=== PATIENT | male | born 1960 | race Caucasian/White ===

== ENCOUNTER 2024-09-30 11:58 | Inpatient (IN) | payer OTHER, MEDICARE ==
[~2024-09-30] VITALS: Ht 177.8 cm; Wt 70.4 kg
--- NOTE | 2024-09-30 12:47 | ED.PDOC ---
Musculoskeletal HPI Comments HPI: 64y M who presents to the ED for chief complaint of extremity pain. Pt has the following ED course. Patient denies pain in the affected extremity but he complains of numbness only. - pt has been having R foot pain for the few months but got worse lately in the last three days. - pt has been having numbness that has been constant during this time period but states he had pain 3 days prior but states that the pain is gone but the numbness is only present with the touch. He points at the dorsum of his right foot. - pt states he has previously had stents placed in R and L leg. The right extremity was done at least seven years ago - pt denies any associated fall or injury - pt denies any associated shortness of breath, chest pain or any other symptoms VITALS: Temp: 98.0 F RR: 20 02 sat : 95% on room air HR: 70 BP: 148/81 PMH: denies PSH:bilateral lower extremity stents Social history: endorses tobacco use, endorses ETOH use, denies drug use Medications: denies Allergies: none HPI: Poor Historian. Past Medcial History: Past Surgical History: REVIEW OF SYSTEMS: CONSTITUTIONAL: Denies acute: fever, diaphoresis, chills, generalized weakness. HEAD: Denies acute: headache, photophobia Eyes: Denies acute: Double vision, vision loss, eye pain, eye discharge. EARS: Denies acute: tinnitus, hearing loss, ear discharge, ear pain, THROAT: Denies acute: sore throat, swelling, difficulty swallowing , pain with swallowing, change in voice. NECK: Denies acute: neck pain, neck swelling, stiff neck. HEART: Denies acute : chest pain, palpitations, LUNGS: Denies acute: SOB, wheezing, cough, hemoptysis ABDOMEN: Denies acute: abdominal pain, Nausea, Vomiting, diarrhea, melena , hematemesis, hematochezia SKIN: Denies acute: rash, redness, lesions, itchiness. EXTREMITIES: Denies acute: calf pain, numbness, tingling, weakness, Denies acute: Low back pain. Neuro: Denies acute: focal neurological deficit, motor or sensory focal neurological deficit, tremors, seizure like activity, confusion, dizziness, change in mental status, loss of bowel or bladder function, cauda equina like symptoms. : Denies acute: dysuria, hematuria, flank pain, increase in urinary frequency. PSYCH: Denies acute: hallucination, suicidal ideation, homicidal ideation. PHYSICAL EXAM: General: no acute distress, awake and alert. Head: normocephalic, atraumatic. Neck: supple, trachea is midline, no swelling. Throat: Normal phonation. Eyes:, no erythema, no purulent discharge, no proptosis, no icterus. Heart: regular rate, regular rhythm, no significant murmur appreciated. Lungs: no apparent respiratory distress, Able to speak in full sentences. No wheezing, no rhonchi, no crackles. No stridors Clear to auscultation bilaterally. Abdomen: non tender to palpation, non distended, soft, no guarding, no rebound, + bowel sounds. Neuro: Awake, Alert, oriented to name, self, situation, follows commands GCS=15. Speech is normal. Skin: no petechia, no purpura, no cyanosis, non-pale, not jaundice. Lower extremities: --no - Pitting edema no deformity, no focal swelling, no calf TTP. Evaluation of the area of complaint which is at the dorsum of the right foot reveals no swelling no erythema. Patient is neurovascularly intact in the affected extremity. Motor and sensory are present. Makes eye contact. moves all four extremities. Face: no apparent facial droop. Ambulating in the ED independently. Pedal pulses are palpable. Chief Complaint: Lower Extremity Time Seen by MD: 13:02 Reviewed Notes: Nurses Notes, Allergies Allergies: Coded Allergies: NO KNOWN ALLERGIES (Unverified , 09/30/24) Information Source: Patient, Relative Mode of Arrival: Ambulatory Brought in by: family member Location: Right Was a procedure done? Was a procedure done?: No X-Ray, Labs, Meds, VS Vital Signs Date Time Temp Pulse Resp B/P (MAP) Pulse Ox O2 Delivery O2 Flow Rate FiO2 09/30/24 19:38 89 17 96 Room Air* 0 21 09/30/24 19:14 89 17 140/56 (84) 96 09/30/24 18:07 189/88 09/30/24 17:55 96 17 189/88 (121) 100 09/30/24 16:51 203/97 09/30/24 16:41 78 17 214/94 (134) 97 09/30/24 16:40 97.6 79 18 203/97 (132) 96 97.6 09/30/24 16:40 79 18 96 Room Air 09/30/24 12:16 98.0 70 20 148/81 (103) 95 Lab Test 09/30/24 13:14 Range/Units White Blood Count 7.2 4.4-10.8 10^3/uL Red Blood Count 4.19 L 4.5-5.90 10^6/uL Hemoglobin 13.9 13.5-17.5 g/dL Hematocrit 40.8 L 41.0-53.0 % Mean Corpuscular Volume 97.3 80.0-100.0 fL Mean Corpuscular Hemoglobin 33.2 H 28.0-32.0 pg Mean Corpuscular Hemoglobin Concent 34.2 32.0-36.0 g/dL Red Cell Distribution Width 14.4 H 11.8-14.3 % Platelet Count 277 140-450 10^3/uL Mean Platelet Volume 7.0 6.9-10.8 fL Neutrophils (%) (Auto) 50.9 37.0-80.0 % Lymphocytes (%) (Auto) 37.9 10.0-50.0 % Monocytes (%) (Auto) 7.3 0.0-12.0 % Eosinophils (%) (Auto) 3.2 0.0-7.0 % Basophils (%) (Auto) 0.7 0.0-2.0 % Neutrophils # (Auto) 3.7 1.6-8.6 10 ^3/uL Lymphocytes # (Auto) 2.7 0.4-5.4 10 ^3/uL Monocytes # (Auto) 0.5 0-1.3 10 ^3/uL Eosinophils # (Auto) 0.2 0-0.8 10 ^3/uL Basophils # (Auto) 0.1 0-0.2 10 ^3/uL Nucleated Red Blood Cells 0.0 % Erythrocyte Sedimentation Rate 16 0-20 mm/hr Sodium Level 133 L 136-145 mmol/L Potassium Level 4.4 3.5-5.1 mmol/L Chloride Level 102 98-107 mmol/L Carbon Dioxide Level 26 20-31 mmol/L Anion Gap 5 5-15 Blood Urea Nitrogen 8 L 9-23 mg/dL Creatinine 0.68 L 0.700-1.30 mg/dL Glomerular Filtration Rate Calc 103 >90 mL/min BUN/Creatinine Ratio 11.8 10.0-20.0 Serum Glucose 74 74-106 mg/dL Lactic Acid Level 1.3 0.4-2.0 mmol/L Calcium Level 9.3 8.7-10.4 mg/dL Total Bilirubin 0.2 0.2-1.0 mg/dL Aspartate Amino Transferase (AST) 21 13-40 U/L Alanine Aminotransferase (ALT) 16 7-40 U/L Alkaline Phosphatase 76 46-116 U/L Creatine Kinase 60 46-171 U/L C-Reactive Protein High Sensitivity 0.29 <1.0 mg/dL Total Protein 7.2 5.7-8.2 g/dL Albumin 4.3 3.2-4.8 g/dL Current Medications Medications (Trade) Dose Ordered Sig/Omar Route Start Time Stop Time Status Last Admin Aspirin (Ecotrin Enteric Coated Tablet) 325 mg ONCE ONCE PO 09/30/24 15:45 09/30/24 16:25 DC 09/30/24 16:32 Hydralazine HCl (Apresoline Injection) 10 mg ONCE ONCE IV 09/30/24 16:45 09/30/24 16:46 DC 09/30/24 16:51 Heparin Sodium (Porcine) 5,000 units ONCE ONCE IV 09/30/24 17:15 09/30/24 17:26 DC 09/30/24 18:10 Hydralazine HCl (Apresoline Injection) 10 mg ONCE ONCE IV 09/30/24 18:00 09/30/24 18:01 DC 09/30/24 18:07 [place] [id number] Ph: [phone] DIAGNOSTIC IMAGING Diagnostic Imaging Report : [id number] Signed PATIENT: BOB PIERRE ACCT: [id number] UNIT: [id number] : 1960 LOC: ER ROOM / BED: / AGE / SEX: 64 / M ADM STATUS: REG ER SERVICE [id number] ORDERING PHYSICIAN: MARK DUFF DO PROCEDURE(s): CTAAA - CT ANGIO ABD AORTA W RUN OFF REASON: arterial occlusion ORDER NUMBER(s): [id number], ACCESSION NUMBER(s): [id number] Examination: CT CT ANGIO ABD AORTA W RUN OFF CLINICAL HISTORY: arterial occlusion Comparison: None Technique: Using helical technique, CT data from the lung bases through the toes was obtained during rapid IV contrast infusion. The examination was timed to the arterial system to generate a CT angiographic study. 3D images were generated at an independent work station. Dose reduction techniques included automated exposure control. CONTRAST: Type of contrast: Omni 350 Contrast injected: 99ml Radiation Dose Information: CT Dose: CTDI volume is 7.08 mGy. Dose-length product is 1021.32 mGy*cm Findings: Abdominal aorta: Normal caliber, patent. Diffuse calcified atherosclerotic disease. Eccentric calcified plaque in the juxtarenal abdominal aorta results in a yxqc-dv-aojuyvlt stenosis. 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 SMA: Kbni-rx-aluhaoal stenosis of the origin of the superior mesenteric artery. Renal arteries: High-grade stenosis of the proximal right renal artery. Mild to moderate stenosis of the proximal left renal artery. Accessory right renal artery is patent. NORA: Patent Right lower extremity: Common iliac artery: High-grade stenosis or focal occlusion of the proximally. External iliac artery: Xalc-hz-gxhhblsj stenosis proximally. Internal iliac artery: Patent Common femoral artery: Bdtw-qm-wknwkjxn stenosis. Profunda femoral artery: Patent Superficial femoral artery: Occluded stent distally Popliteal artery: Patent but diminutive Anterior tibial artery: Patent Peroneal tibial trunk: Patent Peroneal artery: Patent Posterior tibial artery: Occluded Dorsalis pedis artery: Patent Left lower extremity: Common iliac artery: High-grade stenosis or focal occlusion proximally External iliac artery: Patent Internal iliac artery: Patent Common femoral artery: Vvdm-pz-qesatmmw stenosis Profunda femoral artery: Patent Superficial femoral artery: Occluded stent distally Popliteal artery: Diminutive Anterior tibial artery: Patent Peroneal tibial trunk: Patent Peroneal artery: Patent Posterior tibial artery: Patent Dorsalis pedis artery: Patent Lung bases: Clear Abdomen/Pelvis: Liver: The liver is normal in size and morphology,. No focal hepatic lesion. Biliary System: Gallbladder: Normal Bile Ducts: No intrahepatic or extrahepatic biliary ductal dilation. Spleen: No splenomegaly or focal splenic lesion. Pancreas: No masses or ductal dilation. Adrenals: Normal. Urinary System: Kidneys and Ureters: Severe right hydronephrosis. Oevn-vw-sdfeiobz left hydronephrosis. Bladder: Distended GI System: Stomach, small bowel, and large bowel are normal in caliber without wall thickening or dilation appendix is not identified. Lymph nodes: No lymphadenopathy. Peritoneal cavity and surface: No free fluid. No pneumoperitoneum. Soft Tissues: Normal. Reproductive Organs: Normal. Bones: No acute fracture or aggressive osseous lesion. Impression: Vascular: 1. Diffuse advanced atherosclerotic disease. Otgy-mt-hchlnzdo stenosis of the juxtarenal abdominal aorta. No aneurysm. Moderate stenosis of the celiac. Qufg-nq-galqbooj stenosis of the superior mesenteric. 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 Uejh-mr-gnccbmja stenosis of the left renal artery. 2. Vascular surgery or interventional radiology evaluation is recommended. Right Lower Extremity: 1. 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 2. Occluded stent in the distal right superficial femoral artery. 3. 2-vessel runoff to the right foot via the anterior tibial and peroneal arteries. Left Lower Extremity: 1. High-grade stenosis or occlusion of the proximal left common iliac artery. 2. Occluded stent in the distal left superficial femoral artery. 3. Patent 3 vessel runoff Abdomen/Pelvis: 1. Moderate to severe right hydronephrosis. Bigf-nd-nvdcekgy left hydronephrosis. Distended bladder. Suspect bladder outlet obstruction. HS:Y ATED BY: AMADO MORROW MD DICTATED DATE/TIME: 09/30/241757 SIGNED BY: AMADO MORROW MD SIGNED DATE/TIME: 09/30/241757 CC: [place] [address] Ph: [phone] DIAGNOSTIC IMAGING Diagnostic Imaging Report : [id number] Signed PATIENT: BOB PIERRE ACCT: [id number] UNIT: [id number] : 1960 LOC: ER ROOM / BED: / AGE / SEX: 64 / M ADM STATUS: REG ER SERVICE [id number] ORDERING PHYSICIAN: MARK DUFF DO PROCEDURE(s): BLDVT - BiLat Lower DVT REASON: numbness ORDER NUMBER(s): [id number], ACCESSION NUMBER(s): [id number] Bilateral lower extremity venous duplex Clinical History: numbness Comparison: None Technique: Duplex Doppler evaluation of the deep venous systems of both lower extremities from the common femoral veins to the popliteal veins including color Doppler and spectral/pulsed waveform analysis was performed. Findings: RIGHT SIDE: The common femoral vein demonstrates appropriate compressibility and waveform variability. There is compressibility/patency of the great saphenous vein at the proximal thigh. The femoral vein demonstrates appropriate compressibility and waveform variability. The deep femoral vein demonstrates appropriate compressibility and waveform variability. The popliteal vein demonstrates appropriate compressibility and waveform variability. There is normal compressibility at the tibioperoneal trunk. LEFT SIDE: The common femoral vein demonstrates appropriate compressibility and waveform variability. There is compressibility/patency of the great saphenous vein at the proximal thigh. The femoral vein demonstrates appropriate compressibility and waveform variability. The deep femoral vein demonstrates appropriate compressibility and waveform variability. The popliteal vein demonstrates appropriate compressibility and waveform variability. There is normal compressibility at the tibioperoneal trunk. Impression: 1. No right or left femoropopliteal venous thrombosis. HS:Y ATED BY: LIZ SAMPSON DO DICTATED DATE/TIME: 09/30/241432 SIGNED BY: LIZ SAMPSON DO SIGNED DATE/TIME: 09/30/241432 CC: [place] [address] Ph: [phone] DIAGNOSTIC IMAGING Diagnostic Imaging Report : [id number] Signed PATIENT: BOB PIERRE ACCT: [id number] UNIT: [id number] : 1960 LOC: ER ROOM / BED: / AGE / SEX: 64 / M ADM STATUS: REG ER SERVICE 1216 ORDERING PHYSICIAN: MARK DUFF DO PROCEDURE(s): BLEAD - BiLat Low Ext Art Duplex REASON: numbness ORDER NUMBER(s): [id number], ACCESSION NUMBER(s): [id number] EXAM: US BILAT LOW EXT ART DUPLEX HISTORY: numbness COMPARISON: US BILAT LOWER DVT on DOS: 09/30/24 TECHNIQUE: Real-time grayscale and color Doppler images of the bilateral lower extremities were obtained with spectral waveform analysis. Findings: Arterial peak systolic velocities reported in units of centimeters per second (cm/sec): Moderate atherosclerosis bilaterally. Right side: Common femoral - 82.7 Profunda - 51.9 Proximal SFA - 34.3 Mid SFA - 23.0 Distal SFA - 0 Popliteal - 0 Posterior tibial - 0 Dorsalis pedis - 7.2 Proximal and mid superficial femoral and dorsalis pedis arteries demonstrate monophasic waveforms. Stent in the mid to distal superficial artery. Left side: Common femoral - 87.6 Profunda - 116.8 Proximal SFA - 95.1 Mid SFA - 61.1 Distal SFA - 37.9 Popliteal - 6.2 Posterior tibial - 40.3 Dorsalis pedis - 17.7 Distal superficial femoral to dorsalis pedis arteries demonstrate monophasic waveforms. Stent in the distal superficial artery. IMPRESSION: 1. Occlusion of the right distal superficial femoral, popliteal, and posterior tibial arteries. 2. 75-99% stenosis of the left popliteal artery. Critical Result: Vascular occlusion Findings discussed with MARK DUFF at 09/30/2024 03:16 PM, and acknowledged receipt and understanding of the findings. ATED BY: YENY MELTON DO DICTATED DATE/TIME: 09/30/241516 SIGNED BY: YENY MELTON DO SIGNED DATE/TIME: 09/30/241516 CC: Time of 1ST Reevaluation: 17:08 (Discussed the case with the deployment manager on- call Dr. Hamilton at this time. He reviewed the ultrasound report. He recommends consulting Interventional Radiology. No further recommendations.) Time of 2ND Reevaluation: 17:22 (The case was discussed with the Interventional Radiology team (HPI, physical exam, labs and diagnostic tests that were available at the time of disposition, ED course, treatment plan) on the phone. He recommends heparin and CT angiogram with runoffs. He will review the CT scan. Dr. Mosquera. ) Time of 3RD Reevaluation: 17:40 (Case discussed with Dr. Génesis Mccartney on the phone. He said the findings are chronic.) Patient Education/Counseling: Diagnosis, Treatment Family Education/Counseling: Diagnosis, Treatment Comments MDM: Patient presented with the above HPI.----- lower extremity-- -workup was initiated. patient was found with the above mentioned diagnosis. the following medications were ordered: hydralazine, heparin, aspirin the following tests were ordered: EKG x1, bilateral lower extremity artery duplex, bilateral lower DVT, ESR, lactic acid, CMP, CBC, CRP, Patient ED course and VS have been stabilized. Patient has been reassessed in the ED and remained in a stable condition. Patient has been observed in the ED adequate length of time to insure improvement/stability. Escalation of care considered: Consideration of escalation to observation or admission. patient was ADMITTED to the medicine team for further evaluation and treatment of their presentation. All the reports of any imaging studies that were ordered by myself were reviewed by myself. Departure 1 Departure Time of Disposition: 15:31 Impression: Primary Impression: Arterial occlusion Additional Impression: Hydronephrosis Disposition: ADMITTED INPATIENT Admit to: [facility] Condition: Guarded Discharged With: Self Critical Care Note Critical Care Time?: No I personally scribed for MARK DUFF DO ([email or web address]) on 09/30/24 at 12:47. Electronically submitted by Javier Mccann ([employer]). I personally scribed for MARK DUFF DO ([email or web address]) on 09/30/24 at 12:51. Electronically submitted by Javier Mccann ([employer]). I personally scribed for MARK DUFF DO ([email or web address]) on 09/30/24 at 13:05. Electronically submitted by Javier Mccann ([employer]). I personally scribed for MARK DUFF DO ([email or web address]) on 09/30/24 at 20:39. Electronically submitted by Javier Mccann ([employer]). MARK DUFF DO Sep 30, 2024 12:47
[2024-09-30 13:26] LABS: Basophils # (auto) 0.1 10 ^3/uL (0-0.2); Basophils % (auto) 0.7 % (0.0-2.0); Eosinophils # (auto) 0.2 10 ^3/uL (0-0.8); Eosinophils % (auto) 3.2 % (0.0-7.0); Hematocrit 40.8 % (41.0-53.0); Hemoglobin 13.9 g/dL (13.5-17.5); Lymphocytes # (auto) 2.7 10 ^3/uL (0.4-5.4); Lymphocytes % (auto) 37.9 % (10.0-50.0); Mean Corpuscular Hemoglobin 33.2 pg (28.0-32.0); Mean Corpuscular Hgb Conc. 34.2 g/dL (32.0-36.0); Mean Corpuscular Volume 97.3 fL (80.0-100.0); Monocytes # (auto) 0.5 10 ^3/uL (0-1.3); Monocytes % (auto) 7.3 % (0.0-12.0); Neutrophils # (auto) 3.7 10 ^3/uL (1.6-8.6); Neutrophils % (auto) 50.9 % (37.0-80.0); Platelet Count (auto) 277 10^3/uL (140-450); Red Blood Cells 4.19 10^6/uL (4.5-5.90); Red Cell Distribution Width 14.4 % (11.8-14.3); White Blood Cell 7.2 10^3/uL (4.4-10.8)
[2024-09-30 13:47] LABS: Alanine Aminotransferase 16 U/L (7-40); Albumin 4.3 g/dL (3.2-4.8); Alkaline Phosphatase 76 U/L (46-116); Anion Gap 5 (5-15); Aspartate Aminotransferase 21 U/L (13-40); BUN/Creatinine Ratio 11.8 (10.0-20.0); CRP High Sensitivity 0.29 mg/dL (<1.0); Calcium 9.3 mg/dL (8.7-10.4); Carbon Dioxide 26 mmol/L (20-31); Chloride 102 mmol/L (98-107); Potassium 4.4 mmol/L (3.5-5.1)
[2024-09-30 13:48] LABS: Total Protein 7.2 g/dL (5.7-8.2)
[2024-09-30 13:52] LABS: Bilirubin, Total 0.2 mg/dL (0.2-1.0); Blood Urea Nitrogen 8 mg/dL (9-23); Glucose 74 mg/dL (74-106); Sodium 133 mmol/L (136-145)
[2024-09-30 13:59] LABS: Erythrocyte Sedimentation Rate 16 mm/hr (0-20)
--- NOTE | 2024-09-30 14:36 | DVH ---
Bilateral lower extremity venous duplex Clinical History: numbness Comparison: None Technique: Duplex Doppler evaluation of the deep venous systems of both lower extremities from the common femora l veins to the popliteal veins including color Doppler and spectral/pulsed waveform analysis was perf ormed. Findings: RIGHT SIDE: The common femoral vein demonstrates appropriate compressibility and waveform variability. There is compressibility/patency of the great saphenous vein at the proximal thigh. The femoral vein demonstrates appropriate compressibility and waveform variability. The deep femoral vein demonstrates appropriate compressibility and waveform variability. The popliteal vein demonstrates appropriate compressibility and waveform variability. There is normal compressibility at the tibioperoneal trunk. LEFT SIDE: The common femoral vein demonstrates appropriate compressibility and waveform variability. There is compressibility/patency of the great saphenous vein at the proximal thigh. The femoral vein demonstrates appropriate compressibility and waveform variability. The deep femoral vein demonstrates appropriate compressibility and waveform variability. The popliteal vein demonstrates appropriate compressibility and waveform variability. There is normal compressibility at the tibioperoneal trunk. Impression: 1. No right or left femoropopliteal venous thrombosis. HS:Y
--- NOTE | 2024-09-30 15:19 | DVH ---
EXAM: US BILAT LOW EXT ART DUPLEX HISTORY: numbness COMPARISON: US BILAT LOWER DVT on DOS: 09/30/24 TECHNIQUE: Real-time grayscale and color Doppler images of the bilateral lower extremities were obta ined with spectral waveform analysis. Findings: Arterial peak systolic velocities reported in units of centimeters per second (cm/sec): Moderate atherosclerosis bilaterally. Right side: Common femoral - 82.7 Profunda - 51.9 Proximal SFA - 34.3 Mid SFA - 23.0 Distal SFA - 0 Popliteal - 0 Posterior tibial - 0 Dorsalis pedis - 7.2 Proximal and mid superficial femoral and dorsalis pedis arteries demonstrate monophasic waveforms. St ent in the mid to distal superficial artery. Left side: Common femoral - 87.6 Profunda - 116.8 Proximal SFA - 95.1 Mid SFA - 61.1 Distal SFA - 37.9 Popliteal - 6.2 Posterior tibial - 40.3 Dorsalis pedis - 17.7 Distal superficial femoral to dorsalis pedis arteries demonstrate monophasic waveforms. Stent in the distal superficial artery. IMPRESSION: 1. Occlusion of the right distal superficial femoral, popliteal, and posterior tibial arteries. 2. 75-99% stenosis of the left popliteal artery. Critical Result: Vascular occlusion Findings discussed with MARK DUFF at 09/30/2024 03:16 PM, and acknowledged receipt and understandin g of the findings.
[2024-09-30] MEDS: ASPirin-EC 325mg tab PO ONE (16:32)
[2024-09-30] MEDS: hydrALAZINE HCL 20 MG/ML VL IV ONE ×2 (16:51→18:07)
[2024-09-30] MEDS: IOHEXOL 350 MG/ML 100ML IJ ONE (17:01)
--- NOTE | 2024-09-30 18:00 | DVH ---
Examination: CT CT ANGIO ABD AORTA W RUN OFF CLINICAL HISTORY: arterial occlusion Comparison: None Technique: Using helical technique, CT data from the lung bases through the toes was obtained during rapid IV contrast infusion. The examination was timed to the arterial system to generate a CT angiogr aphic study. 3D images were generated at an independent work station. Dose reduction techniques inclu ded automated exposure control. CONTRAST: Type of contrast: Omni 350 Contrast injected: 99ml Radiation Dose Information: CT Dose: CTDI volume is 7.08 mGy. Dose-length product is 1021.32 mGy*cm Findings: Abdominal aorta: Normal caliber, patent. Diffuse calcified atherosclerotic disease. Eccentric calcif ied plaque in the juxtarenal abdominal aorta results in a osjy-po-pgqvkbah stenosis. 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 SMA: Jzre-bm-ioydwszn stenosis of the origin of the superior mesenteric artery. Renal arteries: High-grade stenosis of the proximal right renal artery. Mild to moderate stenosis of the proximal left renal artery. Accessory right renal artery is patent. NORA: Patent Right lower extremity: Common iliac artery: High-grade stenosis or focal occlusion of the proximally. External iliac artery: Ycug-zl-rlrjzylf stenosis proximally. Internal iliac artery: Patent Common femoral artery: Xtxc-gn-qsgvqvlk stenosis. Profunda femoral artery: Patent Superficial femoral artery: Occluded stent distally Popliteal artery: Patent but diminutive Anterior tibial artery: Patent Peroneal tibial trunk: Patent Peroneal artery: Patent Posterior tibial artery: Occluded Dorsalis pedis artery: Patent Left lower extremity: Common iliac artery: High-grade stenosis or focal occlusion proximally External iliac artery: Patent Internal iliac artery: Patent Common femoral artery: Wcrq-od-ucpozppi stenosis Profunda femoral artery: Patent Superficial femoral artery: Occluded stent distally Popliteal artery: Diminutive Anterior tibial artery: Patent Peroneal tibial trunk: Patent Peroneal artery: Patent Posterior tibial artery: Patent Dorsalis pedis artery: Patent Lung bases: Clear Abdomen/Pelvis: Liver: The liver is normal in size and morphology,. No focal hepatic lesion. Biliary System: Gallbladder: Normal Bile Ducts: No intrahepatic or extrahepatic biliary ductal dilation. Spleen: No splenomegaly or focal splenic lesion. Pancreas: No masses or ductal dilation. Adrenals: Normal. Urinary System: Kidneys and Ureters: Severe right hydronephrosis. Jxly-pp-jttdgazg left hydronephrosis. Bladder: Distended GI System: Stomach, small bowel, and large bowel are normal in caliber without wall thickening or dil ation appendix is not identified. Lymph nodes: No lymphadenopathy. Peritoneal cavity and surface: No free fluid. No pneumoperitoneum. Soft Tissues: Normal. Reproductive Organs: Normal. Bones: No acute fracture or aggressive osseous lesion. Impression: Vascular: 1. Diffuse advanced atherosclerotic disease. Yhoc-xu-ommcfzwo stenosis of the juxtarenal abdominal ao rta. No aneurysm. Moderate stenosis of the celiac. Iuaw-zj-cujxgujd stenosis of the superior mesente alley. 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 Olef-vo-urvicqun stenosis of the left renal arter y. 2. Vascular surgery or interventional radiology evaluation is recommended. Right Lower Extremity: 1. 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 2. Occluded stent in the distal right superficial femoral artery. 3. 2-vessel runoff to the right foot via the anterior tibial and peroneal arteries. Left Lower Extremity: 1. High-grade stenosis or occlusion of the proximal left common iliac artery. 2. Occluded stent in the distal left superficial femoral artery. 3. Patent 3 vessel runoff Abdomen/Pelvis: 1. Moderate to severe right hydronephrosis. Btee-ji-cwzwdihj left hydronephrosis. Distended bladder. Suspect bladder outlet obstruction. HS:Y
[2024-09-30] MEDS: HEPARIN SODIUM (PORCINE) 5000 UNITS/ML 1ML VIAL IV ONE (18:10)
[2024-09-30 19:38] VITALS: PULSE 89; RESP 17; O2SAT 96
[2024-09-30] MEDS ORDERED: MORPHINE SULFATE INJ 2 MG/ml SYRG IV PRN (21:30)
[2024-09-30] MEDS ORDERED: NITROGLYCERIN 0.4 MG SL TAB SL PRN (21:30)
[2024-09-30] MEDS: LOSARTAN POTASSIUM 50 MG TAB PO ONE (21:45)
[2024-09-30] MEDS: NIFEdipine ER 30 MG TAB PO ONE (21:45)
[2024-09-30 22:25] LABS: Basophils # (auto) 0 10 ^3/uL (0-0.2); Basophils % (auto) 0.5 % (0.0-2.0); Eosinophils # (auto) 0.2 10 ^3/uL (0-0.8); Eosinophils % (auto) 1.9 % (0.0-7.0); Hematocrit 40.2 % (41.0-53.0); Hemoglobin 13.9 g/dL (13.5-17.5); Lymphocytes # (auto) 1.8 10 ^3/uL (0.4-5.4); Lymphocytes % (auto) 20.5 % (10.0-50.0); Mean Corpuscular Hemoglobin 33.9 pg (28.0-32.0); Mean Corpuscular Hgb Conc. 34.6 g/dL (32.0-36.0); Mean Corpuscular Volume 97.9 fL (80.0-100.0); Monocytes # (auto) 0.9 10 ^3/uL (0-1.3); Monocytes % (auto) 10.8 % (0.0-12.0); Neutrophils # (auto) 5.7 10 ^3/uL (1.6-8.6); Neutrophils % (auto) 66.3 % (37.0-80.0); Platelet Count (auto) 268 10^3/uL (140-450); Red Cell Distribution Width 14.1 % (11.8-14.3); White Blood Cell 8.6 10^3/uL (4.4-10.8)
[2024-09-30] MEDS ORDERED: HEPARIN DRIP/D5W 100UNITS/ML 250 ML IV SCH (22:30)
[2024-09-30 22:57] LABS: Alanine Aminotransferase 16 U/L (7-40); Albumin 4.5 g/dL (3.2-4.8); Alkaline Phosphatase 106 U/L (46-116); Anion Gap 3 (5-15); Aspartate Aminotransferase 23 U/L (13-40); BUN/Creatinine Ratio 17.3 (10.0-20.0); Blood Urea Nitrogen 13 mg/dL (9-23); Calcium 9.6 mg/dL (8.7-10.4); Carbon Dioxide 27 mmol/L (20-31); Chloride 103 mmol/L (98-107); LDL Cholesterol 83 mg/dL (< 100); Potassium 4.2 mmol/L (3.5-5.1)
[2024-09-30 22:58] LABS: Cholesterol 151 mg/dL (< 200); HDL Cholesterol 53 mg/dL (40-59)
[2024-09-30 22:59] LABS: Total Protein 7.8 g/dL (5.7-8.2)
[2024-09-30 23:00] LABS: Bilirubin, Total 0.2 mg/dL (0.2-1.0); Glucose 122 mg/dL (74-106); Sodium 133 mmol/L (136-145); Triglycerides 151 mg/dL (< 150)
[2024-09-30 23:04] LABS: INR 1.08 (0.9-1.15); Partial Thromboplastin Time 29.9 SEC (24.5-34.5); Prothrombin Time 11.4 sec (9.3-11.8)
--- NOTE | 2024-09-30 23:11 | DVHHPRES ---
History of Present Illness Resident Creating Document: DEVYN QUINTERO RESIDENT History of Present Illness Patient 64-year-old male with a past medical history hypertension and peripheral artery disease came to the ED with a chief complaint of right foot numbness for the past 3 days. Patient reports that 3 days ago he started to feel numbness in his right foot hand with a past 2-3 months he reports pain in his left calf after walking for about 100 ft. Patient also reports intermittent dizziness on walking but has not had an episode of loss of consciousness. Patient has a histo ry of peripheral artery disease with stents to his left and right femoral arteries. While in the ER patient's blood pressure was elevated at 203/97 mmHg following which he was given a dose of hydralazine 10 mg and another dose given about 4 hours later for elevated blood pressure SBP greater than 200. Past Medical History Hypertension(not on any medication), peripheral artery disease, generalized anxiety disorder Past Surgical History Peripheral artery disease s/p PTCA x 2 Stent to the left femoral in 2021, right femoral 2018 Past Social History 50 pack year smoking history, drinks 4-5 short can of beer every day Denies any other drug use Review of Systems Review of Systems Patient was seen and examined at the bedside. Patient reports numbness in the right foot but denies pain in the right or left leg Denies chest pain, shortness of breath, dizziness, headache, vision changes Allergies: Coded Allergies: NO KNOWN ALLERGIES (Unverified , 09/30/24) Medications Current Medications Medications Dose Ordered Sig/Omar Route Start Time Stop Time Status Last Admin Dose Admin Nitroglycerin 0.4 mg Q5MINP PRN SL 09/30/24 21:30 Morphine Sulfate 2 mg Q30M PRN IV 09/30/24 21:30 Heparin Sodium/ Dextrose 250 ml @ 10.008 mls/ hr Q24H IV 09/30/24 21:30 UNV Heparin Sodium/ Dextrose 250 ml @ 10 mls/hr Q24H IV 09/30/24 22:30 Exam Vital Signs Vital Signs Date Time Temp Pulse Resp B/P (MAP) Pulse Ox O2 Delivery O2 Flow Rate FiO2 09/30/24 21:45 228/103 09/30/24 21:00 79 16 100 09/30/24 19:38 Room Air* 0 21 09/30/24 16:40 97.6 97.6 Exam Physical Examination Constitutional- patient was alert and oriented to time, place and person. Patient walks with a limp. Gen - no pallor, no icterus, no cyanosis, no clubbing, no LAD, no edema . HEENT - normocephalic, atraumatic, dry mucous membranes, bilateral carotid bruit heard Neck - full ROM, no LAD, no JVD Pulmonary - B/L breath sounds heard. no crackles, no wheezing cardiovascular - normal S1,S2 heard. no cardiac murmurs. Radial pulses 2+, dorsalis pedis and posterior tibial pulse not felt bilaterally. capillary refill >4 seconds in the toes GI - soft abdomen without tenderness to palpation. no hepatospleenomegaly. Bowel sounds normoactive Neurological - Patient is A/O X 3. Bilateral upper extremity strength 5/5, bilateral lower extremity strength 5/5, no facial droop, normal speech, no tremor, no sensory deficiets. Extremities: Both the feet are cold and clammy. No ulcers seen Labs/Xrays Labs Test 09/30/24 22:00 09/30/24 13:14 Range/Units Eosinophils (%) (Auto) 3.2 0.0-7.0 % Eosinophils # (Auto) 0.2 0-0.8 10 ^3/uL Basophils # (Auto) 0.1 0-0.2 10 ^3/uL Nucleated Red Blood Cells 0.0 % Erythrocyte Sedimentation Rate 16 0-20 mm/hr Lactic Acid Level 1.3 0.4-2.0 mmol/L Creatine Kinase 60 46-171 U/L C-Reactive Protein High Sensitivity 0.29 <1.0 mg/dL Assessment/Plan Assessment/Plan Assessment and plan # Peripheral artery disease - Bilateral lower extremity arterial duplex shows occlusion of the right distal superficial femoral, popliteal, posterior tibial and 75-99% stenosis of the left popliteal artery. - CT angio abdominal aorta with runoff 1. Right lower extremity: High-grade stenosis or occlusion of the proximal right common iliac, occluded stent in the distal right superficial femoral, two- vessel runoff to the right foot via the anterior tibial and peroneal arteries. 2. Left lower extremity: High-grade stenosis or occlusion of the proximal left common iliac artery, occluded stent in the distal left superficial femoral, patent three-vessel runoff. - Given loading dose of aspirin 325 mg - on heparin drip - aspirin 81 mg q.d. - atorvastatin 80 mg q.d. - vascular surgeon consulted - cardiology consulted # Hypertensive urgency # Renal artery stenosis - CT angio abdominal aorta runoff shows Diffuse advanced atherosclerotic disease, kkbz-sk-vypwnmie stenosis of the juxtarenal abdominal aorta, no aneurysm. Moderate stenosis of the celiac. Sbtl-vl-yhhyilvi stenosis of the superior mesenteric. 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 Lbbc-yn-fwpzlzwx stenosis of the left renal artery. - patient is started on losartan 50 mg and nifedipine 90 mg - hydralazine p.r.n. # Suspected BPH # Bilateral hydronephrosis - CT shows Sedxkmlo-dg-ucowtl right hydronephrosis, mild to moderate left hydronephrosis, distended bladder. suspicion for bladder outlet obstruction - urology consulted - postvoid bladder scan shows Goals of care discussed with the patient for over 29 minutes. Full code Plan discussed with Dr. Medina Plan discussed with: Patient My Orders Orders - DEVYN QUINTERO RESIDENT Procedure Category Date Status Time Admit ADMIT 09/30/24 Transmitted 21:27 Nitroglycerin PHA 09/30/24 In Process Sublingual (Ntrostat 21:30 Morphine Sulfate PHA 09/30/24 In Process Injection 21:30 Oxygen By Nasal RT 09/30/24 Transmitted Cannula 21:27 Stat Ekg For Chest [facility] 09/30/24 In Process Pain 21:27 Plant Changer For [facility] 09/30/24 In Process 24 Hours 21:27 Platelet Monitoring [facility] 09/30/24 In Process 21:27 Vte Protocol Initiated [facility] 09/30/24 In Process 21:27 Heparin Per [facility] 09/30/24 In Process Standardized Proce 21:27 Discontinue All Im [facility] 09/30/24 In Process Injections 21:27 PTPTT LAB 09/30/24 In Process 21:27 Complete Blood Count LAB 09/30/24 In Process 21:27 Heparin Drip/D5w PHA 09/30/24 Logged 100units/Ml 21:30 Comprehensive LAB 09/30/24 In Process Metabolic Panel 21:27 Covid19 Antigen [facility] LAB 09/30/24 Logged Rapid Influenza A&B LAB 09/30/24 Logged 21:27 Urinalysis LAB 09/30/24 Logged 21:27 Drug Screen LAB 09/30/24 Logged 21:27 Hemoglobin A1c LAB 09/30/24 In Process 21:27 Lipid Panel LAB 09/30/24 In Process 21:27 Heparin Drip/D5w PHA 09/30/24 In Process 100units/Ml 22:30 Aspirin Tablet PHA 10/01/24 Transmitted 10:00 Atorvastatin (Lipitor) PHA 10/01/24 Transmitted 22:00 Atorvastatin (Lipitor) PHA 09/30/24 Transmitted 22:30 Date of Service: Sep 30, 2024 Billing Provider: ALYSON MEDINA MD Common Visit Codes: [id number] INP/OBS CARE (HIGH) Secondary Visit Codes: [id number] CARE PLAN 30 MINUTES DEVYN QUINTERO RESIDENT Sep 30, 2024 23:11 ALYSON MEDINA MD Oct 01, 2024 10:44
[2024-09-30] MEDS: ATORVASTATIN 20 MG TAB PO ONE (23:27)
[2024-09-30] MEDS: HEPARIN DRIP/D5W 100UNITS/ML 250 ML IV SCH (23:30)
--- NOTE | 2024-09-30 23:38 | DVHINCON2 ---
Date of service: Sep 30, 2024 Referring Physician Shyam Reason for Consultation Arterial Occlusion History of Present Illness This is a 64 year old male with a PMH of previous stent placement who presented to the ED with complaints of right foot pain with numbness x3 days. Patient states that the symptoms have been lingering over the last few months however has worsened over the last 3 days. Patient states that he has previously had stents placed in both his lower extremities. The right extremity was done at least seven years ago. BLE Venous duplex showed an occlusion of the right distal superficial femoral, popliteal, and posterior tibial arteries. 75-99% stenosis of the left popliteal artery. Bilateral lower extremity venous duplex was negative for DVT. Patient was admitted to the hospital. I am asked to consult on this patient. Allergies: Coded Allergies: NO KNOWN ALLERGIES (Unverified , 09/30/24) Review of Systems CONSTITUTIONAL: Denies acute: fever, diaphoresis, chills, generalized weakness. HEAD:Denies acute: headache, photophobia Eyes:Denies acute: Double vision, vision loss, eye pain, eye discharge. EARS: Denies acute: tinnitus, hearing loss, ear discharge, ear pain, THROAT: Denies acute: sore throat, swelling, difficulty swallowing , pain with swallowing, change in voice. NECK:Denies acute: neck pain, neck swelling, stiff neck. HEART:Denies acute : chest pain, palpitations, LUNGS:Denies acute: SOB, wheezing, cough, hemoptysis ABDOMEN:Denies acute: abdominal pain, Nausea, Vomiting, diarrhea, melena , hematemesis, hematochezia SKIN:Denies acute: rash, redness, lesions, itchiness. EXTREMITIES:Denies acute: calf pain, numbness, tingling, weakness, Denies acute: Low back pain. Neuro:Denies acute: focal neurological deficit, motor or sensory focal neurological deficit, tremors, seizure like activity, confusion, dizziness, change in mental status, loss of bowel or bladder function, cauda equina like symptoms. : Denies acute: dysuria, hematuria, flank pain, increase in urinary frequency. PSYCH: Denies acute: hallucination, suicidal ideation, homicidal ideation. Vital Signs Vital Signs Date Time Temp Pulse Resp B/P (MAP) Pulse Ox O2 Delivery O2 Flow Rate FiO2 09/30/24 16:51 203/97 09/30/24 16:41 78 17 97 09/30/24 16:40 97.6 97.6 09/30/24 16:40 Room Air Physical Exam GENERAL: Awake, alert, oriented. Patient walks with a limp. LUNGS: Clear. CARDIOVASCULAR: Heart sounds are good. ABDOMEN: Soft. Labs/Diagnostic Data Labs Test 09/30/24 13:14 Range/Units White Blood Count 7.2 4.4-10.8 10^3/uL Red Blood Count 4.19 L 4.5-5.90 10^6/uL Hemoglobin 13.9 13.5-17.5 g/dL Hematocrit 40.8 L 41.0-53.0 % Mean Corpuscular Volume 97.3 80.0-100.0 fL Mean Corpuscular Hemoglobin 33.2 H 28.0-32.0 pg Mean Corpuscular Hemoglobin Concent 34.2 32.0-36.0 g/dL Red Cell Distribution Width 14.4 H 11.8-14.3 % Platelet Count 277 140-450 10^3/uL Mean Platelet Volume 7.0 6.9-10.8 fL Neutrophils (%) (Auto) 50.9 37.0-80.0 % Lymphocytes (%) (Auto) 37.9 10.0-50.0 % Monocytes (%) (Auto) 7.3 0.0-12.0 % Eosinophils (%) (Auto) 3.2 0.0-7.0 % Basophils (%) (Auto) 0.7 0.0-2.0 % Neutrophils # (Auto) 3.7 1.6-8.6 10 ^3/uL Lymphocytes # (Auto) 2.7 0.4-5.4 10 ^3/uL Monocytes # (Auto) 0.5 0-1.3 10 ^3/uL Eosinophils # (Auto) 0.2 0-0.8 10 ^3/uL Basophils # (Auto) 0.1 0-0.2 10 ^3/uL Nucleated Red Blood Cells 0.0 % Erythrocyte Sedimentation Rate 16 0-20 mm/hr Sodium Level 133 L 136-145 mmol/L Potassium Level 4.4 3.5-5.1 mmol/L Chloride Level 102 98-107 mmol/L Carbon Dioxide Level 26 20-31 mmol/L Anion Gap 5 5-15 Blood Urea Nitrogen 8 L 9-23 mg/dL Creatinine 0.68 L 0.700-1.30 mg/dL Glomerular Filtration Rate Calc 103 >90 mL/min BUN/Creatinine Ratio 11.8 10.0-20.0 Serum Glucose 74 74-106 mg/dL Lactic Acid Level 1.3 0.4-2.0 mmol/L Calcium Level 9.3 8.7-10.4 mg/dL Total Bilirubin 0.2 0.2-1.0 mg/dL Aspartate Amino Transferase (AST) 21 13-40 U/L Alanine Aminotransferase (ALT) 16 7-40 U/L Alkaline Phosphatase 76 46-116 U/L C-Reactive Protein High Sensitivity 0.29 <1.0 mg/dL Total Protein 7.2 5.7-8.2 g/dL Albumin 4.3 3.2-4.8 g/dL Assessment Peripheral artery disease. Hypertensive urgency. Renal artery stenosis. Bilateral hydronephrosis. Plan/Recommendation I agree with your ongoing assessment and care of plan. Aspirin, Lipitor. IV Hydralazine for SBP >170. Heparin drip per protocol. Morphine for pain management. Additional plan as per the hospital course. A total of 45 minutes was spent reviewing the patient record, examining the patient, making a diagnostic and therapeutic plan, discussing this plan with medical personnel, following up on diagnostic studies and following the patient for clinical stability excluding any and all procedures. At least 50% of this time was spent in direct, [id number] contact. Plan discussed with: Patient DEWAYNE SAMANO MD Sep 30, 2024 17:21
[2024-09-30 23:58] LABS: COVID19 ANTIGEN SOFIA FIA NEGATIVE (NEGATIVE); Rapid Influenza A Negative (Negative); Rapid Influenza B Negative (Negative)
[2024-10-01] VITALS (7 sets, daily range): BP systolic 141–143; BP diastolic 63–73; PULSE 76–92; RESP 16–25; TEMP 97.7–97.8; O2SAT 95–98
[2024-10-01] MEDS: hydrALAZINE HCL 20 MG/ML VL IV PRN (00:09)
--- NOTE | 2024-10-01 00:21 | DVH ---
CT BRAIN WITHOUT CONTRAST HISTORY: SBP>200mmhg TECHNIQUE: Axial scans were obtained from the skull base through the vertex without contrast. Sagitta l and coronal reformats were generated. One or more of the following radiation dose reduction technSpareTime ues were used for this examination: automated exposure control, adjustment of the mA and/or kV accord ing to patient size, use of iterative reconstruction technique. COMPARISON: None FINDINGS: No acute intracranial hemorrhage or evidence of large vessel territorial infarction identified at thi s time. No midline shift. The basilar cisterns are patent. Mucosal thickening in the frontal, ethmoidal and maxillary sinuses. Mastoid air cells are clear. No g rossly displaced calvarial abnormalities identified. IMPRESSION: No acute intracranial findings. Frontal, ethmoidal and maxillary sinus mucosal thickening. Correlate for sinusitis. HS:Y
--- NOTE | 2024-10-01 00:26 | DVH ---
Carotid Doppler Examination CLINICAL HISTORY: B/L carotid bruit heard TECHNIQUE: Real-time high resolution grayscale imaging and color Doppler flow imaging with pulsed du plex sonography of the carotid and vertebral arteries is performed. Velocity criteria are extrapolated from angiographic diameter data as defined by the Society of [employer] in Ultrasound Consensus Conference (Radiology 2003; 229: 340-346). FINDINGS: Calcified plaquing noted in the bilateral carotid bulbs, internal and external carotid arteries. Ante grade flow in the bilateral vertebral arteries. Peak systolic velocities (cm/s): Right ICA proximal: 234.1 Right ICA mid: 205.6 Right ICA distal: 151.0 Right systolic ICA/CCA ratio: 2.0 Left ICA proximal: 385.1 Left ICA mid: 227.8 Left ICA distal: 128.6 Left systolic ICA/CCA ratio: 2.7 IMPRESSION: Estimated 50-69% stenosis in the right internal carotid artery. Estimated greater than 70% stenosis in the left internal carotid artery. Antegrade flow in the bilateral vertebral arteries. HS:Y
[2024-10-01] MEDS: LOSARTAN POTASSIUM 50 MG TAB PO ONE (01:43)
[2024-10-01] MEDS: hydrALAZINE HCL 25 MG TAB PO SCH (01:43)
[2024-10-01 06:20] LABS: INR 1.09 (0.9-1.15); Partial Thromboplastin Time 44.5 SEC (24.5-34.5); Prothrombin Time 11.5 sec (9.3-11.8)
[2024-10-01] MEDS: HEPARIN DRIP/D5W 100UNITS/ML 250 ML IV SCH (06:54)
[2024-10-01 09:02] LABS: Basophils % (auto) 0.6 % (0.0-2.0); Eosinophils # (auto) 0.1 10 ^3/uL (0-0.8); Monocytes # (auto) 1.1 10 ^3/uL (0-1.3); Red Blood Cells 3.93 10^6/uL (4.5-5.90); Red Cell Distribution Width 14.2 % (11.8-14.3)
[2024-10-01 09:04] LABS: Basophils # (auto) 0.1 10 ^3/uL (0-0.2); Eosinophils % (auto) 0.9 % (0.0-7.0); Hematocrit 38.6 % (41.0-53.0); Hemoglobin 13.2 g/dL (13.5-17.5); Lymphocytes # (auto) 2.1 10 ^3/uL (0.4-5.4); Lymphocytes % (auto) 24.8 % (10.0-50.0); Mean Corpuscular Hemoglobin 33.5 pg (28.0-32.0); Mean Corpuscular Hgb Conc. 34.1 g/dL (32.0-36.0); Mean Corpuscular Volume 98.3 fL (80.0-100.0); Monocytes % (auto) 12.7 % (0.0-12.0); Neutrophils # (auto) 5.2 10 ^3/uL (1.6-8.6); Platelet Count (auto) 283 10^3/uL (140-450); White Blood Cell 8.5 10^3/uL (4.4-10.8)
[2024-10-01] MEDS: ASPirin 81 mg TAB PO SCH (13:26)
[2024-10-01] MEDS: MINOXIDIL 2.5 MG TAB PO SCH (13:27)
[2024-10-01 14:00] LABS: INR 1.08 (0.9-1.15); Partial Thromboplastin Time 54.7 SEC (24.5-34.5); Prothrombin Time 11.4 sec (9.3-11.8)
--- NOTE | 2024-10-01 14:40 | DVHPNRES ---
Progress Note Date Seen: Oct 01, 2024 Resident Creating Document: BRANDI HOPPER RESIDENT Medical Necessity Reason Pt with a Central, PICC or Fol: No Subjective Review of Systems Patient seen and examined at bedside. Patient is currently mentioning of night for numbness. Review of Systems Patient reports numbness in the right foot but denies pain in the right or left leg Denies chest pain, shortness of breath, dizziness, headache, vision changes Objective vital signs Vital Sign Date Time Temp Pulse Resp B/P (MAP) Pulse Ox O2 Delivery O2 Flow Rate FiO2 10/01/24 13:28 74 24 127/61 (83) 95 10/01/24 08:20 Room Air* 0 21 09/30/24 16:40 97.6 97.6 Total Intake and Output 09/30/24 09/30/24 10/01/24 15:00 23:00 07:00 Intake Total 70 ml Balance 70 ml medications Current Medications Medications Dose Ordered Sig/Omar Route Start Time Stop Time Status Last Admin Dose Admin Heparin Sodium/ Dextrose 250 ml @ 10 mls/hr Q24H IV 09/30/24 22:30 Cancel Aspirin 81 mg DAILY PO 10/01/24 10:00 10/01/24 13:26 81 MG Atorvastatin Calcium 80 mg HS PO 10/01/24 22:00 Hydralazine HCl 50 mg Q8HR PO 10/01/24 01:30 10/01/24 06:03 50 MG Heparin Sodium/ Dextrose 250 ml @ 12 mls/hr [id number] IV 10/01/24 06:45 10/01/24 06:54 12 MLS/HR Minoxidil 5 mg DAILY PO 10/01/24 10:00 10/01/24 13:27 5 MG Examination Physical Examination Constitutional- patient was alert and oriented to time, place and person. Patient walks with a limp. Gen - no pallor, no icterus, no cyanosis, no clubbing, no LAD, no edema . HEENT - normocephalic, atraumatic, dry mucous membranes, bilateral carotid bruit heard Neck - full ROM, no LAD, no JVD Pulmonary - B/L breath sounds heard. no crackles, no wheezing cardiovascular - normal S1,S2 heard. no cardiac murmurs. Radial pulses 2+, dorsalis pedis and posterior tibial pulse not felt bilaterally. capillary refill >4 seconds in the toes GI - soft abdomen without tenderness to palpation. no hepatosplenomegaly. Bowel sounds normoactive Neurological - Patient is A/O X 3. Bilateral upper extremity strength 5/5, bilateral lower extremity strength 5/5, no facial droop, normal speech, no tremor, no sensory deficiets. Extremities: Both the feet are cold and clammy. No ulcers seen laboratory and microbiology Laboratory Tests 10/01/24 05:35 09/30/24 22:00 Test 09/30/24 22:00 Range/Units Serum Glucose 122 H 74-106 mg/dL Labs and/or images reviewed: Labs reviewed by me, Image(s) reviewed by me Problem List/Assessment/Plan Problem List/Assessment/Plan Assessment/plan # Peripheral artery disease - Bilateral lower extremity arterial duplex shows occlusion of the right distal superficial femoral, popliteal, posterior tibial and 75-99% stenosis of the left popliteal artery. - CT angio abdominal aorta with runoff 1. Right lower extremity: High-grade stenosis or occlusion of the proximal right common iliac, occluded stent in the distal right superficial femoral, two- vessel runoff to the right foot via the anterior tibial and peroneal arteries. 2. Left lower extremity: High-grade stenosis or occlusion of the proximal left common iliac artery, occluded stent in the distal left superficial femoral, patent three-vessel runoff. - Given loading dose of aspirin 325 mg - on heparin drip - aspirin 81 mg q.d. - atorvastatin 80 mg q.d. - vascular surgeon consulted - cardiology consulted # Hypertensive urgency # Renal artery stenosis - CT angio abdominal aorta runoff shows Diffuse advanced atherosclerotic disease, jskg-eq-efyweigv stenosis of the juxtarenal abdominal aorta, no aneurysm. Moderate stenosis of the celiac. Tnyc-vp-adossqxi stenosis of the superior mesenteric. 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 Llfq-qo-kvfnxhfv stenosis of the left renal artery. - hydralazine 50mg Q8 -minoxidil 5mg daily # Suspected BPH # Bilateral hydronephrosis - CT shows Deepgksy-tw-tkrnwg right hydronephrosis, mild to moderate left hydronephrosis, distended bladder. suspicion for bladder outlet obstruction - urology consulted -strict input and output Goals of care discussed with the patient for over 29 minutes. Full code Plan discussed with Dr. Pro Plan discussed with: Patient, Other Date of Service: Oct 01, 2024 Billing Provider: GRIFFIN PRO MD Common Visit Codes: [id number] INP/OBS CARE(HIGH) BRANDI HOPPER RESIDENT Oct 01, 2024 14:40 GRIFFIN PRO MD Oct 01, 2024 21:43
[2024-10-01] MEDS: NICOTINE 21MG/24 HR TOPICAL PATCH TD ONE (15:30)
--- NOTE | 2024-10-01 19:44 | DVHPN2 ---
Progress Note - Dictate Date Seen: Oct 01, 2024 Medical Necessity Reason Pt with a Central, PICC or Fol: No Subjective Patient was seen and evaluated in follow up. Patient is complaining of generalized pain and numbness in the right rocky. Patient is continued on heparin drip. vital signs Vital Sign Date Time Temp Pulse Resp B/P (MAP) Pulse Ox O2 Delivery O2 Flow Rate FiO2 10/01/24 06:03 138/47 10/01/24 05:25 76 22 94 10/01/24 00:00 Room Air* 0 21 09/30/24 16:40 97.6 97.6 Total Intake and Output 09/30/24 09/30/24 10/01/24 15:00 23:00 07:00 Intake Total 70 ml Balance 70 ml medications Current Medications Medications Dose Ordered Sig/Omar Route Start Time Stop Time Status Last Admin Dose Admin Heparin Sodium/ Dextrose 250 ml @ 10 mls/hr Q24H IV 09/30/24 22:30 Cancel Aspirin 81 mg DAILY PO 10/01/24 10:00 Atorvastatin Calcium 80 mg HS PO 10/01/24 22:00 Hydralazine HCl 50 mg Q8HR PO 10/01/24 01:30 10/01/24 06:03 50 MG Heparin Sodium/ Dextrose 250 ml @ 12 mls/hr [id number] IV 10/01/24 06:45 10/01/24 06:54 12 MLS/HR Minoxidil 5 mg DAILY PO 10/01/24 10:00 objective GENERAL: Awake, alert, oriented. Patient walks with a limp. LUNGS: Clear. CARDIOVASCULAR: Heart sounds are good. ABDOMEN: Soft. laboratory and microbiology Laboratory Tests 10/01/24 05:35 09/30/24 22:00 Test 09/30/24 22:00 Range/Units Serum Glucose 122 H 74-106 mg/dL Problem List Peripheral artery disease. Hypertensive urgency. Renal artery stenosis. Bilateral hydronephrosis. Assessment/Plan Continued all current supportive medical care. Aspirin, Lipitor. IV Hydralazine for SBP >170. Heparin drip per protocol. Morphine for pain management. Additional plan as per the hospital course. Plan discussed with: Patient DEWAYNE SAMANO MD Oct 01, 2024 11:31
[2024-10-01 19:54] LABS: INR 1.08 (0.9-1.15); Partial Thromboplastin Time 50.7 SEC (24.5-34.5); Prothrombin Time 11.4 sec (9.3-11.8)
[2024-10-01] MEDS: ATORVASTATIN 20 MG TAB PO SCH (21:09)
[2024-10-02] VITALS (8 sets, daily range): BP systolic 110–150; BP diastolic 60–80; PULSE 71–90; RESP 17–20; TEMP 97.8–98.5; O2SAT 93–97
[2024-10-02 01:40] LABS: INR 1.07 (0.9-1.15); Partial Thromboplastin Time 47.2 SEC (24.5-34.5); Prothrombin Time 11.3 sec (9.3-11.8)
[2024-10-02] MEDS: HEPARIN DRIP/D5W 100UNITS/ML 250 ML IV SCH (02:15)
[2024-10-02 06:54] LABS: Basophils # (auto) 0.1 10 ^3/uL (0-0.2); Basophils % (auto) 0.7 % (0.0-2.0); Eosinophils # (auto) 0.1 10 ^3/uL (0-0.8); Hematocrit 35.5 % (41.0-53.0); Hemoglobin 12.3 g/dL (13.5-17.5); Lymphocytes # (auto) 2.3 10 ^3/uL (0.4-5.4); Lymphocytes % (auto) 32.2 % (10.0-50.0); Mean Corpuscular Hemoglobin 33.8 pg (28.0-32.0); Mean Corpuscular Hgb Conc. 34.5 g/dL (32.0-36.0); Mean Corpuscular Volume 97.9 fL (80.0-100.0); Monocytes # (auto) 0.9 10 ^3/uL (0-1.3); Monocytes % (auto) 13.1 % (0.0-12.0); Neutrophils # (auto) 3.7 10 ^3/uL (1.6-8.6); Platelet Count (auto) 250 10^3/uL (140-450); Red Blood Cells 3.62 10^6/uL (4.5-5.90); Red Cell Distribution Width 14.3 % (11.8-14.3); White Blood Cell 7.2 10^3/uL (4.4-10.8)
[2024-10-02 07:04] LABS: Anion Gap 5 (5-15); Carbon Dioxide 26 mmol/L (20-31); Chloride 106 mmol/L (98-107); Potassium 3.9 mmol/L (3.5-5.1); Sodium 137 mmol/L (136-145)
[2024-10-02 07:05] LABS: Calcium 9.3 mg/dL (8.7-10.4)
[2024-10-02 07:09] LABS: Glucose 102 mg/dL (74-106)
[2024-10-02 07:10] LABS: Blood Urea Nitrogen 16 mg/dL (9-23); Magnesium 1.8 mg/dL (1.6-2.6)
[2024-10-02 09:53] LABS: INR 1.09 (0.9-1.15); Partial Thromboplastin Time 61.8 SEC (24.5-34.5); Prothrombin Time 11.5 sec (9.3-11.8)
[2024-10-02] MEDS: NICOTINE 21MG/24 HR TOPICAL PATCH TD SCH (10:45)
--- NOTE | 2024-10-02 12:54 | DVHPNRES ---
Progress Note Date Seen: Oct 02, 2024 Resident Creating Document: GWENDOLYN LANDRY RESIDENT Medical Necessity Reason Pt with a Central, PICC or Fol: No Subjective Review of Systems Patient 64-year-old male with a past medical history hypertension and peripheral artery disease came to the ED with a chief complaint of right foot numbness for the past 3 days. Patient reports that 3 days ago he started to feel numbness in his right foot hand with a past 2-3 months he reports pain in his left calf after walking for about 100 ft. Patient also reports intermittent dizziness on walking but has not had an episode of loss of consciousness. Patient has a history of peripheral artery disease with stents to his left and right femoral arteries. While in the ER patient's blood pressure was elevated at 203/97 mmHg following which he was given a dose of hydralazine 10 mg and another dose given about 4 hours later for elevated blood pressure SBP greater than 200. Past Medical History Hypertension(not on any medication), peripheral artery disease, generalized anxiety disorder Past Surgical History Peripheral artery disease s/p PTCA x 2 Stent to the left femoral in 2021, right femoral 2018 Past Social History 50 pack year smoking history, drinks 4-5 short can of beer every day Denies any other drug use Patient seen and examined at bedside. Patient is alert and oriented to time, place person and responding to all questions. Patient notes continued numbness, decreased sensation in the right foot that he notes started on Thursday, however, denies any change in his symptoms from yesterday 10/01/2024. Eyes: No Pain, No Vision change, No Conjunctivae inflammation, No Eyelid inflammation, No Other, No Redness ENT: No Ear pain, No Ear discharge, No Nose pain, No Nose discharge, No Nose congestion, No Mouth pain, No Mouth swelling, No Throat pain, No Throat swelling, No Other Cardiovascular: No Chest Pain, No Palpitations, No Orthopnea, No Paroxysmal No Dyspnea, No Edema, No Lt Headedness, No Other Respiratory: No Cough, No Dry, No Shortness of breath, No SOB with exertion, No Wheezing, No Hemoptysis, No Pleuritic Pain, No Sputum, No Other Gastrointestinal: No Nausea, No Vomiting, No Abdominal Pain, No Diarrhea, No Constipation, No Melena, No Hematochezia, No Other Genitourinary: No Dysuria, No Frequency, No Incontinence, No Hematuria, No Retention, No Other Musculoskeletal: No other, No neck pain, No shoulder pain, No arm pain, No back pain, No hand pain, No leg pain, No foot pain Skin: No Rash, No Lesions, No Jaundice, No Bruising, No Other Objective vital signs Vital Sign Date Time Temp Pulse Resp B/P (MAP) Pulse Ox O2 Delivery O2 Flow Rate FiO2 10/02/24 10:00 107/71 10/02/24 09:00 97.8 80 20 97 97.8 10/02/24 08:00 Room Air* 0 21 Total Intake and Output 10/01/24 10/01/24 10/02/24 15:00 23:00 07:00 Intake Total 964 ml Output Total 600 ml Balance 364 ml medications Current Medications Medications Dose Ordered Sig/Omar Route Start Time Stop Time Status Last Admin Dose Admin Heparin Sodium/ Dextrose 250 ml @ 10 mls/hr Q24H IV 09/30/24 22:30 Cancel Aspirin 81 mg DAILY PO 10/01/24 10:00 10/02/24 10:45 81 MG Atorvastatin Calcium 80 mg HS PO 10/01/24 22:00 10/01/24 21:09 80 MG Hydralazine HCl 50 mg Q8HR PO 10/01/24 01:30 10/01/24 21:10 50 MG Minoxidil 5 mg DAILY PO 10/01/24 10:00 10/01/24 13:27 5 MG Nicotine 1 patch DAILY TD 10/02/24 10:00 10/02/24 10:45 1 PATCH Heparin Sodium/ Dextrose 250 ml @ 14 mls/hr [id number] IV 10/02/24 02:15 10/02/24 02:15 14 MLS/HR Examination General Appearance: Cooperative. Well developed. Well nourished. NAD Head Exam: Normal inspection Neck Exam: Normal inspection. Non-tender. Normal alignment Pulmonary/Respiratory: Chest non-tender. Decrease bilateral breath sounds, no crackles, no wheezing. Cardiovascular/Chest: Regular rate and rhythm. No murmurs. No JVD. Peripheral Pulses: 2+ Radial (R). 2+ Radial (L). 2+ Pedal (R). 2+ Pedal (L) Abdominal Exam: Normal bowel sounds. Soft. normal abdomen, no visible veins, Nontender. No hepatospenomegaly. No masses Ankle Exam: Negative ankle edema Lower extremities: Negative lower extremity edema. Right foot cooler than the left. Right foot numbness in sensitivity to touch noted. Neuro/Mental Status: A&O x4. Coherent. Thoughts/Psych: Normal thought pattern. Appropriate mood and affect. Good judgement and insight Skin Exam: Normal inspection. Normal color. Warm. Dry laboratory and microbiology Laboratory Tests 10/02/24 06:23 Test 10/02/24 06:23 Range/Units Serum Glucose 102 74-106 mg/dL Labs and/or images reviewed: Labs reviewed by me, Image(s) reviewed by me Problem List/Assessment/Plan Problem List/Assessment/Plan # Peripheral artery disease - Bilateral lower extremity arterial duplex shows occlusion of the right distal superficial femoral, popliteal, posterior tibial and 75-99% stenosis of the left popliteal artery. - CT angio abdominal aorta with runoff 1. Right lower extremity: High-grade stenosis or occlusion of the proximal right common iliac, occluded stent in the distal right superficial femoral, two- vessel runoff to the right foot via the anterior tibial and peroneal arteries. 2. Left lower extremity: High-grade stenosis or occlusion of the proximal left common iliac artery, occluded stent in the distal left superficial femoral, patent three-vessel runoff. - Given loading dose of aspirin 325 mg - on heparin drip - aspirin 81 mg q.d. - atorvastatin 80 mg q.d. - vascular surgeon consulted - cardiology on board; Patient is planned to undergo a peripheral angiogram tomorrow # Hypertensive urgency # Renal artery stenosis - CT angio abdominal aorta runoff shows Diffuse advanced atherosclerotic disease, cqrt-bk-qbmaunbn stenosis of the juxtarenal abdominal aorta, no aneurysm. Moderate stenosis of the celiac. Uuqw-ti-lkirnzwd stenosis of the superior mesenteric. 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 Gxmb-qz-awrrqeua stenosis of the left renal artery. - hydralazine 50mg Q8 -minoxidil 5mg daily # Suspected BPH # Bilateral hydronephrosis - CT shows Kgbexmxu-vu-xubdpn right hydronephrosis, mild to moderate left hydronephrosis, distended bladder. suspicion for bladder outlet obstruction - urology consulted -strict input and output Goals of care discussed with the patient for over 29 minutes. Full code Plan discussed with Dr. Pro Plan discussed with: Patient, Other (RN) Date of Service: Oct 02, 2024 Billing Provider: GRIFFIN PRO MD Common Visit Codes: [id number] INP/OBS CARE(HIGH) GWENDOLYN LANDRY RESIDENT Oct 02, 2024 12:54 GRIFFIN PRO MD Oct 02, 2024 21:50
--- NOTE | 2024-10-02 13:02 | ECG ---
[facility] Test Date: 2024-10-01 Test Time: 22:26:16 Pat Name: BOB PIERRE Department: Room: [facility]8T B Gender: M It Solutions Architect: LETY : 1960 Requested By: DEVYN QUINTERO Order Number: [id number] Reading MD: Delbert Anand Measurements Intervals [place] Rate: 75 P: 19 [place]: 141 QRS: 78 QRSD: 93 T: 99 QT: 419 QTc: 468 Interpretive Statements Sinus rhythm Borderline repolarization abnormality Electronically Signed On 10-03-2024 15:35:07 PST by Delbert Anand Please click the below link to view image of tracing.
--- NOTE | 2024-10-02 13:02 | ECG ---
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
--- NOTE | 2024-10-02 15:21 | DVH ---
EXAM: XY CHEST PORTABLE TECHNIQUE: Single frontal chest radiograph CLINICAL HISTORY: Decreased breath sounds bilaterally, cough COMPARISON: None Findings/Impression: Frontal chest radiograph demonstrates no acute osseous or superficial soft tissue abnormalities. The trachea is midline. The cardiac silhouette and mediastinum are within normal limits. Hyperinflation of the lungs with emphysematous changes. No pneumothorax, pleural effusions, or consolidations.
[2024-10-02 15:37] LABS: INR 1.08 (0.9-1.15); Prothrombin Time 11.4 sec (9.3-11.8)
[2024-10-02 15:39] LABS: Partial Thromboplastin Time 71.7 SEC (24.5-34.5)
--- NOTE | 2024-10-02 16:16 | DVHPN2 ---
Progress Note - Dictate Date Seen: Oct 02, 2024 Medical Necessity Reason Pt with a Central, PICC or Fol: No Subjective Patient was seen and evaluated in follow up. Patient is complaining of generalized pain. Patient endorses persisting numbness/decreasing sensation in the right foot. Patient is continued on heparin drip. Patient is planned to undergo a peripheral angiogram tomorrow. vital signs Vital Sign Date Time Temp Pulse Resp B/P (MAP) Pulse Ox O2 Delivery O2 Flow Rate FiO2 10/02/24 10:00 107/71 10/02/24 09:00 97.8 80 20 97 97.8 10/02/24 08:00 Room Air* 0 21 Total Intake and Output 10/01/24 10/01/24 10/02/24 15:00 23:00 07:00 Intake Total 964 ml Output Total 600 ml Balance 364 ml medications Current Medications Medications Dose Ordered Sig/Omar Route Start Time Stop Time Status Last Admin Dose Admin Heparin Sodium/ Dextrose 250 ml @ 10 mls/hr Q24H IV 09/30/24 22:30 Cancel Aspirin 81 mg DAILY PO 10/01/24 10:00 10/02/24 10:45 81 MG Atorvastatin Calcium 80 mg HS PO 10/01/24 22:00 10/01/24 21:09 80 MG Hydralazine HCl 50 mg Q8HR PO 10/01/24 01:30 10/01/24 21:10 50 MG Minoxidil 5 mg DAILY PO 10/01/24 10:00 10/01/24 13:27 5 MG Nicotine 1 patch DAILY TD 10/02/24 10:00 10/02/24 10:45 1 PATCH Heparin Sodium/ Dextrose 250 ml @ 14 mls/hr [id number] IV 10/02/24 02:15 10/02/24 02:15 14 MLS/HR objective GENERAL: Awake, alert, oriented. Patient walks with a limp. LUNGS: Clear. CARDIOVASCULAR: Heart sounds are good. ABDOMEN: Soft. laboratory and microbiology Laboratory Tests 10/02/24 06:23 Test 10/02/24 06:23 Range/Units Serum Glucose 102 74-106 mg/dL Problem List Peripheral artery disease. Hypertensive urgency. Renal artery stenosis. Bilateral hydronephrosis. Assessment/Plan Continued all current supportive medical care. Aspirin, Lipitor. Heparin drip per protocol. Morphine for pain management. Additional plan as per the hospital course. Plan discussed with: Patient DEWAYNE SAMANO MD Oct 02, 2024 14:16
[2024-10-02 21:58] LABS: INR 1.1 (0.9-1.15); Partial Thromboplastin Time 69.4 SEC (24.5-34.5); Prothrombin Time 11.6 sec (9.3-11.8)
[2024-10-03] VITALS (16 sets, daily range): BP systolic 140–204; BP diastolic 62–91; PULSE 56–87; RESP 11–20; TEMP 98–98.8; O2SAT 93–100
[2024-10-03 07:26] LABS: Chloride 106 mmol/L (98-107); Potassium 3.8 mmol/L (3.5-5.1); Sodium 137 mmol/L (136-145)
[2024-10-03 07:27] LABS: Anion Gap 5 (5-15); Carbon Dioxide 26 mmol/L (20-31)
[2024-10-03 07:28] LABS: Calcium 9.2 mg/dL (8.7-10.4)
[2024-10-03 07:32] LABS: BUN/Creatinine Ratio 17.8 (10.0-20.0); Blood Urea Nitrogen 13 mg/dL (9-23)
[2024-10-03 07:34] LABS: Glucose 107 mg/dL (74-106)
[2024-10-03 07:36] LABS: Basophils # (auto) 0 10 ^3/uL (0-0.2); Basophils % (auto) 0.6 % (0.0-2.0); Eosinophils # (auto) 0.2 10 ^3/uL (0-0.8); Eosinophils % (auto) 3.2 % (0.0-7.0); Hematocrit 33.9 % (41.0-53.0); Hemoglobin 11.7 g/dL (13.5-17.5); Lymphocytes # (auto) 1.8 10 ^3/uL (0.4-5.4); Lymphocytes % (auto) 29.4 % (10.0-50.0); Mean Corpuscular Hemoglobin 33.9 pg (28.0-32.0); Mean Corpuscular Hgb Conc. 34.5 g/dL (32.0-36.0); Mean Corpuscular Volume 98.1 fL (80.0-100.0); Monocytes # (auto) 0.7 10 ^3/uL (0-1.3); Monocytes % (auto) 12.4 % (0.0-12.0); Neutrophils # (auto) 3.3 10 ^3/uL (1.6-8.6); Neutrophils % (auto) 54.4 % (37.0-80.0); Platelet Count (auto) 236 10^3/uL (140-450); Red Blood Cells 3.45 10^6/uL (4.5-5.90); Red Cell Distribution Width 14.1 % (11.8-14.3)
[2024-10-03 07:48] LABS: INR 1.1 (0.9-1.15); Prothrombin Time 11.6 sec (9.3-11.8)
[2024-10-03] MEDS: HEPARIN DRIP/D5W 100UNITS/ML 250 ML IV SCH ×2 (08:00→23:06)
[2024-10-03 08:01] LABS: Partial Thromboplastin Time 97.1 SEC (24.5-34.5)
[2024-10-03] MEDS: IOHEXOL 350 MG/ML 100ML IJ ONE (09:17)
[2024-10-03] MEDS: MIDAZOLAM HCL 2MG/2ML 2ml VIAL (1mg/ml) ONE (09:55)
[2024-10-03] MEDS: fentaNYL CITRATE 100 MCG/2 ML VL ONE (09:55)
[2024-10-03] MEDS: LIDOCAINE 2%HCL (LOCAL ANESTH.) INJ 20ML MDV ONE (09:55)
[2024-10-03] MEDS: hydrALAZINE HCL 20 MG/ML VL ONE (10:09)
[2024-10-03] MEDS: SODIUM CHL 0.9% 0 ML ONE (10:14)
[2024-10-03] MEDS: ANGIOMAX 250 MG VIAL IV ONE (10:14)
[2024-10-03] MEDS: HYDROcodone-ACET 5/325MG TAB PO ONE (13:31)
[2024-10-03] MEDS: hydrALAZINE HCL 20 MG/ML VL IV ONE (13:45)
[2024-10-03] MEDS: MORPHINE SULFATE INJ 2 MG/ml SYRG IV ONE (14:31)
[2024-10-03] MEDS: NICOTINE 21MG/24 HR TOPICAL PATCH TD ONE (14:32)
[2024-10-03] MEDS ORDERED: LIDOCAINE 2% JELLY 11ml (GLYDO) UR ONE (14:45)
[2024-10-03] MEDS ORDERED: MORPHINE SULFATE INJ 2 MG/ml SYRG IV PRN (15:30)
--- NOTE | 2024-10-03 16:50 | DVHPNRES ---
Progress Note Date Seen: Oct 03, 2024 Resident Creating Document: BRANDI HOPPER RESIDENT Medical Necessity Reason Pt with a Central, PICC or Fol: No Subjective Review of Systems Patient seen and examined at bedside. Patient mentioning of right-sided foot pain. Patient underwent peripheral angiogram today Objective vital signs Vital Sign Date Time Temp Pulse Resp B/P (MAP) Pulse Ox O2 Delivery O2 Flow Rate FiO2 10/03/24 14:40 169/74 (105) 10/03/24 14:31 75 20 10/03/24 13:55 100 10/03/24 12:06 98.2 98.2 10/03/24 08:00 Room Air* 0 21 Total Intake and Output 10/02/24 10/02/24 10/03/24 14:59 22:59 06:59 Intake Total 580 ml 0 ml Output Total 650 ml Balance -70 ml 0 ml medications Current Medications Medications Dose Ordered Sig/Omar Route Start Time Stop Time Status Last Admin Dose Admin Heparin Sodium/ Dextrose 250 ml @ 10 mls/hr Q24H IV 09/30/24 22:30 Cancel Aspirin 81 mg DAILY PO 10/01/24 10:00 10/02/24 10:45 81 MG Atorvastatin Calcium 80 mg HS PO 10/01/24 22:00 10/02/24 22:00 80 MG Hydralazine HCl 50 mg Q8HR PO 10/01/24 01:30 10/03/24 13:10 50 MG Minoxidil 5 mg DAILY PO 10/01/24 10:00 10/01/24 13:27 5 MG Nicotine 1 patch DAILY TD 10/02/24 10:00 10/02/24 10:45 1 PATCH Heparin Sodium/ Dextrose 250 ml @ 12 mls/hr [id number] IV 10/03/24 08:45 10/03/24 08:00 12 MLS/HR Hydromorphone HCl 0.5 mg Q4HPRN PRN IV 10/03/24 16:00 Examination Examination General Appearance: Alert, Oriented X3, Cooperative, No acute distress HEENT: EOMI Respiratory: Clear to auscultation, Normal air movement Cardiovascular: Regular rate, Normal S1, Normal S2 Abdominal: Normal bowel sounds Skin: No rashes, No breakdown Neuro: Normal speech and tone Extremity: Pale foot on the right side, no pulse bilateral dorsalis pedis and bilateral posterior tibial, confirmed with the ultrasound., no pain on active and passive flexion bilateral foot laboratory and microbiology Laboratory Tests 10/03/24 06:51 Test 10/03/24 06:51 Range/Units Serum Glucose 107 H 74-106 mg/dL Labs and/or images reviewed: Labs reviewed by me, Image(s) reviewed by me Problem List/Assessment/Plan Problem List/Assessment/Plan Assessment/plan # Peripheral artery disease - Bilateral lower extremity arterial duplex shows occlusion of the right distal superficial femoral, popliteal, posterior tibial and 75-99% stenosis of the left popliteal artery. - CT angio abdominal aorta with runoff 1. Right lower extremity: High-grade stenosis or occlusion of the proximal right common iliac, occluded stent in the distal right superficial femoral, two- vessel runoff to the right foot via the anterior tibial and peroneal arteries. 2. Left lower extremity: High-grade stenosis or occlusion of the proximal left common iliac artery, occluded stent in the distal left superficial femoral, patent three-vessel runoff. - Given loading dose of aspirin 325 mg - aspirin 81 mg q.d. - atorvastatin 80 mg q.d. - vascular surgeon consulted - cardiology consulted Status post peripheral angiogram today Surgery consulted for surgical repair -continue heparin drip # Hypertensive urgency # Renal artery stenosis - CT angio abdominal aorta runoff shows Diffuse advanced atherosclerotic disease, [id number]-sc-ctgazdwg stenosis of the juxtarenal abdominal aorta, no aneurysm. Moderate stenosis of the celiac. Qobk-wp-ezkooxei stenosis of the superior mesenteric. 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 Ppxf-cd-tgjrsyfa stenosis of the left renal artery. - hydralazine 50mg Q8 -minoxidil 5mg daily # Suspected BPH # Bilateral hydronephrosis - CT shows Lsbmciec-nw-atqwdi right hydronephrosis, mild to moderate left hydronephrosis, distended bladder. suspicion for bladder outlet obstruction - urology consulted -strict input and output -urology consulted Coude catheter Goals of care discussed with the patient for over 29 minutes. Full code Plan discussed with Dr. Tai Arrington discussed with: Patient, Other My Orders My Orders Orders - BRANDI HOPPER RESIDENT Procedure Category Date Status Time * Records Management Technician CONS 10/03/24 Transmitted Consult * Surgical Consult CONS 10/03/24 Transmitted Hydromorphone Hcl Inj PHA 10/03/24 In Process (Dilaudid Innjecti 16:00 Date of Service: Oct 03, 2024 Billing Provider: NASH VALENZUELA MD Common Visit Codes: 51638-LVY/OBS DISCH DAY >30min Coding Comment Comment Attending Attestation I saw and evaluated the patient. I reviewed the residents note and agree with findings and plan as documented in the residents note except as documented below. Discussed with IR and surgery, patient currently not a good candidate for surgical revasc, will gfollow up with vascular surgeon and dc clinic. BRANDI HOPPER RESIDENT Oct 03, 2024 16:50 NASH VALENZUELA MD Oct 04, 2024 11:24
[2024-10-03] MEDS: LISINOPRIL 5 MG TAB PO ONE (18:23)
[2024-10-03 20:44] LABS: INR 1.09 (0.9-1.15); Partial Thromboplastin Time 48.8 SEC (24.5-34.5); Prothrombin Time 11.5 sec (9.3-11.8)
[2024-10-03] MEDS: HYDROMORPHONE HCL 1 MG/ML INJ IV PRN (21:18)
--- NOTE | 2024-10-03 23:47 | DVHPN2 ---
Progress Note - Dictate Date Seen: Oct 03, 2024 Medical Necessity Reason Pt with a Central, PICC or Fol: No Subjective Patient was seen and evaluated in follow up. Patient underwent peripheral angiogram today and tolerated well. Patient is c/o right foot pain, administered Dilaudid for pain management. Patient receiving heparin drip. vital signs Vital Sign Date Time Temp Pulse Resp B/P (MAP) Pulse Ox O2 Delivery O2 Flow Rate FiO2 10/03/24 21:18 72 18 160/62 10/03/24 21:00 98.4 99 98.4 10/03/24 08:00 Room Air* 0 21 Total Intake and Output 10/02/24 10/02/24 10/03/24 15:00 23:00 07:00 Intake Total 580 ml 0 ml Output Total 650 ml Balance -70 ml 0 ml medications Current Medications Medications Dose Ordered Sig/Omar Route Start Time Stop Time Status Last Admin Dose Admin Heparin Sodium/ Dextrose 250 ml @ 10 mls/hr Q24H IV 09/30/24 22:30 Cancel Aspirin 81 mg DAILY PO 10/01/24 10:00 10/02/24 10:45 81 MG Atorvastatin Calcium 80 mg HS PO 10/01/24 22:00 10/03/24 21:16 80 MG Hydralazine HCl 50 mg Q8HR PO 10/01/24 01:30 10/03/24 21:15 50 MG Minoxidil 5 mg DAILY PO 10/01/24 10:00 10/01/24 13:27 5 MG Nicotine 1 patch DAILY TD 10/02/24 10:00 10/02/24 10:45 1 PATCH Hydromorphone HCl 0.5 mg Q4HPRN PRN IV 10/03/24 16:00 10/03/24 21:18 0.5 MG Lisinopril 5 mg DAILY PO 10/04/24 10:00 Heparin Sodium/ Dextrose 250 ml @ 14 mls/hr [id number] IV 10/03/24 23:15 10/03/24 23:06 14 MLS/HR objective GENERAL: Awake, alert, oriented. Patient walks with a limp. LUNGS: Clear. CARDIOVASCULAR: Heart sounds are good. ABDOMEN: Soft. laboratory and microbiology Laboratory Tests 10/03/24 06:51 Test 10/03/24 06:51 Range/Units Serum Glucose 107 H 74-106 mg/dL Problem List Peripheral artery disease. Hypertensive urgency. Renal artery stenosis. Bilateral hydronephrosis. Assessment/Plan Continued all current supportive medical care. Aspirin, Lipitor. Heparin drip per protocol. Morphine for pain management. Additional plan as per the hospital course. Plan discussed with: Patient DEWAYNE SAMANO MD Oct 03, 2024 23:47
[2024-10-04] VITALS (7 sets, daily range): BP systolic 93–158; BP diastolic 50–68; PULSE 63–76; RESP 18–20; TEMP 98–98.6; O2SAT 97–98
[2024-10-04 05:40] LABS: Basophils # (auto) 0 10 ^3/uL (0-0.2); Basophils % (auto) 0.2 % (0.0-2.0); Eosinophils # (auto) 0.2 10 ^3/uL (0-0.8); Eosinophils % (auto) 1.9 % (0.0-7.0); Hematocrit 31.9 % (41.0-53.0); Hemoglobin 10.7 g/dL (13.5-17.5); Lymphocytes # (auto) 1.5 10 ^3/uL (0.4-5.4); Mean Corpuscular Hgb Conc. 33.7 g/dL (32.0-36.0); Mean Corpuscular Volume 98.2 fL (80.0-100.0); Monocytes # (auto) 1.1 10 ^3/uL (0-1.3); Neutrophils # (auto) 6.8 10 ^3/uL (1.6-8.6); Neutrophils % (auto) 70.9 % (37.0-80.0); Platelet Count (auto) 209 10^3/uL (140-450); Red Blood Cells 3.25 10^6/uL (4.5-5.90); Red Cell Distribution Width 14.1 % (11.8-14.3); White Blood Cell 9.6 10^3/uL (4.4-10.8)
--- NOTE | 2024-10-04 08:41 | DVHINCON2 ---
Date of service: Oct 04, 2024 Family History: FH: cancer G8 MOTHER FH: lung cancer G8 FATHER Hepatitis C 19 CHILD Allergies: Coded Allergies: NO KNOWN ALLERGIES (Unverified , 09/30/24) Current Medications Current Medications Medications (Trade) Dose Ordered Sig/Omar Route PRN Reason Start Time Stop Time Status Last Admin Heparin Sodium/ Dextrose 250 ml @ 12 mls/hr [id number] IV 10/03/24 08:45 10/03/24 23:03 DC 10/03/24 08:00 Morphine Sulfate 2 mg Q4HPRN PRN IV SEVERE PAIN (7-10 PAIN SCALE) 10/03/24 15:30 10/03/24 15:56 DC Hydromorphone HCl (Dilaudid Innjection) 0.5 mg Q4HPRN PRN IV SEVERE PAIN (7-10 PAIN SCALE) 10/03/24 16:00 10/04/24 05:27 Lisinopril (Zestril Tablet) 5 mg DAILY PO 10/04/24 10:00 Heparin Sodium/ Dextrose 250 ml @ 14 mls/hr [id number] IV 10/03/24 23:15 10/03/24 23:06 Vital Signs Vital Signs Date Time Temp Pulse Resp B/P (MAP) Pulse Ox O2 Delivery O2 Flow Rate FiO2 10/04/24 05:57 70 18 140/60 10/04/24 05:00 98.6 98 98.6 10/03/24 20:00 Room Air* 0 21 Labs/Diagnostic Data Labs Test 10/04/24 05:23 10/03/24 19:50 10/03/24 16:10 10/03/24 06:51 Range/Units White Blood Count 9.6 # 4.4-10.8 10^3/uL Red Blood Count 3.25 L 4.5-5.90 10^6/uL Hemoglobin 10.7 L 13.5-17.5 g/dL Hematocrit 31.9 L 41.0-53.0 % Mean Corpuscular Volume 98.2 80.0-100.0 fL Mean Corpuscular Hemoglobin 33.0 H 28.0-32.0 pg Mean Corpuscular Hemoglobin Concent 33.7 32.0-36.0 g/dL Red Cell Distribution Width 14.1 11.8-14.3 % Platelet Count 209 140-450 10^3/uL Mean Platelet Volume 7.2 6.9-10.8 fL Neutrophils (%) (Auto) 70.9 37.0-80.0 % Lymphocytes (%) (Auto) 16.0 10.0-50.0 % Monocytes (%) (Auto) 11.0 0.0-12.0 % Eosinophils (%) (Auto) 1.9 0.0-7.0 % Basophils (%) (Auto) 0.2 0.0-2.0 % Neutrophils # (Auto) 6.8 1.6-8.6 10 ^3/uL Lymphocytes # (Auto) 1.5 0.4-5.4 10 ^3/uL Monocytes # (Auto) 1.1 0-1.3 10 ^3/uL Eosinophils # (Auto) 0.2 0-0.8 10 ^3/uL Basophils # (Auto) 0 0-0.2 10 ^3/uL Nucleated Red Blood Cells 0.0 % Activated Partial Thromboplast Time 71.0 *H 24.5-34.5 SEC Prothrombin Time 11.5 9.3-11.8 sec Prothrombin Time INR 1.09 0.9-1.15 Lactic Acid Level 1.0 0.4-2.0 mmol/L Sodium Level 137 136-145 mmol/L Potassium Level 3.8 3.5-5.1 mmol/L Chloride Level 106 98-107 mmol/L Carbon Dioxide Level 26 20-31 mmol/L Anion Gap 5 5-15 Blood Urea Nitrogen 13 9-23 mg/dL Creatinine 0.73 0.700-1.30 mg/dL Glomerular Filtration Rate Calc 100 >90 mL/min BUN/Creatinine Ratio 17.8 10.0-20.0 Serum Glucose 107 H 74-106 mg/dL Calcium Level 9.2 8.7-10.4 mg/dL Test 10/02/24 06:23 10/01/24 19:06 10/01/24 13:21 09/30/24 23:00 Range/Units Magnesium Level 1.8 1.6-2.6 mg/dL Hepatitis B Surface Antibody Negative Negative Influenza Type A Antigen Negative Negative Influenza Type B Antigen Negative Negative SARS-CoV-2 Antigen (Rapid) Negative NEGATIVE Test 09/30/24 22:00 09/30/24 13:14 Range/Units Hemoglobin A1c 5.4 <5.7 % A1C Total Bilirubin 0.2 0.2-1.0 mg/dL Aspartate Amino Transferase (AST) 23 13-40 U/L Alanine Aminotransferase (ALT) 16 7-40 U/L Alkaline Phosphatase 106 46-116 U/L Total Protein 7.8 5.7-8.2 g/dL Albumin 4.5 3.2-4.8 g/dL Triglycerides Level 151 H < 150 mg/dL Cholesterol Level 151 < 200 mg/dL LDL Cholesterol 83 < 100 mg/dL HDL Cholesterol 53 40-59 mg/dL Erythrocyte Sedimentation Rate 16 0-20 mm/hr Creatine Kinase 60 46-171 U/L C-Reactive Protein High Sensitivity 0.29 <1.0 mg/dL Assessment 64 year old male with bilateral lower extremity arterial insufficiency, continues to smoke (heavily), has pain in left and right lower extremity,worse on right, peripheral percutaneous attempted revascularization not successful, I reviewed the angiograms and I do not believe that vascular surgical reconstruction would be successful due to inflow compromise and poor outflow, he would likely get worse, he is on heparin drip which i think can be discontinued and I would try to treat him with Cilostazol. I strongly admonished him to stop smoking. explained that he is at a high risk of gangrene and amputation if he continues to smoke. Plan discussed with: Patient XOCHITL DESOUZA MD Oct 04, 2024 08:41
[2024-10-04] MEDS: LISINOPRIL 5 MG TAB PO SCH (10:07)
[2024-10-04] MEDS ORDERED: ASPI-325 PO (11:15)
[2024-10-04] MEDS ORDERED: MIN25T PO (11:15)
[2024-10-04] MEDS ORDERED: CILO100T3 PO (11:15)
[2024-10-04] MEDS ORDERED: HYDR25TA87 PO (11:15)
[2024-10-04] MEDS ORDERED: ATOR20TA50 PO (11:15)
[2024-10-04] MEDS ORDERED: NIC21P TD (11:15)
[2024-10-04] MEDS ORDERED: LISI-275 PO (11:15)
--- NOTE | 2024-10-04 13:10 | DVHDSRES ---
Discharge Summary Date of Admission Resident Creating Document: BRANDI HOPPER Sep 30, 2024 at 21:27 Date of Discharge: Oct 04, 2024 Labs/Diagnostic Data: Laboratory Results Test 10/04/24 05:23 10/03/24 19:50 10/03/24 16:10 10/03/24 06:51 White Blood Count 9.6 10^3/uL (4.4-10.8) Red Blood Count 3.25 10^6/uL (4.5-5.90) Hemoglobin 10.7 g/dL (13.5-17.5) Hematocrit 31.9 % (41.0-53.0) Mean Corpuscular Volume 98.2 fL (80.0-100.0) Mean Corpuscular Hemoglobin 33.0 pg (28.0-32.0) Mean Corpuscular Hemoglobin Concent 33.7 g/dL (32.0-36.0) Red Cell Distribution Width 14.1 % (11.8-14.3) Platelet Count 209 10^3/uL (140-450) Mean Platelet Volume 7.2 fL (6.9-10.8) Neutrophils (%) (Auto) 70.9 % (37.0-80.0) Lymphocytes (%) (Auto) 16.0 % (10.0-50.0) Monocytes (%) (Auto) 11.0 % (0.0-12.0) Eosinophils (%) (Auto) 1.9 % (0.0-7.0) Basophils (%) (Auto) 0.2 % (0.0-2.0) Neutrophils # (Auto) 6.8 10 ^3/uL (1.6-8.6) Lymphocytes # (Auto) 1.5 10 ^3/uL (0.4-5.4) Monocytes # (Auto) 1.1 10 ^3/uL (0-1.3) Eosinophils # (Auto) 0.2 10 ^3/uL (0-0.8) Basophils # (Auto) 0 10 ^3/uL (0-0.2) Nucleated Red Blood Cells 0.0 % Activated Partial Thromboplast Time 71.0 SEC (24.5-34.5) Prothrombin Time 11.5 sec (9.3-11.8) Prothrombin Time INR 1.09 (0.9-1.15) Lactic Acid Level 1.0 mmol/L (0.4-2.0) Sodium Level 137 mmol/L (136-145) Potassium Level 3.8 mmol/L (3.5-5.1) Chloride Level 106 mmol/L (98-107) Carbon Dioxide Level 26 mmol/L (20-31) Anion Gap 5 (5-15) Blood Urea Nitrogen 13 mg/dL (9-23) Creatinine 0.73 mg/dL (0.700-1.30) Glomerular Filtration Rate Calc 100 mL/min (>90) BUN/Creatinine Ratio 17.8 (10.0-20.0) Serum Glucose 107 mg/dL (74-106) Calcium Level 9.2 mg/dL (8.7-10.4) Test 10/02/24 06:23 10/01/24 19:06 10/01/24 13:21 09/30/24 23:00 Magnesium Level 1.8 mg/dL (1.6-2.6) Hepatitis B Core Total Antibody Negative (Negative) Hepatitis B Surface Antibody Negative (Negative) Influenza Type A Antigen Negative (Negative) Influenza Type B Antigen Negative (Negative) SARS-CoV-2 Antigen (Rapid) Negative (NEGATIVE) Test 09/30/24 22:00 09/30/24 13:14 Hemoglobin A1c 5.4 % A1C (<5.7) Total Bilirubin 0.2 mg/dL (0.2-1.0) Aspartate Amino Transferase (AST) 23 U/L (13-40) Alanine Aminotransferase (ALT) 16 U/L (7-40) Alkaline Phosphatase 106 U/L (46-116) Total Protein 7.8 g/dL (5.7-8.2) Albumin 4.5 g/dL (3.2-4.8) Triglycerides Level 151 mg/dL (< 150) Cholesterol Level 151 mg/dL (< 200) LDL Cholesterol 83 mg/dL (< 100) HDL Cholesterol 53 mg/dL (40-59) Erythrocyte Sedimentation Rate 16 mm/hr (0-20) Creatine Kinase 60 U/L (46-171) C-Reactive Protein High Sensitivity 0.29 mg/dL (<1.0) Other Laboratory Tests 10/04/24 05:23 10/03/24 06:51 Brief Hx & Hospital Course: 64-year-old male patient with Past Medical History of Hypertension(not on any medication), peripheral artery disease, generalized anxiety disorder and Past Surgical History of Peripheral artery disease s/p PTCA x 2 Stent to the left femoral in 2021, right femoral 2018 and Social History of 50 pack year smoking history and positive alcohol history with 4-5 short can of beer every day, presented with complaints of right foot numbness for the past 3 day. Bilateral lower extremity arterial duplex shows occlusion of the right distal superficial femoral, popliteal, posterior tibial and 75-99% stenosis of the left popliteal artery. He was Given loading dose of aspirin 325 mg and was started on heparin drip. Later he was started on aspirin 81 mg q.d, atorvastatin 80 mg q.d. Cardiology was consulted. pt was started on antihypertensive meds for hypertensive urgency including hydralazine, minoxidil and later lisinopril. CT abd angio with Aorta run off revealed Vascular: 1. Diffuse advanced atherosclerotic disease. Arip-mb-tpsjqoba stenosis of the juxtarenal abdominal aorta. No aneurysm. Moderate stenosis of the celiac. Vaka-pa-dirlzvmo stenosis of the superior mesenteric. 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 Vxih-ds-vsvdruim stenosis of the left renal artery. 2. Vascular surgery or interventional radiology evaluation is recommended. Right Lower Extremity: 1. 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 2. Occluded stent in the distal right superficial femoral artery. 3. 2-vessel runoff to the right foot via the anterior tibial and peroneal arteries. Left Lower Extremity: 1. High-grade stenosis or occlusion of the proximal left common iliac artery. 2. Occluded stent in the distal left superficial femoral artery. 3. Patent 3 vessel runoff Abdomen/Pelvis: 1. Moderate to severe right hydronephrosis. Gjhx-dr-hpypijdg left hydronephrosis. Distended bladder. Suspect bladder outlet obstruction. Carotid doppler reveals IMPRESSION: Estimated 50-69% stenosis in the right internal carotid artery. Estimated greater than 70% stenosis in the left internal carotid artery. Antegrade flow in the bilateral vertebral arteries. pt underwent lower extremity peripheral angiogram by intervention radiologist, attempted revascularization was not successful, recommended vascular surgeon consult. Dr Tubbs was consulted. Dr tubbs reviewed the angiograms and did not believe that vascular surgical reconstruction would be successful due to inflow compromise and poor outflow, patient would likely get worse. As per surgeon recommendation, heparin drip was discontinued and patient was prescribed Cilostazol. pt was explained about his condition, which he understood. Urology was consulted, suggested Coude catheter and continue on discharge, and follow up with urology. Patient refused the Coude catheter. Pt was counselled on smoking cessation and was started on nicotine patch. At the time of discharge, patient had stable vitals, no new complaints. Discharge plan was discussed with the patient and was advised to follow up with DC clinic within 1 week for Repeat BMP in 1 week and vascular surgeon/urologist within 2-3 weeks. pt was discharged on aspirin, atorvastatin, cilostazol, hydralazine, lisinopril, minoxidil, nicotine patch and tamsulosin. Condition at Discharge: Stable Final Diagnosis/Problems List Peripheral artery disease. Hypertensive urgency. Renal artery stenosis. Bilateral hydronephrosis. BPH Discharge Disposition: Home Discharge Instruct/Medications Diet: Cardiac 2g Na,low cholest Activity: No Restrictions, As Tolerated Follow Up/Referral: f/u with DC clinic within 1 week f/u with Vascular surgeon within 1-2 weeks f/u with Urology within 1-2 weeks Medications: script sent to pharmacy Discharge Statement: "Patient was advised to return to the ER or call 911 if any headaches, dizziness, shortness of breath, chest pain, abdominal pain, bleeding, fevers, or worsening of medical condition. Patient was counseled about treatment plan, medications, possible side effects, patientverbalized understanding. All questions were answered to the best of my ability. This discharge took greater then 30 minutes in planning, reviewing documentation, counseling the patient, and discussing with other team members." ASSESSMENT ASSESSMENT Assessment Peripheral artery disease. Hypertensive urgency. Renal artery stenosis. Bilateral hydronephrosis. Date of Service: Oct 04, 2024 Billing Provider: NASH VALENZUELA MD Common Visit Codes: 32408-XTA/OBS DISCH DAY >30min BRANDI HOPPER Oct 04, 2024 13:10 NASH VALENZUELA MD Oct 06, 2024 08:59
[2024-10-04] MEDS ORDERED: TAMS0.4C39 PO (13:22)
--- NOTE | 2024-10-04 23:56 | DVHPN2 ---
Progress Note - Dictate Date Seen: Oct 04, 2024 Medical Necessity Reason Pt with a Central, PICC or Fol: No Subjective Patient was seen and evaluated in follow up. Patient has no new complaints at this time. Patient denies any cardiac symptoms. Patient is cardiac stable for discharge. vital signs Vital Sign Date Time Temp Pulse Resp B/P (MAP) Pulse Ox O2 Delivery O2 Flow Rate FiO2 10/04/24 13:00 73 20 93/61 10/04/24 12:45 98.1 97 98.1 10/04/24 08:00 Room Air* 0 21 Total Intake and Output 10/03/24 10/03/24 10/04/24 15:00 23:00 07:00 Intake Total 0 ml 250 ml 1000 ml Output Total 800 ml Balance 0 ml 250 ml 200 ml medications Current Medications Medications Dose Ordered Sig/Omar Route Start Time Stop Time Status Last Admin Dose Admin Heparin Sodium/ Dextrose 250 ml @ 10 mls/hr Q24H IV 09/30/24 22:30 Cancel objective GENERAL: Awake, alert, oriented. Patient walks with a limp. LUNGS: Clear. CARDIOVASCULAR: Heart sounds are good. ABDOMEN: Soft. laboratory and microbiology Laboratory Tests 10/04/24 05:23 10/03/24 06:51 Test 10/03/24 06:51 Range/Units Serum Glucose 107 H 74-106 mg/dL Problem List Peripheral artery disease. Hypertensive urgency. Renal artery stenosis. Bilateral hydronephrosis. Assessment/Plan Continued all current supportive medical care. Aspirin, Lipitor. Heparin drip per protocol. Morphine for pain management. Additional plan as per the hospital course. Plan discussed with: Patient DEWAYNE SAMANO MD Oct 04, 2024 23:56
== END 2024-10-04 13:11 | disposition home or self-care (01) | DRG 253 ==
LOC: ER 11:58 → TELE 21:27 → TELE-WESTW 10-01 14:28
PROVIDERS: ADMIT Student in an Organized Health Care Education/Training Program; ATTEND Student in an Organized Health Care Education/Training Program
PROC: 047K3ZZ Dilation of Right Femoral Artery, Percutaneous Approach (ICD-10-PCS; principal; 2024-10-03)
PROC: B41G1ZZ Fluoroscopy of Left Lower Extremity Arteries using Low Osmolar Contrast (ICD-10-PCS; 2024-10-03)
DX: T82.858A Stenosis of other vascular prosthetic devices, implants and grafts, initial encounter (principal); N13.30 Unspecified hydronephrosis; I73.9 Peripheral vascular disease, unspecified; I70.1 Atherosclerosis of renal artery; I16.0 Hypertensive urgency; F41.1 Generalized anxiety disorder; Z20.822 Contact with and (suspected) exposure to COVID-19; Y83.8 Other surgical procedures as the cause of abnormal reaction of the patient, or of later complication, without mention of misadventure at the time of the procedure; N40.0 Benign prostatic hyperplasia without lower urinary tract symptoms; F17.200 Nicotine dependence, unspecified, uncomplicated; Z80.1 Family history of malignant neoplasm of trachea, bronchus and lung; Y92.89 Other specified places as the place of occurrence of the external cause
CPT/HCPCS: 36415; 37224; 70450; 71045; 75635; 75710; 80048; 80053; 80061; 82550; 83036; 83605; 83735; 85025; 85610; 85652; 85730; 86141; 86706; 87426; 87804; 93005; 93886; 93925; 93970; G0378; J2250

== ENCOUNTER 2025-01-28 12:30 | Inpatient (IN) | payer OTHER, MEDICARE, MEDICAID ==
[~2025-01-28] VITALS: Ht 177.8 cm; Wt 56.0 kg
[2025-01-28] VITALS (7 sets, daily range): BP systolic 113–138; BP diastolic 43–62; PULSE 71–91; RESP 11–25; TEMP 97.8–98.7; O2SAT 94–95
[~2025-01-28 12:30] MED LIST: ASPI-325 PO; ATOR20TA50 PO; CILO100T3 PO; HYDR25TA87 PO; LISI-275 PO; MIN25T PO; NIC21P TD; TAMS0.4C39 PO
--- NOTE | 2025-01-28 13:04 | ED.PDOC ---
History of Present Illness HPI Comments 64-year-old male came to the ER stating that he has been feeling weak ever since he left his rehab center three days ago. He had his blood drawn at a rehab center for which has showed hemoglobin of 5.9. Patient was instructed to go to the nearest ER for blood transfusion. He does have a history of hypertension. He was in the rehab center because of surgery of the right foot. He was discharged from the rehab center three days ago. The bloods were drawn prior to his discharge. He continues to smoke cigarettes and drink. Denies any other symptoms. Time Seen by MD: 12:57 Reviewed Notes: Nurses Notes, Medications, Allergies Allergies: Coded Allergies: NO KNOWN ALLERGIES (Unverified , 09/30/24) Home Meds Active Scripts Tamsulosin Hcl (Tamsulosin Hcl) 0.4 Mg Cap, 2 CAP PO DAILY, #60 CAP 5 Refills Prov:[facility] 10/04/24 Cilostazol (Cilostazol) 100 Mg Tab, 1 TAB PO BID, #60 TAB 5 Refills Prov:[facility] 10/04/24 Nicotine (Nicoderm 21MG/24HR) 1 Patch Ph, 1 PATCH TD DAILY for 30 Days, #30 PATCH Prov:[facility] 10/04/24 Minoxidil (Loniten) 2.5 Mg Tb, 5 MG PO DAILY for 30 Days, #60 TAB Prov:[facility] 10/04/24 Lisinopril (Lisinopril) 5 Mg Tab, 5 MG PO DAILY for 30 Days, #30 TAB Prov:[facility] 10/04/24 Hydralazine HCl (Hydralazine HCl) 25 Mg Tab, 50 MG PO Q8HR for 30 Days, #180 TAB Prov:[facility] 10/04/24 Atorvastatin Calcium (ATORVASTATIN CALCIUM) 20 Mg Tab, 80 MG PO HS for 30 Days, #120 TAB Prov:[facility] 10/04/24 Aspirin (Aspirin Low Dose) 81 Mg Tab, 81 MG PO DAILY for 30 Days, #30 TAB Prov:[facility] 10/04/24 Information Source: Patient Mode of Arrival: Wheelchair Severity: Moderate Timing: Days Duration: Since onset Physical Exam General Appearance: Moderate Distress HEENT: Normal ENT Inspection, Pharynx Normal, TMs Normal Neck: Full Range of Motion, Non-Tender, Normal, Normal Inspection Respiratory: Chest Non-Tender, Lungs Clear, No Accessory Muscle Use, No Respiratory Distress, Normal Breath Sounds Cardiovascular: No Edema, No JVD, No Murmur, No Gallop, Normal Peripheral Pulses, Regular Rate/Rhythm Breast Exam: Deferred Gastrointestinal: No Organomegaly, Non Tender, No Pulsatile Mass, Normal Bowel Sounds, Soft Genitalia: Deferred Pelvic: Deferred Rectal: Deferred Extremities: No calf tenderness, Normal capillary refill, Pedal edema, Swelling (Left lower extremity) Musculoskeletal : Apperance: Normal Neurologic: Alert, director of video analytics II-XII nml as Tested, No Motor Deficits, Normal Affect, Normal Mood, No Sensory Deficits Cerebellar Function: NOT DONE Reflexes: NOT DONE Skin: Dry, Pallor, Warm, Wounds (Right foot) Peripheral Pulses: 3+ Radial (R), 3+ Radial (L) Lymphatic: No Adenopathy Was a procedure done? Was a procedure done?: No EKG EKG : Pulse Rate (adult): 105 Cardiac Rhythm: NSR Differential Dx Considerations may include: Cellulitis Electrolyte imbalance X-Ray, Labs, Meds, VS Vital Signs Date Time Temp Pulse Resp B/P (MAP) Pulse Ox O2 Delivery O2 Flow Rate FiO2 01/28/25 16:00 88 01/28/25 14:45 91 01/28/25 13:12 105 01/28/25 13:06 105 01/28/25 13:00 98.0 103 16 111/59 (76) 95 98.0 Lab Test 01/28/25 14:17 01/28/25 13:15 Range/Units Lactic Acid Level 4.3 *H 0.4-2.0 mmol/L White Blood Count 17.4 H 4.4-10.8 10^3/uL Red Blood Count 2.19 L 4.5-5.90 10^6/uL Hemoglobin 5.4 *L 13.5-17.5 g/dL Hematocrit 17.7 L 41.0-53.0 % Mean Corpuscular Volume 81.1 80.0-100.0 fL Mean Corpuscular Hemoglobin 24.9 L 28.0-32.0 pg Mean Corpuscular Hemoglobin Concent 30.7 L 32.0-36.0 g/dL Red Cell Distribution Width 18.4 H 11.8-14.3 % Platelet Count 691 H 140-450 10^3/uL Mean Platelet Volume 7.6 6.9-10.8 fL Neutrophils (%) (Auto) 86.0 H 37.0-80.0 % Lymphocytes (%) (Auto) 7.2 L 10.0-50.0 % Monocytes (%) (Auto) 6.3 0.0-12.0 % Eosinophils (%) (Auto) 0.1 0.0-7.0 % Basophils (%) (Auto) 0.4 0.0-2.0 % Neutrophils # (Auto) 15.0 H 1.6-8.6 10 ^3/uL Lymphocytes # (Auto) 1.3 0.4-5.4 10 ^3/uL Monocytes # (Auto) 1.1 0-1.3 10 ^3/uL Eosinophils # (Auto) 0 0-0.8 10 ^3/uL Basophils # (Auto) 0.1 0-0.2 10 ^3/uL Nucleated Red Blood Cells 0.6 % Platelet Estimate Increased Polychromasia Slight Hypochromasia (manual) Slight Anisocytosis (manual) Slight Sodium Level 136 136-145 mmol/L Potassium Level 3.9 3.5-5.1 mmol/L Chloride Level 105 98-107 mmol/L Carbon Dioxide Level 22 20-31 mmol/L Anion Gap 9 5-15 Blood Urea Nitrogen 21 9-23 mg/dL Creatinine 0.73 0.700-1.30 mg/dL Glomerular Filtration Rate Calc 100 >90 mL/min BUN/Creatinine Ratio 28.8 H 10.0-20.0 Serum Glucose 131 H 74-106 mg/dL Calcium Level 9.0 8.7-10.4 mg/dL Troponin I High Sensitivity 6 </=54 ng/L Current Medications Medications (Trade) Dose Ordered Sig/Omar Route Start Time Stop Time Status Last Admin Ceftriaxone Sodium 50 ml @ 100 mls/hr ONCE ONCE IV 01/28/25 14:15 01/28/25 14:44 DC 01/28/25 14:36 Clindamycin Phosphate 50 ml @ 50 mls/hr ONCE ONCE IV 01/28/25 14:15 01/28/25 15:14 DC 01/28/25 15:29 Sodium Chloride 1,000 ml @ 1,000 mls/hr Q1H ONCE IV 01/28/25 14:15 01/28/25 15:14 DC 01/28/25 14:34 Sodium Chloride 1,000 ml @ 1,000 mls/hr Q1H ONCE IV 01/28/25 16:00 01/28/25 16:59 DC 01/28/25 16:15 Sodium Chloride 1,000 ml @ 150 mls/hr Q6H40M ONCE IV 01/28/25 16:00 01/28/25 22:39 01/28/25 16:50 Patient alert. Complaining of being weak. He is pale. Answering questions. Recently discharged from rehab center after the surgery on his right lower extremity. He had his blood drawn in the rehab center which showed anemia. He does have wrapped surgical wound on his right lower extremity. Cardiac marker within normal limits. Possible sepsis. Establish intravenous access. Was given fluids. Was given Rocephin. Was given clindamycin. Lactic acid elevated. Hemoglobin is low. Blood transfusion. Reviewed his history. Explained to the patient. Continue monitoring. EKG reviewed does show chronic changes. Time of 1ST Reevaluation: 13:09 Reevaluation 1ST: Unchanged Patient Education/Counseling: Diagnosis, Treatment, Prognosis Family Education/Counseling: No Family Present Departure 1 Departure Time of Disposition: 13:11 Impression: Primary Impression: Sepsis Qualified Codes: A41.9 - Sepsis, unspecified organism Additional Impression: Symptomatic anemia Disposition: ADMITTED INPATIENT Admit to: Med Surg Condition: Guarded Critical Care Note Critical Care Time?: Yes (90 min-critical care time only) Critical care comment: Sepsis protocol Stability Stability form required: No Heart Score Heart Score: Heart Score Response (Comments) Value History Slightly Suspicious 0 EKG Normal 0 Age >65 2 Risk Factors >3 or Hx ASHD 2 Troponin Normal limit 0 Total 4 BHAVIN JONES MD Jan 28, 2025 13:04
--- NOTE | 2025-01-28 13:10 | ECG ---
[facility] Test Date: 2025-01-28 Test Time: 13:06:05 Pat Name: BOB PIERRE Department: ER Room: 0208T Gender: M Emergency Medical Service Coordinator: HERMAN : 1960 Requested By: BHAVIN JONES Order Number: [id number] Reading MD: Tevin Ambriz Measurements Intervals [place] Rate: 105 P: 0 IA: 0 QRS: 78 QRSD: 99 T: 88 QT: 437 QTc: 578 Interpretive Statements AV dissociation Prolonged QT interval Electronically Signed On 02-01-2025 12:47:55 PDT by Teivn Ambriz Please click the below link to view image of tracing.
[2025-01-28 13:33] LABS: Basophils # (auto) 0.1 10 ^3/uL (0-0.2); Eosinophils # (auto) 0 10 ^3/uL (0-0.8); Hematocrit 17.7 % (41.0-53.0); Monocytes # (auto) 1.1 10 ^3/uL (0-1.3); Red Blood Cells 2.19 10^6/uL (4.5-5.90); Red Cell Distribution Width 18.4 % (11.8-14.3); White Blood Cell 17.4 10^3/uL (4.4-10.8)
[2025-01-28 13:34] LABS: Basophils % (auto) 0.4 % (0.0-2.0); Eosinophils % (auto) 0.1 % (0.0-7.0); Lymphocytes # (auto) 1.3 10 ^3/uL (0.4-5.4); Lymphocytes % (auto) 7.2 % (10.0-50.0); Mean Corpuscular Hemoglobin 24.9 pg (28.0-32.0); Mean Corpuscular Hgb Conc. 30.7 g/dL (32.0-36.0); Mean Corpuscular Volume 81.1 fL (80.0-100.0); Monocytes % (auto) 6.3 % (0.0-12.0); Nucleated Red Blood Cells % 0.6 %; Platelet Count (auto) 691 10^3/uL (140-450)
[2025-01-28 13:36] LABS: Chloride 105 mmol/L (98-107); Potassium 3.9 mmol/L (3.5-5.1); Sodium 136 mmol/L (136-145)
[2025-01-28 13:37] LABS: Anion Gap 9 (5-15); Carbon Dioxide 22 mmol/L (20-31)
[2025-01-28 13:39] LABS: Hemoglobin 5.4 g/dL (13.5-17.5)
[2025-01-28 13:42] LABS: BUN/Creatinine Ratio 28.8 (10.0-20.0); Blood Urea Nitrogen 21 mg/dL (9-23)
[2025-01-28 13:43] LABS: Glucose 131 mg/dL (74-106)
[2025-01-28 13:52] LABS: Anisocytosis Slight; Hypochromia Slight; Platelet Estimate Increased; Polychromasia Slight
--- NOTE | 2025-01-28 14:03 | DVH ---
CHEST RADIOGRAPH Indication: sob Technique: Single frontal view of the chest was obtained Comparison: XY CHEST PORTABLE on DOS: 10/02/24 FINDINGS: The cardiac silhouette is unremarkable. The lungs demonstrate no pulmonary airspace consolidation. Th e pulmonary vasculature is unremarkable. There is no pleural effusion.. There is no pneumothorax. Ao rtic atherosclerotic disease. IMPRESSION: 1. No pulmonary airspace consolidation. 2. 3 mm radiopaque foreign density projecting over the left chest, correlate to exclude foreign body. << >>
[2025-01-28] MEDS: SODIUM CHLORIDE 0.9% 1,000 ML IV ONE ×4 (14:15→16:50)
[2025-01-28] MEDS: cefTRIAXone 1GM/50ML D5W 50 ML IV ONE (14:36)
[2025-01-28 15:00] LABS: Lactic Acid w/Reflex 4.3 mmol/L (0.4-2.0)
[2025-01-28] MEDS: CLINDAMYCIN 300MG IV 50 ML IV ONE (15:29)
[2025-01-28] MEDS ORDERED: NITROGLYCERIN 0.4 MG SL TAB SL PRN (19:00)
[2025-01-28] MEDS: SODIUM CHLORIDE 0.9% 1,000 ML IV SCH (19:00)
--- NOTE | 2025-01-28 19:15 | DVHHP2 ---
History of Present Illness Reason for Visit: Sepsis due to infected right foot History of Present Illness This is a 64-year-old cachectic male with history of hypertension, and recent bilateral lower extremity stent placement presents to ED with chief complaint of generalized weakness since he left rehab center three days ago. He had his blood drawn at the rehab center for which has showed hemoglobin of 5.9. The patient was instructed to go to the nearest ER for blood transfusion. He denied bloody stool and hematemesis. He denies taking anticoagulant. The patient reports heavy alcohol abuse quit four months ago. The patient hemoglobin found to be 5.4 with lactic acid 4.3. Upon evaluating patient in ER bed 12, notable foul odor noted to his right foot with dressing in place. The dressing was saturated removed and multiple open sores with pus were present. The patient states that his right leg wound has been dressed two days ago and currently under treatment without being prescribed any antibiotics. The patient is currently receiving packed red blood cell transfusion. The patient is concerned about his symptoms and would like to be further evaluated and treated. The patient will be admitted under hospitalist care to the telemetry unit for continuous monitoring. The patient denies fever, chills, headache, dizziness, palpitation, chest pain, nausea, vomiting, abdominal pain, diarrhea, constipation and other associated symptoms. The plan has been discussed with the patient in which all questions concerns have been addressed. Cardiovascular: HTN Past Surgical History Recent bilateral of free lower extremity stent placement Family History: None Smoke: No ALCOHOL: heavy (Quit four months ago) Drugs: None Lives: with Family Domestic Violence: Neg Review of Systems Constitutional: Yes: Weakness Skin: Other (Right foot multiple open sores with pus and drainage along with foul odor) Allergies: Coded Allergies: NO KNOWN ALLERGIES (Unverified , 09/30/24) Medications Current Medications Medications Dose Ordered Sig/Omar Route Start Time Stop Time Status Last Admin Dose Admin Clindamycin Phosphate 50 ml @ 50 mls/hr Q8HR IV 01/28/25 22:00 UNV Ceftriaxone Sodium 50 ml @ 100 mls/hr DAILY@09 IV 01/29/25 09:00 UNV Sodium Chloride 1,000 ml @ 100 mls/hr Q10H IV 01/28/25 19:00 UNV Acetaminophen/ Hydrocodone Bitart 1 tab Q4HP PRN PO 01/28/25 19:00 UNV Enoxaparin Sodium 40 mg DAILY SC 01/29/25 10:00 UNV Zinc Sulfate 220 mg DAILY PO 01/29/25 10:00 UNV Ascorbic Acid 500 mg BID PO 01/28/25 22:00 UNV Multivitamins 1 tab DAILY PO 01/29/25 10:00 UNV Acetaminophen 650 mg Q6HP PRN PO 01/28/25 19:00 UNV Nitroglycerin 0.4 mg Q5MINP PRN SL 01/28/25 19:00 UNV Morphine Sulfate 2 mg Q30M PRN IV 01/28/25 19:00 UNV Exam Vital Signs Vital Signs Date Time Temp Pulse Resp B/P (MAP) Pulse Ox O2 Delivery O2 Flow Rate FiO2 01/28/25 18:40 90 22 117/45 (69) 94 01/28/25 18:22 98.1 98.1 General Appearance: Alert, Oriented X3, Cooperative, mild distress HEENT: Atraumatic, PERRLA, Mucous membr. moist/pink Respiratory: Clear to auscultation, Normal air movement Cardiovascular: Normal S1, Normal S2, No murmurs Abdominal: Normal bowel sounds, Soft, No tenderness, No hepatospenomegaly, No masses Neuro: Normal speech, Strength at 5/5 X4 ext Psych/Mental Status: Mental status NL Labs/Xrays Labs Test 01/28/25 17:45 01/28/25 13:15 Range/Units Lactic Acid Level 3.3 *H 0.4-2.0 mmol/L White Blood Count 17.4 H 4.4-10.8 10^3/uL Red Blood Count 2.19 L 4.5-5.90 10^6/uL Hemoglobin 5.4 *L 13.5-17.5 g/dL Hematocrit 17.7 L 41.0-53.0 % Mean Corpuscular Volume 81.1 80.0-100.0 fL Mean Corpuscular Hemoglobin 24.9 L 28.0-32.0 pg Mean Corpuscular Hemoglobin Concent 30.7 L 32.0-36.0 g/dL Red Cell Distribution Width 18.4 H 11.8-14.3 % Platelet Count 691 H 140-450 10^3/uL Mean Platelet Volume 7.6 6.9-10.8 fL Neutrophils (%) (Auto) 86.0 H 37.0-80.0 % Lymphocytes (%) (Auto) 7.2 L 10.0-50.0 % Monocytes (%) (Auto) 6.3 0.0-12.0 % Eosinophils (%) (Auto) 0.1 0.0-7.0 % Basophils (%) (Auto) 0.4 0.0-2.0 % Neutrophils # (Auto) 15.0 H 1.6-8.6 10 ^3/uL Lymphocytes # (Auto) 1.3 0.4-5.4 10 ^3/uL Monocytes # (Auto) 1.1 0-1.3 10 ^3/uL Eosinophils # (Auto) 0 0-0.8 10 ^3/uL Basophils # (Auto) 0.1 0-0.2 10 ^3/uL Nucleated Red Blood Cells 0.6 % Platelet Estimate Increased Polychromasia Slight Hypochromasia (manual) Slight Anisocytosis (manual) Slight Sodium Level 136 136-145 mmol/L Potassium Level 3.9 3.5-5.1 mmol/L Chloride Level 105 98-107 mmol/L Carbon Dioxide Level 22 20-31 mmol/L Anion Gap 9 5-15 Blood Urea Nitrogen 21 9-23 mg/dL Creatinine 0.73 0.700-1.30 mg/dL Glomerular Filtration Rate Calc 100 >90 mL/min BUN/Creatinine Ratio 28.8 H 10.0-20.0 Serum Glucose 131 H 74-106 mg/dL Calcium Level 9.0 8.7-10.4 mg/dL Troponin I High Sensitivity 6 </=54 ng/L ORDERING PHYSICIAN: BHAVIN JONES MD PROCEDURE(s): CXRP - CHEST PORTABLE REASON: sob ORDER NUMBER(s): [id number], ACCESSION NUMBER(s): [id number] CHEST RADIOGRAPH Indication: sob Technique: Single frontal view of the chest was obtained Comparison: XY CHEST PORTABLE on DOS: 10/02/24 FINDINGS: The cardiac silhouette is unremarkable. The lungs demonstrate no pulmonary airspace consolidation. The pulmonary vasculature is unremarkable. There is no pleural effusion.. There is no pneumothorax. Aortic atherosclerotic disease. IMPRESSION: 1. No pulmonary airspace consolidation. 2. 3 mm radiopaque foreign density projecting over the left chest, correlate to exclude foreign body. << >> ATED BY: FANG MENDOZA MD DICTATED DATE/TIME: 01/28/251400 SIGNED BY: FANG MENDOZA MD SIGNED DATE/TIME: 01/28/251400 CC: Assessment/Plan Assessment/Plan Sepsis due to right foot wound---patient presents to ED with hemoglobin 5.9 which was noted from transfusion at rehab center Patient denies active bleeding Patient denies anticoagulants History of alcohol abuse four months ago last drink Right foot wound draining pus with foul odor Admit to telemetry unit for continuous monitoring Reviewed CBC hemoglobin 5.4/leukocytosis Lactic acid 4.3 Reviewed BMP Chest x-ray is normal IV hydration IV antibiotic clindamycin and ceftriaxone now and daily Repeat lactic acid q.6 hours Wound consult for right foot wound Wound GS pending Anemia Type and screen Transfuse 2 units packed red blood cell Keep HGB greater than 7.0 Continue to monitor lab q.6 hours RBC morphology pending Iron panel pending Consult GI specialist for evaluation and recommendation Hypertension Continue prescribed antihypertensive agent Continue to monitor BP Hyperlipidemia Continue atorvastatin as prescribed Social consult: Please assist with possible home care needs patient may need wound care at home Reconcile home meds DVT prophylaxis-no anticoagulant PUD prophylaxis Labs in a.m. Discussed plan of care with the patient in which all questions concerns have been addressed Plan discussed with: Patient My Orders Orders - MARY KATE DEWITT RADIOLOGY PHYSICIAN ASSISTANT Procedure Category Date Status Time * Wound Consult CONS 01/28/25 Transmitted Wound Culture W/ Gs RON 01/28/25 Logged 18:54 Clindamycin 600mg Iv PHA 01/28/25 Logged (Cleocin Iv) 22:00 Ceftriaxone 1gm/50ml PHA 01/29/25 Logged D5w (Rocephin) 09:00 Admit ADMIT 01/28/25 Transmitted 18:54 2 Gm Sodium Diet DIET 01/29/25 Transmitted Breakfast Sodium Chloride 0.9% PHA 01/28/25 Logged 19:00 Hydrocodone-Acet PHA 01/28/25 Logged 5/325mg Tab ([place] 19:00 Enoxaparin Sodium PHA 01/29/25 Logged (Lovenox) 10:00 Zinc Sulfate PHA 01/29/25 Logged 10:00 Ascorbic Acid Tablet PHA 01/28/25 Logged (Vitamin C Tablet) 22:00 Multiple Vitamin [facility] 01/29/25 Logged Tablet (Mvi Tab) 10:00 Complete Blood Count LAB 01/29/25 Verified 04:00 Comprehensive LAB 01/29/25 Verified Metabolic Panel 04:00 Condition: Fair [facility] 01/28/25 In Process 18:54 Acetaminophen Tablet [facility] 01/28/25 Logged (Tylenol Tablet) 19:00 Bedrest With Bathroom [facility] 01/28/25 In Process Privileg 18:54 Nitroglycerin [facility] 01/28/25 Logged Sublingual (Ntrostat 19:00 Morphine Sulfate [facility] 01/28/25 Logged Injection 19:00 Stat Ekg For Chest [facility] 01/28/25 In Process Pain 18:54 Notify Of Changes [facility] 01/28/25 In Process From Base 18:54 Creping Machine Operator Helper For [facility] 01/28/25 In Process 24 Hours 18:54 Emergency Dysrhythmia [facility] 01/28/25 In Process Protocol 18:54 Rhythm Strips Once [facility] 01/28/25 In Process Every Shift 18:54 Oxygen By Nasal RT 01/28/25 Transmitted Cannula 18:54 Lactic Acid W/ Reflex LAB 01/29/25 Verified Order 00:00 Lactic Acid W/ Reflex LAB 01/29/25 Verified Order 06:00 Hemoglobin & LAB 01/29/25 Verified Hematocrit 00:00 Hemoglobin & LAB 01/29/25 Verified Hematocrit 06:00 Hemoglobin & LAB 01/29/25 Verified Hematocrit 12:00 Hemoglobin & LAB 01/29/25 Verified Hematocrit 18:00 Date of Service: Jan 28, 2025 Billing Provider: MARY KATE DEWITT Common Visit Codes: [id number] INP/OBS CARE (HIGH) MARY KATE DEWITT RADIOLOGY PHYSICIAN ASSISTANT Jan 28, 2025 19:15
[2025-01-28] MEDS: CLINDAMYCIN 600MG IV 50 ML IV SCH (19:52)
[2025-01-28] MEDS: ASCORBIC ACID 500 MG TAB PO SCH (19:52)
[2025-01-28] MEDS: PANTOPRAZOLE 40 MG/10 ML VIAL INJ IV ONE (19:52)
[2025-01-28 20:07] LABS: % Iron Saturation 5.2 % (20-55)
[2025-01-28] MEDS: hydrALAZINE HCL 25 MG TAB PO SCH (22:00)
[2025-01-28] MEDS: ATORVASTATIN 20 MG TAB PO SCH (23:41)
[2025-01-28] MEDS: CILOSTAZOL 100 MG TAB PO SCH (23:44)
[2025-01-29 00:06] VITALS: BP 131/44; PULSE 73; RESP 18; TEMP 98.6
[2025-01-29 01:01] LABS: Hematocrit 22.7 % (41.0-53.0); Hemoglobin 7.1 g/dL (13.5-17.5)
[2025-01-29 07:07] LABS: Eosinophils # (auto) 0 10 ^3/uL (0-0.8); Neutrophils # (auto) 11.5 10 ^3/uL (1.6-8.6); Platelet Count (auto) 503 10^3/uL (140-450); Red Blood Cells 2.79 10^6/uL (4.5-5.90); White Blood Cell 14.1 10^3/uL (4.4-10.8)
[2025-01-29 07:09] LABS: Basophils # (auto) 0.1 10 ^3/uL (0-0.2); Eosinophils % (auto) 0.2 % (0.0-7.0); Hematocrit 22.4 % (41.0-53.0); Hemoglobin 7.2 g/dL (13.5-17.5); Lymphocytes # (auto) 1.4 10 ^3/uL (0.4-5.4); Lymphocytes % (auto) 9.6 % (10.0-50.0); Mean Corpuscular Hemoglobin 25.7 pg (28.0-32.0); Mean Corpuscular Volume 80.3 fL (80.0-100.0); Monocytes # (auto) 1.1 10 ^3/uL (0-1.3); Monocytes % (auto) 7.5 % (0.0-12.0); Neutrophils % (auto) 81.7 % (37.0-80.0); Nucleated Red Blood Cells % 0.5 %; Red Cell Distribution Width 17.9 % (11.8-14.3)
[2025-01-29 07:26] LABS: Alanine Aminotransferase 12 U/L (7-40); Albumin 3.4 g/dL (3.2-4.8); Alkaline Phosphatase 79 U/L (46-116); Anion Gap 7 (5-15); Aspartate Aminotransferase 22 U/L (13-40); BUN/Creatinine Ratio 35.1 (10.0-20.0); Blood Urea Nitrogen 20 mg/dL (9-23); Potassium 3.7 mmol/L (3.5-5.1); Sodium 137 mmol/L (136-145); Total Protein 7.3 g/dL (5.7-8.2)
[2025-01-29 07:28] LABS: Bilirubin, Total 1.3 mg/dL (0.2-1.0); Calcium 8.3 mg/dL (8.7-10.4); Carbon Dioxide 20 mmol/L (20-31); Chloride 110 mmol/L (98-107); Glucose 121 mg/dL (74-106)
[2025-01-29 07:30] VITALS: PULSE 90; RESP 20; O2SAT 95
[2025-01-29] MEDS: PANTOPRAZOLE 40 MG/10 ML VIAL INJ IV SCH (09:19)
[2025-01-29] MEDS: MINOXIDIL 2.5 MG TAB PO SCH (09:29)
[2025-01-29] MEDS: TAMSULOSIN HYDROCHLORIDE 0.4 MG CAP PO SCH (09:30)
[2025-01-29] MEDS: ZINC SULFATE 220mg CAP or TAB PO SCH (09:31)
[2025-01-29] MEDS: ASPirin-EC 81 mg tab PO SCH (09:31)
[2025-01-29] MEDS: MULTIPLE VITAMIN TAB PO SCH (09:32)
[2025-01-29] MEDS: LISINOPRIL 5 MG TAB PO SCH (09:33)
[2025-01-29] MEDS: NICOTINE 21MG/24 HR TOPICAL PATCH TD SCH (09:33)
[2025-01-29] MEDS ORDERED: ENOXAPARIN SOD 40 MG/0.4 ML SYRINGE SC SCH (10:00)
[2025-01-29] MEDS: HALOPERIDOL LACTATE 5 MG/ML INJ VIAL IM ONE (11:52)
--- NOTE | 2025-01-29 12:19 | DVHINCON2 ---
Date of service: Jan 29, [address] high Reason for Consultation Anemia History of Present Illness This 64-year-old man who is cachectic admitted with complaints of generalized weakness apparently he was in a rehab center where he left with three days ago his hemoglobin was found to be low of 5.9 the patient's came for blood transfusion denies any hematemesis or melena. Examination is confused and history of radiation has history of heavy alcohol abuse patient has had recent bilateral lower extremity stent placement and has got problems with followed in the right foot dressing which could not which is has got some source apparently with pus no gross GI bleeding no bleeding from anywhere else no history of any ulcer disease or colon problems Past Medical History Hypertension Past Surgical History Bilateral free lower extremity stent placement Family History: FH: cancer G8 MOTHER FH: lung cancer G8 FATHER Hepatitis C 19 CHILD Family History Noncontributory Social History History of drinking Allergies: Coded Allergies: NO KNOWN ALLERGIES (Unverified , 09/30/24) Home Meds Active Scripts Tamsulosin Hcl (Tamsulosin Hcl) 0.4 Mg Cap, 2 CAP PO DAILY, #60 CAP 5 Refills Prov:[facility] 10/04/24 Cilostazol (Cilostazol) 100 Mg Tab, 1 TAB PO BID, #60 TAB 5 Refills Prov:[facility] 10/04/24 Nicotine (Nicoderm 21MG/24HR) 1 Patch Ph, 1 PATCH TD DAILY for 30 Days, #30 PATCH Prov:[facility] 10/04/24 Minoxidil (Loniten) 2.5 Mg Tb, 5 MG PO DAILY for 30 Days, #60 TAB Prov:[facility] 10/04/24 Lisinopril (Lisinopril) 5 Mg Tab, 5 MG PO DAILY for 30 Days, #30 TAB Prov:[facility] 10/04/24 Hydralazine HCl (Hydralazine HCl) 25 Mg Tab, 50 MG PO Q8HR for 30 Days, #180 TAB Prov:[facility] 10/04/24 Atorvastatin Calcium (ATORVASTATIN CALCIUM) 20 Mg Tab, 80 MG PO HS for 30 Days, #120 TAB Prov:[facility] 10/04/24 Aspirin (Aspirin Low Dose) 81 Mg Tab, 81 MG PO DAILY for 30 Days, #30 TAB Prov:BRANDI HOPPER RESIDENT 10/04/24 Current Medications Current Medications Medications (Trade) Dose Ordered Sig/Omar Route PRN Reason Start Time Stop Time Status Last Admin Clindamycin Phosphate 50 ml @ 50 mls/hr Q8HR IV 01/28/25 22:00 01/29/25 06:11 Ceftriaxone Sodium 50 ml @ 100 mls/hr Q24H IV 01/29/25 15:00 Sodium Chloride 1,000 ml @ 100 mls/hr Q10H IV 01/28/25 19:00 01/29/25 05:00 Acetaminophen/ Hydrocodone Bitart ([place] 5/325MG Tab) 1 tab Q4HP PRN PO MODERATE PAIN (4-6 PAIN SCALE) 01/28/25 19:00 Enoxaparin Sodium (Lovenox) 40 mg DAILY SC 01/29/25 10:00 UNV Zinc Sulfate 220 mg DAILY PO 01/29/25 10:00 Ascorbic Acid (Vitamin C Tablet) 500 mg BID PO 01/28/25 22:00 01/28/25 19:52 Multivitamins (Mvi Tab) 1 tab DAILY PO 01/29/25 10:00 Acetaminophen (Tylenol Tablet) 650 mg Q6HP PRN PO PAIN SCALE 1-3 OR TEMP>100.4 01/28/25 19:00 Nitroglycerin (Ntrostat Sublingual) 0.4 mg Q5MINP PRN SL FOR CHEST PAIN 01/28/25 19:00 Morphine Sulfate 2 mg Q30M PRN IV FOR CHEST PAIN 01/28/25 19:00 Pantoprazole Sodium (Protonix) 40 mg DAILY IV 01/29/25 10:00 Aspirin (Ecotrin Enteric Coated Tablet) 81 mg DAILY PO 01/29/25 10:00 Atorvastatin Calcium (Lipitor) 80 mg HS PO 01/28/25 22:00 01/28/25 23:41 Cilostazol (Pletal) 100 mg BID PO 01/28/25 22:00 01/28/25 23:44 Hydralazine HCl (Apresoline Tablet) 50 mg Q8HR PO 01/28/25 22:00 01/29/25 06:11 Lisinopril (Zestril Tablet) 5 mg DAILY PO 01/29/25 10:00 Minoxidil (Loniten Tablet) 5 mg DAILY PO 01/29/25 10:00 Nicotine (Nicoderm 21MG/ 24HR) 1 patch DAILY TD 01/29/25 10:00 Tamsulosin HCl (Flomax) 0.4 mg DAILY PO 01/29/25 10:00 Review of Systems Noncontributory Vital Signs Vital Signs Date Time Temp Pulse Resp B/P (MAP) Pulse Ox O2 Delivery O2 Flow Rate FiO2 01/29/25 10:00 78 18 135/51 (79) 97 01/29/25 07:30 97.9 97.9 01/29/25 07:30 Room Air* 0 21 Physical Exam Moderately built and nourished male in no acute distress slightly on the wasted side confused HEENT examination mild pallor Lungs clear Cardiovascular unremarkable Abdomen is soft nontender no masses bowel sounds normal Labs/Diagnostic Data Labs Test 01/29/25 06:53 01/28/25 17:45 01/28/25 13:15 Range/Units White Blood Count 14.1 H 4.4-10.8 10^3/uL Red Blood Count 2.79 L 4.5-5.90 10^6/uL Hemoglobin 7.2 L 13.5-17.5 g/dL Hematocrit 22.4 L 41.0-53.0 % Mean Corpuscular Volume 80.3 80.0-100.0 fL Mean Corpuscular Hemoglobin 25.7 L 28.0-32.0 pg Mean Corpuscular Hemoglobin Concent 32.0 32.0-36.0 g/dL Red Cell Distribution Width 17.9 H 11.8-14.3 % Platelet Count 503 H 140-450 10^3/uL Mean Platelet Volume 7.6 6.9-10.8 fL Neutrophils (%) (Auto) 81.7 H 37.0-80.0 % Lymphocytes (%) (Auto) 9.6 L 10.0-50.0 % Monocytes (%) (Auto) 7.5 0.0-12.0 % Eosinophils (%) (Auto) 0.2 0.0-7.0 % Basophils (%) (Auto) 1.0 0.0-2.0 % Neutrophils # (Auto) 11.5 H 1.6-8.6 10 ^3/uL Lymphocytes # (Auto) 1.4 0.4-5.4 10 ^3/uL Monocytes # (Auto) 1.1 0-1.3 10 ^3/uL Eosinophils # (Auto) 0 0-0.8 10 ^3/uL Basophils # (Auto) 0.1 0-0.2 10 ^3/uL Nucleated Red Blood Cells 0.5 % Sodium Level 137 136-145 mmol/L Potassium Level 3.7 3.5-5.1 mmol/L Chloride Level 110 H 98-107 mmol/L Carbon Dioxide Level 20 20-31 mmol/L Anion Gap 7 5-15 Blood Urea Nitrogen 20 9-23 mg/dL Creatinine 0.57 L 0.700-1.30 mg/dL Glomerular Filtration Rate Calc 108 >90 mL/min BUN/Creatinine Ratio 35.1 H 10.0-20.0 Serum Glucose 121 H 74-106 mg/dL Hemoglobin A1c 5.3 <5.7 % A1C Lactic Acid Level 1.3 0.4-2.0 mmol/L Calcium Level 8.3 L 8.7-10.4 mg/dL Ferritin 29.9 22-322 ng/mL Total Bilirubin 1.3 H 0.2-1.0 mg/dL Aspartate Amino Transferase (AST) 22 13-40 U/L Alanine Aminotransferase (ALT) 12 7-40 U/L Alkaline Phosphatase 79 46-116 U/L Total Protein 7.3 5.7-8.2 g/dL Albumin 3.4 3.2-4.8 g/dL Thyroid Stimulating Hormone (TSH) 3.97 0.55-4.78 uIU/mL Iron Level 13 L 65-175 ug/dL Total Iron Binding Capacity 251 250-425 ug/dL Percent Iron Saturation 5.2 L 20-55 % Platelet Estimate Increased Polychromasia Slight Hypochromasia (manual) Slight Anisocytosis (manual) Slight Troponin I High Sensitivity 6 </=54 ng/L Microbiology Date/Time Source Procedure Growth Status 01/28/25 19:30 Foot Right Gram Stain Pending Resulted 01/28/25 19:30 Foot Right Wound Culture - Preliminary Resulted Assessment 64-year-old cachectic male with a history of hypertension with the reason for from lower extremity stent placement for ischemic disease of the legs complaints of generalized weakness and low hemoglobin no history of any GI bleeding history of heavy alcohol abuse Clinical impression Anemia possibly of chronic disease no GI bleeding seen Plan/Recommendation Recommend stool for Hemoccult Follow hemoglobin closely If Anemia persist may need hematological evaluation and if necessary also GI evaluation especially if the Hemoccult is positive Thank you Plan discussed with: Patient RICARDO STERN MD Jan 29, 2025 12:19
[2025-01-29] MEDS: HYDROcodone-ACET 5/325MG TAB PO PRN (12:58)
[2025-01-29] MEDS: MORPHINE SULFATE INJ 2 MG/ml SYRG IV PRN (13:03)
[2025-01-29 14:29] LABS: Hemoglobin 7.2 g/dL (13.5-17.5)
[2025-01-29 14:31] LABS: Hematocrit 22.4 % (41.0-53.0)
[2025-01-29] MEDS ORDERED: VANCOMYCIN PER PHARMACY 0 MG IV SCH (15:00)
[2025-01-29] MEDS ORDERED: cefTRIAXone 1GM/50ML D5W 50 ML IV SCH (15:00)
--- NOTE | 2025-01-29 15:04 | DVH ---
Bilateral lower extremity venous duplex Clinical History: LEG SWELLING Comparison: US BILAT LOWER DVT on DOS: 09/30/24 Findings: Duplex Doppler evaluation of the deep venous systems of both lower extremities from the common femora l veins to the popliteal veins including color Doppler and spectral/pulsed waveform analysis was perf ormed. RIGHT SIDE: The common femoral vein demonstrates appropriate compressibility and waveform variability. There is compressibility/patency of the great saphenous vein at the proximal thigh. The femoral vein demonstrates appropriate compressibility and waveform variability. The deep femoral vein demonstrates appropriate compressibility and waveform variability. The popliteal vein demonstrates appropriate compressibility and waveform variability. There is normal compressibility at the tibioperoneal trunk. LEFT SIDE: The common femoral vein demonstrates appropriate compressibility and waveform variability. There is compressibility/patency of the great saphenous vein at the proximal thigh. The femoral vein demonstrates appropriate compressibility and waveform variability. The deep femoral vein demonstrates appropriate compressibility and waveform variability. The popliteal vein demonstrates appropriate compressibility and waveform variability. There is normal compressibility at the tibioperoneal trunk. IMPRESSION: No right or left femoropopliteal venous thrombosis. If clinical concern/symptoms persist or worsen, short-interval follow-up study is suggested. END IMPRESSION:
--- NOTE | 2025-01-29 15:06 | DVH ---
INDICATION: HISTORY OF BILATERAL HYDRONEPHROSIS, RENAL ARTERY STENOSIS TECHNIQUE: Multiple real-time sonographic images of the kidneys and bladder were obtained. COMPARISON: None FINDINGS: The right kidney measures 7 cm in length, which is normal in size. There is normal echogeni city of the right kidney. No hydronephrosis. The left kidney measures 11 cm in length, which is normal in size. There is normal echogenicity of th e left kidney. No hydronephrosis. Distended bladder with debris. Bladder volume measures 1848 cc. IMPRESSION: Atrophic right kidney. Distended bladder with debris. Gallbladder sludge.
[2025-01-29] MEDS: HALOPERIDOL LACTATE 5 MG/ML INJ VIAL IM PRN (16:55)
[2025-01-29] MEDS: CEFEPIME 1GM/ 50ML 50 ML IV ONE (17:10)
[2025-01-29 18:24] VITALS: O2SAT 94
[2025-01-29 18:36] VITALS: BP 101/53; PULSE 59; RESP 24; TEMP 97.8; O2SAT 90
[2025-01-29 18:36] LABS: Hematocrit 20.3 % (41.0-53.0)
[2025-01-29 18:39] LABS: Hemoglobin 6.5 g/dL (13.5-17.5)
[2025-01-29 20:00] VITALS: PULSE 90
[2025-01-29] MEDS: VANCOMYCIN 1.25GM/250ML 250 ML IV SCH (20:49)
[2025-01-29 20:53] VITALS: BP 123/49; PULSE 89; RESP 24; TEMP 97.7; O2SAT 94
[2025-01-29] MEDS ORDERED: CEFEPIME 1GM/ 50ML 50 ML IV SCH (22:00)
[2025-01-29] MEDS: CEFEPIME 1GM/ 50ML 50 ML IV SCH (22:12)
[2025-01-29 23:52] LABS: Basophils # (auto) 0 10 ^3/uL (0-0.2); Eosinophils # (auto) 0 10 ^3/uL (0-0.8); Lymphocytes # (auto) 1.2 10 ^3/uL (0.4-5.4); Red Cell Distribution Width 17.7 % (11.8-14.3)
[2025-01-29 23:55] LABS: Basophils % (auto) 0.1 % (0.0-2.0); Hematocrit 19.1 % (41.0-53.0); Lymphocytes % (auto) 8.7 % (10.0-50.0); Mean Corpuscular Hemoglobin 25.8 pg (28.0-32.0); Mean Corpuscular Hgb Conc. 31.9 g/dL (32.0-36.0); Mean Corpuscular Volume 80.8 fL (80.0-100.0); Monocytes # (auto) 1.2 10 ^3/uL (0-1.3); Monocytes % (auto) 8.4 % (0.0-12.0); Neutrophils # (auto) 11.5 10 ^3/uL (1.6-8.6); Neutrophils % (auto) 82.8 % (37.0-80.0); Nucleated Red Blood Cells % 0.2 %; Platelet Count (auto) 427 10^3/uL (140-450); Red Blood Cells 2.36 10^6/uL (4.5-5.90); White Blood Cell 13.9 10^3/uL (4.4-10.8)
[2025-01-30] VITALS (11 sets, daily range): BP systolic 108–138; BP diastolic 40–96; PULSE 77–89; RESP 19–20; TEMP 97.7–98.7; O2SAT 96–99
[2025-01-30 00:01] LABS: Hemoglobin 6.1 g/dL (13.5-17.5)
[2025-01-30 00:06] LABS: % Iron Saturation 9.6 % (20-55)
[2025-01-30 00:13] LABS: INR 1.31 (0.9-1.15); Prothrombin Time 13.5 sec (9.3-11.8)
[2025-01-30] MEDS: ACETAMINOPHEN 500 MG TAB or CAP PO ONE (01:23)
--- NOTE | 2025-01-30 07:21 | DVHPNRES ---
Progress Note Date Seen: Jan 29, 2025 Resident Creating Document: BILLY MORENO Medical Necessity Reason Pt with a Central, PICC or Fol: No The following are medically ne: Aviles Catheter Subjective Review of Systems This is a 64-year-old cachectic male with PMH of HTN, PAD, BPH, vasculopathy, Sufu-zm-eguhbmyp stenosis of the juxtarenal abdominal aorta. Qqhb-pk-sfmizolr stenosis of the superior mesenteric. 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 Cclr-op-slttbcke stenosis of the left renal artery. 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 and recent bilateral lower extremity stent placement presents to ED with chief complaint of generalized weakness since he left rehab center three days ago. He had his blood drawn at the rehab center for which has showed hemoglobin of 5.9. The patient was instructed to go to the nearest ER for blood transfusion. He denied bloody stool and hematemesis. He denies taking anticoagulant. The patient reports heavy alcohol abuse quit four months ago. The patient hemoglobin found to be 5.4 with lactic acid 4.3. Upon evaluating patient in ER bed 12, notable foul odor noted to his right foot with dressing in place. The dressing was saturated removed and multiple open sores with pus were present. The patient states that his right leg wound has been dressed two days ago and currently under treatment without being prescribed any antibiotics. The patient is currently receiving packed red blood cell transfusion. The patient is concerned about his symptoms and would like to be further evaluated and treated. The patient will be admitted under hospitalist care to the telemetry unit for continuous monitoring. The patient denies fever, chills, headache, dizziness, palpitation, chest pain, nausea, vomiting, abdominal pain, diarrhea, constipation and other associated symptoms. The plan has been discussed with the patient in which all questions concerns have been addressed. Initial lab workup revealed leukocytosis with WBC 17.4, severe anemia with a hemoglobin 5.4. CXR-No pulmonary airspace consolidation. Ultrasound of the abdomen revealed- Atrophic right kidney. Distended bladder with debris. Gallbladder sludge.Bladder volume measures 1848 cc. Doppler study of the lower extremity negative for DVT. PMH-HTN, PAD, BPH, Hotd-qo-tqlqupdg stenosis of the juxtarenal abdominal aorta. Wxvf-up-syxqgrxu stenosis of the superior mesenteric. 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 Qlmz-vq-qabgkazx stenosis of the left renal artery. High- grade stenosis or occlusion of the proximal right common iliac artery. PSH- status post bilateral lower extremity stent Allergy- Personal History/ Social History- Patient was seen today at the bedside. Patient Cardiovascular- deny acute chest pain or shortness of breath or cough or palpitation Respiratory denies cough or short of breath or wheezing Gastrointestinal- denies any rectal bleeding, nausea or vomiting Musculoskeletal-denies acute joint swelling or tenderness or redness Neurological- denies acute dysarthria, dysphagia, change in vision Psychiatry- denies depression or SI or HI Skin- denies acute rash or purpura Patient was seen today for clinical evaluation. Labs and chart reviewed. Patient with a severe anemia had 2 units of blood transfusion of packed red blood cell. Patient with confusion. Patient had retention of urine. Aviles's catheter inserted and 1800 mL of urine was drained. Objective vital signs Vital Sign Date Time Temp Pulse Resp B/P (MAP) Pulse Ox O2 Delivery O2 Flow Rate FiO2 01/30/25 05:39 130/40 01/30/25 05:00 98.0 81 20 97 98.0 01/29/25 20:00 Room Air* 0 21 Total Intake and Output 01/29/25 01/29/25 01/30/25 15:00 23:00 07:00 Intake Total 500 ml Output Total 1105 ml Balance -605 ml medications Current Medications Medications Dose Ordered Sig/Omar Route Start Time Stop Time Status Last Admin Dose Admin Sodium Chloride 1,000 ml @ 100 mls/hr Q10H IV 01/28/25 19:00 01/30/25 02:19 100 MLS/HR Acetaminophen/ Hydrocodone Bitart 1 tab Q4HP PRN PO 01/28/25 19:00 01/29/25 12:58 1 TAB Zinc Sulfate 220 mg DAILY PO 01/29/25 10:00 Ascorbic Acid 500 mg BID PO 01/28/25 22:00 01/29/25 22:44 500 MG Multivitamins 1 tab DAILY PO 01/29/25 10:00 Acetaminophen 650 mg Q6HP PRN PO 01/28/25 19:00 Nitroglycerin 0.4 mg Q5MINP PRN SL 01/28/25 19:00 Morphine Sulfate 2 mg Q30M PRN IV 01/28/25 19:00 01/29/25 13:03 2 MG Pantoprazole Sodium 40 mg DAILY IV 01/29/25 10:00 Aspirin 81 mg DAILY PO 01/29/25 10:00 Atorvastatin Calcium 80 mg HS PO 01/28/25 22:00 01/29/25 22:43 80 MG Cilostazol 100 mg BID PO 01/28/25 22:00 01/29/25 22:52 100 MG Hydralazine HCl 50 mg Q8HR PO 01/28/25 22:00 01/29/25 06:11 50 MG Lisinopril 5 mg DAILY PO 01/29/25 10:00 Minoxidil 5 mg DAILY PO 01/29/25 10:00 Nicotine 1 patch DAILY TD 01/29/25 10:00 Tamsulosin HCl 0.4 mg DAILY PO 01/29/25 10:00 Cefepime HCl 50 ml @ 12.5 mls/hr Q12HR IV 01/29/25 22:00 01/29/25 22:12 12.5 MLS/HR Vancomycin HCl 0 ml @ 0 mls/hr UD IV 01/29/25 15:00 Vancomycin HCl 250 ml @ 200 mls/hr Q12H IV 01/29/25 20:00 01/29/25 20:49 200 MLS/HR Haloperidol Lactate 5 mg Q8HP PRN IM 01/29/25 17:00 01/30/25 01:10 5 MG Examination General examination- HEENT- PEERLA, no acute nasal discharge Cardiovascular- S1-S2 audible, rate and rhythm regular, no murmur Respiratory- CTAB, no wheeze or rhonchi Gastrointestinal-nontender, bowel sound+. Nondistended Musculoskeletal-no acute joint swelling or tenderness or redness Lower extremity- right foot ulcer with a black eschar on the medial and inferior surface of the foot, with redness and skin excoriation of the rest of the foot Neurological- cranial nerves intact, no acute dysarthria or dysphagia Psychiatry- denies depression or SI or HI Skin- right foot ulcer with a black eschar on the medial and inferior surface of the foot, with redness and skin excoriation of the rest of the foot laboratory and microbiology Laboratory Tests 01/29/25 23:38 01/29/25 06:53 Test 01/29/25 06:53 Range/Units Serum Glucose 121 H 74-106 mg/dL Microbiology Date/Time Source Procedure Growth Status 01/28/25 19:30 Foot Right Gram Stain Pending Resulted 01/28/25 19:30 Foot Right Wound Culture - Preliminary Resulted 01/28/25 14:17 Blood Blood Culture - Preliminary NO GROWTH AFTER 24 HOURS OF INCUBATION. Resulted Problem List/Assessment/Plan Problem List/Assessment/Plan Assessment and plan Sepsis likely due to right foot cellulitis right foot ulcer with a black eschar on the medial and inferior surface of the foot, with redness and skin excoriation of the rest of the foot\ Right foot cellulitis with a blackish care Severe anemia Acute retention of urine likely due to BPH Metabolic encephalopathy/toxic encephalopathy Suspected Wernicke's encephalopathy Peripheral arterial disease Severe vasculopathy BPH Hyperlipidemia Hypertension Plan Continue cefepime and vancomycin as prescribed Continue IV fluid as prescribed Continue pain medication as prescribed Pantoprazole as prescribed Tamsulosin 0.4 mg p.o. daily Cilostazol 100 mg p.o. b.i.d. Atorvastatin 80 mg p.o. HS Aspirin 81 mg p.o. daily Goals of care, Code status ; discussed with >15 minutes PUD prophylaxis: Pantoprazole DVT prophylaxis: Patient was severe anemia Plan discussed with Dr. Cotton , nursing staff, Total time spent on patient evaluation, chart review, assessment and plan, discussion discussion >35 minutes Plan discussed with: Patient, Other (RN) My Orders My Orders Orders - BILLY MORENO RESIDENT Procedure Category Date Status Time Urinalysis LAB 01/29/25 Logged 10:11 Urine Bacterial RON 01/29/25 Logged Culture 10:11 Kidney US 01/29/25 Resulted 10:15 Stool Occult Blood LAB 01/29/25 Logged 11:31 Vitamin B1 (Thiamine) LAB 01/29/25 In Process 11:54 Vitamin B12 LAB 01/29/25 In Process 11:54 Folate (Folic Acid) LAB 01/29/25 In Process 11:54 Drug Screen LAB 01/29/25 Logged 11:54 Bilat Lower Dvt US 01/29/25 Resulted 11:54 Stool Occult Blood LAB 01/29/25 Logged 13:22 Mrsa Screen RON 01/29/25 Logged 13:24 Cefepime 1gm/ 50ml PHA 01/29/25 In Process (Maxipime 1gm/50ml) 22:00 Vancomycin Per PHA 01/29/25 In Process Pharmacy 15:00 Aviles Catheters ED NURSING 01/29/25 Transmitted Communication Order ORDERS 01/29/25 Transmitted 15:00 Vancomycin PHA 01/29/25 In Process 1.25gm/250ml 20:00 Complete Blood Count LAB 01/30/25 Logged 04:00 Creatinine LAB 01/30/25 Logged 04:00 Vancomycin,Trough LAB 01/31/25 Verified 07:00 Vancomycin Per DELROY 01/29/25 In Process Pharmacy Protoc 15:36 Haloperidol Lactate PHA 01/29/25 In Process Injection (Haldol) 17:00 CC Plasma Assessment Blood Product Administration S: 2152 Date of Service: Jan 29, 2025 Billing Provider: DOLORES KAT MD Common Visit Codes: [id number] INP/OBS CARE(HIGH) BILLY MORENO RESIDENT Jan 30, 2025 07:21 DOLORES KAT MD Feb 01, 2025 00:33
[2025-01-30 08:19] LABS: Basophils # (auto) 0 10 ^3/uL (0-0.2); Basophils % (auto) 0.1 % (0.0-2.0); Eosinophils # (auto) 0 10 ^3/uL (0-0.8); Nucleated Red Blood Cells % 0.2 %
[2025-01-30 08:21] LABS: Eosinophils % (auto) 0.1 % (0.0-7.0); Hematocrit 24.3 % (41.0-53.0); Hemoglobin 7.8 g/dL (13.5-17.5); Lymphocytes # (auto) 1.2 10 ^3/uL (0.4-5.4); Lymphocytes % (auto) 8.9 % (10.0-50.0); Mean Corpuscular Hemoglobin 26.4 pg (28.0-32.0); Mean Corpuscular Hgb Conc. 32.3 g/dL (32.0-36.0); Mean Corpuscular Volume 81.8 fL (80.0-100.0); Monocytes # (auto) 1.1 10 ^3/uL (0-1.3); Monocytes % (auto) 8.7 % (0.0-12.0); Neutrophils # (auto) 10.7 10 ^3/uL (1.6-8.6); Neutrophils % (auto) 82.2 % (37.0-80.0); Platelet Count (auto) 394 10^3/uL (140-450); Red Blood Cells 2.97 10^6/uL (4.5-5.90); Red Cell Distribution Width 17.5 % (11.8-14.3)
[2025-01-30 08:31] LABS: Alanine Aminotransferase 24 U/L (7-40); Alkaline Phosphatase 72 U/L (46-116); Anion Gap 7 (5-15); Blood Urea Nitrogen 11 mg/dL (9-23); Carbon Dioxide 22 mmol/L (20-31); Glucose 74 mg/dL (74-106); Sodium 141 mmol/L (136-145); Total Protein 6.5 g/dL (5.7-8.2)
[2025-01-30 08:37] LABS: Aspartate Aminotransferase 81 U/L (13-40); Calcium 8.1 mg/dL (8.7-10.4); Chloride 112 mmol/L (98-107); Potassium 2.6 mmol/L (3.5-5.1)
[2025-01-30 10:30] LABS: Folate (Folic Acid) 8.67 ng/mL (>5.38)
[2025-01-30] MEDS: SODIUM CHL 0.9% 100 ML IV SCH (10:30)
[2025-01-30] MEDS ORDERED: POTASSIUM CHL 20MEQ/100ML 100 ML IV SCH (10:30)
[2025-01-30] MEDS: POTASSIUM CHL 20MEQ/50ML 50 ML IV SCH (10:36)
[2025-01-30] MEDS ORDERED: LACTATED RINGER'S 600 ML IV PRN (11:15)
[2025-01-30 12:21] LABS: Amphetamine Screen, Urine Neg (NEGATIVE); Barbiturate Scree,Urine Neg (NEGATIVE); Benzodiazephine Screen, Urine Neg (NEGATIVE); Cannabinoid Screen, Urine Neg (NEGATIVE); Cocaine Screen, Urine Neg (NEGATIVE); Opiate Scree,Urine Neg (NEGATIVE); Phencyclidine Screen, Urine Neg (NEGATIVE)
[2025-01-30 12:38] LABS: Urine Bacteria FEW /hpf (None Seen); Urine Blood 3+ /uL (Negative); Urine Color Light-Red (Yellow); Urine Mucus FEW (None Seen); Urine Protein, UAD 1+ (Negative); Urine Specific Gravity 1.014 (1.001-1.035); Urine Squamous Epithelial Cell FEW /hpf (<5); Urine Urobilinogen Normal (Negative); Urine WBC 35 /HPF (0-3)
[2025-01-30 12:49] LABS: Hemoglobin 8.4 g/dL (13.5-17.5)
[2025-01-30 12:51] LABS: Hematocrit 25.4 % (41.0-53.0)
--- NOTE | 2025-01-30 12:54 | DVH ---
Bilateral Lower Extremity Arterial Duplex Date: 01/30/2025 11:33 AM Clinical History: hx pad, RLE wound, exam test adequate flow Comparison: US BILAT LOW EXT ART DUPLEX on DOS: 09/30/24 Findings: Duplex Doppler evaluation including color Doppler and spectral/pulsed waveform analysis of the lower extremity arteries was performed. Advanced bilateral peripheral arterial bilateral. No flow seen right distal superficial femoral linda ry right anterior tibial artery and dorsalis pedal artery due to. Monophasic waveforms seen bilateral ly. IMPRESSION: Advanced bilateral peripheral arterial bilateral . No flow seen right distal superficial femoral artery right anterior tibial artery and dorsalis pedal artery due to . Monophasic waveforms seen bilaterally.
[2025-01-30 13:01] LABS: Urine Clarity Cloudy (Clear)
[2025-01-30] MEDS ORDERED: THIAMINE 100mg/ml INJ (200mg/2ml VIAL) IM ONE (13:30)
[2025-01-30] MEDS: IOHEXOL 300 MG/ML 100ML BOTTLE IJ ONE (14:26)
[2025-01-30] MEDS: SODIUM CHLORIDE 0.9% 1,000 ML IV SCH (15:57)
--- NOTE | 2025-01-30 17:09 | DVHPNRES ---
Progress Note Date Seen: Jan 30, 2025 Resident Creating Document: BILLY MORENO RESIDENT Medical Necessity Reason Pt with a Central, PICC or Fol: No The following are medically ne: Aviles Catheter Subjective Review of Systems This is a 64-year-old cachectic male with PMH of HTN, PAD, BPH, vasculopathy, Xjny-gm-oyhlrvhm stenosis of the juxtarenal abdominal aorta. Iluv-ya-gktvdzrb stenosis of the superior mesenteric. 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 Vwhh-lp-acxaflph stenosis of the left renal artery. 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 and recent bilateral lower extremity stent placement presents to ED with chief complaint of generalized weakness since he left rehab center three days ago. He had his blood drawn at the rehab center for which has showed hemoglobin of 5.9. The patient was instructed to go to the nearest ER for blood transfusion. He denied bloody stool and hematemesis. He denies taking anticoagulant. The patient reports heavy alcohol abuse quit four months ago. The patient hemoglobin found to be 5.4 with lactic acid 4.3. Upon evaluating patient in ER bed 12, notable foul odor noted to his right foot with dressing in place. The dressing was saturated removed and multiple open sores with pus were present. The patient states that his right leg wound has been dressed two days ago and currently under treatment without being prescribed any antibiotics. The patient is currently receiving packed red blood cell transfusion. The patient is concerned about his symptoms and would like to be further evaluated and treated. The patient will be admitted under hospitalist care to the telemetry unit for continuous monitoring. The patient denies fever, chills, headache, dizziness, palpitation, chest pain, nausea, vomiting, abdominal pain, diarrhea, constipation and other associated symptoms. The plan has been discussed with the patient in which all questions concerns have been addressed. Initial lab workup revealed leukocytosis with WBC 17.4, severe anemia with a hemoglobin 5.4. UDS negative, serum alcohol< 3.0. CXR-No pulmonary airspace consolidation. Ultrasound of the abdomen revealed- Atrophic right kidney. Distended bladder with debris. Gallbladder sludge.Bladder volume measures 1848 cc. Doppler study of the lower extremity negative for DVT. Arterial Doppler of the lower extremity revealed no flu seen in the right distal superficial femoral artery, right anterior tibial and dorsalis pedis artery. UDS negative, serum alcohol< 3.0 PMH-HTN, PAD, BPH, Zppy-tw-bouqjgdm stenosis of the juxtarenal abdominal aorta. Gdyb-az-fjwarihe stenosis of the superior mesenteric. 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 Crwn-ef-qghgkcsd stenosis of the left renal artery. High- grade stenosis or occlusion of the proximal right common iliac artery. PSH- status post bilateral lower extremity stent Allergy- Personal History/ Social History- history of alcoholism but exacerbation patient did not drink alcohol last couple of months when he was in rehab. Patient was seen today at the bedside. Patient Cardiovascular- deny acute chest pain or shortness of breath or cough or palpitation Respiratory denies cough or short of breath or wheezing Gastrointestinal- denies any rectal bleeding, nausea or vomiting Musculoskeletal-denies acute joint swelling or tenderness or redness Neurological- denies acute dysarthria, dysphagia, change in vision Psychiatry- denies depression or SI or HI Skin- denies acute rash or purpura Patient was seen today for clinical evaluation. Labs and chart reviewed. Patient had 1 more unit of blood transfusion last night. Patient's WBC trending down from 17.4-13.0. Today morning patient had hypokalemia with a potassium 2.6, supplemented, LDH elevated to 278, albumin 3.0. Ordered CT scan of the abdomen pelvis and CT of the head for further evaluation and care. Objective vital signs Vital Sign Date Time Temp Pulse Resp B/P (MAP) Pulse Ox O2 Delivery O2 Flow Rate FiO2 01/30/25 14:00 110/57 01/30/25 13:00 98.1 79 20 99 98.1 01/30/25 08:00 Room Air* 0 21 Total Intake and Output 01/29/25 01/29/25 01/30/25 15:00 23:00 07:00 Intake Total 500 ml Output Total 1105 ml Balance -605 ml medications Current Medications Medications Dose Ordered Sig/Omar Route Start Time Stop Time Status Last Admin Dose Admin Acetaminophen/ Hydrocodone Bitart 1 tab Q4HP PRN PO 01/28/25 19:00 01/30/25 15:54 1 TAB Zinc Sulfate 220 mg DAILY PO 01/29/25 10:00 01/30/25 10:43 220 MG Ascorbic Acid 500 mg BID PO 01/28/25 22:00 01/30/25 10:47 500 MG Multivitamins 1 tab DAILY PO 01/29/25 10:00 01/30/25 10:47 1 TAB Acetaminophen 650 mg Q6HP PRN PO 01/28/25 19:00 Nitroglycerin 0.4 mg Q5MINP PRN SL 01/28/25 19:00 Morphine Sulfate 2 mg Q30M PRN IV 01/28/25 19:00 01/29/25 13:03 2 MG Pantoprazole Sodium 40 mg DAILY IV 01/29/25 10:00 Aspirin 81 mg DAILY PO 01/29/25 10:00 01/30/25 10:41 81 MG Atorvastatin Calcium 80 mg HS PO 01/28/25 22:00 01/29/25 22:43 80 MG Cilostazol 100 mg BID PO 01/28/25 22:00 01/30/25 11:32 100 MG Hydralazine HCl 50 mg Q8HR PO 01/28/25 22:00 01/29/25 06:11 50 MG Lisinopril 5 mg DAILY PO 01/29/25 10:00 Minoxidil 5 mg DAILY PO 01/29/25 10:00 Nicotine 1 patch DAILY TD 01/29/25 10:00 Tamsulosin HCl 0.4 mg DAILY PO 01/29/25 10:00 01/30/25 10:47 0.4 MG Cefepime HCl 50 ml @ 12.5 mls/hr Q12HR IV 01/29/25 22:00 01/30/25 10:29 12.5 MLS/HR Vancomycin HCl 0 ml @ 0 mls/hr UD IV 01/29/25 15:00 Vancomycin HCl 250 ml @ 200 mls/hr Q12H IV 01/29/25 20:00 01/30/25 08:27 200 MLS/HR Haloperidol Lactate 5 mg Q8HP PRN IM 01/29/25 17:00 01/30/25 01:10 5 MG Lactulose 30 ml BIDPRN PRN PO 01/30/25 08:00 Lactated Ringer's 600 ml @ 200 mls/hr Q3H PRN IV 01/30/25 11:15 Folic Acid 1 mg/ Dextrose 50.2 ml @ 200.8 mls/ hr DAILY INJ 01/31/25 10:00 UNV Folic Acid 1 mg/ Magnesium Sulfate 8 meq/ Multivitamins 10 ml/Thiamine HCl 100 mg/Sodium Chloride 1,013.2 ml @ 126.247 mls/hr DAILY@1800 INJ 01/30/25 18:00 Thiamine HCl 100 mg DAILY PO 01/31/25 10:00 Folic Acid 1 mg DAILY PO 01/31/25 10:00 Sodium Chloride 1,000 ml @ 100 mls/hr Q10H IV 01/30/25 14:30 01/30/25 15:57 100 MLS/HR Examination General examination- HEENT- PEERLA, no acute nasal discharge Cardiovascular- S1-S2 audible, rate and rhythm regular, no murmur Respiratory- CTAB, no wheeze or rhonchi Gastrointestinal-nontender, bowel sound+. Nondistended Musculoskeletal-no acute joint swelling or tenderness or redness Lower extremity- right foot ulcer with a black eschar on the medial and inferior surface of the foot, with redness and skin excoriation of the rest of the foot Neurological- cranial nerves intact, no acute dysarthria or dysphagia Psychiatry- denies depression or SI or HI Skin- right foot ulcer with a black eschar on the medial and inferior surface of the foot, with redness and skin excoriation of the rest of the foot laboratory and microbiology Laboratory Tests 01/30/25 12:14 01/30/25 07:38 Test 01/30/25 07:38 Range/Units Serum Glucose 74 74-106 mg/dL Microbiology Date/Time Source Procedure Growth Status 01/28/25 19:30 Foot Right Gram Stain - Final Resulted 01/28/25 19:30 Foot Right Wound Culture - Preliminary Resulted 01/28/25 14:17 Blood Blood Culture - Preliminary NO GROWTH AFTER 48 HOURS OF INCUBATION. Resulted Problem List/Assessment/Plan Problem List/Assessment/Plan Assessment and plan- Sepsis likely due to right foot cellulitis right foot ulcer with a black eschar on the medial and inferior surface of the foot, with redness and skin excoriation of the rest of the foot\ Right foot cellulitis with a blackish care Severe anemia Acute retention of urine likely due to BPH Metabolic encephalopathy/toxic encephalopathy Suspected Wernicke's encephalopathy Peripheral arterial disease Severe vasculopathy BPH Hyperlipidemia Hypertension Plan Blood culture negative Wound culture many Gram-negative rods Pending CT scan of the abdomen and pelvis Pending CT scan of the head with the contrast Continue cefepime and vancomycin as prescribed Continue IV fluid as prescribed Continue pain medication as prescribed Pantoprazole as prescribed Tamsulosin 0.4 mg p.o. daily Cilostazol 100 mg p.o. b.i.d. Atorvastatin 80 mg p.o. HS Aspirin 81 mg p.o. daily Continue thiamine and folic acid as prescribed Goals of care, Code status ; discussed with >15 minutes PUD prophylaxis: Pantoprazole DVT prophylaxis: Patient was severe anemia Plan discussed with Dr. Cotton , nursing staff, Total time spent on patient evaluation, chart review, assessment and plan, discussion discussion >35 minutes Plan discussed with: Patient, Spouse, Daughter, Other (RN) My Orders My Orders Orders - BILLY MORENO Procedure Category Date Status Time Stool Occult Blood LAB 01/30/25 Logged 07:47 Lactulose Oral PHA 01/30/25 In Process 08:00 *Podiatry Consult CONS 01/30/25 Transmitted Musson([facility]) 13:17 Folic Acid... PHA 01/30/25 In Process 18:[address] 01/30/25 Logged 13:36 Thiamine Tab PHA 01/31/25 In Process 10:00 Folic Acid Tablet PHA 01/31/25 In Process 10:00 Complete Blood Count LAB 01/31/25 Verified 04:00 Creatinine LAB 01/31/25 Verified 04:00 Folic Acid PHA 01/30/25 Logged 17:15 CC Plasma Assessment Blood Product Administration S: 2151 Date of Service: Jan 30, 2025 Billing Provider: DOLORES KAT MD Common Visit Codes: [id number] INP/OBS CARE(HIGH) BILLY MORENO Jan 30, 2025 17:09 DOLORES KAT MD Feb 01, 2025 00:34
[2025-01-30] MEDS ORDERED: FOLIC ACID 1 MG in D5W 5% 50 ML INJ ONE (17:15)
[2025-01-30] MEDS: FOLIC ACID 1 MG, MAGNESIUM SULF SDV 50% 8 MEQ, MULTIPLE VITAMIN 10 ML, THIAMINE INJ 100... INJ SCH (17:58)
[2025-01-30 18:28] LABS: Sodium 138 mmol/L (136-145)
[2025-01-30 18:29] LABS: Anion Gap 8 (5-15)
[2025-01-30] MEDS: THIAMINE 100mg/ml INJ (200mg/2ml VIAL) IM ONE (18:33)
[2025-01-30 18:34] LABS: BUN/Creatinine Ratio 17.4 (10.0-20.0); Glucose 95 mg/dL (74-106)
[2025-01-30 19:00] LABS: Blood Urea Nitrogen 8 mg/dL (9-23); Calcium 7.9 mg/dL (8.7-10.4); Carbon Dioxide 19 mmol/L (20-31); Chloride 111 mmol/L (98-107); Potassium 3.2 mmol/L (3.5-5.1)
[2025-01-31] VITALS (14 sets, daily range): BP systolic 63–110; BP diastolic 24–52; PULSE 82–100; RESP 16–19; TEMP 97.5–98.2; O2SAT 94–98
[2025-01-31] MEDS ORDERED: POTASSIUM CHL 20MEQ/100ML 100 ML IV SCH (06:00)
[2025-01-31] MEDS: SODIUM CHLORIDE 0.9% 500 ML IV ONE ×2 (06:15→21:46)
--- NOTE | 2025-01-31 07:23 | DVHCONRES ---
Date Seen: Jan 31, 2025 Resident Creating Document: CINDY HAYWOOD Jr., MD Referring Physician ronnie Reason for Consultation severe pvd History of Present Illness This is a 64-year-old cachectic male with PMH of HTN, PAD, BPH, pvd, [id number] stenosis of the juxtarenal abdominal aorta. [id number] stenosis of the superior mesenteric. 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 Azrr-kh-[id number] stenosis of the left renal artery. 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 and recent bilateral lower extremity stent placement presents to ED with chief complaint of generalized weakness since he left rehab center three days ago. He had his blood drawn at the rehab center for which has showed hemoglobin of 5.9. The patient was instructed to go to the nearest ER for blood transfusion. He denied bloody stool and hematemesis. He denies taking anticoagulant. The patient reports heavy alcohol abuse quit four months ago. The patient hemoglobin found to be 5.4 with lactic acid 4.3. U. The patient is currently receiving packed red blood cell transfusion. TThe patient will be admitted under hospitalist care to the telemetry unit for continuous monitoring. The patient denies fever, chills, headache, dizziness, palpitation, chest pain, nausea, vomiting, abdominal pain, diarrhea, constipation and other associated symptoms. The plan has been discussed with the patient in which all questions concerns have been addressed. Initial lab workup revealed leukocytosis with WBC 17.4, severe anemia with a hemoglobin 5.4. UDS negative, serum alcohol< 3.0. CXR-No pulmonary airspace consolidation. Ultrasound of the abdomen revealed- Atrophic right kidney. Distended bladder with debris. Gallbladder sludge.Bladder volume measures 1848 cc. Doppler study of the lower extremity negative for DVT. Arterial Doppler of the lower extremity revealed no flu seen in the right distal superficial femoral artery, right anterior tibial and dorsalis pedis artery. UDS negative, serum alcohol< 3.0. pt. in bed confused. Past Medical History PMH of HTN, PAD, BPH, Past Surgical History Recent endovascular procedures of lower extremities details unclear? ? Family History: FH: cancer G8 MOTHER FH: lung cancer G8 FATHER Hepatitis C 19 CHILD Social History Former smoker and alcohol use positive Allergies: Coded Allergies: NO KNOWN ALLERGIES (Unverified , 09/30/24) Home Meds Active Scripts Tamsulosin Hcl (Tamsulosin Hcl) 0.4 Mg Cap, 2 CAP PO DAILY, #60 CAP 5 Refills Prov:[facility] 10/04/24 Cilostazol (Cilostazol) 100 Mg Tab, 1 TAB PO BID, #60 TAB 5 Refills [facility] 10/04/24 Nicotine (Nicoderm 21MG/24HR) 1 Patch Ph, 1 PATCH TD DAILY for 30 Days, #30 PATCH [facility]24 Minoxidil (Loniten) 2.5 Mg Tb, 5 MG PO DAILY for 30 Days, #60 TAB [facility] 10/04/24 Lisinopril (Lisinopril) 5 Mg Tab, 5 MG PO DAILY for 30 Days, #30 TAB [facility] 10/04/24 Hydralazine HCl (Hydralazine HCl) 25 Mg Tab, 50 MG PO Q8HR for 30 Days, #180 TAB [facility] 10/04/24 Atorvastatin Calcium (ATORVASTATIN CALCIUM) 20 Mg Tab, 80 MG PO HS for 30 Days, #120 TAB [facility] 10/04/24 Aspirin (Aspirin Low Dose) 81 Mg Tab, 81 MG PO DAILY for 30 Days, #30 TAB [facility] 10/04/24 Current Medications Current Medications Medications (Trade) Dose Ordered Sig/Omar Route PRN Reason Start Time Stop Time Status Last Admin Lactulose 30 ml BIDPRN PRN PO FOR CONSTIPATION 01/30/25 08:00 Potassium Chloride 100 ml @ 50 mls/hr Q2H IV 01/30/25 10:30 01/30/25 10:17 DC Sodium Chloride 100 ml @ 50 mls/hr Q2H IV 01/30/25 10:30 01/30/25 16:29 DC Potassium Chloride 50 ml @ 25 mls/hr Q2H IV 01/30/25 10:30 01/30/25 16:29 DC 01/30/25 13:47 Lactated Ringer's 600 ml @ 200 mls/hr Q3H PRN IV after ct con 01/30/25 11:15 01/30/25 17:08 DC Folic Acid 1 mg/ Dextrose 50.2 ml @ 200.8 mls/ hr DAILY INJ 01/31/25 10:00 UNV Folic Acid 1 mg/ Magnesium Sulfate 8 meq/ Multivitamins 10 ml/Thiamine HCl 100 mg/Sodium Chloride 1,013.2 ml @ 126.247 mls/hr DAILY@1800 INJ 01/30/25 18:00 01/30/25 17:58 Thiamine HCl 100 mg DAILY PO 01/31/25 10:00 Folic Acid 1 mg DAILY PO 01/31/25 10:00 Sodium Chloride 1,000 ml @ 100 mls/hr Q10H IV 01/30/25 14:30 01/31/25 01:16 Potassium Chloride 100 ml @ 50 mls/hr Q2H IV 01/31/25 06:00 01/31/25 09:59 Vital Signs Vital Signs Date Time Temp Pulse Resp B/P (MAP) Pulse Ox O2 Delivery O2 Flow Rate FiO2 01/31/25 05:24 110/51 01/31/25 05:00 97.5 89 19 94 97.5 01/30/25 20:00 Room Air* 0 21 Physical Exam Patient is confused head eyes ears nose and throat exam eyes are nonicteric conjunctiva is pink neck is supple no dyspnea. No lymphadenopathy no carotid bruits lungs are clear to auscultation heart was regular rate and rhythm abdomen was soft nontender with no pulsatile abdominal mass or bruits lower extremities palpable femoral pulses bilaterally a week. Nonpalpable pedal pulses right foot is dressed recently just changed according to note has black eschar on the foot with some drainage. Labs/Diagnostic Data Labs Test 01/30/25 17:25 01/30/25 15:00 01/30/25 12:14 01/30/25 11:20 Range/Units Sodium Level 138 136-145 mmol/L Potassium Level 3.2 L 3.5-5.1 mmol/L Chloride Level 111 H 98-107 mmol/L Carbon Dioxide Level 19 L 20-31 mmol/L Anion Gap 8 5-15 Blood Urea Nitrogen 8 L 9-23 mg/dL Creatinine 0.46 L 0.700-1.30 mg/dL Glomerular Filtration Rate Calc 115 >90 mL/min BUN/Creatinine Ratio 17.4 10.0-20.0 Serum Glucose 95 74-106 mg/dL Calcium Level 7.9 L 8.7-10.4 mg/dL Hemoglobin 8.4 L 13.5-17.5 g/dL Hematocrit 25.4 L 41.0-53.0 % Lactate Dehydrogenase 278 H 120-246 U/L Urine Color Light-red Yellow Urine Clarity Cloudy H Clear Urine pH 6.0 5.0-9.0 Urine Specific [place] 1.014 1.001-1.035 Urine Protein 1+ H Negative Urine Ketones Negative Negative Urine Blood 3+ H Negative /uL Urine Nitrite Negative Negative Urine Bilirubin Negative Negative Urine Urobilinogen Normal Negative mg/dL Urine Leukocyte Esterase 1+ Negative /uL Urine RBC 7434 0 - 3 /hpf Urine Microscopic WBC 35 H 0-3 /HPF Urine Squamous Epithelial Cells Few <5 /hpf Urine Bacteria Few H None Seen /hpf Urine Mucus Few None Seen Urine Glucose Normal Normal mg/dL Urine Opiates Screen Neg NEGATIVE Urine Fentanyl Screen Neg NEGATIVE Urine Barbiturates Screen Neg NEGATIVE Urine Phencyclidine Screen Neg NEGATIVE Urine Amphetamines Screen Neg NEGATIVE Urine Benzodiazepines Screen Neg NEGATIVE Urine Cocaine Screen Neg NEGATIVE Urine Cannabinoids Screen Neg NEGATIVE Test 01/30/25 07:38 01/29/25 23:38 01/29/25 14:20 01/29/25 06:53 Range/Units White Blood Count 13.0 H 4.4-10.8 10^3/uL Red Blood Count 2.97 L 4.5-5.90 10^6/uL Mean Corpuscular Volume 81.8 80.0-100.0 fL Mean Corpuscular Hemoglobin 26.4 L 28.0-32.0 pg Mean Corpuscular Hemoglobin Concent 32.3 32.0-36.0 g/dL Red Cell Distribution Width 17.5 H 11.8-14.3 % Platelet Count 394 140-450 10^3/uL Mean Platelet Volume 7.6 6.9-10.8 fL Neutrophils (%) (Auto) 82.2 H 37.0-80.0 % Lymphocytes (%) (Auto) 8.9 L 10.0-50.0 % Monocytes (%) (Auto) 8.7 0.0-12.0 % Eosinophils (%) (Auto) 0.1 0.0-7.0 % Basophils (%) (Auto) 0.1 0.0-2.0 % Neutrophils # (Auto) 10.7 H 1.6-8.6 10 ^3/uL Lymphocytes # (Auto) 1.2 0.4-5.4 10 ^3/uL Monocytes # (Auto) 1.1 0-1.3 10 ^3/uL Eosinophils # (Auto) 0 0-0.8 10 ^3/uL Basophils # (Auto) 0 0-0.2 10 ^3/uL Nucleated Red Blood Cells 0.2 % Lactic Acid Level 1.1 0.4-2.0 mmol/L Total Bilirubin 1.0 0.2-1.0 mg/dL Aspartate Amino Transferase (AST) 81 H 13-40 U/L Alanine Aminotransferase (ALT) 24 7-40 U/L Alkaline Phosphatase 72 46-116 U/L Total Protein 6.5 5.7-8.2 g/dL Albumin 3.0 L 3.2-4.8 g/dL Reticulocyte Count (auto) 3.67 H 0.5-1.5 % Prothrombin Time 13.5 H 9.3-11.8 sec Prothrombin Time INR 1.31 H 0.9-1.15 Fibrinogen 385 H 177-375 mg/dL Iron Level 23 L 65-175 ug/dL Total Iron Binding Capacity 239 L 250-425 ug/dL Percent Iron Saturation 9.6 L 20-55 % Ferritin 42.6 22-322 ng/mL Ammonia < 10 L 11-32 umol/L Plasma/Serum Blood Alcohol < 3.0 <10 mg/dL Hemoglobin A1c 5.3 <5.7 % A1C Vitamin B12 Level 972 H 211-911 pg/mL Folic Acid 8.67 >5.38 ng/mL Thyroid Stimulating Hormone (TSH) 3.97 0.55-4.78 uIU/mL Test 01/28/25 13:15 Range/Units Platelet Estimate Increased Polychromasia Slight Hypochromasia (manual) Slight Anisocytosis (manual) Slight Troponin I High Sensitivity 6 </=54 ng/L Microbiology Date/Time Source Procedure Growth Status 01/28/25 19:30 Foot Right Gram Stain - Final Resulted 01/28/25 19:30 Foot Right Wound Culture - Preliminary Resulted 01/28/25 14:17 Blood Blood Culture - Preliminary NO GROWTH AFTER 48 HOURS OF INCUBATION. Resulted Bilateral Lower Extremity Arterial Duplex Date: 01/30/2025 11:33 AM Clinical History: hx pad, RLE wound, exam test adequate flow Comparison: US BILAT LOW EXT ART DUPLEX on DOS: 09/30/24 Findings: Duplex Doppler evaluation including color Doppler and spectral/pulsed waveform analysis of the lower extremity arteries was performed. Advanced bilateral peripheral arterial bilateral. No flow seen right distal superficial femoral artery right anterior tibial artery and dorsalis pedal artery due to. Monophasic waveforms seen bilaterally. IMPRESSION: Advanced bilateral peripheral arterial bilateral . No flow seen right distal superficial femoral artery right anterior tibial artery and dorsalis pedal artery due to . Monophasic waveforms seen bilaterally. Assessment Right foot wound with severe peripheral vascular disease. Awaiting CTA of the abdomen and pelvis with bilateral lower extremity. Would recommend reviewing this CTA prior to podiatry debriding the foot in case revascularization is necessary. We will continue to follow Appreciate medical management and podiatry consultation. Plan discussed with: Patient CINDY HAYWOOD Jr., MD Jan 31, 2025 07:23
[2025-01-31 07:57] LABS: Basophils # (auto) 0 10 ^3/uL (0-0.2); Basophils % (auto) 0.3 % (0.0-2.0); Eosinophils # (auto) 0 10 ^3/uL (0-0.8); Eosinophils % (auto) 0.3 % (0.0-7.0); Hematocrit 24.9 % (41.0-53.0); Hemoglobin 8.1 g/dL (13.5-17.5); Lymphocytes # (auto) 1.1 10 ^3/uL (0.4-5.4); Lymphocytes % (auto) 8.8 % (10.0-50.0); Mean Corpuscular Hemoglobin 26.7 pg (28.0-32.0); Mean Corpuscular Hgb Conc. 32.3 g/dL (32.0-36.0); Mean Corpuscular Volume 82.6 fL (80.0-100.0); Monocytes % (auto) 8.2 % (0.0-12.0); Neutrophils # (auto) 9.8 10 ^3/uL (1.6-8.6); Neutrophils % (auto) 82.4 % (37.0-80.0); Nucleated Red Blood Cells % 0.2 %; Platelet Count (auto) 357 10^3/uL (140-450); Red Blood Cells 3.02 10^6/uL (4.5-5.90); Red Cell Distribution Width 17.7 % (11.8-14.3); White Blood Cell 11.9 10^3/uL (4.4-10.8)
[2025-01-31 08:11] LABS: Alkaline Phosphatase 70 U/L (46-116); Anion Gap 9 (5-15); BUN/Creatinine Ratio 17.5 (10.0-20.0); Glucose 90 mg/dL (74-106); Sodium 137 mmol/L (136-145)
[2025-01-31 08:12] LABS: Bilirubin, Total 0.8 mg/dL (0.2-1.0)
[2025-01-31 08:16] LABS: Alanine Aminotransferase 53 U/L (7-40); Albumin 2.6 g/dL (3.2-4.8); Aspartate Aminotransferase 265 U/L (13-40); Blood Urea Nitrogen 7 mg/dL (9-23); Calcium 7.4 mg/dL (8.7-10.4); Carbon Dioxide 19 mmol/L (20-31); Chloride 109 mmol/L (98-107); Potassium 3.2 mmol/L (3.5-5.1); Total Protein 5.7 g/dL (5.7-8.2)
[2025-01-31] MEDS: IOHEXOL 300 MG/ML 100ML BOTTLE IJ ONE (08:49)
[2025-01-31] MEDS: POTASSIUM CHL 20MEQ/50ML 50 ML IV SCH (09:15)
[2025-01-31] MEDS ORDERED: FOLIC ACID 1 MG in D5W 5% 50 ML INJ SCH (10:00)
--- NOTE | 2025-01-31 10:06 | DVH ---
EXAM: CT HEAD WITHOUT CONTRAST INDICATION: AMS TECHNIQUE: CT of the head without intravenous contrast. Coronal and sagittal reformatted images are s ubmitted. Radiation Dose : 1. Head: CT Dose: CTDI volume is 51.1 mGy. Dose-length product is 394.4 mGy*cm The dose indicators for CT are the volume Computed Tomography (CT) Dose Index (CTDIvol) and the Dose Length Product (DLP), and are measured in units of mGy and mGy-cm, respectively. These indicators are not patient dose, but values generated from the CT scanner acquisition factors. The report includes radiation exposure data for exposures received during this examination. All CT scans at this medical facility are performed using dose modulation techniques as appropriate to a performed exam including the following: Automated exposure control was utilized; adjustment of the MA and/or KV according to patient size; and use of iterative reconstruction technique. COMPARISON: CT HEAD WITHOUT CONTRAST on DOS: 09/30/24 FINDINGS: There is no evidence of acute intracranial hemorrhage, extra-axial collection, mass effect, midline s hift, herniation or hydrocephalus. There are periventricular and subcortical hypodensities, nonspecific, but likely reflecting sequelae of chronic microvascular ischemic changes. The ventricles, sulci and cisterns are age appropriate. The white-white differentiation is intact. The visualized paranasal sinuses and mastoid air cells are clear. No depressed calvarial fracture. The surrounding soft tissues are unremarkable. IMPRESSION: 1. No evidence of acute intracranial abnormality.
--- NOTE | 2025-01-31 10:09 | DVH ---
CLINICAL INFORMATION: 64 years old, Male; anemia recurrent, no bleed source.. TECHNIQUE: Axial CT images of the abdomen and pelvis were obtained after the uneventful administrati on of 100 mL Omnipaque 300 IV contrast. Coronal and sagittal reformatted images were obtained, review ed, and stored. All CT scans at this medical facility are performed using dose modulation techniques as appropriate to a performed exam including the following: Automated exposure control was utilized; adjustment of the MA and/or KV according to patient size; and use of iterative reconstruction technNutrinia ue. CTDIvol = 6.78, 53.89, 0.07, 0.07 mGy DLP = 1683.05 mGy-cm COMPARISON: CT CT ANGIO ABD AORTA W RUN OFF on DOS: 09/30/24 FINDINGS: Lung bases: Small bilateral pleural effusions with overlying compressive atelectasis. Respiratory mot ion artifact limits evaluation for subtle findings. Dense coronary artery calcification. Liver: Nodular contour of the liver with relative enlargement of the left hepatic lobe, suggesting c irrhosis. Biliary: Partially contracted gallbladder. No calcified gallstones visualized. Limited evaluation due to motion artifact and prominent beam hardening artifact from adjacent device outside of the patient . Spleen: Unremarkable. Pancreas: Grossly unremarkable given the limitations of motion artifact and prominent beam hardening artifact obscuring visualization. Adrenal glands: Grossly unremarkable. Kidneys: No hydronephrosis or mass. Aorta/Vascular: Dense atherosclerotic calcification. No abdominal aortic aneurysm. Retroperitoneum: Limited evaluation due to artifact, ascites, and beam hardening artifact. Bowel/mesentery: Moderate ascites. Nonspecific nondilated fluid-filled small bowel loops. No small shasta wel obstruction. Appendix is not visualized. Scattered colonic diverticula. Limited evaluation for di verticulitis due to the limitations of the examination described above. Pelvic organs: Grossly unremarkable. Bladder: Aviles catheter extends into the bladder. Bladder is moderately distended. Abdominal wall: Diffuse anasarca. Bones: No acute fracture or focal intraosseous lesion. IMPRESSION: 1. Limited examination due to motion artifact, beam hardening artifact, and ascites. 2. Moderate ascites. 3. Cirrhotic liver morphology. 4. Nonspecific nondilated fluid-filled small bowel loops. Findings may be seen with ileus or enteriti s in the appropriate clinical setting. No small bowel obstruction. 5. Aviles catheter in the bladder. Bladder is moderately distended. 6. Colonic diverticulosis. Limited evaluation for diverticulitis due to the reasons described above. 7. Small bilateral pleural effusions with overlying compressive atelectasis. 8. Additional findings as described above.
[2025-01-31] MEDS: THIAMINE HCL 100 MG TAB PO SCH (10:47)
[2025-01-31] MEDS: FOLIC ACID 1 MG TAB PO SCH (10:49)
[2025-01-31] MEDS: Ensure HIGH Protein Chocolate 8oz Bottle PO SCH (12:00)
--- NOTE | 2025-01-31 13:05 | DVHINCON2 ---
Date Seen: Jan 31, 2025 Reason for Consultation Right heel wound History of Present Illness This is a 64-year-old cachectic male with history of hypertension, and recent bilateral lower extremity stent placement presents to ED with chief complaint of generalized weakness since he left rehab center three days ago. He had his blood drawn at the rehab center for which has showed hemoglobin of 5.9. The patient was instructed to go to the nearest ER for blood transfusion. He denied bloody stool and hematemesis. He denies taking anticoagulant. The patient reports heavy alcohol abuse quit four months ago. The patient hemoglobin found to be 5.4 with lactic acid 4.3. Upon evaluating patient in ER bed 12, notable foul odor noted to his right foot with dressing in place. The dressing was saturated removed and multiple open sores with pus were present. The patient states that his right leg wound has been dressed two days ago and currently under treatment without being prescribed any antibiotics. The patient is currently receiving packed red blood cell transfusion. The patient is concerned about his symptoms and would like to be further evaluated and treated. The patient will be admitted under hospitalist care to the telemetry unit for continuous monitoring. The patient denies fever, chills, headache, dizziness, palpitation, chest pain, nausea, vomiting, abdominal pain, diarrhea, constipation and other associated symptoms. The plan has been discussed with the patient in which all questions concerns have been addressed. Past Medical History See H&P Past Surgical History See H&P Family History: FH: cancer G8 MOTHER FH: lung cancer G8 FATHER Hepatitis C 19 CHILD Allergies: Coded Allergies: NO KNOWN ALLERGIES (Unverified , 09/30/24) Home Meds Active Scripts Tamsulosin Hcl (Tamsulosin Hcl) 0.4 Mg Cap, 2 CAP PO DAILY, #60 CAP 5 Refills Prov:BRANDI HOPPER RESIDENT 10/04/24 Cilostazol (Cilostazol) 100 Mg Tab, 1 TAB PO BID, #60 TAB 5 Refills Prov:BRANDI HOPPER 10/04/24 Nicotine (Nicoderm 21MG/24HR) 1 Patch Ph, 1 PATCH TD DAILY for 30 Days, #30 PATCH Prov:BRANDI HOPPER [facility] 10/04/24 Minoxidil (Loniten) 2.5 Mg Tb, 5 MG PO DAILY for 30 Days, #60 TAB Prov:BRANDI HOPPER [facility] 10/04/24 Lisinopril (Lisinopril) 5 Mg Tab, 5 MG PO DAILY for 30 Days, #30 TAB Prov:BRANDI HOPPER [facility] 10/04/24 Hydralazine HCl (Hydralazine HCl) 25 Mg Tab, 50 MG PO Q8HR for 30 Days, #180 TAB Prov:BRANDI HOPPER [facility] 10/04/24 Atorvastatin Calcium (ATORVASTATIN CALCIUM) 20 Mg Tab, 80 MG PO HS for 30 Days, #120 TAB Prov:BRANDI HOPPER [facility] 10/04/24 Aspirin (Aspirin Low Dose) 81 Mg Tab, 81 MG PO DAILY for 30 Days, #30 TAB Prov:BRANDI HOPPER [facility] 10/04/24 Current Medications Current Medications Medications (Trade) Dose Ordered Sig/Omar Route PRN Reason Start Time Stop Time Status Last Admin Folic Acid 1 mg/ Dextrose 50.2 ml @ 200.8 mls/ hr DAILY INJ 01/31/25 10:00 UNV Folic Acid 1 mg/ Magnesium Sulfate 8 meq/ Multivitamins 10 ml/Thiamine HCl 100 mg/Sodium Chloride 1,013.2 ml @ 126.247 mls/hr DAILY@1800 INJ 01/30/25 18:00 01/31/25 11:31 DC 01/30/25 17:58 Thiamine HCl 100 mg DAILY PO 01/31/25 10:00 01/31/25 12:28 DC 01/31/25 10:47 Folic Acid 1 mg DAILY PO 01/31/25 10:00 01/31/25 10:49 Sodium Chloride 1,000 ml @ 100 mls/hr Q10H IV 01/30/25 14:30 01/31/25 13:15 01/31/25 10:34 Potassium Chloride 100 ml @ 50 mls/hr Q2H IV 01/31/25 06:00 01/31/25 09:08 DC Enteral Nutritional Formula (Ensure High Protein) 240 ml QID PO 01/31/25 12:00 Potassium Chloride 50 ml @ 25 mls/hr Q2H IV 01/31/25 09:15 01/31/25 13:14 01/31/25 11:15 Sodium Chloride 1,000 ml @ 100 mls/hr Q10H IV 01/31/25 13:15 Thiamine HCl 500 mg TID IV 01/31/25 14:00 02/02/25 11:00 UNV Multivitamins/ Minerals (Mvi W/ Minerals Tablet) 1 tab DAILY PO 02/01/25 10:00 Vital Signs Vital Signs Date Time Temp Pulse Resp B/P (MAP) Pulse Ox O2 Delivery O2 Flow Rate FiO2 01/31/25 10:52 112/51 01/31/25 08:59 98.2 82 16 96 98.2 01/31/25 08:00 Room Air* 0 21 Physical Exam Dermatological: Skin is dry with mild erythema and some maceration around the wound site No gross deformities noted Mild non-pitting edema present bilaterally Wound: Location: Right plantar heel Measures: 6 cm in length, 4 cm in width, and 1 cm in depth. Depth: Full thickness Base: Eschar Drainage: Yes Odor: Yes Periwound: Yes Vascular: Dorsalis pedis and posterior tibial pulses are 1+ bilaterally Capillary refill is under 2 seconds Skin temperature is warm bilaterally Neurologic: Protective sensation is absent on the plantar forefoot bilaterally Monofilament testing reveals decreased sensation in multiple plantar sites Musculoskeletal: Range of motion at the ankle and MTP joints is within normal limits. Strength is 5/5 in all tested muscle groups. Gait is antalgic due to offloading of the affected limb. Labs/Diagnostic Data Labs Test 01/31/25 06:00 01/30/25 15:00 01/30/25 12:14 01/30/25 11:20 Range/Units White Blood Count 11.9 H 4.4-10.8 10^3/uL Red Blood Count 3.02 L 4.5-5.90 10^6/uL Hemoglobin 8.1 L 13.5-17.5 g/dL Hematocrit 24.9 L 41.0-53.0 % Mean Corpuscular Volume 82.6 80.0-100.0 fL Mean Corpuscular Hemoglobin 26.7 L 28.0-32.0 pg Mean Corpuscular Hemoglobin Concent 32.3 32.0-36.0 g/dL Red Cell Distribution Width 17.7 H 11.8-14.3 % Platelet Count 357 140-450 10^3/uL Mean Platelet Volume 7.3 6.9-10.8 fL Neutrophils (%) (Auto) 82.4 H 37.0-80.0 % Lymphocytes (%) (Auto) 8.8 L 10.0-50.0 % Monocytes (%) (Auto) 8.2 0.0-12.0 % Eosinophils (%) (Auto) 0.3 0.0-7.0 % Basophils (%) (Auto) 0.3 0.0-2.0 % Neutrophils # (Auto) 9.8 H 1.6-8.6 10 ^3/uL Lymphocytes # (Auto) 1.1 0.4-5.4 10 ^3/uL Monocytes # (Auto) 1.0 0-1.3 10 ^3/uL Eosinophils # (Auto) 0 0-0.8 10 ^3/uL Basophils # (Auto) 0 0-0.2 10 ^3/uL Nucleated Red Blood Cells 0.2 % Sodium Level 137 136-145 mmol/L Potassium Level 3.2 L 3.5-5.1 mmol/L Chloride Level 109 H 98-107 mmol/L Carbon Dioxide Level 19 L 20-31 mmol/L Anion Gap 9 5-15 Blood Urea Nitrogen 7 L 9-23 mg/dL Creatinine 0.40 L 0.700-1.30 mg/dL Glomerular Filtration Rate Calc 120 >90 mL/min BUN/Creatinine Ratio 17.5 10.0-20.0 Serum Glucose 90 74-106 mg/dL Calcium Level 7.4 L 8.7-10.4 mg/dL Total Bilirubin 0.8 0.2-1.0 mg/dL Aspartate Amino Transferase (AST) 265 H 13-40 U/L Alanine Aminotransferase (ALT) 53 H 7-40 U/L Alkaline Phosphatase 70 46-116 U/L Total Protein 5.7 5.7-8.2 g/dL Albumin 2.6 L 3.2-4.8 g/dL Vancomycin Level Trough 16.4 H 5-10 ug/mL Haptoglobin 288 32-363 mg/dL Lactate Dehydrogenase 278 H 120-246 U/L Urine Color Light-red Yellow Urine Clarity Cloudy H Clear Urine pH 6.0 5.0-9.0 Urine Specific [place] 1.014 1.001-1.035 Urine Protein 1+ H Negative Urine Ketones Negative Negative Urine Blood 3+ H Negative /uL Urine Nitrite Negative Negative Urine Bilirubin Negative Negative Urine Urobilinogen Normal Negative mg/dL Urine Leukocyte Esterase 1+ Negative /uL Urine RBC 7434 0 - 3 /hpf Urine Microscopic WBC 35 H 0-3 /HPF Urine Squamous Epithelial Cells Few <5 /hpf Urine Bacteria Few H None Seen /hpf Urine Mucus Few None Seen Urine Glucose Normal Normal mg/dL Urine Opiates Screen Neg NEGATIVE Urine Fentanyl Screen Neg NEGATIVE Urine Barbiturates Screen Neg NEGATIVE Urine Phencyclidine Screen Neg NEGATIVE Urine Amphetamines Screen Neg NEGATIVE Urine Benzodiazepines Screen Neg NEGATIVE Urine Cocaine Screen Neg NEGATIVE Urine Cannabinoids Screen Neg NEGATIVE Test 01/30/25 07:38 01/29/25 23:38 01/29/25 14:20 01/29/25 06:53 Range/Units Lactic Acid Level 1.1 0.4-2.0 mmol/L Reticulocyte Count (auto) 3.67 H 0.5-1.5 % Prothrombin Time 13.5 H 9.3-11.8 sec Prothrombin Time INR 1.31 H 0.9-1.15 Fibrinogen 385 H 177-375 mg/dL Iron Level 23 L 65-175 ug/dL Total Iron Binding Capacity 239 L 250-425 ug/dL Percent Iron Saturation 9.6 L 20-55 % Ferritin 42.6 22-322 ng/mL Ammonia < 10 L 11-32 umol/L Plasma/Serum Blood Alcohol < 3.0 <10 mg/dL Hemoglobin A1c 5.3 <5.7 % A1C Vitamin B12 Level 972 H 211-911 pg/mL Folic Acid 8.67 >5.38 ng/mL Thyroid Stimulating Hormone (TSH) 3.97 0.55-4.78 uIU/mL Test 01/28/25 13:15 Range/Units Platelet Estimate Increased Polychromasia Slight Hypochromasia (manual) Slight Anisocytosis (manual) Slight Troponin I High Sensitivity 6 </=54 ng/L Microbiology Date/Time Source Procedure Growth Status 01/28/25 19:30 Foot Right Gram Stain - Final Resulted 01/28/25 19:30 Wound Culture - Preliminary Escherichia coli Pseudomonas aeruginosa Methicillin Resistant S.aureus Resulted 01/28/25 14:17 Blood Blood Culture - Preliminary NO GROWTH AFTER 48 HOURS OF INCUBATION. Resulted Problems(with codes): (1) Necrotizing soft tissue infection (2) Abscess (3) Wet gangrene (4) Osteomyelitis (5) Hydronephrosis (6) Arterial occlusion (7) Sepsis (8) Symptomatic anemia Plan/Recommendation ASSESSMENT: Patient is a _ year old seen on the floor for a worsening ulcer PLAN: - The patient�s chart was reviewed, clinical findings were discussed with the patient, the etiologies of the conditions were discussed in detail, and a treatment plan was agreed to at this time, with both oral and written instructions provided. - reviewed advanced imaging - discussed plan is to perform an incision and drainage with possible heel bone biopsy and calcanectomy - patient will be NPO at midnight - take him to the OR tomorrow - we will get cultures in the OR - can weightbear as tolerated in postoperative shoe All questions were answered and concerns addressed to the patient's satisfaction. The patient was given the phone number to the clinic and was told how to make contact with the clinic should any concerns or questions arise. Patient understands that if any questions or concerns arise prior to the next appointment, we should be contacted immediately. FOLLOW-UP: Continue to follow while inpatient Plan discussed with: Patient Date of Service: Jan 31, 2025 Billing Provider: NARCISA NICOLE DPM Common Visit Codes: CONSULT ONLY Consultation Codes: [id number] CONSULT <80MIN NARCISA NICOLE DPM Jan 31, 2025 13:05
[2025-01-31] MEDS: THIAMINE 100mg/ml INJ (200mg/2ml VIAL) IM ONE (14:00)
[2025-01-31] MEDS ORDERED: THIAMINE 100mg/ml INJ (200mg/2ml VIAL) IV SCH (14:00)
[2025-01-31] MEDS: MULTIPLE VITAMINS W/ MINERALS TAB PO ONE (14:43)
[2025-01-31] MEDS: SODIUM CHLORIDE 0.9% 1,000 ML IV SCH (14:43)
[2025-01-31] MEDS: THIAMINE INJ 500 MG in D5W 5% 50 ML IV SCH ×2 (15:45→21:40)
[2025-01-31] MEDS ORDERED: THIAMINE 100mg/ml INJ (200mg/2ml VIAL) IV ONE (15:45)
--- NOTE | 2025-01-31 16:35 | DVHPNRES ---
Progress Note Date Seen: Jan 31, 2025 Resident Creating Document: BILLY MORENO Medical Necessity Reason Pt with a Central, PICC or Fol: No The following are medically ne: Aviles Catheter Subjective Review of Systems This is a 64-year-old cachectic male with PMH of HTN, PAD, BPH, vasculopathy, Jzrk-lu-hrpjfchp stenosis of the juxtarenal abdominal aorta. Bask-wi-nupwtlkp stenosis of the superior mesenteric. 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 Ckur-ke-jwfoipyi stenosis of the left renal artery. 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 and recent bilateral lower extremity stent placement presents to ED with chief complaint of generalized weakness since he left rehab center three days ago. He had his blood drawn at the rehab center for which has showed hemoglobin of 5.9. The patient was instructed to go to the nearest ER for blood transfusion. He denied bloody stool and hematemesis. He denies taking anticoagulant. The patient reports heavy alcohol abuse quit four months ago. The patient hemoglobin found to be 5.4 with lactic acid 4.3. UDS negative, serum alcohol< 3.0. . Upon evaluating patient in ER bed 12, notable foul odor noted to his right foot with dressing in place. The dressing was saturated removed and multiple open sores with pus were present. The patient states that his right leg wound has been dressed two days ago and currently under treatment without being prescribed any antibiotics. The patient is currently receiving packed red blood cell transfusion. The patient is concerned about his symptoms and would like to be further evaluated and treated. The patient will be admitted under hospitalist care to the telemetry unit for continuous monitoring. The patient denies fever, chills, headache, dizziness, palpitation, chest pain, nausea, vomiting, abdominal pain, diarrhea, constipation and other associated symptoms. The plan has been discussed with the patient in which all questions concerns have been addressed. Initial lab workup revealed leukocytosis with WBC 17.4, severe anemia with a hemoglobin 5.4. UDS negative, serum alcohol< 3.0. CXR-No pulmonary airspace consolidation. Ultrasound of the abdomen revealed- Atrophic right kidney. Distended bladder with debris. Gallbladder sludge.Bladder volume measures 1848 cc. Doppler study of the lower extremity negative for DVT. Arterial Doppler of the lower extremity revealed no flow seen in the right distal superficial femoral artery, right anterior tibial and dorsalis pedis artery. CT abdomen and pelvis revealed moderate ascites, cirrhotic liver. Colonic diverticulosis, small bilateral pleural effusion with overlying compressive atelectasis. CT head negative for acute intracranial abnormality PMH-HTN, PAD, BPH, Zeru-xk-bygjoadn stenosis of the juxtarenal abdominal aorta. Zfsm-ln-oasclhud stenosis of the superior mesenteric. 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 Zpwo-yc-yaifbakv stenosis of the left renal artery. High- grade stenosis or occlusion of the proximal right common iliac artery. PSH- status post bilateral lower extremity stent Allergy- Personal History/ Social History- history of alcoholism but exacerbation patient did not drink alcohol last couple of months when he was in rehab. Patient was seen today at the bedside. Patient Cardiovascular- deny acute chest pain or shortness of breath or cough or palpitation Respiratory denies cough or short of breath or wheezing Gastrointestinal- denies any rectal bleeding, nausea or vomiting Musculoskeletal-denies acute joint swelling or tenderness or redness Neurological- denies acute dysarthria, dysphagia, change in vision Psychiatry- denies depression or SI or HI Skin- denies acute rash or purpura Patient was seen today for clinical evaluation. Labs and chart reviewed. CT abdomen and pelvis revealed moderate ascites, cirrhotic liver. Colonic diverticulosis, small bilateral pleural effusion with overlying compressive atelectasis. Patient was seen by vascular surgeon Dr. Cali, commended- Awaiting CTA of the abdomen and pelvis with bilateral lower extremity. Would recommend reviewing this CTA prior to podiatry debriding the foot in case revascularization is necessary. Patient was also seen by Podiatry Dr. Gracia recommendedincision and drainage with possible heel bone biopsy and calcanectomy, -patient will be NPO at midnight. Provider informed Dr. Gracia about vascular surgeon's recommendation. Patient with Wernicke encephalopathy. Started thiamine 500 mg IV t.i.d for 2 days. Treatment will follow Provider spoke to patient's daughter Karen rodriguez, ., discussed patient's current medical condition, plan of care and answered her questions. Objective vital signs Vital Sign Date Time Temp Pulse Resp B/P (MAP) Pulse Ox O2 Delivery O2 Flow Rate FiO2 01/31/25 14:00 101/62 01/31/25 13:00 97.9 84 18 98 97.9 01/31/25 08:00 Room Air* 0 21 Total Intake and Output 01/30/25 01/30/25 01/31/25 15:00 23:00 07:00 Intake Total 250 ml 934 ml 250 ml Output Total 750 ml 280 ml Balance 250 ml 184 ml -30 ml medications Current Medications Medications Dose Ordered Sig/Omar Route Start Time Stop Time Status Last Admin Dose Admin Acetaminophen/ Hydrocodone Bitart 1 tab Q4HP PRN PO 01/28/25 19:00 01/30/25 15:54 1 TAB Zinc Sulfate 220 mg DAILY PO 01/29/25 10:00 01/31/25 10:52 220 MG Ascorbic Acid 500 mg BID PO 01/28/25 22:00 01/31/25 10:52 500 MG Acetaminophen 650 mg Q6HP PRN PO 01/28/25 19:00 Nitroglycerin 0.4 mg Q5MINP PRN SL 01/28/25 19:00 Morphine Sulfate 2 mg Q30M PRN IV 01/28/25 19:00 01/29/25 13:03 2 MG Pantoprazole Sodium 40 mg DAILY IV 01/29/25 10:00 01/31/25 11:00 40 MG Aspirin 81 mg DAILY PO 01/29/25 10:00 01/31/25 10:49 81 MG Atorvastatin Calcium 80 mg HS PO 01/28/25 22:00 01/30/25 21:57 80 MG Cilostazol 100 mg BID PO 01/28/25 22:00 01/31/25 10:53 100 MG Hydralazine HCl 50 mg Q8HR PO 01/28/25 22:00 01/29/25 06:11 50 MG Lisinopril 5 mg DAILY PO 01/29/25 10:00 01/31/25 10:50 5 MG Minoxidil 5 mg DAILY PO 01/29/25 10:00 01/31/25 10:52 5 MG Nicotine 1 patch DAILY TD 01/29/25 10:00 01/31/25 11:07 1 PATCH Tamsulosin HCl 0.4 mg DAILY PO 01/29/25 10:00 01/31/25 10:53 0.4 MG Cefepime HCl 50 ml @ 12.5 mls/hr Q12HR IV 01/29/25 22:00 01/31/25 10:00 12.5 MLS/HR Vancomycin HCl 0 ml @ 0 mls/hr UD IV 01/29/25 15:00 Vancomycin HCl 250 ml @ 200 mls/hr Q12H IV 01/29/25 20:00 01/31/25 08:00 200 MLS/HR Haloperidol Lactate 5 mg Q8HP PRN IM 01/29/25 17:00 01/30/25 22:01 5 MG Lactulose 30 ml BIDPRN PRN PO 01/30/25 08:00 Folic Acid 1 mg/ Dextrose 50.2 ml @ 200.8 mls/ hr DAILY INJ 01/31/25 10:00 UNV Folic Acid 1 mg DAILY PO 01/31/25 10:00 01/31/25 10:49 1 MG Enteral Nutritional Formula 240 ml QID PO 01/31/25 12:00 01/31/25 12:00 240 ML Sodium Chloride 1,000 ml @ 100 mls/hr Q10H IV 01/31/25 13:15 01/31/25 14:43 100 MLS/HR Multivitamins/ Minerals 1 tab DAILY PO 02/01/25 10:00 Thiamine HCl 500 mg/Dextrose 55 ml @ 100 mls/hr TID IV 01/31/25 14:00 02/02/25 11:00 01/31/25 15:45 100 MLS/HR Examination General examination- HEENT- PEERLA, no acute nasal discharge Cardiovascular- S1-S2 audible, rate and rhythm regular, no murmur Respiratory- CTAB, no wheeze or rhonchi Gastrointestinal-nontender, bowel sound+. Nondistended Musculoskeletal-no acute joint swelling or tenderness or redness Lower extremity- right foot ulcer with a black eschar on the medial and inferior surface of the foot, with redness and skin excoriation of the rest of the foot Neurological- cranial nerves intact, no acute dysarthria or dysphagia Psychiatry- denies depression or SI or HI Skin- right foot ulcer with a black eschar on the medial and inferior surface of the foot, with redness and skin excoriation of the rest of the foot laboratory and microbiology Laboratory Tests 01/31/25 06:00 Test 01/31/25 06:00 Range/Units Serum Glucose 90 74-106 mg/dL Microbiology Date/Time Source Procedure Growth Status 01/30/25 18:49 Foot Right Gram Stain Pending Resulted 01/30/25 18:49 Foot Right Wound Culture - Preliminary Resulted 01/30/25 11:20 Voided Urine Urine Culture - Preliminary Resulted 01/28/25 14:17 Blood Blood Culture - Preliminary NO GROWTH AFTER 72 HOURS OF INCUBATION. Resulted Problem List/Assessment/Plan Problem List/Assessment/Plan Assessment and plan-CT abdomen and pelvis revealed moderate ascites, cirrhotic liver. Colonic diverticulosis, small bilateral pleural effusion with overlying compressive atelectasis. Patient was seen by vascular surgeon lory Chowdhury-Awaiting CTA of the abdomen and pelvis with bilateral lower extremity. Would recommend reviewing this CTA prior to podiatry debriding the foot in case revascularization is necessary. Patient was also seen by Podiatry Dr. Gracia recommendedincision and drainage with possible heel bone biopsy and calcanectomy, -patient will be NPO at midnight. Provider informed Dr. Gracia about vascular surgeon's recommendation. Patient with Wernicke encephalopathy. Started thiamine 500 mg IV t.i.d for 2 days. Treatment will follow Sepsis likely due to right foot cellulitis right foot ulcer with a black eschar on the medial and inferior surface of the foot, with redness and skin excoriation of the rest of the foot\ Right foot cellulitis with a blackish care Necrotizing soft tissue infection of the right foot Right foot abscess Right foot wake gangrene Right foot osteomyelitis Severe anemia Acute retention of urine likely due to BPH Metabolic encephalopathy/toxic encephalopathy Suspected Wernicke's encephalopathy Peripheral arterial disease Severe vasculopathy BPH Hyperlipidemia Hypertension Plan Blood culture negative Wound culture many Gram-negative rods Pending CT scan of the abdomen and pelvis Pending CT scan of the head with the contrast Continue cefepime and vancomycin as prescribed Continue IV fluid as prescribed Continue pain medication as prescribed Pantoprazole as prescribed Tamsulosin 0.4 mg p.o. daily Cilostazol 100 mg p.o. b.i.d. Atorvastatin 80 mg p.o. HS Aspirin 81 mg p.o. daily Continue thiamine and folic acid as prescribed lory Chowdhury-Awaiting CTA of the abdomen and pelvis with bilateral lower extremity. Would recommend reviewing this CTA prior to podiatry debriding the foot in case revascularization is necessary. Patient was also seen by Podiatry Dr. Gracia recommendedincision and drainage with possible heel bone biopsy and calcanectomy, -patient will be NPO at midnight. Provider informed Dr. Gracia about vascular surgeon's recommendation. Goals of care, Code status ; discussed with >15 minutes PUD prophylaxis: Pantoprazole DVT prophylaxis: Patient was severe anemia Plan discussed with Dr. Cotton , nursing staff, Total time spent on patient evaluation, chart review, assessment and plan, discussion discussion >35 minutes Plan discussed with: Patient, Daughter, Other (RN) My Orders My Orders Orders - BILLY MORENO Procedure Category Date Status Time Apply Barrier Cream DELROY 01/30/25 In Process 14:00 * Dietary Consult CONS 01/30/25 Transmitted 17:32 Wound Culture W/ Gs RON 01/30/25 In Process 18:47 Nutritional PHA 01/31/25 In Process Supplements (Ensure 12:00 Consult CONS 01/31/25 Transmitted Vascular/Endovascular 11:22 Notify Provider NOTICE 01/31/25 Transmitted Malnutrition 11:32 Nutritional NOURISH 01/31/25 Transmitted Supplements 11:32 Increase Calorie NOURISH 01/31/25 Transmitted Intake 11:32 Multiple Vitamin W PHA 02/01/25 In Process Mineral Tab (Mvi W/ M 10:00 Thiamine Inj PHA 01/31/25 In Process 14:00 Complete Blood Count LAB 02/01/25 Verified 04:00 Creatinine LAB 02/01/25 Verified 04:00 Vancomycin,Trough LAB 02/02/25 Verified 19:00 Vancomycin Per [facility] 01/31/25 In Process Pharmacy Protoc 14:43 Dietary Evaluation Review Recommendations by RD: Increase Calorie Intake, Protein Supplementation Comments: 1) Ensure Enlive 240ml QID (ordered per [facility] protocol) 2) Jose A 1 pk BID (ordered per [facility] protocol) 3) Continue current POC Expected Outcomes/Goals: wound healing to improve to meet 75% estimated energy & protein needs fu 3-5 days Interpretation of weight loss: >10% in 6 months Fluid Accumulation (Non Severe: Mild fluid retention Protein Calorie Malnutrition: Severe Is there a minimum of two crit: Yes CC Plasma Assessment Blood Product Administration S: [id number] Date of Service: Jan 31, 2025 Billing Provider: DOLORES KAT MD Common Visit Codes: [id number] INP/OBS CARE(HIGH) BILLY MORENO Jan 31, 2025 16:35 DOLORES KAT MD Feb 01, 2025 00:36
[2025-01-31] MEDS: SODIUM CHLORIDE 0.9% 1,000 ML IV ONE ×2 (17:56→22:55)
[2025-01-31 23:41] LABS: Basophils # (auto) 0 10 ^3/uL (0-0.2); Basophils % (auto) 0.2 % (0.0-2.0); Eosinophils # (auto) 0.1 10 ^3/uL (0-0.8); Eosinophils % (auto) 0.5 % (0.0-7.0); Hematocrit 26.2 % (41.0-53.0); Lymphocytes # (auto) 1.2 10 ^3/uL (0.4-5.4); Lymphocytes % (auto) 9.2 % (10.0-50.0); Mean Corpuscular Hemoglobin 25.9 pg (28.0-32.0); Mean Corpuscular Hgb Conc. 30.5 g/dL (32.0-36.0); Mean Corpuscular Volume 84.8 fL (80.0-100.0); Monocytes # (auto) 1.2 10 ^3/uL (0-1.3); Monocytes % (auto) 9.1 % (0.0-12.0); Neutrophils # (auto) 10.7 10 ^3/uL (1.6-8.6); Platelet Count (auto) 337 10^3/uL (140-450); Red Blood Cells 3.09 10^6/uL (4.5-5.90); Red Cell Distribution Width 18.1 % (11.8-14.3); White Blood Cell 13.2 10^3/uL (4.4-10.8)
[2025-01-31 23:56] LABS: INR 1.19 (0.9-1.15); Partial Thromboplastin Time 29.8 SEC (24.5-34.5); Prothrombin Time 12.4 sec (9.3-11.8)
[2025-01-31 23:58] LABS: Alkaline Phosphatase 78 U/L (46-116); Anion Gap 9 (5-15); BUN/Creatinine Ratio 27.3 (10.0-20.0); Bilirubin, Total 0.3 mg/dL (0.2-1.0); Blood Urea Nitrogen 15 mg/dL (9-23)
[2025-02-01] VITALS (9 sets, daily range): BP systolic 83–160; BP diastolic 39–69; PULSE 86–113; RESP 15–20; TEMP 98–98.6; O2SAT 93–100
[2025-02-01 00:01] LABS: Potassium 3.3 mmol/L (3.5-5.1); Sodium 136 mmol/L (136-145)
[2025-02-01 00:02] LABS: Alanine Aminotransferase 51 U/L (7-40); Albumin 2.5 g/dL (3.2-4.8); Aspartate Aminotransferase 209 U/L (13-40); Calcium 7.3 mg/dL (8.7-10.4); Carbon Dioxide 18 mmol/L (20-31); Chloride 109 mmol/L (98-107); Glucose 148 mg/dL (74-106); Total Protein 5.6 g/dL (5.7-8.2)
[2025-02-01] MEDS: SODIUM CHLORIDE 0.9% 500 ML IV ONE (00:27)
[2025-02-01 06:08] LABS: Basophils # (auto) 0 10 ^3/uL (0-0.2); Basophils % (auto) 0.1 % (0.0-2.0); Hemoglobin 7.5 g/dL (13.5-17.5); Nucleated Red Blood Cells % 0.1 %
[2025-02-01 06:12] LABS: Eosinophils # (auto) 0.1 10 ^3/uL (0-0.8); Eosinophils % (auto) 0.5 % (0.0-7.0); Hematocrit 23.6 % (41.0-53.0); Lymphocytes # (auto) 0.9 10 ^3/uL (0.4-5.4); Lymphocytes % (auto) 7.9 % (10.0-50.0); Mean Corpuscular Hemoglobin 26.3 pg (28.0-32.0); Mean Corpuscular Hgb Conc. 31.9 g/dL (32.0-36.0); Mean Corpuscular Volume 82.6 fL (80.0-100.0); Monocytes % (auto) 8.1 % (0.0-12.0); Neutrophils % (auto) 83.4 % (37.0-80.0); Platelet Count (auto) 318 10^3/uL (140-450); Red Blood Cells 2.86 10^6/uL (4.5-5.90)
[2025-02-01 06:34] LABS: Alkaline Phosphatase 72 U/L (46-116); Anion Gap 8 (5-15); BUN/Creatinine Ratio 35.2 (10.0-20.0); Blood Urea Nitrogen 19 mg/dL (9-23); Magnesium 1.7 mg/dL (1.6-2.6)
[2025-02-01 06:35] LABS: Bilirubin, Total 0.5 mg/dL (0.2-1.0)
[2025-02-01 06:43] LABS: Alanine Aminotransferase 50 U/L (7-40); Albumin 2.4 g/dL (3.2-4.8); Aspartate Aminotransferase 184 U/L (13-40); Calcium 7.6 mg/dL (8.7-10.4); Carbon Dioxide 19 mmol/L (20-31); Chloride 109 mmol/L (98-107); Glucose 127 mg/dL (74-106); Potassium 3.2 mmol/L (3.5-5.1); Sodium 136 mmol/L (136-145); Total Protein 5.4 g/dL (5.7-8.2)
[2025-02-01] MEDS: POTASSIUM CHL 20 Meq TABLET PO ONE (08:17)
[2025-02-01] MEDS: MULTIPLE VITAMINS W/ MINERALS TAB PO SCH (10:33)
--- NOTE | 2025-02-01 19:11 | DVHPNRES ---
Progress Note Date Seen: Feb 01, 2025 Resident Creating Document: BILLY MORENO Medical Necessity Reason Pt with a Central, PICC or Fol: No The following are medically ne: Aviles Catheter Subjective Review of Systems This is a 64-year-old cachectic male with PMH of HTN, PAD, A-Fib, BPH, vasculopathy, Gdyh-cm-npggghow stenosis of the juxtarenal abdominal aorta. Ldkm-ta-lvvebsru stenosis of the superior mesenteric. 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 Qias-oj-pzfxqxao stenosis of the left renal artery. High- grade stenosis or occlusion of the proximal right common iliac artery. and recent bilateral lower extremity stent placement presents to ED with chief complaint of generalized weakness since he left rehab center three days ago. He had his blood drawn at the rehab center for which has showed hemoglobin of 5.9. The patient was instructed to go to the nearest ER for blood transfusion. He denied bloody stool and hematemesis. He denies taking anticoagulant. The patient reports heavy alcohol abuse quit four months ago. The patient hemoglobin found to be 5.4 with lactic acid 4.3. UDS negative, serum alcohol< 3.0. . Upon evaluating patient in ER bed 12, notable foul odor noted to his right foot with dressing in place. The dressing was saturated removed and multiple open sores with pus were present. The patient states that his right leg wound has been dressed two days ago and currently under treatment without being prescribed any antibiotics. The patient is currently receiving packed red blood cell transfusion. The patient is concerned about his symptoms and would like to be further evaluated and treated. The patient will be admitted under hospitalist care to the telemetry unit for continuous monitoring. The patient denies fever, chills, headache, dizziness, palpitation, chest pain, nausea, vomiting, abdominal pain, diarrhea, constipation and other associated symptoms. The plan has been discussed with the patient in which all questions concerns have been addressed. Initial lab workup revealed leukocytosis with WBC 17.4, severe anemia with a hemoglobin 5.4. UDS negative, serum alcohol< 3.0. CXR-No pulmonary airspace consolidation. Ultrasound of the abdomen revealed- Atrophic right kidney. Distended bladder with debris. Gallbladder sludge.Bladder volume measures 1848 cc. Doppler study of the lower extremity negative for DVT. Arterial Doppler of the lower extremity revealed no flow seen in the right distal superficial femoral artery, right anterior tibial and dorsalis pedis artery. CT abdomen and pelvis revealed moderate ascites, cirrhotic liver. Colonic diverticulosis, small bilateral pleural effusion with overlying compressive atelectasis. CT head negative for acute intracranial abnormality. CT abdomen and pelvis revealed moderate ascites, cirrhotic liver. Colonic diverticulosis, small bilateral pleural effusion with overlying compressive atelectasis PMH-HTN, PAD, BPH, Aluq-oc-ibahcjgi stenosis of the juxtarenal abdominal aorta. Ahli-vi-ryjkeros stenosis of the superior mesenteric. 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 Fkkb-ki-yyeqotgc stenosis of the left renal artery. High- grade stenosis or occlusion of the proximal right common iliac artery. PSH- status post bilateral lower extremity stent Allergy- Personal History/ Social History- history of alcoholism but exacerbation patient did not drink alcohol last couple of months when he was in rehab. Patient was seen today at the bedside. Patient Cardiovascular- deny acute chest pain or shortness of breath or cough or palpitation Respiratory denies cough or short of breath or wheezing Gastrointestinal- denies any rectal bleeding, nausea or vomiting Musculoskeletal-denies acute joint swelling or tenderness or redness Neurological- denies acute dysarthria, dysphagia, change in vision Psychiatry- denies depression or SI or HI Skin- denies acute rash or purpura Patient was seen today for clinical evaluation. Labs and chart reviewed. Patient is due for CT angio with runoff tomorrow a.m.. Patient on antibiotic cefepime and vancomycin. Wound culture revealed E coli, MRSA, Pseudomonas aeruginosa, Providencia stuartii. Blood culture no growth. Objective vital signs Vital Sign Date Time Temp Pulse Resp B/P (MAP) Pulse Ox O2 Delivery O2 Flow Rate FiO2 02/01/25 17:29 98.3 90 20 131/64 (86) 97 98.3 02/01/25 08:00 Room Air* 0 21 Total Intake and Output 01/31/25 01/31/25 02/01/25 15:00 23:00 07:00 Intake Total 400 ml 1150 ml Output Total 450 ml 500 ml Balance 400 ml 700 ml -500 ml medications Current Medications Medications Dose Ordered Sig/Omar Route Start Time Stop Time Status Last Admin Dose Admin Acetaminophen/ Hydrocodone Bitart 1 tab Q4HP PRN PO 01/28/25 19:00 02/01/25 13:39 1 TAB Zinc Sulfate 220 mg DAILY PO 01/29/25 10:00 02/01/25 10:33 220 MG Ascorbic Acid 500 mg BID PO 01/28/25 22:00 02/01/25 10:33 500 MG Acetaminophen 650 mg Q6HP PRN PO 01/28/25 19:00 Nitroglycerin 0.4 mg Q5MINP PRN SL 01/28/25 19:00 Morphine Sulfate 2 mg Q30M PRN IV 01/28/25 19:00 01/29/25 13:03 2 MG Pantoprazole Sodium 40 mg DAILY IV 01/29/25 10:00 02/01/25 10:33 40 MG Aspirin 81 mg DAILY PO 01/29/25 10:00 Hold 01/31/25 10:49 81 MG Atorvastatin Calcium 80 mg HS PO 01/28/25 22:00 01/31/25 20:52 80 MG Cilostazol 100 mg BID PO 01/28/25 22:00 02/01/25 10:36 100 MG Minoxidil 5 mg DAILY PO 01/29/25 10:00 01/31/25 10:52 5 MG Nicotine 1 patch DAILY TD 01/29/25 10:00 02/01/25 10:34 1 PATCH Tamsulosin HCl 0.4 mg DAILY PO 01/29/25 10:00 Hold 01/31/25 10:53 0.4 MG Cefepime HCl 50 ml @ 12.5 mls/hr Q12HR IV 01/29/25 22:00 02/01/25 10:34 12.5 MLS/HR Vancomycin HCl 0 ml @ 0 mls/hr UD IV 01/29/25 15:00 Vancomycin HCl 250 ml @ 200 mls/hr Q12H IV 01/29/25 20:00 02/01/25 08:17 200 MLS/HR Haloperidol Lactate 5 mg Q8HP PRN IM 01/29/25 17:00 01/30/25 22:01 5 MG Lactulose 30 ml BIDPRN PRN PO 01/30/25 08:00 Folic Acid 1 mg/ Dextrose 50.2 ml @ 200.8 mls/ hr DAILY INJ 01/31/25 10:00 UNV Folic Acid 1 mg DAILY PO 01/31/25 10:00 02/01/25 10:33 1 MG Enteral Nutritional Formula 240 ml QID PO 01/31/25 12:00 01/31/25 18:23 240 ML Multivitamins/ Minerals 1 tab DAILY PO 02/01/25 10:00 02/01/25 10:33 1 TAB Thiamine HCl 500 mg/Dextrose 55 ml @ 100 mls/hr Q8H IV 01/31/25 21:30 02/02/25 06:02 02/01/25 13:40 100 MLS/HR Examination General examination- patient is awake , alert HEENT- PEERLA, no acute nasal discharge Cardiovascular- S1-S2 audible, rate and rhythm regular, no murmur Respiratory- CTAB, no wheeze or rhonchi Gastrointestinal-nontender, bowel sound+. Nondistended Musculoskeletal-no acute joint swelling or tenderness or redness Lower extremity- right foot ulcer with a black eschar on the medial and inferior surface of the foot, with redness and skin excoriation of the rest of the foot Neurological- cranial nerves intact, no acute dysarthria or dysphagia Psychiatry- denies depression or SI or HI Skin- right foot ulcer with a black eschar on the medial and inferior surface of the foot, with redness and skin excoriation of the rest of the foot laboratory and microbiology Laboratory Tests 02/01/25 04:55 Test 02/01/25 04:55 Range/Units Serum Glucose 127 H 74-106 mg/dL Microbiology Date/Time Source Procedure Growth Status 01/30/25 18:49 Foot Right Gram Stain - Final Resulted 01/30/25 18:49 Wound Culture - Preliminary Pseudomonas aeruginosa Resulted 01/30/25 11:20 Voided Urine Urine Culture - Final Complete 01/28/25 14:17 Blood Blood Culture - Preliminary NO GROWTH AFTER 72 HOURS OF INCUBATION. Resulted Problem List/Assessment/Plan Problem List/Assessment/Plan Assessment and plan-pending CTA aorta with a run off Sepsis likely due to right foot cellulitis right foot ulcer with a black eschar on the medial and inferior surface of the foot, with redness and skin excoriation of the rest of the foot\ Right foot cellulitis with a blackish care Necrotizing soft tissue infection of the right foot Right foot abscess Right foot wake gangrene Right foot osteomyelitis Severe anemia Acute retention of urine likely due to BPH Metabolic encephalopathy/toxic encephalopathy Suspected Wernicke's encephalopathy Peripheral arterial disease A-Fib Severe vasculopathy BPH Hyperlipidemia Hypertension Plan Blood culture negative Wound culture revealed E coli, MRSA, Pseudomonas aeruginosa, Providencia stuartii. CT abdomen and pelvis revealed moderate ascites, cirrhotic liver. Colonic diverticulosis, small bilateral pleural effusion with overlying compressive atelectasis Continue cefepime and vancomycin as prescribed Continue pain medication as prescribed Pantoprazole as prescribed Tamsulosin 0.4 mg p.o. daily Cilostazol 100 mg p.o. b.i.d. Atorvastatin 80 mg p.o. HS Aspirin 81 mg p.o. daily Continue thiamine as prescribed Continue folic acid as prescribed Goals of care, Code status ; discussed with >15 minutes PUD prophylaxis: Pantoprazole DVT prophylaxis: Patient was severe anemia Plan discussed with Dr. Cotton , nursing staff, Total time spent on patient evaluation, chart review, assessment and plan, discussion discussion >35 minutes Plan discussed with: Patient, Spouse (RN), Daughter, Other My Orders My Orders Orders - BILLY MORENO Procedure Category Date Status Time Thiamine Inj PHA 01/31/25 In Process 21:30 2 Gm Sodium Diet DIET 02/01/25 Transmitted Lunch Communication Order ORDERS 02/01/25 Transmitted 10:53 Dietary Evaluation Review Recommendations by RD: Increase Calorie Intake, Protein Supplementation Comments: 1) Ensure Enlive 240ml QID (ordered per [facility] protocol) 2) Jose A 1 pk BID (ordered per [facility] protocol) 3) Continue current POC Expected Outcomes/Goals: wound healing to improve to meet 75% estimated energy & protein needs fu 3-5 days Interpretation of weight loss: >10% in 6 months Fluid Accumulation (Non Severe: Mild fluid retention Protein Calorie Malnutrition: Severe Is there a minimum of two crit: Yes CC Plasma Assessment Blood Product Administration S: 2151 Date of Service: Feb 01, 2025 Billing Provider: DOLORES KAT MD Common Visit Codes: [id number] INP/OBS CARE(HIGH) BILLY MORENO Feb 01, 2025 19:11 DOLORES KAT MD February 11, 2025 21:29
[2025-02-02] VITALS (8 sets, daily range): BP systolic 127–146; BP diastolic 47–72; PULSE 87–107; RESP 16–20; TEMP 98–100.6; O2SAT 87–99
[2025-02-02 07:22] LABS: Basophils # (auto) 0 10 ^3/uL (0-0.2); Basophils % (auto) 0.1 % (0.0-2.0); Eosinophils # (auto) 0.1 10 ^3/uL (0-0.8); Eosinophils % (auto) 1.2 % (0.0-7.0); Hemoglobin 7.5 g/dL (13.5-17.5); Lymphocytes % (auto) 9.1 % (10.0-50.0); Mean Corpuscular Hemoglobin 26.7 pg (28.0-32.0); Mean Corpuscular Hgb Conc. 32.6 g/dL (32.0-36.0); Mean Corpuscular Volume 81.9 fL (80.0-100.0); Monocytes % (auto) 9.1 % (0.0-12.0); Neutrophils # (auto) 8.6 10 ^3/uL (1.6-8.6); Neutrophils % (auto) 80.5 % (37.0-80.0); Platelet Count (auto) 283 10^3/uL (140-450); Red Blood Cells 2.81 10^6/uL (4.5-5.90); Red Cell Distribution Width 19.1 % (11.8-14.3); White Blood Cell 10.7 10^3/uL (4.4-10.8)
[2025-02-02 07:23] LABS: Alkaline Phosphatase 63 U/L (46-116); Anion Gap 6 (5-15); BUN/Creatinine Ratio 27.8 (10.0-20.0); Blood Urea Nitrogen 10 mg/dL (9-23); Carbon Dioxide 22 mmol/L (20-31); Chloride 106 mmol/L (98-107)
[2025-02-02 07:24] LABS: Bilirubin, Total 0.5 mg/dL (0.2-1.0)
[2025-02-02 07:34] LABS: Alanine Aminotransferase 50 U/L (7-40); Albumin 2.4 g/dL (3.2-4.8); Aspartate Aminotransferase 158 U/L (13-40); Calcium 7.4 mg/dL (8.7-10.4); Glucose 114 mg/dL (74-106); Potassium 3.1 mmol/L (3.5-5.1); Sodium 134 mmol/L (136-145); Total Protein 5.3 g/dL (5.7-8.2)
[2025-02-02] MEDS: IOHEXOL 350 MG/ML 100ML IJ ONE (09:44)
[2025-02-02] MEDS ORDERED: THIAMINE 100mg/ml INJ (200mg/2ml VIAL) IV SCH (10:00)
[2025-02-02] MEDS ORDERED: POTASSIUM CHL 20MEQ/100ML 100 ML IV SCH (10:00)
--- NOTE | 2025-02-02 12:41 | DVH ---
Examination: CT CT ANGIO ABD AORTA W RUN OFF CLINICAL HISTORY: PERIPHERAL VASCULAR DISEASE Comparison: None Technique: Using helical technique, CT data from the lower abdomen through the toes was obtained duri ng rapid IV contrast infusion of 100 cc Omni 350. The examination was timed to the arterial system to generate a CT angiographic study. 3D images were generated at an independent work station. Dose redu ction techniques included automated exposure control. Radiation Dose Information: CT Dose: CTDI volume is 7.22 mGy. Dose-length product is 954.73 mGy*cm Findings: Abdominal aorta: Calcified plaque partially imaged resulting in a [id number], approximately 50% stenosis. No abdominal aortic aneurysm. NORA: Patent Right lower extremity: Limited evaluation due to positioning. Common iliac artery: Dense calcified plaque proximally resulting in high-grade stenosis or focal occl usion. External iliac artery: Diffuse snqy-hb-lppmxtvt stenosis. Internal iliac artery: Patent Common femoral artery: Fgil-oe-icuhwqmm stenosis distally. Profunda femoral artery: High-grade stenosis or focal occlusion proximally. Superficial femoral artery: Occluded distally. Popliteal artery: Occluded Anterior tibial artery: Patent Peroneal tibial trunk: Densely calcified Peroneal artery: Patent Posterior tibial artery: Occluded Dorsalis pedis artery: Patent Left lower extremity: Common iliac artery: Moderate high-grade stenosis proximally. External iliac artery: Patent Internal iliac artery: Patent Common femoral artery: Moderate stenosis in the midportion. Profunda femoral artery: Patent Superficial femoral artery: High-grade stenosis or focal occlusion proximally. Occluded distally. Popliteal artery: Occluded Anterior tibial artery: Patent Peroneal tibial trunk: Densely calcified Peroneal artery: Patent Posterior tibial artery: Patent Dorsalis pedis artery: Patent Pelvis: Bladder: Decompressed with a Aviles catheter. GI System: Large amount of stool in the colon. No evidence of obstruction. Appendix not identified. Lymph nodes: No lymphadenopathy. Peritoneal cavity and surface: Moderate pelvic ascites. No pneumoperitoneum. Soft Tissues: Anasarca Reproductive Organs: Unremarkable. Bones: No acute fracture or aggressive osseous lesion. Impression: Vascular: 1. Advanced atherosclerotic disease. Qedr-og-vexlsqae stenosis of the infrarenal abdominal aorta par tially imaged. Right Lower Extremity: Limited by positioning. 1. High-grade stenosis or focal occlusion of the proximal right common iliac artery. 2. Occluded right superficial femoral and popliteal arteries. 3. 2-vessel runoff to the right foot via the anterior tibial and peroneal arteries. Left Lower Extremity: 1. Moderate high-grade stenosis of the left common iliac artery. 2. Occluded distal left superficial femoral artery and popliteal arteries. 3. Patent 3 vessel runoff Pelvis: 1. No acute pelvic process. Ascites. HS:Y
[2025-02-02] MEDS: POTASSIUM CHL 20MEQ/50ML 50 ML IV SCH (13:21)
[2025-02-02] MEDS: SODIUM CHL 0.9% 50 ML IV SCH (13:21)
[2025-02-02] MEDS: Ensure HIGH Protein Chocolate 8oz Bottle PO SCH (14:23)
[2025-02-02] MEDS: ENOXAPARIN SOD 60 MG/0.6 ML SYRINGE SC ONE (14:45)
[2025-02-02] MEDS: SUCRALFATE 1 GM TAB PO ONE (15:29)
[2025-02-02] MEDS: METOPROLOL TARTRATE 25 MG TAB PO ONE (15:29)
[2025-02-02] MEDS: MAGNESIUM SULFATE 1GM/100ML 100 ML IV ONE (15:30)
--- NOTE | 2025-02-02 16:55 | DVHINCON2 ---
[facility] 02/02/25 1655: Date Seen: Feb 02, 2025 Referring Physician MD Yury Reason for Consultation New onset Atrial fibrillation History of Present Illness This is a 64 year old male patient who presents to the emergency room with chief complaint of generalized weakness and bilateral lower extremity pain/wounds. While in the emergency room the patient was noted to have severe anemia requiring packed red blood cell transfusion. Cardiology has been consulted at this time for new onset atrial fibrillation. Initial twelve lead electrocardiogram reveals accelerated junctional rhythm with prolonged QTc interval. After reviewing surveillance system monitor patient noted to go into episodes of what appears to be SVT, but could possibly be atrial fibrillation. Patient also noted to have episodes of nonsustained V-tach. The patient denies any cardiac symptoms at time of assessment. Significant past medical history includes hypertension, peripheral arterial disease status post stent in left and right extremity, hepatitis-C, alcohol abuse, and BPH. Past Medical History Past medical history reviewed. No other significant than mentioned above. Past Surgical History Stent placement in bilateral lower extremity Family History: FH: cancer G8 MOTHER FH: lung cancer G8 FATHER Hepatitis C 19 CHILD Family History Family history reviewed. Social History Patient has a 53 pack-year history Patient admits to drinking six beers per day Denies illicit drug use Allergies: Coded Allergies: NO KNOWN ALLERGIES (Unverified , 09/30/24) Home Meds Active Scripts Tamsulosin Hcl (Tamsulosin Hcl) 0.4 Mg Cap, 2 CAP PO DAILY, #60 CAP 5 [facility] 10/04/24 Cilostazol (Cilostazol) 100 Mg Tab, 1 TAB PO BID, #60 TAB 5 [facility] 10/04/24 Nicotine (Nicoderm 21MG/24HR) 1 Patch Ph, 1 PATCH TD DAILY for 30 Days, #30 PATCH Prov:[facility] 10/04/24 Minoxidil (Loniten) 2.5 Mg Tb, 5 MG PO DAILY for 30 Days, #60 TAB [facility] 10/04/24 Lisinopril (Lisinopril) 5 Mg Tab, 5 MG PO DAILY for 30 Days, #30 TAB [facility] 10/04/24 Hydralazine HCl (Hydralazine HCl) 25 Mg Tab, 50 MG PO Q8HR for 30 Days, #180 TAB Prov:BRANDI HOPPER 10/04/24 Atorvastatin Calcium (ATORVASTATIN CALCIUM) 20 Mg Tab, 80 MG PO HS for 30 Days, #120 TAB Prov:BRANDI HOPPER [facility] 10/04/24 Aspirin (Aspirin Low Dose) 81 Mg Tab, 81 MG PO DAILY for 30 Days, #30 TAB Prov:BRANDI HOPPER 10/04/24 Home Meds Home medications reviewed. Current Medications Current Medications Medications (Trade) Dose Ordered Sig/Omar Route PRN Reason Start Time Stop Time Status Last Admin Potassium Chloride 100 ml @ 50 mls/hr Q2H IV 02/02/25 10:00 02/02/25 10:06 DC Enteral Nutritional Formula (Ensure High Protein) 240 ml TID PO 02/02/25 14:00 02/02/25 14:23 Thiamine HCl 250 mg ONCE IV 02/02/25 10:00 02/02/25 10:14 DC Potassium Chloride 50 ml @ 25 mls/hr Q2H IV 02/02/25 10:15 02/02/25 16:14 DC 02/02/25 15:24 Sodium Chloride 50 ml @ 25 mls/hr Q2H IV 02/02/25 10:15 02/02/25 16:14 DC 02/02/25 15:23 Thiamine HCl 250 mg DAILY IV 02/03/25 10:00 02/08/25 09:59 UNV Thiamine HCl 250 mg/Dextrose 52.5 ml @ 100 mls/hr DAILY IV 02/03/25 10:00 02/07/25 10:32 Metoprolol Tartrate (Lopressor Tablet) 12.5 mg BID PO 02/02/25 22:00 Enoxaparin Sodium (Lovenox) 60 mg DAILY SC 02/03/25 10:00 UNV Pantoprazole Sodium (Protonix) 40 mg BID IV 02/02/25 22:00 Sucralfate (Carafate Tab) 1 gm QIDACHS PO 02/02/25 22:00 Review of Systems Constitutional: Generalized weakness Ears, Nose, & Throat: No symptom reported Eyes: No symptom reported Neurological: No symptoms reported Pulmonary/Respiratory: No symptoms reported Cardiovascular: No symptom reported Gastrointestinal: No symptom reported Genitourinary: No symptom reported Musculoskeletal: No symptom reported Skin: Bilateral lower extremity wounds and pain Psychiatric: No symptom reported Endocrine: No symptom reported Hematologic/Lymphatic: No symptom reported Vital Signs Vital Signs Date Time Temp Pulse Resp B/P (MAP) Pulse Ox O2 Delivery O2 Flow Rate FiO2 02/02/25 15:29 105 164/64 02/02/25 13:00 98.5 17 99 98.5 02/02/25 08:00 Room Air* 0 21 Physical Exam General Appearance: Cooperative. Well-developed. Well-nourished. No acute distress. Pulmonary/Respiratory: Clear, bilateral breaths sounds. Cardiovascular/Chest: Regular rate and rhythm. Peripheral Pulses: 2+ Radial (R). 2+ Radial (L). Abdominal Exam: Normal bowel sounds. Ankle Exam: Negative ankle edema Lower extremities: Negative lower extremity edema Neuro/Mental Status: A/OX3, coherent. Thoughts/Psych: Normal thought pattern. Appropriate mood and affect. Good judgment and insight. Appearance: No acute distress. Skin Exam: Necrosis to right foot, draining wound Labs/Diagnostic Data Labs Test 02/02/25 06:35 02/01/25 04:55 01/31/25 23:25 01/31/25 13:20 Range/Units White Blood Count 10.7 4.4-10.8 10^3/uL Red Blood Count 2.81 L 4.5-5.90 10^6/uL Hemoglobin 7.5 L 13.5-17.5 g/dL Hematocrit 23.0 L 41.0-53.0 % Mean Corpuscular Volume 81.9 80.0-100.0 fL Mean Corpuscular Hemoglobin 26.7 L 28.0-32.0 pg Mean Corpuscular Hemoglobin Concent 32.6 32.0-36.0 g/dL Red Cell Distribution Width 19.1 H 11.8-14.3 % Platelet Count 283 140-450 10^3/uL Mean Platelet Volume 7.3 6.9-10.8 fL Neutrophils (%) (Auto) 80.5 H 37.0-80.0 % Lymphocytes (%) (Auto) 9.1 L 10.0-50.0 % Monocytes (%) (Auto) 9.1 0.0-12.0 % Eosinophils (%) (Auto) 1.2 0.0-7.0 % Basophils (%) (Auto) 0.1 0.0-2.0 % Neutrophils # (Auto) 8.6 1.6-8.6 10 ^3/uL Lymphocytes # (Auto) 1.0 0.4-5.4 10 ^3/uL Monocytes # (Auto) 1.0 0-1.3 10 ^3/uL Eosinophils # (Auto) 0.1 0-0.8 10 ^3/uL Basophils # (Auto) 0 0-0.2 10 ^3/uL Nucleated Red Blood Cells 0.0 % Sodium Level 134 L 136-145 mmol/L Potassium Level 3.1 L 3.5-5.1 mmol/L Chloride Level 106 98-107 mmol/L Carbon Dioxide Level 22 20-31 mmol/L Anion Gap 6 5-15 Blood Urea Nitrogen 10 9-23 mg/dL Creatinine 0.36 L 0.700-1.30 mg/dL Glomerular Filtration Rate Calc 124 >90 mL/min BUN/Creatinine Ratio 27.8 H 10.0-20.0 Serum Glucose 114 H 74-106 mg/dL Calcium Level 7.4 L 8.7-10.4 mg/dL Total Bilirubin 0.5 0.2-1.0 mg/dL Aspartate Amino Transferase (AST) 158 H 13-40 U/L Alanine Aminotransferase (ALT) 50 H 7-40 U/L Alkaline Phosphatase 63 46-116 U/L Total Protein 5.3 L 5.7-8.2 g/dL Albumin 2.4 L 3.2-4.8 g/dL Magnesium Level 1.7 1.6-2.6 mg/dL Ammonia 21 11-32 umol/L Prothrombin Time 12.4 H 9.3-11.8 sec Prothrombin Time INR 1.19 H 0.9-1.15 Activated Partial Thromboplast Time 29.8 24.5-34.5 SEC Stool Occult Blood Positive Negative Stool Occult Blood Sample #3 Negative Test 01/31/25 06:00 01/30/25 15:00 01/30/25 12:14 01/30/25 11:20 Range/Units Vancomycin Level Trough 16.4 H 5-10 ug/mL Haptoglobin 288 32-363 mg/dL Lactate Dehydrogenase 278 H 120-246 U/L Urine Color Light-red Yellow Urine Clarity Cloudy H Clear Urine pH 6.0 5.0-9.0 Urine Specific [place] 1.014 1.001-1.035 Urine Protein 1+ H Negative Urine Ketones Negative Negative Urine Blood 3+ H Negative /uL Urine Nitrite Negative Negative Urine Bilirubin Negative Negative Urine Urobilinogen Normal Negative mg/dL Urine Leukocyte Esterase 1+ Negative /uL Urine RBC 7434 0 - 3 /hpf Urine Microscopic WBC 35 H 0-3 /HPF Urine Squamous Epithelial Cells Few <5 /hpf Urine Bacteria Few H None Seen /hpf Urine Mucus Few None Seen Urine Glucose Normal Normal mg/dL Urine Opiates Screen Neg NEGATIVE Urine Fentanyl Screen Neg NEGATIVE Urine Barbiturates Screen Neg NEGATIVE Urine Phencyclidine Screen Neg NEGATIVE Urine Amphetamines Screen Neg NEGATIVE Urine Benzodiazepines Screen Neg NEGATIVE Urine Cocaine Screen Neg NEGATIVE Urine Cannabinoids Screen Neg NEGATIVE Test 01/30/25 07:38 01/29/25 23:38 01/29/25 14:20 01/29/25 06:53 Range/Units Lactic Acid Level 1.1 0.4-2.0 mmol/L Reticulocyte Count (auto) 3.67 H 0.5-1.5 % Fibrinogen 385 H 177-375 mg/dL Iron Level 23 L 65-175 ug/dL Total Iron Binding Capacity 239 L 250-425 ug/dL Percent Iron Saturation 9.6 L 20-55 % Ferritin 42.6 22-322 ng/mL Plasma/Serum Blood Alcohol < 3.0 <10 mg/dL Hemoglobin A1c 5.3 <5.7 % A1C Vitamin B12 Level 972 H 211-911 pg/mL Folic Acid 8.67 >5.38 ng/mL Thyroid Stimulating Hormone (TSH) 3.97 0.55-4.78 uIU/mL Test 01/28/25 13:15 Range/Units Platelet Estimate Increased Polychromasia Slight Hypochromasia (manual) Slight Anisocytosis (manual) Slight Troponin I High Sensitivity 6 </=54 ng/L Microbiology Date/Time Source Procedure Growth Status 01/30/25 18:49 Foot Right Gram Stain - Final Resulted 01/30/25 18:49 Wound Culture - Preliminary Pseudomonas aeruginosa Resulted 01/30/25 11:20 Voided Urine Urine Culture - Final Complete 01/28/25 14:17 Blood Blood Culture - Final NO GROWTH AFTER 5 DAYS OF INCUBATION. Complete Assessment Atrioventricular roslyn reentry tachycardia Questionable atrial fibrillation Nonsustained ventricular tachycardia Peripheral arterial disease status post bilateral lower extremity stents Rule out structural heart disease Hypertension Hyperlipidemia Severe anemia requiring PRBC transfusion GI bleed with positive Hemoccult Hypokalemia Sepsis Right foot osteomyelitis Necrotizing wound to right foot Plan/Recommendation We will continue with the following plan/recommendations (Dr. Jett): Case reviewed and discussed with . Cardiac events reviewed with MD. Patient appears to have episodes of AV roslyn reentry tachycardia, likely SVT, but could possibly be atrial fibrillation. The patient also having episodes of nonsustained V-tach. We will recommend to continue with close cardiac surveillance. The patient presents with multiple issues such as severe anemia, sepsis, GI bleed and electrolyte imbalances which places the patient at high risk for arrhythmias. Proceed with obtaining a transthoracic echocardiogram to evaluate cardiac function. We will recommend to treat all underlying issues. Consider GI workup. Monitor and replete electrolytes as needed, keep potassium greater than four and magnesium greater than two. Continue with beta-kim for rate control as tolerated by blood pressure. Continue with close cardiac surveillance and monitor for arrhythmias. Thank you for allowing us to care for this patient. Please call with any questions or concerns. Critical care time spent: 44 minutes This medical document was created using an electronic medical record system with voice recognition software and computerized dictation system. Although this document has been carefully reviewed, there might still be some phonetic and typographical errors. Occasional wrong-word or ``sound-alike�� substitutions may have occurred due to the inherent limitations of voice recognition software. These areas are purely typographical due to imperfections of the software programs and do not reflect any compromise in the patient's medical care. Jamilah cartagena read the chart carefully and recognize, using context, where these substitutions have occurred. Plan discussed with: Patient NYHA Physical activity limitations: NA Date of Service: Feb 02, 2025 Billing Provider: [facility] Cardiology Common Codes: [id number] INP/OBS CARE (High) Cardiology Consultation Codes: [id number] CONSULT <45MIN IAN JETT DO 02/02/25 2320: Date Seen: Feb 02, 2025 Family History: FH: cancer G8 MOTHER FH: lung cancer G8 FATHER Hepatitis C 19 CHILD Allergies: Coded Allergies: NO KNOWN ALLERGIES (Unverified , 09/30/24) Home Meds Active Scripts Tamsulosin Hcl (Tamsulosin Hcl) 0.4 Mg Cap, 2 CAP PO DAILY, #60 CAP 5 Refills Prov:BRANDI HOPPER 10/04/24 Cilostazol (Cilostazol) 100 Mg Tab, 1 TAB PO BID, #60 TAB 5 [facility] 10/04/24 Nicotine (Nicoderm 21MG/24HR) 1 Patch Ph, 1 PATCH TD DAILY for 30 Days, #30 PATCH [facility] 10/04/24 Minoxidil (Loniten) 2.5 Mg Tb, 5 MG PO DAILY for 30 Days, #60 TAB [facility] 10/04/24 Lisinopril (Lisinopril) 5 Mg Tab, 5 MG PO DAILY for 30 Days, #30 TAB Prov:[facility] 10/04/24 Hydralazine HCl (Hydralazine HCl) 25 Mg Tab, 50 MG PO Q8HR for 30 Days, #180 TAB [facility] 10/04/24 Atorvastatin Calcium (ATORVASTATIN CALCIUM) 20 Mg Tab, 80 MG PO HS for 30 Days, #120 TAB [facility] 10/04/24 Aspirin (Aspirin Low Dose) 81 Mg Tab, 81 MG PO DAILY for 30 Days, #30 TAB [facility] 10/04/24 Plan/Recommendation The patient was discussed, seen, and examined with Tc Neely NP. I agree with her Assessment and Plan, which was formulated with me. Plan discussed with: Patient Date of Service: Feb 02, 2025 Cardiology Common Codes: [id number] INP/OBS CARE (High) [facility] Feb 02, 2025 16:55 IAN JETT DO Feb 02, 2025 23:20
[2025-02-02 17:07] LABS: Basophils # (auto) 0 10 ^3/uL (0-0.2); Basophils % (auto) 0.2 % (0.0-2.0); Eosinophils # (auto) 0.2 10 ^3/uL (0-0.8); Eosinophils % (auto) 1.3 % (0.0-7.0); Hemoglobin 8.7 g/dL (13.5-17.5); Lymphocytes # (auto) 1.2 10 ^3/uL (0.4-5.4); Lymphocytes % (auto) 7.1 % (10.0-50.0); Mean Corpuscular Volume 83.9 fL (80.0-100.0); Monocytes # (auto) 1.7 10 ^3/uL (0-1.3); Monocytes % (auto) 10.3 % (0.0-12.0); Neutrophils # (auto) 13.3 10 ^3/uL (1.6-8.6); Neutrophils % (auto) 81.1 % (37.0-80.0); Platelet Count (auto) 299 10^3/uL (140-450); Red Blood Cells 3.33 10^6/uL (4.5-5.90); Red Cell Distribution Width 19.2 % (11.8-14.3); White Blood Cell 16.4 10^3/uL (4.4-10.8)
--- NOTE | 2025-02-02 17:49 | DVHPNRES ---
Progress Note Date Seen: Feb 02, 2025 Resident Creating Document: BILLY MORENO Medical Necessity Reason Pt with a Central, PICC or Fol: No The following are medically ne: Aviles Catheter Subjective Review of Systems This is a 64-year-old cachectic male with PMH of HTN, PAD, BPH, vasculopathy, Gjqv-zl-neljsist stenosis of the juxtarenal abdominal aorta. Ahrz-yo-vxeghqqb stenosis of the superior mesenteric. 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 Ypcx-vx-wllqlgnz stenosis of the left renal artery. 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 and recent bilateral lower extremity stent placement presents to ED with chief complaint of generalized weakness since he left rehab center three days ago. He had his blood drawn at the rehab center for which has showed hemoglobin of 5.9. The patient was instructed to go to the nearest ER for blood transfusion. He denied bloody stool and hematemesis. He denies taking anticoagulant. The patient reports heavy alcohol abuse quit four months ago. The patient hemoglobin found to be 5.4 with lactic acid 4.3. UDS negative, serum alcohol< 3.0. . Upon evaluating patient in ER bed 12, notable foul odor noted to his right foot with dressing in place. The dressing was saturated removed and multiple open sores with pus were present. The patient states that his right leg wound has been dressed two days ago and currently under treatment without being prescribed any antibiotics. The patient is currently receiving packed red blood cell transfusion. The patient is concerned about his symptoms and would like to be further evaluated and treated. The patient will be admitted under hospitalist care to the telemetry unit for continuous monitoring. The patient denies fever, chills, headache, dizziness, palpitation, chest pain, nausea, vomiting, abdominal pain, diarrhea, constipation and other associated symptoms. The plan has been discussed with the patient in which all questions concerns have been addressed. Initial lab workup revealed leukocytosis with WBC 17.4, severe anemia with a hemoglobin 5.4. UDS negative, serum alcohol< 3.0. CXR-No pulmonary airspace consolidation. Ultrasound of the abdomen revealed- Atrophic right kidney. Distended bladder with debris. Gallbladder sludge.Bladder volume measures 1848 cc. Doppler study of the lower extremity negative for DVT. Arterial Doppler of the lower extremity revealed no flow seen in the right distal superficial femoral artery, right anterior tibial and dorsalis pedis artery. CT abdomen and pelvis revealed moderate ascites, cirrhotic liver. Colonic diverticulosis, small bilateral pleural effusion with overlying compressive atelectasis. CT head negative for acute intracranial abnormality. CT abdomen and pelvis revealed moderate ascites, cirrhotic liver. Colonic diverticulosis, small bilateral pleural effusion with overlying compressive atelectasis PMH-HTN, PAD, BPH, Erib-xv-ricrupxs stenosis of the juxtarenal abdominal aorta. Wuqf-bq-psoleayk stenosis of the superior mesenteric. 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 Scwp-pn-nmfldbrz stenosis of the left renal artery. High- grade stenosis or occlusion of the proximal right common iliac artery. PSH- status post bilateral lower extremity stent Allergy- Personal History/ Social History- history of alcoholism but exacerbation patient did not drink alcohol last couple of months when he was in rehab. Patient was seen today at the bedside. Patient Cardiovascular- deny acute chest pain or shortness of breath or cough or palpitation Respiratory denies cough or short of breath or wheezing Gastrointestinal- denies any rectal bleeding, nausea or vomiting Musculoskeletal-denies acute joint swelling or tenderness or redness Neurological- denies acute dysarthria, dysphagia, change in vision Psychiatry- denies depression or SI or HI Skin- denies acute rash or purpura Patient was seen today for clinical evaluation. Labs and chart reviewed. Patient is due for CT angio with run off revealed- Advanced atherosclerotic disease. Kqrk-lf-uhhpepae stenosis of the infrarenal abdominal aorta partially imaged. High-grade stenosis or focal occlusion of the proximal right common iliac artery. Occluded right superficial femoral and popliteal arteries. 2- vessel runoff to the right foot via the anterior tibial and peroneal arteries. Moderate high-grade stenosis of the left common iliac artery. Occluded distal left superficial femoral artery and popliteal arteries. Ascites. Patient on atrial fibrillation. Started carvedilol. Pending Echo 2D. Spoke to vascular surgeon Dr. Martinez, recommended arteriogram in label tacker on Thursday. Objective vital signs Vital Sign Date Time Temp Pulse Resp B/P (MAP) Pulse Ox O2 Delivery O2 Flow Rate FiO2 02/02/25 17:00 98.1 107 19 127/56 (79) 94 98.1 02/02/25 08:00 Room Air* 0 21 Total Intake and Output 02/01/25 02/01/25 02/02/25 15:00 23:00 07:00 Intake Total 700 ml 750 ml 350 ml Output Total 450 ml 1900 ml Balance 700 ml 300 ml -1550 ml medications Current Medications Medications Dose Ordered Sig/Omar Route Start Time Stop Time Status Last Admin Dose Admin Acetaminophen/ Hydrocodone Bitart 1 tab Q4HP PRN PO 01/28/25 19:00 02/02/25 05:50 1 TAB Ascorbic Acid 500 mg BID PO 01/28/25 22:00 02/02/25 09:54 500 MG Acetaminophen 650 mg Q6HP PRN PO 01/28/25 19:00 Nitroglycerin 0.4 mg Q5MINP PRN SL 01/28/25 19:00 Morphine Sulfate 2 mg Q30M PRN IV 01/28/25 19:00 01/29/25 13:03 2 MG Aspirin 81 mg DAILY PO 01/29/25 10:00 Hold 01/31/25 10:49 81 MG Atorvastatin Calcium 80 mg HS PO 01/28/25 22:00 02/01/25 21:16 80 MG Cilostazol 100 mg BID PO 01/28/25 22:00 02/02/25 09:54 100 MG Minoxidil 5 mg DAILY PO 01/29/25 10:00 01/31/25 10:52 5 MG Nicotine 1 patch DAILY TD 01/29/25 10:00 02/02/25 09:54 1 PATCH Tamsulosin HCl 0.4 mg DAILY PO 01/29/25 10:00 Hold 01/31/25 10:53 0.4 MG Cefepime HCl 50 ml @ 12.5 mls/hr Q12HR IV 01/29/25 22:00 02/02/25 09:52 12.5 MLS/HR Vancomycin HCl 0 ml @ 0 mls/hr UD IV 01/29/25 15:00 Vancomycin HCl 250 ml @ 200 mls/hr Q12H IV 01/29/25 20:00 02/02/25 09:52 200 MLS/HR Haloperidol Lactate 5 mg Q8HP PRN IM 01/29/25 17:00 01/30/25 22:01 5 MG Lactulose 30 ml BIDPRN PRN PO 01/30/25 08:00 Folic Acid 1 mg/ Dextrose 50.2 ml @ 200.8 mls/ hr DAILY INJ 01/31/25 10:00 UNV Folic Acid 1 mg DAILY PO 01/31/25 10:00 02/02/25 09:52 1 MG Multivitamins/ Minerals 1 tab DAILY PO 02/01/25 10:00 02/02/25 09:53 1 TAB Enteral Nutritional Formula 240 ml TID PO 02/02/25 14:00 02/02/25 14:23 240 ML Thiamine HCl 250 mg DAILY IV 02/03/25 10:00 02/08/25 09:59 UNV Thiamine HCl 250 mg/Dextrose 52.5 ml @ 100 mls/hr DAILY IV 02/03/25 10:00 02/07/25 10:32 Metoprolol Tartrate 12.5 mg BID PO 02/02/25 22:00 Enoxaparin Sodium 60 mg DAILY SC 02/03/25 10:00 UNV Pantoprazole Sodium 40 mg BID IV 02/02/25 22:00 Sucralfate 1 gm QIDACHS PO 02/02/25 22:00 laboratory and microbiology Laboratory Tests 02/02/25 16:55 02/02/25 06:35 Test 02/02/25 06:35 Range/Units Serum Glucose 114 H 74-106 mg/dL Microbiology Date/Time Source Procedure Growth Status 01/30/25 18:49 Foot Right Gram Stain - Final Resulted 01/30/25 18:49 Wound Culture - Preliminary Pseudomonas aeruginosa Resulted 01/30/25 11:20 Voided Urine Urine Culture - Final Complete 01/28/25 14:17 Blood Blood Culture - Final NO GROWTH AFTER 5 DAYS OF INCUBATION. Complete Problem List/Assessment/Plan Problem List/Assessment/Plan Assessment and plan-pending CTA aorta with a run off Sepsis likely due to right foot cellulitis right foot ulcer with a black eschar on the medial and inferior surface of the foot, with redness and skin excoriation of the rest of the foot\ Right foot cellulitis with a blackish care Necrotizing soft tissue infection of the right foot Right foot abscess Right foot wet gangrene Right foot osteomyelitis Severe anemia, S/P BT - pRBC Likely GI bleeding. FOBT Positive Acute retention of urine likely due to BPH Metabolic encephalopathy/toxic encephalopathy Suspected Wernicke's encephalopathy Peripheral arterial disease A-Fib/AV roslyn reentry tachycardia/paroxysmal SVT Severe vasculopathy BPH Hyperlipidemia Hypertension Ruled out UTI CT angio with run off revealed- Advanced atherosclerotic disease. Ywjr-nn-tntszdbf stenosis of the infrarenal abdominal aorta partially imaged. High-grade stenosis or focal occlusion of the proximal right common iliac artery. Occluded right superficial femoral and popliteal arteries. 2-vessel runoff to the right foot via the anterior tibial and peroneal arteries. Moderate high-grade stenosis of the left common iliac artery. Occluded distal left superficial femoral artery and popliteal arteries. Ascites. Patient on atrial fibrillation. Started carvedilol. Pending Echo 2D. Spoke to vascular surgeon Dr. Martinez, recommended arteriogram in label tacker on Thursday. Plan Blood culture negative Wound culture revealed E coli, MRSA, Pseudomonas aeruginosa, Providencia stuartii. CT abdomen and pelvis revealed moderate ascites, cirrhotic liver. Colonic diverticulosis, small bilateral pleural effusion with overlying compressive atelectasis 02/03/2024 CT angio with run off revealed- Advanced atherosclerotic disease. Xdpl-gs-cvtujffj stenosis of the infrarenal abdominal aorta partially imaged. High-grade stenosis or focal occlusion of the proximal right common iliac artery. Occluded right superficial femoral and popliteal arteries. 2-vessel runoff to the right foot via the anterior tibial and peroneal arteries. Moderate high-grade stenosis of the left common iliac artery. Occluded distal left superficial femoral artery and popliteal arteries. Ascites. Continue cefepime and vancomycin as prescribed Continue pain medication as prescribed Pantoprazole as prescribed Tamsulosin 0.4 mg p.o. daily Cilostazol 100 mg p.o. b.i.d. Atorvastatin 80 mg p.o. HS Aspirin 81 mg p.o. daily Metoprolol tartrate 12.5 mg p.o. b.i.d. Continue thiamine as prescribed Continue folic acid as prescribed Spoke to vascular surgeon Dr. Martinez, recommended arteriogram in label tacker on Thursday. Goals of care, Code status ; discussed with >15 minutes PUD prophylaxis: Pantoprazole DVT prophylaxis: Patient was severe anemia Plan discussed with Dr. Cotton , nursing staff, Total time spent on patient evaluation, chart review, assessment and plan, discussion discussion >35 minutes Plan discussed with: Patient, Daughter, Other My Orders My Orders Orders - BILLY MORENO RESIDENT Procedure Category Date Status Time Ct Angio Abd Aorta W CT 02/02/25 Resulted Run Off 06:00 Nutritional PHA 02/02/25 In Process Supplements (Ensure 14:00 Pharmacy [facility] 02/02/25 In Process Clarification: 23:59 Thiamine Inj PHA 02/03/25 In Process 10:00 Complete Blood Count LAB 02/03/25 Verified 04:00 Creatinine LAB 02/03/25 Verified 04:00 Pantoprazole PHA 02/02/25 In Process (Protonix) 22:00 Sucralfate Tab PHA 02/02/25 In Process (Carafate Tab) 22:00 Echo 2d Mode Cardiac US 02/02/25 Logged DOP 17:19 B-Type Natriuretic LAB 02/02/25 Logged Peptide 17:23 Dietary Evaluation Review Recommendations by RD: Increase Calorie Intake, Protein Supplementation Comments: 1) Ensure Enlive 240ml QID (ordered per [facility] protocol) 2) Jose A 1 pk BID (ordered per [facility] protocol) 3) Continue current POC Expected Outcomes/Goals: wound healing to improve to meet 75% estimated energy & protein needs fu 3-5 days Interpretation of weight loss: >10% in 6 months Fluid Accumulation (Non Severe: Mild fluid retention Protein Calorie Malnutrition: Severe Is there a minimum of two crit: Yes CC Plasma Assessment Blood Product Administration S: [id number] Date of Service: Feb 02, 2025 Billing Provider: DOLORES KAT MD Common Visit Codes: [id number] INP/OBS CARE(HIGH) BILLY MORENO RESIDENT Feb 02, 2025 17:49 DOLORES KAT MD February 11, 2025 22:27
[2025-02-02] MEDS: PANTOPRAZOLE 40 MG/10 ML VIAL INJ IV SCH (22:00)
[2025-02-02] MEDS: SUCRALFATE 1 GM TAB PO SCH (22:00)
[2025-02-02] MEDS: METOPROLOL TARTRATE 25 MG TAB PO SCH (23:06)
[2025-02-02] MEDS: ENOXAPARIN SOD 60 MG/0.6 ML SYRINGE SC SCH (23:24)
[2025-02-03] VITALS (10 sets, daily range): BP systolic 108–131; BP diastolic 49–62; PULSE 92–113; RESP 16–22; TEMP 97.5–99.2; O2SAT 90–98
[2025-02-03 09:01] LABS: Eosinophils # (auto) 0.1 10 ^3/uL (0-0.8); Hemoglobin 8.2 g/dL (13.5-17.5); Lymphocytes # (auto) 0.9 10 ^3/uL (0.4-5.4); Mean Corpuscular Hemoglobin 26.2 pg (28.0-32.0)
[2025-02-03 09:06] LABS: Basophils # (auto) 0.1 10 ^3/uL (0-0.2); Basophils % (auto) 0.4 % (0.0-2.0); Hematocrit 25.5 % (41.0-53.0); Lymphocytes % (auto) 7.2 % (10.0-50.0); Mean Corpuscular Hgb Conc. 32.1 g/dL (32.0-36.0); Mean Corpuscular Volume 81.7 fL (80.0-100.0); Monocytes # (auto) 1.2 10 ^3/uL (0-1.3); Monocytes % (auto) 8.9 % (0.0-12.0); Neutrophils # (auto) 10.7 10 ^3/uL (1.6-8.6); Neutrophils % (auto) 82.5 % (37.0-80.0); Nucleated Red Blood Cells % 0.1 %; Platelet Count (auto) 300 10^3/uL (140-450); Red Blood Cells 3.12 10^6/uL (4.5-5.90); Red Cell Distribution Width 18.9 % (11.8-14.3)
[2025-02-03] MEDS: LACTULOSE 20Gm/30ML SOLN PO PRN (09:08)
[2025-02-03 09:17] LABS: Alkaline Phosphatase 77 U/L (46-116); Anion Gap 6 (5-15); BUN/Creatinine Ratio 42.9 (10.0-20.0); Blood Urea Nitrogen 18 mg/dL (9-23); Carbon Dioxide 24 mmol/L (20-31); Chloride 102 mmol/L (98-107); Magnesium 1.6 mg/dL (1.6-2.6); Potassium 3.7 mmol/L (3.5-5.1)
[2025-02-03 09:18] LABS: Bilirubin, Total 0.5 mg/dL (0.2-1.0)
[2025-02-03 09:19] LABS: Alanine Aminotransferase 55 U/L (7-40); Albumin 2.7 g/dL (3.2-4.8); Aspartate Aminotransferase 133 U/L (13-40); Calcium 7.7 mg/dL (8.7-10.4); Glucose 119 mg/dL (74-106); Sodium 132 mmol/L (136-145)
[2025-02-03] MEDS ORDERED: THIAMINE 100mg/ml INJ (200mg/2ml VIAL) IV SCH (10:00)
[2025-02-03] MEDS: MAGNESIUM SULFATE 1GM/100ML 100 ML IV SCH (10:33)
[2025-02-03] MEDS: LACTULOSE 20Gm/30ML SOLN PO SCH (10:45)
[2025-02-03] MEDS ORDERED: FUROSEMIDE 20 MG TAB PO ONE (11:00)
[2025-02-03 11:33] LABS: Albumin 2.5 g/dL (3.2-4.8); Bilirubin, Direct 0.2 mg/dL (<0.3); Bilirubin, Total 0.4 mg/dL (0.2-1.0); Total Protein 5.6 g/dL (5.7-8.2)
[2025-02-03] MEDS: FUROSEMIDE 20 MG/2 ML VIAL IV ONE (12:58)
[2025-02-03] MEDS: IRON SUCROSE COMPLEX 110 ML IV ONE (12:58)
[2025-02-03] MEDS: SPIRONOLACTONE 25 MG TAB PO ONE (12:58)
--- NOTE | 2025-02-03 13:11 | DVH ---
Date: 02/03/2025 11:09 AM Examination: XY KUB ABDOMEN SINGLE VIEW History: abdominal distention Comparison: None TECHNIQUE: Frontal views of the abdomen was obtained. FINDINGS: Bowel gas pattern is unremarkable. The lung bases are unremarkable. No acute osseous abnormality identified. IMPRESSION: Nonobstructive bowel gas pattern. Large stool burden
[2025-02-03] MEDS: THIAMINE INJ 250 MG in D5W 5% 50 ML IV SCH (14:28)
--- NOTE | 2025-02-03 15:11 | DVHPNRES ---
Progress Note Date Seen: Feb 03, 2025 Resident Creating Document: BILLY MORENO Medical Necessity Reason Pt with a Central, PICC or Fol: No The following are medically ne: Aviles Catheter Subjective Review of Systems This is a 64-year-old cachectic male with PMH of HTN, PAD, BPH, vasculopathy, Ogov-et-edgltjam stenosis of the juxtarenal abdominal aorta. Vqtq-zu-jmpgcegg stenosis of the superior mesenteric. 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 Hshg-qk-asirtftm stenosis of the left renal artery. 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 and recent bilateral lower extremity stent placement presents to ED with chief complaint of generalized weakness since he left rehab center three days ago. He had his blood drawn at the rehab center for which has showed hemoglobin of 5.9. The patient was instructed to go to the nearest ER for blood transfusion. He denied bloody stool and hematemesis. He denies taking anticoagulant. The patient reports heavy alcohol abuse quit four months ago. The patient hemoglobin found to be 5.4 with lactic acid 4.3. UDS negative, serum alcohol< 3.0. . Upon evaluating patient in ER bed 12, notable foul odor noted to his right foot with dressing in place. The dressing was saturated removed and multiple open sores with pus were present. The patient states that his right leg wound has been dressed two days ago and currently under treatment without being prescribed any antibiotics. The patient is currently receiving packed red blood cell transfusion. The patient is concerned about his symptoms and would like to be further evaluated and treated. The patient will be admitted under hospitalist care to the telemetry unit for continuous monitoring. The patient denies fever, chills, headache, dizziness, palpitation, chest pain, nausea, vomiting, abdominal pain, diarrhea, constipation and other associated symptoms. The plan has been discussed with the patient in which all questions concerns have been addressed. Initial lab workup revealed leukocytosis with WBC 17.4, severe anemia with a hemoglobin 5.4. UDS negative, serum alcohol< 3.0. CXR-No pulmonary airspace consolidation. Ultrasound of the abdomen revealed- Atrophic right kidney. Distended bladder with debris. Gallbladder sludge.Bladder volume measures 1848 cc. Doppler study of the lower extremity negative for DVT. Arterial Doppler of the lower extremity revealed no flow seen in the right distal superficial femoral artery, right anterior tibial and dorsalis pedis artery. CT abdomen and pelvis revealed moderate ascites, cirrhotic liver. Colonic diverticulosis, small bilateral pleural effusion with overlying compressive atelectasis. CT head negative for acute intracranial abnormality. CT abdomen and pelvis revealed moderate ascites, cirrhotic liver. Colonic diverticulosis, small bilateral pleural effusion with overlying compressive atelectasis PMH-HTN, PAD, BPH, Tiae-bt-xnjrbsor stenosis of the juxtarenal abdominal aorta. Axtc-bz-muymwple stenosis of the superior mesenteric. 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 Jblw-kq-rlpmtivz stenosis of the left renal artery. High- grade stenosis or occlusion of the proximal right common iliac artery. PSH- status post bilateral lower extremity stent Allergy- Personal History/ Social History- history of alcoholism but exacerbation patient did not drink alcohol last couple of months when he was in rehab. Patient was seen today at the bedside. Patient Cardiovascular- deny acute chest pain or shortness of breath or cough or palpitation Respiratory denies cough or short of breath or wheezing Gastrointestinal- denies any rectal bleeding, nausea or vomiting Musculoskeletal-denies acute joint swelling or tenderness or redness Neurological- denies acute dysarthria, dysphagia, change in vision Psychiatry- denies depression or SI or HI Skin- denies acute rash or purpura Patient was seen today for clinical evaluation. Labs and chart reviewed. Patient had fever last night 100.6, hemoglobin today 8.2, BNP 176, WBC trending down to 13. Ordered blood culture. Ordered HIV and VDRL also hepatic panel for hepatitis C as well. Imodium with a normal limit. Patient is still on AFib, patient was seen by Cardiology, recommended for continuing medical management with beta kim. Patient is scheduled for angiogram for revascularization on Thursday. Bedside ultrasound revealed minimal ascitic fluid, no pocket of ampule fluid to be drawn. Bladder call us likely due to patient is a Aviles's catheter. No other significant consult. Started on spironolactone 25 mg q.d., Lasix 20 mg p.o. daily. Provider spoke to patient's Jag rodriguez, [phone], discussed patient's current medical condition, plan of care and answered her question. Objective vital signs Vital Sign Date Time Temp Pulse Resp B/P (MAP) Pulse Ox O2 Delivery O2 Flow Rate FiO2 02/03/25 12:58 128/90 02/03/25 12:49 98.6 100 22 95 98.6 02/03/25 08:04 Room Air* 0 21 Total Intake and Output 02/02/25 02/02/25 02/03/25 15:00 23:00 07:00 Intake Total 600 ml 1200 ml Output Total 1100 ml 1300 ml Balance -500 ml -100 ml medications Current Medications Medications Dose Ordered Sig/Omar Route Start Time Stop Time Status Last Admin Dose Admin Acetaminophen/ Hydrocodone Bitart 1 tab Q4HP PRN PO 01/28/25 19:00 02/02/25 05:50 1 TAB Ascorbic Acid 500 mg BID PO 01/28/25 22:00 02/03/25 10:33 500 MG Acetaminophen 650 mg Q6HP PRN PO 01/28/25 19:00 Nitroglycerin 0.4 mg Q5MINP PRN SL 01/28/25 19:00 Morphine Sulfate 2 mg Q30M PRN IV 01/28/25 19:00 01/29/25 13:03 2 MG Aspirin 81 mg DAILY PO 01/29/25 10:00 Hold 01/31/25 10:49 81 MG Atorvastatin Calcium 80 mg HS PO 01/28/25 22:00 02/02/25 23:03 80 MG Cilostazol 100 mg BID PO 01/28/25 22:00 02/03/25 10:33 100 MG Minoxidil 5 mg DAILY PO 01/29/25 10:00 01/31/25 10:52 5 MG Nicotine 1 patch DAILY TD 01/29/25 10:00 02/03/25 10:33 1 PATCH Tamsulosin HCl 0.4 mg DAILY PO 01/29/25 10:00 Hold 01/31/25 10:53 0.4 MG Cefepime HCl 50 ml @ 12.5 mls/hr Q12HR IV 01/29/25 22:00 02/03/25 10:32 12.5 MLS/HR Vancomycin HCl 0 ml @ 0 mls/hr UD IV 01/29/25 15:00 Vancomycin HCl 250 ml @ 200 mls/hr Q12H IV 01/29/25 20:00 02/03/25 09:23 200 MLS/HR Haloperidol Lactate 5 mg Q8HP PRN IM 01/29/25 17:00 01/30/25 22:01 5 MG Folic Acid 1 mg/ Dextrose 50.2 ml @ 200.8 mls/ hr DAILY INJ 01/31/25 10:00 UNV Folic Acid 1 mg DAILY PO 01/31/25 10:00 02/03/25 10:32 1 MG Multivitamins/ Minerals 1 tab DAILY PO 02/01/25 10:00 02/03/25 10:32 1 TAB Enteral Nutritional Formula 240 ml TID PO 02/02/25 14:00 02/03/25 14:07 240 ML Thiamine HCl 250 mg DAILY IV 02/03/25 10:00 02/08/25 09:59 UNV Thiamine HCl 250 mg/Dextrose 52.5 ml @ 100 mls/hr DAILY IV 02/03/25 10:00 02/07/25 10:32 02/03/25 14:28 100 MLS/HR Metoprolol Tartrate 12.5 mg BID PO 02/02/25 22:00 02/03/25 10:34 12.5 MG Enoxaparin Sodium 60 mg DAILY SC 02/03/25 10:00 Hold 02/02/25 23:24 60 MG Pantoprazole Sodium 40 mg BID IV 02/02/25 22:00 02/03/25 10:32 40 MG Sucralfate 1 gm QIDACHS PO 02/02/25 22:00 02/03/25 10:34 1 GM Lactulose 30 ml BID PO 02/03/25 10:45 Furosemide 20 mg DAILY PO 02/04/25 10:00 Spironolactone 25 mg DAILY PO 02/04/25 10:00 Examination General examination- patient is awake , alert HEENT- PEERLA, no acute nasal discharge Cardiovascular- S1-S2 audible, rate and rhythm regular, no murmur Respiratory- CTAB, no wheeze or rhonchi Gastrointestinal-nontender, bowel sound+. Nondistended Musculoskeletal-no acute joint swelling or tenderness or redness Lower extremity- right foot ulcer with a black eschar on the medial and inferior surface of the foot, with redness and skin excoriation of the rest of the foot Neurological- cranial nerves intact, no acute dysarthria or dysphagia Psychiatry- denies depression or SI or HI Skin- right foot ulcer with a black eschar on the medial and inferior surface of the foot, with redness and skin excoriation of the rest of the foot laboratory and microbiology Laboratory Tests 02/03/25 08:40 Test 02/03/25 08:40 Range/Units Serum Glucose 119 H 74-106 mg/dL Microbiology Date/Time Source Procedure Growth Status 01/30/25 18:49 Foot Right Gram Stain - Final Resulted 01/30/25 18:49 Wound Culture - Preliminary Pseudomonas aeruginosa Resulted 01/30/25 11:20 Voided Urine Urine Culture - Final Complete 01/28/25 14:17 Blood Blood Culture - Final NO GROWTH AFTER 5 DAYS OF INCUBATION. Complete Problem List/Assessment/Plan Problem List/Assessment/Plan Assessment and plan-Ordered blood culture. Ordered HIV and VDRL also hepatic panel for hepatitis C as well. Imodium with a normal limit. Patient is still on AFib, patient was seen by Cardiology, recommended for continuing medical management with beta kim. Patient is scheduled for angiogram for revascularization on Thursday. Bedside ultrasound revealed minimal ascitic fluid, no pocket of ampule fluid to be drawn. Bladder call us likely due to patient is a Aviles's catheter. No other significant consult. Started on spironolactone 25 mg q.d., Lasix 20 mg p.o. daily. Sepsis likely due to right foot cellulitis right foot ulcer with a black eschar on the medial and inferior surface of the foot, with redness and skin excoriation of the rest of the foot\ Right foot cellulitis with a blackish care Necrotizing soft tissue infection of the right foot Right foot abscess Right foot wet gangrene Right foot osteomyelitis Severe anemia, S/P BT - pRBC Likely GI bleeding. FOBT Positive Acute retention of urine likely due to BPH Metabolic encephalopathy/toxic encephalopathy Suspected Wernicke's encephalopathy Peripheral arterial disease A-Fib/AV roslyn reentry tachycardia/paroxysmal SVT Severe vasculopathy BPH Constipation Hyperlipidemia Hypertension Ruled out UTI CT angio with run off revealed- Advanced atherosclerotic disease. Acth-yn-zxemxogn stenosis of the infrarenal abdominal aorta partially imaged. High-grade stenosis or focal occlusion of the proximal right common iliac artery. Occluded right superficial femoral and popliteal arteries. 2-vessel runoff to the right foot via the anterior tibial and peroneal arteries. Moderate high-grade stenosis of the left common iliac artery. Occluded distal left superficial femoral artery and popliteal arteries. Ascites. Patient on atrial fibrillation. Started carvedilol. Pending Echo 2D. Spoke to vascular surgeon Dr. Martinez, recommended arteriogram in clinical laboratory aide on Thursday. Plan Blood culture negative Wound culture revealed E coli, MRSA, Pseudomonas aeruginosa, Providencia stuartii. CT abdomen and pelvis revealed moderate ascites, cirrhotic liver. Colonic diverticulosis, small bilateral pleural effusion with overlying compressive atelectasis On 02/02/2025-x-ray of [facility]-nonobstructive gas pattern 02/03/2024 CT angio with run off revealed- Advanced atherosclerotic disease. Fnnl-uk-dnsbtoib stenosis of the infrarenal abdominal aorta partially imaged. High-grade stenosis or focal occlusion of the proximal right common iliac artery. Occluded right superficial femoral and popliteal arteries. 2-vessel runoff to the right foot via the anterior tibial and peroneal arteries. Moderate high-grade stenosis of the left common iliac artery. Occluded distal left superficial femoral artery and popliteal arteries. Ascites. Continue cefepime and vancomycin as prescribed Continue pain medication as prescribed Pantoprazole as prescribed Tamsulosin 0.4 mg p.o. daily Cilostazol 100 mg p.o. b.i.d. Atorvastatin 80 mg p.o. HS Aspirin 81 mg p.o. daily Metoprolol tartrate 12.5 mg p.o. b.i.d. Continue thiamine as prescribed Continue folic acid as prescribed spironolactone 25 mg q.d., Lasix 20 mg p.o. daily. Spoke to vascular surgeon Dr. Martinez, recommended arteriogram in clinical laboratory aide on Thursday. Bedside ultrasound revealed minimal ascitic fluid, no pocket of ampule fluid to be drawn. Bladder call us likely due to patient is a Aviles's catheter. No other significant consult. CPT code 94828 Goals of care, Code status ; discussed with >15 minutes PUD prophylaxis: Pantoprazole DVT prophylaxis: Patient was severe anemia Plan discussed with Dr. Cotton , nursing staff, Total time spent on patient evaluation, chart review, assessment and plan, discussion discussion >35 minutes Plan discussed with: Patient, Spouse (RN), Daughter, Other (RN) My Orders My Orders Orders - BILLY MORENO RESIDENT Procedure Category Date Status Time Blood Culture RON 02/03/25 In Process 06:24 Kub Abdomen Single XY 02/03/25 Resulted View 10:34 Lactulose Oral PHA 02/03/25 In Process 10:45 Furosemide Tablet PHA 02/04/25 In Process (Lasix Tablet) 10:00 Hepatitis C Antibody LAB 02/03/25 In Process 10:57 Spironolactone PHA 02/04/25 In Process (Aldactone) 10:00 Dietary Evaluation Review Recommendations by RD: Increase Calorie Intake, Protein Supplementation Comments: 1) Ensure Enlive 240ml QID (ordered per ONS protocol) 2) Jose A 1 pk BID (ordered per ONS protocol) 3) Continue current POC Expected Outcomes/Goals: wound healing to improve to meet 75% estimated energy & protein needs fu 3-5 days Interpretation of weight loss: >10% in 6 months Fluid Accumulation (Non Severe: Mild fluid retention Protein Calorie Malnutrition: Severe Is there a minimum of two crit: Yes CC Plasma Assessment Blood Product Administration S: [id number] Date of Service: Feb 03, 2025 Billing Provider: DOLORES KAT MD Common Visit Codes: [id number] INP/OBS CARE(HIGH) BILLY MORENO RESIDENT Feb 03, 2025 15:11 DOLORES KAT MD February 11, 2025 21:18
[2025-02-03] MEDS: SODIUM CHL 0.9% 50 ML IV ONE (16:00)
[2025-02-03] MEDS: LACTULOSE 20Gm/30ML SOLN PO ONE (16:00)
[2025-02-03] MEDS: POLYETHYLENE GLYCOL 17 GM PWDR PO ONE (16:00)
[2025-02-03] MEDS: POTASSIUM CHL 20MEQ/50ML 50 ML IV ONE (16:01)
--- NOTE | 2025-02-03 17:02 | DVHSR ---
APPROVED REPORT EXAM: Two-dimensional and M-mode echocardiogram with Doppler and color Doppler. Blood Pressure: 125/53 mmHg INDICATION Dyspnea RISK FACTORS Height: 5'10", Weight: 104 DIMENSIONS LVDd4.1 (3.8-5.7cm)LA (2D)4.6 (1.9-4.0cm)Aortic Root (2.0-3.7cm) LVDs2.6 (2.5-4.0cm)LA (MM) (1.9-4.0cm)Aortic Cusp Exc (1.5-2.0cm) EF (%) 69.0 (55-70%)Rt. Atrium (1.9-4.0cm)Asc. Aorta cm IVSd1.0 (0.7-1.1cm)RV (D) (1.8-2.4cm) Mitral Valve MitralMitral Stenosis E/A ratio0.02D MVAcm2 Aortic Valve Aortic ValveAortic Stenosis 2D AVA2.40cm2 Other Information Quality : Technically LimitedRhythm : Technically limited study due to body habitus and patient position. Conclusion LVEF is normal at 60-65% RV size and function normal Valves grossly normal
--- NOTE | 2025-02-03 17:46 | DVHPN2 ---
Consult Progress Note Subjective Other Systems: Denies any cardiac symptoms at time of assessment Objective vital signs Vital Sign Date Time Temp Pulse Resp B/P (MAP) Pulse Ox O2 Delivery O2 Flow Rate FiO2 02/03/25 16:59 99.2 104 22 114/62 (79) 94 99.2 02/03/25 08:04 Room Air* 0 21 Total Intake and Output 02/02/25 02/02/25 02/03/25 15:00 23:00 07:00 Intake Total 600 ml 1200 ml Output Total 1100 ml 1300 ml Balance -500 ml -100 ml medications Current Medications Medications Dose Ordered Sig/Omar Route Start Time Stop Time Status Last Admin Dose Admin Acetaminophen/ Hydrocodone Bitart 1 tab Q4HP PRN PO 01/28/25 19:00 02/02/25 05:50 1 TAB Ascorbic Acid 500 mg BID PO 01/28/25 22:00 02/03/25 10:33 500 MG Acetaminophen 650 mg Q6HP PRN PO 01/28/25 19:00 Nitroglycerin 0.4 mg Q5MINP PRN SL 01/28/25 19:00 Morphine Sulfate 2 mg Q30M PRN IV 01/28/25 19:00 01/29/25 13:03 2 MG Aspirin 81 mg DAILY PO 01/29/25 10:00 Hold 01/31/25 10:49 81 MG Atorvastatin Calcium 80 mg HS PO 01/28/25 22:00 02/02/25 23:03 80 MG Cilostazol 100 mg BID PO 01/28/25 22:00 02/03/25 10:33 100 MG Minoxidil 5 mg DAILY PO 01/29/25 10:00 01/31/25 10:52 5 MG Nicotine 1 patch DAILY TD 01/29/25 10:00 02/03/25 10:33 1 PATCH Tamsulosin HCl 0.4 mg DAILY PO 01/29/25 10:00 Hold 01/31/25 10:53 0.4 MG Cefepime HCl 50 ml @ 12.5 mls/hr Q12HR IV 01/29/25 22:00 02/03/25 10:32 12.5 MLS/HR Vancomycin HCl 0 ml @ 0 mls/hr UD IV 01/29/25 15:00 Vancomycin HCl 250 ml @ 200 mls/hr Q12H IV 01/29/25 20:00 02/03/25 09:23 200 MLS/HR Haloperidol Lactate 5 mg Q8HP PRN IM 01/29/25 17:00 01/30/25 22:01 5 MG Folic Acid 1 mg/ Dextrose 50.2 ml @ 200.8 mls/ hr DAILY INJ 01/31/25 10:00 UNV Folic Acid 1 mg DAILY PO 01/31/25 10:00 02/03/25 10:32 1 MG Multivitamins/ Minerals 1 tab DAILY PO 02/01/25 10:00 02/03/25 10:32 1 TAB Enteral Nutritional Formula 240 ml TID PO 02/02/25 14:00 02/03/25 14:07 240 ML Thiamine HCl 250 mg DAILY IV 02/03/25 10:00 02/08/25 09:59 UNV Thiamine HCl 250 mg/Dextrose 52.5 ml @ 100 mls/hr DAILY IV 02/03/25 10:00 02/07/25 10:32 02/03/25 14:28 100 MLS/HR Metoprolol Tartrate 12.5 mg BID PO 02/02/25 22:00 02/03/25 10:34 12.5 MG Enoxaparin Sodium 60 mg DAILY SC 02/03/25 10:00 Hold 02/02/25 23:24 60 MG Pantoprazole Sodium 40 mg BID IV 02/02/25 22:00 02/03/25 10:32 40 MG Sucralfate 1 gm QIDACHS PO 02/02/25 22:00 02/03/25 17:37 1 GM Lactulose 30 ml BID PO 02/03/25 10:45 Furosemide 20 mg DAILY PO 02/04/25 10:00 Spironolactone 25 mg DAILY PO 02/04/25 10:00 Examination: GENERAL:Abnormal (Generalized weakness), LUNGS:Normal, CVS:Abnormal (Sinus rhythm with frequent ectopy on monitor) laboratory and microbiology Laboratory Tests 02/03/25 08:40 Test 02/03/25 08:40 Range/Units Serum Glucose 119 H 74-106 mg/dL Problem List/Assessment/Plan Problem List/Assessment/Plan Atrioventricular roslyn reentry tachycardia Questionable atrial fibrillation Nonsustained ventricular tachycardia Peripheral arterial disease status post bilateral lower extremity stents Hypertension Hyperlipidemia Severe anemia requiring PRBC transfusion GI bleed with positive Hemoccult Hypokalemia Sepsis Right foot osteomyelitis Necrotizing wound to right foot Plan/Recommendation (Dr. Hamilton): Cardiac events reviewed with MD. Patient appears to have episodes of AV roslyn reentry tachycardia, likely SVT, but could possibly be atrial fibrillation. The patient also having episodes of nonsustained V-tach. Patient noted to have a lot of ectopy on monitor including frequent PACs. We will recommend to continue with close cardiac surveillance. The patient presents with multiple issues such as severe anemia, sepsis, GI bleed and electrolyte imbalances which places the patient at high risk for arrhythmias. Transthoracic echocardiogram reveals EF 60-65%. We will recommend to treat all underlying issues. Consider GI workup. Monitor and replete electrolytes as needed, keep potassium greater than four and magnesium greater than two. Continue with beta-kim for rate control as tolerated by blood pressure. Continue with close cardiac surveillance and monitor for arrhythmias. Thank you for allowing us to care for this patient. Please call with any questions or concerns. This medical document was created using an electronic medical record system with voice recognition software and computerized dictation system. Although this document has been carefully reviewed, there might still be some phonetic and typographical errors. Occasional wrong-word or ``sound-alike�� substitutions may have occurred due to the inherent limitations of voice recognition software. These areas are purely typographical due to imperfections of the software programs and do not reflect any compromise in the patient's medical care. Please read the chart carefully and recognize, using context, where these substitutions have occurred. Plan discussed with: Patient Dietary Evaluation Review Recommendations by RD: Increase Calorie Intake, Protein Supplementation Comments: 1) Ensure Enlive 240ml QID (ordered per ONS protocol) 2) Jose A 1 pk BID (ordered per ONS protocol) 3) Continue current POC Expected Outcomes/Goals: wound healing to improve to meet 75% estimated energy & protein needs fu 3-5 days Interpretation of weight loss: >10% in 6 months Fluid Accumulation (Non Severe: Mild fluid retention Protein Calorie Malnutrition: Severe Is there a minimum of two crit: Yes CC Plasma Assessment Blood Product Administration S: 2151 Date of Service: Feb 03, 2025 Billing Provider: TC ABEBE Common Visit Codes: [id number] INP/OBS CARE(HIGH) TC ABEBE Feb 03, 2025 17:46
--- NOTE | 2025-02-03 21:43 | DVHPN2 ---
Consult Progress Note Subjective Other Systems: Patient was seen and evaluated in follow up. Patient is complaining of generalized pain. Patient is scheduled for angiogram for revascularization on Tuesday 02/06. WBC 13, HGB 8.2, HCT 25.5. KUB revealed nonobstructive bowel gas pattern. Large stool burden Telemetry reviewed. Objective vital signs Vital Sign Date Time Temp Pulse Resp B/P (MAP) Pulse Ox O2 Delivery O2 Flow Rate FiO2 02/03/25 16:59 99.2 104 22 114/62 (79) 94 99.2 02/03/25 08:04 Room Air* 0 21 Total Intake and Output 02/02/25 02/02/25 02/03/25 15:00 23:00 07:00 Intake Total 600 ml 1200 ml Output Total 1100 ml 1300 ml Balance -500 ml -100 ml medications Current Medications Medications Dose Ordered Sig/Omar Route Start Time Stop Time Status Last Admin Dose Admin Acetaminophen/ Hydrocodone Bitart 1 tab Q4HP PRN PO 01/28/25 19:00 02/02/25 05:50 1 TAB Ascorbic Acid 500 mg BID PO 01/28/25 22:00 02/03/25 10:33 500 MG Acetaminophen 650 mg Q6HP PRN PO 01/28/25 19:00 Nitroglycerin 0.4 mg Q5MINP PRN SL 01/28/25 19:00 Morphine Sulfate 2 mg Q30M PRN IV 01/28/25 19:00 01/29/25 13:03 2 MG Aspirin 81 mg DAILY PO 01/29/25 10:00 Hold 01/31/25 10:49 81 MG Atorvastatin Calcium 80 mg HS PO 01/28/25 22:00 02/02/25 23:03 80 MG Cilostazol 100 mg BID PO 01/28/25 22:00 02/03/25 10:33 100 MG Minoxidil 5 mg DAILY PO 01/29/25 10:00 01/31/25 10:52 5 MG Nicotine 1 patch DAILY TD 01/29/25 10:00 02/03/25 10:33 1 PATCH Tamsulosin HCl 0.4 mg DAILY PO 01/29/25 10:00 Hold 01/31/25 10:53 0.4 MG Cefepime HCl 50 ml @ 12.5 mls/hr Q12HR IV 01/29/25 22:00 02/03/25 10:32 12.5 MLS/HR Vancomycin HCl 0 ml @ 0 mls/hr UD IV 01/29/25 15:00 Vancomycin HCl 250 ml @ 200 mls/hr Q12H IV 01/29/25 20:00 02/03/25 09:23 200 MLS/HR Haloperidol Lactate 5 mg Q8HP PRN IM 01/29/25 17:00 01/30/25 22:01 5 MG Folic Acid 1 mg/ Dextrose 50.2 ml @ 200.8 mls/ hr DAILY INJ 01/31/25 10:00 UNV Folic Acid 1 mg DAILY PO 01/31/25 10:00 02/03/25 10:32 1 MG Multivitamins/ Minerals 1 tab DAILY PO 02/01/25 10:00 02/03/25 10:32 1 TAB Enteral Nutritional Formula 240 ml TID PO 02/02/25 14:00 02/03/25 14:07 240 ML Thiamine HCl 250 mg DAILY IV 02/03/25 10:00 02/08/25 09:59 UNV Thiamine HCl 250 mg/Dextrose 52.5 ml @ 100 mls/hr DAILY IV 02/03/25 10:00 02/07/25 10:32 02/03/25 14:28 100 MLS/HR Metoprolol Tartrate 12.5 mg BID PO 02/02/25 22:00 02/03/25 10:34 12.5 MG Enoxaparin Sodium 60 mg DAILY SC 02/03/25 10:00 Hold 02/02/25 23:24 60 MG Pantoprazole Sodium 40 mg BID IV 02/02/25 22:00 02/03/25 10:32 40 MG Sucralfate 1 gm QIDACHS PO 02/02/25 22:00 02/03/25 17:37 1 GM Lactulose 30 ml BID PO 02/03/25 10:45 Furosemide 20 mg DAILY PO 02/04/25 10:00 Spironolactone 25 mg DAILY PO 02/04/25 10:00 Examination: GENERAL:Normal, NECK:Normal, LUNGS:Normal, CVS:Normal, ABDOMEN:Normal laboratory and microbiology Laboratory Tests 02/03/25 08:40 Test 02/03/25 08:40 Range/Units Serum Glucose 119 H 74-106 mg/dL Problem List/Assessment/Plan Problem List/Assessment/Plan Problem List/Assessment/Plan Atrioventricular roslyn reentry tachycardia. Questionable atrial fibrillation. Nonsustained ventricular tachycardia. Peripheral arterial disease status post bilateral lower extremity stents. Rule out structural heart disease. Hypertension. Hyperlipidemia. Severe anemia requiring PRBC transfusion. GI bleed with positive Hemoccult. Hypokalemia. Sepsis. Right foot osteomyelitis. Necrotizing wound to right foot. Plan/Recommendation Continued all current supportive medical care. Patient has been seen by Lillian Neely NP on my behalf, her and I discussed the plan with the patient. Patient appears to have episodes of AV roslyn reentry tachycardia, likely SVT, but could possibly be atrial fibrillation. The patient also having episodes of nonsustained V-tach. Patient noted to have a lot of ectopy on monitor including frequent PACs. We will recommend to continue with close cardiac surveillance. The patient presents with multiple issues such as severe anemia, sepsis, GI bleed and electrolyte imbalances which places the patient at high risk for arrhythmias. Proceed with obtaining a transthoracic echocardiogram to evaluate cardiac function. We will recommend to treat all underlying issues. Consider GI workup. Monitor and replete electrolytes as needed, keep potassium greater than four and magnesium greater than two. Continue with beta-kim for rate control as tolerated by blood pressure. Continue with close cardiac surveillance and monitor for arrhythmias. Additional plan as per the hospital course. Plan discussed with: Patient Dietary Evaluation Review Recommendations by RD: Increase Calorie Intake, Protein Supplementation Comments: 1) Ensure Enlive 240ml QID (ordered per [facility] protocol) 2) Jose A 1 pk BID (ordered per [facility] protocol) 3) Continue current POC Expected Outcomes/Goals: wound healing to improve to meet 75% estimated energy & protein needs fu 3-5 days Interpretation of weight loss: >10% in 6 months Fluid Accumulation (Non Severe: Mild fluid retention Protein Calorie Malnutrition: Severe Is there a minimum of two crit: Yes CC Plasma Assessment Blood Product Administration S: 2151 Date of Service: Feb 03, 2025 Billing Provider: DEWAYNE SAMANO MD Cardiology Common Codes: 50038-GRJRCXO INP/OBS CARE (High) DEWAYNE SAMANO MD Feb 03, 2025 17:56
[2025-02-04] VITALS (13 sets, daily range): BP systolic 96–137; BP diastolic 49–71; PULSE 83–116; RESP 16–20; TEMP 97.7–98.9; O2SAT 90–99
[2025-02-04 05:08] LABS: Vitamin B1, Whole Blood 174.6 nmol/L (66.5-200.0)
[2025-02-04 05:32] LABS: Basophils # (auto) 0 10 ^3/uL (0-0.2); Basophils % (auto) 0.3 % (0.0-2.0); Eosinophils # (auto) 0.1 10 ^3/uL (0-0.8); Eosinophils % (auto) 1.1 % (0.0-7.0); Hematocrit 21.6 % (41.0-53.0); Lymphocytes # (auto) 0.9 10 ^3/uL (0.4-5.4); Mean Corpuscular Hemoglobin 26.6 pg (28.0-32.0); Mean Corpuscular Hgb Conc. 31.8 g/dL (32.0-36.0); Mean Corpuscular Volume 83.5 fL (80.0-100.0); Monocytes % (auto) 9.2 % (0.0-12.0); Neutrophils # (auto) 8.8 10 ^3/uL (1.6-8.6); Neutrophils % (auto) 81.4 % (37.0-80.0); Platelet Count (auto) 247 10^3/uL (140-450); Red Blood Cells 2.59 10^6/uL (4.5-5.90); White Blood Cell 10.8 10^3/uL (4.4-10.8)
[2025-02-04 05:42] LABS: Alkaline Phosphatase 60 U/L (46-116); Anion Gap 5 (5-15); BUN/Creatinine Ratio 29.3 (10.0-20.0); Bilirubin, Total 0.3 mg/dL (0.2-1.0); Blood Urea Nitrogen 12 mg/dL (9-23); Carbon Dioxide 24 mmol/L (20-31); Chloride 104 mmol/L (98-107); Glucose 104 mg/dL (74-106); Magnesium 1.9 mg/dL (1.6-2.6); Potassium 3.7 mmol/L (3.5-5.1)
[2025-02-04 05:44] LABS: Hemoglobin 6.9 g/dL (13.5-17.5)
[2025-02-04 05:55] LABS: Alanine Aminotransferase 45 U/L (7-40); Albumin 2.2 g/dL (3.2-4.8); Aspartate Aminotransferase 94 U/L (13-40); Calcium 7.2 mg/dL (8.7-10.4); Sodium 133 mmol/L (136-145)
[2025-02-04 06:33] LABS: Platelet Estimate Adequate
--- NOTE | 2025-02-04 10:00 | DVHCONRES ---
Date Seen: Feb 04, 2025 Resident Creating Document: BUD RYO RESIDENT Referring Physician Dr Marx Reason for Consultation GI bleed History of Present Illness This 64-year-old man who is cachectic admitted with complaints of generalized weakness apparently he was in a rehab center where he left with three days ago his hemoglobin was found to be low of 5.9 the patient's came for blood transfusion denies any hematemesis or melena. Examination is confused and history of radiation has history of heavy alcohol abuse patient has had recent bilateral lower extremity stent placement and has got problems with followed in the right foot dressing which could not which is has got some source apparently with pus no gross GI bleeding no bleeding from anywhere else no history of any ulcer disease or colon problems Patient seen and examined at the bedside. Patient reported no GI complaints at this time. Family History: FH: cancer G8 MOTHER FH: lung cancer G8 FATHER Hepatitis C 19 CHILD Allergies: Coded Allergies: NO KNOWN ALLERGIES (Unverified , 09/30/24) Home Meds Active Scripts Tamsulosin Hcl (Tamsulosin Hcl) 0.4 Mg Cap, 2 CAP PO DAILY, #60 CAP 5 Refills Prov:[facility] 10/04/24 Cilostazol (Cilostazol) 100 Mg Tab, 1 TAB PO BID, #60 TAB 5 Refills Prov:[facility] 10/04/24 Nicotine (Nicoderm 21MG/24HR) 1 Patch Ph, 1 PATCH TD DAILY for 30 Days, #30 PA TCH Prov:[facility] 10/04/24 Minoxidil (Loniten) 2.5 Mg Tb, 5 MG PO DAILY for 30 Days, #60 TAB Prov:[facility] 10/04/24 Lisinopril (Lisinopril) 5 Mg Tab, 5 MG PO DAILY for 30 Days, #30 TAB Prov:[facility] 10/04/24 Hydralazine HCl (Hydralazine HCl) 25 Mg Tab, 50 MG PO Q8HR for 30 Days, #180 TAB Prov:[facility] 10/04/24 Atorvastatin Calcium (ATORVASTATIN CALCIUM) 20 Mg Tab, 80 MG PO HS for 30 Days, #120 TAB Prov:[facility] 10/04/24 Aspirin (Aspirin Low Dose) 81 Mg Tab, 81 MG PO DAILY for 30 Days, #30 TAB Prov:BRANDI HOPPER RESIDENT 10/04/24 Current Medications Current Medications Medications (Trade) Dose Ordered Sig/Omar Route PRN Reason Start Time Stop Time Status Last Admin Thiamine HCl 250 mg DAILY IV 02/03/25 10:00 02/08/25 09:59 UNV Thiamine HCl 250 mg/Dextrose 52.5 ml @ 100 mls/hr DAILY IV 02/03/25 10:00 02/07/25 10:32 02/03/25 14:28 Enoxaparin Sodium (Lovenox) 60 mg DAILY SC 02/03/25 10:00 Hold 02/02/25 23:24 Magnesium Sulfate/ Dextrose 100 ml @ 100 mls/hr Q1HR IV 02/03/25 11:00 02/03/25 12:59 DC 02/03/25 12:10 Lactulose 30 ml BID PO 02/03/25 10:45 Furosemide (Lasix Tablet) 20 mg DAILY PO 02/04/25 10:00 Spironolactone (Aldactone) 25 mg DAILY PO 02/04/25 10:00 Review of Systems Patient seen and examined at the bedside. Patient reported no GI complaints at this time. Vital Signs Vital Signs Date Time Temp Pulse Resp B/P (MAP) Pulse Ox O2 Delivery O2 Flow Rate FiO2 02/04/25 08:27 16 95 Room Air* 0 21 02/04/25 05:00 98.3 98 96/49 (65) 98.3 Physical Exam General examination- patient is awake , alert HEENT- PEERLA, no acute nasal discharge Cardiovascular- S1-S2 audible, rate and rhythm regular, no murmur Respiratory- CTAB, no wheeze or rhonchi Gastrointestinal-nontender, bowel sound+. Nondistended Musculoskeletal-no acute joint swelling or tenderness or redness Lower extremity- right foot ulcer with a black eschar on the medial and inferior surface of the foot, with redness and skin excoriation of the rest of the foot Neurological- cranial nerves intact, no acute dysarthria or dysphagia Psychiatry- denies depression or SI or HI Skin- right foot ulcer with a black eschar on the medial and inferior surface of the foot, with redness and skin excoriation of the rest of the foot Labs/Diagnostic Data Labs Test 02/04/25 05:02 02/03/25 11:30 02/03/25 08:40 02/02/25 19:30 Range/Units White Blood Count 10.8 4.4-10.8 10^3/uL Red Blood Count 2.59 L 4.5-5.90 10^6/uL Hemoglobin 6.9 #*L 13.5-17.5 g/dL Hematocrit 21.6 #L 41.0-53.0 % Mean Corpuscular Volume 83.5 80.0-100.0 fL Mean Corpuscular Hemoglobin 26.6 L 28.0-32.0 pg Mean Corpuscular Hemoglobin Concent 31.8 L 32.0-36.0 g/dL Red Cell Distribution Width 19.0 H 11.8-14.3 % Platelet Count 247 140-450 10^3/uL Mean Platelet Volume 7.4 6.9-10.8 fL Neutrophils (%) (Auto) 81.4 H 37.0-80.0 % Lymphocytes (%) (Auto) 8.0 L 10.0-50.0 % Monocytes (%) (Auto) 9.2 0.0-12.0 % Eosinophils (%) (Auto) 1.1 0.0-7.0 % Basophils (%) (Auto) 0.3 0.0-2.0 % Neutrophils # (Auto) 8.8 H 1.6-8.6 10 ^3/uL Lymphocytes # (Auto) 0.9 0.4-5.4 10 ^3/uL Monocytes # (Auto) 1.0 0-1.3 10 ^3/uL Eosinophils # (Auto) 0.1 0-0.8 10 ^3/uL Basophils # (Auto) 0 0-0.2 10 ^3/uL Nucleated Red Blood Cells 0.0 % Platelet Estimate Adequate Addison Cells Few Sodium Level 133 L 136-145 mmol/L Potassium Level 3.7 3.5-5.1 mmol/L Chloride Level 104 98-107 mmol/L Carbon Dioxide Level 24 20-31 mmol/L Anion Gap 5 5-15 Blood Urea Nitrogen 12 9-23 mg/dL Creatinine 0.41 L 0.700-1.30 mg/dL Glomerular Filtration Rate Calc 119 >90 mL/min BUN/Creatinine Ratio 29.3 H 10.0-20.0 Serum Glucose 104 74-106 mg/dL Calcium Level 7.2 L 8.7-10.4 mg/dL Magnesium Level 1.9 1.6-2.6 mg/dL Total Bilirubin 0.3 0.2-1.0 mg/dL Aspartate Amino Transferase (AST) 94 H 13-40 U/L Alanine Aminotransferase (ALT) 45 H 7-40 U/L Alkaline Phosphatase 60 46-116 U/L Total Protein 5.0 L 5.7-8.2 g/dL Albumin 2.2 L 3.2-4.8 g/dL Ammonia < 10 L 11-32 umol/L Direct Bilirubin 0.2 <0.3 mg/dL HIV (1&2) Antibody Negative Negative Vancomycin Level Trough 17.6 H 5-10 ug/mL Test 02/02/25 16:55 01/31/25 23:25 01/31/25 13:20 01/30/25 15:00 Range/Units B-Type Natriuretic Peptide 176.28 0-100 pg/mL Prothrombin Time 12.4 H 9.3-11.8 sec Prothrombin Time INR 1.19 H 0.9-1.15 Activated Partial Thromboplast Time 29.8 24.5-34.5 SEC Stool Occult Blood Positive Negative Stool Occult Blood Sample #3 Negative Haptoglobin 288 32-363 mg/dL Test 01/30/25 12:14 01/30/25 11:20 01/30/25 07:38 01/29/25 23:38 Range/Units Lactate Dehydrogenase 278 H 120-246 U/L Urine Color Light-red Yellow Urine Clarity Cloudy H Clear Urine pH 6.0 5.0-9.0 Urine Specific [place] 1.014 1.001-1.035 Urine Protein 1+ H Negative Urine Ketones Negative Negative Urine Blood 3+ H Negative /uL Urine Nitrite Negative Negative Urine Bilirubin Negative Negative Urine Urobilinogen Normal Negative mg/dL Urine Leukocyte Esterase 1+ Negative /uL Urine RBC 7434 0 - 3 /hpf Urine Microscopic WBC 35 H 0-3 /HPF Urine Squamous Epithelial Cells Few <5 /hpf Urine Bacteria Few H None Seen /hpf Urine Mucus Few None Seen Urine Glucose Normal Normal mg/dL Urine Opiates Screen Neg NEGATIVE Urine Fentanyl Screen Neg NEGATIVE Urine Barbiturates Screen Neg NEGATIVE Urine Phencyclidine Screen Neg NEGATIVE Urine Amphetamines Screen Neg NEGATIVE Urine Benzodiazepines Screen Neg NEGATIVE Urine Cocaine Screen Neg NEGATIVE Urine Cannabinoids Screen Neg NEGATIVE Lactic Acid Level 1.1 0.4-2.0 mmol/L Reticulocyte Count (auto) 3.67 H 0.5-1.5 % Fibrinogen 385 H 177-375 mg/dL Iron Level 23 L 65-175 ug/dL Total Iron Binding Capacity 239 L 250-425 ug/dL Percent Iron Saturation 9.6 L 20-55 % Ferritin 42.6 22-322 ng/mL Test 01/29/25 14:20 01/29/25 06:53 01/28/25 13:15 Range/Units Vitamin B1 Level 174.6 66.5-200.0 nmol/L Plasma/Serum Blood Alcohol < 3.0 <10 mg/dL Hemoglobin A1c 5.3 <5.7 % A1C Vitamin B12 Level 972 H 211-911 pg/mL Folic Acid 8.67 >5.38 ng/mL Thyroid Stimulating Hormone (TSH) 3.97 0.55-4.78 uIU/mL Polychromasia Slight Hypochromasia (manual) Slight Anisocytosis (manual) Slight Troponin I High Sensitivity 6 </=54 ng/L Microbiology Date/Time Source Procedure Growth Status 02/03/25 08:40 Blood Blood Culture - Preliminary NO GROWTH AFTER 24 HOURS OF INCUBATION. Resulted 01/30/25 18:49 Foot Right Gram Stain - Final Resulted 01/30/25 18:49 Wound Culture - Preliminary Pseudomonas aeruginosa Resulted 01/30/25 11:20 Voided Urine Urine Culture - Final Complete Assessment Severe anemia, S/P BT - pRBC Likely GI bleeding. FOBT Positive Peripheral artery disease AFib Metabolic encephalopathy Sepsis likely due to right foot cellulitis Necrotizing soft tissue infection of the right foot Plan/Recommendation FOBT positive Monitor lab Protonix IV b.i.d., Carafate May need EGD/ Colonoscopy patient is clinically stable Transfuse if hemoglobin is less than 7 Avoid NSAIDs, aspirin, caustic agents Acetabular management as per primary team Thank you so much for the opportunity to consult on your patient. GI team will follow the patient Case an action plan discussed with Dr. Aiyana Saldana. Complex care planning needed total 49 minutes of detailed discussion. The patient and caregiver team agreed to the plan. Plan discussed with: Patient KIRILLBUD RESIDENT Feb 04, 2025 10:00
[2025-02-04] MEDS: SPIRONOLACTONE 25 MG TAB PO SCH (10:14)
[2025-02-04] MEDS: FUROSEMIDE 20 MG TAB PO SCH (10:17)
--- NOTE | 2025-02-04 10:19 | DVHPNRES ---
Progress Note Date Seen: Feb 04, 2025 Resident Creating Document: BILLY MORENO Medical Necessity Reason Pt with a Central, PICC or Fol: No The following are medically ne: Aviles Catheter Subjective Review of Systems This is a 64-year-old cachectic male with PMH of HTN, PAD, BPH, vasculopathy, Hqfy-ro-xbgiduln stenosis of the juxtarenal abdominal aorta. Iemc-zi-kdpfpmwz stenosis of the superior mesenteric. 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 Jptc-pr-qgurjexf stenosis of the left renal artery. 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 and recent bilateral lower extremity stent placement presents to ED with chief complaint of generalized weakness since he left rehab center three days ago. He had his blood drawn at the rehab center for which has showed hemoglobin of 5.9. The patient was instructed to go to the nearest ER for blood transfusion. He denied bloody stool and hematemesis. He denies taking anticoagulant. The patient reports heavy alcohol abuse quit four months ago. The patient hemoglobin found to be 5.4 with lactic acid 4.3. UDS negative, serum alcohol< 3.0. . Upon evaluating patient in ER bed 12, notable foul odor noted to his right foot with dressing in place. The dressing was saturated removed and multiple open sores with pus were present. The patient states that his right leg wound has been dressed two days ago and currently under treatment without being prescribed any antibiotics. The patient is currently receiving packed red blood cell transfusion. The patient is concerned about his symptoms and would like to be further evaluated and treated. The patient will be admitted under hospitalist care to the telemetry unit for continuous monitoring. The patient denies fever, chills, headache, dizziness, palpitation, chest pain, nausea, vomiting, abdominal pain, diarrhea, constipation and other associated symptoms. The plan has been discussed with the patient in which all questions concerns have been addressed. Initial lab workup revealed leukocytosis with WBC 17.4, severe anemia with a hemoglobin 5.4. UDS negative, serum alcohol< 3.0. CXR-No pulmonary airspace consolidation. Ultrasound of the abdomen revealed- Atrophic right kidney. Distended bladder with debris. Gallbladder sludge.Bladder volume measures 1848 cc. Doppler study of the lower extremity negative for DVT. Arterial Doppler of the lower extremity revealed no flow seen in the right distal superficial femoral artery, right anterior tibial and dorsalis pedis artery. CT abdomen and pelvis revealed moderate ascites, cirrhotic liver. Colonic diverticulosis, small bilateral pleural effusion with overlying compressive atelectasis. CT head negative for acute intracranial abnormality. CT abdomen and pelvis revealed moderate ascites, cirrhotic liver. Colonic diverticulosis, small bilateral pleural effusion with overlying compressive atelectasis. CT angio with run off revealed- Advanced atherosclerotic disease. Qhgd-bg-xhesxigz stenosis of the infrarenal abdominal aorta partially imaged. High-grade stenosis or focal occlusion of the proximal right common iliac artery. Occluded right superficial femoral and popliteal arteries. 2-vessel runoff to the right foot via the anterior tibial and peroneal arteries. Moderate high-grade stenosis of the left common iliac artery. Occluded distal left superficial femoral artery and popliteal arteries. Ascites. PMH-HTN, PAD, BPH, Xpmu-aj-ywwthnaj stenosis of the juxtarenal abdominal aorta. Pkfc-ch-aiszawdj stenosis of the superior mesenteric. 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 Kixr-bz-yktmblku stenosis of the left renal artery. High- grade stenosis or occlusion of the proximal right common iliac artery. PSH- status post bilateral lower extremity stent Allergy- Personal History/ Social History- history of alcoholism but exacerbation patient did not drink alcohol last couple of months when he was in rehab. Patient was seen today at the bedside. Patient Cardiovascular- deny acute chest pain or shortness of breath or cough or palpitation Respiratory denies cough or short of breath or wheezing Gastrointestinal- denies any rectal bleeding, nausea or vomiting Musculoskeletal-denies acute joint swelling or tenderness or redness Neurological- denies acute dysarthria, dysphagia, change in vision Psychiatry- denies depression or SI or HI Skin- denies acute rash or purpura Patient was seen today for clinical evaluation. Labs and chart reviewed. Blood culture preliminary negative. Patient's hemoglobin dropped to 6.9 today, ordered blood transfusion. Patient was seen by Gastroenterology, recommendation reviewed and appreciated. Recommended to continue with the pantoprazole and sucralfate, possible EGD. Patient is due for possible revascularization on Thursday by Dr. Adames. Provider spoke to patient's daughter, ,, discussed patient's current medical condition, plan of care and answered her question. Objective vital signs Vital Sign Date Time Temp Pulse Resp B/P (MAP) Pulse Ox O2 Delivery O2 Flow Rate FiO2 4/26/25 08:27 16 95 Room Air* 0 21 02/04/25 05:00 98.3 98 96/49 (65) 98.3 Total Intake and Output 02/03/25 02/03/25 02/04/25 15:00 23:00 07:00 Intake Total 1200 ml 850 ml Output Total 1050 ml 1200 ml Balance 150 ml -350 ml medications Current Medications Medications Dose Ordered Sig/Omar Route Start Time Stop Time Status Last Admin Dose Admin Acetaminophen/ Hydrocodone Bitart 1 tab Q4HP PRN PO 01/28/25 19:00 02/04/25 04:45 1 TAB Ascorbic Acid 500 mg BID PO 01/28/25 22:00 02/03/25 21:30 500 MG Acetaminophen 650 mg Q6HP PRN PO 01/28/25 19:00 Nitroglycerin 0.4 mg Q5MINP PRN SL 01/28/25 19:00 Morphine Sulfate 2 mg Q30M PRN IV 01/28/25 19:00 01/29/25 13:03 2 MG Aspirin 81 mg DAILY PO 01/29/25 10:00 Hold 01/31/25 10:49 81 MG Atorvastatin Calcium 80 mg HS PO 01/28/25 22:00 02/03/25 21:28 80 MG Cilostazol 100 mg BID PO 01/28/25 22:00 02/03/25 21:29 100 MG Minoxidil 5 mg DAILY PO 01/29/25 10:00 01/31/25 10:52 5 MG Nicotine 1 patch DAILY TD 01/29/25 10:00 02/03/25 10:33 1 PATCH Tamsulosin HCl 0.4 mg DAILY PO 01/29/25 10:00 Hold 01/31/25 10:53 0.4 MG Cefepime HCl 50 ml @ 12.5 mls/hr Q12HR IV 01/29/25 22:00 02/03/25 21:58 12.5 MLS/HR Vancomycin HCl 0 ml @ 0 mls/hr UD IV 01/29/25 15:00 Vancomycin HCl 250 ml @ 200 mls/hr Q12H IV 01/29/25 20:00 02/04/25 07:55 200 MLS/HR Haloperidol Lactate 5 mg Q8HP PRN IM 01/29/25 17:00 01/30/25 22:01 5 MG Folic Acid 1 mg/ Dextrose 50.2 ml @ 200.8 mls/ hr DAILY INJ 01/31/25 10:00 UNV Folic Acid 1 mg DAILY PO 01/31/25 10:00 02/03/25 10:32 1 MG Multivitamins/ Minerals 1 tab DAILY PO 02/01/25 10:00 02/03/25 10:32 1 TAB Enteral Nutritional Formula 240 ml TID PO 02/02/25 14:00 02/03/25 14:07 240 ML Thiamine HCl 250 mg DAILY IV 02/03/25 10:00 02/08/25 09:59 UNV Thiamine HCl 250 mg/Dextrose 52.5 ml @ 100 mls/hr DAILY IV 02/03/25 10:00 02/07/25 10:32 02/03/25 14:28 100 MLS/HR Metoprolol Tartrate 12.5 mg BID PO 02/02/25 22:00 02/03/25 21:36 12.5 MG Enoxaparin Sodium 60 mg DAILY SC 02/03/25 10:00 Hold 02/02/25 23:24 60 MG Pantoprazole Sodium 40 mg BID IV 02/02/25 22:00 02/03/25 21:28 40 MG Sucralfate 1 gm QIDACHS PO 02/02/25 22:00 02/04/25 06:12 1 GM Lactulose 30 ml BID PO 02/03/25 10:45 Furosemide 20 mg DAILY PO 02/04/25 10:00 Spironolactone 25 mg DAILY PO 02/04/25 10:00 Examination General examination- patient is awake , alert HEENT- PEERLA, no acute nasal discharge Cardiovascular- S1-S2 audible, rate and rhythm regular, no murmur Respiratory- CTAB, no wheeze or rhonchi Gastrointestinal-nontender, bowel sound+. Nondistended Musculoskeletal-no acute joint swelling or tenderness or redness Lower extremity- right foot ulcer with a black eschar on the medial and inferior surface of the foot, with redness and skin excoriation of the rest of the foot Neurological- cranial nerves intact, no acute dysarthria or dysphagia Psychiatry- denies depression or SI or HI Skin- right foot ulcer with a black eschar on the medial and inferior surface of the foot, with redness and skin excoriation of the rest of the foot laboratory and microbiology Laboratory Tests 02/04/25 05:02 Test 02/04/25 05:02 Range/Units Serum Glucose 104 74-106 mg/dL Microbiology Date/Time Source Procedure Growth Status 02/03/25 08:40 Blood Blood Culture - Preliminary NO GROWTH AFTER 24 HOURS OF INCUBATION. Resulted 01/30/25 18:49 Foot Right Gram Stain - Final Resulted 01/30/25 18:49 Wound Culture - Preliminary Pseudomonas aeruginosa Resulted 01/30/25 11:20 Voided Urine Urine Culture - Final Complete Problem List/Assessment/Plan Problem List/Assessment/Plan Assessment and plan--patient with severe vasculopathy with the peripheral arterial disease, possible wernicks encephalopathy, right foot cellulitis with wet gangrene. Had 1 more unit of blood transfusion due to dropped hemoglobin to 6.9, status post gastroenterology consult, recommended for continuing with pantoprazole and sucralfate. Possible endoscopy and/or colonoscopy. Patient is due for revascularization by Dr. Avila on Thursday. Sepsis likely due to right foot cellulitis right foot ulcer with a black eschar on the medial and inferior surface of the foot, with redness and skin excoriation of the rest of the foot\ Right foot cellulitis with a blackish care Necrotizing soft tissue infection of the right foot Right foot abscess Right foot wet gangrene Right foot osteomyelitis Severe anemia, S/P BT - pRBC Likely GI bleeding. FOBT Positive Acute retention of urine likely due to BPH Metabolic encephalopathy/toxic encephalopathy Suspected Wernicke's encephalopathy Peripheral arterial disease A-Fib/AV roslyn reentry tachycardia/paroxysmal SVT Severe vasculopathy BPH Constipation Hyperlipidemia Hypertension Ruled out UTI CT angio with run off revealed- Advanced atherosclerotic disease. Yiby-ll-kyavfijy stenosis of the infrarenal abdominal aorta partially imaged. High-grade stenosis or focal occlusion of the proximal right common iliac artery. Occluded right superficial femoral and popliteal arteries. 2-vessel runoff to the right foot via the anterior tibial and peroneal arteries. Moderate high-grade stenosis of the left common iliac artery. Occluded distal left superficial femoral artery and popliteal arteries. Ascites. Patient on atrial fibrillation. Started carvedilol. Pending Echo 2D. Spoke to vascular surgeon Dr. Martinez, recommended arteriogram in label press operator on Thursday. Plan Blood culture negative Wound culture revealed E coli, MRSA, Pseudomonas aeruginosa, Providencia stuartii. CT abdomen and pelvis revealed moderate ascites, cirrhotic liver. Colonic diverticulosis, small bilateral pleural effusion with overlying compressive atelectasis On 02/02/2025-x-ray of [facility]-nonobstructive gas pattern 02/03/2024 CT angio with run off revealed- Advanced atherosclerotic disease. Vrue-nq-esznypht stenosis of the infrarenal abdominal aorta partially imaged. High-grade stenosis or focal occlusion of the proximal right common iliac artery. Occluded right superficial femoral and popliteal arteries. 2-vessel runoff to the right foot via the anterior tibial and peroneal arteries. Moderate high-grade stenosis of the left common iliac artery. Occluded distal left superficial femoral artery and popliteal arteries. Ascites. Continue cefepime and vancomycin as prescribed Continue pain medication as prescribed Pantoprazole as prescribed Tamsulosin 0.4 mg p.o. daily Cilostazol 100 mg p.o. b.i.d. Atorvastatin 80 mg p.o. HS Aspirin 81 mg p.o. daily Metoprolol tartrate 12.5 mg p.o. b.i.d. Continue thiamine as prescribed Continue folic acid as prescribed spironolactone 25 mg q.d., Lasix 20 mg p.o. daily. Spoke to vascular surgeon Dr. Martinez, recommended arteriogram in label press operator on Thursday. Status post gastroenterology consult, recommendation to continue with the pantoprazole and sucralfate. Possible endoscopy. Bedside ultrasound revealed minimal ascitic fluid, no pocket of ampule fluid to be drawn. Bladder call us likely due to patient is a Aviles's catheter. No other significant consult. CPT code 48041 Goals of care, Code status ; discussed with >15 minutes PUD prophylaxis: Pantoprazole DVT prophylaxis: Patient was severe anemia Plan discussed with Dr. Cotton , nursing staff, Total time spent on patient evaluation, chart review, assessment and plan, discussion discussion >35 minutes Plan discussed with: Patient, Daughter, Other (RN) My Orders My Orders Orders - BILLY MORENO RESIDENT Procedure Category Date Status Time Kub Abdomen Single XY 02/03/25 Resulted View 10:34 Lactulose Oral PHA 02/03/25 In Process 10:45 Furosemide Tablet PHA 02/04/25 In Process (Lasix Tablet) 10:00 Hepatitis C Antibody LAB 02/03/25 In Process 10:57 Spironolactone PHA 02/04/25 In Process (Aldactone) 10:00 Packedcells -Active BBK 02/04/25 Logged Bleeding 07:29 Pulse Ox Cont Per Day RT 02/04/25 Logged 07:29 Type And Screen BBK 02/04/25 Logged 07:53 * Gi Dvh Machine Applicator Cementer CONS 02/04/25 Transmitted 07:56 Tap Water Enema ORDERS 02/04/25 Transmitted 07:59 Dietary Evaluation Review Recommendations by RD: Increase Calorie Intake, Protein Supplementation Comments: 1) Ensure Enlive 240ml QID (ordered per ONS protocol) 2) Jose A 1 pk BID (ordered per ONS protocol) 3) Continue current POC Expected Outcomes/Goals: wound healing to improve to meet 75% estimated energy & protein needs fu 3-5 days Interpretation of weight loss: >10% in 6 months Fluid Accumulation (Non Severe: Mild fluid retention Protein Calorie Malnutrition: Severe Is there a minimum of two crit: Yes CC Plasma Assessment Blood Product Administration S: 21:52 Date of Service: Feb 04, 2025 Billing Provider: DOLORES KAT MD Common Visit Codes: [id number] INP/OBS CARE(HIGH) BILLY MORENO RESIDENT Feb 04, 2025 10:18 DOLORES KAT MD February 11, 2025 21:35
[2025-02-04 19:53] LABS: Basophils # (auto) 0.1 10 ^3/uL (0-0.2); Eosinophils # (auto) 0.1 10 ^3/uL (0-0.8); Eosinophils % (auto) 0.8 % (0.0-7.0); Hemoglobin 8.6 g/dL (13.5-17.5); Mean Corpuscular Volume 83.3 fL (80.0-100.0); Monocytes # (auto) 1.2 10 ^3/uL (0-1.3); Neutrophils # (auto) 9.6 10 ^3/uL (1.6-8.6); White Blood Cell 12.2 10^3/uL (4.4-10.8)
[2025-02-04 19:55] LABS: Basophils % (auto) 0.5 % (0.0-2.0); Lymphocytes # (auto) 1.2 10 ^3/uL (0.4-5.4); Lymphocytes % (auto) 10.1 % (10.0-50.0); Mean Corpuscular Hemoglobin 26.5 pg (28.0-32.0); Mean Corpuscular Hgb Conc. 31.8 g/dL (32.0-36.0); Neutrophils % (auto) 78.6 % (37.0-80.0); Nucleated Red Blood Cells % 0.1 %; Platelet Count (auto) 257 10^3/uL (140-450); Red Blood Cells 3.25 10^6/uL (4.5-5.90); Red Cell Distribution Width 18.5 % (11.8-14.3)
--- NOTE | 2025-02-04 20:54 | DVHPN2 ---
Progress Note - Dictate Date Seen: Feb 04, 2025 Medical Necessity Reason Pt with a Central, PICC or Fol: No The following are medically ne: Aviles Catheter Subjective Patient was seen and evaluated in follow up. Patient is complaining of generalized pain. WBC 12.2, HGB 8.6, HCT 27, AST 94, ALT 45. Patient is due for possible revascularization on Thursday by Dr. Adames. Telemetry reviewed. vital signs Vital Sign Date Time Temp Pulse Resp B/P (MAP) Pulse Ox O2 Delivery O2 Flow Rate FiO2 02/04/25 17:30 98.3 100 18 120/63 98.3 02/04/25 17:00 96 02/04/25 08:27 Room Air* 0 21 Total Intake and Output 02/03/25 02/03/25 02/04/25 15:00 23:00 07:00 Intake Total 1200 ml 850 ml Output Total 1050 ml 1200 ml Balance 150 ml -350 ml medications Current Medications Medications Dose Ordered Sig/Omar Route Start Time Stop Time Status Last Admin Dose Admin Acetaminophen/ Hydrocodone Bitart 1 tab Q4HP PRN PO 01/28/25 19:00 02/04/25 13:36 1 TAB Ascorbic Acid 500 mg BID PO 01/28/25 22:00 02/04/25 10:15 500 MG Acetaminophen 650 mg Q6HP PRN PO 01/28/25 19:00 Nitroglycerin 0.4 mg Q5MINP PRN SL 01/28/25 19:00 Morphine Sulfate 2 mg Q30M PRN IV 01/28/25 19:00 01/29/25 13:03 2 MG Atorvastatin Calcium 80 mg HS PO 01/28/25 22:00 02/03/25 21:28 80 MG Cilostazol 100 mg BID PO 01/28/25 22:00 02/04/25 10:14 100 MG Minoxidil 5 mg DAILY PO 01/29/25 10:00 02/04/25 10:18 5 MG Nicotine 1 patch DAILY TD 01/29/25 10:00 02/03/25 10:33 1 PATCH Tamsulosin HCl 0.4 mg DAILY PO 01/29/25 10:00 Hold 01/31/25 10:53 0.4 MG Cefepime HCl 50 ml @ 12.5 mls/hr Q12HR IV 01/29/25 22:00 02/04/25 10:16 12.5 MLS/HR Vancomycin HCl 0 ml @ 0 mls/hr UD IV 01/29/25 15:00 Vancomycin HCl 250 ml @ 200 mls/hr Q12H IV 01/29/25 20:00 02/04/25 07:55 200 MLS/HR Haloperidol Lactate 5 mg Q8HP PRN IM 01/29/25 17:00 01/30/25 22:01 5 MG Folic Acid 1 mg/ Dextrose 50.2 ml @ 200.8 mls/ hr DAILY INJ 01/31/25 10:00 UNV Folic Acid 1 mg DAILY PO 01/31/25 10:00 02/04/25 10:16 1 MG Multivitamins/ Minerals 1 tab DAILY PO 02/01/25 10:00 02/04/25 10:15 1 TAB Enteral Nutritional Formula 240 ml TID PO 02/02/25 14:00 02/04/25 13:48 240 ML Thiamine HCl 250 mg DAILY IV 02/03/25 10:00 02/08/25 09:59 UNV Thiamine HCl 250 mg/Dextrose 52.5 ml @ 100 mls/hr DAILY IV 02/03/25 10:00 02/07/25 10:32 02/04/25 10:18 100 MLS/HR Metoprolol Tartrate 12.5 mg BID PO 02/02/25 22:00 02/04/25 10:16 12.5 MG Pantoprazole Sodium 40 mg BID IV 02/02/25 22:00 02/04/25 10:16 40 MG Sucralfate 1 gm QIDACHS PO 02/02/25 22:00 02/04/25 18:02 1 GM Lactulose 30 ml BID PO 02/03/25 10:45 02/04/25 10:14 30 ML Furosemide 20 mg DAILY PO 02/04/25 10:00 02/04/25 10:17 20 MG Spironolactone 25 mg DAILY PO 02/04/25 10:00 02/04/25 10:14 25 MG objective GENERAL: Alert and oriented x 3. No acute distress. EYES: PERRL, EOMI. Anicteric. HENT: Moist mucous membranes. LUNGS: Clear to auscultation bilaterally. CARDIOVASCULAR: Regular rate and rhythm. ABDOMEN: Soft, nontender and nondistended. EXTREMITIES: No edema. NEUROLOGIC: No focal neurological deficits. SKIN: Warm, dry. laboratory and microbiology Laboratory Tests 02/04/25 19:21 02/04/25 05:02 Test 02/04/25 05:02 Range/Units Serum Glucose 104 74-106 mg/dL Problem List Atrioventricular roslyn reentry tachycardia. Questionable atrial fibrillation. Nonsustained ventricular tachycardia. Peripheral arterial disease status post bilateral lower extremity stents. Rule out structural heart disease. Hypertension. Hyperlipidemia. Severe anemia requiring PRBC transfusion. GI bleed with positive Hemoccult. Hypokalemia. Sepsis. Right foot osteomyelitis. Necrotizing wound to right foot. Assessment/Plan Continued all current supportive medical care. Morphine and [place] for pain management. Lipitor, Metoprolol. IV antibiotics as ordered. Diuretics with Lasix. GI prophylactics. Nitro SL. Additional plan as per the hospital course. Dietary Evaluation Review Recommendations by RD: Increase Calorie Intake, Protein Supplementation Comments: 1) Ensure Enlive 240ml QID (ordered per ONS protocol) 2) Jose A 1 pk BID (ordered per ONS protocol) 3) Continue current POC Expected Outcomes/Goals: wound healing to improve to meet 75% estimated energy & protein needs fu 3-5 days Interpretation of weight loss: >10% in 6 months Fluid Accumulation (Non Severe: Mild fluid retention Protein Calorie Malnutrition: Severe Is there a minimum of two crit: Yes Plan discussed with: Patient CC Plasma Assessment Blood Product Administration S: [id number] DEWAYNE SAMANO MD Feb 04, 2025 20:13
[2025-02-05] VITALS (9 sets, daily range): BP systolic 91–139; BP diastolic 46–69; PULSE 80–111; RESP 16–23; TEMP 97.6–99.7; O2SAT 92–100
[2025-02-05 07:51] LABS: Basophils # (auto) 0.1 10 ^3/uL (0-0.2); Basophils % (auto) 0.7 % (0.0-2.0); Eosinophils # (auto) 0.2 10 ^3/uL (0-0.8); Eosinophils % (auto) 1.4 % (0.0-7.0); Hematocrit 26.2 % (41.0-53.0); Hemoglobin 8.5 g/dL (13.5-17.5); Lymphocytes # (auto) 1.1 10 ^3/uL (0.4-5.4); Lymphocytes % (auto) 9.2 % (10.0-50.0); Mean Corpuscular Hemoglobin 26.7 pg (28.0-32.0); Mean Corpuscular Hgb Conc. 32.3 g/dL (32.0-36.0); Mean Corpuscular Volume 82.7 fL (80.0-100.0); Monocytes # (auto) 1.1 10 ^3/uL (0-1.3); Monocytes % (auto) 9.3 % (0.0-12.0); Neutrophils # (auto) 9.6 10 ^3/uL (1.6-8.6); Neutrophils % (auto) 79.4 % (37.0-80.0); Platelet Count (auto) 254 10^3/uL (140-450); Red Blood Cells 3.17 10^6/uL (4.5-5.90); Red Cell Distribution Width 18.5 % (11.8-14.3); White Blood Cell 12.1 10^3/uL (4.4-10.8)
[2025-02-05 08:15] LABS: Alkaline Phosphatase 95 U/L (46-116); Anion Gap 8 (5-15); BUN/Creatinine Ratio 31.3 (10.0-20.0); Blood Urea Nitrogen 15 mg/dL (9-23); Carbon Dioxide 25 mmol/L (20-31); Chloride 101 mmol/L (98-107); Glucose 104 mg/dL (74-106); Magnesium 1.7 mg/dL (1.6-2.6); Potassium 3.8 mmol/L (3.5-5.1); Sodium 134 mmol/L (136-145); Total Protein 6.1 g/dL (5.7-8.2)
[2025-02-05 08:16] LABS: Alanine Aminotransferase 57 U/L (7-40); Albumin 2.6 g/dL (3.2-4.8); Aspartate Aminotransferase 86 U/L (13-40); Bilirubin, Total 0.5 mg/dL (0.2-1.0); Calcium 7.9 mg/dL (8.7-10.4)
[2025-02-05] MEDS ORDERED: PROPOFOL 10 MG/ML 20 ML IV ONE (13:03)
--- NOTE | 2025-02-05 13:30 | DVHOP2 ---
Operative Report DATE OF OPERATION: 02/05/25 PROCEDURE: Upper Endoscopy with biopsy. PREOPERATIVE INDICATION: The patient is a 64 -year-old male undergoing endoscopy for evaluation anemia and drop in hemoglobin hematocrit POSTOPERATIVE DIAGNOSES: 1. Patient had a 1-2 cm sliding-type hiatal hernia with grade A erosive es ophagitis 2. Mild gastroduodenitis with superficial pre-pyloric and duodenal erosions 3. Otherwise normal examination up to the 2nd and 3rd part of the duodenum with good bile drainage and no active bleeding PROCEDURE PERFORMED BY: Fernando Saldana GI NURSE: Diana SCOPE: Olympus videoendoscope. ASA CLASS: 3 PREOPERATIVE MEDICATIONS: Mac sedation PROCEDURE IN DETAIL: After obtaining an informed consent, the patient was placed on left lateral decubitus position. The patient was then sedated with the above medications. A bite block was placed between his teeth. The endoscope was then passed through the oropharynx, into the esophagus, and through the stomach and pylorus up to the second and third part of the duodenum. The endoscope was then withdrawn. The 2nd and 3rd part of the duodenum were normal and there was a good bile drainage The duodenal bulb showed mild erosions. The pre-pyloric area and antrum showed mild gastritis with pre-pyloric antral gastric erosions and tiny ulcers On retroflexion the fundus cardia and angularis were normal. Duodenal and gastric biopsies were obtained. The endoscope was then withdrawn into distal esophagus where the patient had a 1-2 cm sliding-type hiatal hernia with grade a erosive esophagitis GE junction biopsies were obtained. The remaining distal and proximal esophagus and oropharynx were unremarkable The patient tolerated the procedure well without difficulty. COMPLICATIONS : None SPECIMENS: Duodenal biopsies Gastric biopsies GE junction biopsies DISPOSITION: Transfer back to the floor Stable PLAN: 1. Await for biopsy result 2. Will place pt on Protonix 40 mg bid IV 3. Carafate 1 g p.o. twice a day 4. Resume GI soft diet advance as tolerated 5. Patient may proceed with his foot surgery in a.m. 6. Outpatient follow up with GI Services for elective colonoscopy once the pat ient has recovered from his current illness FERNANDO SALDANA MD Feb 05, 2025 13:30
--- NOTE | 2025-02-05 16:20 | DVHPNRES ---
Progress Note Date Seen: Feb 05, 2025 Resident Creating Document: COY JIMENEZ YAAKOV Has the PT tested + for MRSA If YES, has PT been informed?: No Medical Necessity Reason Pt with a Central, PICC or Fol: No The following are medically ne: Aviles Catheter Subjective Review of Systems Patient seen and examined at the bedside. Patient is complaining of generalized weakness and bilateral lower limb pain. Patient reports: No new complaints Changes from previous H/P or p: No Changes Objective vital signs Vital Sign Date Time Temp Pulse Resp B/P (MAP) Pulse Ox O2 Delivery O2 Flow Rate FiO2 02/05/25 13:05 Mask 5.0 95 02/05/25 13:00 99.1 94 20 110/62 (81) 93 99.1 Total Intake and Output 02/04/25 02/04/25 02/05/25 15:00 23:00 07:00 Intake Total 980 ml 755 ml Output Total 1050 ml 2600 ml Balance -70 ml -1845 ml medications Current Medications Medications Dose Ordered Sig/Omar Route Start Time Stop Time Status Last Admin Dose Admin Acetaminophen/ Hydrocodone Bitart 1 tab Q4HP PRN PO 01/28/25 19:00 02/05/25 11:26 1 TAB Ascorbic Acid 500 mg BID PO 01/28/25 22:00 02/04/25 21:31 500 MG Acetaminophen 650 mg Q6HP PRN PO 01/28/25 19:00 Nitroglycerin 0.4 mg Q5MINP PRN SL 01/28/25 19:00 Morphine Sulfate 2 mg Q30M PRN IV 01/28/25 19:00 01/29/25 13:03 2 MG Atorvastatin Calcium 80 mg HS PO 01/28/25 22:00 02/04/25 21:33 80 MG Cilostazol 100 mg BID PO 01/28/25 22:00 02/04/25 21:31 100 MG Minoxidil 5 mg DAILY PO 01/29/25 10:00 02/04/25 10:18 5 MG Nicotine 1 patch DAILY TD 01/29/25 10:00 02/05/25 11:25 1 PATCH Tamsulosin HCl 0.4 mg DAILY PO 01/29/25 10:00 Hold 01/31/25 10:53 0.4 MG Cefepime HCl 50 ml @ 12.5 mls/hr Q12HR IV 01/29/25 22:00 02/05/25 15:58 12.5 MLS/HR Vancomycin HCl 0 ml @ 0 mls/hr UD IV 01/29/25 15:00 Vancomycin HCl 250 ml @ 200 mls/hr Q12H IV 01/29/25 20:00 02/05/25 11:26 200 MLS/HR Haloperidol Lactate 5 mg Q8HP PRN IM 01/29/25 17:00 01/30/25 22:01 5 MG Folic Acid 1 mg/ Dextrose 50.2 ml @ 200.8 mls/ hr DAILY INJ 01/31/25 10:00 UNV Folic Acid 1 mg DAILY PO 01/31/25 10:00 02/04/25 10:16 1 MG Multivitamins/ Minerals 1 tab DAILY PO 02/01/25 10:00 02/04/25 10:15 1 TAB Enteral Nutritional Formula 240 ml TID PO 02/02/25 14:00 02/04/25 22:09 240 ML Thiamine HCl 250 mg DAILY IV 02/03/25 10:00 02/08/25 09:59 UNV Thiamine HCl 250 mg/Dextrose 52.5 ml @ 100 mls/hr DAILY IV 02/03/25 10:00 02/07/25 10:32 02/05/25 13:50 100 MLS/HR Metoprolol Tartrate 12.5 mg BID PO 02/02/25 22:00 02/04/25 21:33 12.5 MG Pantoprazole Sodium 40 mg BID IV 02/02/25 22:00 02/05/25 11:17 40 MG Sucralfate 1 gm QIDACHS PO 02/02/25 22:00 02/04/25 21:33 1 GM Lactulose 30 ml BID PO 02/03/25 10:45 02/04/25 21:33 30 ML Furosemide 20 mg DAILY PO 02/04/25 10:00 02/04/25 10:17 20 MG Spironolactone 25 mg DAILY PO 02/04/25 10:00 02/04/25 10:14 25 MG Examination General examination- patient is awake , alert HEENT- PEERLA, no acute nasal discharge Cardiovascular- S1-S2 audible, rate and rhythm regular, no murmur Respiratory- CTAB, no wheeze or rhonchi Gastrointestinal-nontender, bowel sound+. Nondistended Musculoskeletal-no acute joint swelling or tenderness or redness Lower extremity- right foot ulcer with a black eschar on the medial and inferior surface of the foot, with redness and skin excoriation of the rest of the foot Neurological- cranial nerves intact, no acute dysarthria or dysphagia Psychiatry- denies depression or SI or HI Skin- right foot ulcer with a black eschar on the medial and inferior surface of the foot, with redness and skin excoriation of the rest of the foot laboratory and microbiology Laboratory Tests 02/05/25 05:31 Test 02/05/25 05:31 Range/Units Serum Glucose 104 74-106 mg/dL Microbiology Date/Time Source Procedure Growth Status 02/03/25 08:40 Blood Blood Culture - Preliminary NO GROWTH AFTER 48 HOURS OF INCUBATION. Resulted 01/30/25 18:49 Foot Right Gram Stain - Final Complete 01/30/25 18:49 Wound Culture - Final Pseudomonas aeruginosa Stenotrophomonas maltophilia Enterococcus faecalis Methicillin Resistant S.aureus Complete 01/30/25 11:20 Voided Urine Urine Culture - Final Complete Labs and/or images reviewed: Labs reviewed by me, Image(s) reviewed by me Problem List/Assessment/Plan Problem List/Assessment/Plan Assessment and plan--patient with severe vasculopathy with the peripheral arterial disease, possible wernicks encephalopathy, right foot cellulitis with wet gangrene. Had 1 more unit of blood transfusion due to dropped hemoglobin to 6.9, status post gastroenterology consult, recommended for continuing with pantoprazole and sucralfate. Possible endoscopy and/or colonoscopy. Patient is due for revascularization by Dr. Avila on Thursday. Sepsis likely due to right foot cellulitis right foot ulcer with a black eschar on the medial and inferior surface of the foot, with redness and skin excoriation of the rest of the foot\ Right foot cellulitis with a blackish care Necrotizing soft tissue infection of the right foot Right foot abscess Right foot wet gangrene Right foot osteomyelitis Severe anemia, S/P BT - pRBC Likely GI bleeding. FOBT Positive Acute retention of urine likely due to BPH Metabolic encephalopathy/toxic encephalopathy Suspected Wernicke's encephalopathy Peripheral arterial disease A-Fib/AV roslyn reentry tachycardia/paroxysmal SVT Severe vasculopathy BPH Constipation Hyperlipidemia Hypertension Ruled out UTI CT angio with run off revealed- Advanced atherosclerotic disease. Ntmu-vb-hxuspiry stenosis of the infrarenal abdominal aorta partially imaged. High-grade stenosis or focal occlusion of the proximal right common iliac artery. Occluded right superficial femoral and popliteal arteries. 2-vessel runoff to the right foot via the anterior tibial and peroneal arteries. Moderate high-grade stenosis of the left common iliac artery. Occluded distal left superficial femoral artery and popliteal arteries. Ascites. Patient on atrial fibrillation. Started carvedilol. Pending Echo 2D. Spoke to vascular surgeon Dr. Martinez, recommended arteriogram in cath lab radiology technician on Thursday. Plan Blood culture negative Wound culture revealed E coli, MRSA, Pseudomonas aeruginosa, Providencia stuartii. CT abdomen and pelvis revealed moderate ascites, cirrhotic liver. Colonic diverticulosis, small bilateral pleural effusion with overlying compressive atelectasis On 02/02/2025-x-ray of [facility]-nonobstructive gas pattern 02/03/2024 CT angio with run off revealed- Advanced atherosclerotic disease. Yxhx-it-ahxgddut stenosis of the infrarenal abdominal aorta partially imaged. High-grade stenosis or focal occlusion of the proximal right common iliac artery. Occluded right superficial femoral and popliteal arteries. 2-vessel runoff to the right foot via the anterior tibial and peroneal arteries. Moderate high-grade stenosis of the left common iliac artery. Occluded distal left superficial femoral artery and popliteal arteries. Ascites. Continue cefepime and vancomycin as prescribed Continue pain medication as prescribed Pantoprazole as prescribed Tamsulosin 0.4 mg p.o. daily Cilostazol 100 mg p.o. b.i.d. Atorvastatin 80 mg p.o. HS Aspirin 81 mg p.o. daily Metoprolol tartrate 12.5 mg p.o. b.i.d. Continue thiamine as prescribed Continue folic acid as prescribed spironolactone 25 mg q.d., Lasix 20 mg p.o. daily. PUD prophylaxis: Pantoprazole DVT prophylaxis: Patient was severe anemia Stool occult blood test was positive, GI performed endoscopy, had a 1-2 cm sliding-type hiatal hernia with grade A erosive esophagitis with mild gastroduodenitis with superficial pre-pyloric and duodenal erosions. Patient is planned for arteriogram and possible bypass by vascular surgeon Dr. Martinez, tomorrow. Plan discussed with Dr. Cotton , nursing staff, Plan discussed with: Patient, Other (RN) Dietary Evaluation Review Recommendations by RD: Increase Calorie Intake, Protein Supplementation Comments: 1) Ensure Enlive 240ml QID (ordered per ONS protocol) 2) Jose A 1 pk BID (ordered per ONS protocol) 3) Continue current POC Expected Outcomes/Goals: wound healing to improve to meet 75% estimated energy & protein needs fu 3-5 days Interpretation of weight loss: >10% in 6 months Fluid Accumulation (Non Severe: Mild fluid retention Protein Calorie Malnutrition: Severe Is there a minimum of two crit: Yes CC Plasma Assessment Blood Product Administration S: 15:10 Date of Service: Feb 05, 2025 Billing Provider: DOLORES KAT MD Common Visit Codes: [id number] INP/OBS CARE(HIGH) COY JIMENEZ RESDIENT Feb 05, 2025 16:20 DOLORES KAT MD February 11, 2025 21:10
--- NOTE | 2025-02-05 23:30 | DVHPN2 ---
Progress Note - Dictate Date Seen: Feb 05, 2025 Medical Necessity Reason Pt with a Central, PICC or Fol: No The following are medically ne: Aviles Catheter Subjective Patient was seen and evaluated in follow up. Patient is complaining of generalized pain. Patient underwent upper endoscopy which showed a 1-2 cm sliding-type hiatal hernia with grade A erosive esophagitis. Mild gastroduodenitis with superficial pre-pyloric and duodenal erosions. Otherwise normal examination up to the 2nd and 3rd part of the duodenum with good bile drainage and no active bleeding. WBC 12.1, HGB 8.5, HCT 26.2, NA 134, AST 86, ALT 57. Telemetry reviewed. vital signs Vital Sign Date Time Temp Pulse Resp B/P (MAP) Pulse Ox O2 Delivery O2 Flow Rate FiO2 02/05/25 13:05 Mask 5.0 95 02/05/25 13:00 99.1 94 20 110/62 (78) 93 99.1 Total Intake and Output 02/04/25 02/04/25 02/05/25 15:00 23:00 07:00 Intake Total 980 ml 755 ml Output Total 1050 ml 2600 ml Balance -70 ml -1845 ml medications Current Medications Medications Dose Ordered Sig/Omar Route Start Time Stop Time Status Last Admin Dose Admin Acetaminophen/ Hydrocodone Bitart 1 tab Q4HP PRN PO 01/28/25 19:00 02/05/25 11:26 1 TAB Ascorbic Acid 500 mg BID PO 01/28/25 22:00 02/04/25 21:31 500 MG Acetaminophen 650 mg Q6HP PRN PO 01/28/25 19:00 Nitroglycerin 0.4 mg Q5MINP PRN SL 01/28/25 19:00 Morphine Sulfate 2 mg Q30M PRN IV 01/28/25 19:00 01/29/25 13:03 2 MG Atorvastatin Calcium 80 mg HS PO 01/28/25 22:00 02/04/25 21:33 80 MG Cilostazol 100 mg BID PO 01/28/25 22:00 02/04/25 21:31 100 MG Minoxidil 5 mg DAILY PO 01/29/25 10:00 02/04/25 10:18 5 MG Nicotine 1 patch DAILY TD 01/29/25 10:00 02/05/25 11:25 1 PATCH Tamsulosin HCl 0.4 mg DAILY PO 01/29/25 10:00 Hold 01/31/25 10:53 0.4 MG Cefepime HCl 50 ml @ 12.5 mls/hr Q12HR IV 01/29/25 22:00 02/04/25 21:42 12.5 MLS/HR Vancomycin HCl 0 ml @ 0 mls/hr UD IV 01/29/25 15:00 Vancomycin HCl 250 ml @ 200 mls/hr Q12H IV 01/29/25 20:00 02/05/25 11:26 200 MLS/HR Haloperidol Lactate 5 mg Q8HP PRN IM 01/29/25 17:00 01/30/25 22:01 5 MG Folic Acid 1 mg/ Dextrose 50.2 ml @ 200.8 mls/ hr DAILY INJ 01/31/25 10:00 UNV Folic Acid 1 mg DAILY PO 01/31/25 10:00 02/04/25 10:16 1 MG Multivitamins/ Minerals 1 tab DAILY PO 02/01/25 10:00 02/04/25 10:15 1 TAB Enteral Nutritional Formula 240 ml TID PO 02/02/25 14:00 02/04/25 22:09 240 ML Thiamine HCl 250 mg DAILY IV 02/03/25 10:00 02/08/25 09:59 UNV Thiamine HCl 250 mg/Dextrose 52.5 ml @ 100 mls/hr DAILY IV 02/03/25 10:00 02/07/25 10:32 02/05/25 13:50 100 MLS/HR Metoprolol Tartrate 12.5 mg BID PO 02/02/25 22:00 02/04/25 21:33 12.5 MG Pantoprazole Sodium 40 mg BID IV 02/02/25 22:00 02/05/25 11:17 40 MG Sucralfate 1 gm QIDACHS PO 02/02/25 22:00 02/04/25 21:33 1 GM Lactulose 30 ml BID PO 02/03/25 10:45 02/04/25 21:33 30 ML Furosemide 20 mg DAILY PO 02/04/25 10:00 02/04/25 10:17 20 MG Spironolactone 25 mg DAILY PO 02/04/25 10:00 02/04/25 10:14 25 MG objective GENERAL: Alert and oriented x 3. No acute distress. EYES: PERRL, EOMI. Anicteric. HENT: Moist mucous membranes. LUNGS: Clear to auscultation bilaterally. CARDIOVASCULAR: Regular rate and rhythm. ABDOMEN: Soft, nontender and nondistended. EXTREMITIES: No edema. NEUROLOGIC: No focal neurological deficits. SKIN: Warm, dry. laboratory and microbiology Laboratory Tests 02/05/25 05:31 Test 02/05/25 05:31 Range/Units Serum Glucose 104 74-106 mg/dL Problem List Atrioventricular roslyn reentry tachycardia. Questionable atrial fibrillation. Nonsustained ventricular tachycardia. Peripheral arterial disease status post bilateral lower extremity stents. Rule out structural heart disease. Hypertension. Hyperlipidemia. Severe anemia requiring PRBC transfusion. GI bleed with positive Hemoccult. Hypokalemia. Sepsis. Right foot osteomyelitis. Necrotizing wound to right foot. Assessment/Plan Continued all current supportive medical care. Morphine and [place] for pain management. Lipitor, Metoprolol. IV antibiotics as ordered. Diuretics with Lasix. GI prophylactics. Nitro SL. Additional plan as per the hospital course. Dietary Evaluation Review Recommendations by RD: Increase Calorie Intake, Protein Supplementation Comments: 1) Ensure Enlive 240ml QID (ordered per ONS protocol) 2) Jose A 1 pk BID (ordered per ONS protocol) 3) Continue current POC Expected Outcomes/Goals: wound healing to improve to meet 75% estimated energy & protein needs fu 3-5 days Interpretation of weight loss: >10% in 6 months Fluid Accumulation (Non Severe: Mild fluid retention Protein Calorie Malnutrition: Severe Is there a minimum of two crit: Yes Plan discussed with: Patient CC Plasma Assessment Blood Product Administration S: 15:10 DEWAYNE SAMANO MD Feb 05, 2025 15:53
[2025-02-06] VITALS (14 sets, daily range): BP systolic 103–148; BP diastolic 55–92; PULSE 66–115; RESP 16–23; TEMP 97.6–98.6; O2SAT 91–96
[2025-02-06 06:25] LABS: Basophils # (auto) 0.1 10 ^3/uL (0-0.2); Basophils % (auto) 0.5 % (0.0-2.0); Eosinophils # (auto) 0.1 10 ^3/uL (0-0.8); Eosinophils % (auto) 1.4 % (0.0-7.0); Hematocrit 25.8 % (41.0-53.0); Hemoglobin 8.5 g/dL (13.5-17.5); Lymphocytes # (auto) 1.4 10 ^3/uL (0.4-5.4); Lymphocytes % (auto) 13.4 % (10.0-50.0); Mean Corpuscular Hemoglobin 27.1 pg (28.0-32.0); Mean Corpuscular Hgb Conc. 32.8 g/dL (32.0-36.0); Mean Corpuscular Volume 82.5 fL (80.0-100.0); Neutrophils # (auto) 7.6 10 ^3/uL (1.6-8.6); Neutrophils % (auto) 74.7 % (37.0-80.0); Nucleated Red Blood Cells % 0.1 %; Platelet Count (auto) 261 10^3/uL (140-450); Red Blood Cells 3.13 10^6/uL (4.5-5.90); Red Cell Distribution Width 19.1 % (11.8-14.3); White Blood Cell 10.2 10^3/uL (4.4-10.8)
[2025-02-06 06:40] LABS: Anion Gap 8 (5-15); BUN/Creatinine Ratio 27.7 (10.0-20.0); Blood Urea Nitrogen 13 mg/dL (9-23); Carbon Dioxide 26 mmol/L (20-31); Chloride 101 mmol/L (98-107); Potassium 3.8 mmol/L (3.5-5.1)
[2025-02-06 06:43] LABS: Alanine Aminotransferase 57 U/L (7-40); Albumin 2.6 g/dL (3.2-4.8); Aspartate Aminotransferase 90 U/L (13-40); Bilirubin, Total 0.2 mg/dL (0.2-1.0); Calcium 7.9 mg/dL (8.7-10.4); Glucose 163 mg/dL (74-106); Sodium 135 mmol/L (136-145)
[2025-02-06 06:48] LABS: Alkaline Phosphatase 101 U/L (46-116)
--- NOTE | 2025-02-06 10:44 | ECG ---
[facility] Test Date: 2025-02-02 Test Time: 14:55:58 Pat Name: BOB PIERRE Department: Respiratoy Room: 0208T A Gender: M Schedule Announcer: kdlvlarry : 1960 Requested By: DEWAYNE SAMANO Order Number: [id number] Reading MD: Tevin Ambriz Measurements Intervals [place] Rate: 107 P: 25 ID: [id number] QRS: 38 QRSD: 74 T: 0 QT: 383 QTc: 511 Interpretive Statements Sinus tachycardia with irregular rate Low voltage, extremity leads Nonspecific T abnormalities, lateral leads Prolonged QT interval Electronically Signed On 02-08-2025 15:51:32 PDT by Tevin Ambriz Please click the below link to view image of tracing.
[2025-02-06] MEDS: IODIXANOL 320MG/ML 100ML BTL IV ONE (12:51)
[2025-02-06] MEDS: ANGIOMAX 250 MG VIAL IV ONE (13:13)
[2025-02-06] MEDS: MIDAZOLAM HCL 2MG/2ML 2ml VIAL (1mg/ml) ONE (13:13)
[2025-02-06] MEDS: fentaNYL CITRATE 100 MCG/2 ML VL ONE (13:13)
[2025-02-06] MEDS: SODIUM CHL 0.9% 50 ML ONE (13:14)
[2025-02-06] MEDS: LIDOCAINE 2%HCL (LOCAL ANESTH.) INJ 20ML MDV ONE (13:14)
[2025-02-06] MEDS: HEPARIN SODIUM (PORCINE) 5000 UNITS/ML 1ML VIAL ONE (13:34)
--- NOTE | 2025-02-06 13:59 | DVHOP2 ---
Operative Report - 2 Report Details Date: 02/06/25 Preop Diagnosis: Right foot gangrene severe peripheral vascular disease Postop Diagnosis: Same. Surgeon: Wyatt Cali MD Anesthesiologist: Anton Anesthesia: Mac Consent: The patient was informed of the risks and benefits of the procedure. These include but are not limited to complications of anesthesia, postoperative infection, incomplete relief of symptoms, recurrence of symptoms, damage to b lood vessels, nerves and tendons, deep venous thrombosis, pulmonary embolism and possible need for repeat surgery in the future. Name of Procedure Performed Aortogram with right lower extremity arteriogram right common iliac artery an gioplasty Procedure Details Procedure Details: Patient was identified in the preop hold area is being Mr. Gideon perez. He was consented and preopped by myself he was brought back to the culture media laboratory assistant placed on the culture media laboratory assistant table in a supine position after adequate induction of anesthesia right and left groins were prepped and draped in normal surgical fashion 1% lidocaine was injected above the left common femoral artery. Using a 4 Russian micropuncture needle the left common femoral artery was cannulated was exchanged out for a 6 Russian sheath wire was then passed up into the aorta. An aortogram and bilateral lower extremity arteriogram was performed this demonstrated heavily calcified aorta with a high-grade stenosis of the right common iliac artery. The common femoral artery on the left was patent. The right external iliac artery was patent the common femoral artery on the right was patent profunda was patent. The SFA was occluded distally at the level of the adductor canal were prior stents were placed. At this point in time a wire and catheter were used to traverse across the high-grade right common iliac artery stenosis. 3000 units of heparin was given to the patient. A 45 cm destination sheath was then passed over the bifurcation into the common iliac artery a 8 x 4 balloon was then used angioplasty of the right common iliac artery. Completion angiogram demonstrated 10% residual stenosis. At this point in time wire and catheter were pulled back a 6 Russian Angio-Seal was deployed in the left common femoral artery. Manual pressure was held for approximately 5 minutes. Patient was taken to the recovery room in stable condition. Condition Good Disposition pacu WYATT CALI Jr., MD Feb 06, 2025 13:59
--- NOTE | 2025-02-06 15:02 | DVHPN2 ---
Progress Note Date Seen: Feb 06, 2025 Resident Creating Document: BUD ROY RESIDENT Has the PT tested + for MRSA If YES, has PT been informed?: No Medical Necessity Reason Pt with a Central, PICC or Fol: No The following are medically ne: Aviles Catheter Subjective Review of Systems Patient seen and examined at the bedside. EGD done yesterday which showed sliding hiatal hernia with a resume esophagitis and mild gastroduodenitis. Today patient underwent for vascular surgery. Advanced diet as tolerates after the procedure. Objective vital signs Vital Sign Date Time Temp Pulse Resp B/P (MAP) Pulse Ox O2 Delivery O2 Flow Rate FiO2 02/06/25 14:27 98 23 107/59 (75) 95 02/06/25 14:01 98.3 98.3 02/06/25 08:10 Room Air* 0 21 Total Intake and Output 02/05/25 02/05/25 02/06/25 15:00 23:00 07:00 Intake Total 302.5 ml 460 ml 480 ml Output Total 2000 ml 700 ml Balance 302.5 ml -1540 ml -220 ml medications Current Medications Medications Dose Ordered Sig/Omar Route Start Time Stop Time Status Last Admin Dose Admin Acetaminophen/ Hydrocodone Bitart 1 tab Q4HP PRN PO 01/28/25 19:00 02/06/25 10:35 1 TAB Ascorbic Acid 500 mg BID PO 01/28/25 22:00 02/06/25 10:19 500 MG Acetaminophen 650 mg Q6HP PRN PO 01/28/25 19:00 Nitroglycerin 0.4 mg Q5MINP PRN SL 01/28/25 19:00 Morphine Sulfate 2 mg Q30M PRN IV 01/28/25 19:00 01/29/25 13:03 2 MG Atorvastatin Calcium 80 mg HS PO 01/28/25 22:00 02/05/25 21:45 80 MG Cilostazol 100 mg BID PO 01/28/25 22:00 02/06/25 10:19 100 MG Minoxidil 5 mg DAILY PO 01/29/25 10:00 02/06/25 10:19 5 MG Nicotine 1 patch DAILY TD 01/29/25 10:00 02/05/25 11:25 1 PATCH Tamsulosin HCl 0.4 mg DAILY PO 01/29/25 10:00 Hold 01/31/25 10:53 0.4 MG Cefepime HCl 50 ml @ 12.5 mls/hr Q12HR IV 01/29/25 22:00 02/06/25 10:17 12.5 MLS/HR Vancomycin HCl 0 ml @ 0 mls/hr UD IV 01/29/25 15:00 Vancomycin HCl 250 ml @ 200 mls/hr Q12H IV 01/29/25 20:00 02/06/25 08:15 200 MLS/HR Haloperidol Lactate 5 mg Q8HP PRN IM 01/29/25 17:00 01/30/25 22:01 5 MG Folic Acid 1 mg/ Dextrose 50.2 ml @ 200.8 mls/ hr DAILY INJ 01/31/25 10:00 UNV Folic Acid 1 mg DAILY PO 01/31/25 10:00 02/06/25 10:19 1 MG Multivitamins/ Minerals 1 tab DAILY PO 02/01/25 10:00 02/06/25 10:18 1 TAB Enteral Nutritional Formula 240 ml TID PO 02/02/25 14:00 02/05/25 14:00 240 ML Thiamine HCl 250 mg DAILY IV 02/03/25 10:00 02/08/25 09:59 UNV Thiamine HCl 250 mg/Dextrose 52.5 ml @ 100 mls/hr DAILY IV 02/03/25 10:00 02/07/25 10:32 02/06/25 10:36 100 MLS/HR Metoprolol Tartrate 12.5 mg BID PO 02/02/25 22:00 02/06/25 10:24 12.5 MG Pantoprazole Sodium 40 mg BID IV 02/02/25 22:00 02/06/25 10:18 40 MG Sucralfate 1 gm QIDACHS PO 02/02/25 22:00 02/06/25 08:15 1 GM Lactulose 30 ml BID PO 02/03/25 10:45 02/06/25 10:19 30 ML Furosemide 20 mg DAILY PO 02/04/25 10:00 02/06/25 10:20 20 MG Spironolactone 25 mg DAILY PO 02/04/25 10:00 02/06/25 10:19 25 MG Examination General examination- patient is awake , alert HEENT- PEERLA, no acute nasal discharge Cardiovascular- S1-S2 audible, rate and rhythm regular, no murmur Respiratory- CTAB, no wheeze or rhonchi Gastrointestinal-nontender, bowel sound+. Nondistended Musculoskeletal-no acute joint swelling or tenderness or redness Lower extremity- right foot ulcer with a black eschar on the medial and inferior surface of the foot, with redness and skin excoriation of the rest of the foot Neurological- cranial nerves intact, no acute dysarthria or dysphagia Psychiatry- denies depression or SI or HI Skin- right foot ulcer with a black eschar on the medial and inferior surface of the foot, with redness and skin excoriation of the rest of the foot laboratory and microbiology Laboratory Tests 02/06/25 05:38 Test 02/06/25 05:38 Range/Units Serum Glucose 163 H 74-106 mg/dL Microbiology Date/Time Source Procedure Growth Status 02/03/25 08:40 Blood Blood Culture - Preliminary NO GROWTH AFTER 72 HOURS OF INCUBATION. Resulted 01/30/25 18:49 Foot Right Gram Stain - Final Complete 01/30/25 18:49 Wound Culture - Final Pseudomonas aeruginosa Stenotrophomonas maltophilia Enterococcus faecalis Methicillin Resistant S.aureus Complete 01/30/25 11:20 Voided Urine Urine Culture - Final Complete Labs and/or images reviewed: Labs reviewed by me, Image(s) reviewed by me Problem List/Assessment/Plan Problem List/Assessment/Plan Hiatal hernia Gradient erosive esophagitis Mild gastroduodenitis Severe anemia, S/P BT - pRBC Likely GI bleeding. FOBT Positive Peripheral artery disease AFib Metabolic encephalopathy Sepsis likely due to right foot cellulitis Necrotizing soft tissue infection of the right foot Plan: -Protonix 40 mg IV b.i.d. -Carafate 1 g p.o. twice a day -Resume GI soft diet and advanced as tolerated -Patient underwent foot surgery today -Outpatient follow up with the GI for elective colonoscopy once patient is recovered from his current illness Thank you so much for the opportunity to consult on your patient. GI team will follow the patient Case an action plan discussed with Dr. Aiyana Saldana. Complex care planning needed total 49 minutes of detailed discussion. Plan discussed with: Patient Dietary Evaluation Review Recommendations by RD: Increase Calorie Intake, Protein Supplementation Comments: 1) Ensure Enlive 240ml QID (ordered per ONS protocol) 2) Jose A 1 pk BID (ordered per ONS protocol) 3) Continue current POC Expected Outcomes/Goals: wound healing to improve to meet 75% estimated energy & protein needs fu 3-5 days Interpretation of weight loss: >10% in 6 months Fluid Accumulation (Non Severe: Mild fluid retention Protein Calorie Malnutrition: Severe Is there a minimum of two crit: Yes CC Plasma Assessment Blood Product Administration S: 15:10 BUD ROY RESIDENT Feb 06, 2025 15:02
--- NOTE | 2025-02-06 17:13 | DVHPNRES ---
Progress Note Date Seen: Feb 06, 2025 Resident Creating Document: BILLY MORENO RESIDENT Has the PT tested + for MRSA If YES, has PT been informed?: No Medical Necessity Reason Pt with a Central, PICC or Fol: No The following are medically ne: Aviles Catheter Subjective Review of Systems This is a 64-year-old cachectic male with PMH of HTN, PAD, BPH, vasculopathy, Uqbo-cs-ummwxzqv stenosis of the juxtarenal abdominal aorta. Iycy-zx-ercjkzwh stenosis of the superior mesenteric. 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 Qxmj-jh-tvkxzkgv stenosis of the left renal artery. 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 and recent bilateral lower extremity stent placement presents to ED with chief complaint of generalized weakness since he left rehab center three days ago. He had his blood drawn at the rehab center for which has showed hemoglobin of 5.9. The patient was instructed to go to the nearest ER for blood transfusion. He denied bloody stool and hematemesis. He denies taking anticoagulant. The patient reports heavy alcohol abuse quit four months ago. The patient hemoglobin found to be 5.4 with lactic acid 4.3. UDS negative, serum alcohol< 3.0. . Upon evaluating patient in ER bed 12, notable foul odor noted to his right foot with dressing in place. The dressing was saturated removed and multiple open sores with pus were present. The patient states that his right leg wound has been dressed two days ago and currently under treatment without being prescribed any antibiotics. The patient is currently receiving packed red blood cell transfusion. The patient is concerned about his symptoms and would like to be further evaluated and treated. The patient will be admitted under hospitalist care to the telemetry unit for continuous monitoring. The patient denies fever, chills, headache, dizziness, palpitation, chest pain, nausea, vomiting, abdominal pain, diarrhea, constipation and other associated symptoms. The plan has been discussed with the patient in which all questions concerns have been addressed. Initial lab workup revealed leukocytosis with WBC 17.4, severe anemia with a hemoglobin 5.4. UDS negative, serum alcohol< 3.0. CXR-No pulmonary airspace consolidation. Ultrasound of the abdomen revealed- Atrophic right kidney. Distended bladder with debris. Gallbladder sludge.Bladder volume measures 1848 cc. Doppler study of the lower extremity negative for DVT. Arterial Doppler of the lower extremity revealed no flow seen in the right distal superficial femoral artery, right anterior tibial and dorsalis pedis artery. CT abdomen and pelvis revealed moderate ascites, cirrhotic liver. Colonic diverticulosis, small bilateral pleural effusion with overlying compressive atelectasis. CT head negative for acute intracranial abnormality. CT abdomen and pelvis revealed moderate ascites, cirrhotic liver. Colonic diverticulosis, small bilateral pleural effusion with overlying compressive atelectasis. CT angio with run off revealed- Advanced atherosclerotic disease. Uiho-hb-wlctcnwx stenosis of the infrarenal abdominal aorta partially imaged. High-grade stenosis or focal occlusion of the proximal right common iliac artery. Occluded right superficial femoral and popliteal arteries. 2-vessel runoff to the right foot via the anterior tibial and peroneal arteries. Moderate high-grade stenosis of the left common iliac artery. Occluded distal left superficial femoral artery and popliteal arteries. Ascites. PMH-HTN, PAD, BPH, Geub-ko-ltiqnbzn stenosis of the juxtarenal abdominal aorta. Hdug-ld-afwgdqah stenosis of the superior mesenteric. 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 Ghas-fo-gxyqdqkq stenosis of the left renal artery. High- grade stenosis or occlusion of the proximal right common iliac artery. PSH- status post bilateral lower extremity stent Allergy- Personal History/ Social History- history of alcoholism but exacerbation patient did not drink alcohol last couple of months when he was in rehab. Patient was seen today at the bedside. Patient Cardiovascular- deny acute chest pain or shortness of breath or cough or palpitation Respiratory denies cough or short of breath or wheezing Gastrointestinal- denies any rectal bleeding, nausea or vomiting Musculoskeletal-denies acute joint swelling or tenderness or redness Neurological- denies acute dysarthria, dysphagia, change in vision Psychiatry- denies depression or SI or HI Skin- denies acute rash or purpura Patient was seen today for clinical evaluation. Labs and chart reviewed. Patient had Aortogram with right lower extremity arteriogram right common iliac artery angioplasty, status post stent placement. As per Dr. Cali patient is scheduled for right above-knee amputation tomorrow. Patient was also seen by monitoring analyst, recommendation reviewed and appreciated. Gastroenterology recommended for outpatient colonoscopy once patient was recommended from his current illness. Provider spoke to patient's daughter, ,, discussed patient's current medical condition, plan of care and answered her question. Objective vital signs Vital Sign Date Time Temp Pulse Resp B/P (MAP) Pulse Ox O2 Delivery O2 Flow Rate FiO2 02/06/25 15:00 87 20 124/64 (84) 95 02/06/25 14:01 98.3 98.3 02/06/25 08:10 Room Air* 0 21 Total Intake and Output 02/05/25 02/05/25 02/06/25 15:00 23:00 07:00 Intake Total 302.5 ml 460 ml 480 ml Output Total 2000 ml 700 ml Balance 302.5 ml -1540 ml -220 ml medications Current Medications Medications Dose Ordered Sig/Omar Route Start Time Stop Time Status Last Admin Dose Admin Acetaminophen/ Hydrocodone Bitart 1 tab Q4HP PRN PO 01/28/25 19:00 02/06/25 10:35 1 TAB Ascorbic Acid 500 mg BID PO 01/28/25 22:00 02/06/25 10:19 500 MG Acetaminophen 650 mg Q6HP PRN PO 01/28/25 19:00 Nitroglycerin 0.4 mg Q5MINP PRN SL 01/28/25 19:00 Morphine Sulfate 2 mg Q30M PRN IV 01/28/25 19:00 01/29/25 13:03 2 MG Atorvastatin Calcium 80 mg HS PO 01/28/25 22:00 02/05/25 21:45 80 MG Cilostazol 100 mg BID PO 01/28/25 22:00 02/06/25 10:19 100 MG Minoxidil 5 mg DAILY PO 01/29/25 10:00 02/06/25 10:19 5 MG Nicotine 1 patch DAILY TD 01/29/25 10:00 02/05/25 11:25 1 PATCH Tamsulosin HCl 0.4 mg DAILY PO 01/29/25 10:00 Hold 01/31/25 10:53 0.4 MG Cefepime HCl 50 ml @ 12.5 mls/hr Q12HR IV 01/29/25 22:00 02/06/25 10:17 12.5 MLS/HR Vancomycin HCl 0 ml @ 0 mls/hr UD IV 01/29/25 15:00 Vancomycin HCl 250 ml @ 200 mls/hr Q12H IV 01/29/25 20:00 02/06/25 08:15 200 MLS/HR Haloperidol Lactate 5 mg Q8HP PRN IM 01/29/25 17:00 01/30/25 22:01 5 MG Folic Acid 1 mg/ Dextrose 50.2 ml @ 200.8 mls/ hr DAILY INJ 01/31/25 10:00 UNV Folic Acid 1 mg DAILY PO 01/31/25 10:00 02/06/25 10:19 1 MG Multivitamins/ Minerals 1 tab DAILY PO 02/01/25 10:00 02/06/25 10:18 1 TAB Enteral Nutritional Formula 240 ml TID PO 02/02/25 14:00 02/05/25 14:00 240 ML Thiamine HCl 250 mg DAILY IV 02/03/25 10:00 02/08/25 09:59 UNV Thiamine HCl 250 mg/Dextrose 52.5 ml @ 100 mls/hr DAILY IV 02/03/25 10:00 02/07/25 10:32 02/06/25 10:36 100 MLS/HR Metoprolol Tartrate 12.5 mg BID PO 02/02/25 22:00 02/06/25 10:24 12.5 MG Pantoprazole Sodium 40 mg BID IV 02/02/25 22:00 02/06/25 10:18 40 MG Sucralfate 1 gm QIDACHS PO 02/02/25 22:00 02/06/25 08:15 1 GM Lactulose 30 ml BID PO 02/03/25 10:45 02/06/25 10:19 30 ML Furosemide 20 mg DAILY PO 02/04/25 10:00 02/06/25 10:20 20 MG Spironolactone 25 mg DAILY PO 02/04/25 10:00 02/06/25 10:19 25 MG Examination General examination- patient is awake , alert HEENT- PEERLA, no acute nasal discharge Cardiovascular- S1-S2 audible, rate and rhythm regular, no murmur Respiratory- CTAB, no wheeze or rhonchi Gastrointestinal-nontender, bowel sound+. Nondistended Musculoskeletal-no acute joint swelling or tenderness or redness Lower extremity- right foot ulcer with a black eschar on the medial and inferior surface of the foot, with redness and skin excoriation of the rest of the foot Neurological- cranial nerves intact, no acute dysarthria or dysphagia Psychiatry- denies depression or SI or HI Skin- right foot ulcer with a black eschar on the medial and inferior surface of the foot, with redness and skin excoriation of the rest of the foot laboratory and microbiology Laboratory Tests 02/06/25 05:38 Test 02/06/25 05:38 Range/Units Serum Glucose 163 H 74-106 mg/dL Microbiology Date/Time Source Procedure Growth Status 02/03/25 08:40 Blood Blood Culture - Preliminary NO GROWTH AFTER 72 HOURS OF INCUBATION. Resulted 01/30/25 18:49 Foot Right Gram Stain - Final Complete 01/30/25 18:49 Wound Culture - Final Pseudomonas aeruginosa Stenotrophomonas maltophilia Enterococcus faecalis Methicillin Resistant S.aureus Complete 01/30/25 11:20 Voided Urine Urine Culture - Final Complete Problem List/Assessment/Plan Problem List/Assessment/Plan Assessment and plan--Patient had Aortogram with right lower extremity arteriogram right common iliac artery angioplasty, status post stent placement. As per Dr. Cali patient is scheduled for right above-knee amputation tomorrow. Patient was also seen by monitoring analyst, recommendation reviewed and appreciated. Gastroenterology recommended for outpatient colonoscopy once patient was recommended from his current illness. Sepsis likely due to right foot cellulitis right foot ulcer with a black eschar on the medial and inferior surface of the foot, with redness and skin excoriation of the rest of the foot\ Right foot cellulitis with a blackish care Necrotizing soft tissue infection of the right foot Right foot abscess Right foot wet gangrene Right foot osteomyelitis Severe anemia, S/P BT - pRBC Likely GI bleeding. FOBT Positive Acute retention of urine likely due to BPH Metabolic encephalopathy/toxic encephalopathy Suspected Wernicke's encephalopathy Peripheral arterial disease A-Fib/AV roslyn reentry tachycardia/paroxysmal SVT Severe vasculopathy BPH Constipation Hyperlipidemia Hypertension Ruled out UTI CT angio with run off revealed- Advanced atherosclerotic disease. Xgoz-lg-mfzcjnen stenosis of the infrarenal abdominal aorta partially imaged. High-grade stenosis or focal occlusion of the proximal right common iliac artery. Occluded right superficial femoral and popliteal arteries. 2-vessel runoff to the right foot via the anterior tibial and peroneal arteries. Moderate high-grade stenosis of the left common iliac artery. Occluded distal left superficial femoral artery and popliteal arteries. Ascites. Patient had Aortogram with right lower extremity arteriogram right common iliac artery angioplasty, status post stent placement. On 02/05/2025- GI- endoscopy, had a 1-2 cm sliding-type hiatal hernia with grade A erosive esophagitis with mild gastroduodenitis with superficial pre- pyloric and duodenal erosions. Plan Blood culture negative Wound culture revealed E coli, MRSA, Pseudomonas aeruginosa, Providencia stuartii. CT abdomen and pelvis revealed moderate ascites, cirrhotic liver. Colonic diverticulosis, small bilateral pleural effusion with overlying compressive atelectasis On 02/02/2025-x-ray of [facility]-nonobstructive gas pattern 02/03/2024 CT angio with run off revealed- Advanced atherosclerotic disease. Dcyg-tq-pzigsciy stenosis of the infrarenal abdominal aorta partially imaged. High-grade stenosis or focal occlusion of the proximal right common iliac artery. Occluded right superficial femoral and popliteal arteries. 2-vessel runoff to the right foot via the anterior tibial and peroneal arteries. Moderate high-grade stenosis of the left common iliac artery. Occluded distal left superficial femoral artery and popliteal arteries. Ascites. Continue cefepime and vancomycin as prescribed Continue pain medication as prescribed Pantoprazole as prescribed Tamsulosin 0.4 mg p.o. daily Cilostazol 100 mg p.o. b.i.d. Atorvastatin 80 mg p.o. HS Aspirin 81 mg p.o. daily Metoprolol tartrate 12.5 mg p.o. b.i.d. Continue thiamine as prescribed Continue folic acid as prescribed spironolactone 25 mg q.d., Lasix 20 mg p.o. daily. As per Dr. Cali patient is scheduled for right above-knee amputation tomorrow. Goals of care, Code status ; discussed with >15 minutes PUD prophylaxis: Pantoprazole DVT prophylaxis: SCD Plan discussed with Dr. Cotton , nursing staff, Total time spent on patient evaluation, chart review, assessment and plan, discussion discussion >35 minutes Plan discussed with: Patient, Daughter, Other (RN) My Orders My Orders Orders - BILLY MORENO RESIDENT Procedure Category Date Status Time Npo Except Ice Chips ORDERS 02/06/25 Transmitted 06:13 Communication Order ORDERS 02/06/25 Transmitted 08:12 Communication Order ORDERS 02/06/25 Transmitted 09:51 * Hematology/Oncology CONS 02/06/25 Transmitted Consult 13:37 Dietary Evaluation Review Recommendations by RD: Increase Calorie Intake, Protein Supplementation Comments: 1) Ensure Enlive 240ml QID (ordered per ONS protocol) 2) Jose A 1 pk BID (ordered per ONS protocol) 3) Continue current POC Expected Outcomes/Goals: wound healing to improve to meet 75% estimated energy & protein needs fu 3-5 days Interpretation of weight loss: >10% in 6 months Fluid Accumulation (Non Severe: Mild fluid retention Protein Calorie Malnutrition: Severe Is there a minimum of two crit: Yes CC Plasma Assessment Blood Product Administration S: 15:10 Date of Service: Feb 06, 2025 Billing Provider: DOLORES KAT MD Common Visit Codes: [id number] INP/OBS CARE(HIGH) BILLY MORENO RESIDENT Feb 06, 2025 17:13 DOLORES KAT MD February 11, 2025 20:55
[2025-02-06] MEDS: HYDROcodone-ACET 5/325MG TAB PO PRN (22:49)
--- NOTE | 2025-02-06 22:51 | DVHPN2 ---
Progress Note - Dictate Date Seen: Feb 06, 2025 Has the PT tested + for MRSA If YES, has PT been informed?: No Medical Necessity Reason Pt with a Central, PICC or Fol: No The following are medically ne: Aviles Catheter Subjective Patient was seen and evaluated in follow up. Patient had aortogram with right lower extremity arteriogram right common iliac artery angioplasty, status post stent placement. As per Dr. Cali patient is scheduled for right above- knee amputation tomorrow. HGB 8.5, HCT 25.8. Telemetry reviewed. vital signs Vital Sign Date Time Temp Pulse Resp B/P (MAP) Pulse Ox O2 Delivery O2 Flow Rate FiO2 02/06/25 20:47 97.6 115 22 116/92 (100) 91 97.6 02/06/25 08:10 Room Air* 0 21 Total Intake and Output 02/05/25 02/05/25 02/06/25 15:00 23:00 07:00 Intake Total 302.5 ml 460 ml 480 ml Output Total 2000 ml 700 ml Balance 302.5 ml -1540 ml -220 ml medications Current Medications Medications Dose Ordered Sig/Omar Route Start Time Stop Time Status Last Admin Dose Admin Ascorbic Acid 500 mg BID PO 01/28/25 22:00 02/06/25 10:19 500 MG Acetaminophen 650 mg Q6HP PRN PO 01/28/25 19:00 Nitroglycerin 0.4 mg Q5MINP PRN SL 01/28/25 19:00 Atorvastatin Calcium 80 mg HS PO 01/28/25 22:00 02/05/25 21:45 80 MG Cilostazol 100 mg BID PO 01/28/25 22:00 02/06/25 10:19 100 MG Minoxidil 5 mg DAILY PO 01/29/25 10:00 02/06/25 10:19 5 MG Nicotine 1 patch DAILY TD 01/29/25 10:00 02/05/25 11:25 1 PATCH Tamsulosin HCl 0.4 mg DAILY PO 01/29/25 10:00 Hold 01/31/25 10:53 0.4 MG Cefepime HCl 50 ml @ 12.5 mls/hr Q12HR IV 01/29/25 22:00 02/06/25 10:17 12.5 MLS/HR Vancomycin HCl 0 ml @ 0 mls/hr UD IV 01/29/25 15:00 Vancomycin HCl 250 ml @ 200 mls/hr Q12H IV 01/29/25 20:00 02/06/25 20:54 200 MLS/HR Haloperidol Lactate 5 mg Q8HP PRN IM 01/29/25 17:00 01/30/25 22:01 5 MG Folic Acid 1 mg/ Dextrose 50.2 ml @ 200.8 mls/ hr DAILY INJ 01/31/25 10:00 UNV Folic Acid 1 mg DAILY PO 01/31/25 10:00 02/06/25 10:19 1 MG Multivitamins/ Minerals 1 tab DAILY PO 02/01/25 10:00 02/06/25 10:18 1 TAB Enteral Nutritional Formula 240 ml TID PO 02/02/25 14:00 02/05/25 14:00 240 ML Thiamine HCl 250 mg DAILY IV 02/03/25 10:00 02/08/25 09:59 UNV Thiamine HCl 250 mg/Dextrose 52.5 ml @ 100 mls/hr DAILY IV 02/03/25 10:00 02/07/25 10:32 02/06/25 10:36 100 MLS/HR Metoprolol Tartrate 12.5 mg BID PO 02/02/25 22:00 02/06/25 10:24 12.5 MG Pantoprazole Sodium 40 mg BID IV 02/02/25 22:00 02/06/25 10:18 40 MG Sucralfate 1 gm QIDACHS PO 02/02/25 22:00 02/06/25 17:20 1 GM Lactulose 30 ml BID PO 02/03/25 10:45 02/06/25 10:19 30 ML Furosemide 20 mg DAILY PO 02/04/25 10:00 02/06/25 10:20 20 MG Spironolactone 25 mg DAILY PO 02/04/25 10:00 02/06/25 10:19 25 MG Acetaminophen/ Hydrocodone Bitart 1 tab Q4HPRN PRN PO 02/06/25 22:45 objective GENERAL: Alert and oriented x 3. No acute distress. EYES: PERRL, EOMI. Anicteric. HENT: Moist mucous membranes. LUNGS: Clear to auscultation bilaterally. CARDIOVASCULAR: Regular rate and rhythm. ABDOMEN: Soft, nontender and nondistended. EXTREMITIES: No edema. NEUROLOGIC: No focal neurological deficits. SKIN: Warm, dry. laboratory and microbiology Laboratory Tests 02/06/25 05:38 Test 02/06/25 05:38 Range/Units Serum Glucose 163 H 74-106 mg/dL Problem List Atrioventricular roslyn reentry tachycardia. Questionable atrial fibrillation. Nonsustained ventricular tachycardia. Peripheral arterial disease status post bilateral lower extremity stents. Rule out structural heart disease. Hypertension. Hyperlipidemia. Severe anemia requiring PRBC transfusion. GI bleed with positive Hemoccult. Hypokalemia. Sepsis. Right foot osteomyelitis. Necrotizing wound to right foot. Assessment/Plan Continued all current supportive medical care. Morphine and [place] for pain management. Lipitor, Metoprolol. IV antibiotics as ordered. Diuretics with Lasix. GI prophylactics. Nitro SL. Additional plan as per the hospital course. Dietary Evaluation Review Recommendations by RD: Increase Calorie Intake, Protein Supplementation Comments: 1) Ensure Enlive 240ml QID (ordered per ONS protocol) 2) Jose A 1 pk BID (ordered per ONS protocol) 3) Continue current POC Expected Outcomes/Goals: wound healing to improve to meet 75% estimated energy & protein needs fu 3-5 days Interpretation of weight loss: >10% in 6 months Fluid Accumulation (Non Severe: Mild fluid retention Protein Calorie Malnutrition: Severe Is there a minimum of two crit: Yes Plan discussed with: Patient CC Plasma Assessment Blood Product Administration S: 15:10 DEWAYNE SAMANO MD Feb 06, 2025 22:51
[2025-02-07] VITALS (8 sets, daily range): BP systolic 111–131; BP diastolic 50–66; PULSE 94–110; RESP 17–20; TEMP 97.7–98.3; O2SAT 92–97
[2025-02-07 06:55] LABS: Basophils # (auto) 0.1 10 ^3/uL (0-0.2); Eosinophils # (auto) 0.1 10 ^3/uL (0-0.8); Eosinophils % (auto) 1.3 % (0.0-7.0); Lymphocytes # (auto) 1.2 10 ^3/uL (0.4-5.4); Mean Corpuscular Hemoglobin 26.5 pg (28.0-32.0); Monocytes # (auto) 0.8 10 ^3/uL (0-1.3)
[2025-02-07 06:58] LABS: Alkaline Phosphatase 84 U/L (46-116); Anion Gap 6 (5-15); BUN/Creatinine Ratio 24.4 (10.0-20.0); Blood Urea Nitrogen 10 mg/dL (9-23); Carbon Dioxide 27 mmol/L (20-31); Chloride 102 mmol/L (98-107); Magnesium 1.6 mg/dL (1.6-2.6); Potassium 4.1 mmol/L (3.5-5.1); Total Protein 5.9 g/dL (5.7-8.2)
[2025-02-07 06:59] LABS: Basophils % (auto) 0.8 % (0.0-2.0); Bilirubin, Total 0.4 mg/dL (0.2-1.0); Hematocrit 24.3 % (41.0-53.0); Hemoglobin 7.8 g/dL (13.5-17.5); Lymphocytes % (auto) 12.8 % (10.0-50.0); Mean Corpuscular Hgb Conc. 32.2 g/dL (32.0-36.0); Mean Corpuscular Volume 82.4 fL (80.0-100.0); Monocytes % (auto) 8.2 % (0.0-12.0); Neutrophils # (auto) 7.2 10 ^3/uL (1.6-8.6); Neutrophils % (auto) 76.9 % (37.0-80.0); Platelet Count (auto) 269 10^3/uL (140-450); Red Blood Cells 2.95 10^6/uL (4.5-5.90); White Blood Cell 9.4 10^3/uL (4.4-10.8)
[2025-02-07 07:04] LABS: INR 1.25 (0.9-1.15); Partial Thromboplastin Time 30.8 SEC (24.5-34.5)
[2025-02-07 07:06] LABS: Alanine Aminotransferase 54 U/L (7-40); Albumin 2.5 g/dL (3.2-4.8); Aspartate Aminotransferase 68 U/L (13-40); Calcium 7.8 mg/dL (8.7-10.4); Glucose 119 mg/dL (74-106); Sodium 135 mmol/L (136-145)
[2025-02-07] MEDS: ACETAMINOPHEN 325 MG TAB PO PRN (08:19)
--- NOTE | 2025-02-07 08:54 | DVH ---
EXAM: XY CHEST XRAY 1 VIEW Indication: Pain Technique: Single frontal view of the chest was obtained Comparison: XY CHEST PORTABLE on DOS: 01/28/25, XY CHEST PORTABLE on DOS: 10/02/24 FINDINGS: Lines and Tubes: None Lungs: Patchy right lung airspace opacities Pleura: No effusion. No pneumothorax. Cardiomediastinal contours: Unremarkable. Atherosclerotic vascular calcifications of the thoracic aor ta are noted. Bones: No acute osseous abnormality. IMPRESSION: Patchy right lung airspace disease which may reflect pulmonary congestion versus atypical infection.
--- NOTE | 2025-02-07 14:23 | DVHPN2 ---
Progress Note Date Seen: Feb 07, 2025 Resident Creating Document: BUD ROY RESIDENT Has the PT tested + for MRSA If YES, has PT been informed?: No Medical Necessity Reason Pt with a Central, PICC or Fol: No The following are medically ne: Aviles Catheter Subjective Review of Systems Patient seen and examined at the bedside. Patient reported improvement in his abdominal symptoms, reported no new complaints. Today patient is NPO, likely going for a 2nd procedure for revascularization. Objective vital signs Vital Sign Date Time Temp Pulse Resp B/P (MAP) Pulse Ox O2 Delivery O2 Flow Rate FiO2 02/07/25 12:55 94 19 112/50 (70) 02/07/25 09:00 98.0 97 98.0 02/07/25 08:10 Nasal Cannula* 2 28 Total Intake and Output 02/06/25 02/06/25 02/07/25 14:59 22:59 06:59 Intake Total 602.5 ml 480 ml Output Total 800 ml 700 ml Balance -197.5 ml -220 ml medications Current Medications Medications Dose Ordered Sig/Omar Route Start Time Stop Time Status Last Admin Dose Admin Ascorbic Acid 500 mg BID PO 01/28/25 22:00 02/07/25 10:03 500 MG Acetaminophen 650 mg Q6HP PRN PO 01/28/25 19:00 02/07/25 08:19 650 MG Nitroglycerin 0.4 mg Q5MINP PRN SL 01/28/25 19:00 Atorvastatin Calcium 80 mg HS PO 01/28/25 22:00 02/06/25 22:48 80 MG Cilostazol 100 mg BID PO 01/28/25 22:00 02/06/25 22:48 100 MG Minoxidil 5 mg DAILY PO 01/29/25 10:00 02/07/25 10:07 5 MG Nicotine 1 patch DAILY TD 01/29/25 10:00 02/07/25 10:02 1 PATCH Tamsulosin HCl 0.4 mg DAILY PO 01/29/25 10:00 Hold 01/31/25 10:53 0.4 MG Cefepime HCl 50 ml @ 12.5 mls/hr Q12HR IV 01/29/25 22:00 02/07/25 09:59 12.5 MLS/HR Vancomycin HCl 0 ml @ 0 mls/hr UD IV 01/29/25 15:00 Vancomycin HCl 250 ml @ 200 mls/hr Q12H IV 01/29/25 20:00 02/07/25 08:06 200 MLS/HR Haloperidol Lactate 5 mg Q8HP PRN IM 01/29/25 17:00 01/30/25 22:01 5 MG Folic Acid 1 mg/ Dextrose 50.2 ml @ 200.8 mls/ hr DAILY INJ 01/31/25 10:00 UNV Folic Acid 1 mg DAILY PO 01/31/25 10:00 02/07/25 10:04 1 MG Multivitamins/ Minerals 1 tab DAILY PO 02/01/25 10:00 02/07/25 10:03 1 TAB Enteral Nutritional Formula 240 ml TID PO 02/02/25 14:00 02/05/25 14:00 240 ML Thiamine HCl 250 mg DAILY IV 02/03/25 10:00 02/08/25 09:59 UNV Metoprolol Tartrate 12.5 mg BID PO 02/02/25 22:00 02/07/25 10:06 12.5 MG Pantoprazole Sodium 40 mg BID IV 02/02/25 22:00 02/07/25 09:56 40 MG Sucralfate 1 gm QIDACHS PO 02/02/25 22:00 02/06/25 22:48 1 GM Lactulose 30 ml BID PO 02/03/25 10:45 02/06/25 22:46 30 ML Furosemide 20 mg DAILY PO 02/04/25 10:00 02/07/25 10:04 20 MG Spironolactone 25 mg DAILY PO 02/04/25 10:00 02/07/25 10:05 25 MG Acetaminophen/ Hydrocodone Bitart 1 tab Q4HPRN PRN PO 02/06/25 22:45 02/07/25 10:08 1 TAB Examination General examination- patient is awake , alert HEENT- PEERLA, no acute nasal discharge Cardiovascular- S1-S2 audible, rate and rhythm regular, no murmur Respiratory- CTAB, no wheeze or rhonchi Gastrointestinal-nontender, bowel sound+. Nondistended Musculoskeletal-no acute joint swelling or tenderness or redness Lower extremity- right foot ulcer with a black eschar on the medial and inferior surface of the foot, with redness and skin excoriation of the rest of the foot Neurological- cranial nerves intact, no acute dysarthria or dysphagia Psychiatry- denies depression or SI or HI Skin- right foot ulcer with a black eschar on the medial and inferior surface of the foot, with redness and skin excoriation of the rest of the foot laboratory and microbiology Laboratory Tests 02/07/25 05:51 Test 02/07/25 05:51 Range/Units Serum Glucose 119 H 74-106 mg/dL Microbiology Date/Time Source Procedure Growth Status 02/03/25 08:40 Blood Blood Culture - Preliminary NO GROWTH AFTER 72 HOURS OF INCUBATION. Resulted 01/30/25 18:49 Foot Right Gram Stain - Final Complete 01/30/25 18:49 Wound Culture - Final Pseudomonas aeruginosa Stenotrophomonas maltophilia Enterococcus faecalis Methicillin Resistant S.aureus Complete 01/30/25 11:20 Voided Urine Urine Culture - Final Complete Labs and/or images reviewed: Labs reviewed by me, Image(s) reviewed by me Problem List/Assessment/Plan Problem List/Assessment/Plan Hiatal hernia Gradient erosive esophagitis Mild gastroduodenitis Severe anemia, S/P BT - pRBC Likely GI bleeding. FOBT Positive Peripheral artery disease AFib Metabolic encephalopathy Sepsis likely due to right foot cellulitis Necrotizing soft tissue infection of the right foot Plan: -Protonix 40 mg IV b.i.d. -Carafate 1 g p.o. twice a day -Resume GI soft diet and advanced as tolerated -Patient underwent foot surgery today -Outpatient follow up with the GI for elective colonoscopy once patient is recovered from his current illness Thank you so much for the opportunity to consult on your patient. GI team will follow the patient Case an action plan discussed with Dr. Aiyana Saldana. Complex care planning needed total 49 minutes of detailed discussion. Plan discussed with: Patient Dietary Evaluation Review Recommendations by RD: Increase Calorie Intake, Protein Supplementation Comments: 1) Ensure Enlive 240ml QID (ordered per ONS protocol) 2) Jose A 1 pk BID (ordered per ONS protocol) 3) Continue current POC Expected Outcomes/Goals: wound healing to improve to meet 75% estimated energy & protein needs fu 3-5 days Interpretation of weight loss: >10% in 6 months Fluid Accumulation (Non Severe: Mild fluid retention Protein Calorie Malnutrition: Severe Is there a minimum of two crit: Yes CC Plasma Assessment Blood Product Administration S: 15:10 BUD ROY RESIDENT Feb 07, 2025 14:23
--- NOTE | 2025-02-07 17:06 | DVHPNRES ---
Progress Note Date Seen: Feb 07, 2025 Resident Creating Document: BILLY MORENO RESIDENT Has the PT tested + for MRSA If YES, has PT been informed?: No Medical Necessity Reason Pt with a Central, PICC or Fol: No The following are medically ne: Aviles Catheter Subjective Review of Systems This is a 64-year-old cachectic male with PMH of HTN, PAD, BPH, vasculopathy, Cxpu-bz-hhqrogkt stenosis of the juxtarenal abdominal aorta. Hzra-dk-rfuqjjkv stenosis of the superior mesenteric. 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 Wytz-ta-pblaexuq stenosis of the left renal artery. 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 and recent bilateral lower extremity stent placement presents to ED with chief complaint of generalized weakness since he left rehab center three days ago. He had his blood drawn at the rehab center for which has showed hemoglobin of 5.9. The patient was instructed to go to the nearest ER for blood transfusion. He denied bloody stool and hematemesis. He denies taking anticoagulant. The patient reports heavy alcohol abuse quit four months ago. The patient hemoglobin found to be 5.4 with lactic acid 4.3. UDS negative, serum alcohol< 3.0. . Upon evaluating patient in ER bed 12, notable foul odor noted to his right foot with dressing in place. The dressing was saturated removed and multiple open sores with pus were present. The patient states that his right leg wound has been dressed two days ago and currently under treatment without being prescribed any antibiotics. The patient is currently receiving packed red blood cell transfusion. The patient is concerned about his symptoms and would like to be further evaluated and treated. The patient will be admitted under hospitalist care to the telemetry unit for continuous monitoring. The patient denies fever, chills, headache, dizziness, palpitation, chest pain, nausea, vomiting, abdominal pain, diarrhea, constipation and other associated symptoms. The plan has been discussed with the patient in which all questions concerns have been addressed. Initial lab workup revealed leukocytosis with WBC 17.4, severe anemia with a hemoglobin 5.4. UDS negative, serum alcohol< 3.0. CXR-No pulmonary airspace consolidation. Ultrasound of the abdomen revealed- Atrophic right kidney. Distended bladder with debris. Gallbladder sludge.Bladder volume measures 1848 cc. Doppler study of the lower extremity negative for DVT. Arterial Doppler of the lower extremity revealed no flow seen in the right distal superficial femoral artery, right anterior tibial and dorsalis pedis artery. CT abdomen and pelvis revealed moderate ascites, cirrhotic liver. Colonic diverticulosis, small bilateral pleural effusion with overlying compressive atelectasis. CT head negative for acute intracranial abnormality. CT abdomen and pelvis revealed moderate ascites, cirrhotic liver. Colonic diverticulosis, small bilateral pleural effusion with overlying compressive atelectasis. CT angio with run off revealed- Advanced atherosclerotic disease. Kcor-tx-oqnllrhf stenosis of the infrarenal abdominal aorta partially imaged. High-grade stenosis or focal occlusion of the proximal right common iliac artery. Occluded right superficial femoral and popliteal arteries. 2-vessel runoff to the right foot via the anterior tibial and peroneal arteries. Moderate high-grade stenosis of the left common iliac artery. Occluded distal left superficial femoral artery and popliteal arteries. Ascites. PMH-HTN, PAD, BPH, Bylr-vw-megtkfyy stenosis of the juxtarenal abdominal aorta. Kzls-rj-uaxbhzif stenosis of the superior mesenteric. 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 Ybtp-ph-sqsxszid stenosis of the left renal artery. High- grade stenosis or occlusion of the proximal right common iliac artery. PSH- status post bilateral lower extremity stent Allergy- Personal History/ Social History- history of alcoholism but exacerbation patient did not drink alcohol last couple of months when he was in rehab. Patient was seen today at the bedside. Patient Cardiovascular- deny acute chest pain or shortness of breath or cough or palpitation Respiratory denies cough or short of breath or wheezing Gastrointestinal- denies any rectal bleeding, nausea or vomiting Musculoskeletal-denies acute joint swelling or tenderness or redness Neurological- denies acute dysarthria, dysphagia, change in vision Psychiatry- denies depression or SI or HI Skin- denies acute rash or purpura Patient was seen today for clinical evaluation. Labs and chart reviewed. Patient has right above-knee amputation was postponed it today, scheduled for tomorrow. Hemoglobin today 7.8. Provider spoke to patient's daughter, ,, discussed patient's current medical condition, plan of care and answered her question. Objective vital signs Vital Sign Date Time Temp Pulse Resp B/P (MAP) Pulse Ox O2 Delivery O2 Flow Rate FiO2 02/07/25 12:55 94 19 112/50 (70) 02/07/25 09:00 98.0 97 98.0 02/07/25 08:10 Nasal Cannula* 2 28 Total Intake and Output 02/06/25 02/06/25 02/07/25 15:00 23:00 07:00 Intake Total 602.5 ml 480 ml Output Total 800 ml 700 ml Balance -197.5 ml -220 ml medications Current Medications Medications Dose Ordered Sig/Omar Route Start Time Stop Time Status Last Admin Dose Admin Ascorbic Acid 500 mg BID PO 01/28/25 22:00 02/07/25 10:03 500 MG Acetaminophen 650 mg Q6HP PRN PO 01/28/25 19:00 02/07/25 08:19 650 MG Nitroglycerin 0.4 mg Q5MINP PRN SL 01/28/25 19:00 Atorvastatin Calcium 80 mg HS PO 01/28/25 22:00 02/06/25 22:48 80 MG Cilostazol 100 mg BID PO 01/28/25 22:00 02/06/25 22:48 100 MG Minoxidil 5 mg DAILY PO 01/29/25 10:00 02/07/25 10:07 5 MG Nicotine 1 patch DAILY TD 01/29/25 10:00 02/07/25 10:02 1 PATCH Tamsulosin HCl 0.4 mg DAILY PO 01/29/25 10:00 Hold 01/31/25 10:53 0.4 MG Cefepime HCl 50 ml @ 12.5 mls/hr Q12HR IV 01/29/25 22:00 02/07/25 09:59 12.5 MLS/HR Vancomycin HCl 0 ml @ 0 mls/hr UD IV 01/29/25 15:00 Vancomycin HCl 250 ml @ 200 mls/hr Q12H IV 01/29/25 20:00 02/07/25 08:06 200 MLS/HR Haloperidol Lactate 5 mg Q8HP PRN IM 01/29/25 17:00 01/30/25 22:01 5 MG Folic Acid 1 mg/ Dextrose 50.2 ml @ 200.8 mls/ hr DAILY INJ 01/31/25 10:00 UNV Folic Acid 1 mg DAILY PO 01/31/25 10:00 02/07/25 10:04 1 MG Multivitamins/ Minerals 1 tab DAILY PO 02/01/25 10:00 02/07/25 10:03 1 TAB Enteral Nutritional Formula 240 ml TID PO 02/02/25 14:00 02/05/25 14:00 240 ML Thiamine HCl 250 mg DAILY IV 02/03/25 10:00 02/08/25 09:59 UNV Metoprolol Tartrate 12.5 mg BID PO 02/02/25 22:00 02/07/25 10:06 12.5 MG Pantoprazole Sodium 40 mg BID IV 02/02/25 22:00 02/07/25 09:56 40 MG Sucralfate 1 gm QIDACHS PO 02/02/25 22:00 02/06/25 22:48 1 GM Lactulose 30 ml BID PO 02/03/25 10:45 02/06/25 22:46 30 ML Furosemide 20 mg DAILY PO 02/04/25 10:00 02/07/25 10:04 20 MG Spironolactone 25 mg DAILY PO 02/04/25 10:00 02/07/25 10:05 25 MG Acetaminophen/ Hydrocodone Bitart 1 tab Q4HPRN PRN PO 02/06/25 22:45 02/07/25 16:23 1 TAB Examination General examination- patient is awake , alert HEENT- PEERLA, no acute nasal discharge Cardiovascular- S1-S2 audible, rate and rhythm regular, no murmur Respiratory- CTAB, no wheeze or rhonchi Gastrointestinal-nontender, bowel sound+. Nondistended Musculoskeletal-no acute joint swelling or tenderness or redness Lower extremity- right foot ulcer with a black eschar on the medial and inferior surface of the foot, with redness and skin excoriation of the rest of the foot Neurological- cranial nerves intact, no acute dysarthria or dysphagia Psychiatry- denies depression or SI or HI Skin- right foot ulcer with a black eschar on the medial and inferior surface of the foot, with redness and skin excoriation of the rest of the foot laboratory and microbiology Laboratory Tests 02/07/25 05:51 Test 02/07/25 05:51 Range/Units Serum Glucose 119 H 74-106 mg/dL Microbiology Date/Time Source Procedure Growth Status 02/03/25 08:40 Blood Blood Culture - Preliminary NO GROWTH AFTER 72 HOURS OF INCUBATION. Resulted 01/30/25 18:49 Foot Right Gram Stain - Final Complete 01/30/25 18:49 Wound Culture - Final Pseudomonas aeruginosa Stenotrophomonas maltophilia Enterococcus faecalis Methicillin Resistant S.aureus Complete 01/30/25 11:20 Voided Urine Urine Culture - Final Complete Problem List/Assessment/Plan Problem List/Assessment/Plan Assessment and plan--Patient had Aortogram with right lower extremity arteriogram right common iliac artery angioplasty, status post stent placement. As per Dr. Cali patient is scheduled for right above-knee amputation tomorrow. Patient was also seen by biological science aide day before yesterday, recommendation reviewed and appreciated. Gastroenterology recommended for outpatient colonoscopy once patient was recommended from his current illness. Sepsis likely due to right foot cellulitis right foot ulcer with a black eschar on the medial and inferior surface of the foot, with redness and skin excoriation of the rest of the foot\ Right foot cellulitis with a blackish care Necrotizing soft tissue infection of the right foot Right foot abscess Right foot wet gangrene Right foot osteomyelitis Severe anemia, S/P BT - pRBC Likely GI bleeding. FOBT Positive Acute retention of urine likely due to BPH Metabolic encephalopathy/toxic encephalopathy Suspected Wernicke's encephalopathy Peripheral arterial disease A-Fib/AV roslyn reentry tachycardia/paroxysmal SVT Severe vasculopathy BPH Constipation Hyperlipidemia Hypertension Ruled out UTI CT angio with run off revealed- Advanced atherosclerotic disease. Plqy-jk-wfpfldfa stenosis of the infrarenal abdominal aorta partially imaged. High-grade stenosis or focal occlusion of the proximal right common iliac artery. Occluded right superficial femoral and popliteal arteries. 2-vessel runoff to the right foot via the anterior tibial and peroneal arteries. Moderate high-grade stenosis of the left common iliac artery. Occluded distal left superficial femoral artery and popliteal arteries. Ascites. Patient had Aortogram with right lower extremity arteriogram right common iliac artery angioplasty, status post stent placement. On 02/05/2025- GI- endoscopy, had a 1-2 cm sliding-type hiatal hernia with grade A erosive esophagitis with mild gastroduodenitis with superficial pre- pyloric and duodenal erosions. Plan Blood culture negative Wound culture revealed E coli, MRSA, Pseudomonas aeruginosa, Providencia stuartii. CT abdomen and pelvis revealed moderate ascites, cirrhotic liver. Colonic diverticulosis, small bilateral pleural effusion with overlying compressive atelectasis On 02/02/2025-x-ray of [facility]-nonobstructive gas pattern 02/03/2024 CT angio with run off revealed- Advanced atherosclerotic disease. Himr-cd-utlfbjqe stenosis of the infrarenal abdominal aorta partially imaged. High-grade stenosis or focal occlusion of the proximal right common iliac artery. Occluded right superficial femoral and popliteal arteries. 2-vessel runoff to the right foot via the anterior tibial and peroneal arteries. Moderate high-grade stenosis of the left common iliac artery. Occluded distal left superficial femoral artery and popliteal arteries. Ascites. Continue cefepime and vancomycin as prescribed Continue pain medication as prescribed Pantoprazole as prescribed Tamsulosin 0.4 mg p.o. daily Cilostazol 100 mg p.o. b.i.d. Atorvastatin 80 mg p.o. HS Aspirin 81 mg p.o. daily Metoprolol tartrate 12.5 mg p.o. b.i.d. Continue thiamine as prescribed Continue folic acid as prescribed spironolactone 25 mg q.d., Lasix 20 mg p.o. daily. As per Dr. Cali patient is scheduled for right above-knee amputation tomorrow. Goals of care, Code status ; discussed with >15 minutes PUD prophylaxis: Pantoprazole DVT prophylaxis: SCD Plan discussed with Dr. Cotton , nursing staff, Total time spent on patient evaluation, chart review, assessment and plan, discussion discussion >35 minutes Plan discussed with: Patient, Daughter, Other (RN) My Orders My Orders Orders - BILLY MORENO RESIDENT Procedure Category Date Status Time Npo After Midnight ORDERS 02/06/25 Transmitted Npo After Midnight ORDERS 02/06/25 Transmitted Chest Xray 1 View XY 02/07/25 Resulted 05:59 * Hematology/Oncology CONS 02/07/25 Transmitted Consult 11:10 Complete Blood Count LAB 02/08/25 Verified 04:00 Creatinine LAB 02/08/25 Verified 04:00 Dietary Evaluation Review Recommendations by RD: Increase Calorie Intake, Protein Supplementation Comments: 1) Ensure Enlive 240ml QID (ordered per ONS protocol) 2) Jose A 1 pk BID (ordered per ONS protocol) 3) Continue current POC Expected Outcomes/Goals: wound healing to improve to meet 75% estimated energy & protein needs fu 3-5 days Interpretation of weight loss: >10% in 6 months Fluid Accumulation (Non Severe: Mild fluid retention Protein Calorie Malnutrition: Severe Is there a minimum of two crit: Yes CC Plasma Assessment Blood Product Administration S: 15:10 Date of Service: Feb 07, 2025 Billing Provider: DOLORES KAT MD Common Visit Codes: [id number] INP/OBS CARE(HIGH) BILLY MORENO RESIDENT Feb 07, 2025 17:06 DOLORES KAT MD February 11, 2025 21:03
--- NOTE | 2025-02-07 23:01 | DVHPN2 ---
Progress Note - Dictate Date Seen: Feb 07, 2025 Has the PT tested + for MRSA If YES, has PT been informed?: No Medical Necessity Reason Pt with a Central, PICC or Fol: No The following are medically ne: Aviles Catheter Subjective Patient was seen and evaluated in follow up. Patient is on 2 LPM NC. Patient reports improvement in abdominal pain. Patient is rescheduled for right above- knee amputation tomorrow. HGB 7.8, HCT 24.3. Telemetry reviewed. vital signs Vital Sign Date Time Temp Pulse Resp B/P (MAP) Pulse Ox O2 Delivery O2 Flow Rate FiO2 02/07/25 21:17 105 117/51 02/07/25 21:00 98.3 18 95 98.3 02/07/25 08:10 Nasal Cannula* 2 28 Total Intake and Output 02/06/25 02/06/25 02/07/25 15:00 23:00 07:00 Intake Total 602.5 ml 480 ml Output Total 800 ml 700 ml Balance -197.5 ml -220 ml medications Current Medications Medications Dose Ordered Sig/Omar Route Start Time Stop Time Status Last Admin Dose Admin Ascorbic Acid 500 mg BID PO 01/28/25 22:00 02/07/25 21:16 500 MG Acetaminophen 650 mg Q6HP PRN PO 01/28/25 19:00 02/07/25 08:19 650 MG Nitroglycerin 0.4 mg Q5MINP PRN SL 01/28/25 19:00 Atorvastatin Calcium 80 mg HS PO 01/28/25 22:00 02/07/25 21:16 80 MG Cilostazol 100 mg BID PO 01/28/25 22:00 02/07/25 21:16 100 MG Minoxidil 5 mg DAILY PO 01/29/25 10:00 02/07/25 10:07 5 MG Nicotine 1 patch DAILY TD 01/29/25 10:00 02/07/25 10:02 1 PATCH Tamsulosin HCl 0.4 mg DAILY PO 01/29/25 10:00 Hold 01/31/25 10:53 0.4 MG Cefepime HCl 50 ml @ 12.5 mls/hr Q12HR IV 01/29/25 22:00 02/07/25 21:15 12.5 MLS/HR Vancomycin HCl 0 ml @ 0 mls/hr UD IV 01/29/25 15:00 Vancomycin HCl 250 ml @ 200 mls/hr Q12H IV 01/29/25 20:00 02/07/25 19:42 200 MLS/HR Haloperidol Lactate 5 mg Q8HP PRN IM 01/29/25 17:00 01/30/25 22:01 5 MG Folic Acid 1 mg/ Dextrose 50.2 ml @ 200.8 mls/ hr DAILY INJ 01/31/25 10:00 UNV Folic Acid 1 mg DAILY PO 01/31/25 10:00 02/07/25 10:04 1 MG Multivitamins/ Minerals 1 tab DAILY PO 02/01/25 10:00 02/07/25 10:03 1 TAB Enteral Nutritional Formula 240 ml TID PO 02/02/25 14:00 02/07/25 21:32 240 ML Thiamine HCl 250 mg DAILY IV 02/03/25 10:00 02/08/25 09:59 UNV Metoprolol Tartrate 12.5 mg BID PO 02/02/25 22:00 02/07/25 21:17 12.5 MG Pantoprazole Sodium 40 mg BID IV 02/02/25 22:00 02/07/25 21:15 40 MG Sucralfate 1 gm QIDACHS PO 02/02/25 22:00 02/07/25 21:16 1 GM Lactulose 30 ml BID PO 02/03/25 10:45 02/06/25 22:46 30 ML Furosemide 20 mg DAILY PO 02/04/25 10:00 02/07/25 10:04 20 MG Spironolactone 25 mg DAILY PO 02/04/25 10:00 02/07/25 10:05 25 MG Acetaminophen/ Hydrocodone Bitart 1 tab Q4HPRN PRN PO 02/06/25 22:45 02/07/25 21:17 1 TAB objective GENERAL: Alert and oriented x 3. No acute distress. EYES: PERRL, EOMI. Anicteric. HENT: Moist mucous membranes. LUNGS: Clear to auscultation bilaterally. CARDIOVASCULAR: Regular rate and rhythm. ABDOMEN: Soft, nontender and nondistended. EXTREMITIES: No edema. NEUROLOGIC: No focal neurological deficits. SKIN: Warm, dry. laboratory and microbiology Laboratory Tests 02/07/25 05:51 Test 02/07/25 05:51 Range/Units Serum Glucose 119 H 74-106 mg/dL Problem List Atrioventricular roslyn reentry tachycardia. Questionable atrial fibrillation. Nonsustained ventricular tachycardia. Peripheral arterial disease status post bilateral lower extremity stents. Rule out structural heart disease. Hypertension. Hyperlipidemia. Severe anemia requiring PRBC transfusion. GI bleed with positive Hemoccult. Hypokalemia. Sepsis. Right foot osteomyelitis. Necrotizing wound to right foot. Assessment/Plan Continued all current supportive medical care. Morphine and Doyline for pain management. Lipitor, Metoprolol. IV antibiotics as ordered. Diuretics with Lasix. GI prophylactics. Nitro SL. Additional plan as per the hospital course. Dietary Evaluation Review Recommendations by RD: Increase Calorie Intake, Protein Supplementation Comments: 1) Ensure Enlive 240ml QID (ordered per ONS protocol) 2) Jose A 1 pk BID (ordered per ONS protocol) 3) Continue current POC Expected Outcomes/Goals: wound healing to improve to meet 75% estimated energy & protein needs fu 3-5 days Interpretation of weight loss: >10% in 6 months Fluid Accumulation (Non Severe: Mild fluid retention Protein Calorie Malnutrition: Severe Is there a minimum of two crit: Yes Plan discussed with: Patient CC Plasma Assessment Blood Product Administration S: 15:10 DEWAYNE SAMANO MD Feb 07, 2025 23:01
[2025-02-07] MEDS: MELATONIN 5 MG TAB PO ONE (23:24)
[2025-02-08] VITALS (8 sets, daily range): BP systolic 106–125; BP diastolic 44–69; PULSE 74–120; RESP 18–20; TEMP 98.1–99.4; O2SAT 90–100
[2025-02-08 06:07] LABS: Basophils # (auto) 0.1 10 ^3/uL (0-0.2); Eosinophils # (auto) 0.1 10 ^3/uL (0-0.8); Hemoglobin 8.1 g/dL (13.5-17.5); Lymphocytes # (auto) 1.3 10 ^3/uL (0.4-5.4); Monocytes # (auto) 0.7 10 ^3/uL (0-1.3)
[2025-02-08 06:10] LABS: Basophils % (auto) 0.9 % (0.0-2.0); Eosinophils % (auto) 1.8 % (0.0-7.0); Hematocrit 24.7 % (41.0-53.0); Lymphocytes % (auto) 15.6 % (10.0-50.0); Mean Corpuscular Hgb Conc. 32.7 g/dL (32.0-36.0); Mean Corpuscular Volume 82.6 fL (80.0-100.0); Monocytes % (auto) 8.5 % (0.0-12.0); Neutrophils % (auto) 73.2 % (37.0-80.0); Platelet Count (auto) 267 10^3/uL (140-450); Red Blood Cells 2.99 10^6/uL (4.5-5.90); Red Cell Distribution Width 19.4 % (11.8-14.3); White Blood Cell 8.2 10^3/uL (4.4-10.8)
[2025-02-08 06:28] LABS: Alkaline Phosphatase 92 U/L (46-116); Anion Gap 5 (5-15); BUN/Creatinine Ratio 35.7 (10.0-20.0); Blood Urea Nitrogen 15 mg/dL (9-23); Carbon Dioxide 27 mmol/L (20-31); Chloride 103 mmol/L (98-107); Magnesium 1.7 mg/dL (1.6-2.6)
[2025-02-08 06:29] LABS: Bilirubin, Total 0.3 mg/dL (0.2-1.0)
[2025-02-08 06:33] LABS: Glucose 116 mg/dL (74-106); Sodium 135 mmol/L (136-145)
[2025-02-08 06:34] LABS: Alanine Aminotransferase 46 U/L (7-40); Albumin 2.6 g/dL (3.2-4.8); Aspartate Aminotransferase 48 U/L (13-40); Calcium 7.9 mg/dL (8.7-10.4)
--- NOTE | 2025-02-08 09:57 | DVHPN2 ---
Progress Note Date Seen: Feb 08, 2025 Resident Creating Document: BUD ROY RESIDENT Has the PT tested + for MRSA If YES, has PT been informed?: No Medical Necessity Reason Pt with a Central, PICC or Fol: No The following are medically ne: Aviles Catheter Subjective Review of Systems Patient seen and examined at the bedside. Patient reported no active GI complaints. Yesterday patient underwent revascularization surgery. Advanced diet as tolerated. Objective vital signs Vital Sign Date Time Temp Pulse Resp B/P (MAP) Pulse Ox O2 Delivery O2 Flow Rate FiO2 02/08/25 08:12 Nasal Cannula* 2 28 02/08/25 05:00 98.1 98 18 111/58 (75) 95 98.1 Total Intake and Output 02/07/25 02/07/25 02/08/25 15:00 23:00 07:00 Intake Total 352.5 ml 700 ml 850 ml Output Total 1400 ml 800 ml Balance 352.5 ml -700 ml 50 ml medications Current Medications Medications Dose Ordered Sig/Omar Route Start Time Stop Time Status Last Admin Dose Admin Ascorbic Acid 500 mg BID PO 01/28/25 22:00 02/07/25 21:16 500 MG Acetaminophen 650 mg Q6HP PRN PO 01/28/25 19:00 02/08/25 07:57 650 MG Nitroglycerin 0.4 mg Q5MINP PRN SL 01/28/25 19:00 Atorvastatin Calcium 80 mg HS PO 01/28/25 22:00 02/07/25 21:16 80 MG Cilostazol 100 mg BID PO 01/28/25 22:00 02/07/25 21:16 100 MG Minoxidil 5 mg DAILY PO 01/29/25 10:00 02/07/25 10:07 5 MG Nicotine 1 patch DAILY TD 01/29/25 10:00 02/07/25 10:02 1 PATCH Tamsulosin HCl 0.4 mg DAILY PO 01/29/25 10:00 Hold 01/31/25 10:53 0.4 MG Cefepime HCl 50 ml @ 12.5 mls/hr Q12HR IV 01/29/25 22:00 02/07/25 21:15 12.5 MLS/HR Vancomycin HCl 0 ml @ 0 mls/hr UD IV 01/29/25 15:00 Vancomycin HCl 250 ml @ 200 mls/hr Q12H IV 01/29/25 20:00 02/08/25 07:56 200 MLS/HR Haloperidol Lactate 5 mg Q8HP PRN IM 01/29/25 17:00 01/30/25 22:01 5 MG Folic Acid 1 mg/ Dextrose 50.2 ml @ 200.8 mls/ hr DAILY INJ 01/31/25 10:00 UNV Folic Acid 1 mg DAILY PO 01/31/25 10:00 02/07/25 10:04 1 MG Multivitamins/ Minerals 1 tab DAILY PO 02/01/25 10:00 02/07/25 10:03 1 TAB Enteral Nutritional Formula 240 ml TID PO 02/02/25 14:00 02/07/25 21:32 240 ML Thiamine HCl 250 mg DAILY IV 02/03/25 10:00 02/08/25 09:59 UNV Metoprolol Tartrate 12.5 mg BID PO 02/02/25 22:00 02/07/25 21:17 12.5 MG Pantoprazole Sodium 40 mg BID IV 02/02/25 22:00 02/07/25 21:15 40 MG Sucralfate 1 gm QIDACHS PO 02/02/25 22:00 02/07/25 21:16 1 GM Lactulose 30 ml BID PO 02/03/25 10:45 02/06/25 22:46 30 ML Furosemide 20 mg DAILY PO 02/04/25 10:00 02/07/25 10:04 20 MG Spironolactone 25 mg DAILY PO 02/04/25 10:00 02/07/25 10:05 25 MG Acetaminophen/ Hydrocodone Bitart 1 tab Q4HPRN PRN PO 02/06/25 22:45 02/08/25 04:38 1 TAB Examination General examination- patient is awake , alert HEENT- PEERLA, no acute nasal discharge Cardiovascular- S1-S2 audible, rate and rhythm regular, no murmur Respiratory- CTAB, no wheeze or rhonchi Gastrointestinal-nontender, bowel sound+. Nondistended Musculoskeletal-no acute joint swelling or tenderness or redness Lower extremity- right foot ulcer with a black eschar on the medial and inferior surface of the foot, with redness Neurological- cranial nerves intact, no acute dysarthria or dysphagia Psychiatry- denies depression or SI or HI Skin- right foot ulcer with a black eschar on the medial and inferior surface of the foot, with redness laboratory and microbiology Laboratory Tests 02/08/25 05:24 Test 02/08/25 05:24 Range/Units Serum Glucose 116 H 74-106 mg/dL Microbiology Date/Time Source Procedure Growth Status 02/03/25 08:40 Blood Blood Culture - Final NO GROWTH AFTER 5 DAYS OF INCUBATION. Complete 01/30/25 18:49 Foot Right Gram Stain - Final Complete 01/30/25 18:49 Wound Culture - Final Pseudomonas aeruginosa Stenotrophomonas maltophilia Enterococcus faecalis Methicillin Resistant S.aureus Complete 01/30/25 11:20 Voided Urine Urine Culture - Final Complete Labs and/or images reviewed: Labs reviewed by me, Image(s) reviewed by me Problem List/Assessment/Plan Problem List/Assessment/Plan Hiatal hernia Gradient erosive esophagitis Mild gastroduodenitis Severe anemia, S/P BT - pRBC Likely GI bleeding. FOBT Positive Peripheral artery disease AFib Metabolic encephalopathy Sepsis likely due to right foot cellulitis Necrotizing soft tissue infection of the right foot Plan: -Protonix 40 mg IV b.i.d. -Carafate 1 g p.o. twice a day -Resume GI soft diet and advanced as tolerated -Patient underwent foot surgery s/p Aortogram with right lower extremity arteriogram right common iliac artery angioplasty -Outpatient follow up with the GI for elective colonoscopy once patient is recovered from his current illness Thank you so much for the opportunity to consult on your patient. GI team will follow the patient Case an action plan discussed with Dr. Aiynaa Saldana. Complex care planning needed total 49 minutes of detailed discussion. Plan discussed with: Patient Dietary Evaluation Review Recommendations by RD: Increase Calorie Intake, Protein Supplementation Comments: 1) Ensure Enlive 240ml QID (ordered per ONS protocol) 2) Jose A 1 pk BID (ordered per ONS protocol) 3) Continue current POC Expected Outcomes/Goals: wound healing to improve to meet 75% estimated energy & protein needs fu 3-5 days Interpretation of weight loss: >10% in 6 months Fluid Accumulation (Non Severe: Mild fluid retention Protein Calorie Malnutrition: Severe Is there a minimum of two crit: Yes CC Plasma Assessment Blood Product Administration S: 15:10 BUD ROY RESIDENT Feb 08, 2025 09:57
[2025-02-08] MEDS ORDERED: fentaNYL CITRATE 100 MCG/2 ML VL ONE (13:12)
[2025-02-08] MEDS ORDERED: MIDAZOLAM HCL 2MG/2ML 2ml VIAL (1mg/ml) ONE (13:13)
[2025-02-08] MEDS ORDERED: PROPOFOL 10 MG/ML 20 ML IV ONE (13:49)
--- NOTE | 2025-02-08 14:57 | DVHPNRES ---
Progress Note Date Seen: Feb 08, 2025 Resident Creating Document: BILLY MORENO RESIDENT Has the PT tested + for MRSA If YES, has PT been informed?: No Medical Necessity Reason Pt with a Central, PICC or Fol: No The following are medically ne: Aviles Catheter Subjective Review of Systems This is a 64-year-old cachectic male with PMH of HTN, PAD, BPH, vasculopathy, Hcrk-mc-ooypcxnb stenosis of the juxtarenal abdominal aorta. Qkpi-jn-llwvkclc stenosis of the superior mesenteric. 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 Bezn-yc-ordhggdz stenosis of the left renal artery. 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 and recent bilateral lower extremity stent placement presents to ED with chief complaint of generalized weakness since he left rehab center three days ago. He had his blood drawn at the rehab center for which has showed hemoglobin of 5.9. The patient was instructed to go to the nearest ER for blood transfusion. He denied bloody stool and hematemesis. He denies taking anticoagulant. The patient reports heavy alcohol abuse quit four months ago. The patient hemoglobin found to be 5.4 with lactic acid 4.3. UDS negative, serum alcohol< 3.0. . Upon evaluating patient in ER bed 12, notable foul odor noted to his right foot with dressing in place. The dressing was saturated removed and multiple open sores with pus were present. The patient states that his right leg wound has been dressed two days ago and currently under treatment without being prescribed any antibiotics. The patient is currently receiving packed red blood cell transfusion. The patient is concerned about his symptoms and would like to be further evaluated and treated. The patient will be admitted under hospitalist care to the telemetry unit for continuous monitoring. The patient denies fever, chills, headache, dizziness, palpitation, chest pain, nausea, vomiting, abdominal pain, diarrhea, constipation and other associated symptoms. The plan has been discussed with the patient in which all questions concerns have been addressed. Initial lab workup revealed leukocytosis with WBC 17.4, severe anemia with a hemoglobin 5.4. UDS negative, serum alcohol< 3.0. CXR-No pulmonary airspace consolidation. Ultrasound of the abdomen revealed- Atrophic right kidney. Distended bladder with debris. Gallbladder sludge.Bladder volume measures 1848 cc. Doppler study of the lower extremity negative for DVT. Arterial Doppler of the lower extremity revealed no flow seen in the right distal superficial femoral artery, right anterior tibial and dorsalis pedis artery. CT abdomen and pelvis revealed moderate ascites, cirrhotic liver. Colonic diverticulosis, small bilateral pleural effusion with overlying compressive atelectasis. CT head negative for acute intracranial abnormality. CT abdomen and pelvis revealed moderate ascites, cirrhotic liver. Colonic diverticulosis, small bilateral pleural effusion with overlying compressive atelectasis. CT angio with run off revealed- Advanced atherosclerotic disease. Phtc-pb-qnemgsjn stenosis of the infrarenal abdominal aorta partially imaged. High-grade stenosis or focal occlusion of the proximal right common iliac artery. Occluded right superficial femoral and popliteal arteries. 2-vessel runoff to the right foot via the anterior tibial and peroneal arteries. Moderate high-grade stenosis of the left common iliac artery. Occluded distal left superficial femoral artery and popliteal arteries. Ascites. PMH-HTN, PAD, BPH, Zznt-xj-xguqxklw stenosis of the juxtarenal abdominal aorta. Xvzn-ht-ezetcxlq stenosis of the superior mesenteric. 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 Wiqk-ww-ksaodmdn stenosis of the left renal artery. High- grade stenosis or occlusion of the proximal right common iliac artery. PSH- status post bilateral lower extremity stent Allergy- Personal History/ Social History- history of alcoholism but exacerbation patient did not drink alcohol last couple of months when he was in rehab. Patient was seen today at the bedside. Patient Cardiovascular- deny acute chest pain or shortness of breath or cough or palpitation Respiratory denies cough or short of breath or wheezing Gastrointestinal- denies any rectal bleeding, nausea or vomiting Musculoskeletal-denies acute joint swelling or tenderness or redness Neurological- denies acute dysarthria, dysphagia, change in vision Psychiatry- denies depression or SI or HI Skin- denies acute rash or purpura Patient was seen today for clinical evaluation. Labs and chart reviewed. Patient has right above-knee amputation was postponed it today, rescheduled for tomorrow. Hemoglobin today 8.1. Objective vital signs Vital Sign Date Time Temp Pulse Resp B/P (MAP) Pulse Ox O2 Delivery O2 Flow Rate FiO2 02/08/25 11:13 72 102/76 02/08/25 09:00 98.5 20 92 98.5 02/08/25 08:12 Nasal Cannula* 2 28 Total Intake and Output 02/07/25 02/07/25 02/08/25 15:00 23:00 07:00 Intake Total 352.5 ml 700 ml 850 ml Output Total 1400 ml 800 ml Balance 352.5 ml -700 ml 50 ml medications Current Medications Medications Dose Ordered Sig/Omar Route Start Time Stop Time Status Last Admin Dose Admin Ascorbic Acid 500 mg BID PO 01/28/25 22:00 02/08/25 10:10 500 MG Acetaminophen 650 mg Q6HP PRN PO 01/28/25 19:00 02/08/25 07:57 650 MG Nitroglycerin 0.4 mg Q5MINP PRN SL 01/28/25 19:00 Atorvastatin Calcium 80 mg HS PO 01/28/25 22:00 02/07/25 21:16 80 MG Cilostazol 100 mg BID PO 01/28/25 22:00 02/07/25 21:16 100 MG Minoxidil 5 mg DAILY PO 01/29/25 10:00 02/08/25 10:11 5 MG Nicotine 1 patch DAILY TD 01/29/25 10:00 02/08/25 10:27 1 PATCH Tamsulosin HCl 0.4 mg DAILY PO 01/29/25 10:00 Hold 01/31/25 10:53 0.4 MG Cefepime HCl 50 ml @ 12.5 mls/hr Q12HR IV 01/29/25 22:00 02/08/25 10:07 12.5 MLS/HR Vancomycin HCl 0 ml @ 0 mls/hr UD IV 01/29/25 15:00 Vancomycin HCl 250 ml @ 200 mls/hr Q12H IV 01/29/25 20:00 02/08/25 07:56 200 MLS/HR Haloperidol Lactate 5 mg Q8HP PRN IM 01/29/25 17:00 01/30/25 22:01 5 MG Folic Acid 1 mg/ Dextrose 50.2 ml @ 200.8 mls/ hr DAILY INJ 01/31/25 10:00 UNV Folic Acid 1 mg DAILY PO 01/31/25 10:00 02/08/25 10:11 1 MG Multivitamins/ Minerals 1 tab DAILY PO 02/01/25 10:00 02/08/25 10:12 1 TAB Enteral Nutritional Formula 240 ml TID PO 02/02/25 14:00 02/07/25 21:32 240 ML Thiamine HCl 250 mg DAILY IV 02/03/25 10:00 02/08/25 09:59 UNV Metoprolol Tartrate 12.5 mg BID PO 02/02/25 22:00 02/08/25 10:13 12.5 MG Pantoprazole Sodium 40 mg BID IV 02/02/25 22:00 02/08/25 10:04 40 MG Sucralfate 1 gm QIDACHS PO 02/02/25 22:00 02/07/25 21:16 1 GM Lactulose 30 ml BID PO 02/03/25 10:45 02/06/25 22:46 30 ML Furosemide 20 mg DAILY PO 02/04/25 10:00 02/08/25 10:12 20 MG Spironolactone 25 mg DAILY PO 02/04/25 10:00 02/08/25 10:11 25 MG Acetaminophen/ Hydrocodone Bitart 1 tab Q4HPRN PRN PO 02/06/25 22:45 02/08/25 10:13 1 TAB laboratory and microbiology Laboratory Tests 02/08/25 05:24 Test 02/08/25 05:24 Range/Units Serum Glucose 116 H 74-106 mg/dL Microbiology Date/Time Source Procedure Growth Status 02/03/25 08:40 Blood Blood Culture - Final NO GROWTH AFTER 5 DAYS OF INCUBATION. Complete 01/30/25 18:49 Foot Right Gram Stain - Final Complete 01/30/25 18:49 Wound Culture - Final Pseudomonas aeruginosa Stenotrophomonas maltophilia Enterococcus faecalis Methicillin Resistant S.aureus Complete 01/30/25 11:20 Voided Urine Urine Culture - Final Complete Problem List/Assessment/Plan Problem List/Assessment/Plan Assessment and plan--Patient had Aortogram with right lower extremity arteriogram right common iliac artery angioplasty, status post stent placement. As per Dr. Cali patient is scheduled for right above-knee amputation tomorrow. Patient was also seen by radio time sales supervisor day before yesterday, recommendation reviewed and appreciated. Gastroenterology recommended for outpatient colonoscopy once patient was recommended from his current illness. Sepsis likely due to right foot cellulitis right foot ulcer with a black eschar on the medial and inferior surface of the foot, with redness and skin excoriation of the rest of the foot\ Right foot cellulitis with a blackish care Necrotizing soft tissue infection of the right foot Right foot abscess Right foot wet gangrene Right foot osteomyelitis Severe anemia, S/P BT - pRBC Likely GI bleeding. FOBT Positive Acute retention of urine likely due to BPH Metabolic encephalopathy/toxic encephalopathy Suspected Wernicke's encephalopathy Hepatitis-C positive Cirrhosis of liver Peripheral arterial disease A-Fib/AV roslyn reentry tachycardia/paroxysmal SVT Severe vasculopathy BPH Constipation Hyperlipidemia Hypertension Ruled out UTI CT angio with run off revealed- Advanced atherosclerotic disease. Cjip-ou-nwvshbrt stenosis of the infrarenal abdominal aorta partially imaged. High-grade stenosis or focal occlusion of the proximal right common iliac artery. Occluded right superficial femoral and popliteal arteries. 2-vessel runoff to the right foot via the anterior tibial and peroneal arteries. Moderate high-grade stenosis of the left common iliac artery. Occluded distal left superficial femoral artery and popliteal arteries. Ascites. Patient had Aortogram with right lower extremity arteriogram right common iliac artery angioplasty, status post stent placement. On 02/05/2025- GI- endoscopy, had a 1-2 cm sliding-type hiatal hernia with grade A erosive esophagitis with mild gastroduodenitis with superficial pre- pyloric and duodenal erosions. Plan Blood culture negative Wound culture revealed E coli, MRSA, Pseudomonas aeruginosa, Providencia stuartii. CT abdomen and pelvis revealed moderate ascites, cirrhotic liver. Colonic diverticulosis, small bilateral pleural effusion with overlying compressive atelectasis On 02/02/2025-x-ray of [facility]-nonobstructive gas pattern 02/03/2024 CT angio with run off revealed- Advanced atherosclerotic disease. Jyia-yp-wbielomd stenosis of the infrarenal abdominal aorta partially imaged. High-grade stenosis or focal occlusion of the proximal right common iliac artery. Occluded right superficial femoral and popliteal arteries. 2-vessel runoff to the right foot via the anterior tibial and peroneal arteries. Moderate high-grade stenosis of the left common iliac artery. Occluded distal left superficial femoral artery and popliteal arteries. Ascites. Continue cefepime and vancomycin as prescribed Continue pain medication as prescribed Pantoprazole as prescribed Tamsulosin 0.4 mg p.o. daily Cilostazol 100 mg p.o. b.i.d. Atorvastatin 80 mg p.o. HS Aspirin 81 mg p.o. daily Metoprolol tartrate 12.5 mg p.o. b.i.d. Continue thiamine as prescribed Continue folic acid as prescribed spironolactone 25 mg q.d., Lasix 20 mg p.o. daily. As per Dr. Cali patient is scheduled for right above-knee amputation tomorrow. Goals of care, Code status ; discussed with >15 minutes PUD prophylaxis: Pantoprazole DVT prophylaxis: SCD Plan discussed with Dr. Cotton , nursing staff, Total time spent on patient evaluation, chart review, assessment and plan, discussion discussion >35 minutes Plan discussed with: Patient, Other (RN) Dietary Evaluation Review Recommendations by RD: Increase Calorie Intake, Protein Supplementation Comments: 1) Ensure Enlive 240ml QID (ordered per ONS protocol) 2) Jose A 1 pk BID (ordered per ONS protocol) 3) Continue current POC Expected Outcomes/Goals: wound healing to improve to meet 75% estimated energy & protein needs fu 3-5 days Interpretation of weight loss: >10% in 6 months Fluid Accumulation (Non Severe: Mild fluid retention Protein Calorie Malnutrition: Severe Is there a minimum of two crit: Yes CC Plasma Assessment Blood Product Administration S: 15:10 Date of Service: Feb 08, 2025 Billing Provider: DOLORES KAT MD Common Visit Codes: [id number] INP/OBS CARE(HIGH) BILLY MORENO RESIDENT Feb 08, 2025 14:57 DOLORSE KAT MD February 11, 2025 20:13
--- NOTE | 2025-02-08 22:35 | DVHPN2 ---
Progress Note - Dictate Date Seen: Feb 08, 2025 Has the PT tested + for MRSA If YES, has PT been informed?: No Medical Necessity Reason Pt with a Central, PICC or Fol: No The following are medically ne: Aviles Catheter Subjective Patient was seen and evaluated in follow up. Patient is on 2 LPM NC. Right AKA was postponed today and is rescheduled for tomorrow. HGB 8.1, HCT 24.7, CA 7.9, AST 48, ALT 46. Telemetry reviewed. vital signs Vital Sign Date Time Temp Pulse Resp B/P (MAP) Pulse Ox O2 Delivery O2 Flow Rate FiO2 02/08/25 11:13 72 102/76 02/08/25 08:12 Nasal Cannula* 2 28 02/08/25 05:00 98.1 18 95 98.1 Total Intake and Output 02/07/25 02/07/25 02/08/25 14:59 22:59 06:59 Intake Total 352.5 ml 700 ml 850 ml Output Total 1400 ml 800 ml Balance 352.5 ml -700 ml 50 ml medications Current Medications Medications Dose Ordered Sig/Omar Route Start Time Stop Time Status Last Admin Dose Admin Ascorbic Acid 500 mg BID PO 01/28/25 22:00 02/08/25 10:10 500 MG Acetaminophen 650 mg Q6HP PRN PO 01/28/25 19:00 02/08/25 07:57 650 MG Nitroglycerin 0.4 mg Q5MINP PRN SL 01/28/25 19:00 Atorvastatin Calcium 80 mg HS PO 01/28/25 22:00 02/07/25 21:16 80 MG Cilostazol 100 mg BID PO 01/28/25 22:00 02/07/25 21:16 100 MG Minoxidil 5 mg DAILY PO 01/29/25 10:00 02/08/25 10:11 5 MG Nicotine 1 patch DAILY TD 01/29/25 10:00 02/08/25 10:27 1 PATCH Tamsulosin HCl 0.4 mg DAILY PO 01/29/25 10:00 Hold 01/31/25 10:53 0.4 MG Cefepime HCl 50 ml @ 12.5 mls/hr Q12HR IV 01/29/25 22:00 02/08/25 10:07 12.5 MLS/HR Vancomycin HCl 0 ml @ 0 mls/hr UD IV 01/29/25 15:00 Vancomycin HCl 250 ml @ 200 mls/hr Q12H IV 01/29/25 20:00 02/08/25 07:56 200 MLS/HR Haloperidol Lactate 5 mg Q8HP PRN IM 01/29/25 17:00 01/30/25 22:01 5 MG Folic Acid 1 mg/ Dextrose 50.2 ml @ 200.8 mls/ hr DAILY INJ 01/31/25 10:00 UNV Folic Acid 1 mg DAILY PO 01/31/25 10:00 02/08/25 10:11 1 MG Multivitamins/ Minerals 1 tab DAILY PO 02/01/25 10:00 02/08/25 10:12 1 TAB Enteral Nutritional Formula 240 ml TID PO 02/02/25 14:00 02/07/25 21:32 240 ML Thiamine HCl 250 mg DAILY IV 02/03/25 10:00 02/08/25 09:59 UNV Metoprolol Tartrate 12.5 mg BID PO 02/02/25 22:00 02/08/25 10:13 12.5 MG Pantoprazole Sodium 40 mg BID IV 02/02/25 22:00 02/08/25 10:04 40 MG Sucralfate 1 gm QIDACHS PO 02/02/25 22:00 02/07/25 21:16 1 GM Lactulose 30 ml BID PO 02/03/25 10:45 02/06/25 22:46 30 ML Furosemide 20 mg DAILY PO 02/04/25 10:00 02/08/25 10:12 20 MG Spironolactone 25 mg DAILY PO 02/04/25 10:00 02/08/25 10:11 25 MG Acetaminophen/ Hydrocodone Bitart 1 tab Q4HPRN PRN PO 02/06/25 22:45 02/08/25 10:13 1 TAB objective GENERAL: Alert and oriented x 3. No acute distress. EYES: PERRL, EOMI. Anicteric. HENT: Moist mucous membranes. LUNGS: Clear to auscultation bilaterally. CARDIOVASCULAR: Regular rate and rhythm. ABDOMEN: Soft, nontender and nondistended. EXTREMITIES: No edema. NEUROLOGIC: No focal neurological deficits. SKIN: Warm, dry. laboratory and microbiology Laboratory Tests 02/08/25 05:24 Test 02/08/25 05:24 Range/Units Serum Glucose 116 H 74-106 mg/dL Problem List Atrioventricular roslyn reentry tachycardia. Questionable atrial fibrillation. Nonsustained ventricular tachycardia. Peripheral arterial disease status post bilateral lower extremity stents. Rule out structural heart disease. Hypertension. Hyperlipidemia. Severe anemia requiring PRBC transfusion. GI bleed with positive Hemoccult. Hypokalemia. Sepsis. Right foot osteomyelitis. Necrotizing wound to right foot. Assessment/Plan Continued all current supportive medical care. Morphine and [place] for pain management. Lipitor, Metoprolol. IV antibiotics as ordered. Diuretics with Lasix. GI prophylactics. Nitro SL. Additional plan as per the hospital course. Dietary Evaluation Review Recommendations by RD: Increase Calorie Intake, Protein Supplementation Comments: 1) Ensure Enlive 240ml QID (ordered per ONS protocol) 2) Jose A 1 pk BID (ordered per ONS protocol) 3) Continue current POC Expected Outcomes/Goals: wound healing to improve to meet 75% estimated energy & protein needs fu 3-5 days Interpretation of weight loss: >10% in 6 months Fluid Accumulation (Non Severe: Mild fluid retention Protein Calorie Malnutrition: Severe Is there a minimum of two crit: Yes Plan discussed with: Patient CC Plasma Assessment Blood Product Administration S: 15:10 DEWAYNE SAMANO MD Feb 08, 2025 12:47
[2025-02-08] MEDS: MELATONIN 5 MG TAB PO ONE (23:31)
[2025-02-09] VITALS (8 sets, daily range): BP systolic 107–137; BP diastolic 54–75; PULSE 83–114; RESP 17–19; TEMP 97.7–99.5; O2SAT 93–98
[2025-02-09] MEDS ORDERED: fentaNYL CITRATE 100 MCG/2 ML VL ONE (07:11)
[2025-02-09] MEDS ORDERED: MIDAZOLAM HCL 2MG/2ML 2ml VIAL (1mg/ml) ONE (07:11)
[2025-02-09] MEDS ORDERED: PHENYLEPHRINE HCL 10 MG/ML VL ONE (07:40)
[2025-02-09] MEDS ORDERED: PROPOFOL 10 MG/ML 20 ML IV ONE (07:41)
[2025-02-09] MEDS ORDERED: MEPERIDINE HCL (25 MG/ML) 1ML VIAL IV PRN (08:45)
[2025-02-09] MEDS ORDERED: HYDROmorphone HCL 2 MG/ML VL/or syr IV PRN (08:45)
[2025-02-09] MEDS ORDERED: ACETAMINOPHEN IV 1000 MG/100ML (10MG/ML) IV PRN (08:45)
--- NOTE | 2025-02-09 08:46 | DVHOP2 ---
Operative Report - 2 Report Details Date: 02/09/25 Preop Diagnosis: Right foot gangrene severe peripheral vascular disease Postop Diagnosis: Same. Surgeon: Wyatt Cali MD Anesthesiologist: Anton Anesthesia: Mac, Regional Consent: The patient was informed of the risks and benefits of the procedure. These include but are not limited to complications of anesthesia, postoperative infection, incomplete relief of symptoms, recurrence of symptoms, damage to blood vessels, nerves and tendons, deep venous thrombosis, pulmonary embolism and possible need for repeat surgery in the future. Name of Procedure Performed Right above knee amputation Procedure Details Procedure Details: Patient was identified in the preop hold area is being Mr. Gideon perez. He was consented and preopped by myself he was brought back to the freezer laboratory technician placed on the operative table in the supine position after adequate induction of anesthesia antibiotics and time-out the right leg was prepped and draped in normal surgical fashion a fishmouth incision was made above the knee. Bovie cauterization was used for hemostasis. Dissection was taken down through the quadriceps the saphenous vein was identified and ligated proximally and distally with 4-0 silk sutures. The occluded SFA and stent was encountered this was transected the femoral vein was then isolated and tied off with 0 silk sutures. The muscles of the hamstring were all divided the bone of the femur was freed up of all muscle bone saw was used to transect the femur specimen was sent off for pathology. The right leg was then irrigated and the wound was then closed after hemostasis was obtained with Bovie cauterization the deep layers were closed with 2-0 Vicryl sutures followed by a dermal layer of 2-0 Vicryl sutures followed by skin closure with catal[place]. Patient tolerated procedure well patient was taken to recovery room in stable condition and sponge and needle counts were correct. Condition Good Disposition pacu WYATT CALI Jr., MD February 09, 2025 08:46
[2025-02-09 10:11] LABS: Basophils # (auto) 0.1 10 ^3/uL (0-0.2); Eosinophils # (auto) 0.1 10 ^3/uL (0-0.8); Lymphocytes # (auto) 1.1 10 ^3/uL (0.4-5.4); Monocytes # (auto) 0.6 10 ^3/uL (0-1.3)
[2025-02-09 10:14] LABS: Basophils % (auto) 1.2 % (0.0-2.0); Eosinophils % (auto) 1.5 % (0.0-7.0); Hematocrit 27.8 % (41.0-53.0); Hemoglobin 8.7 g/dL (13.5-17.5); Lymphocytes % (auto) 15.5 % (10.0-50.0); Mean Corpuscular Hemoglobin 26.8 pg (28.0-32.0); Mean Corpuscular Hgb Conc. 31.2 g/dL (32.0-36.0); Mean Corpuscular Volume 85.8 fL (80.0-100.0); Monocytes % (auto) 8.2 % (0.0-12.0); Neutrophils # (auto) 5.1 10 ^3/uL (1.6-8.6); Neutrophils % (auto) 73.6 % (37.0-80.0); Nucleated Red Blood Cells % 0.1 %; Platelet Count (auto) 266 10^3/uL (140-450); Red Blood Cells 3.23 10^6/uL (4.5-5.90); Red Cell Distribution Width 19.2 % (11.8-14.3)
[2025-02-09 10:27] LABS: Alkaline Phosphatase 83 U/L (46-116); Carbon Dioxide 27 mmol/L (20-31); Chloride 105 mmol/L (98-107)
[2025-02-09 10:28] LABS: Anion Gap 4 (5-15); Aspartate Aminotransferase 32 U/L (13-40); BUN/Creatinine Ratio 26.5 (10.0-20.0); Blood Urea Nitrogen 13 mg/dL (9-23); Potassium 4.3 mmol/L (3.5-5.1); Sodium 136 mmol/L (136-145); Total Protein 6.1 g/dL (5.7-8.2)
[2025-02-09 10:31] LABS: Alanine Aminotransferase 42 U/L (7-40); Albumin 2.6 g/dL (3.2-4.8); Bilirubin, Total 0.2 mg/dL (0.2-1.0); Calcium 8.2 mg/dL (8.7-10.4); Glucose 118 mg/dL (74-106)
--- NOTE | 2025-02-09 10:57 | DVHPN2 ---
Progress Note Date Seen: February 09, 2025 Resident Creating Document: BUD ROY RESIDENT Has the PT tested + for MRSA If YES, has PT been informed?: No Medical Necessity Reason Pt with a Central, PICC or Fol: No The following are medically ne: Aviles Catheter Subjective Review of Systems Patient seen and examined at the bedside. Patient reported no active GI complaints. Advance diet as tolerated. Patient reports: No new complaints, Feels better Objective vital signs Vital Sign Date Time Temp Pulse Resp B/P (MAP) Pulse Ox O2 Delivery O2 Flow Rate FiO2 02/09/25 09:18 84 93/61 (72) 96 02/09/25 09:06 17 02/09/25 08:55 Room Air 96 02/09/25 08:31 7.0 02/09/25 08:31 97.1 97.1 Total Intake and Output 02/08/25 02/08/25 02/09/25 14:59 22:59 06:59 Intake Total 350 ml 900 ml 555 ml Output Total 1200 ml 1450 ml Balance 350 ml -300 ml -895 ml medications Current Medications Medications Dose Ordered Sig/Omar Route Start Time Stop Time Status Last Admin Dose Admin Ascorbic Acid 500 mg BID PO 01/28/25 22:00 02/08/25 23:32 500 MG Acetaminophen 650 mg Q6HP PRN PO 01/28/25 19:00 02/08/25 07:57 650 MG Nitroglycerin 0.4 mg Q5MINP PRN SL 01/28/25 19:00 Atorvastatin Calcium 80 mg HS PO 01/28/25 22:00 02/08/25 23:29 80 MG Cilostazol 100 mg BID PO 01/28/25 22:00 02/07/25 21:16 100 MG Minoxidil 5 mg DAILY PO 01/29/25 10:00 02/08/25 10:11 5 MG Nicotine 1 patch DAILY TD 01/29/25 10:00 02/08/25 10:27 1 PATCH Tamsulosin HCl 0.4 mg DAILY PO 01/29/25 10:00 Hold 01/31/25 10:53 0.4 MG Cefepime HCl 50 ml @ 12.5 mls/hr Q12HR IV 01/29/25 22:00 02/08/25 23:30 12.5 MLS/HR Vancomycin HCl 0 ml @ 0 mls/hr UD IV 01/29/25 15:00 Vancomycin HCl 250 ml @ 200 mls/hr Q12H IV 01/29/25 20:00 02/08/25 20:06 200 MLS/HR Haloperidol Lactate 5 mg Q8HP PRN IM 01/29/25 17:00 01/30/25 22:01 5 MG Folic Acid 1 mg/ Dextrose 50.2 ml @ 200.8 mls/ hr DAILY INJ 01/31/25 10:00 UNV Folic Acid 1 mg DAILY PO 01/31/25 10:00 02/08/25 10:11 1 MG Multivitamins/ Minerals 1 tab DAILY PO 02/01/25 10:00 02/08/25 10:12 1 TAB Enteral Nutritional Formula 240 ml TID PO 02/02/25 14:00 02/08/25 15:18 240 ML Thiamine HCl 250 mg DAILY IV 02/03/25 10:00 02/08/25 09:59 UNV Metoprolol Tartrate 12.5 mg BID PO 02/02/25 22:00 02/08/25 23:33 12.5 MG Pantoprazole Sodium 40 mg BID IV 02/02/25 22:00 02/08/25 23:32 40 MG Sucralfate 1 gm QIDACHS PO 02/02/25 22:00 02/08/25 23:31 1 GM Lactulose 30 ml BID PO 02/03/25 10:45 02/08/25 23:34 30 ML Furosemide 20 mg DAILY PO 02/04/25 10:00 02/08/25 10:12 20 MG Spironolactone 25 mg DAILY PO 02/04/25 10:00 02/08/25 10:11 25 MG Acetaminophen/ Hydrocodone Bitart 1 tab Q4HPRN PRN PO 02/06/25 22:45 02/08/25 20:06 1 TAB Cyanocobalamin 1,000 mcg DAILY PO 02/10/25 10:00 02/14/25 09:59 Thiamine HCl 100 mg DAILY PO 02/10/25 10:00 Iron Sucrose 110 ml @ 110 mls/hr DAILY@1200 IV 02/09/25 12:00 02/13/25 12:59 UNV Examination General examination- patient is awake , alert HEENT- PEERLA, no acute nasal discharge Cardiovascular- S1-S2 audible, rate and rhythm regular, no murmur Respiratory- CTAB, no wheeze or rhonchi Gastrointestinal-nontender, bowel sound+. Nondistended Musculoskeletal-no acute joint swelling or tenderness or redness Lower extremity- right foot ulcer with a black eschar on the medial and inferior surface of the foot, with redness Neurological- cranial nerves intact, no acute dysarthria or dysphagia Psychiatry- denies depression or SI or HI Skin- right foot ulcer with a black eschar on the medial and inferior surface of the foot, with redness laboratory and microbiology Laboratory Tests 02/09/25 09:58 Test 02/09/25 09:58 Range/Units Serum Glucose 118 H 74-106 mg/dL Microbiology Date/Time Source Procedure Growth Status 02/03/25 08:40 Blood Blood Culture - Final NO GROWTH AFTER 5 DAYS OF INCUBATION. Complete 01/30/25 18:49 Foot Right Gram Stain - Final Complete 01/30/25 18:49 Wound Culture - Final Pseudomonas aeruginosa Stenotrophomonas maltophilia Enterococcus faecalis Methicillin Resistant S.aureus Complete 01/30/25 11:20 Voided Urine Urine Culture - Final Complete Labs and/or images reviewed: Labs reviewed by me, Image(s) reviewed by me Problem List/Assessment/Plan Problem List/Assessment/Plan Hiatal hernia Hepatitis-C antibody positive History of alcoholic liver cirrhosis Gradient erosive esophagitis Mild gastroduodenitis Severe anemia, S/P BT - pRBC Likely GI bleeding. FOBT Positive Peripheral artery disease AFib Metabolic encephalopathy Sepsis likely due to right foot cellulitis Necrotizing soft tissue infection of the right foot Plan: -Protonix 40 mg IV b.i.d. -Carafate 1 g p.o. twice a day -Resume GI soft diet and advanced as tolerated -Patient underwent foot surgery s/p Aortogram with right lower extremity arteriogram right common iliac artery angioplasty -Outpatient follow up with the GI for to discuss about hepatitis-C, liver cirrhosis and elective colonoscopy once patient is recovered from his current illness Thank you so much for the opportunity to consult on your patient. GI team will follow the patient Case an action plan discussed with Dr. Aiyana Saldana. Complex care planning needed total 49 minutes of detailed discussion. Plan discussed with: Patient Dietary Evaluation Review Recommendations by RD: Increase Calorie Intake, Protein Supplementation Comments: 1) Ensure Enlive 240ml QID (ordered per ONS protocol) 2) Jose A 1 pk BID (ordered per ONS protocol) 3) Continue current POC Expected Outcomes/Goals: wound healing to improve to meet 75% estimated energy & protein needs fu 3-5 days Interpretation of weight loss: >10% in 6 months Fluid Accumulation (Non Severe: Mild fluid retention Protein Calorie Malnutrition: Severe Is there a minimum of two crit: Yes CC Plasma Assessment Blood Product Administration S: 15:10 BUD ROY RESIDENT February 09, 2025 10:57
[2025-02-09] MEDS: BUPIVACAINE 0.5% MPF INJ 30ML SDV IJ ONE (11:19)
[2025-02-09] MEDS: ceFAZolin 2 GM/D5W50ml 50 ML IV ONE (11:19)
[2025-02-09] MEDS: ONDANSETRON HCL 4 MG/2 ML VIAL IV ONE (11:45)
[2025-02-09] MEDS: THIAMINE HCL 100 MG TAB PO ONE (11:55)
[2025-02-09] MEDS: CYANOCOBALAMIN 500 MCG TAB PO ONE (11:56)
[2025-02-09] MEDS ORDERED: IRON SUCROSE COMPLEX 110 ML IV SCH (12:00)
[2025-02-09] MEDS: IRON SUCROSE COMPLEX 110 ML IV SCH (15:47)
[2025-02-09] MEDS: MORPHINE SULFATE INJ 2 MG/ml SYRG IV PRN (15:48)
[2025-02-09] MEDS ORDERED: VANCOMYCIN PER PHARMACY 0 MG IV SCH (18:15)
--- NOTE | 2025-02-09 18:17 | DVHPNRES ---
Progress Note Date Seen: February 09, 2025 Resident Creating Document: BILLY MORENO RESIDENT Has the PT tested + for MRSA If YES, has PT been informed?: No Medical Necessity Reason Pt with a Central, PICC or Fol: No The following are medically ne: Aviles Catheter Subjective Review of Systems This is a 64-year-old cachectic male with PMH of HTN, PAD, BPH, vasculopathy, Rqnh-hi-yfabntxs stenosis of the juxtarenal abdominal aorta. Kjep-xd-czszvebv stenosis of the superior mesenteric. 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 Luih-dt-lbhprdsg stenosis of the left renal artery. 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 and recent bilateral lower extremity stent placement presents to ED with chief complaint of generalized weakness since he left rehab center three days ago. He had his blood drawn at the rehab center for which has showed hemoglobin of 5.9. The patient was instructed to go to the nearest ER for blood transfusion. He denied bloody stool and hematemesis. He denies taking anticoagulant. The patient reports heavy alcohol abuse quit four months ago. The patient hemoglobin found to be 5.4 with lactic acid 4.3. UDS negative, serum alcohol< 3.0. . Upon evaluating patient in ER bed 12, notable foul odor noted to his right foot with dressing in place. The dressing was saturated removed and multiple open sores with pus were present. The patient states that his right leg wound has been dressed two days ago and currently under treatment without being prescribed any antibiotics. The patient is currently receiving packed red blood cell transfusion. The patient is concerned about his symptoms and would like to be further evaluated and treated. The patient will be admitted under hospitalist care to the telemetry unit for continuous monitoring. The patient denies fever, chills, headache, dizziness, palpitation, chest pain, nausea, vomiting, abdominal pain, diarrhea, constipation and other associated symptoms. The plan has been discussed with the patient in which all questions concerns have been addressed. Initial lab workup revealed leukocytosis with WBC 17.4, severe anemia with a hemoglobin 5.4. UDS negative, serum alcohol< 3.0. CXR-No pulmonary airspace consolidation. Ultrasound of the abdomen revealed- Atrophic right kidney. Distended bladder with debris. Gallbladder sludge.Bladder volume measures 1848 cc. Doppler study of the lower extremity negative for DVT. Arterial Doppler of the lower extremity revealed no flow seen in the right distal superficial femoral artery, right anterior tibial and dorsalis pedis artery. CT abdomen and pelvis revealed moderate ascites, cirrhotic liver. Colonic diverticulosis, small bilateral pleural effusion with overlying compressive atelectasis. CT head negative for acute intracranial abnormality. CT abdomen and pelvis revealed moderate ascites, cirrhotic liver. Colonic diverticulosis, small bilateral pleural effusion with overlying compressive atelectasis. CT angio with run off revealed- Advanced atherosclerotic disease. Yurn-ff-uonfkfdw stenosis of the infrarenal abdominal aorta partially imaged. High-grade stenosis or focal occlusion of the proximal right common iliac artery. Occluded right superficial femoral and popliteal arteries. 2-vessel runoff to the right foot via the anterior tibial and peroneal arteries. Moderate high-grade stenosis of the left common iliac artery. Occluded distal left superficial femoral artery and popliteal arteries. Ascites. PMH-HTN, PAD, BPH, Vmip-nc-qlwqxejx stenosis of the juxtarenal abdominal aorta. Gxuj-mk-phmgxrqu stenosis of the superior mesenteric. 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 Shxy-vk-mrxwbgpv stenosis of the left renal artery. High- grade stenosis or occlusion of the proximal right common iliac artery. PSH- status post bilateral lower extremity stent Allergy- Personal History/ Social History- history of alcoholism but exacerbation patient did not drink alcohol last couple of months when he was in rehab. Patient was seen today at the bedside. Patient Cardiovascular- deny acute chest pain or shortness of breath or cough or palpitation Respiratory denies cough or short of breath or wheezing Gastrointestinal- denies any rectal bleeding, nausea or vomiting Musculoskeletal-denies acute joint swelling or tenderness or redness Neurological- denies acute dysarthria, dysphagia, change in vision Psychiatry- denies depression or SI or HI Skin- denies acute rash or purpura Patient was seen today for clinical evaluation. Labs and chart reviewed. P meliton had right above-knee amputation today morning. Patient was scheduled for left lower extremity arteriogram on Thursday. Ordered IV iron, thiamine, vitamin B12. Objective vital signs Vital Sign Date Time Temp Pulse Resp B/P (MAP) Pulse Ox O2 Delivery O2 Flow Rate FiO2 02/09/25 17:00 99.0 113 19 137/75 (95) 94 99.0 02/09/25 08:55 Room Air 96 02/09/25 08:31 7.0 Total Intake and Output 02/08/25 02/08/25 02/09/25 15:00 23:00 07:00 Intake Total 400 ml 850 ml 555 ml Output Total 1200 ml 1450 ml Balance 400 ml -350 ml -895 ml medications Current Medications Medications Dose Ordered Sig/Omar Route Start Time Stop Time Status Last Admin Dose Admin Ascorbic Acid 500 mg BID PO 01/28/25 22:00 02/09/25 11:55 500 MG Acetaminophen 650 mg Q6HP PRN PO 01/28/25 19:00 02/08/25 07:57 650 MG Nitroglycerin 0.4 mg Q5MINP PRN SL 01/28/25 19:00 Atorvastatin Calcium 80 mg HS PO 01/28/25 22:00 02/08/25 23:29 80 MG Cilostazol 100 mg BID PO 01/28/25 22:00 02/09/25 11:55 100 MG Minoxidil 5 mg DAILY PO 01/29/25 10:00 02/09/25 11:54 5 MG Nicotine 1 patch DAILY TD 01/29/25 10:00 02/09/25 11:54 1 PATCH Tamsulosin HCl 0.4 mg DAILY PO 01/29/25 10:00 Hold 01/31/25 10:53 0.4 MG Cefepime HCl 50 ml @ 12.5 mls/hr Q12HR IV 01/29/25 22:00 02/09/25 11:48 12.5 MLS/HR Haloperidol Lactate 5 mg Q8HP PRN IM 01/29/25 17:00 01/30/25 22:01 5 MG Folic Acid 1 mg/ Dextrose 50.2 ml @ 200.8 mls/ hr DAILY INJ 01/31/25 10:00 UNV Folic Acid 1 mg DAILY PO 01/31/25 10:00 02/09/25 11:56 1 MG Multivitamins/ Minerals 1 tab DAILY PO 02/01/25 10:00 02/09/25 11:54 1 TAB Enteral Nutritional Formula 240 ml TID PO 02/02/25 14:00 02/09/25 15:50 240 ML Thiamine HCl 250 mg DAILY IV 02/03/25 10:00 02/08/25 09:59 UNV Metoprolol Tartrate 12.5 mg BID PO 02/02/25 22:00 02/09/25 11:56 12.5 MG Pantoprazole Sodium 40 mg BID IV 02/02/25 22:00 02/09/25 11:56 40 MG Sucralfate 1 gm QIDACHS PO 02/02/25 22:00 02/09/25 17:33 1 GM Lactulose 30 ml BID PO 02/03/25 10:45 02/08/25 23:34 30 ML Furosemide 20 mg DAILY PO 02/04/25 10:00 02/09/25 11:55 20 MG Spironolactone 25 mg DAILY PO 02/04/25 10:00 02/09/25 11:55 25 MG Acetaminophen/ Hydrocodone Bitart 1 tab Q4HPRN PRN PO 02/06/25 22:45 02/09/25 17:34 1 TAB Cyanocobalamin 1,000 mcg DAILY PO 02/10/25 10:00 02/14/25 09:59 Thiamine HCl 100 mg DAILY PO 02/10/25 10:00 Iron Sucrose 110 ml @ 110 mls/hr DAILY@1200 IV 02/09/25 12:00 02/10/25 11:59 02/09/25 15:47 110 MLS/HR Morphine Sulfate 2 mg Q6HPRN PRN IV 02/09/25 14:30 02/09/25 15:48 2 MG Melatonin 5 mg HS PRN PO 02/09/25 14:30 Vancomycin HCl 0 ml @ 0 mls/hr UD IV 02/09/25 18:15 Vancomycin HCl 250 ml @ 200 mls/hr Q12H IV 02/09/25 20:00 Examination General examination- patient is awake , alert HEENT- PEERLA, no acute nasal discharge Cardiovascular- S1-S2 audible, rate and rhythm regular, no murmur Respiratory- CTAB, no wheeze or rhonchi Gastrointestinal-nontender, bowel sound+. Nondistended Musculoskeletal-no acute joint swelling or tenderness or redness Lower extremity- status post right above-knee amputation Neurological- cranial nerves intact, no acute dysarthria or dysphagia Psychiatry- denies depression or SI or HI Skin- right foot ulcer with a black eschar on the medial and inferior surface of the foot, with redness and skin excoriation of the rest of the foot laboratory and microbiology Laboratory Tests 02/09/25 09:58 Test 02/09/25 09:58 Range/Units Serum Glucose 118 H 74-106 mg/dL Microbiology Date/Time Source Procedure Growth Status 02/03/25 08:40 Blood Blood Culture - Final NO GROWTH AFTER 5 DAYS OF INCUBATION. Complete 01/30/25 18:49 Foot Right Gram Stain - Final Complete 01/30/25 18:49 Wound Culture - Final Pseudomonas aeruginosa Stenotrophomonas maltophilia Enterococcus faecalis Methicillin Resistant S.aureus Complete 01/30/25 11:20 Voided Urine Urine Culture - Final Complete Problem List/Assessment/Plan Problem List/Assessment/Plan Assessment and plan--Patient had Aortogram with right lower extremity arteriogram right common iliac artery angioplasty, status post stent placement. As per Dr. Cali patient is scheduled for right above-knee amputation tomorrow. Patient was also seen by hand coke drawer day before yesterday, recommendation reviewed and appreciated. Gastroenterology recommended for outpatient colonoscopy once patient was recommended from his current illness. Sepsis likely due to right foot cellulitis Status post right above-knee amputation Right foot cellulitis with a blackish escare Necrotizing soft tissue infection of the right foot Right foot abscess Right foot wet gangrene Right foot osteomyelitis Severe anemia, S/P BT - pRBC Likely GI bleeding. FOBT Positive Acute retention of urine likely due to BPH Metabolic encephalopathy/toxic encephalopathy Suspected Wernicke's encephalopathy Hepatitis-C positive Cirrhosis of liver Peripheral arterial disease A-Fib/AV roslyn reentry tachycardia/paroxysmal SVT Severe vasculopathy BPH Constipation Hyperlipidemia Hypertension Ruled out UTI CT angio with run off revealed- Advanced atherosclerotic disease. Uuhl-il-jddzjfsc stenosis of the infrarenal abdominal aorta partially imaged. High-grade stenosis or focal occlusion of the proximal right common iliac artery. Occluded right superficial femoral and popliteal arteries. 2-vessel runoff to the right foot via the anterior tibial and peroneal arteries. Moderate high-grade stenosis of the left common iliac artery. Occluded distal left superficial femoral artery and popliteal arteries. Ascites. Patient had Aortogram with right lower extremity arteriogram right common iliac artery angioplasty, status post stent placement. On 02/05/2025- GI- endoscopy, had a 1-2 cm sliding-type hiatal hernia with grade A erosive esophagitis with mild gastroduodenitis with superficial pre- pyloric and duodenal erosions. Plan Blood culture negative Wound culture revealed E coli, MRSA, Pseudomonas aeruginosa, Providencia stuartii. CT abdomen and pelvis revealed moderate ascites, cirrhotic liver. Colonic diverticulosis, small bilateral pleural effusion with overlying compressive atelectasis On 02/02/2025-x-ray of [facility]-nonobstructive gas pattern 02/03/2024 CT angio with run off revealed- Advanced atherosclerotic disease. Dbpm-mg-kubloeoz stenosis of the infrarenal abdominal aorta partially imaged. High-grade stenosis or focal occlusion of the proximal right common iliac artery. Occluded right superficial femoral and popliteal arteries. 2-vessel runoff to the right foot via the anterior tibial and peroneal arteries. Moderate high-grade stenosis of the left common iliac artery. Occluded distal left superficial femoral artery and popliteal arteries. Ascites. Continue cefepime and vancomycin as prescribed Continue pain medication as prescribed Pantoprazole as prescribed Tamsulosin 0.4 mg p.o. daily Cilostazol 100 mg p.o. b.i.d. Atorvastatin 80 mg p.o. HS Aspirin 81 mg p.o. daily Metoprolol tartrate 12.5 mg p.o. b.i.d. Continue thiamine as prescribed Continue folic acid as prescribed spironolactone 25 mg q.d., Lasix 20 mg p.o. daily. As per Dr. Cali patient is scheduled for right above-knee amputation tomorrow. Goals of care, Code status ; discussed with >15 minutes PUD prophylaxis: Pantoprazole DVT prophylaxis: SCD Plan discussed with Dr. Cotton , nursing staff, Total time spent on patient evaluation, chart review, assessment and plan, discussion discussion >35 minutes Plan discussed with: Patient, Daughter (RN) My Orders My Orders Orders - BILLY MORENO RESIDENT Procedure Category Date Status Time Cyanocobalamin PHA 02/10/25 In Process (Vitamin B-12) 10:00 Thiamine Tab PHA 02/10/25 In Process 10:00 Iron Sucrose Complex PHA 02/09/25 In Process (Venofer) 12:00 Complete Blood Count LAB 02/10/25 Verified 04:00 Creatinine LAB 02/10/25 Verified 04:00 Dietary Evaluation Review Recommendations by RD: Increase Calorie Intake, Protein Supplementation Comments: 1) Ensure Enlive 240ml QID (ordered per ONS protocol) 2) Jose A 1 pk BID (ordered per ONS protocol) 3) Continue current POC Expected Outcomes/Goals: wound healing to improve to meet 75% estimated energy & protein needs fu 3-5 days Interpretation of weight loss: >10% in 6 months Fluid Accumulation (Non Severe: Mild fluid retention Protein Calorie Malnutrition: Severe Is there a minimum of two crit: Yes CC Plasma Assessment Blood Product Administration S: 15:10 Date of Service: February 09, 2025 Billing Provider: DOLORES KAT MD Common Visit Codes: [id number] INP/OBS CARE(HIGH) BILLY MORENO RESIDENT February 09, 2025 18:17 DOLORES KAT MD February 11, 2025 20:45
[2025-02-09] MEDS: VANCOMYCIN 1.25GM/250ML 250 ML IV SCH (20:21)
[2025-02-09] MEDS: MELATONIN 5 MG TAB PO ONE (22:32)
--- NOTE | 2025-02-09 23:19 | DVHPN2 ---
Progress Note - Dictate Date Seen: February 09, 2025 Has the PT tested + for MRSA If YES, has PT been informed?: No Medical Necessity Reason Pt with a Central, PICC or Fol: No The following are medically ne: Aviles Catheter Subjective Patient was seen and evaluated in follow up. Patient is on 2 LPM NC. Patient underwent right above knee amputation today, tolerated procedure well. HGB 8.7, HCT 27.8. Telemetry reviewed. vital signs Vital Sign Date Time Temp Pulse Resp B/P (MAP) Pulse Ox O2 Delivery O2 Flow Rate FiO2 02/09/25 11:56 76 135/72 02/09/25 09:18 96 02/09/25 09:06 17 02/09/25 08:55 Room Air 96 02/09/25 08:31 7.0 02/09/25 08:31 97.1 97.1 Total Intake and Output 02/08/25 02/08/25 02/09/25 14:59 22:59 06:59 Intake Total 350 ml 900 ml 555 ml Output Total 1200 ml 1450 ml Balance 350 ml -300 ml -895 ml medications Current Medications Medications Dose Ordered Sig/Omar Route Start Time Stop Time Status Last Admin Dose Admin Ascorbic Acid 500 mg BID PO 01/28/25 22:00 02/09/25 11:55 500 MG Acetaminophen 650 mg Q6HP PRN PO 01/28/25 19:00 02/08/25 07:57 650 MG Nitroglycerin 0.4 mg Q5MINP PRN SL 01/28/25 19:00 Atorvastatin Calcium 80 mg HS PO 01/28/25 22:00 02/08/25 23:29 80 MG Cilostazol 100 mg BID PO 01/28/25 22:00 02/09/25 11:55 100 MG Minoxidil 5 mg DAILY PO 01/29/25 10:00 02/09/25 11:54 5 MG Nicotine 1 patch DAILY TD 01/29/25 10:00 02/09/25 11:54 1 PATCH Tamsulosin HCl 0.4 mg DAILY PO 01/29/25 10:00 Hold 01/31/25 10:53 0.4 MG Cefepime HCl 50 ml @ 12.5 mls/hr Q12HR IV 01/29/25 22:00 02/09/25 11:48 12.5 MLS/HR Vancomycin HCl 0 ml @ 0 mls/hr UD IV 01/29/25 15:00 Vancomycin HCl 250 ml @ 200 mls/hr Q12H IV 01/29/25 20:00 02/09/25 11:48 200 MLS/HR Haloperidol Lactate 5 mg Q8HP PRN IM 01/29/25 17:00 01/30/25 22:01 5 MG Folic Acid 1 mg/ Dextrose 50.2 ml @ 200.8 mls/ hr DAILY INJ 01/31/25 10:00 UNV Folic Acid 1 mg DAILY PO 01/31/25 10:00 02/09/25 11:56 1 MG Multivitamins/ Minerals 1 tab DAILY PO 02/01/25 10:00 02/09/25 11:54 1 TAB Enteral Nutritional Formula 240 ml TID PO 02/02/25 14:00 02/08/25 15:18 240 ML Thiamine HCl 250 mg DAILY IV 02/03/25 10:00 02/08/25 09:59 UNV Metoprolol Tartrate 12.5 mg BID PO 02/02/25 22:00 02/09/25 11:56 12.5 MG Pantoprazole Sodium 40 mg BID IV 02/02/25 22:00 02/09/25 11:56 40 MG Sucralfate 1 gm QIDACHS PO 02/02/25 22:00 02/09/25 11:55 1 GM Lactulose 30 ml BID PO 02/03/25 10:45 02/08/25 23:34 30 ML Furosemide 20 mg DAILY PO 02/04/25 10:00 02/09/25 11:55 20 MG Spironolactone 25 mg DAILY PO 02/04/25 10:00 02/09/25 11:55 25 MG Acetaminophen/ Hydrocodone Bitart 1 tab Q4HPRN PRN PO 02/06/25 22:45 02/09/25 12:02 1 TAB Cyanocobalamin 1,000 mcg DAILY PO 02/10/25 10:00 02/14/25 09:59 Thiamine HCl 100 mg DAILY PO 02/10/25 10:00 Iron Sucrose 110 ml @ 110 mls/hr DAILY@1200 IV 02/09/25 12:00 02/10/25 11:59 UNV objective GENERAL: Alert and oriented x 3. No acute distress. EYES: PERRL, EOMI. Anicteric. HENT: Moist mucous membranes. LUNGS: Clear to auscultation bilaterally. CARDIOVASCULAR: Regular rate and rhythm. ABDOMEN: Soft, nontender and nondistended. EXTREMITIES: No edema. NEUROLOGIC: No focal neurological deficits. SKIN: Warm, dry. laboratory and microbiology Laboratory Tests 02/09/25 09:58 Test 02/09/25 09:58 Range/Units Serum Glucose 118 H 74-106 mg/dL Problem List Atrioventricular roslyn reentry tachycardia. Questionable atrial fibrillation. Nonsustained ventricular tachycardia. Peripheral arterial disease status post bilateral lower extremity stents. Rule out structural heart disease. Hypertension. Hyperlipidemia. Severe anemia requiring PRBC transfusion. GI bleed with positive Hemoccult. Hypokalemia. Sepsis. Right foot osteomyelitis. Necrotizing wound to right foot. Assessment/Plan Continued all current supportive medical care. Morphine and [place] for pain management. Lipitor, Metoprolol. IV antibiotics as ordered. Diuretics with Lasix. GI prophylactics. Nitro SL. Additional plan as per the hospital course. Dietary Evaluation Review Recommendations by RD: Increase Calorie Intake, Protein Supplementation Comments: 1) Ensure Enlive 240ml QID (ordered per ONS protocol) 2) Jose A 1 pk BID (ordered per ONS protocol) 3) Continue current POC Expected Outcomes/Goals: wound healing to improve to meet 75% estimated energy & protein needs fu 3-5 days Interpretation of weight loss: >10% in 6 months Fluid Accumulation (Non Severe: Mild fluid retention Protein Calorie Malnutrition: Severe Is there a minimum of two crit: Yes Plan discussed with: Patient CC Plasma Assessment Blood Product Administration S: 15:10 DEWAYNE SAMANO MD February 09, 2025 12:17
[2025-02-10] VITALS (8 sets, daily range): BP systolic 99–129; BP diastolic 49–68; PULSE 80–120; RESP 14–18; TEMP 97.4–98.3; O2SAT 93–96
[2025-02-10 06:11] LABS: Basophils # (auto) 0.1 10 ^3/uL (0-0.2); Basophils % (auto) 0.9 % (0.0-2.0); Eosinophils # (auto) 0.1 10 ^3/uL (0-0.8); Hemoglobin 7.7 g/dL (13.5-17.5); Mean Corpuscular Volume 81.4 fL (80.0-100.0); White Blood Cell 6.7 10^3/uL (4.4-10.8)
[2025-02-10 06:13] LABS: Eosinophils % (auto) 1.5 % (0.0-7.0); Hematocrit 23.1 % (41.0-53.0); Lymphocytes # (auto) 1.2 10 ^3/uL (0.4-5.4); Lymphocytes % (auto) 17.8 % (10.0-50.0); Mean Corpuscular Hemoglobin 27.1 pg (28.0-32.0); Mean Corpuscular Hgb Conc. 33.2 g/dL (32.0-36.0); Monocytes # (auto) 0.7 10 ^3/uL (0-1.3); Monocytes % (auto) 9.8 % (0.0-12.0); Neutrophils # (auto) 4.7 10 ^3/uL (1.6-8.6); Platelet Count (auto) 260 10^3/uL (140-450); Red Blood Cells 2.84 10^6/uL (4.5-5.90); Red Cell Distribution Width 18.9 % (11.8-14.3)
[2025-02-10 06:32] LABS: Alkaline Phosphatase 102 U/L (46-116); Anion Gap 6 (5-15); BUN/Creatinine Ratio 31.6 (10.0-20.0); Blood Urea Nitrogen 12 mg/dL (9-23); Carbon Dioxide 27 mmol/L (20-31); Chloride 104 mmol/L (98-107); Potassium 3.7 mmol/L (3.5-5.1); Sodium 137 mmol/L (136-145); Total Protein 6.1 g/dL (5.7-8.2)
[2025-02-10 06:40] LABS: Alanine Aminotransferase 42 U/L (7-40); Albumin 2.5 g/dL (3.2-4.8); Aspartate Aminotransferase 52 U/L (13-40); Bilirubin, Total 0.2 mg/dL (0.2-1.0); Calcium 7.9 mg/dL (8.7-10.4); Glucose 155 mg/dL (74-106)
[2025-02-10] MEDS: THIAMINE HCL 100 MG TAB PO SCH (09:48)
[2025-02-10] MEDS: CYANOCOBALAMIN 500 MCG TAB PO SCH (09:48)
--- NOTE | 2025-02-10 10:02 | DVHPN2 ---
Progress Note Date Seen: February 10, 2025 Resident Creating Document: BUD ROY RESIDENT Has the PT tested + for MRSA If YES, has PT been informed?: No Medical Necessity Reason Pt with a Central, PICC or Fol: No The following are medically ne: Aviles Catheter Subjective Review of Systems Patient seen and examined at the bedside. Patient reported improvement in his symptoms since admission, reported no new complaints. Patient is able to tolerate diet. Patient reports: No new complaints, Feels better Objective vital signs Vital Sign Date Time Temp Pulse Resp B/P (MAP) Pulse Ox O2 Delivery O2 Flow Rate FiO2 02/10/25 09:30 97.9 94 14 102/55 (71) 94 97.9 02/09/25 20:00 Nasal Cannula* 2 28 Total Intake and Output 02/09/25 02/09/25 02/10/25 14:59 22:59 06:59 Intake Total 300 ml 1360 ml 1250 ml Output Total 500 ml 1100 ml Balance 300 ml 860 ml 150 ml medications Current Medications Medications Dose Ordered Sig/Omar Route Start Time Stop Time Status Last Admin Dose Admin Ascorbic Acid 500 mg BID PO 01/28/25 22:00 02/10/25 09:49 500 MG Acetaminophen 650 mg Q6HP PRN PO 01/28/25 19:00 02/08/25 07:57 650 MG Nitroglycerin 0.4 mg Q5MINP PRN SL 01/28/25 19:00 Atorvastatin Calcium 80 mg HS PO 01/28/25 22:00 02/09/25 21:52 80 MG Cilostazol 100 mg BID PO 01/28/25 22:00 02/09/25 21:52 100 MG Minoxidil 5 mg DAILY PO 01/29/25 10:00 02/09/25 11:54 5 MG Nicotine 1 patch DAILY TD 01/29/25 10:00 02/09/25 11:54 1 PATCH Tamsulosin HCl 0.4 mg DAILY PO 01/29/25 10:00 Hold 01/31/25 10:53 0.4 MG Haloperidol Lactate 5 mg Q8HP PRN IM 01/29/25 17:00 01/30/25 22:01 5 MG Folic Acid 1 mg/ Dextrose 50.2 ml @ 200.8 mls/ hr DAILY INJ 01/31/25 10:00 UNV Folic Acid 1 mg DAILY PO 01/31/25 10:00 5/2/25 09:47 1 MG Multivitamins/ Minerals 1 tab DAILY PO 02/01/25 10:00 02/10/25 09:46 1 TAB Enteral Nutritional Formula 240 ml TID PO 02/02/25 14:00 02/10/25 06:00 240 ML Thiamine HCl 250 mg DAILY IV 02/03/25 10:00 02/08/25 09:59 UNV Metoprolol Tartrate 12.5 mg BID PO 02/02/25 22:00 02/09/25 21:53 12.5 MG Pantoprazole Sodium 40 mg BID IV 02/02/25 22:00 02/10/25 09:46 40 MG Sucralfate 1 gm QIDACHS PO 02/02/25 22:00 02/10/25 09:48 1 GM Lactulose 30 ml BID PO 02/03/25 10:45 02/10/25 09:42 30 ML Furosemide 20 mg DAILY PO 02/04/25 10:00 02/09/25 11:55 20 MG Spironolactone 25 mg DAILY PO 02/04/25 10:00 02/10/25 09:49 25 MG Acetaminophen/ Hydrocodone Bitart 1 tab Q4HPRN PRN PO 02/06/25 22:45 02/10/25 05:22 1 TAB Cyanocobalamin 1,000 mcg DAILY PO 02/10/25 10:00 02/14/25 09:59 02/10/25 09:48 1,000 MCG Thiamine HCl 100 mg DAILY PO 02/10/25 10:00 02/10/25 09:48 100 MG Iron Sucrose 110 ml @ 110 mls/hr DAILY@1200 IV 02/09/25 12:00 02/10/25 11:59 02/10/25 09:47 110 MLS/HR Morphine Sulfate 2 mg Q6HPRN PRN IV 02/09/25 14:30 02/09/25 22:33 2 MG Melatonin 5 mg HS PRN PO 02/09/25 14:30 Vancomycin HCl 0 ml @ 0 mls/hr UD IV 02/09/25 18:15 Vancomycin HCl 250 ml @ 200 mls/hr Q12H IV 02/09/25 20:00 02/09/25 20:21 200 MLS/HR Examination General examination- patient is awake , alert HEENT- PEERLA, no acute nasal discharge Cardiovascular- S1-S2 audible, rate and rhythm regular, no murmur Respiratory- CTAB, no wheeze or rhonchi Gastrointestinal-nontender, bowel sound+. Nondistended Musculoskeletal-no acute joint swelling or tenderness or redness Lower extremity- right foot ulcer with a black eschar on the medial and inferior surface of the foot, with redness Neurological- cranial nerves intact, no acute dysarthria or dysphagia Psychiatry- denies depression or SI or HI Skin- right foot ulcer with a black eschar on the medial and inferior surface of the foot, with redness laboratory and microbiology Laboratory Tests 02/10/25 05:01 Test 02/10/25 05:01 Range/Units Serum Glucose 155 H 74-106 mg/dL Microbiology Date/Time Source Procedure Growth Status 02/03/25 08:40 Blood Blood Culture - Final NO GROWTH AFTER 5 DAYS OF INCUBATION. Complete 01/30/25 18:49 Foot Right Gram Stain - Final Complete 01/30/25 18:49 Wound Culture - Final Pseudomonas aeruginosa Stenotrophomonas maltophilia Enterococcus faecalis Methicillin Resistant S.aureus Complete 01/30/25 11:20 Voided Urine Urine Culture - Final Complete Labs and/or images reviewed: Labs reviewed by me, Image(s) reviewed by me Problem List/Assessment/Plan Problem List/Assessment/Plan Hiatal hernia H/o Hepatitis-C infection Alcoholic liver cirrhosis Gradient erosive esophagitis Mild gastroduodenitis Severe anemia, S/P BT - pRBC Likely GI bleeding. FOBT Positive Peripheral artery disease AFib Metabolic encephalopathy Sepsis likely due to right foot cellulitis Necrotizing soft tissue infection of the right foot Plan: -Protonix 40 mg IV b.i.d. -Carafate 1 g p.o. twice a day -Resume GI soft diet and advanced as tolerated -Patient underwent foot surgery s/p Aortogram with right lower extremity arteriogram right common iliac artery angioplasty -Outpatient follow up with the GI for to discuss about liver cirrhosis and elective colonoscopy once patient is recovered from his current illness Thank you so much for the opportunity to consult on your patient. GI team will follow the patient Case an action plan discussed with Dr. Aiyana Saldana. Complex care planning needed total 49 minutes of detailed discussion. Plan discussed with: Patient Dietary Evaluation Review Recommendations by RD: Increase Calorie Intake, Protein Supplementation Comments: 1) Ensure Enlive 240ml QID (ordered per ONS protocol) 2) Jose A 1 pk BID (ordered per ONS protocol) 3) Continue current POC Expected Outcomes/Goals: wound healing to improve to meet 75% estimated energy & protein needs fu 3-5 days Interpretation of weight loss: >10% in 6 months Fluid Accumulation (Non Severe: Mild fluid retention Protein Calorie Malnutrition: Severe Is there a minimum of two crit: Yes CC Plasma Assessment Blood Product Administration S: 15:10 BUD ROY RESIDENT February 10, 2025 10:02
--- NOTE | 2025-02-10 15:12 | DVHPNRES ---
Progress Note Date Seen: February 10, 2025 Resident Creating Document: BILLY MORENO RESIDENT Has the PT tested + for MRSA If YES, has PT been informed?: No Medical Necessity Reason Pt with a Central, PICC or Fol: No The following are medically ne: Aviles Catheter Subjective Review of Systems This is a 64-year-old cachectic male with PMH of HTN, PAD, BPH, vasculopathy, Bjit-ew-hspvrhmo stenosis of the juxtarenal abdominal aorta. Uydd-lj-ariysrvw stenosis of the superior mesenteric. 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 Zbhn-ft-caijisoy stenosis of the left renal artery. 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 and recent bilateral lower extremity stent placement presents to ED with chief complaint of generalized weakness since he left rehab center three days ago. He had his blood drawn at the rehab center for which has showed hemoglobin of 5.9. The patient was instructed to go to the nearest ER for blood transfusion. He denied bloody stool and hematemesis. He denies taking anticoagulant. The patient reports heavy alcohol abuse quit four months ago. The patient hemoglobin found to be 5.4 with lactic acid 4.3. UDS negative, serum alcohol< 3.0. . Upon evaluating patient in ER bed 12, notable foul odor noted to his right foot with dressing in place. The dressing was saturated removed and multiple open sores with pus were present. The patient states that his right leg wound has been dressed two days ago and currently under treatment without being prescribed any antibiotics. The patient is currently receiving packed red blood cell transfusion. The patient is concerned about his symptoms and would like to be further evaluated and treated. The patient will be admitted under hospitalist care to the telemetry unit for continuous monitoring. The patient denies fever, chills, headache, dizziness, palpitation, chest pain, nausea, vomiting, abdominal pain, diarrhea, constipation and other associated symptoms. The plan has been discussed with the patient in which all questions concerns have been addressed. Initial lab workup revealed leukocytosis with WBC 17.4, severe anemia with a hemoglobin 5.4. UDS negative, serum alcohol< 3.0. CXR-No pulmonary airspace consolidation. Ultrasound of the abdomen revealed- Atrophic right kidney. Distended bladder with debris. Gallbladder sludge.Bladder volume measures 1848 cc. Doppler study of the lower extremity negative for DVT. Arterial Doppler of the lower extremity revealed no flow seen in the right distal superficial femoral artery, right anterior tibial and dorsalis pedis artery. CT abdomen and pelvis revealed moderate ascites, cirrhotic liver. Colonic diverticulosis, small bilateral pleural effusion with overlying compressive atelectasis. CT head negative for acute intracranial abnormality. CT abdomen and pelvis revealed moderate ascites, cirrhotic liver. Colonic diverticulosis, small bilateral pleural effusion with overlying compressive atelectasis. CT angio with run off revealed- Advanced atherosclerotic disease. Wamm-ez-nxsmyubl stenosis of the infrarenal abdominal aorta partially imaged. High-grade stenosis or focal occlusion of the proximal right common iliac artery. Occluded right superficial femoral and popliteal arteries. 2-vessel runoff to the right foot via the anterior tibial and peroneal arteries. Moderate high-grade stenosis of the left common iliac artery. Occluded distal left superficial femoral artery and popliteal arteries. Ascites. PMH-HTN, PAD, BPH, Agzb-yo-ogcvhqes stenosis of the juxtarenal abdominal aorta. Mocg-xw-jppxufpb stenosis of the superior mesenteric. 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 Ylrn-dk-gyorvqfn stenosis of the left renal artery. High- grade stenosis or occlusion of the proximal right common iliac artery. PSH- status post bilateral lower extremity stent Allergy- Personal History/ Social History- history of alcoholism but exacerbation patient did not drink alcohol last couple of months when he was in rehab. Patient was seen today at the bedside. Patient Cardiovascular- deny acute chest pain or shortness of breath or cough or palpitation Respiratory denies cough or short of breath or wheezing Gastrointestinal- denies any rectal bleeding, nausea or vomiting Musculoskeletal-denies acute joint swelling or tenderness or redness Neurological- denies acute dysarthria, dysphagia, change in vision Psychiatry- denies depression or SI or HI Skin- denies acute rash or purpura Patient was seen today for clinical evaluation. Labs and chart reviewed. Patient is status post above-knee amputation day 1, we will continue IV iron supplement daily total for 5 days. Vitals and hemoglobin is stable. Objective vital signs Vital Sign Date Time Temp Pulse Resp B/P (MAP) Pulse Ox O2 Delivery O2 Flow Rate FiO2 02/10/25 13:30 97.4 95 18 102/56 (71) 93 97.4 02/09/25 20:00 Nasal Cannula* 2 28 Total Intake and Output 02/09/25 02/09/25 02/10/25 15:00 23:00 07:00 Intake Total 300 ml 1360 ml 1250 ml Output Total 500 ml 1100 ml Balance 300 ml 860 ml 150 ml medications Current Medications Medications Dose Ordered Sig/Omar Route Start Time Stop Time Status Last Admin Dose Admin Ascorbic Acid 500 mg BID PO 01/28/25 22:00 02/10/25 09:49 500 MG Acetaminophen 650 mg Q6HP PRN PO 01/28/25 19:00 02/08/25 07:57 650 MG Nitroglycerin 0.4 mg Q5MINP PRN SL 01/28/25 19:00 Atorvastatin Calcium 80 mg HS PO 01/28/25 22:00 02/09/25 21:52 80 MG Cilostazol 100 mg BID PO 01/28/25 22:00 02/10/25 09:53 100 MG Minoxidil 5 mg DAILY PO 01/29/25 10:00 02/09/25 11:54 5 MG Nicotine 1 patch DAILY TD 01/29/25 10:00 02/10/25 09:51 1 PATCH Tamsulosin HCl 0.4 mg DAILY PO 01/29/25 10:00 Hold 01/31/25 10:53 0.4 MG Haloperidol Lactate 5 mg Q8HP PRN IM 01/29/25 17:00 01/30/25 22:01 5 MG Folic Acid 1 mg/ Dextrose 50.2 ml @ 200.8 mls/ hr DAILY INJ 01/31/25 10:00 UNV Folic Acid 1 mg DAILY PO 01/31/25 10:00 02/10/25 09:47 1 MG Multivitamins/ Minerals 1 tab DAILY PO 02/01/25 10:00 02/10/25 09:46 1 TAB Enteral Nutritional Formula 240 ml TID PO 02/02/25 14:00 02/10/25 06:00 240 ML Thiamine HCl 250 mg DAILY IV 02/03/25 10:00 02/08/25 09:59 UNV Metoprolol Tartrate 12.5 mg BID PO 02/02/25 22:00 02/10/25 09:54 12.5 MG Pantoprazole Sodium 40 mg BID IV 02/02/25 22:00 02/10/25 09:46 40 MG Sucralfate 1 gm QIDACHS PO 02/02/25 22:00 02/10/25 09:48 1 GM Lactulose 30 ml BID PO 02/03/25 10:45 02/10/25 09:42 30 ML Furosemide 20 mg DAILY PO 02/04/25 10:00 02/10/25 09:53 20 MG Spironolactone 25 mg DAILY PO 02/04/25 10:00 02/10/25 09:49 25 MG Acetaminophen/ Hydrocodone Bitart 1 tab Q4HPRN PRN PO 02/06/25 22:45 02/10/25 10:12 1 TAB Cyanocobalamin 1,000 mcg DAILY PO 02/10/25 10:00 02/14/25 09:59 02/10/25 09:48 1,000 MCG Thiamine HCl 100 mg DAILY PO 02/10/25 10:00 02/10/25 09:48 100 MG Morphine Sulfate 2 mg Q6HPRN PRN IV 02/09/25 14:30 02/09/25 22:33 2 MG Melatonin 5 mg HS PRN PO 02/09/25 14:30 Vancomycin HCl 0 ml @ 0 mls/hr UD IV 02/09/25 18:15 Vancomycin HCl 250 ml @ 200 mls/hr Q12H IV 02/09/25 20:00 02/10/25 10:33 200 MLS/HR Iron Sucrose 110 ml @ 110 mls/hr DAILY@1200 IV 02/11/25 12:00 02/14/25 12:59 Examination General examination- patient is awake , alert HEENT- PEERLA, no acute nasal discharge Cardiovascular- S1-S2 audible, rate and rhythm regular, no murmur Respiratory- CTAB, no wheeze or rhonchi Gastrointestinal-nontender, bowel sound+. Nondistended Musculoskeletal-no acute joint swelling or tenderness or redness Lower extremity- status post right above-knee amputation Neurological- cranial nerves intact, no acute dysarthria or dysphagia Psychiatry- denies depression or SI or HI Skin- right foot ulcer with a black eschar on the medial and inferior surface of the foot, with redness and skin excoriation of the rest of the foot laboratory and microbiology Laboratory Tests 02/10/25 05:01 Test 02/10/25 05:01 Range/Units Serum Glucose 155 H 74-106 mg/dL Microbiology Date/Time Source Procedure Growth Status 02/03/25 08:40 Blood Blood Culture - Final NO GROWTH AFTER 5 DAYS OF INCUBATION. Complete 01/30/25 18:49 Foot Right Gram Stain - Final Complete 01/30/25 18:49 Wound Culture - Final Pseudomonas aeruginosa Stenotrophomonas maltophilia Enterococcus faecalis Methicillin Resistant S.aureus Complete 01/30/25 11:20 Voided Urine Urine Culture - Final Complete Problem List/Assessment/Plan Problem List/Assessment/Plan Assessment and plan--Patient had Aortogram with right lower extremity arteriogram right common iliac artery angioplasty, status post stent placement. As per Dr. Cali patient is scheduled for right above-knee amputation tomorrow. Patient was also seen by wash house worker day before yesterday, recommendation reviewed and appreciated. Gastroenterology recommended for outpatient colonoscopy once patient was recommended from his current illness. Sepsis likely due to right foot cellulitis Status post right above-knee amputation Right foot cellulitis with a blackish escare Necrotizing soft tissue infection of the right foot Right foot abscess Right foot wet gangrene Right foot osteomyelitis Severe anemia, S/P BT - pRBC Likely GI bleeding. FOBT Positive Acute retention of urine likely due to BPH Metabolic encephalopathy/toxic encephalopathy Suspected Wernicke's encephalopathy Hepatitis-C positive Cirrhosis of liver Peripheral arterial disease A-Fib/AV roslyn reentry tachycardia/paroxysmal SVT Severe vasculopathy BPH Constipation Hyperlipidemia Hypertension Ruled out UTI CT angio with run off revealed- Advanced atherosclerotic disease. Pbuh-oc-[id number] stenosis of the infrarenal abdominal aorta partially imaged. High-grade stenosis or focal occlusion of the proximal right common iliac artery. Occluded right superficial femoral and popliteal arteries. 2-vessel runoff to the right foot via the anterior tibial and peroneal arteries. Moderate high-grade stenosis of the left common iliac artery. Occluded distal left superficial femoral artery and popliteal arteries. Ascites. Patient had Aortogram with right lower extremity arteriogram right common iliac artery angioplasty, status post stent placement. On 02/05/2025- GI- endoscopy, had a 1-2 cm sliding-type hiatal hernia with grade A erosive esophagitis with mild gastroduodenitis with superficial pre- pyloric and duodenal erosions. Plan Blood culture negative Wound culture revealed E coli, MRSA, Pseudomonas aeruginosa, Providencia stuartii. CT abdomen and pelvis revealed moderate ascites, cirrhotic liver. Colonic diverticulosis, small bilateral pleural effusion with overlying compressive atelectasis On 02/02/2025-x-ray of [facility]-nonobstructive gas pattern 02/03/2024 CT angio with run off revealed- Advanced atherosclerotic disease. Esqv-ks-wlhntjpe stenosis of the infrarenal abdominal aorta partially imaged. High-grade stenosis or focal occlusion of the proximal right common iliac artery. Occluded right superficial femoral and popliteal arteries. 2-vessel runoff to the right foot via the anterior tibial and peroneal arteries. Moderate high-grade stenosis of the left common iliac artery. Occluded distal left superficial femoral artery and popliteal arteries. Ascites. Continue cefepime and vancomycin as prescribed Continue pain medication as prescribed Pantoprazole as prescribed Tamsulosin 0.4 mg p.o. daily Cilostazol 100 mg p.o. b.i.d. Atorvastatin 80 mg p.o. HS Aspirin 81 mg p.o. daily Metoprolol tartrate 12.5 mg p.o. b.i.d. Continue thiamine as prescribed Continue folic acid as prescribed spironolactone 25 mg q.d., Lasix 20 mg p.o. daily. As per Dr. Cali patient is scheduled for right above-knee amputation tomorrow. Goals of care, Code status ; discussed with >15 minutes PUD prophylaxis: Pantoprazole DVT prophylaxis: SCD Plan discussed with Dr. Cotton , nursing staff, Total time spent on patient evaluation, chart review, assessment and plan, discussion discussion >35 minutes Plan discussed with: Patient, Daughter (RN), Other My Orders My Orders Orders - BILLY MORENO Procedure Category Date Status Time Iron Sucrose Complex PHA 02/11/25 In Process (Venofer) 12:00 Dietary Evaluation Review Recommendations by RD: Increase Calorie Intake, Protein Supplementation Comments: 1) Ensure Enlive 240ml QID (ordered per ONS protocol) 2) Jose A 1 pk BID (ordered per ONS protocol) 3) Continue current POC Expected Outcomes/Goals: wound healing to improve to meet 75% estimated energy & protein needs fu 3-5 days Interpretation of weight loss: >10% in 6 months Fluid Accumulation (Non Severe: Mild fluid retention Protein Calorie Malnutrition: Severe Is there a minimum of two crit: Yes CC Plasma Assessment Blood Product Administration S: 15:10 Date of Service: February 10, 2025 Billing Provider: DOLORES KAT MD Common Visit Codes: [id number] INP/OBS CARE(HIGH) BILLY MORENO February 10, 2025 15:12 DOLORES KAT MD February 11, 2025 20:49
--- NOTE | 2025-02-10 19:04 | DVHPN2 ---
Progress Note - Dictate Date Seen: February 10, 2025 Has the PT tested + for MRSA If YES, has PT been informed?: No Medical Necessity Reason Pt with a Central, PICC or Fol: No The following are medically ne: Aviles Catheter Subjective Patient was seen and evaluated in follow up. Patient is on 2 LPM NC. Patient reports improvement in his symptoms since admission. He denies any new complaints. Patient is tolerating diet. HGB 7.7, HCT 23.1, CA 7.9, AST 52, ALT 42. Telemetry reviewed. vital signs Vital Sign Date Time Temp Pulse Resp B/P (MAP) Pulse Ox O2 Delivery O2 Flow Rate FiO2 02/10/25 10:00 101/55 02/10/25 09:54 71 02/10/25 09:30 97.9 14 94 97.9 02/09/25 20:00 Nasal Cannula* 2 28 Total Intake and Output 02/09/25 02/09/25 02/10/25 15:00 23:00 07:00 Intake Total 300 ml 1360 ml 1250 ml Output Total 500 ml 1100 ml Balance 300 ml 860 ml 150 ml medications Current Medications Medications Dose Ordered Sig/Omar Route Start Time Stop Time Status Last Admin Dose Admin Ascorbic Acid 500 mg BID PO 01/28/25 22:00 02/10/25 09:49 500 MG Acetaminophen 650 mg Q6HP PRN PO 01/28/25 19:00 02/08/25 07:57 650 MG Nitroglycerin 0.4 mg Q5MINP PRN SL 01/28/25 19:00 Atorvastatin Calcium 80 mg HS PO 01/28/25 22:00 02/09/25 21:52 80 MG Cilostazol 100 mg BID PO 01/28/25 22:00 02/10/25 09:53 100 MG Minoxidil 5 mg DAILY PO 01/29/25 10:00 02/09/25 11:54 5 MG Nicotine 1 patch DAILY TD 01/29/25 10:00 02/10/25 09:51 1 PATCH Tamsulosin HCl 0.4 mg DAILY PO 01/29/25 10:00 Hold 01/31/25 10:53 0.4 MG Haloperidol Lactate 5 mg Q8HP PRN IM 01/29/25 17:00 01/30/25 22:01 5 MG Folic Acid 1 mg/ Dextrose 50.2 ml @ 200.8 mls/ hr DAILY INJ 01/31/25 10:00 UNV Folic Acid 1 mg DAILY PO 01/31/25 10:00 02/10/25 09:47 1 MG Multivitamins/ Minerals 1 tab DAILY PO 02/01/25 10:00 02/10/25 09:46 1 TAB Enteral Nutritional Formula 240 ml TID PO 02/02/25 14:00 02/10/25 06:00 240 ML Thiamine HCl 250 mg DAILY IV 02/03/25 10:00 02/08/25 09:59 UNV Metoprolol Tartrate 12.5 mg BID PO 02/02/25 22:00 02/10/25 09:54 12.5 MG Pantoprazole Sodium 40 mg BID IV 02/02/25 22:00 02/10/25 09:46 40 MG Sucralfate 1 gm QIDACHS PO 02/02/25 22:00 02/10/25 09:48 1 GM Lactulose 30 ml BID PO 02/03/25 10:45 02/10/25 09:42 30 ML Furosemide 20 mg DAILY PO 02/04/25 10:00 02/10/25 09:53 20 MG Spironolactone 25 mg DAILY PO 02/04/25 10:00 02/10/25 09:49 25 MG Acetaminophen/ Hydrocodone Bitart 1 tab Q4HPRN PRN PO 02/06/25 22:45 02/10/25 10:12 1 TAB Cyanocobalamin 1,000 mcg DAILY PO 02/10/25 10:00 02/14/25 09:59 02/10/25 09:48 1,000 MCG Thiamine HCl 100 mg DAILY PO 02/10/25 10:00 02/10/25 09:48 100 MG Morphine Sulfate 2 mg Q6HPRN PRN IV 02/09/25 14:30 02/09/25 22:33 2 MG Melatonin 5 mg HS PRN PO 02/09/25 14:30 Vancomycin HCl 0 ml @ 0 mls/hr UD IV 02/09/25 18:15 Vancomycin HCl 250 ml @ 200 mls/hr Q12H IV 02/09/25 20:00 02/10/25 10:33 200 MLS/HR objective GENERAL: Alert and oriented x 3. No acute distress. EYES: PERRL, EOMI. Anicteric. HENT: Moist mucous membranes. LUNGS: Clear to auscultation bilaterally. CARDIOVASCULAR: Regular rate and rhythm. ABDOMEN: Soft, nontender and nondistended. EXTREMITIES: No edema. NEUROLOGIC: No focal neurological deficits. SKIN: Warm, dry. laboratory and microbiology Laboratory Tests 02/10/25 05:01 Test 02/10/25 05:01 Range/Units Serum Glucose 155 H 74-106 mg/dL Problem List Atrioventricular roslyn reentry tachycardia. Questionable atrial fibrillation. Nonsustained ventricular tachycardia. Peripheral arterial disease status post bilateral lower extremity stents. Rule out structural heart disease. Hypertension. Hyperlipidemia. Severe anemia requiring PRBC transfusion. GI bleed with positive Hemoccult. Hypokalemia. Sepsis. Right foot osteomyelitis. Necrotizing wound to right foot. Assessment/Plan Continued all current supportive medical care. Morphine and [place] for pain management. Lipitor, Metoprolol. IV antibiotics as ordered. Diuretics with Lasix. GI prophylactics. Nitro SL. Additional plan as per the hospital course. Dietary Evaluation Review Recommendations by RD: Increase Calorie Intake, Protein Supplementation Comments: 1) Ensure Enlive 240ml QID (ordered per ONS protocol) 2) Jose A 1 pk BID (ordered per ONS protocol) 3) Continue current POC Expected Outcomes/Goals: wound healing to improve to meet 75% estimated energy & protein needs fu 3-5 days Interpretation of weight loss: >10% in 6 months Fluid Accumulation (Non Severe: Mild fluid retention Protein Calorie Malnutrition: Severe Is there a minimum of two crit: Yes Plan discussed with: Patient CC Plasma Assessment Blood Product Administration S: 15:10 DEWAYNE SAMANO MD February 10, 2025 12:04
[2025-02-10] MEDS: MELATONIN 5 MG TAB PO PRN (23:25)
[2025-02-11] VITALS (8 sets, daily range): BP systolic 99–158; BP diastolic 51–68; PULSE 79–106; RESP 18–19; TEMP 97.7–98.3; O2SAT 91–96
[2025-02-11] MEDS: VANCOMYCIN 1GM/200ML PM 200 ML IV SCH (10:03)
--- NOTE | 2025-02-11 11:55 | DVHPNRES ---
Progress Note Date Seen: February 11, 2025 Resident Creating Document: COY JIMENEZ YAAKOV Has the PT tested + for MRSA If YES, has PT been informed?: No Medical Necessity Reason Pt with a Central, PICC or Fol: No The following are medically ne: Aviles Catheter Subjective Review of Systems Patient seen examined at bedside. Patient is still complaining of lower limb pain. Patient reports: No new complaints, Feels better Changes from previous H/P or p: Changes Objective vital signs Vital Sign Date Time Temp Pulse Resp B/P (MAP) Pulse Ox O2 Delivery O2 Flow Rate FiO2 02/11/25 09:54 118/51 02/11/25 09:48 96 02/11/25 09:00 98.1 18 91 98.1 02/11/25 08:00 Nasal Cannula* 2 28 Total Intake and Output 02/10/25 02/10/25 02/11/25 15:00 23:00 07:00 Intake Total 1500 ml 700 ml Output Total 850 ml 1700 ml Balance 650 ml -1000 ml medications Current Medications Medications Dose Ordered Sig/Omar Route Start Time Stop Time Status Last Admin Dose Admin Ascorbic Acid 500 mg BID PO 01/28/25 22:00 02/11/25 09:48 500 MG Acetaminophen 650 mg Q6HP PRN PO 01/28/25 19:00 02/08/25 07:57 650 MG Nitroglycerin 0.4 mg Q5MINP PRN SL 01/28/25 19:00 Atorvastatin Calcium 80 mg HS PO 01/28/25 22:00 02/10/25 23:25 80 MG Cilostazol 100 mg BID PO 01/28/25 22:00 02/11/25 09:48 100 MG Minoxidil 5 mg DAILY PO 01/29/25 10:00 02/11/25 09:49 5 MG Nicotine 1 patch DAILY TD 01/29/25 10:00 02/11/25 09:52 1 PATCH Tamsulosin HCl 0.4 mg DAILY PO 01/29/25 10:00 Hold 01/31/25 10:53 0.4 MG Haloperidol Lactate 5 mg Q8HP PRN IM 01/29/25 17:00 01/30/25 22:01 5 MG Folic Acid 1 mg/ Dextrose 50.2 ml @ 200.8 mls/ hr DAILY INJ 01/31/25 10:00 UNV Folic Acid 1 mg DAILY PO 01/31/25 10:00 02/11/25 09:48 1 MG Multivitamins/ Minerals 1 tab DAILY PO 02/01/25 10:00 02/11/25 09:46 1 TAB Enteral Nutritional Formula 240 ml TID PO 02/02/25 14:00 02/11/25 06:00 240 ML Thiamine HCl 250 mg DAILY IV 02/03/25 10:00 02/08/25 09:59 UNV Metoprolol Tartrate 12.5 mg BID PO 02/02/25 22:00 02/11/25 09:48 12.5 MG Pantoprazole Sodium 40 mg BID IV 02/02/25 22:00 02/11/25 09:49 40 MG Sucralfate 1 gm QIDACHS PO 02/02/25 22:00 02/11/25 06:08 1 GM Lactulose 30 ml BID PO 02/03/25 10:45 02/11/25 09:49 30 ML Furosemide 20 mg DAILY PO 02/04/25 10:00 02/11/25 09:54 20 MG Spironolactone 25 mg DAILY PO 02/04/25 10:00 02/11/25 09:49 25 MG Acetaminophen/ Hydrocodone Bitart 1 tab Q4HPRN PRN PO 02/06/25 22:45 02/11/25 09:46 1 TAB Cyanocobalamin 1,000 mcg DAILY PO 02/10/25 10:00 02/14/25 09:59 02/11/25 09:46 1,000 MCG Thiamine HCl 100 mg DAILY PO 02/10/25 10:00 02/11/25 09:48 100 MG Morphine Sulfate 2 mg Q6HPRN PRN IV 02/09/25 14:30 02/10/25 23:41 2 MG Melatonin 5 mg HS PRN PO 02/09/25 14:30 02/10/25 23:25 5 MG Vancomycin HCl 0 ml @ 0 mls/hr UD IV 02/09/25 18:15 Iron Sucrose 110 ml @ 110 mls/hr DAILY@1200 IV 02/11/25 12:00 02/13/25 12:59 Vancomycin HCl 200 ml @ 200 mls/hr Q12H IV 02/11/25 10:00 02/11/25 10:03 200 MLS/HR Examination General examination- patient is awake , alert HEENT- PEERLA, no acute nasal discharge Cardiovascular- S1-S2 audible, rate and rhythm regular, no murmur Respiratory- CTAB, no wheeze or rhonchi Gastrointestinal-nontender, bowel sound+. Nondistended Musculoskeletal-no acute joint swelling or tenderness or redness Lower extremity- status post right above-knee amputation Neurological- cranial nerves intact, no acute dysarthria or dysphagia Psychiatry- denies depression or SI or HI Skin- right foot ulcer with a black eschar on the medial and inferior surface of the foot, with redness and skin excoriation of the rest of the foot laboratory and microbiology Laboratory Tests 02/10/25 05:01 Test 02/10/25 05:01 Range/Units Serum Glucose 155 H 74-106 mg/dL Microbiology Date/Time Source Procedure Growth Status 02/03/25 08:40 Blood Blood Culture - Final NO GROWTH AFTER 5 DAYS OF INCUBATION. Complete 01/30/25 18:49 Foot Right Gram Stain - Final Complete 01/30/25 18:49 Wound Culture - Final Pseudomonas aeruginosa Stenotrophomonas maltophilia Enterococcus faecalis Methicillin Resistant S.aureus Complete 01/30/25 11:20 Voided Urine Urine Culture - Final Complete Labs and/or images reviewed: Labs reviewed by me, Image(s) reviewed by me Problem List/Assessment/Plan Problem List/Assessment/Plan Assessment and plan--Patient had Aortogram with right lower extremity arteriogram right common iliac artery angioplasty, status post stent placement. As per Dr. Cali patient is scheduled for right above-knee amputation tomorrow. Patient was also seen by sonar watchstander day before yesterday, recommendation reviewed and appreciated. Gastroenterology recommended for outpatient colonoscopy once patient was recommended from his current illness. Sepsis likely due to right foot cellulitis Status post right above-knee amputation Right foot cellulitis with a blackish escare Necrotizing soft tissue infection of the right foot Right foot abscess Right foot wet gangrene Right foot osteomyelitis Severe anemia, S/P BT - pRBC Likely GI bleeding. FOBT Positive Acute retention of urine likely due to BPH Metabolic encephalopathy/toxic encephalopathy Suspected Wernicke's encephalopathy Hepatitis-C positive Cirrhosis of liver Peripheral arterial disease A-Fib/AV roslyn reentry tachycardia/paroxysmal SVT Severe vasculopathy BPH Constipation Hyperlipidemia Hypertension Ruled out UTI CT angio with run off revealed- Advanced atherosclerotic disease. [id number] stenosis of the infrarenal abdominal aorta partially imaged. High-grade stenosis or focal occlusion of the proximal right common iliac artery. Occluded right superficial femoral and popliteal arteries. 2-vessel runoff to the right foot via the anterior tibial and peroneal arteries. Moderate high-grade stenosis of the left common iliac artery. Occluded distal left superficial femoral artery and popliteal arteries. Ascites. Patient had Aortogram with right lower extremity arteriogram right common iliac artery angioplasty, status post stent placement. On 02/05/2025- GI- endoscopy, had a 1-2 cm sliding-type hiatal hernia with grade A erosive esophagitis with mild gastroduodenitis with superficial pre- pyloric and duodenal erosions. Plan Blood culture negative Wound culture revealed E coli, MRSA, Pseudomonas aeruginosa, Providencia stuartii. CT abdomen and pelvis revealed moderate ascites, cirrhotic liver. Colonic diverticulosis, small bilateral pleural effusion with overlying compressive atelectasis On 02/02/2025-x-ray of [facility]-nonobstructive gas pattern 02/03/2024 CT angio with run off revealed- Advanced atherosclerotic disease. [id number] stenosis of the infrarenal abdominal aorta partially imaged. High-grade stenosis or focal occlusion of the proximal right common iliac artery. Occluded right superficial femoral and popliteal arteries. 2-vessel runoff to the right foot via the anterior tibial and peroneal arteries. Moderate high-grade stenosis of the left common iliac artery. Occluded distal left superficial femoral artery and popliteal arteries. Ascites. Continue cefepime and vancomycin as prescribed Continue pain medication as prescribed Pantoprazole as prescribed Tamsulosin 0.4 mg p.o. daily Cilostazol 100 mg p.o. b.i.d. Atorvastatin 80 mg p.o. HS Aspirin 81 mg p.o. daily Metoprolol tartrate 12.5 mg p.o. b.i.d. Continue thiamine as prescribed Continue folic acid as prescribed spironolactone 25 mg q.d., Lasix 20 mg p.o. daily. As per Dr. Cali patient is scheduled for right above-knee amputation tomorrow. Goals of care, Code status ; discussed with >15 minutes PUD prophylaxis: Pantoprazole DVT prophylaxis: SCD Patient is status post right side above-knee amputation. Patient is stable but complained of mild right lower limb mild pain Plan discussed with Dr. Rodríguez , nursing staff, Plan discussed with: Patient, Other (RN) Dietary Evaluation Review Recommendations by RD: Increase Calorie Intake, Protein Supplementation Comments: 1) Ensure Enlive 240ml QID (ordered per ONS protocol) 2) Jose A 1 pk BID (ordered per ONS protocol) 3) Continue current POC Expected Outcomes/Goals: wound healing to improve to meet 75% estimated energy & protein needs fu 3-5 days Interpretation of weight loss: >10% in 6 months Fluid Accumulation (Non Severe: Mild fluid retention Protein Calorie Malnutrition: Severe Is there a minimum of two crit: Yes CC Plasma Assessment Blood Product Administration S: 15:10 Date of Service: February 11, 2025 Billing Provider: SARAH RODRÍGUEZ DO Common Visit Codes: 27563-[id number] INP/OBS CARE(HIGH) COY JIMENEZ RESDIENT February 11, 2025 11:55 SARAH RODRÍGUEZ DO February 13, 2025 16:33
[2025-02-11] MEDS ORDERED: IRON SUCROSE COMPLEX 110 ML IV SCH (12:00)
[2025-02-11] MEDS: IRON SUCROSE COMPLEX 110 ML IV SCH (13:04)
--- NOTE | 2025-02-11 15:21 | DVHPN2 ---
Progress Note - Dictate Date Seen: February 11, 2025 Has the PT tested + for MRSA If YES, has PT been informed?: No Medical Necessity Reason Pt with a Central, PICC or Fol: No The following are medically ne: Aviles Catheter Subjective Patient was seen and evaluated in follow up. Patient is on 2 LPM NC. Patient is still complaining of lower limb pain. He states it is uncomfortable for him to lay on his side. Telemetry reviewed. vital signs Vital Sign Date Time Temp Pulse Resp B/P (MAP) Pulse Ox O2 Delivery O2 Flow Rate FiO2 02/11/25 09:54 118/51 02/11/25 09:48 96 02/11/25 09:00 98.1 18 91 98.1 02/11/25 08:00 Nasal Cannula* 2 28 Total Intake and Output 02/10/25 02/10/25 02/11/25 15:00 23:00 07:00 Intake Total 1500 ml 700 ml Output Total 850 ml 1700 ml Balance 650 ml -1000 ml medications Current Medications Medications Dose Ordered Sig/Omar Route Start Time Stop Time Status Last Admin Dose Admin Ascorbic Acid 500 mg BID PO 01/28/25 22:00 02/11/25 09:48 500 MG Acetaminophen 650 mg Q6HP PRN PO 01/28/25 19:00 02/08/25 07:57 650 MG Nitroglycerin 0.4 mg Q5MINP PRN SL 01/28/25 19:00 Atorvastatin Calcium 80 mg HS PO 01/28/25 22:00 02/10/25 23:25 80 MG Cilostazol 100 mg BID PO 01/28/25 22:00 02/11/25 09:48 100 MG Minoxidil 5 mg DAILY PO 01/29/25 10:00 02/11/25 09:49 5 MG Nicotine 1 patch DAILY TD 01/29/25 10:00 02/11/25 09:52 1 PATCH Tamsulosin HCl 0.4 mg DAILY PO 01/29/25 10:00 Hold 01/31/25 10:53 0.4 MG Haloperidol Lactate 5 mg Q8HP PRN IM 01/29/25 17:00 01/30/25 22:01 5 MG Folic Acid 1 mg/ Dextrose 50.2 ml @ 200.8 mls/ hr DAILY INJ 01/31/25 10:00 UNV Folic Acid 1 mg DAILY PO 01/31/25 10:00 02/11/25 09:48 1 MG Multivitamins/ Minerals 1 tab DAILY PO 02/01/25 10:00 02/11/25 09:46 1 TAB Enteral Nutritional Formula 240 ml TID PO 02/02/25 14:00 02/11/25 06:00 240 ML Thiamine HCl 250 mg DAILY IV 02/03/25 10:00 02/08/25 09:59 UNV Metoprolol Tartrate 12.5 mg BID PO 02/02/25 22:00 02/11/25 09:48 12.5 MG Pantoprazole Sodium 40 mg BID IV 02/02/25 22:00 02/11/25 09:49 40 MG Sucralfate 1 gm QIDACHS PO 02/02/25 22:00 02/11/25 06:08 1 GM Lactulose 30 ml BID PO 02/03/25 10:45 02/11/25 09:49 30 ML Furosemide 20 mg DAILY PO 02/04/25 10:00 02/11/25 09:54 20 MG Spironolactone 25 mg DAILY PO 02/04/25 10:00 02/11/25 09:49 25 MG Acetaminophen/ Hydrocodone Bitart 1 tab Q4HPRN PRN PO 02/06/25 22:45 02/11/25 09:46 1 TAB Cyanocobalamin 1,000 mcg DAILY PO 02/10/25 10:00 02/14/25 09:59 02/11/25 09:46 1,000 MCG Thiamine HCl 100 mg DAILY PO 02/10/25 10:00 02/11/25 09:48 100 MG Morphine Sulfate 2 mg Q6HPRN PRN IV 02/09/25 14:30 02/10/25 23:41 2 MG Melatonin 5 mg HS PRN PO 02/09/25 14:30 02/10/25 23:25 5 MG Vancomycin HCl 0 ml @ 0 mls/hr UD IV 02/09/25 18:15 Iron Sucrose 110 ml @ 110 mls/hr DAILY@1200 IV 02/11/25 12:00 02/13/25 12:59 Vancomycin HCl 200 ml @ 200 mls/hr Q12H IV 02/11/25 10:00 02/11/25 10:03 200 MLS/HR objective GENERAL: Alert and oriented x 3. No acute distress. EYES: PERRL, EOMI. Anicteric. HENT: Moist mucous membranes. LUNGS: Clear to auscultation bilaterally. CARDIOVASCULAR: Regular rate and rhythm. ABDOMEN: Soft, nontender and nondistended. EXTREMITIES: No edema. NEUROLOGIC: No focal neurological deficits. SKIN: Warm, dry. laboratory and microbiology Laboratory Tests 02/10/25 05:01 Test 02/10/25 05:01 Range/Units Serum Glucose 155 H 74-106 mg/dL Problem List Atrioventricular roslyn reentry tachycardia. Questionable atrial fibrillation. Nonsustained ventricular tachycardia. Peripheral arterial disease status post bilateral lower extremity stents. Rule out structural heart disease. Hypertension. Hyperlipidemia. Severe anemia requiring PRBC transfusion. GI bleed with positive Hemoccult. Hypokalemia. Sepsis. Right foot osteomyelitis. Necrotizing wound to right foot. Assessment/Plan Continued all current supportive medical care. Morphine and [place] for pain management. Lipitor, Metoprolol. IV antibiotics as ordered. Diuretics with Lasix. GI prophylactics. Nitro SL. Additional plan as per the hospital course. Dietary Evaluation Review Recommendations by RD: Increase Calorie Intake, Protein Supplementation Comments: 1) Ensure Enlive 240ml QID (ordered per ONS protocol) 2) Jose A 1 pk BID (ordered per ONS protocol) 3) Continue current POC Expected Outcomes/Goals: wound healing to improve to meet 75% estimated energy & protein needs fu 3-5 days Interpretation of weight loss: >10% in 6 months Fluid Accumulation (Non Severe: Mild fluid retention Protein Calorie Malnutrition: Severe Is there a minimum of two crit: Yes Plan discussed with: Patient CC Plasma Assessment Blood Product Administration S: 15:10 DEWAYNE SAMANO MD February 11, 2025 11:56
[2025-02-12] VITALS (8 sets, daily range): BP systolic 96–127; BP diastolic 50–71; PULSE 85–104; RESP 17–20; TEMP 97.8–99.3; O2SAT 92–99
[2025-02-12 06:08] LABS: Basophils # (auto) 0.1 10 ^3/uL (0-0.2); Eosinophils # (auto) 0.1 10 ^3/uL (0-0.8); Lymphocytes # (auto) 1.4 10 ^3/uL (0.4-5.4); Monocytes # (auto) 0.6 10 ^3/uL (0-1.3); Red Cell Distribution Width 19.1 % (11.8-14.3)
[2025-02-12 06:12] LABS: Basophils % (auto) 0.9 % (0.0-2.0); Eosinophils % (auto) 2.4 % (0.0-7.0); Lymphocytes % (auto) 22.7 % (10.0-50.0); Mean Corpuscular Hemoglobin 26.8 pg (28.0-32.0); Mean Corpuscular Volume 83.5 fL (80.0-100.0); Monocytes % (auto) 10.3 % (0.0-12.0); Neutrophils # (auto) 3.9 10 ^3/uL (1.6-8.6); Neutrophils % (auto) 63.7 % (37.0-80.0); Nucleated Red Blood Cells % 0.3 %; Platelet Count (auto) 346 10^3/uL (140-450); Red Blood Cells 2.99 10^6/uL (4.5-5.90); White Blood Cell 6.1 10^3/uL (4.4-10.8)
[2025-02-12 06:20] LABS: Anion Gap 7 (5-15); BUN/Creatinine Ratio 24.4 (10.0-20.0); Blood Urea Nitrogen 10 mg/dL (9-23); Carbon Dioxide 29 mmol/L (20-31); Chloride 103 mmol/L (98-107); Potassium 4.4 mmol/L (3.5-5.1); Sodium 139 mmol/L (136-145); Total Protein 6.7 g/dL (5.7-8.2)
[2025-02-12 06:31] LABS: Alanine Aminotransferase 54 U/L (7-40); Albumin 2.9 g/dL (3.2-4.8); Alkaline Phosphatase 117 U/L (46-116); Aspartate Aminotransferase 58 U/L (13-40); Bilirubin, Total 0.2 mg/dL (0.2-1.0); Calcium 8.5 mg/dL (8.7-10.4); Glucose 107 mg/dL (74-106)
--- NOTE | 2025-02-12 12:53 | DVHPNRES ---
Progress Note Date Seen: February 12, 2025 Resident Creating Document: BILLY MORENO RESIDENT Has the PT tested + for MRSA If YES, has PT been informed?: No Medical Necessity Reason Pt with a Central, PICC or Fol: No The following are medically ne: Aviles Catheter Subjective Review of Systems This is a 64-year-old cachectic male with PMH of HTN, PAD, BPH, vasculopathy, Gmbm-kf-uoimmjey stenosis of the juxtarenal abdominal aorta. Shin-yu-fytfbcrf stenosis of the superior mesenteric. 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 Agxt-la-oqhgiwaq stenosis of the left renal artery. 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 and recent bilateral lower extremity stent placement presents to ED with chief complaint of generalized weakness since he left rehab center three days ago. He had his blood drawn at the rehab center for which has showed hemoglobin of 5.9. The patient was instructed to go to the nearest ER for blood transfusion. He denied bloody stool and hematemesis. He denies taking anticoagulant. The patient reports heavy alcohol abuse quit four months ago. The patient hemoglobin found to be 5.4 with lactic acid 4.3. UDS negative, serum alcohol< 3.0. . Upon evaluating patient in ER bed 12, notable foul odor noted to his right foot with dressing in place. The dressing was saturated removed and multiple open sores with pus were present. The patient states that his right leg wound has been dressed two days ago and currently under treatment without being prescribed any antibiotics. The patient is currently receiving packed red blood cell transfusion. The patient is concerned about his symptoms and would like to be further evaluated and treated. The patient will be admitted under hospitalist care to the telemetry unit for continuous monitoring. The patient denies fever, chills, headache, dizziness, palpitation, chest pain, nausea, vomiting, abdominal pain, diarrhea, constipation and other associated symptoms. The plan has been discussed with the patient in which all questions concerns have been addressed. Initial lab workup revealed leukocytosis with WBC 17.4, severe anemia with a hemoglobin 5.4. UDS negative, serum alcohol< 3.0. CXR-No pulmonary airspace consolidation. Ultrasound of the abdomen revealed- Atrophic right kidney. Distended bladder with debris. Gallbladder sludge.Bladder volume measures 1848 cc. Doppler study of the lower extremity negative for DVT. Arterial Doppler of the lower extremity revealed no flow seen in the right distal superficial femoral artery, right anterior tibial and dorsalis pedis artery. CT abdomen and pelvis revealed moderate ascites, cirrhotic liver. Colonic diverticulosis, small bilateral pleural effusion with overlying compressive atelectasis. CT head negative for acute intracranial abnormality. CT abdomen and pelvis revealed moderate ascites, cirrhotic liver. Colonic diverticulosis, small bilateral pleural effusion with overlying compressive atelectasis. CT angio with run off revealed- Advanced atherosclerotic disease. Buxb-hw-qgrxobce stenosis of the infrarenal abdominal aorta partially imaged. High-grade stenosis or focal occlusion of the proximal right common iliac artery. Occluded right superficial femoral and popliteal arteries. 2-vessel runoff to the right foot via the anterior tibial and peroneal arteries. Moderate high-grade stenosis of the left common iliac artery. Occluded distal left superficial femoral artery and popliteal arteries. Ascites. PMH-HTN, PAD, BPH, Orjk-gz-shaqkwrn stenosis of the juxtarenal abdominal aorta. Cakl-jf-tzdvncma stenosis of the superior mesenteric. 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 Qhkn-ym-dtltrcmz stenosis of the left renal artery. High- grade stenosis or occlusion of the proximal right common iliac artery. PSH- status post bilateral lower extremity stent Allergy- Personal History/ Social History- history of alcoholism but exacerbation patient did not drink alcohol last couple of months when he was in rehab. Patient was seen today at the bedside. Patient Cardiovascular- deny acute chest pain or shortness of breath or cough or palpitation Respiratory denies cough or short of breath or wheezing Gastrointestinal- denies any rectal bleeding, nausea or vomiting Musculoskeletal-denies acute joint swelling or tenderness or redness Neurological- denies acute dysarthria, dysphagia, change in vision Psychiatry- denies depression or SI or HI Skin- denies acute rash or purpura Patient was seen today for clinical evaluation. Labs and chart reviewed. Patient still anemic with a hemoglobin 8.0, transaminitis AST 58, ALT 54, alkaline phosphatase 117, patient was scheduled for left lower extremity arteriogram tomorrow morning. Objective vital signs Vital Sign Date Time Temp Pulse Resp B/P (MAP) Pulse Ox O2 Delivery O2 Flow Rate FiO2 02/12/25 10:05 116/61 02/12/25 10:05 93 02/12/25 08:59 98.1 20 96 98.1 02/11/25 20:00 Nasal Cannula* 2 28 Total Intake and Output 02/11/25 02/11/25 02/12/25 15:00 23:00 07:00 Intake Total 310 ml 1680 ml 300 ml Output Total 800 ml 350 ml Balance 310 ml 880 ml -50 ml medications Current Medications Medications Dose Ordered Sig/Omar Route Start Time Stop Time Status Last Admin Dose Admin Ascorbic Acid 500 mg BID PO 01/28/25 22:00 02/12/25 10:04 500 MG Acetaminophen 650 mg Q6HP PRN PO 01/28/25 19:00 02/08/25 07:57 650 MG Nitroglycerin 0.4 mg Q5MINP PRN SL 01/28/25 19:00 Atorvastatin Calcium 80 mg HS PO 01/28/25 22:00 02/11/25 21:28 80 MG Cilostazol 100 mg BID PO 01/28/25 22:00 02/12/25 10:03 100 MG Minoxidil 5 mg DAILY PO 01/29/25 10:00 02/12/25 10:03 5 MG Nicotine 1 patch DAILY TD 01/29/25 10:00 02/12/25 10:07 1 PATCH Tamsulosin HCl 0.4 mg DAILY PO 01/29/25 10:00 Hold 01/31/25 10:53 0.4 MG Haloperidol Lactate 5 mg Q8HP PRN IM 01/29/25 17:00 01/30/25 22:01 5 MG Folic Acid 1 mg/ Dextrose 50.2 ml @ 200.8 mls/ hr DAILY INJ 01/31/25 10:00 UNV Folic Acid 1 mg DAILY PO 01/31/25 10:00 02/12/25 10:04 1 MG Multivitamins/ Minerals 1 tab DAILY PO 02/01/25 10:00 02/12/25 10:04 1 TAB Enteral Nutritional Formula 240 ml TID PO 02/02/25 14:00 02/12/25 05:56 240 ML Thiamine HCl 250 mg DAILY IV 02/03/25 10:00 02/08/25 09:59 UNV Metoprolol Tartrate 12.5 mg BID PO 02/02/25 22:00 02/12/25 10:05 12.5 MG Pantoprazole Sodium 40 mg BID IV 02/02/25 22:00 02/12/25 10:04 40 MG Sucralfate 1 gm QIDACHS PO 02/02/25 22:00 02/12/25 11:18 1 GM Lactulose 30 ml BID PO 02/03/25 10:45 02/12/25 10:04 30 ML Furosemide 20 mg DAILY PO 02/04/25 10:00 02/12/25 10:05 20 MG Spironolactone 25 mg DAILY PO 02/04/25 10:00 02/12/25 10:04 25 MG Acetaminophen/ Hydrocodone Bitart 1 tab Q4HPRN PRN PO 02/06/25 22:45 02/12/25 10:03 1 TAB Cyanocobalamin 1,000 mcg DAILY PO 02/10/25 10:00 02/14/25 09:59 02/12/25 10:03 1,000 MCG Thiamine HCl 100 mg DAILY PO 02/10/25 10:00 02/12/25 10:23 100 MG Morphine Sulfate 2 mg Q6HPRN PRN IV 02/09/25 14:30 02/10/25 23:41 2 MG Melatonin 5 mg HS PRN PO 02/09/25 14:30 02/10/25 23:25 5 MG Vancomycin HCl 0 ml @ 0 mls/hr UD IV 02/09/25 18:15 Iron Sucrose 110 ml @ 110 mls/hr DAILY@1200 IV 02/11/25 12:00 02/13/25 12:59 02/12/25 12:30 110 MLS/HR Vancomycin HCl 200 ml @ 200 mls/hr Q12H IV 02/11/25 10:00 02/12/25 10:07 200 MLS/HR Examination General examination- patient is awake , alert HEENT- PEERLA, no acute nasal discharge Cardiovascular- S1-S2 audible, rate and rhythm regular, no murmur Respiratory- CTAB, no wheeze or rhonchi Gastrointestinal-nontender, bowel sound+. Nondistended Musculoskeletal-no acute joint swelling or tenderness or redness Lower extremity- status post right above-knee amputation Neurological- cranial nerves intact, no acute dysarthria or dysphagia Psychiatry- denies depression or SI or HI Skin- right foot ulcer with a black eschar on the medial and inferior surface of the foot, with redness and skin excoriation of the rest of the foot, left foot gangrenous changes on the toes and some part of the dorsum of the foot laboratory and microbiology Laboratory Tests 02/12/25 04:50 Test 02/12/25 04:50 Range/Units Serum Glucose 107 H 74-106 mg/dL Microbiology Date/Time Source Procedure Growth Status 02/03/25 08:40 Blood Blood Culture - Final NO GROWTH AFTER 5 DAYS OF INCUBATION. Complete 01/30/25 18:49 Foot Right Gram Stain - Final Complete 01/30/25 18:49 Wound Culture - Final Pseudomonas aeruginosa Stenotrophomonas maltophilia Enterococcus faecalis Methicillin Resistant S.aureus Complete 01/30/25 11:20 Voided Urine Urine Culture - Final Complete Problem List/Assessment/Plan Problem List/Assessment/Plan Assessment and plan--patient was diffuse vasculopathy, cirrhosis of liver, severe anemia, patient with a status post above knee amputation, status post right superficial femoral artery stent, scheduled for left lower extremity arteriogram on Thursday02/13/25. Sepsis likely due to right foot cellulitis Status post right above-knee amputation Right foot cellulitis with a blackish escare Left foot toe was gangrenous changes and also in the dorsum of the foot Necrotizing soft tissue infection of the right foot Right foot abscess Right foot wet gangrene Right foot osteomyelitis Severe anemia, S/P BT - pRBC Likely GI bleeding. FOBT Positive Acute retention of urine likely due to BPH Metabolic encephalopathy/toxic encephalopathy Suspected Wernicke's encephalopathy Hepatitis-C positive Cirrhosis of liver Peripheral arterial disease A-Fib/AV roslyn reentry tachycardia/paroxysmal SVT Severe vasculopathy BPH Constipation Hyperlipidemia Hypertension Ruled out UTI CT angio with run off revealed- Advanced atherosclerotic disease. Zhei-kw-onfhodyd stenosis of the infrarenal abdominal aorta partially imaged. High-grade stenosis or focal occlusion of the proximal right common iliac artery. Occluded right superficial femoral and popliteal arteries. 2-vessel runoff to the right foot via the anterior tibial and peroneal arteries. Moderate high-grade stenosis of the left common iliac artery. Occluded distal left superficial femoral artery and popliteal arteries. Ascites. Patient had Aortogram with right lower extremity arteriogram right common iliac artery angioplasty, status post stent placement. On 02/05/2025- GI- endoscopy, had a 1-2 cm sliding-type hiatal hernia with grade A erosive esophagitis with mild gastroduodenitis with superficial pre- pyloric and duodenal erosions. Plan Blood culture negative Wound culture revealed E coli, MRSA, Pseudomonas aeruginosa, Providencia stuartii. CT abdomen and pelvis revealed moderate ascites, cirrhotic liver. Colonic diverticulosis, small bilateral pleural effusion with overlying compressive atelectasis On 02/02/2025-x-ray of KUB-nonobstructive gas pattern 02/03/2024 CT angio with run off revealed- Advanced atherosclerotic disease. Vunf-ez-wyequkvu stenosis of the infrarenal abdominal aorta partially imaged. High-grade stenosis or focal occlusion of the proximal right common iliac artery. Occluded right superficial femoral and popliteal arteries. 2-vessel runoff to the right foot via the anterior tibial and peroneal arteries. Moderate high-grade stenosis of the left common iliac artery. Occluded distal left superficial femoral artery and popliteal arteries. Ascites. Continue vancomycin as prescribed Continue pain medication as prescribed Pantoprazole as prescribed Tamsulosin 0.4 mg p.o. daily Cilostazol 100 mg p.o. b.i.d. Atorvastatin 80 mg p.o. HS Aspirin 81 mg p.o. daily Metoprolol tartrate 12.5 mg p.o. b.i.d. Continue thiamine as prescribed Continue folic acid as prescribed spironolactone 25 mg q.d. Lasix 20 mg p.o. daily As per Dr. Cali patient is scheduled for right above-knee amputation tomorrow. Goals of care, Code status ; discussed with >15 minutes PUD prophylaxis: Pantoprazole DVT prophylaxis: SCD Plan discussed with Dr. Cotton , nursing staff, Total time spent on patient evaluation, chart review, assessment and plan, discussion discussion >35 minutes Plan discussed with: Patient, Other (RN) Dietary Evaluation Review Recommendations by RD: Increase Calorie Intake, Protein Supplementation Comments: 1) Ensure Enlive 240ml QID (ordered per ONS protocol) 2) Jose A 1 pk BID (ordered per ONS protocol) 3) Continue current POC Expected Outcomes/Goals: wound healing to improve to meet 75% estimated energy & protein needs fu 3-5 days Interpretation of weight loss: >10% in 6 months Fluid Accumulation (Non Severe: Mild fluid retention Protein Calorie Malnutrition: Severe Is there a minimum of two crit: Yes CC Plasma Assessment Blood Product Administration S: 15:10 Date of Service: February 13, 2025 Billing Provider: SARAH RODRÍGUEZ DO Common Visit Codes: [id number] INP/OBS CARE(HIGH) BILLY MORENO RESIDENT February 12, 2025 12:53 SARAH RODRÍGUEZ DO February 13, 2025 16:34
--- NOTE | 2025-02-12 21:44 | DVHPN2 ---
Progress Note - Dictate Date Seen: February 12, 2025 Has the PT tested + for MRSA If YES, has PT been informed?: No Medical Necessity Reason Pt with a Central, PICC or Fol: No The following are medically ne: Aviles Catheter Subjective Patient was seen and evaluated in follow up. Patient is on 2 LPM NC. HGB 8.0, HCT 25, CA 8.5, AST 58, ALT 54. Patient scheduled for left lower extremity arteriogram tomorrow morning. Telemetry reviewed. vital signs Vital Sign Date Time Temp Pulse Resp B/P (MAP) Pulse Ox O2 Delivery O2 Flow Rate FiO2 02/12/25 10:05 116/61 02/12/25 10:05 93 02/12/25 08:59 98.1 20 96 98.1 02/11/25 20:00 Nasal Cannula* 2 28 Total Intake and Output 02/11/25 02/11/25 02/12/25 15:00 23:00 07:00 Intake Total 310 ml 1680 ml 300 ml Output Total 800 ml 350 ml Balance 310 ml 880 ml -50 ml medications Current Medications Medications Dose Ordered Sig/Omar Route Start Time Stop Time Status Last Admin Dose Admin Ascorbic Acid 500 mg BID PO 01/28/25 22:00 02/12/25 10:04 500 MG Acetaminophen 650 mg Q6HP PRN PO 01/28/25 19:00 02/08/25 07:57 650 MG Nitroglycerin 0.4 mg Q5MINP PRN SL 01/28/25 19:00 Atorvastatin Calcium 80 mg HS PO 01/28/25 22:00 02/11/25 21:28 80 MG Cilostazol 100 mg BID PO 01/28/25 22:00 02/12/25 10:03 100 MG Minoxidil 5 mg DAILY PO 01/29/25 10:00 02/12/25 10:03 5 MG Nicotine 1 patch DAILY TD 01/29/25 10:00 02/12/25 10:07 1 PATCH Tamsulosin HCl 0.4 mg DAILY PO 01/29/25 10:00 Hold 01/31/25 10:53 0.4 MG Haloperidol Lactate 5 mg Q8HP PRN IM 01/29/25 17:00 01/30/25 22:01 5 MG Folic Acid 1 mg/ Dextrose 50.2 ml @ 200.8 mls/ hr DAILY INJ 01/31/25 10:00 UNV Folic Acid 1 mg DAILY PO 01/31/25 10:00 02/12/25 10:04 1 MG Multivitamins/ Minerals 1 tab DAILY PO 02/01/25 10:00 02/12/25 10:04 1 TAB Enteral Nutritional Formula 240 ml TID PO 02/02/25 14:00 02/12/25 05:56 240 ML Thiamine HCl 250 mg DAILY IV 02/03/25 10:00 02/08/25 09:59 UNV Metoprolol Tartrate 12.5 mg BID PO 02/02/25 22:00 02/12/25 10:05 12.5 MG Pantoprazole Sodium 40 mg BID IV 02/02/25 22:00 02/12/25 10:04 40 MG Sucralfate 1 gm QIDACHS PO 02/02/25 22:00 02/12/25 11:18 1 GM Lactulose 30 ml BID PO 02/03/25 10:45 02/12/25 10:04 30 ML Furosemide 20 mg DAILY PO 02/04/25 10:00 02/12/25 10:05 20 MG Spironolactone 25 mg DAILY PO 02/04/25 10:00 02/12/25 10:04 25 MG Acetaminophen/ Hydrocodone Bitart 1 tab Q4HPRN PRN PO 02/06/25 22:45 02/12/25 10:03 1 TAB Cyanocobalamin 1,000 mcg DAILY PO 02/10/25 10:00 02/14/25 09:59 02/12/25 10:03 1,000 MCG Thiamine HCl 100 mg DAILY PO 02/10/25 10:00 02/12/25 10:23 100 MG Morphine Sulfate 2 mg Q6HPRN PRN IV 02/09/25 14:30 02/10/25 23:41 2 MG Melatonin 5 mg HS PRN PO 02/09/25 14:30 02/10/25 23:25 5 MG Vancomycin HCl 0 ml @ 0 mls/hr UD IV 02/09/25 18:15 Iron Sucrose 110 ml @ 110 mls/hr DAILY@1200 IV 02/11/25 12:00 02/13/25 12:59 02/12/25 12:30 110 MLS/HR Vancomycin HCl 200 ml @ 200 mls/hr Q12H IV 02/11/25 10:00 02/12/25 10:07 200 MLS/HR objective GENERAL: Alert and oriented x 3. No acute distress. EYES: PERRL, EOMI. Anicteric. HENT: Moist mucous membranes. LUNGS: Clear to auscultation bilaterally. CARDIOVASCULAR: Regular rate and rhythm. ABDOMEN: Soft, nontender and nondistended. EXTREMITIES: No edema. NEUROLOGIC: No focal neurological deficits. SKIN: Warm, dry. laboratory and microbiology Laboratory Tests 02/12/25 04:50 Test 02/12/25 04:50 Range/Units Serum Glucose 107 H 74-106 mg/dL Problem List Atrioventricular roslyn reentry tachycardia. Questionable atrial fibrillation. Nonsustained ventricular tachycardia. Peripheral arterial disease status post bilateral lower extremity stents. Rule out structural heart disease. Hypertension. Hyperlipidemia. Severe anemia requiring PRBC transfusion. GI bleed with positive Hemoccult. Hypokalemia. Sepsis. Right foot osteomyelitis. Necrotizing wound to right foot. Assessment/Plan Continued all current supportive medical care. Morphine and Jay for pain management. Lipitor, Metoprolol. Diuretics with Lasix. IV antibiotics as ordered. GI prophylactics. Nitro SL. Additional plan as per the hospital course. Dietary Evaluation Review Recommendations by RD: Increase Calorie Intake, Protein Supplementation Comments: 1) Ensure Enlive 240ml QID (ordered per ONS protocol) 2) Jose A 1 pk BID (ordered per ONS protocol) 3) Continue current POC Expected Outcomes/Goals: wound healing to improve to meet 75% estimated energy & protein needs fu 3-5 days Interpretation of weight loss: >10% in 6 months Fluid Accumulation (Non Severe: Mild fluid retention Protein Calorie Malnutrition: Severe Is there a minimum of two crit: Yes Plan discussed with: Patient CC Plasma Assessment Blood Product Administration S: 15:10 DEWAYNE SAMANO MD February 12, 2025 13:26
[2025-02-13] VITALS (12 sets, daily range): BP systolic 109–167; BP diastolic 52–87; PULSE 67–108; RESP 17–24; TEMP 97.4–98.3; O2SAT 93–99
[2025-02-13 06:14] LABS: Basophils # (auto) 0.1 10 ^3/uL (0-0.2); Eosinophils # (auto) 0.1 10 ^3/uL (0-0.8); Lymphocytes # (auto) 1.2 10 ^3/uL (0.4-5.4); Monocytes # (auto) 0.6 10 ^3/uL (0-1.3); Red Blood Cells 3.06 10^6/uL (4.5-5.90); White Blood Cell 5.9 10^3/uL (4.4-10.8)
[2025-02-13 06:16] LABS: Basophils % (auto) 1.1 % (0.0-2.0); Hematocrit 26.1 % (41.0-53.0); Hemoglobin 8.3 g/dL (13.5-17.5); Lymphocytes % (auto) 19.6 % (10.0-50.0); Mean Corpuscular Hgb Conc. 31.7 g/dL (32.0-36.0); Mean Corpuscular Volume 85.1 fL (80.0-100.0); Monocytes % (auto) 10.5 % (0.0-12.0); Neutrophils % (auto) 66.8 % (37.0-80.0); Nucleated Red Blood Cells % 0.2 %; Platelet Count (auto) 369 10^3/uL (140-450); Red Cell Distribution Width 19.3 % (11.8-14.3)
[2025-02-13 06:50] LABS: Alkaline Phosphatase 108 U/L (46-116); Anion Gap 7 (5-15); BUN/Creatinine Ratio 16.7 (10.0-20.0); Carbon Dioxide 26 mmol/L (20-31); Chloride 105 mmol/L (98-107); Potassium 3.8 mmol/L (3.5-5.1); Sodium 138 mmol/L (136-145); Total Protein 6.5 g/dL (5.7-8.2)
[2025-02-13 06:51] LABS: Alanine Aminotransferase 53 U/L (7-40); Albumin 2.8 g/dL (3.2-4.8); Aspartate Aminotransferase 57 U/L (13-40); Bilirubin, Total 0.2 mg/dL (0.2-1.0); Blood Urea Nitrogen 8 mg/dL (9-23); Calcium 8.5 mg/dL (8.7-10.4); Glucose 115 mg/dL (74-106)
[2025-02-13] MEDS: MIDAZOLAM HCL 2MG/2ML 2ml VIAL (1mg/ml) ONE (08:22)
[2025-02-13] MEDS: fentaNYL CITRATE 100 MCG/2 ML VL ONE (08:22)
[2025-02-13] MEDS: ANGIOMAX 250 MG VIAL IV ONE ×2 (08:22→09:07)
[2025-02-13] MEDS: SODIUM CHL 0.9% 0 ML ONE ×2 (08:23→09:07)
[2025-02-13] MEDS: HEPARIN SODIUM (PORCINE) 5000 UNITS/ML 1ML VIAL ONE (09:08)
--- NOTE | 2025-02-13 09:57 | DVHOP2 ---
Operative Report - 2 Report Details Date: 02/13/25 Preop Diagnosis: Left leg severe peripheral vascular disease Postop Diagnosis: Same. Surgeon: Wyatt Cali MD Anesthesiologist: Anton Anesthesia: Mac, Regional Consent: The patient was informed of the risks and benefits of the procedure. These include but are not limited to complications of anesthesia, postoperative infection, incomplete relief of symptoms, recurrence of symptoms, damage to blo od vessels, nerves and tendons, deep venous thrombosis, pulmonary embolism and possible need for repeat surgery in the future. Name of Procedure Performed Aortogram, left leg arteriogram, angioplasty of the common femoral artery, supe rficial femoral artery, tibioperoneal trunk Procedure Details Procedure Details: Patient was identified in the preop hold area is being Mr. Gideon perez. He was consented and preopped by myself he was brought back to the laborer road placed in the laborer road table in a supine position after adequate induction of anesthesia. The left and right groins were prepped and draped in normal surgical fashion the right groin was then cannulated with a 4 Albanian micropuncture needle this was ex changed out for a 6 Albanian sheath. A wire and catheter and placed in the aorta aortogram was performed demonstrating widely patent aorto heavily calcified common iliacs bilaterally wire and catheter then were manipulated into the external iliac artery on the left side a left lower extremity arteriogram was performed which demonstrated occlusion of the left common femoral artery pr ofunda was patent the left SFA was occluded distally at the adductor canal where a prior stent had been placed. Popliteal artery was occluded and the tibioperoneal trunk was also occluded. Collaterals were seen filling the tibial vessels below the occlusion. At this point in time 3000 units of heparin was given. A 45 cm destination sheath was then placed into the external iliac artery using a wire and catheter the wire and catheter were both able to be manipulated down to the peroneal artery. This was confirmed by arteriogram of the art peroneal artery. At this point in time the areas treated included the common femoral artery and SFA were both angioplastied with 5 by 200 mm balloons and the tibioperoneal trunk was treated with a 3 x 150 balloon angioplasty balloon. Completion angiogram demonstrated no residual stenosis in the common femoral artery the SFA stent was now widely patent and the tibioperoneal trunk was also patent with flow noted in the anterior tibial artery as well as the per carrington artery. At this point in time the wire and catheter were removed a 6 Albanian Angio-Seal had been deployed in the right common femoral artery. Patient was taken to the PACU in a stable condition. Condition Good Disposition WYATT CALI Jr., MD February 13, 2025 09:57
--- NOTE | 2025-02-13 11:26 | DVHPNRES ---
Progress Note Date Seen: February 13, 2025 Resident Creating Document: BUD ROY RESIDENT Has the PT tested + for MRSA If YES, has PT been informed?: No Medical Necessity Reason Pt with a Central, PICC or Fol: No The following are medically ne: Aviles Catheter Subjective Review of Systems Patient seen and examined at the bedside. Day 0 status post Aortogram, left leg arteriogram, angioplasty of the common femoral artery, superficial femoral artery, tibioperoneal trunk. Patient tolerated procedure well. Patient likely have left 4th and 5th toe amputation tomorrow. will give diet today and we will keep patient NPO after midnight for possible procedures tomorrow. Objective vital signs Vital Sign Date Time Temp Pulse Resp B/P (MAP) Pulse Ox O2 Delivery O2 Flow Rate FiO2 02/13/25 11:03 91 22 143/74 (97) 98 02/13/25 09:00 97.4 97.4 02/12/25 20:00 Nasal Cannula* 2 28 Total Intake and Output 02/12/25 02/12/25 02/13/25 14:59 22:59 06:59 Intake Total 410 ml 650 ml 500 ml Output Total 2200 ml 1400 ml Balance 410 ml -1550 ml -900 ml medications Current Medications Medications Dose Ordered Sig/Omar Route Start Time Stop Time Status Last Admin Dose Admin Ascorbic Acid 500 mg BID PO 01/28/25 22:00 02/12/25 21:30 500 MG Acetaminophen 650 mg Q6HP PRN PO 01/28/25 19:00 02/08/25 07:57 650 MG Nitroglycerin 0.4 mg Q5MINP PRN SL 01/28/25 19:00 Atorvastatin Calcium 80 mg HS PO 01/28/25 22:00 02/12/25 21:30 80 MG Cilostazol 100 mg BID PO 01/28/25 22:00 02/12/25 21:30 100 MG Minoxidil 5 mg DAILY PO 01/29/25 10:00 02/12/25 10:03 5 MG Nicotine 1 patch DAILY TD 01/29/25 10:00 02/12/25 10:07 1 PATCH Tamsulosin HCl 0.4 mg DAILY PO 01/29/25 10:00 01/31/25 10:53 0.4 MG Haloperidol Lactate 5 mg Q8HP PRN IM 01/29/25 17:00 01/30/25 22:01 5 MG Folic Acid 1 mg/ Dextrose 50.2 ml @ 200.8 mls/ hr DAILY INJ 01/31/25 10:00 UNV Folic Acid 1 mg DAILY PO 01/31/25 10:00 02/12/25 10:04 1 MG Multivitamins/ Minerals 1 tab DAILY PO 02/01/25 10:00 02/12/25 10:04 1 TAB Enteral Nutritional Formula 240 ml TID PO 02/02/25 14:00 02/12/25 21:31 240 ML Thiamine HCl 250 mg DAILY IV 02/03/25 10:00 02/08/25 09:59 UNV Metoprolol Tartrate 12.5 mg BID PO 02/02/25 22:00 02/12/25 10:05 12.5 MG Pantoprazole Sodium 40 mg BID IV 02/02/25 22:00 02/12/25 21:30 40 MG Sucralfate 1 gm QIDACHS PO 02/02/25 22:00 02/13/25 06:02 1 GM Lactulose 30 ml BID PO 02/03/25 10:45 02/12/25 21:30 30 ML Furosemide 20 mg DAILY PO 02/04/25 10:00 02/12/25 10:05 20 MG Spironolactone 25 mg DAILY PO 02/04/25 10:00 02/12/25 10:04 25 MG Acetaminophen/ Hydrocodone Bitart 1 tab Q4HPRN PRN PO 02/06/25 22:45 02/13/25 03:55 1 TAB Cyanocobalamin 1,000 mcg DAILY PO 02/10/25 10:00 02/14/25 09:59 02/12/25 10:03 1,000 MCG Thiamine HCl 100 mg DAILY PO 02/10/25 10:00 02/12/25 10:23 100 MG Morphine Sulfate 2 mg Q6HPRN PRN IV 02/09/25 14:30 02/10/25 23:41 2 MG Melatonin 5 mg HS PRN PO 02/09/25 14:30 02/10/25 23:25 5 MG Vancomycin HCl 0 ml @ 0 mls/hr UD IV 02/09/25 18:15 Iron Sucrose 110 ml @ 110 mls/hr DAILY@1200 IV 02/11/25 12:00 02/13/25 12:59 02/12/25 12:30 110 MLS/HR Vancomycin HCl 200 ml @ 200 mls/hr Q12H IV 02/11/25 10:00 02/12/25 21:32 200 MLS/HR Examination Pt is lying on bed General Appearance: Alert, Oriented X3, Cooperative, Not in acute distress HEENT: Atraumatic, Mucous membranes moist/pink Respiratory: Clear to auscultation, Normal air movement, No added sounds Cardiovascular: Regular rate, Normal S1, Normal S2, No murmurs Abdominal: Active bowel sounds, Soft, no distention, no tenderness Extremities:Right above-knee amputation, left foot gangrenous changes on the toes and some part of the dorsum of the foot Skin: left foot gangrenous changes on the toes and some part of the dorsum of the foot Neuro: Normal speech, sensorimotor deficits none Psych/Mental Status: Mental status NL, Mood NL Nurse was there as sharperone during examination laboratory and microbiology Laboratory Tests 02/13/25 05:24 Test 02/13/25 05:24 Range/Units Serum Glucose 115 H 74-106 mg/dL Microbiology Date/Time Source Procedure Growth Status 02/03/25 08:40 Blood Blood Culture - Final NO GROWTH AFTER 5 DAYS OF INCUBATION. Complete 01/30/25 18:49 Foot Right Gram Stain - Final Complete 01/30/25 18:49 Wound Culture - Final Pseudomonas aeruginosa Stenotrophomonas maltophilia Enterococcus faecalis Methicillin Resistant S.aureus Complete 01/30/25 11:20 Voided Urine Urine Culture - Final Complete Labs and/or images reviewed: Labs reviewed by me, Image(s) reviewed by me Problem List/Assessment/Plan Problem List/Assessment/Plan # Sepsis likely from right foot cellulitis # Right foot abscess, wet gangrene, osteomyelitis, cellulitis with a black eschar, necrotizing soft tissue infection, S/P right above-knee amputation # B/L Peripheral arterial disease s/p aortogram, angiogram with angioplasty # Left foot toe gangrenous - CT angio showed advanced atherosclerotic disease, [id number] stenosis on infrarenal abdominal aorta, stenosis of right and left common iliac artery, right & left superficial femoral and popliteal artery, - status post right above-knee amputation, right and left leg arteriogram with angioplasty. - Day 0 status post Aortogram, left leg arteriogram, angioplasty of the common femoral artery, superficial femoral artery, tibioperoneal trunk. - Patient likely scheduled for amputation of left 5th and 4th toe tomorrow as per Dr. Cali - blood culture negative - Wound culture revealed E coli, MRSA, Pseudomonas aeruginosa, Providencia stuartii. - Continue vancomycin, cilostazol, Lipitor 80 mg, aspirin - NPO after midnight # Severe anemia, normocytic, hypochromic, likely iron deficiency v/s anemia of chronic disease S/P BT - pRBC # likely alcoholic liver cirrhosis in compensation # history of hepatitis-C virus infection # Wernicke encephalopathy likely from alcoholism # Metabolic encephalopathy/toxic encephalopathy # Hiatal hernia with grade a erosive esophagitis # mild gastroduodenitis - monitor CBC - transfuse if hemoglobin is less than 7 - Iron supplement - thiamine, folic acid supplements - FOBT positive - Lasix 20 mg, spironolactone 25 mg, Protonix 40 mg IV b.i.d., Carafate b.i.d. - GI consult appreciated - outpatient follow up for EGD and colonoscopy # Acute retention of urine likely due to BPH # BPH - tamsulosin # A-Fib/AV roslyn reentry tachycardia/paroxysmal SVT - continue telemetry monitoring - rate controlled with metoprolol # HLD - Lipitor # HTN - continuously monitor - continue metoprolol tartrate SCDs for now Protonix NPO after midnight Goals of care discussed with the patient for more than 27 minutes: Full code status Case discussed with Dr. Cottno, patient and nurse Plan discussed with: Patient, Other (rn) Dietary Evaluation Review Recommendations by RD: Increase Calorie Intake, Protein Supplementation Comments: 1) Ensure Enlive 240ml QID (ordered per ONS protocol) 2) Jose A 1 pk BID (ordered per ONS protocol) 3) Continue current POC Expected Outcomes/Goals: wound healing to improve to meet 75% estimated energy & protein needs fu 3-5 days Interpretation of weight loss: >10% in 6 months Fluid Accumulation (Non Severe: Mild fluid retention Protein Calorie Malnutrition: Severe Is there a minimum of two crit: Yes CC Plasma Assessment Blood Product Administration S: 15:10 BUD ROY RESIDENT February 13, 2025 11:26
[2025-02-13] MEDS ORDERED: VANCOMYCIN PER PHARMACY 0 MG IV SCH (14:30)
[2025-02-13] MEDS: cefTRIAXone 1GM/50ML D5W 50 ML IV ONE (15:22)
[2025-02-13] MEDS: VANCOMYCIN 1GM/250ML KIT 250 ML IV SCH (16:15)
--- NOTE | 2025-02-13 21:14 | DVHPN2 ---
Progress Note - Dictate Date Seen: February 13, 2025 Has the PT tested + for MRSA If YES, has PT been informed?: No Medical Necessity Reason Pt with a Central, PICC or Fol: No The following are medically ne: Aviles Catheter Subjective No new complaints; overall patient feels better Patient is S/P right above-knee amputation on IV antibiotics chronic leg wound vital signs Vital Sign Date Time Temp Pulse Resp B/P (MAP) Pulse Ox O2 Delivery O2 Flow Rate FiO2 02/13/25 17:00 98.1 106 20 130/59 (82) 94 98.1 02/13/25 08:00 Nasal Cannula* 2 28 Total Intake and Output 02/12/25 02/12/25 02/13/25 15:00 23:00 07:00 Intake Total 410 ml 650 ml 500 ml Output Total 2200 ml 1400 ml Balance 410 ml -1550 ml -900 ml medications Current Medications Medications Dose Ordered Sig/Omar Route Start Time Stop Time Status Last Admin Dose Admin Ascorbic Acid 500 mg BID PO 01/28/25 22:00 02/13/25 11:59 500 MG Acetaminophen 650 mg Q6HP PRN PO 01/28/25 19:00 02/08/25 07:57 650 MG Nitroglycerin 0.4 mg Q5MINP PRN SL 01/28/25 19:00 Atorvastatin Calcium 80 mg HS PO 01/28/25 22:00 02/12/25 21:30 80 MG Cilostazol 100 mg BID PO 01/28/25 22:00 02/13/25 12:01 100 MG Minoxidil 5 mg DAILY PO 01/29/25 10:00 02/13/25 12:14 5 MG Nicotine 1 patch DAILY TD 01/29/25 10:00 02/13/25 11:59 1 PATCH Tamsulosin HCl 0.4 mg DAILY PO 01/29/25 10:00 02/13/25 12:01 0.4 MG Haloperidol Lactate 5 mg Q8HP PRN IM 01/29/25 17:00 01/30/25 22:01 5 MG Folic Acid 1 mg/ Dextrose 50.2 ml @ 200.8 mls/ hr DAILY INJ 01/31/25 10:00 UNV Folic Acid 1 mg DAILY PO 01/31/25 10:00 02/13/25 11:59 1 MG Multivitamins/ Minerals 1 tab DAILY PO 02/01/25 10:00 02/13/25 12:02 1 TAB Enteral Nutritional Formula 240 ml TID PO 02/02/25 14:00 02/13/25 14:00 240 ML Thiamine HCl 250 mg DAILY IV 02/03/25 10:00 02/08/25 09:59 UNV Metoprolol Tartrate 12.5 mg BID PO 02/02/25 22:00 02/13/25 12:01 12.5 MG Pantoprazole Sodium 40 mg BID IV 02/02/25 22:00 02/13/25 12:04 40 MG Sucralfate 1 gm QIDACHS PO 02/02/25 22:00 02/13/25 16:56 1 GM Lactulose 30 ml BID PO 02/03/25 10:45 02/13/25 12:04 30 ML Furosemide 20 mg DAILY PO 02/04/25 10:00 02/13/25 12:00 20 MG Spironolactone 25 mg DAILY PO 02/04/25 10:00 02/13/25 12:01 25 MG Acetaminophen/ Hydrocodone Bitart 1 tab Q4HPRN PRN PO 02/06/25 22:45 02/13/25 16:55 1 TAB Cyanocobalamin 1,000 mcg DAILY PO 02/10/25 10:00 02/14/25 09:59 02/13/25 12:02 1,000 MCG Thiamine HCl 100 mg DAILY PO 02/10/25 10:00 02/13/25 12:01 100 MG Morphine Sulfate 2 mg Q6HPRN PRN IV 02/09/25 14:30 02/10/25 23:41 2 MG Melatonin 5 mg HS PRN PO 02/09/25 14:30 02/10/25 23:25 5 MG Cefepime HCl 50 ml @ 12.5 mls/hr Q8HR IV 02/13/25 22:00 objective General examination- patient is awake , alert HEENT- PEERLA, no acute nasal discharge Cardiovascular- S1-S2 audible, rate and rhythm regular, no murmur Respiratory- CTAB, no wheeze or rhonchi Gastrointestinal-nontender, bowel sound+. Nondistended Musculoskeletal-no acute joint swelling or tenderness or redness Lower extremity- status post right above-knee amputation Neurological- cranial nerves intact, no acute dysarthria or dysphagia laboratory and microbiology Laboratory Tests 02/13/25 05:24 Test 02/13/25 05:24 Range/Units Serum Glucose 115 H 74-106 mg/dL Problems(with codes): (1) Cirrhosis (2) Hepatitis C antibody positive (3) Necrotizing soft tissue infection (4) Wet gangrene (5) Arterial occlusion (6) Osteomyelitis (7) Abscess (8) Hydronephrosis (9) Symptomatic anemia (10) Sepsis Prognosis Pt is status post Aortogram, left leg arteriogram, angioplasty of the common femoral artery, superficial femoral artery, tibioperoneal trunk. Patient tolerated procedure well today. Patient likely have left 4th and 5th toe amputation tomorrow. Continue supportive care from GI point of view Protonix 40 mg IV q.12 hours -Carafate 1 g p.o. twice a day -Outpatient follow up with the GI for to discuss about liver cirrhosis and elective colonoscopy once patient is recovered from his current illness Dietary Evaluation Review Recommendations by RD: Increase Calorie Intake, Protein Supplementation Comments: 1) Ensure Enlive 240ml QID (ordered per ONS protocol) 2) Jose A 1 pk BID (ordered per ONS protocol) 3) Continue current POC Expected Outcomes/Goals: wound healing to improve to meet 75% estimated energy & protein needs fu 3-5 days Interpretation of weight loss: >10% in 6 months Fluid Accumulation (Non Severe: Mild fluid retention Protein Calorie Malnutrition: Severe Is there a minimum of two crit: Yes Plan discussed with: Patient CC Plasma Assessment Blood Product Administration S: 15:10 FERNANDO HUNTER MD February 13, 2025 21:14
[2025-02-13] MEDS: CEFEPIME 1GM/ 50ML 50 ML IV SCH (21:48)
--- NOTE | 2025-02-13 22:16 | DVHPN2 ---
Progress Note - Dictate Date Seen: February 13, 2025 Has the PT tested + for MRSA If YES, has PT been informed?: No Medical Necessity Reason Pt with a Central, PICC or Fol: No The following are medically ne: Aviles Catheter Subjective Patient was seen and evaluated in follow up. Patient is on 2 LPM NC. The patient is status post of eft leg arteriogram, angioplasty of the common femoral artery, superficial femoral artery, tibioperoneal trunk. Patient likely have left 4th and 5th toe amputation tomorrow. HGB 8.3, HCT 26.1. Telemetry reviewed. vital signs Vital Sign Date Time Temp Pulse Resp B/P (MAP) Pulse Ox O2 Delivery O2 Flow Rate FiO2 02/13/25 21:49 102 108/52 02/13/25 21:00 97.5 20 93 97.5 02/13/25 08:00 Nasal Cannula* 2 28 Total Intake and Output 02/12/25 02/12/25 02/13/25 15:00 23:00 07:00 Intake Total 410 ml 650 ml 500 ml Output Total 2200 ml 1400 ml Balance 410 ml -1550 ml -900 ml medications Current Medications Medications Dose Ordered Sig/Omar Route Start Time Stop Time Status Last Admin Dose Admin Ascorbic Acid 500 mg BID PO 01/28/25 22:00 02/13/25 21:49 500 MG Acetaminophen 650 mg Q6HP PRN PO 01/28/25 19:00 02/08/25 07:57 650 MG Nitroglycerin 0.4 mg Q5MINP PRN SL 01/28/25 19:00 Atorvastatin Calcium 80 mg HS PO 01/28/25 22:00 02/13/25 21:49 80 MG Cilostazol 100 mg BID PO 01/28/25 22:00 02/13/25 21:48 100 MG Minoxidil 5 mg DAILY PO 01/29/25 10:00 02/13/25 12:14 5 MG Nicotine 1 patch DAILY TD 01/29/25 10:00 02/13/25 11:59 1 PATCH Tamsulosin HCl 0.4 mg DAILY PO 01/29/25 10:00 02/13/25 12:01 0.4 MG Haloperidol Lactate 5 mg Q8HP PRN IM 01/29/25 17:00 01/30/25 22:01 5 MG Folic Acid 1 mg/ Dextrose 50.2 ml @ 200.8 mls/ hr DAILY INJ 01/31/25 10:00 UNV Folic Acid 1 mg DAILY PO 01/31/25 10:00 02/13/25 11:59 1 MG Multivitamins/ Minerals 1 tab DAILY PO 02/01/25 10:00 02/13/25 12:02 1 TAB Enteral Nutritional Formula 240 ml TID PO 02/02/25 14:00 02/13/25 21:50 240 ML Thiamine HCl 250 mg DAILY IV 02/03/25 10:00 02/08/25 09:59 UNV Metoprolol Tartrate 12.5 mg BID PO 02/02/25 22:00 02/13/25 12:01 12.5 MG Pantoprazole Sodium 40 mg BID IV 02/02/25 22:00 02/13/25 21:48 40 MG Sucralfate 1 gm QIDACHS PO 02/02/25 22:00 02/13/25 21:48 1 GM Lactulose 30 ml BID PO 02/03/25 10:45 02/13/25 21:48 30 ML Furosemide 20 mg DAILY PO 02/04/25 10:00 02/13/25 12:00 20 MG Spironolactone 25 mg DAILY PO 02/04/25 10:00 02/13/25 12:01 25 MG Acetaminophen/ Hydrocodone Bitart 1 tab Q4HPRN PRN PO 02/06/25 22:45 02/13/25 16:55 1 TAB Cyanocobalamin 1,000 mcg DAILY PO 02/10/25 10:00 02/14/25 09:59 02/13/25 12:02 1,000 MCG Thiamine HCl 100 mg DAILY PO 02/10/25 10:00 02/13/25 12:01 100 MG Morphine Sulfate 2 mg Q6HPRN PRN IV 02/09/25 14:30 02/10/25 23:41 2 MG Melatonin 5 mg HS PRN PO 02/09/25 14:30 02/10/25 23:25 5 MG Cefepime HCl 50 ml @ 12.5 mls/hr Q8HR IV 02/13/25 22:00 02/13/25 21:48 12.5 MLS/HR objective GENERAL: Alert and oriented x 3. No acute distress. EYES: PERRL, EOMI. Anicteric. HENT: Moist mucous membranes. LUNGS: Clear to auscultation bilaterally. CARDIOVASCULAR: Regular rate and rhythm. ABDOMEN: Soft, nontender and nondistended. EXTREMITIES: No edema. NEUROLOGIC: No focal neurological deficits. SKIN: Warm, dry. laboratory and microbiology Laboratory Tests 02/13/25 05:24 Test 02/13/25 05:24 Range/Units Serum Glucose 115 H 74-106 mg/dL Problem List Atrioventricular roslyn reentry tachycardia. Questionable atrial fibrillation. Nonsustained ventricular tachycardia. Peripheral arterial disease status post bilateral lower extremity stents. Rule out structural heart disease. Hypertension. Hyperlipidemia. Severe anemia requiring PRBC transfusion. GI bleed with positive Hemoccult. Hypokalemia. Sepsis. Right foot osteomyelitis. Necrotizing wound to right foot. Assessment/Plan Continued all current supportive medical care. Morphine and Paul for pain management. Lipitor, Metoprolol. Diuretics with Lasix. IV antibiotics as ordered. GI prophylactics. Nitro SL. Additional plan as per the hospital course. Dietary Evaluation Review Recommendations by RD: Increase Calorie Intake, Protein Supplementation Comments: 1) Ensure Enlive 240ml QID (ordered per ONS protocol) 2) Jose A 1 pk BID (ordered per ONS protocol) 3) Continue current POC Expected Outcomes/Goals: wound healing to improve to meet 75% estimated energy & protein needs fu 3-5 days Interpretation of weight loss: >10% in 6 months Fluid Accumulation (Non Severe: Mild fluid retention Protein Calorie Malnutrition: Severe Is there a minimum of two crit: Yes Plan discussed with: Patient CC Plasma Assessment Blood Product Administration S: 15:10 DEWAYNE SAMANO MD February 13, 2025 22:16
[2025-02-14] VITALS (7 sets, daily range): BP systolic 104–137; BP diastolic 53–81; PULSE 68–105; RESP 18–20; TEMP 97.6–98.4; O2SAT 94–100
[2025-02-14 06:49] LABS: Basophils # (auto) 0 10 ^3/uL (0-0.2); Eosinophils # (auto) 0.1 10 ^3/uL (0-0.8); Lymphocytes # (auto) 1.3 10 ^3/uL (0.4-5.4); Monocytes # (auto) 0.8 10 ^3/uL (0-1.3)
[2025-02-14 06:55] LABS: Basophils % (auto) 0.7 % (0.0-2.0); Eosinophils % (auto) 1.3 % (0.0-7.0); Hematocrit 23.3 % (41.0-53.0); Hemoglobin 7.7 g/dL (13.5-17.5); Mean Corpuscular Hemoglobin 27.7 pg (28.0-32.0); Mean Corpuscular Volume 83.8 fL (80.0-100.0); Monocytes % (auto) 12.5 % (0.0-12.0); Neutrophils # (auto) 4.4 10 ^3/uL (1.6-8.6); Neutrophils % (auto) 65.5 % (37.0-80.0); Nucleated Red Blood Cells % 0.2 %; Platelet Count (auto) 361 10^3/uL (140-450); Red Blood Cells 2.78 10^6/uL (4.5-5.90); Red Cell Distribution Width 19.9 % (11.8-14.3); White Blood Cell 6.7 10^3/uL (4.4-10.8)
[2025-02-14 07:01] LABS: Anion Gap 8 (5-15); Aspartate Aminotransferase 37 U/L (13-40); BUN/Creatinine Ratio 28.9 (10.0-20.0); Blood Urea Nitrogen 13 mg/dL (9-23); Carbon Dioxide 28 mmol/L (20-31); Chloride 102 mmol/L (98-107); Potassium 3.7 mmol/L (3.5-5.1); Sodium 138 mmol/L (136-145); Total Protein 6.6 g/dL (5.7-8.2)
[2025-02-14 07:02] LABS: Alanine Aminotransferase 47 U/L (7-40); Albumin 2.9 g/dL (3.2-4.8); Alkaline Phosphatase 118 U/L (46-116); Bilirubin, Total 0.2 mg/dL (0.2-1.0); Calcium 8.3 mg/dL (8.7-10.4); Glucose 132 mg/dL (74-106)
[2025-02-14] MEDS ORDERED: cefTRIAXone 1GM/50ML D5W 50 ML IV SCH (09:00)
--- NOTE | 2025-02-14 09:40 | DVHPNRES ---
Progress Note Date Seen: February 14, 2025 Resident Creating Document: BUD ROY RESIDENT Has the PT tested + for MRSA If YES, has PT been informed?: No Medical Necessity Reason Pt with a Central, PICC or Fol: No The following are medically ne: Aviles Catheter Subjective Review of Systems Patient seen and examined at the bedside . Patient is currently NPO, scheduled for left 4th and 5th toe amputation today. Patient reported no new complaints today. Patient reports: No new complaints, Feels better Objective vital signs Vital Sign Date Time Temp Pulse Resp B/P (MAP) Pulse Ox O2 Delivery O2 Flow Rate FiO2 02/14/25 05:00 98.2 105 20 131/66 (87) 100 98.2 02/13/25 20:00 Nasal Cannula* 2 28 Total Intake and Output 02/13/25 02/13/25 02/14/25 15:00 23:00 07:00 Intake Total 1000 ml 650 ml 950 ml Output Total 1700 ml 950 ml Balance 1000 ml -1050 ml 0 ml medications Current Medications Medications Dose Ordered Sig/Omar Route Start Time Stop Time Status Last Admin Dose Admin Ascorbic Acid 500 mg BID PO 01/28/25 22:00 02/13/25 21:49 500 MG Acetaminophen 650 mg Q6HP PRN PO 01/28/25 19:00 02/08/25 07:57 650 MG Nitroglycerin 0.4 mg Q5MINP PRN SL 01/28/25 19:00 Atorvastatin Calcium 80 mg HS PO 01/28/25 22:00 02/13/25 21:49 80 MG Cilostazol 100 mg BID PO 01/28/25 22:00 02/13/25 21:48 100 MG Minoxidil 5 mg DAILY PO 01/29/25 10:00 02/13/25 12:14 5 MG Nicotine 1 patch DAILY TD 01/29/25 10:00 02/13/25 11:59 1 PATCH Tamsulosin HCl 0.4 mg DAILY PO 01/29/25 10:00 02/13/25 12:01 0.4 MG Haloperidol Lactate 5 mg Q8HP PRN IM 01/29/25 17:00 01/30/25 22:01 5 MG Folic Acid 1 mg/ Dextrose 50.2 ml @ 200.8 mls/ hr DAILY INJ 01/31/25 10:00 UNV Folic Acid 1 mg DAILY PO 01/31/25 10:00 02/13/25 11:59 1 MG Multivitamins/ Minerals 1 tab DAILY PO 02/01/25 10:00 02/13/25 12:02 1 TAB Enteral Nutritional Formula 240 ml TID PO 02/02/25 14:00 02/13/25 21:50 240 ML Thiamine HCl 250 mg DAILY IV 02/03/25 10:00 02/08/25 09:59 UNV Metoprolol Tartrate 12.5 mg BID PO 02/02/25 22:00 02/13/25 12:01 12.5 MG Pantoprazole Sodium 40 mg BID IV 02/02/25 22:00 02/13/25 21:48 40 MG Sucralfate 1 gm QIDACHS PO 02/02/25 22:00 02/14/25 06:10 1 GM Lactulose 30 ml BID PO 02/03/25 10:45 02/13/25 21:48 30 ML Furosemide 20 mg DAILY PO 02/04/25 10:00 02/13/25 12:00 20 MG Spironolactone 25 mg DAILY PO 02/04/25 10:00 02/13/25 12:01 25 MG Acetaminophen/ Hydrocodone Bitart 1 tab Q4HPRN PRN PO 02/06/25 22:45 02/14/25 06:09 1 TAB Cyanocobalamin 1,000 mcg DAILY PO 02/10/25 10:00 02/14/25 09:59 02/13/25 12:02 1,000 MCG Thiamine HCl 100 mg DAILY PO 02/10/25 10:00 02/13/25 12:01 100 MG Morphine Sulfate 2 mg Q6HPRN PRN IV 02/09/25 14:30 02/14/25 00:31 2 MG Melatonin 5 mg HS PRN PO 02/09/25 14:30 02/10/25 23:25 5 MG Cefepime HCl 50 ml @ 12.5 mls/hr Q8HR IV 02/13/25 22:00 02/14/25 06:10 12.5 MLS/HR Examination Pt is lying on bed General Appearance: Alert, Oriented X3, Cooperative, Not in acute distress HEENT: Atraumatic, Mucous membranes moist/pink Respiratory: Clear to auscultation, Normal air movement, No added sounds Cardiovascular: Regular rate, Normal S1, Normal S2, No murmurs Abdominal: Active bowel sounds, Soft, no distention, no tenderness Extremities:Right above-knee amputation, left foot gangrenous changes on the toes and some part of the dorsum of the foot Skin: left foot gangrenous changes on the toes and some part of the dorsum of the foot Neuro: Normal speech, sensorimotor deficits none Psych/Mental Status: Mental status NL, Mood NL Nurse was there as sharperone during examination laboratory and microbiology Laboratory Tests 02/14/25 05:18 Test 02/14/25 05:18 Range/Units Serum Glucose 132 H 74-106 mg/dL Microbiology Date/Time Source Procedure Growth Status 02/03/25 08:40 Blood Blood Culture - Final NO GROWTH AFTER 5 DAYS OF INCUBATION. Complete 01/30/25 18:49 Foot Right Gram Stain - Final Complete 01/30/25 18:49 Wound Culture - Final Pseudomonas aeruginosa Stenotrophomonas maltophilia Enterococcus faecalis Methicillin Resistant S.aureus Complete 01/30/25 11:20 Voided Urine Urine Culture - Final Complete Labs and/or images reviewed: Labs reviewed by me, Image(s) reviewed by me Problem List/Assessment/Plan Problem List/Assessment/Plan # Sepsis likely from right foot cellulitis # Right foot abscess, wet gangrene, osteomyelitis, cellulitis with a black eschar, necrotizing soft tissue infection, S/P right above-knee amputation # B/L Peripheral arterial disease s/p aortogram, angiogram with angioplasty # Left foot toe gangrenous - CT angio showed advanced atherosclerotic disease, [id number] stenosis on infrarenal abdominal aorta, stenosis of right and left common iliac artery, right & left superficial femoral and popliteal artery, - status post right above-knee amputation, right and left leg arteriogram with angioplasty. - Day 1 status post Aortogram, left leg arteriogram, angioplasty of the common femoral artery, superficial femoral artery, tibioperoneal trunk. - Patient today scheduled for amputation of left 5th and 4th toe - blood culture negative - Wound culture revealed E coli, MRSA, Pseudomonas aeruginosa, Providencia stuartii. - Continue vancomycin, Cefepime, cilostazol, Lipitor 80 mg, aspirin # Severe anemia, normocytic, hypochromic, likely iron deficiency v/s anemia of chronic disease S/P BT - pRBC # likely alcoholic liver cirrhosis in compensation # history of hepatitis-C virus infection # Wernicke encephalopathy likely from alcoholism # Metabolic encephalopathy/toxic encephalopathy # Hiatal hernia with grade a erosive esophagitis # mild gastroduodenitis - monitor CBC - transfuse if hemoglobin is less than 7 - Iron supplement - thiamine, folic acid supplements - FOBT positive - Lasix 20 mg, spironolactone 25 mg, Protonix 40 mg IV b.i.d., Carafate b.i.d. - GI consult appreciated - outpatient follow up for EGD and colonoscopy # Acute retention of urine likely due to BPH # BPH - tamsulosin # A-Fib/AV roslyn reentry tachycardia/paroxysmal SVT - continue telemetry monitoring - rate controlled with metoprolol # HLD - Lipitor # HTN - continuously monitor - continue metoprolol tartrate SCDs for now Protonix NPO for now, resume diet after the procedure today Goals of care discussed with the patient for more than 27 minutes: Full code status Case discussed with Dr. Cotton, patient and nurse Plan discussed with: Patient, Other (RN) My Orders My Orders Orders - BUD ROY RESIDENT Procedure Category Date Status Time Cefepime 1gm/ 50ml PHA 02/13/25 In Process (Maxipime 1gm/50ml) 22:00 Apply Barrier Cream DELROY 02/13/25 In Process 15:56 Vancomycin,Trough LAB 02/14/25 Logged 21:00 Vancomycin Per DELROY 02/13/25 In Process Pharmacy Protoc 16:01 Dietary Evaluation Review Recommendations by RD: Increase Calorie Intake, Protein Supplementation Comments: 1) Ensure Enlive 240ml QID (ordered per ONS protocol) 2) Jose A 1 pk BID (ordered per ONS protocol) 3) Continue current POC Expected Outcomes/Goals: wound healing to improve to meet 75% estimated energy & protein needs fu 3-5 days Interpretation of weight loss: >10% in 6 months Fluid Accumulation (Non Severe: Mild fluid retention Protein Calorie Malnutrition: Severe Is there a minimum of two crit: Yes CC Plasma Assessment Blood Product Administration S: 15:10 BUD ROY RESIDENT February 14, 2025 09:40
[2025-02-14] MEDS: ceFAZolin 2 GM/D5W50ml 50 ML IV ONE (11:46)
[2025-02-14] MEDS ORDERED: MIDAZOLAM HCL 2MG/2ML 2ml VIAL (1mg/ml) ONE (12:05)
[2025-02-14] MEDS ORDERED: fentaNYL CITRATE 100 MCG/2 ML VL ONE (12:05)
[2025-02-14] MEDS: BUPIVACAINE HCL 0.25% P/F 10 ML VIAL ONE (12:15)
[2025-02-14] MEDS ORDERED: hydrALAZINE HCL 20 MG/ML VL IV PRN (12:30)
[2025-02-14] MEDS: ONDANSETRON HCL 4 MG/2 ML VIAL IV ONE (12:30)
[2025-02-14] MEDS ORDERED: ePHEDrine SULFATE 50 MG/ML AMP IV PRN (12:30)
[2025-02-14] MEDS ORDERED: PROPOFOL 10 MG/ML 20 ML IV ONE (12:42)
--- NOTE | 2025-02-14 12:49 | DVHOP2 ---
Operative Report - 2 Report Details Date: 02/14/25 Preop Diagnosis: Left leg severe peripheral vascular disease Postop Diagnosis: Same. Surgeon: Wyatt Cali MD Anesthesiologist: Anton Anesthesia: Mac, Regional Consent: The patient was informed of the risks and benefits of the procedure. These include but are not limited to complications of anesthesia, postoperative infection, incomplete relief of symptoms, recurrence of symptoms, damage to blo od vessels, nerves and tendons, deep venous thrombosis, pulmonary embolism and possible need for repeat surgery in the future. Estimated Blood Loss: 10ml Findings: Gangrene left 3rd 4th 5th toe Indications for Surgery: Gangrene and will have the head 4th 5th toe Name of Procedure Performed Amputation of the left 3rd 4th 5th toe metatarsal Procedure Details Procedure Details: Patient was identified in the preop hold area is being Mr. Gideon perez. He was consented and preopped by myself he was brought back to the operating room placed in the operating table in supine position after adequate induction of anesthesia antibiotics and time-out the left foot was prepped and draped in normal surgical fashion elliptical incision was made around the 3rd 4th 5th toe bases the toes were the amputated there was healthy bleeding noted at the tissues this was controlled with Bovie cauterization the 3rd 4th and 5th metatarsal bone heads were all freed of any tissue and then were transected with a bone saw each approximately 1 cm length. Once the three toes and metatarsal heads were removed the wound was irrigated out bleeding was controlled the wound was then closed with a dermal layer of interrupted 2-0 Vicryl sutures followed by skin closure with interrupted 2-0 nylon sutures. Sterile dressing was applied. Patient tolerated procedure was taken to recovery room in a stable condition sponge and needle counts were correct. Specimen: Third 4th and 5th toe metatarsal heads Condition Good Disposition WYATT CALI Jr., MD February 14, 2025 12:49
[2025-02-14] MEDS: MIDAZOLAM HCL 2MG/2ML 2ml VIAL (1mg/ml) IV PRN (13:15)
--- NOTE | 2025-02-14 22:28 | DVHPN2 ---
Progress Note - Dictate Date Seen: February 14, 2025 Has the PT tested + for MRSA If YES, has PT been informed?: No Medical Necessity Reason Pt with a Central, PICC or Fol: No The following are medically ne: Aviles Catheter Subjective No new complaints; overall patient feels better Patient is S/P right above-knee amputation SP amputation of left 3rd 4th and 5th metatarsals today on IV antibiotics chronic leg wound vital signs Vital Sign Date Time Temp Pulse Resp B/P (MAP) Pulse Ox O2 Delivery O2 Flow Rate FiO2 02/14/25 21:59 105 18 137/77 02/14/25 17:00 97.6 94 97.6 02/14/25 12:48 Mask 10.0 02/14/25 12:48 98 Total Intake and Output 02/13/25 02/13/25 02/14/25 15:00 23:00 07:00 Intake Total 1000 ml 650 ml 950 ml Output Total 1700 ml 950 ml Balance 1000 ml -1050 ml 0 ml medications Current Medications Medications Dose Ordered Sig/Omar Route Start Time Stop Time Status Last Admin Dose Admin Ascorbic Acid 500 mg BID PO 01/28/25 22:00 02/14/25 21:37 500 MG Acetaminophen 650 mg Q6HP PRN PO 01/28/25 19:00 02/08/25 07:57 650 MG Nitroglycerin 0.4 mg Q5MINP PRN SL 01/28/25 19:00 Atorvastatin Calcium 80 mg HS PO 01/28/25 22:00 02/14/25 21:36 80 MG Cilostazol 100 mg BID PO 01/28/25 22:00 02/14/25 21:37 100 MG Minoxidil 5 mg DAILY PO 01/29/25 10:00 02/13/25 12:14 5 MG Nicotine 1 patch DAILY TD 01/29/25 10:00 02/13/25 11:59 1 PATCH Tamsulosin HCl 0.4 mg DAILY PO 01/29/25 10:00 02/13/25 12:01 0.4 MG Haloperidol Lactate 5 mg Q8HP PRN IM 01/29/25 17:00 01/30/25 22:01 5 MG Folic Acid 1 mg/ Dextrose 50.2 ml @ 200.8 mls/ hr DAILY INJ 01/31/25 10:00 UNV Folic Acid 1 mg DAILY PO 01/31/25 10:00 02/13/25 11:59 1 MG Multivitamins/ Minerals 1 tab DAILY PO 02/01/25 10:00 02/13/25 12:02 1 TAB Enteral Nutritional Formula 240 ml TID PO 02/02/25 14:00 02/14/25 21:42 240 ML Thiamine HCl 250 mg DAILY IV 02/03/25 10:00 02/08/25 09:59 UNV Metoprolol Tartrate 12.5 mg BID PO 02/02/25 22:00 02/14/25 21:36 12.5 MG Pantoprazole Sodium 40 mg BID IV 02/02/25 22:00 02/14/25 21:37 40 MG Sucralfate 1 gm QIDACHS PO 02/02/25 22:00 02/14/25 21:35 1 GM Lactulose 30 ml BID PO 02/03/25 10:45 02/14/25 21:35 30 ML Furosemide 20 mg DAILY PO 02/04/25 10:00 02/13/25 12:00 20 MG Spironolactone 25 mg DAILY PO 02/04/25 10:00 02/13/25 12:01 25 MG Acetaminophen/ Hydrocodone Bitart 1 tab Q4HPRN PRN PO 02/06/25 22:45 02/14/25 20:18 1 TAB Thiamine HCl 100 mg DAILY PO 02/10/25 10:00 02/13/25 12:01 100 MG Morphine Sulfate 2 mg Q6HPRN PRN IV 02/09/25 14:30 02/14/25 21:29 2 MG Melatonin 5 mg HS PRN PO 02/09/25 14:30 02/10/25 23:25 5 MG Cefepime HCl 50 ml @ 12.5 mls/hr Q8HR IV 02/13/25 22:00 02/14/25 21:50 12.5 MLS/HR objective General examination- patient is awake , alert HEENT- PEERLA, no acute nasal discharge Cardiovascular- S1-S2 audible, rate and rhythm regular, no murmur Respiratory- CTAB, no wheeze or rhonchi Gastrointestinal-nontender, bowel sound+. Nondistended Musculoskeletal-no acute joint swelling or tenderness or redness Lower extremity- status post right above-knee amputation Neurological- cranial nerves intact, no acute dysarthria or dysphagia laboratory and microbiology Laboratory Tests 02/14/25 05:18 Test 02/14/25 05:18 Range/Units Serum Glucose 132 H 74-106 mg/dL Problems(with codes): (1) Hepatitis C antibody positive (2) Wet gangrene (3) Necrotizing soft tissue infection (4) Cirrhosis Prognosis Continue supportive care from GI point of view Protonix 40 mg IV q.12 hours -Carafate 1 g p.o. twice a day -Outpatient follow up with the GI for to discuss about liver cirrhosis and elective colonoscopy once patient is recovered from his current illness Dietary Evaluation Review Recommendations by RD: Increase Calorie Intake, Protein Supplementation Comments: 1) Ensure Enlive 240ml QID (ordered per ONS protocol) 2) Jose A 1 pk BID (ordered per ONS protocol) 3) Continue current POC Expected Outcomes/Goals: wound healing to improve to meet 75% estimated energy & protein needs fu 3-5 days Interpretation of weight loss: >10% in 6 months Fluid Accumulation (Non Severe: Mild fluid retention Protein Calorie Malnutrition: Severe Is there a minimum of two crit: Yes Plan discussed with: Patient CC Plasma Assessment Blood Product Administration S: 15:10 FERNANDO HUNTER MD February 14, 2025 22:28
--- NOTE | 2025-02-14 23:15 | DVHPN2 ---
Progress Note - Dictate Date Seen: February 14, 2025 Has the PT tested + for MRSA If YES, has PT been informed?: No Medical Necessity Reason Pt with a Central, PICC or Fol: No The following are medically ne: Aviles Catheter Subjective Patient was seen and evaluated in follow up. Patient is on 2 LPM NC. Patient is complaining of LLE pain. Patient is s/p amputation of left 3rd 4th and 5th metatarsals today. HGB 7.7, HCT 23.3, ALT 47. Telemetry reviewed. vital signs Vital Sign Date Time Temp Pulse Resp B/P (MAP) Pulse Ox O2 Delivery O2 Flow Rate FiO2 02/14/25 21:59 105 18 137/77 02/14/25 21:00 98.1 98 98.1 02/14/25 12:48 Mask 10.0 02/14/25 12:48 98 Total Intake and Output 02/13/25 02/13/25 02/14/25 15:00 23:00 07:00 Intake Total 1000 ml 650 ml 950 ml Output Total 1700 ml 950 ml Balance 1000 ml -1050 ml 0 ml medications Current Medications Medications Dose Ordered Sig/Omar Route Start Time Stop Time Status Last Admin Dose Admin Ascorbic Acid 500 mg BID PO 01/28/25 22:00 02/14/25 21:37 500 MG Acetaminophen 650 mg Q6HP PRN PO 01/28/25 19:00 02/08/25 07:57 650 MG Nitroglycerin 0.4 mg Q5MINP PRN SL 01/28/25 19:00 Atorvastatin Calcium 80 mg HS PO 01/28/25 22:00 02/14/25 21:36 80 MG Cilostazol 100 mg BID PO 01/28/25 22:00 02/14/25 21:37 100 MG Minoxidil 5 mg DAILY PO 01/29/25 10:00 02/13/25 12:14 5 MG Nicotine 1 patch DAILY TD 01/29/25 10:00 02/13/25 11:59 1 PATCH Tamsulosin HCl 0.4 mg DAILY PO 01/29/25 10:00 02/13/25 12:01 0.4 MG Haloperidol Lactate 5 mg Q8HP PRN IM 01/29/25 17:00 01/30/25 22:01 5 MG Folic Acid 1 mg/ Dextrose 50.2 ml @ 200.8 mls/ hr DAILY INJ 01/31/25 10:00 UNV Folic Acid 1 mg DAILY PO 01/31/25 10:00 02/13/25 11:59 1 MG Multivitamins/ Minerals 1 tab DAILY PO 02/01/25 10:00 02/13/25 12:02 1 TAB Enteral Nutritional Formula 240 ml TID PO 02/02/25 14:00 02/14/25 21:42 240 ML Thiamine HCl 250 mg DAILY IV 02/03/25 10:00 02/08/25 09:59 UNV Metoprolol Tartrate 12.5 mg BID PO 02/02/25 22:00 02/14/25 21:36 12.5 MG Pantoprazole Sodium 40 mg BID IV 02/02/25 22:00 02/14/25 21:37 40 MG Sucralfate 1 gm QIDACHS PO 02/02/25 22:00 02/14/25 21:35 1 GM Lactulose 30 ml BID PO 02/03/25 10:45 02/14/25 21:35 30 ML Furosemide 20 mg DAILY PO 02/04/25 10:00 02/13/25 12:00 20 MG Spironolactone 25 mg DAILY PO 02/04/25 10:00 02/13/25 12:01 25 MG Acetaminophen/ Hydrocodone Bitart 1 tab Q4HPRN PRN PO 02/06/25 22:45 02/14/25 20:18 1 TAB Thiamine HCl 100 mg DAILY PO 02/10/25 10:00 02/13/25 12:01 100 MG Morphine Sulfate 2 mg Q6HPRN PRN IV 02/09/25 14:30 02/14/25 21:29 2 MG Melatonin 5 mg HS PRN PO 02/09/25 14:30 02/10/25 23:25 5 MG Cefepime HCl 50 ml @ 12.5 mls/hr Q8HR IV 02/13/25 22:00 02/14/25 21:50 12.5 MLS/HR objective GENERAL: Alert and oriented x 3. No acute distress. EYES: PERRL, EOMI. Anicteric. HENT: Moist mucous membranes. LUNGS: Clear to auscultation bilaterally. CARDIOVASCULAR: Regular rate and rhythm. ABDOMEN: Soft, nontender and nondistended. EXTREMITIES: No edema. NEUROLOGIC: No focal neurological deficits. SKIN: Warm, dry. laboratory and microbiology Laboratory Tests 02/14/25 05:18 Test 02/14/25 05:18 Range/Units Serum Glucose 132 H 74-106 mg/dL Problem List Atrioventricular roslyn reentry tachycardia. Questionable atrial fibrillation. Nonsustained ventricular tachycardia. Peripheral arterial disease status post bilateral lower extremity stents. Rule out structural heart disease. Hypertension. Hyperlipidemia. Severe anemia requiring PRBC transfusion. GI bleed with positive Hemoccult. Hypokalemia. Sepsis. Right foot osteomyelitis. Necrotizing wound to right foot. Assessment/Plan Continued all current supportive medical care. Morphine and [place] for pain management. Lipitor, Metoprolol. Diuretics with Lasix. IV antibiotics as ordered. GI prophylactics. Nitro SL. Additional plan as per the hospital course. Dietary Evaluation Review Recommendations by RD: Increase Calorie Intake, Protein Supplementation Comments: 1) Ensure Enlive 240ml QID (ordered per ONS protocol) 2) Jose A 1 pk BID (ordered per ONS protocol) 3) Continue current POC Expected Outcomes/Goals: wound healing to improve to meet 75% estimated energy & protein needs fu 3-5 days Interpretation of weight loss: >10% in 6 months Fluid Accumulation (Non Severe: Mild fluid retention Protein Calorie Malnutrition: Severe Is there a minimum of two crit: Yes Plan discussed with: Patient CC Plasma Assessment Blood Product Administration S: 15:10 DEWAYNE SAMANO MD February 14, 2025 23:15
[2025-02-15] MEDS: HYDROmorphone HCL 2 MG/ML VL/or syr IV ONE (00:25)
[2025-02-15 05:00] VITALS: BP 115/64; PULSE 98; RESP 18; TEMP 97.9; O2SAT 95
[2025-02-15 06:38] LABS: Basophils # (auto) 0 10 ^3/uL (0-0.2); Basophils % (auto) 0.6 % (0.0-2.0); Eosinophils # (auto) 0.1 10 ^3/uL (0-0.8); Hematocrit 25.3 % (41.0-53.0); Hemoglobin 8.4 g/dL (13.5-17.5); Lymphocytes # (auto) 1.3 10 ^3/uL (0.4-5.4); Lymphocytes % (auto) 15.9 % (10.0-50.0); Mean Corpuscular Hemoglobin 28.1 pg (28.0-32.0); Mean Corpuscular Hgb Conc. 33.3 g/dL (32.0-36.0); Mean Corpuscular Volume 84.5 fL (80.0-100.0); Monocytes # (auto) 1.1 10 ^3/uL (0-1.3); Monocytes % (auto) 12.7 % (0.0-12.0); Neutrophils # (auto) 5.9 10 ^3/uL (1.6-8.6); Neutrophils % (auto) 69.8 % (37.0-80.0); Platelet Count (auto) 416 10^3/uL (140-450); Red Cell Distribution Width 20.4 % (11.8-14.3); White Blood Cell 8.4 10^3/uL (4.4-10.8)
[2025-02-15 07:07] LABS: Anion Gap 6 (5-15); BUN/Creatinine Ratio 28.3 (10.0-20.0); Blood Urea Nitrogen 15 mg/dL (9-23); Carbon Dioxide 27 mmol/L (20-31); Chloride 103 mmol/L (98-107); Potassium 4.1 mmol/L (3.5-5.1); Sodium 136 mmol/L (136-145)
[2025-02-15 07:08] LABS: Alkaline Phosphatase 117 U/L (46-116); Calcium 8.1 mg/dL (8.7-10.4); Glucose 133 mg/dL (74-106)
[2025-02-15 07:18] LABS: Alanine Aminotransferase 46 U/L (7-40)
[2025-02-15 07:21] LABS: Albumin 3.1 g/dL (3.2-4.8); Aspartate Aminotransferase 49 U/L (13-40); Bilirubin, Total 0.2 mg/dL (0.2-1.0)
[2025-02-15 08:47] VITALS: BP 123/73; PULSE 75; RESP 14; TEMP 98.7; O2SAT 98
--- NOTE | 2025-02-15 09:34 | DVHPNRES ---
Progress Note Date Seen: February 15, 2025 Resident Creating Document: BUD ROY RESIDENT Has the PT tested + for MRSA If YES, has PT been informed?: No Medical Necessity Reason Pt with a Central, PICC or Fol: No The following are medically ne: Aviles Catheter Subjective Review of Systems Patient seen and examined at the bedside. Day 1 Status post amputation of left 3rd, 4th and 5th toe amputation. Patient reported no new complaints today. Physical therapy evaluation then planning be made for placement. Patient reports: No new complaints, Feels better Changes from previous H/P or p: No Changes Objective vital signs Vital Sign Date Time Temp Pulse Resp B/P (MAP) Pulse Ox O2 Delivery O2 Flow Rate FiO2 02/15/25 08:47 98.7 75 14 123/73 (90) 98 98.7 02/14/25 20:00 Room Air* 0 21 Total Intake and Output 02/14/25 02/14/25 02/15/25 15:00 23:00 07:00 Intake Total 65 ml 650 ml 1000 ml Output Total 200 ml 850 ml Balance 65 ml 450 ml 150 ml medications Current Medications Medications Dose Ordered Sig/Omar Route Start Time Stop Time Status Last Admin Dose Admin Ascorbic Acid 500 mg BID PO 01/28/25 22:00 02/15/25 08:31 500 MG Acetaminophen 650 mg Q6HP PRN PO 01/28/25 19:00 02/08/25 07:57 650 MG Nitroglycerin 0.4 mg Q5MINP PRN SL 01/28/25 19:00 Atorvastatin Calcium 80 mg HS PO 01/28/25 22:00 02/14/25 21:36 80 MG Cilostazol 100 mg BID PO 01/28/25 22:00 02/15/25 08:30 100 MG Minoxidil 5 mg DAILY PO 01/29/25 10:00 02/13/25 12:14 5 MG Nicotine 1 patch DAILY TD 01/29/25 10:00 02/15/25 08:32 1 PATCH Tamsulosin HCl 0.4 mg DAILY PO 01/29/25 10:00 02/15/25 08:30 0.4 MG Haloperidol Lactate 5 mg Q8HP PRN IM 01/29/25 17:00 01/30/25 22:01 5 MG Folic Acid 1 mg/ Dextrose 50.2 ml @ 200.8 mls/ hr DAILY INJ 01/31/25 10:00 UNV Folic Acid 1 mg DAILY PO 01/31/25 10:00 02/15/25 08:30 1 MG Multivitamins/ Minerals 1 tab DAILY PO 02/01/25 10:00 02/15/25 08:29 1 TAB Enteral Nutritional Formula 240 ml TID PO 02/02/25 14:00 02/15/25 06:00 240 ML Thiamine HCl 250 mg DAILY IV 02/03/25 10:00 02/08/25 09:59 UNV Metoprolol Tartrate 12.5 mg BID PO 02/02/25 22:00 02/15/25 08:29 12.5 MG Pantoprazole Sodium 40 mg BID IV 02/02/25 22:00 02/15/25 08:28 40 MG Sucralfate 1 gm QIDACHS PO 02/02/25 22:00 02/15/25 06:36 1 GM Lactulose 30 ml BID PO 02/03/25 10:45 02/15/25 08:34 30 ML Furosemide 20 mg DAILY PO 02/04/25 10:00 02/13/25 12:00 20 MG Spironolactone 25 mg DAILY PO 02/04/25 10:00 02/15/25 08:30 25 MG Acetaminophen/ Hydrocodone Bitart 1 tab Q4HPRN PRN PO 02/06/25 22:45 02/15/25 06:36 1 TAB Thiamine HCl 100 mg DAILY PO 02/10/25 10:00 02/15/25 08:30 100 MG Morphine Sulfate 2 mg Q6HPRN PRN IV 02/09/25 14:30 02/15/25 08:28 2 MG Melatonin 5 mg HS PRN PO 02/09/25 14:30 02/10/25 23:25 5 MG Cefepime HCl 50 ml @ 12.5 mls/hr Q8HR IV 02/13/25 22:00 02/15/25 06:37 12.5 MLS/HR Examination Pt is lying on bed General Appearance: Alert, Oriented X3, Cooperative, Not in acute distress HEENT: Atraumatic, Mucous membranes moist/pink Respiratory: Clear to auscultation, Normal air movement, No added sounds Cardiovascular: Regular rate, Normal S1, Normal S2, No murmurs Abdominal: Active bowel sounds, Soft, no distention, no tenderness Extremities:Right above-knee amputation, left foot 3rd, 4th, 5th toe amputation Skin: left foot gangrenous changes on the toes and some part of the dorsum of the foot Neuro: Normal speech, sensorimotor deficits none Psych/Mental Status: Mental status NL, Mood NL Nurse was there as sharperone during examination laboratory and microbiology Laboratory Tests 02/15/25 05:21 Test 02/15/25 05:21 Range/Units Serum Glucose 133 H 74-106 mg/dL Microbiology Date/Time Source Procedure Growth Status 02/03/25 08:40 Blood Blood Culture - Final NO GROWTH AFTER 5 DAYS OF INCUBATION. Complete 01/30/25 18:49 Foot Right Gram Stain - Final Complete 01/30/25 18:49 Wound Culture - Final Pseudomonas aeruginosa Stenotrophomonas maltophilia Enterococcus faecalis Methicillin Resistant S.aureus Complete 01/30/25 11:20 Voided Urine Urine Culture - Final Complete Labs and/or images reviewed: Labs reviewed by me, Image(s) reviewed by me Problem List/Assessment/Plan Problem List/Assessment/Plan # Sepsis likely from right foot cellulitis # Right foot abscess, wet gangrene, osteomyelitis, cellulitis with a black eschar, necrotizing soft tissue infection, S/P right above-knee amputation # B/L Peripheral arterial disease s/p aortogram, angiogram with angioplasty # Left foot toe gangrenous - CT angio showed advanced atherosclerotic disease, [id number] stenosis on infrarenal abdominal aorta, stenosis of right and left common iliac artery, right & left superficial femoral and popliteal artery, - S/p right above-knee amputation, right and left leg arteriogram with angioplasty. - S/p Aortogram, left leg arteriogram, angioplasty of the common femoral artery, superficial femoral artery, tibioperoneal trunk. - Day 1 Status post amputation of left 3rd, 4th and 5th toe amputation. - blood culture negative - Wound culture revealed E coli, MRSA, Pseudomonas aeruginosa, Providencia stuartii. - Continue vancomycin, Cefepime, cilostazol, Lipitor 80 mg, aspirin - Physical therapy evaluation then planning be made for placement. # Severe anemia, normocytic, hypochromic, likely iron deficiency v/s anemia of chronic disease S/P BT - pRBC # likely alcoholic liver cirrhosis in compensation # history of hepatitis-C virus infection # Wernicke encephalopathy likely from alcoholism # Metabolic encephalopathy/toxic encephalopathy # Hiatal hernia with grade a erosive esophagitis # mild gastroduodenitis - monitor CBC - transfuse if hemoglobin is less than 7 - Iron supplement - thiamine, folic acid supplements - FOBT positive - Lasix 20 mg, spironolactone 25 mg, Protonix 40 mg IV b.i.d., Carafate b.i.d. - GI consult appreciated - outpatient follow up for EGD and colonoscopy # Acute retention of urine likely due to BPH # BPH - tamsulosin # A-Fib/AV roslyn reentry tachycardia/paroxysmal SVT - continue telemetry monitoring - rate controlled with metoprolol # HLD - Lipitor # HTN - continuously monitor - continue metoprolol tartrate SCDs for now Protonix NPO for now, resume diet after the procedure today Goals of care discussed with the patient for more than 27 minutes: Full code status Case discussed with Dr. Cotton, patient and nurse Plan discussed with: Patient, Other (rn) My Orders My Orders Orders - BUD ROY RESIDENT Procedure Category Date Status Time Cardiac DIET 02/14/25 Transmitted Diet-2gna,Lofat,Lochol Dinner Pt Request For Service PT 02/15/25 Logged 09:31 Dietary Evaluation Review Recommendations by RD: Increase Calorie Intake, Protein Supplementation Comments: 1) Ensure Enlive 240ml QID (ordered per ONS protocol) 2) Jose A 1 pk BID (ordered per ONS protocol) 3) Continue current POC Expected Outcomes/Goals: wound healing to improve to meet 75% estimated energy & protein needs fu 3-5 days Interpretation of weight loss: >10% in 6 months Fluid Accumulation (Non Severe: Mild fluid retention Protein Calorie Malnutrition: Severe Is there a minimum of two crit: Yes CC Plasma Assessment Blood Product Administration S: 15:10 BUD ROY RESIDENT February 15, 2025 09:34
[2025-02-15 13:00] VITALS: BP 121/63; PULSE 90; RESP 16; TEMP 97.8; O2SAT 96
[2025-02-15 17:00] VITALS: BP 96/47; PULSE 80; RESP 16; TEMP 97.8; O2SAT 98
--- NOTE | 2025-02-15 18:18 | DVHPN2 ---
Progress Note - Dictate Date Seen: February 15, 2025 Has the PT tested + for MRSA If YES, has PT been informed?: No Medical Necessity Reason Pt with a Central, PICC or Fol: No The following are medically ne: Aviles Catheter Subjective Patient was seen and evaluated in follow up. Patient is now on room air. Patient is complaining of LLE pain at amputation site. HGB 8.4, HCT 25.3, AST 49, ALT 46. Patient is pending PT eval. Telemetry reviewed. vital signs Vital Sign Date Time Temp Pulse Resp B/P (MAP) Pulse Ox O2 Delivery O2 Flow Rate FiO2 02/15/25 13:01 101 16 102/56 02/15/25 13:00 97.8 96 97.8 02/15/25 08:30 Room Air* 0 21 Total Intake and Output 02/14/25 02/14/25 02/15/25 15:00 23:00 07:00 Intake Total 65 ml 650 ml 1000 ml Output Total 200 ml 850 ml Balance 65 ml 450 ml 150 ml medications Current Medications Medications Dose Ordered Sig/Omar Route Start Time Stop Time Status Last Admin Dose Admin Ascorbic Acid 500 mg BID PO 01/28/25 22:00 02/15/25 08:31 500 MG Acetaminophen 650 mg Q6HP PRN PO 01/28/25 19:00 02/08/25 07:57 650 MG Nitroglycerin 0.4 mg Q5MINP PRN SL 01/28/25 19:00 Atorvastatin Calcium 80 mg HS PO 01/28/25 22:00 02/14/25 21:36 80 MG Cilostazol 100 mg BID PO 01/28/25 22:00 02/15/25 08:30 100 MG Minoxidil 5 mg DAILY PO 01/29/25 10:00 02/13/25 12:14 5 MG Nicotine 1 patch DAILY TD 01/29/25 10:00 02/15/25 08:32 1 PATCH Tamsulosin HCl 0.4 mg DAILY PO 01/29/25 10:00 02/15/25 08:30 0.4 MG Haloperidol Lactate 5 mg Q8HP PRN IM 01/29/25 17:00 01/30/25 22:01 5 MG Folic Acid 1 mg/ Dextrose 50.2 ml @ 200.8 mls/ hr DAILY INJ 01/31/25 10:00 UNV Folic Acid 1 mg DAILY PO 01/31/25 10:00 02/15/25 08:30 1 MG Multivitamins/ Minerals 1 tab DAILY PO 02/01/25 10:00 02/15/25 08:29 1 TAB Enteral Nutritional Formula 240 ml TID PO 02/02/25 14:00 02/15/25 13:31 240 ML Thiamine HCl 250 mg DAILY IV 02/03/25 10:00 02/08/25 09:59 UNV Metoprolol Tartrate 12.5 mg BID PO 02/02/25 22:00 02/15/25 08:29 12.5 MG Pantoprazole Sodium 40 mg BID IV 02/02/25 22:00 02/15/25 08:28 40 MG Sucralfate 1 gm QIDACHS PO 02/02/25 22:00 02/15/25 11:44 1 GM Lactulose 30 ml BID PO 02/03/25 10:45 02/15/25 08:34 30 ML Furosemide 20 mg DAILY PO 02/04/25 10:00 02/13/25 12:00 20 MG Spironolactone 25 mg DAILY PO 02/04/25 10:00 02/15/25 08:30 25 MG Acetaminophen/ Hydrocodone Bitart 1 tab Q4HPRN PRN PO 02/06/25 22:45 02/15/25 11:46 1 TAB Thiamine HCl 100 mg DAILY PO 02/10/25 10:00 02/15/25 08:30 100 MG Morphine Sulfate 2 mg Q6HPRN PRN IV 02/09/25 14:30 02/15/25 13:01 2 MG Melatonin 5 mg HS PRN PO 02/09/25 14:30 02/10/25 23:25 5 MG Cefepime HCl 50 ml @ 12.5 mls/hr Q8HR IV 02/13/25 22:00 02/15/25 12:57 12.5 MLS/HR objective GENERAL: Alert and oriented x 3. No acute distress. EYES: PERRL, EOMI. Anicteric. HENT: Moist mucous membranes. LUNGS: Clear to auscultation bilaterally. CARDIOVASCULAR: Regular rate and rhythm. ABDOMEN: Soft, nontender and nondistended. EXTREMITIES: No edema. NEUROLOGIC: No focal neurological deficits. SKIN: Warm, dry. laboratory and microbiology Laboratory Tests 02/15/25 05:21 Test 02/15/25 05:21 Range/Units Serum Glucose 133 H 74-106 mg/dL Problem List Atrioventricular roslyn reentry tachycardia. Questionable atrial fibrillation. Nonsustained ventricular tachycardia. Peripheral arterial disease status post bilateral lower extremity stents. Rule out structural heart disease. Hypertension. Hyperlipidemia. Severe anemia requiring PRBC transfusion. GI bleed with positive Hemoccult. Hypokalemia. Sepsis. Right foot osteomyelitis. Necrotizing wound to right foot. Assessment/Plan Continued all current supportive medical care. Morphine and [place] for pain management. Lipitor, Metoprolol. Diuretics with Lasix. IV antibiotics as ordered. GI prophylactics. Nitro SL. Additional plan as per the hospital course. Dietary Evaluation Review Recommendations by RD: Increase Calorie Intake, Protein Supplementation Comments: 1) Ensure Enlive 240ml QID (ordered per ONS protocol) 2) Jose A 1 pk BID (ordered per ONS protocol) 3) Continue current POC Expected Outcomes/Goals: wound healing to improve to meet 75% estimated energy & protein needs fu 3-5 days Interpretation of weight loss: >10% in 6 months Fluid Accumulation (Non Severe: Mild fluid retention Protein Calorie Malnutrition: Severe Is there a minimum of two crit: Yes Plan discussed with: Patient CC Plasma Assessment Blood Product Administration S: 15:10 DEWAYNE SAMANO MD February 15, 2025 13:43
[2025-02-15 20:00] VITALS: RESP 20; O2SAT 98
[2025-02-15 21:00] VITALS: BP 130/71; PULSE 105; RESP 19; TEMP 98.2; O2SAT 95
[2025-02-16] VITALS (7 sets, daily range): BP systolic 113–139; BP diastolic 57–70; PULSE 82–128; RESP 16–19; TEMP 97.8–99.2; O2SAT 94–97
[2025-02-16 06:56] LABS: Alkaline Phosphatase 96 U/L (46-116); Anion Gap 9 (5-15); BUN/Creatinine Ratio 26.8 (10.0-20.0); Blood Urea Nitrogen 11 mg/dL (9-23); Carbon Dioxide 24 mmol/L (20-31); Chloride 100 mmol/L (98-107)
[2025-02-16 06:57] LABS: Magnesium 1.8 mg/dL (1.6-2.6); Total Protein 6.7 g/dL (5.7-8.2)
[2025-02-16 06:59] LABS: Bilirubin, Total 0.3 mg/dL (0.2-1.0)
[2025-02-16 07:02] LABS: Alanine Aminotransferase 42 U/L (7-40); Aspartate Aminotransferase 45 U/L (13-40); Calcium 8.1 mg/dL (8.7-10.4); Glucose 113 mg/dL (74-106); Sodium 133 mmol/L (136-145)
[2025-02-16 08:12] LABS: Basophils # (auto) 0.1 10 ^3/uL (0-0.2); Basophils % (auto) 0.6 % (0.0-2.0); Eosinophils # (auto) 0.1 10 ^3/uL (0-0.8); Eosinophils % (auto) 0.8 % (0.0-7.0); Hemoglobin 7.5 g/dL (13.5-17.5); Lymphocytes # (auto) 1.6 10 ^3/uL (0.4-5.4); Lymphocytes % (auto) 16.6 % (10.0-50.0); Mean Corpuscular Hgb Conc. 31.2 g/dL (32.0-36.0); Mean Corpuscular Volume 86.7 fL (80.0-100.0); Monocytes # (auto) 1.1 10 ^3/uL (0-1.3); Monocytes % (auto) 12.1 % (0.0-12.0); Neutrophils # (auto) 6.6 10 ^3/uL (1.6-8.6); Neutrophils % (auto) 69.9 % (37.0-80.0); Platelet Count (auto) 402 10^3/uL (140-450); Red Blood Cells 2.77 10^6/uL (4.5-5.90); Red Cell Distribution Width 22.1 % (11.8-14.3); White Blood Cell 9.5 10^3/uL (4.4-10.8)
[2025-02-16] MEDS ORDERED: BACDST PO (11:27)
[2025-02-16] MEDS ORDERED: SUCR1TAB PO (11:27)
[2025-02-16] MEDS ORDERED: PANT40TA2 PO (11:27)
[2025-02-16] MEDS ORDERED: FURO20TA4 PO (11:31)
--- NOTE | 2025-02-16 12:46 | DVHDSRES ---
Discharge Summary Date of Admission Resident Creating Document: BUD ROY RESIDENT Jan 28, 2025 at 20:03 Date of Discharge: February 16, 2025 Admitting Diagnosis Severe anemia Labs/Diagnostic Data: Laboratory Results Test 02/16/25 05:11 02/14/25 21:00 02/08/25 05:24 02/07/25 05:51 White Blood Count 9.5 10^3/uL (4.4-10.8) Red Blood Count 2.77 10^6/uL (4.5-5.90) Hemoglobin 7.5 g/dL (13.5-17.5) Hematocrit 24.0 % (41.0-53.0) Mean Corpuscular Volume 86.7 fL (80.0-100.0) Mean Corpuscular Hemoglobin 27.0 pg (28.0-32.0) Mean Corpuscular Hemoglobin Concent 31.2 g/dL (32.0-36.0) Red Cell Distribution Width 22.1 % (11.8-14.3) Platelet Count 402 10^3/uL (140-450) Mean Platelet Volume 7.3 fL (6.9-10.8) Neutrophils (%) (Auto) 69.9 % (37.0-80.0) Lymphocytes (%) (Auto) 16.6 % (10.0-50.0) Monocytes (%) (Auto) 12.1 % (0.0-12.0) Eosinophils (%) (Auto) 0.8 % (0.0-7.0) Basophils (%) (Auto) 0.6 % (0.0-2.0) Neutrophils # (Auto) 6.6 10 ^3/uL (1.6-8.6) Lymphocytes # (Auto) 1.6 10 ^3/uL (0.4-5.4) Monocytes # (Auto) 1.1 10 ^3/uL (0-1.3) Eosinophils # (Auto) 0.1 10 ^3/uL (0-0.8) Basophils # (Auto) 0.1 10 ^3/uL (0-0.2) Nucleated Red Blood Cells 0.0 % Sodium Level 133 mmol/L (136-145) Potassium Level 4.0 mmol/L (3.5-5.1) Chloride Level 100 mmol/L (98-107) Carbon Dioxide Level 24 mmol/L (20-31) Anion Gap 9 (5-15) Blood Urea Nitrogen 11 mg/dL (9-23) Creatinine 0.41 mg/dL (0.700-1.30) Glomerular Filtration Rate Calc 119 mL/min (>90) BUN/Creatinine Ratio 26.8 (10.0-20.0) Serum Glucose 113 mg/dL (74-106) Calcium Level 8.1 mg/dL (8.7-10.4) Magnesium Level 1.8 mg/dL (1.6-2.6) Total Bilirubin 0.3 mg/dL (0.2-1.0) Aspartate Amino Transferase (AST) 45 U/L (13-40) Alanine Aminotransferase (ALT) 42 U/L (7-40) Alkaline Phosphatase 96 U/L (46-116) Total Protein 6.7 g/dL (5.7-8.2) Albumin 3.0 g/dL (3.2-4.8) Vancomycin Level Trough < 3.0 ug/mL (5-10) Gamma Glutamyl Transpeptidase 33 U/L (<73) Prothrombin Time 13.0 sec (9.3-11.8) Prothrombin Time INR 1.25 (0.9-1.15) Activated Partial Thromboplast Time 30.8 SEC (24.5-34.5) Hepatitis B Surface Antigen Negative (Negative) Test 02/04/25 05:02 02/03/25 11:30 02/03/25 08:40 02/02/25 16:55 Platelet Estimate Adequate Addison Cells Few Ammonia < 10 umol/L (11-32) Hepatitis C Antibody Positive (Negative) Direct Bilirubin 0.2 mg/dL (<0.3) HIV (1&2) Antibody Negative (Negative) B-Type Natriuretic Peptide 176.28 pg/mL (0-100) Test 01/31/25 13:20 01/30/25 15:00 01/30/25 12:14 01/30/25 11:20 Stool Occult Blood Positive (Negative) Stool Occult Blood Sample #3 (Negative) Haptoglobin 288 mg/dL (32-363) Lactate Dehydrogenase 278 U/L (120-246) Urine Color Light-red (Yellow) Urine Clarity Cloudy (Clear) Urine pH 6.0 (5.0-9.0) Urine Specific [place] 1.014 (1.001-1.035) Urine Protein 1+ (Negative) Urine Ketones Negative (Negative) Urine Blood 3+ /uL (Negative) Urine Nitrite Negative (Negative) Urine Bilirubin Negative (Negative) Urine Urobilinogen Normal mg/dL (Negative) Urine Leukocyte Esterase 1+ /uL (Negative) Urine RBC 7434 /hpf (0 - 3) Urine Microscopic WBC 35 /HPF (0-3) Urine Squamous Epithelial Cells Few /hpf (<5) Urine Bacteria Few /hpf (None Seen) Urine Mucus Few (None Seen) Urine Glucose Normal mg/dL (Normal) Urine Opiates Screen Neg (NEGATIVE) Urine Fentanyl Screen Neg (NEGATIVE) Urine Barbiturates Screen Neg (NEGATIVE) Urine Phencyclidine Screen Neg (NEGATIVE) Urine Amphetamines Screen Neg (NEGATIVE) Urine Benzodiazepines Screen Neg (NEGATIVE) Urine Cocaine Screen Neg (NEGATIVE) Urine Cannabinoids Screen Neg (NEGATIVE) Test 01/30/25 07:38 01/29/25 23:38 01/29/25 14:20 01/29/25 06:53 Lactic Acid Level 1.1 mmol/L (0.4-2.0) Reticulocyte Count (auto) 3.67 % (0.5-1.5) Fibrinogen 385 mg/dL (177-375) Iron Level 23 ug/dL (65-175) Total Iron Binding Capacity 239 ug/dL (250-425) Percent Iron Saturation 9.6 % (20-55) Ferritin 42.6 ng/mL (22-322) Vitamin B1 Level 174.6 nmol/L (66.5-200.0) Plasma/Serum Blood Alcohol < 3.0 mg/dL (<10) Hemoglobin A1c 5.3 % A1C (<5.7) Vitamin B12 Level 972 pg/mL (211-911) Folic Acid 8.67 ng/mL (>5.38) Thyroid Stimulating Hormone (TSH) 3.97 uIU/mL (0.55-4.78) Test 01/28/25 13:15 Polychromasia Slight Hypochromasia (manual) Slight Anisocytosis (manual) Slight Troponin I High Sensitivity 6 ng/L (</=54) Other Laboratory Tests 02/16/25 05:11 Brief Hx & Hospital Course: Alan Christiansen is a 64-year-old cachectic male with PMH of HTN, PAD, BPH, vasculopathy, Hrtt-sf-ffxmehpe stenosis of the juxtarenal abdominal aorta. Qgds-nh-apoqxlzs stenosis of the superior mesenteric. 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 Tvmf-yd-deyiuvrt stenosis of the left renal artery. High- grade stenosis or occlusion of the proximal right common iliac artery. and recent bilateral lower extremity stent placement presents to ED with chief complaint of generalized weakness since he left rehab center three days ago. He had his blood drawn at the rehab center for which has showed hemoglobin of 5.9. The patient was instructed to go to the nearest ER for blood transfusion. He denied bloody stool and hematemesis. He denies taking anticoagulant. The patient reports heavy alcohol abuse quit four months ago. The patient hemoglobin found to be 5.4 with lactic acid 4.3. Upon evaluating patient in ER bed 12, notable foul odor noted to his right foot with dressing in place. The dressing was saturated removed and multiple open sores with pus were present. The patient states that his right leg wound has been dressed two days ago and currently under treatment without being prescribed any antibiotics. The patient denies fever, chills, headache, dizziness, palpitation, chest pain, nausea, vomiting, abdominal pain, diarrhea, constipation and other associated symptoms. Patient was required hospital admission for further evaluation and management of severe anemia. Patient required 4 times blood transfusion with a PRBCs. CT Abdominal pelvis showed moderate ascites, liver cirrhosis, colonic diverticulosis Patient was suspected having GI bleed, consulted GI medical device sales consultant, advised Lasix 20 mg, spironolactone 25 mg, Protonix 40 mg IV b.i.d., Carafate b.i.d. outpatient follow up with the elective colonoscopy and EGD and treatment options for liver cirrhosis which diagnosed newly here. Due to multiple ulcers in the bilateral lower extremities we did bilateral lower extremity arterial Doppler which showed advanced evaluated peripheral artery disease with the no fluorescein right distal superficial femoral artery, right anterior tibial artery and dorsalis pedis artery. vascular surgeon evaluated the patient and advised CT angiogram of abdominal aorta which showed advanced atherosclerotic disease, mild to moderate stenosis of infrarenal abdominal aorta, high-grade stenosis or focal occlusion of proximal right common iliac artery, occluded right superficial femoral and popliteal arteries and in the left lower extremity moderate to high-grade stenosis of left common iliac artery, occluded distal left superficial femoral artery and popliteal arteries. And vascular surgeon decided to do aortogram with angioplasty of bilateral lower extremities patient does underwent multiple surgeries for angioplasty and underwent right lower extremity above-knee amputation and left lower extremity 3rd 4th 5th toe amputation( S/p right above-knee amputation, right and left leg arteriogram with angioplasty. S/p Aortogram, left leg arteriogram, angioplasty of the common femoral artery, superficial femoral artery, tibioperoneal trunk. Status post amputation of left 3rd, 4th and 5th toe amputation.). Wound culture revealed E coli, MRSA, Pseudomonas aeruginosa, Providencia stuartii. . Patient was placed on vancomycin, cefepime along with cilostazol and other home medications. sap [place] consultant evaluated the patient and advised to continue current management. Due to AFib and abnormal rhythm patient was continuously placed on telemetry. Eventually patient condition was improved, hemodynamically stable and in condition to be discharged to [facility] facility for possible rehabilitation with oral antibiotics for 2 weeks as discussed in medication section. Patient was advised about healthy lifestyle modifications including diet and exercise and to follow up with PCP, GI, cardio after the discharge. Pt is lying on bed General Appearance: Alert, Oriented X3, Cooperative, Not in acute distress HEENT: Atraumatic, Mucous membranes moist/pink Respiratory: Clear to auscultation, Normal air movement, No added sounds Cardiovascular: Regular rate, Normal S1, Normal S2, No murmurs Abdominal: Active bowel sounds, Soft, no distention, no tenderness Extremities:Right above-knee amputation, left foot 3rd, 4th, 5th toe amputation Skin: left foot gangrenous changes on the toes and some part of the dorsum of the foot Neuro: Normal speech, sensorimotor deficits none Psych/Mental Status: Mental status NL, Mood NL Nurse was there as sharperone during examination Operations or Procedures Operative Report - 2 Report Details Date: 02/14/25 Preop Diagnosis: Left leg severe peripheral vascular disease Postop Diagnosis: Same. Surgeon: Wyatt Cali MD Anesthesiologist: Mac Anesthesia: Mac, Regional Consent: The patient was informed of the risks and benefits of the procedure. These include but are not limited to complications of anesthesia, postoperative infection, incomplete relief of symptoms, recurrence of symptoms, damage to blood vessels, nerves and tendons, deep venous thrombosis, pulmonary embolism and possible need for repeat surgery in the future. Estimated Blood Loss: 10ml Findings: Gangrene left 3rd 4th 5th toe Indications for Surgery: Gangrene and will have the head 4th 5th toe Name of Procedure Performed Amputation of the left 3rd 4th 5th toe metatarsal Procedure Details Procedure Details: Patient was identified in the preop hold area is being Mr. Gideon perez. He was consented and preopped by myself he was brought back to the operating room placed in the operating table in supine position after adequate induction of anesthesia antibiotics and time-out the left foot was prepped and draped in normal surgical fashion elliptical incision was made around the 3rd 4th 5th toe bases the toes were the amputated there was healthy bleeding noted at the tissues this was controlled with Bovie cauterization the 3rd 4th and 5th metatarsal bone heads were all freed of any tissue and then were transected with a bone saw each approximately 1 cm length. Once the three toes and metatarsal heads were removed the wound was irrigated out bleeding was controlled the wound was then closed with a dermal layer of interrupted 2-0 Vicryl sutures followed by skin closure with interrupted 2-0 nylon sutures. Sterile dressing was applied. Patient tolerated procedure was taken to recovery room in a stable condition sponge and needle counts were correct. Specimen: Third 4th and 5th toe metatarsal heads Operative Report - 2 Report Details Date: 02/13/25 Preop Diagnosis: Left leg severe peripheral vascular disease Postop Diagnosis: Same. Surgeon: Wyatt Cali MD Anesthesiologist: Anton Anesthesia: Mac, Regional Consent: The patient was informed of the risks and benefits of the procedure. These include but are not limited to complications of anesthesia, postoperative infection, incomplete relief of symptoms, recurrence of symptoms, damage to blood vessels, nerves and tendons, deep venous thrombosis, pulmonary embolism and possible need for repeat surgery in the future. Name of Procedure Performed Aortogram, left leg arteriogram, angioplasty of the common femoral artery, superficial femoral artery, tibioperoneal trunk Operative Report - 2 Report Details Date: 02/09/25 Preop Diagnosis: Right foot gangrene severe peripheral vascular disease Postop Diagnosis: Same. Surgeon: Wyatt Cali MD Anesthesiologist: Anton Anesthesia: Mac, Regional Consent: The patient was informed of the risks and benefits of the procedure. These include but are not limited to complications of anesthesia, postoperative infection, incomplete relief of symptoms, recurrence of symptoms, damage to blood vessels, nerves and tendons, deep venous thrombosis, pulmonary embolism and possible need for repeat surgery in the future. Name of Procedure Performed Right above knee amputation Procedure Details Procedure Details: Patient was identified in the preop hold area is being Mr. Gideon perez. He was consented and preopped by myself he was brought back to the hospital laboratory technician placed on the operative table in the supine position after adequate induction of anesthesia antibiotics and time-out the right leg was prepped and draped in normal surgical fashion a fishmouth incision was made above the knee. Bovie cauterization was used for hemostasis. Dissection was taken down through the quadriceps the saphenous vein was identified and ligated proximally and distally with 4-0 silk sutures. The occluded SFA and stent was encountered this was transected the femoral vein was then isolated and tied off with 0 silk sutures. The muscles of the hamstring were all divided the bone of the femur was freed up of all muscle bone saw was used to transect the femur specimen was sent off for pathology. The right leg was then irrigated and the wound was then closed after hemostasis was obtained with Bovie cauterization the deep layers were closed with 2-0 Vicryl sutures followed by a dermal layer of 2-0 Vicryl sutures followed by skin closure with [place]. Patient tolerated procedure well patient was taken to recovery room in stable condition and sponge and needle counts were correct. Operative Report - 2 Report Details Date: 02/06/25 Preop Diagnosis: Right foot gangrene severe peripheral vascular disease Postop Diagnosis: Same. Surgeon: Wyatt Cali MD Anesthesiologist: Anton Anesthesia: Mac Consent: The patient was informed of the risks and benefits of the procedure. These include but are not limited to complications of anesthesia, postoperative infection, incomplete relief of symptoms, recurrence of symptoms, damage to blood vessels, nerves and tendons, deep venous thrombosis, pulmonary embolism and possible need for repeat surgery in the future. Name of Procedure Performed Aortogram with right lower extremity arteriogram right common iliac artery angioplasty CT Abdominal pelvis IMPRESSION: 1. Limited examination due to motion artifact, beam hardening artifact, and ascites. 2. Moderate ascites. 3. Cirrhotic liver morphology. 4. Nonspecific nondilated fluid-filled small bowel loops. Findings may be seen with ileus or enteritis in the appropriate clinical setting. No small bowel obstruction. 5. Aviles catheter in the bladder. Bladder is moderately distended. 6. Colonic diverticulosis. Limited evaluation for diverticulitis due to the reasons described above. 7. Small bilateral pleural effusions with overlying compressive atelectasis. 8. Additional findings as described above. CT ANGIO ABD AORTA W RUN OFF Impression: Vascular: 1. Advanced atherosclerotic disease. Leya-cp-yvkzblda stenosis of the infrarenal abdominal aorta partially imaged. Right Lower Extremity: Limited by positioning. 1. High-grade stenosis or focal occlusion of the proximal right common iliac artery. 2. Occluded right superficial femoral and popliteal arteries. 3. 2-vessel runoff to the right foot via the anterior tibial and peroneal arteries. Left Lower Extremity: 1. Moderate high-grade stenosis of the left common iliac artery. 2. Occluded distal left superficial femoral artery and popliteal arteries. 3. Patent 3 vessel runoff Condition at Discharge: Good Final Diagnosis/Problems List # Sepsis likely from right foot cellulitis # Right foot abscess, wet gangrene, osteomyelitis, cellulitis with a black eschar, necrotizing soft tissue infection, S/P right above-knee amputation # B/L Peripheral arterial disease s/p aortogram, angiogram with angioplasty # Left foot toe gangrenous Status post 3rd, 4th, 5th amputation # Severe anemia, normocytic, hypochromic, likely iron deficiency v/s anemia of chronic disease S/P BT - pRBC # likely alcoholic liver cirrhosis in compensation # history of hepatitis-C virus infection # Wernicke encephalopathy likely from alcoholism # Metabolic encephalopathy/toxic encephalopathy # Hiatal hernia with grade a erosive esophagitis # mild gastroduodenitis # Acute retention of urine likely due to BPH # BPH # A-Fib/AV roslyn reentry tachycardia/paroxysmal SVT # HLD # HTN Discharge Disposition: [facility] Facility Discharge Instruct/Medications Diet: Consistent carbohydrate, Cardiac 2g Na,low cholest Activity: No Restrictions, As Tolerated Follow Up/Referral: PCP GI for liver workup Wound care Cardio for afib Medications: Bactrim DS oral 2 times daily for 2 weeks Protonix 40 mg oral 1 time daily for 60 days Carafate 1 g oral 3 times daily for 30 days Discharge Statement: "Patient was advised to return to the ER or call 911 if any headaches, dizziness, shortness of breath, chest pain, abdominal pain, bleeding, fevers, or worsening of medical condition. Patient was counseled about treatment plan, medications, possible side effects, patient�verbalized understanding. All questions were answered to the best of my ability. This discharge took greater then 30 minutes in planning, reviewing documentation, counseling the patient, and discussing with other team members." ASSESSMENT ASSESSMENT Assessment # Sepsis likely from right foot cellulitis # Right foot abscess, wet gangrene, osteomyelitis, cellulitis with a black eschar, necrotizing soft tissue infection, S/P right above-knee amputation # B/L Peripheral arterial disease s/p aortogram, angiogram with angioplasty # Left foot toe gangrenous Status post 3rd, 4th, 5th amputation # Severe anemia, normocytic, hypochromic, likely iron deficiency v/s anemia of chronic disease S/P BT - pRBC # likely alcoholic liver cirrhosis in compensation # history of hepatitis-C virus infection # Wernicke encephalopathy likely from alcoholism # Metabolic encephalopathy/toxic encephalopathy # Hiatal hernia with grade a erosive esophagitis # mild gastroduodenitis # Acute retention of urine likely due to BPH # BPH # A-Fib/AV roslyn reentry tachycardia/paroxysmal SVT # HLD # HTN Date of Service: February 16, 2025 Billing Provider: DOLORES KAT MD Common Visit Codes: 47949-FYM/OBS DISCH DAY >30min ADDENDUM ADDENDUM ADDENDUM dc home with home PT. other plan the same. BUD ROY RESIDENT February 16, 2025 12:46 DOLORES KAT MD February 18, 2025 17:27
[2025-02-16] MEDS: SULFAMETHOX W/TRIMETH(800/160MG) DS TAB PO SCH (21:24)
--- NOTE | 2025-02-16 23:43 | DVHPN2 ---
Progress Note - Dictate Date Seen: February 16, 2025 Has the PT tested + for MRSA If YES, has PT been informed?: No Medical Necessity Reason Pt with a Central, PICC or Fol: No The following are medically ne: Aviles Catheter Subjective Patient was seen and evaluated in follow up. Patient complains of LLE pain at amputation site. HGB 7.5, HCT 24, NA 133, CA 8.1, AST 45, ALT 42. Telemetry reviewed. vital signs Vital Sign Date Time Temp Pulse Resp B/P (MAP) Pulse Ox O2 Delivery O2 Flow Rate FiO2 02/16/25 09:28 112/52 02/16/25 09:25 99 02/16/25 09:00 98.2 16 96 98.2 02/16/25 08:00 Room Air* 0 21 Total Intake and Output 02/15/25 02/15/25 02/16/25 15:00 23:00 07:00 Intake Total 900 ml 50 ml Output Total 200 ml Balance 700 ml 50 ml medications Current Medications Medications Dose Ordered Sig/Omar Route Start Time Stop Time Status Last Admin Dose Admin Ascorbic Acid 500 mg BID PO 01/28/25 22:00 02/16/25 09:24 500 MG Acetaminophen 650 mg Q6HP PRN PO 01/28/25 19:00 02/16/25 06:27 650 MG Nitroglycerin 0.4 mg Q5MINP PRN SL 01/28/25 19:00 Atorvastatin Calcium 80 mg HS PO 01/28/25 22:00 02/15/25 21:22 80 MG Cilostazol 100 mg BID PO 01/28/25 22:00 02/16/25 09:25 100 MG Minoxidil 5 mg DAILY PO 01/29/25 10:00 02/16/25 09:28 5 MG Nicotine 1 patch DAILY TD 01/29/25 10:00 02/16/25 09:40 1 PATCH Tamsulosin HCl 0.4 mg DAILY PO 01/29/25 10:00 02/16/25 09:40 0.4 MG Haloperidol Lactate 5 mg Q8HP PRN IM 01/29/25 17:00 01/30/25 22:01 5 MG Folic Acid 1 mg/ Dextrose 50.2 ml @ 200.8 mls/ hr DAILY INJ 01/31/25 10:00 UNV Folic Acid 1 mg DAILY PO 01/31/25 10:00 02/16/25 09:28 1 MG Multivitamins/ Minerals 1 tab DAILY PO 02/01/25 10:00 02/16/25 09:24 1 TAB Enteral Nutritional Formula 240 ml TID PO 02/02/25 14:00 02/16/25 06:01 240 ML Thiamine HCl 250 mg DAILY IV 02/03/25 10:00 02/08/25 09:59 UNV Metoprolol Tartrate 12.5 mg BID PO 02/02/25 22:00 02/16/25 09:25 12.5 MG Pantoprazole Sodium 40 mg BID IV 02/02/25 22:00 02/16/25 09:24 40 MG Sucralfate 1 gm QIDACHS PO 02/02/25 22:00 02/16/25 06:01 1 GM Lactulose 30 ml BID PO 02/03/25 10:45 02/16/25 09:28 30 ML Furosemide 20 mg DAILY PO 02/04/25 10:00 02/16/25 09:25 20 MG Spironolactone 25 mg DAILY PO 02/04/25 10:00 02/16/25 09:40 25 MG Thiamine HCl 100 mg DAILY PO 02/10/25 10:00 02/16/25 09:40 100 MG Morphine Sulfate 2 mg Q6HPRN PRN IV 02/09/25 14:30 02/16/25 08:24 2 MG Melatonin 5 mg HS PRN PO 02/09/25 14:30 02/10/25 23:25 5 MG Cefepime HCl 50 ml @ 12.5 mls/hr Q8HR IV 02/13/25 22:00 02/16/25 05:17 12.5 MLS/HR Trimethoprim/ Sulfamethoxazole 1 tab Q12HR PO 02/16/25 22:00 objective GENERAL: Alert and oriented x 3. No acute distress. EYES: PERRL, EOMI. Anicteric. HENT: Moist mucous membranes. LUNGS: Clear to auscultation bilaterally. CARDIOVASCULAR: Regular rate and rhythm. ABDOMEN: Soft, nontender and nondistended. EXTREMITIES: No edema. NEUROLOGIC: No focal neurological deficits. SKIN: Warm, dry. laboratory and microbiology Laboratory Tests 02/16/25 05:11 Test 02/16/25 05:11 Range/Units Serum Glucose 113 H 74-106 mg/dL Problem List Atrioventricular roslyn reentry tachycardia. Questionable atrial fibrillation. Nonsustained ventricular tachycardia. Peripheral arterial disease status post bilateral lower extremity stents. Rule out structural heart disease. Hypertension. Hyperlipidemia. Severe anemia requiring PRBC transfusion. GI bleed with positive Hemoccult. Hypokalemia. Sepsis. Right foot osteomyelitis. Necrotizing wound to right foot. Assessment/Plan Continued all current supportive medical care. Morphine and [place] for pain management. Lipitor, Metoprolol. Diuretics with Lasix. IV antibiotics as ordered. GI prophylactics. Nitro SL. Additional plan as per the hospital course. Dietary Evaluation Review Recommendations by RD: Increase Calorie Intake, Protein Supplementation Comments: 1) Ensure Enlive 240ml QID (ordered per ONS protocol) 2) Jose A 1 pk BID (ordered per ONS protocol) 3) Continue current POC Expected Outcomes/Goals: wound healing to improve to meet 75% estimated energy & protein needs fu 3-5 days Interpretation of weight loss: >10% in 6 months Fluid Accumulation (Non Severe: Mild fluid retention Protein Calorie Malnutrition: Severe Is there a minimum of two crit: Yes Plan discussed with: Patient CC Plasma Assessment Blood Product Administration S: 15:10 DEWAYNE SAMANO MD February 16, 2025 12:06
[2025-02-17] VITALS (8 sets, daily range): BP systolic 102–139; BP diastolic 49–70; PULSE 68–113; RESP 16–20; TEMP 97.9–98.7; O2SAT 94–97
[2025-02-17] MEDS: PANTOPRAZOLE 40 MG TAB PO SCH (14:12)
--- NOTE | 2025-02-17 14:36 | DVHPNRES ---
Progress Note Date Seen: February 17, 2025 Resident Creating Document: BUD ROY RESIDENT Has the PT tested + for MRSA If YES, has PT been informed?: No Medical Necessity Reason Pt with a Central, PICC or Fol: No The following are medically ne: Aviles Catheter Subjective Review of Systems Patient seen and examined at the bedside. Patient reported no new complaints at this time. Pending discharge due to delay in placement. Objective vital signs Vital Sign Date Time Temp Pulse Resp B/P (MAP) Pulse Ox O2 Delivery O2 Flow Rate FiO2 02/17/25 13:35 102 18 121/76 02/17/25 12:10 98.2 97 98.2 02/16/25 20:00 Room Air* 0 21 Total Intake and Output 02/16/25 02/16/25 02/17/25 15:00 23:00 07:00 Intake Total 50 ml 1450 ml 456.25 ml Output Total 1700 ml 600 ml 1000 ml Balance -1650 ml 850 ml -543.75 ml medications Current Medications Medications Dose Ordered Sig/Omar Route Start Time Stop Time Status Last Admin Dose Admin Ascorbic Acid 500 mg BID PO 01/28/25 22:00 02/17/25 09:37 500 MG Acetaminophen 650 mg Q6HP PRN PO 01/28/25 19:00 02/17/25 03:29 650 MG Nitroglycerin 0.4 mg Q5MINP PRN SL 01/28/25 19:00 Atorvastatin Calcium 80 mg HS PO 01/28/25 22:00 02/16/25 21:23 80 MG Cilostazol 100 mg BID PO 01/28/25 22:00 02/17/25 09:37 100 MG Minoxidil 5 mg DAILY PO 01/29/25 10:00 02/17/25 09:47 5 MG Nicotine 1 patch DAILY TD 01/29/25 10:00 02/17/25 09:40 1 PATCH Tamsulosin HCl 0.4 mg DAILY PO 01/29/25 10:00 02/17/25 09:36 0.4 MG Haloperidol Lactate 5 mg Q8HP PRN IM 01/29/25 17:00 01/30/25 22:01 5 MG Folic Acid 1 mg/ Dextrose 50.2 ml @ 200.8 mls/ hr DAILY INJ 01/31/25 10:00 UNV Folic Acid 1 mg DAILY PO 01/31/25 10:00 02/17/25 09:37 1 MG Multivitamins/ Minerals 1 tab DAILY PO 02/01/25 10:00 02/17/25 09:36 1 TAB Enteral Nutritional Formula 240 ml TID PO 02/02/25 14:00 02/17/25 14:13 240 ML Thiamine HCl 250 mg DAILY IV 02/03/25 10:00 02/08/25 09:59 UNV Metoprolol Tartrate 12.5 mg BID PO 02/02/25 22:00 02/17/25 09:39 12.5 MG Sucralfate 1 gm QIDACHS PO 02/02/25 22:00 02/17/25 13:32 1 GM Lactulose 30 ml BID PO 02/03/25 10:45 02/17/25 09:39 30 ML Furosemide 20 mg DAILY PO 02/04/25 10:00 02/17/25 09:38 20 MG Spironolactone 25 mg DAILY PO 02/04/25 10:00 02/17/25 09:39 25 MG Thiamine HCl 100 mg DAILY PO 02/10/25 10:00 02/17/25 09:36 100 MG Morphine Sulfate 2 mg Q6HPRN PRN IV 02/09/25 14:30 02/17/25 13:35 2 MG Melatonin 5 mg HS PRN PO 02/09/25 14:30 02/16/25 20:16 5 MG Cefepime HCl 50 ml @ 12.5 mls/hr Q8HR IV 02/13/25 22:00 02/17/25 06:00 12.5 MLS/HR Trimethoprim/ Sulfamethoxazole 1 tab Q12HR PO 02/16/25 22:00 02/17/25 09:37 1 TAB Pantoprazole Sodium 40 mg DAILY@0600 PO 02/17/25 08:15 02/17/25 14:12 40 MG Examination Pt is lying on bed General Appearance: Alert, Oriented X3, Cooperative, Not in acute distress HEENT: Atraumatic, Mucous membranes moist/pink Respiratory: Clear to auscultation, Normal air movement, No added sounds Cardiovascular: Regular rate, Normal S1, Normal S2, No murmurs Abdominal: Active bowel sounds, Soft, no distention, no tenderness Extremities:Right above-knee amputation, left foot 3rd, 4th, 5th toe amputation Skin: left foot gangrenous changes on the toes and some part of the dorsum of the foot Neuro: Normal speech, sensorimotor deficits none Psych/Mental Status: Mental status NL, Mood NL Nurse was there as radhane during examination laboratory and microbiology Laboratory Tests 02/16/25 05:11 Test 02/16/25 05:11 Range/Units Serum Glucose 113 H 74-106 mg/dL Microbiology Date/Time Source Procedure Growth Status 02/03/25 08:40 Blood Blood Culture - Final NO GROWTH AFTER 5 DAYS OF INCUBATION. Complete 01/30/25 18:49 Foot Right Gram Stain - Final Complete 01/30/25 18:49 Wound Culture - Final Pseudomonas aeruginosa Stenotrophomonas maltophilia Enterococcus faecalis Methicillin Resistant S.aureus Complete 01/30/25 11:20 Voided Urine Urine Culture - Final Complete Labs and/or images reviewed: Labs reviewed by me, Image(s) reviewed by me Problem List/Assessment/Plan Problem List/Assessment/Plan # Sepsis likely from right foot cellulitis # Right foot abscess, wet gangrene, osteomyelitis, cellulitis with a black eschar, necrotizing soft tissue infection, S/P right above-knee amputation # B/L Peripheral arterial disease s/p aortogram, angiogram with angioplasty # Left foot toe gangrenous - CT angio showed advanced atherosclerotic disease, [id number] stenosis on infrarenal abdominal aorta, stenosis of right and left common iliac artery, right & left superficial femoral and popliteal artery, - S/p right above-knee amputation, right and left leg arteriogram with angioplasty. - S/p Aortogram, left leg arteriogram, angioplasty of the common femoral artery, superficial femoral artery, tibioperoneal trunk. - Status post amputation of left 3rd, 4th and 5th toe amputation. - Wound culture revealed E coli, MRSA, Pseudomonas aeruginosa, Providencia stuartii. -continue cefepime and Bactrim # Severe anemia, normocytic, hypochromic, likely iron deficiency v/s anemia of chronic disease S/P BT - pRBC # likely alcoholic liver cirrhosis in compensation # history of hepatitis-C virus infection # Wernicke encephalopathy likely from alcoholism # Metabolic encephalopathy/toxic encephalopathy # Hiatal hernia with grade a erosive esophagitis # mild gastroduodenitis - monitor CBC - transfuse if hemoglobin is less than 7 - Iron supplement - thiamine, folic acid supplements - Lasix 20 mg, spironolactone 25 mg, Protonix 40 mg IV b.i.d., Carafate b.i.d. - outpatient follow up for EGD and colonoscopy # Acute retention of urine likely due to BPH # BPH - tamsulosin # A-Fib/AV roslyn reentry tachycardia/paroxysmal SVT - continue telemetry monitoring - rate controlled with metoprolol # HLD - Lipitor # HTN - continuously monitor - continue metoprolol tartrate SCDs for now Protonix NPO for now, resume diet after the procedure today Goals of care discussed with the patient for more than 27 minutes: Full code status Case discussed with Dr. Cotton, patient and nurse. Pending SNF placement. Plan discussed with: Patient My Orders My Orders Orders - BUD ROY RESIDENT Procedure Category Date Status Time Cleanse Wound With DELROY 02/16/25 In Process Mild Soap A 12:00 * Dietary Consult CONS 02/16/25 Transmitted 12:00 Pantoprazole Tablet PHA 02/17/25 In Process (Protonix Tablet) 08:15 Dietary Evaluation Review Recommendations by RD: Increase Calorie Intake, Protein Supplementation Comments: 1) Ensure Enlive 240ml QID (ordered per ONS protocol) 2) Jose A 1 pk BID (ordered per ONS protocol) 3) Continue current POC Expected Outcomes/Goals: wound healing to improve to meet 75% estimated energy & protein needs fu 3-5 days Interpretation of weight loss: >10% in 6 months Fluid Accumulation (Non Severe: Mild fluid retention Protein Calorie Malnutrition: Severe Is there a minimum of two crit: Yes CC Plasma Assessment Blood Product Administration S: 15:10 BUD ROY RESIDENT February 17, 2025 14:36
--- NOTE | 2025-02-17 18:00 | DVHPN2 ---
Progress Note - Dictate Date Seen: February 17, 2025 Has the PT tested + for MRSA If YES, has PT been informed?: No Medical Necessity Reason Pt with a Central, PICC or Fol: No The following are medically ne: Aviles Catheter Subjective Patient was seen and evaluated in follow up. Patient is complaining of discomfort at amputation site. Pending SNF placement. Telemetry reviewed. vital signs Vital Sign Date Time Temp Pulse Resp B/P (MAP) Pulse Ox O2 Delivery O2 Flow Rate FiO2 02/17/25 09:47 122/63 02/17/25 09:39 105 02/17/25 08:10 98.3 16 96 98.3 02/16/25 20:00 Room Air* 0 21 Total Intake and Output 02/16/25 02/16/25 02/17/25 15:00 23:00 07:00 Intake Total 50 ml 1450 ml 456.25 ml Output Total 1700 ml 600 ml 1000 ml Balance -1650 ml 850 ml -543.75 ml medications Current Medications Medications Dose Ordered Sig/Omar Route Start Time Stop Time Status Last Admin Dose Admin Ascorbic Acid 500 mg BID PO 01/28/25 22:00 02/17/25 09:37 500 MG Acetaminophen 650 mg Q6HP PRN PO 01/28/25 19:00 02/17/25 03:29 650 MG Nitroglycerin 0.4 mg Q5MINP PRN SL 01/28/25 19:00 Atorvastatin Calcium 80 mg HS PO 01/28/25 22:00 02/16/25 21:23 80 MG Cilostazol 100 mg BID PO 01/28/25 22:00 02/17/25 09:37 100 MG Minoxidil 5 mg DAILY PO 01/29/25 10:00 02/17/25 09:47 5 MG Nicotine 1 patch DAILY TD 01/29/25 10:00 02/17/25 09:40 1 PATCH Tamsulosin HCl 0.4 mg DAILY PO 01/29/25 10:00 02/17/25 09:36 0.4 MG Haloperidol Lactate 5 mg Q8HP PRN IM 01/29/25 17:00 01/30/25 22:01 5 MG Folic Acid 1 mg/ Dextrose 50.2 ml @ 200.8 mls/ hr DAILY INJ 01/31/25 10:00 UNV Folic Acid 1 mg DAILY PO 01/31/25 10:00 02/17/25 09:37 1 MG Multivitamins/ Minerals 1 tab DAILY PO 02/01/25 10:00 02/17/25 09:36 1 TAB Enteral Nutritional Formula 240 ml TID PO 02/02/25 14:00 02/17/25 06:03 240 ML Thiamine HCl 250 mg DAILY IV 02/03/25 10:00 02/08/25 09:59 UNV Metoprolol Tartrate 12.5 mg BID PO 02/02/25 22:00 02/17/25 09:39 12.5 MG Sucralfate 1 gm QIDACHS PO 02/02/25 22:00 02/17/25 06:00 1 GM Lactulose 30 ml BID PO 02/03/25 10:45 02/17/25 09:39 30 ML Furosemide 20 mg DAILY PO 02/04/25 10:00 02/17/25 09:38 20 MG Spironolactone 25 mg DAILY PO 02/04/25 10:00 02/17/25 09:39 25 MG Thiamine HCl 100 mg DAILY PO 02/10/25 10:00 02/17/25 09:36 100 MG Morphine Sulfate 2 mg Q6HPRN PRN IV 02/09/25 14:30 02/16/25 21:26 2 MG Melatonin 5 mg HS PRN PO 02/09/25 14:30 02/16/25 20:16 5 MG Cefepime HCl 50 ml @ 12.5 mls/hr Q8HR IV 02/13/25 22:00 02/17/25 06:00 12.5 MLS/HR Trimethoprim/ Sulfamethoxazole 1 tab Q12HR PO 02/16/25 22:00 02/17/25 09:37 1 TAB Pantoprazole Sodium 40 mg DAILY@0600 PO 02/17/25 08:15 objective GENERAL: Alert and oriented x 3. No acute distress. EYES: PERRL, EOMI. Anicteric. HENT: Moist mucous membranes. LUNGS: Clear to auscultation bilaterally. CARDIOVASCULAR: Regular rate and rhythm. ABDOMEN: Soft, nontender and nondistended. EXTREMITIES: No edema. NEUROLOGIC: No focal neurological deficits. SKIN: Warm, dry. laboratory and microbiology Laboratory Tests 02/16/25 05:11 Test 02/16/25 05:11 Range/Units Serum Glucose 113 H 74-106 mg/dL Problem List Atrioventricular roslyn reentry tachycardia. Questionable atrial fibrillation. Nonsustained ventricular tachycardia. Peripheral arterial disease status post bilateral lower extremity stents. Rule out structural heart disease. Hypertension. Hyperlipidemia. Severe anemia requiring PRBC transfusion. GI bleed with positive Hemoccult. Hypokalemia. Sepsis. Right foot osteomyelitis. Necrotizing wound to right foot. Assessment/Plan Continued all current supportive medical care. Morphine and [place] for pain management. Lipitor, Metoprolol. Diuretics with Lasix. IV antibiotics as ordered. GI prophylactics. Nitro SL. Additional plan as per the hospital course. Dietary Evaluation Review Recommendations by RD: Increase Calorie Intake, Protein Supplementation Comments: 1) Ensure Enlive 240ml QID (ordered per ONS protocol) 2) Jose A 1 pk BID (ordered per ONS protocol) 3) Continue current POC Expected Outcomes/Goals: wound healing to improve to meet 75% estimated energy & protein needs fu 3-5 days Interpretation of weight loss: >10% in 6 months Fluid Accumulation (Non Severe: Mild fluid retention Protein Calorie Malnutrition: Severe Is there a minimum of two crit: Yes Plan discussed with: Patient CC Plasma Assessment Blood Product Administration S: 15:10 DEWAYNE SAMANO MD February 17, 2025 11:47
[2025-02-18] VITALS (9 sets, daily range): BP systolic 88–128; BP diastolic 57–64; PULSE 62–113; RESP 16–18; TEMP 97.9–98.4; O2SAT 94–98
--- NOTE | 2025-02-18 16:35 | DVHPN2 ---
Progress Note - Dictate Date Seen: February 18, 2025 Has the PT tested + for MRSA If YES, has PT been informed?: No Medical Necessity Reason Pt with a Central, PICC or Fol: No The following are medically ne: Aviles Catheter Subjective No new complaints; overall patient feels better Patient is S/P right above-knee amputation SP amputation of left 3rd 4th and 5th metatarsals today on IV antibiotics chronic leg wound Nurse reports the patient is noncompliant and is ordering outside food He is also going out AMA to smoke via wheelchair vital signs Vital Sign Date Time Temp Pulse Resp B/P (MAP) Pulse Ox O2 Delivery O2 Flow Rate FiO2 02/18/25 12:09 62 18 116/58 02/18/25 09:00 97.9 96 97.9 02/18/25 08:00 Nasal Cannula* 2 28 Total Intake and Output 02/17/25 02/17/25 02/18/25 15:00 23:00 07:00 Intake Total 720 ml 237 ml 100 ml Output Total 470 ml 1000 ml Balance 720 ml -233 ml -900 ml medications Current Medications Medications Dose Ordered Sig/Omar Route Start Time Stop Time Status Last Admin Dose Admin Ascorbic Acid 500 mg BID PO 01/28/25 22:00 02/18/25 09:35 500 MG Acetaminophen 650 mg Q6HP PRN PO 01/28/25 19:00 02/18/25 04:44 650 MG Nitroglycerin 0.4 mg Q5MINP PRN SL 01/28/25 19:00 Atorvastatin Calcium 80 mg HS PO 01/28/25 22:00 02/17/25 21:31 80 MG Cilostazol 100 mg BID PO 01/28/25 22:00 02/18/25 09:36 100 MG Minoxidil 5 mg DAILY PO 01/29/25 10:00 02/18/25 09:38 5 MG Nicotine 1 patch DAILY TD 01/29/25 10:00 02/18/25 09:38 1 PATCH Tamsulosin HCl 0.4 mg DAILY PO 01/29/25 10:00 02/18/25 09:36 0.4 MG Haloperidol Lactate 5 mg Q8HP PRN IM 01/29/25 17:00 01/30/25 22:01 5 MG Folic Acid 1 mg/ Dextrose 50.2 ml @ 200.8 mls/ hr DAILY INJ 01/31/25 10:00 UNV Folic Acid 1 mg DAILY PO 01/31/25 10:00 02/18/25 09:36 1 MG Multivitamins/ Minerals 1 tab DAILY PO 02/01/25 10:00 02/18/25 09:35 1 TAB Enteral Nutritional Formula 240 ml TID PO 02/02/25 14:00 02/18/25 14:00 240 ML Thiamine HCl 250 mg DAILY IV 02/03/25 10:00 02/08/25 09:59 UNV Metoprolol Tartrate 12.5 mg BID PO 02/02/25 22:00 02/18/25 09:37 12.5 MG Sucralfate 1 gm QIDACHS PO 02/02/25 22:00 02/18/25 16:16 1 GM Lactulose 30 ml BID PO 02/03/25 10:45 02/17/25 21:30 30 ML Furosemide 20 mg DAILY PO 02/04/25 10:00 02/18/25 09:37 20 MG Spironolactone 25 mg DAILY PO 02/04/25 10:00 02/18/25 09:37 25 MG Thiamine HCl 100 mg DAILY PO 02/10/25 10:00 02/18/25 09:36 100 MG Morphine Sulfate 2 mg Q6HPRN PRN IV 02/09/25 14:30 02/18/25 11:39 2 MG Melatonin 5 mg HS PRN PO 02/09/25 14:30 02/16/25 20:16 5 MG Cefepime HCl 50 ml @ 12.5 mls/hr Q8HR IV 02/13/25 22:00 02/18/25 14:42 12.5 MLS/HR Trimethoprim/ Sulfamethoxazole 1 tab Q12HR PO 02/16/25 22:00 02/18/25 09:35 1 TAB Pantoprazole Sodium 40 mg DAILY@0600 PO 02/17/25 08:15 02/18/25 05:40 40 MG objective General examination- patient is awake , alert HEENT- PEERLA, no acute nasal discharge Cardiovascular- S1-S2 audible, rate and rhythm regular, no murmur Respiratory- CTAB, no wheeze or rhonchi Gastrointestinal-nontender, bowel sound+. Nondistended Musculoskeletal-no acute joint swelling or tenderness or redness Lower extremity- status post right above-knee amputation Neurological- cranial nerves intact, no acute dysarthria or dysphagia laboratory and microbiology Laboratory Tests 02/16/25 05:11 Test 02/16/25 05:11 Range/Units Serum Glucose 113 H 74-106 mg/dL Problems(with codes): (1) Hepatitis C antibody positive (2) Cirrhosis (3) Necrotizing soft tissue infection (4) Wet gangrene (5) Arterial occlusion (6) Osteomyelitis (7) Symptomatic anemia Prognosis Prognosis Continue supportive care from GI point of view Protonix 40 mg IV q.12 hours -Carafate 1 g p.o. twice a day billet worker is arranging discharge planning -Outpatient follow up with the GI for to discuss about liver cirrhosis and elective colonoscopy once patient is recovered from his current illness Dietary Evaluation Review Recommendations by RD: Increase Calorie Intake, Protein Supplementation Comments: 1) Ensure Enlive 240ml QID (ordered per ONS protocol) 2) Jose A 1 pk BID (ordered per ONS protocol) 3) Continue current POC Expected Outcomes/Goals: wound healing to improve to meet 75% estimated energy & protein needs fu 3-5 days Interpretation of weight loss: >10% in 6 months Fluid Accumulation (Non Severe: Mild fluid retention Protein Calorie Malnutrition: Severe Is there a minimum of two crit: Yes Plan discussed with: Patient CC Plasma Assessment Blood Product Administration S: 15:10 FERNANDO HUNTER MD February 18, 2025 16:35
--- NOTE | 2025-02-18 17:30 | DVHPN2 ---
Subjective 02/18 - patient doing well. changed mind about SNF Acute PT rehab and wants to do PT rehab at home. dc plan updated. dc today. otherwise doing well. appears to be roaming halls in wheelchair. stable for dc. Reviewed: H&P Changes from previous H/P or p: No Changes General: Per HPI Skin: Other (Right foot multiple open sores with pus and drainage along with foul odor) Objective Vitals Vital Signs Date Time Temp Pulse Resp B/P (MAP) Pulse Ox O2 Delivery O2 Flow Rate FiO2 02/18/25 12:09 62 18 116/58 02/18/25 09:00 97.9 96 97.9 02/18/25 08:00 Nasal Cannula* 2 28 Intake/Output Intake and Output 02/18/25 07:00 Intake Total 1057 ml Output Total 1470 ml Balance -413 ml Intake Oral 1057 ml Output Urine Total 1470 ml # Bowel Movements 5 Exam General Appearance: Alert, Oriented X3, Cooperative, Not in acute distress HEENT: Atraumatic, Mucous membranes moist/pink Respiratory: Clear to auscultation, Normal air movement, No added sounds Cardiovascular: Regular rate, Normal S1, Normal S2, No murmurs Abdominal: Active bowel sounds, Soft, no distention, no tenderness Extremities:Right above-knee amputation, left foot 3rd, 4th, 5th toe amputation Skin: left foot gangrenous changes on the toes and some part of the dorsum of the foot Neuro: Normal speech, sensorimotor deficits none Psych/Mental Status: Mental status NL, Mood NL Nurse was there as sharperone during examination Medications Current Medications Medications Dose Ordered Sig/Omar Route Start Time Stop Time Status Last Admin Dose Admin Ascorbic Acid 500 mg BID PO 01/28/25 22:00 02/18/25 09:35 500 MG Acetaminophen 650 mg Q6HP PRN PO 01/28/25 19:00 02/18/25 04:44 650 MG Nitroglycerin 0.4 mg Q5MINP PRN SL 01/28/25 19:00 Atorvastatin Calcium 80 mg HS PO 01/28/25 22:00 02/17/25 21:31 80 MG Cilostazol 100 mg BID PO 01/28/25 22:00 02/18/25 09:36 100 MG Minoxidil 5 mg DAILY PO 01/29/25 10:00 02/18/25 09:38 5 MG Nicotine 1 patch DAILY TD 01/29/25 10:00 02/18/25 09:38 1 PATCH Tamsulosin HCl 0.4 mg DAILY PO 01/29/25 10:00 02/18/25 09:36 0.4 MG Haloperidol Lactate 5 mg Q8HP PRN IM 01/29/25 17:00 01/30/25 22:01 5 MG Folic Acid 1 mg/ Dextrose 50.2 ml @ 200.8 mls/ hr DAILY INJ 01/31/25 10:00 UNV Folic Acid 1 mg DAILY PO 01/31/25 10:00 02/18/25 09:36 1 MG Multivitamins/ Minerals 1 tab DAILY PO 02/01/25 10:00 02/18/25 09:35 1 TAB Enteral Nutritional Formula 240 ml TID PO 02/02/25 14:00 02/18/25 14:00 240 ML Thiamine HCl 250 mg DAILY IV 02/03/25 10:00 02/08/25 09:59 UNV Metoprolol Tartrate 12.5 mg BID PO 02/02/25 22:00 02/18/25 09:37 12.5 MG Sucralfate 1 gm QIDACHS PO 02/02/25 22:00 02/18/25 16:16 1 GM Lactulose 30 ml BID PO 02/03/25 10:45 02/17/25 21:30 30 ML Furosemide 20 mg DAILY PO 02/04/25 10:00 02/18/25 09:37 20 MG Spironolactone 25 mg DAILY PO 02/04/25 10:00 02/18/25 09:37 25 MG Thiamine HCl 100 mg DAILY PO 02/10/25 10:00 02/18/25 09:36 100 MG Morphine Sulfate 2 mg Q6HPRN PRN IV 02/09/25 14:30 02/18/25 11:39 2 MG Melatonin 5 mg HS PRN PO 02/09/25 14:30 02/16/25 20:16 5 MG Cefepime HCl 50 ml @ 12.5 mls/hr Q8HR IV 02/13/25 22:00 02/18/25 14:42 12.5 MLS/HR Trimethoprim/ Sulfamethoxazole 1 tab Q12HR PO 02/16/25 22:00 02/18/25 09:35 1 TAB Pantoprazole Sodium 40 mg DAILY@0600 PO 02/17/25 08:15 02/18/25 05:40 40 MG Laboratory Results Laboratory Tests 02/16/25 05:11 Urinalysis Test 01/30/25 11:20 Urine Color Light-red (Yellow) Urine Clarity Cloudy (Clear) H Urine pH 6.0 (5.0-9.0) Urine Specific [place] 1.014 (1.001-1.035) Urine Protein 1+ (Negative) H Urine Ketones Negative (Negative) Urine Blood 3+ /uL (Negative) H Urine Nitrite Negative (Negative) Urine Bilirubin Negative (Negative) Urine Urobilinogen Normal mg/dL (Negative) Urine Leukocyte Esterase 1+ /uL (Negative) Urine RBC 7434 /hpf (0 - 3) Urine Microscopic WBC 35 /HPF (0-3) H Urine Squamous Epithelial Cells Few /hpf (<5) Urine Bacteria Few /hpf (None Seen) H Urine Mucus Few (None Seen) Urine Glucose Normal mg/dL (Normal) Microbiology Microbiology Date/Time Source Procedure Growth Status 02/03/25 08:40 Blood Blood Culture - Final NO GROWTH AFTER 5 DAYS OF INCUBATION. Complete 01/30/25 18:49 Foot Right Gram Stain - Final Complete 01/30/25 18:49 Wound Culture - Final Pseudomonas aeruginosa Stenotrophomonas maltophilia Enterococcus faecalis Methicillin Resistant S.aureus Complete 01/30/25 11:20 Voided Urine Urine Culture - Final Complete Labs and/or images reviewed: Labs reviewed by me, Image(s) reviewed by me Assessment/Plan Assessment/Plan 02/18 - patient doing well. changed mind about SNF Acute PT rehab and wants to do PT rehab at home. dc plan updated. dc today. otherwise doing well. appears to be roaming halls in wheelchair. stable for dc. # Sepsis likely from right foot cellulitis # Right foot abscess, wet gangrene, osteomyelitis, cellulitis with a black eschar, necrotizing soft tissue infection, S/P right above-knee amputation # B/L Peripheral arterial disease s/p aortogram, angiogram with angioplasty # Left foot toe gangrenous - CT angio showed advanced atherosclerotic disease, [id number] stenosis on infrarenal abdominal aorta, stenosis of right and left common iliac artery, right & left superficial femoral and popliteal artery, - S/p right above-knee amputation, right and left leg arteriogram with angioplasty. - S/p Aortogram, left leg arteriogram, angioplasty of the common femoral artery, superficial femoral artery, tibioperoneal trunk. - Day 1 Status post amputation of left 3rd, 4th and 5th toe amputation. - blood culture negative - Wound culture revealed E coli, MRSA, Pseudomonas aeruginosa, Providencia stuartii. - Continue vancomycin, Cefepime, cilostazol, Lipitor 80 mg, aspirin - Physical therapy evaluation then planning be made for placement. # Severe anemia, normocytic, hypochromic, likely iron deficiency v/s anemia of chronic disease S/P BT - pRBC # likely alcoholic liver cirrhosis in compensation # history of hepatitis-C virus infection # Wernicke encephalopathy likely from alcoholism # Metabolic encephalopathy/toxic encephalopathy # Hiatal hernia with grade a erosive esophagitis # mild gastroduodenitis - monitor CBC - transfuse if hemoglobin is less than 7 - Iron supplement - thiamine, folic acid supplements - FOBT positive - Lasix 20 mg, spironolactone 25 mg, Protonix 40 mg IV b.i.d., Carafate b.i.d. - GI consult appreciated - outpatient follow up for EGD and colonoscopy # Acute retention of urine likely due to BPH # BPH - tamsulosin # A-Fib/AV roslyn reentry tachycardia/paroxysmal SVT - continue telemetry monitoring - rate controlled with metoprolol # HLD - Lipitor # HTN - continuously monitor - continue metoprolol tartrate Plan discussed with: Patient My Orders Orders - DOLORES KAT MD Procedure Category Date Status Time Discharge DISCHARGE 02/18/25 Transmitted 11:35 * Ammunition [employer]ist CONS 02/18/25 Transmitted Consult * Wound Consult CONS 02/18/25 Transmitted Date of Service: February 18, 2025 Billing Provider: DOLORES KAT MD Common Visit Codes: [id number] INP/OBS CARE(MOD) DOLORES KAT MD February 18, 2025 17:30
--- NOTE | 2025-02-18 23:58 | DVHPN2 ---
Progress Note - Dictate Date Seen: February 18, 2025 Has the PT tested + for MRSA If YES, has PT been informed?: No Medical Necessity Reason Pt with a Central, PICC or Fol: No The following are medically ne: Aviles Catheter Subjective Patient was seen and evaluated in follow up. No overnight events. LLE pain is unchanged. Patient changed mind about SNF and would like to do PT at home. Patient utilizing WC. Telemetry reviewed. vital signs Vital Sign Date Time Temp Pulse Resp B/P (MAP) Pulse Ox O2 Delivery O2 Flow Rate FiO2 02/18/25 11:39 97 18 132/64 02/18/25 09:00 97.9 96 97.9 02/18/25 08:00 Nasal Cannula* 2 28 Total Intake and Output 02/17/25 02/17/25 02/18/25 15:00 23:00 07:00 Intake Total 720 ml 237 ml 100 ml Output Total 470 ml 1000 ml Balance 720 ml -233 ml -900 ml medications Current Medications Medications Dose Ordered Sig/Omar Route Start Time Stop Time Status Last Admin Dose Admin Ascorbic Acid 500 mg BID PO 01/28/25 22:00 02/18/25 09:35 500 MG Acetaminophen 650 mg Q6HP PRN PO 01/28/25 19:00 02/18/25 04:44 650 MG Nitroglycerin 0.4 mg Q5MINP PRN SL 01/28/25 19:00 Atorvastatin Calcium 80 mg HS PO 01/28/25 22:00 02/17/25 21:31 80 MG Cilostazol 100 mg BID PO 01/28/25 22:00 02/18/25 09:36 100 MG Minoxidil 5 mg DAILY PO 01/29/25 10:00 02/18/25 09:38 5 MG Nicotine 1 patch DAILY TD 01/29/25 10:00 02/18/25 09:38 1 PATCH Tamsulosin HCl 0.4 mg DAILY PO 01/29/25 10:00 02/18/25 09:36 0.4 MG Haloperidol Lactate 5 mg Q8HP PRN IM 01/29/25 17:00 01/30/25 22:01 5 MG Folic Acid 1 mg/ Dextrose 50.2 ml @ 200.8 mls/ hr DAILY INJ 01/31/25 10:00 UNV Folic Acid 1 mg DAILY PO 01/31/25 10:00 02/18/25 09:36 1 MG Multivitamins/ Minerals 1 tab DAILY PO 02/01/25 10:00 02/18/25 09:35 1 TAB Enteral Nutritional Formula 240 ml TID PO 02/02/25 14:00 02/18/25 05:40 240 ML Thiamine HCl 250 mg DAILY IV 02/03/25 10:00 02/08/25 09:59 UNV Metoprolol Tartrate 12.5 mg BID PO 02/02/25 22:00 02/18/25 09:37 12.5 MG Sucralfate 1 gm QIDACHS PO 02/02/25 22:00 02/18/25 11:38 1 GM Lactulose 30 ml BID PO 02/03/25 10:45 02/17/25 21:30 30 ML Furosemide 20 mg DAILY PO 02/04/25 10:00 02/18/25 09:37 20 MG Spironolactone 25 mg DAILY PO 02/04/25 10:00 02/18/25 09:37 25 MG Thiamine HCl 100 mg DAILY PO 02/10/25 10:00 02/18/25 09:36 100 MG Morphine Sulfate 2 mg Q6HPRN PRN IV 02/09/25 14:30 02/18/25 11:39 2 MG Melatonin 5 mg HS PRN PO 02/09/25 14:30 02/16/25 20:16 5 MG Cefepime HCl 50 ml @ 12.5 mls/hr Q8HR IV 02/13/25 22:00 02/18/25 05:43 12.5 MLS/HR Trimethoprim/ Sulfamethoxazole 1 tab Q12HR PO 02/16/25 22:00 02/18/25 09:35 1 TAB Pantoprazole Sodium 40 mg DAILY@0600 PO 02/17/25 08:15 02/18/25 05:40 40 MG objective GENERAL: Alert and oriented x 3. No acute distress. EYES: PERRL, EOMI. Anicteric. HENT: Moist mucous membranes. LUNGS: Clear to auscultation bilaterally. CARDIOVASCULAR: Regular rate and rhythm. ABDOMEN: Soft, nontender and nondistended. EXTREMITIES: No edema. NEUROLOGIC: No focal neurological deficits. SKIN: Warm, dry. laboratory and microbiology Laboratory Tests 02/16/25 05:11 Test 02/16/25 05:11 Range/Units Serum Glucose 113 H 74-106 mg/dL Problem List Atrioventricular roslyn reentry tachycardia. Questionable atrial fibrillation. Nonsustained ventricular tachycardia. Peripheral arterial disease status post bilateral lower extremity stents. Rule out structural heart disease. Hypertension. Hyperlipidemia. Severe anemia requiring PRBC transfusion. GI bleed with positive Hemoccult. Hypokalemia. Sepsis. Right foot osteomyelitis. Necrotizing wound to right foot. Assessment/Plan Continued all current supportive medical care. Morphine and [place] for pain management. Lipitor, Metoprolol. Diuretics with Lasix. IV antibiotics as ordered. GI prophylactics. Nitro SL. Additional plan as per the hospital course. Dietary Evaluation Review Recommendations by RD: Increase Calorie Intake, Protein Supplementation Comments: 1) Ensure Enlive 240ml QID (ordered per ONS protocol) 2) Jose A 1 pk BID (ordered per ONS protocol) 3) Continue current POC Expected Outcomes/Goals: wound healing to improve to meet 75% estimated energy & protein needs fu 3-5 days Interpretation of weight loss: >10% in 6 months Fluid Accumulation (Non Severe: Mild fluid retention Protein Calorie Malnutrition: Severe Is there a minimum of two crit: Yes Plan discussed with: Patient CC Plasma Assessment Blood Product Administration S: 15:10 DEWAYNE SAMANO MD February 18, 2025 13:19
[2025-02-19 01:00] VITALS: BP 106/55; PULSE 94; RESP 18; TEMP 98.9; O2SAT 97
[2025-02-19 05:00] VITALS: BP 126/55; PULSE 90; RESP 18; TEMP 97.9; O2SAT 92
[2025-02-19 08:00] VITALS: PULSE 103; RESP 18
[2025-02-19 09:00] VITALS: BP 110/59; PULSE 101; RESP 18; TEMP 98.4; O2SAT 97
[2025-02-19 11:16] VITALS: BP 122/56; PULSE 99; TEMP 36.6
--- NOTE | 2025-02-19 11:29 | DVHPNRES ---
Progress Note Date Seen: February 19, 2025 Resident Creating Document: BUD ROY RESIDENT Has the PT tested + for MRSA If YES, has PT been informed?: No Medical Necessity Reason Pt with a Central, PICC or Fol: No The following are medically ne: Aviles Catheter Subjective Review of Systems Patient seen and examined at the bedside. Patient reported no new complaints at this time. Pending discharge due to delay in placement. Objective vital signs Vital Sign Date Time Temp Pulse Resp B/P (MAP) Pulse Ox O2 Delivery O2 Flow Rate FiO2 02/19/25 11:16 36.6 99 02/19/25 10:00 122/56 02/19/25 08:00 18 Room Air* 0 21 02/19/25 05:00 92 Total Intake and Output 02/18/25 02/18/25 02/19/25 15:00 23:00 07:00 Intake Total 238 ml 630 ml 250 ml Balance 238 ml 630 ml 250 ml medications Current Medications Medications Dose Ordered Sig/Omar Route Start Time Stop Time Status Last Admin Dose Admin Ascorbic Acid 500 mg BID PO 01/28/25 22:00 02/19/25 09:59 500 MG Acetaminophen 650 mg Q6HP PRN PO 01/28/25 19:00 02/18/25 20:31 650 MG Nitroglycerin 0.4 mg Q5MINP PRN SL 01/28/25 19:00 Atorvastatin Calcium 80 mg HS PO 01/28/25 22:00 02/18/25 21:50 80 MG Cilostazol 100 mg BID PO 01/28/25 22:00 02/19/25 09:59 100 MG Minoxidil 5 mg DAILY PO 01/29/25 10:00 02/18/25 09:38 5 MG Nicotine 1 patch DAILY TD 01/29/25 10:00 02/19/25 10:04 1 PATCH Tamsulosin HCl 0.4 mg DAILY PO 01/29/25 10:00 02/19/25 09:59 0.4 MG Haloperidol Lactate 5 mg Q8HP PRN IM 01/29/25 17:00 01/30/25 22:01 5 MG Folic Acid 1 mg/ Dextrose 50.2 ml @ 200.8 mls/ hr DAILY INJ 01/31/25 10:00 UNV Folic Acid 1 mg DAILY PO 01/31/25 10:00 02/19/25 09:59 1 MG Multivitamins/ Minerals 1 tab DAILY PO 02/01/25 10:00 02/19/25 10:00 1 TAB Enteral Nutritional Formula 240 ml TID PO 02/02/25 14:00 02/18/25 21:53 240 ML Thiamine HCl 250 mg DAILY IV 02/03/25 10:00 02/08/25 09:59 UNV Metoprolol Tartrate 12.5 mg BID PO 02/02/25 22:00 02/18/25 09:37 12.5 MG Sucralfate 1 gm QIDACHS PO 02/02/25 22:00 02/19/25 09:59 1 GM Lactulose 30 ml BID PO 02/03/25 10:45 02/19/25 09:59 30 ML Furosemide 20 mg DAILY PO 02/04/25 10:00 02/19/25 10:00 20 MG Spironolactone 25 mg DAILY PO 02/04/25 10:00 02/19/25 09:59 25 MG Thiamine HCl 100 mg DAILY PO 02/10/25 10:00 02/19/25 09:59 100 MG Melatonin 5 mg HS PRN PO 02/09/25 14:30 02/18/25 21:51 5 MG Cefepime HCl 50 ml @ 12.5 mls/hr Q8HR IV 02/13/25 22:00 02/19/25 05:42 12.5 MLS/HR Trimethoprim/ Sulfamethoxazole 1 tab Q12HR PO 02/16/25 22:00 02/19/25 09:59 1 TAB Pantoprazole Sodium 40 mg DAILY@0600 PO 02/17/25 08:15 02/19/25 05:42 40 MG Examination Pt is lying on bed General Appearance: Alert, Oriented X3, Cooperative, Not in acute distress HEENT: Atraumatic, Mucous membranes moist/pink Respiratory: Clear to auscultation, Normal air movement, No added sounds Cardiovascular: Regular rate, Normal S1, Normal S2, No murmurs Abdominal: Active bowel sounds, Soft, no distention, no tenderness Extremities:Right above-knee amputation, left foot 3rd, 4th, 5th toe amputation Skin: left foot gangrenous changes on the toes and some part of the dorsum of the foot Neuro: Normal speech, sensorimotor deficits none Psych/Mental Status: Mental status NL, Mood NL Nurse was there as sharperone during examination laboratory and microbiology Laboratory Tests 02/16/25 05:11 Test 02/16/25 05:11 Range/Units Serum Glucose 113 H 74-106 mg/dL Microbiology Date/Time Source Procedure Growth Status 02/03/25 08:40 Blood Blood Culture - Final NO GROWTH AFTER 5 DAYS OF INCUBATION. Complete 01/30/25 18:49 Foot Right Gram Stain - Final Complete 01/30/25 18:49 Wound Culture - Final Pseudomonas aeruginosa Stenotrophomonas maltophilia Enterococcus faecalis Methicillin Resistant S.aureus Complete 01/30/25 11:20 Voided Urine Urine Culture - Final Complete Labs and/or images reviewed: Labs reviewed by me, Image(s) reviewed by me Problem List/Assessment/Plan Problem List/Assessment/Plan # Sepsis likely from right foot cellulitis # Right foot abscess, wet gangrene, osteomyelitis, cellulitis with a black eschar, necrotizing soft tissue infection, S/P right above-knee amputation # B/L Peripheral arterial disease s/p aortogram, angiogram with angioplasty # Left foot toe gangrenous - CT angio showed advanced atherosclerotic disease, [id number] stenosis on infrarenal abdominal aorta, stenosis of right and left common iliac artery, right & left superficial femoral and popliteal artery, - S/p right above-knee amputation, right and left leg arteriogram with angioplasty. - S/p Aortogram, left leg arteriogram, angioplasty of the common femoral artery, superficial femoral artery, tibioperoneal trunk. - Status post amputation of left 3rd, 4th and 5th toe amputation. - Wound culture revealed E coli, MRSA, Pseudomonas aeruginosa, Providencia stuartii. -continue cefepime and Bactrim # Severe anemia, normocytic, hypochromic, likely iron deficiency v/s anemia of chronic disease S/P BT - pRBC # likely alcoholic liver cirrhosis in compensation # history of hepatitis-C virus infection # Wernicke encephalopathy likely from alcoholism # Metabolic encephalopathy/toxic encephalopathy # Hiatal hernia with grade a erosive esophagitis # mild gastroduodenitis - monitor CBC - transfuse if hemoglobin is less than 7 - Iron supplement - thiamine, folic acid supplements - Lasix 20 mg, spironolactone 25 mg, Protonix 40 mg IV b.i.d., Carafate b.i.d. - outpatient follow up for EGD and colonoscopy # Acute retention of urine likely due to BPH # BPH - tamsulosin # A-Fib/AV roslyn reentry tachycardia/paroxysmal SVT - continue telemetry monitoring - rate controlled with metoprolol # HLD - Lipitor # HTN - continuously monitor - continue metoprolol tartrate SCDs for now Protonix NPO for now, resume diet after the procedure today Goals of care discussed with the patient for more than 27 minutes: Full code status Case discussed with Dr. Cotton, patient and nurse. Pending home health placement. Plan discussed with: Patient Dietary Evaluation Review Recommendations by RD: Increase Calorie Intake, Protein Supplementation Comments: 1) Ensure Enlive 240ml QID (ordered per ONS protocol) 2) Jose A 1 pk BID (ordered per ONS protocol) 3) Continue current POC Expected Outcomes/Goals: wound healing to improve to meet 75% estimated energy & protein needs fu 3-5 days Interpretation of weight loss: >10% in 6 months Fluid Accumulation (Non Severe: Mild fluid retention Protein Calorie Malnutrition: Severe Is there a minimum of two crit: Yes CC Plasma Assessment Blood Product Administration S: 15:10 BUD ROY RESIDENT February 19, 2025 11:29
[2025-02-19 13:00] VITALS: BP 108/66; PULSE 59; RESP 16; TEMP 98.6; O2SAT 100
--- NOTE | 2025-02-19 22:54 | DVHPN2 ---
Progress Note - Dictate Date Seen: February 19, 2025 Has the PT tested + for MRSA If YES, has PT been informed?: No Medical Necessity Reason Pt with a Central, PICC or Fol: No The following are medically ne: Aviles Catheter Subjective Patient was seen and evaluated in follow up. Patient has no new complaints at this time. Patient denies any cardiac symptoms. Patient is cardiac stable for discharge. Telemetry reviewed. vital signs Vital Sign Date Time Temp Pulse Resp B/P (MAP) Pulse Ox O2 Delivery O2 Flow Rate FiO2 02/19/25 11:16 36.6 99 02/19/25 10:00 122/56 02/19/25 08:00 18 Room Air* 0 21 02/19/25 05:00 92 Total Intake and Output 02/18/25 02/18/25 02/19/25 15:00 23:00 07:00 Intake Total 238 ml 630 ml 250 ml Balance 238 ml 630 ml 250 ml medications Current Medications Medications Dose Ordered Sig/Omar Route Start Time Stop Time Status Last Admin Dose Admin Ascorbic Acid 500 mg BID PO 01/28/25 22:00 02/19/25 09:59 500 MG Acetaminophen 650 mg Q6HP PRN PO 01/28/25 19:00 02/18/25 20:31 650 MG Nitroglycerin 0.4 mg Q5MINP PRN SL 01/28/25 19:00 Atorvastatin Calcium 80 mg HS PO 01/28/25 22:00 02/18/25 21:50 80 MG Cilostazol 100 mg BID PO 01/28/25 22:00 02/19/25 09:59 100 MG Minoxidil 5 mg DAILY PO 01/29/25 10:00 02/18/25 09:38 5 MG Nicotine 1 patch DAILY TD 01/29/25 10:00 02/19/25 10:04 1 PATCH Tamsulosin HCl 0.4 mg DAILY PO 01/29/25 10:00 02/19/25 09:59 0.4 MG Haloperidol Lactate 5 mg Q8HP PRN IM 01/29/25 17:00 01/30/25 22:01 5 MG Folic Acid 1 mg/ Dextrose 50.2 ml @ 200.8 mls/ hr DAILY INJ 01/31/25 10:00 UNV Folic Acid 1 mg DAILY PO 01/31/25 10:00 02/19/25 09:59 1 MG Multivitamins/ Minerals 1 tab DAILY PO 02/01/25 10:00 02/19/25 10:00 1 TAB Enteral Nutritional Formula 240 ml TID PO 02/02/25 14:00 02/19/25 14:24 240 ML Thiamine HCl 250 mg DAILY IV 02/03/25 10:00 02/08/25 09:59 UNV Metoprolol Tartrate 12.5 mg BID PO 02/02/25 22:00 02/18/25 09:37 12.5 MG Sucralfate 1 gm QIDACHS PO 02/02/25 22:00 02/19/25 09:59 1 GM Lactulose 30 ml BID PO 02/03/25 10:45 02/19/25 09:59 30 ML Furosemide 20 mg DAILY PO 02/04/25 10:00 02/19/25 10:00 20 MG Spironolactone 25 mg DAILY PO 02/04/25 10:00 02/19/25 09:59 25 MG Thiamine HCl 100 mg DAILY PO 02/10/25 10:00 02/19/25 09:59 100 MG Melatonin 5 mg HS PRN PO 02/09/25 14:30 02/18/25 21:51 5 MG Cefepime HCl 50 ml @ 12.5 mls/hr Q8HR IV 02/13/25 22:00 02/19/25 05:42 12.5 MLS/HR Trimethoprim/ Sulfamethoxazole 1 tab Q12HR PO 02/16/25 22:00 02/19/25 09:59 1 TAB Pantoprazole Sodium 40 mg DAILY@0600 PO 02/17/25 08:15 02/19/25 05:42 40 MG objective GENERAL: Alert and oriented x 3. No acute distress. EYES: PERRL, EOMI. Anicteric. HENT: Moist mucous membranes. LUNGS: Clear to auscultation bilaterally. CARDIOVASCULAR: Regular rate and rhythm. ABDOMEN: Soft, nontender and nondistended. EXTREMITIES: No edema. NEUROLOGIC: No focal neurological deficits. SKIN: Warm, dry. laboratory and microbiology Laboratory Tests 02/16/25 05:11 Test 02/16/25 05:11 Range/Units Serum Glucose 113 H 74-106 mg/dL Problem List Atrioventricular roslyn reentry tachycardia. Questionable atrial fibrillation. Nonsustained ventricular tachycardia. Peripheral arterial disease status post bilateral lower extremity stents. Rule out structural heart disease. Hypertension. Hyperlipidemia. Severe anemia requiring PRBC transfusion. GI bleed with positive Hemoccult. Hypokalemia. Sepsis. Right foot osteomyelitis. Necrotizing wound to right foot. Assessment/Plan Continued all current supportive medical care. Morphine and [place] for pain management. Lipitor, Metoprolol. Diuretics with Lasix. IV antibiotics as ordered. GI prophylactics. Nitro SL. Additional plan as per the hospital course. Dietary Evaluation Review Recommendations by RD: Increase Calorie Intake, Protein Supplementation Comments: 1) Ensure Enlive 240ml QID (ordered per ONS protocol) 2) Jose A 1 pk BID (ordered per ONS protocol) 3) Continue current POC Expected Outcomes/Goals: wound healing to improve to meet 75% estimated energy & protein needs fu 3-5 days Interpretation of weight loss: >10% in 6 months Fluid Accumulation (Non Severe: Mild fluid retention Protein Calorie Malnutrition: Severe Is there a minimum of two crit: Yes Plan discussed with: Patient CC Plasma Assessment Blood Product Administration S: 15:10 DEWAYNE SAMANO MD February 19, 2025 15:21
== END 2025-02-19 15:33 | disposition home health service (06) | DRG 853 ==
LOC: ER 12:30 → OVERFLOW 19:00 → TELE-WESTW 01-29 18:13 → TELE-CENTR 01-31 11:30
PROVIDERS: ADMIT Student in an Organized Health Care Education/Training Program; ATTEND Emergency Medicine
PROC: 30233N1 Transfusion of Nonautologous Red Blood Cells into Peripheral Vein, Percutaneous Approach (ICD-10-PCS; principal; 2025-01-28)
PROC: 0DB98ZX Excision of Duodenum, Via Natural or Artificial Opening Endoscopic, Diagnostic (ICD-10-PCS; 2025-02-05)
PROC: 0DB68ZX Excision of Stomach, Via Natural or Artificial Opening Endoscopic, Diagnostic (ICD-10-PCS; 2025-02-05)
PROC: 0DB48ZX Excision of Esophagogastric Junction, Via Natural or Artificial Opening Endoscopic, Diagnostic (ICD-10-PCS; 2025-02-05)
PROC: 047C3Z1 Dilation of Right Common Iliac Artery using Drug-Coated Balloon, Percutaneous Approach (ICD-10-PCS; 2025-02-06)
PROC: B41DYZZ Fluoroscopy of Aorta and Bilateral Lower Extremity Arteries using Other Contrast (ICD-10-PCS; 2025-02-06)
PROC: 0Y6C0Z1 Detachment at Right Upper Leg, High, Open Approach (ICD-10-PCS; 2025-02-09)
PROC: 047L3Z1 Dilation of Left Femoral Artery using Drug-Coated Balloon, Percutaneous Approach (ICD-10-PCS; 2025-02-13)
PROC: 047N3ZZ Dilation of Left Popliteal Artery, Percutaneous Approach (ICD-10-PCS; 2025-02-13)
PROC: B41DYZZ Fluoroscopy of Aorta and Bilateral Lower Extremity Arteries using Other Contrast (ICD-10-PCS; 2025-02-13)
PROC: 0Y6N0ZC Detachment at Left Foot, Partial 3rd Ray, Open Approach (ICD-10-PCS; 2025-02-14)
PROC: 0Y6N0ZD Detachment at Left Foot, Partial 4th Ray, Open Approach (ICD-10-PCS; 2025-02-14)
PROC: 0Y6N0ZF Detachment at Left Foot, Partial 5th Ray, Open Approach (ICD-10-PCS; 2025-02-14)
DX: A41.02 Sepsis due to Methicillin resistant Staphylococcus aureus (principal); G92.8 Other toxic encephalopathy; K26.4 Chronic or unspecified duodenal ulcer with hemorrhage; K22.11 Ulcer of esophagus with bleeding; K29.91 Gastroduodenitis, unspecified, with bleeding; L03.115 Cellulitis of right lower limb; M86.171 Other acute osteomyelitis, right ankle and foot; M31.9 Necrotizing vasculopathy, unspecified; E51.2 Wernicke's encephalopathy; I47.19 Other supraventricular tachycardia; L02.611 Cutaneous abscess of right foot; R64 Cachexia; Z68.1 Body mass index [BMI] 19.9 or less, adult; A41.51 Sepsis due to Escherichia coli [E. coli]; A41.52 Sepsis due to Pseudomonas; K59.00 Constipation, unspecified; N40.0 Benign prostatic hyperplasia without lower urinary tract symptoms; E87.6 Hypokalemia; E78.5 Hyperlipidemia, unspecified; I73.9 Peripheral vascular disease, unspecified; I48.91 Unspecified atrial fibrillation; K44.9 Diaphragmatic hernia without obstruction or gangrene; F10.10 Alcohol abuse, uncomplicated; Y90.0 Blood alcohol level of less than 20 mg/100 ml; K70.30 Alcoholic cirrhosis of liver without ascites; N40.1 Benign prostatic hyperplasia with lower urinary tract symptoms; R33.8 Other retention of urine; F17.210 Nicotine dependence, cigarettes, uncomplicated; L97.519 Non-pressure chronic ulcer of other part of right foot with unspecified severity; D63.8 Anemia in other chronic diseases classified elsewhere; I70.8 Atherosclerosis of other arteries; Z79.82 Long term (current) use of aspirin; Z79.899 Other long term (current) drug therapy; Z80.1 Family history of malignant neoplasm of trachea, bronchus and lung; Z95.820 Peripheral vascular angioplasty status with implants and grafts; Z91.199 Patient's noncompliance with other medical treatment and regimen due to unspecified reason; Z92.3 Personal history of irradiation
CPT/HCPCS: 36415; 37220; 37224; 70450; 71045; 74018; 74177; 75635; 75710; 76775; 80048; 80053; 80076; 80202; 80307; 80320; 81001; 82140; 82270; 82607; 82728; 82746; 82977; 83010; 83036; 83540; 83550; 83605; 83615; 83735; 83880; 84425; 84443; 84484; 85014; 85018; 85025; 85045; 85384; 85610; 85730; 86703; 86803; 86850; 86900; 86901; 86920; 87040; 87077; 87081; 87086; 87186; 87205; 87340; 93005; 93306; 93925; 93970; 96365; 96367; 97110; 97163; 97530; 99152; 99291; C1769; C1894; G0378; J1756; J2250; J2470; J2704; J3480; J3490; J7060; Q9967

== ENCOUNTER 2025-06-04 13:37 | Inpatient (IN) | payer OTHER, MEDICARE, MEDICAID ==
[~2025-06-04] VITALS: Ht 177.8 cm; Wt 64.5 kg
[~2025-06-04 13:37] MED LIST changes: +BACDST PO; +FURO20TA4 PO; +PANT40TA2 PO; +SUCR1TAB PO
[2025-06-04 14:27] LABS: Hematocrit 37.4 % (41.0-53.0); Hemoglobin 12.7 g/dL (13.5-17.5); Mean Corpuscular Hemoglobin 30.6 pg (28.0-32.0); Mean Corpuscular Volume 90.4 fL (80.0-100.0); Nucleated Red Blood Cells % 0.0 %
[2025-06-04 14:30] LABS: Chloride 104 mmol/L (98-107); Potassium 3.8 mmol/L (3.5-5.1); Sodium 136 mmol/L (136-145)
--- NOTE | 2025-06-04 14:30 | ED.PDOC ---
History of Present Illness(SKN HPI Comments 65-year-old male presents here with left foot wound. He states he has had these wounds since February of this year when he had left foot 3rd 4th and 5th digit amputation as they were a gangrenous. He states since then he has had his intense pain to the left lower extremity and today the pain was even worse. He states he has been taking Tylenol and ibuprofen for pain only and it does not suffice. He states he is wants the leg amputated. Wound care nurse has been coming 3 times a week for dressing change and applying Betadine per the orthopedic surgeons recommendation. He has a previous history of amputation to the right leg as that leg was gangrenous. Denies any fevers chills. Denies any purulent discharge from the wound. Chief Complaint: Wound Check Time Seen by MD: 14:26 Primary Care Provider: UNKNOWN Allergies: Coded Allergies: NO KNOWN ALLERGIES (Unverified , 09/30/24) Home Meds Active Scripts Furosemide (Furosemide) 20 Mg Tab, 20 MG PO DAILY for 30 Days, #30 TAB Prov:KIRILLDANEJEANIE [facility] 02/16/25 Pantoprazole Sodium Sesquihydr (Protonix) 40 Mg Tab, 40 MG PO DAILY for 60 Days, #60 TAB Prov:[facility]ST[facility] 02/16/25 Sucralfate (Sucralfate) 1 Gm Tab, 1 GM PO TIDWMEALS for 30 Days, #90 TAB Before meals Prov:KIRILLDANEJEANIE [facility] 02/16/25 Sulfamethoxazole W/Trimethopri (Bactrim Ds Tablet) 1 Tab Tb, 1 TAB PO Q12HR for 14 Days, #28 TAB Prov:KIRILLDANEJEANIE [facility] 02/16/25 Tamsulosin Hcl (Tamsulosin Hcl) 0.4 Mg Cap, 2 CAP PO DAILY, #60 CAP 5 Refills Prov:BRANDI HOPPER [facility] 10/04/24 Cilostazol (Cilostazol) 100 Mg Tab, 1 TAB PO BID, #60 TAB 5 Refills Prov:BRANDI HOPPER [facility] 10/04/24 Nicotine (Nicoderm 21MG/24HR) 1 Patch Ph, 1 PATCH TD DAILY for 30 Days, #30 PATCH Prov:BRANDI HOPPER [facility] 10/04/24 Minoxidil (Loniten) 2.5 Mg Tb, 5 MG PO DAILY for 30 Days, #60 TAB [facility] 10/04/24 Lisinopril (Lisinopril) 5 Mg Tab, 5 MG PO DAILY for 30 Days, #30 TAB [facility] 10/04/24 Hydralazine HCl (Hydralazine HCl) 25 Mg Tab, 50 MG PO Q8HR for 30 Days, #180 TAB [facility] 10/04/24 Atorvastatin Calcium (ATORVASTATIN CALCIUM) 20 Mg Tab, 80 MG PO HS for 30 Days, #120 TAB [facility] 10/04/24 Aspirin (Aspirin Low Dose) 81 Mg Tab, 81 MG PO DAILY for 30 Days, #30 TAB [facility] 10/04/24 Mode of Arrival: Wheelchair Physical Exam General Appearance: Moderate Distress, Thin HEENT: Normal ENT Inspection, Pharynx Normal, TMs Normal Neck: Full Range of Motion, Non-Tender, Normal, Normal Inspection Respiratory: Chest Non-Tender, Lungs Clear, No Accessory Muscle Use, No Respiratory Distress, Normal Breath Sounds Cardiovascular: No Edema, No JVD, No Murmur, No Gallop, Normal Peripheral Pulses, Regular Rate/Rhythm Breast Exam: Deferred Gastrointestinal: No Organomegaly, Non Tender, No Pulsatile Mass, Normal Bowel Sounds, Soft Genitalia: Deferred Pelvic: Deferred Rectal: Deferred Extremities: Other (Large wound to the area of amputation site. Evidence of dry gangrene and slough. No active purulent discharge. He has another gangrenous wound to the dorsal aspect of the foot also. Exquisite tenderness to palpation. No purulent discharge no erythema surrounding wound site.) Musculoskeletal : Apperance: Normal Neurologic: Alert, Normal Affect, Normal Mood, No Sensory Deficits, Other (Previous Right leg amputation) Cerebellar Function: Normal Reflexes: Normal Skin: Dry, Warm, Other (Please see extremity) Lymphatic: No Adenopathy Was a procedure done? Was a procedure done?: No Differential Diagnosis (INTG) Differential Diagnosis: N/A Differential Diagnosis: Abscess, Cellulitis, Gangrene, Osteomyelitis Abscess: Gas Gangrene, N/A Differential Diagnosis: Cellulitis, Osteomyelitis, Other (Gangrene) X-Ray, Labs, Meds, VS Vital Signs Date Time Temp Pulse Resp B/P (MAP) Pulse Ox O2 Delivery O2 Flow Rate FiO2 06/04/25 13:45 97.3 95 18 117/67 96 97.3 Lab Test 06/04/25 14:05 Range/Units White Blood Count 8.0 4.4-10.8 10^3/uL Red Blood Count 4.14 L 4.5-5.90 10^6/uL Hemoglobin 12.7 L 13.5-17.5 g/dL Hematocrit 37.4 L 41.0-53.0 % Mean Corpuscular Volume 90.4 80.0-100.0 fL Mean Corpuscular Hemoglobin 30.6 28.0-32.0 pg Mean Corpuscular Hemoglobin Concent 33.9 32.0-36.0 g/dL Red Cell Distribution Width 16.7 H 11.8-14.3 % Platelet Count 394 140-450 10^3/uL Mean Platelet Volume 7.5 6.9-10.8 fL Neutrophils (%) (Auto) 59.0 37.0-80.0 % Lymphocytes (%) (Auto) 26.0 10.0-50.0 % Monocytes (%) (Auto) 10.3 0.0-12.0 % Eosinophils (%) (Auto) 4.1 0.0-7.0 % Basophils (%) (Auto) 0.6 0.0-2.0 % Neutrophils # (Auto) 4.7 1.6-8.6 10 ^3/uL Lymphocytes # (Auto) 2.1 0.4-5.4 10 ^3/uL Monocytes # (Auto) 0.8 0-1.3 10 ^3/uL Eosinophils # (Auto) 0.3 0-0.8 10 ^3/uL Basophils # (Auto) 0 0-0.2 10 ^3/uL Nucleated Red Blood Cells 0.0 % Sodium Level 136 136-145 mmol/L Potassium Level 3.8 3.5-5.1 mmol/L Chloride Level 104 98-107 mmol/L Carbon Dioxide Level 27 20-31 mmol/L Anion Gap 5 5-15 Blood Urea Nitrogen Pending Creatinine Pending Glomerular Filtration Rate Calc Pending BUN/Creatinine Ratio Pending Serum Glucose Pending Calcium Level 9.3 8.7-10.4 mg/dL 65-year-old male presents here with wound to the left lower foot. Appears to have some sloughing and dry gangrene. Patient states he has been significant pain. I have written for morphine and Zofran IV. Blood work has been done with a normal CBC and BMP. WBC count is not elevated. At this time patient does need inpatient care for wound care and pain control. At this time hospitalist team has been contacted. Time of 1ST Reevaluation: 14:56 Reevaluation 1ST: Unchanged Patient Education/Counseling: Diagnosis, Treatment Family Education/Counseling: No Family Present SEPSIS Sepsis Screen Date sepsis recognized/suspect: Jun 04, 2025 Time Sepsis recognized/suspect: 1344 Recent Procedure: No On Antibiotic Therapy: No Respiratory Rate >20: No Heart Rate >90: Yes Temp<36 C (96.8 F) or >38.3 C: No SBP <90 or MAP <65 mmHG: No New Acute Mental Status Change: No Is the patient on CPAP, BIPAP,: No Physician Orders Basic Metabolic Panel (06/04/25 13:52) Wound Culture W/ Gs (06/04/25 13:52) Morphine Sulfate Injection (06/04/25 14:45) Ondansetron Hcl (Zofran) (06/04/25 14:45) Vital Signs Date Time Temp Pulse Resp B/P (MAP) Pulse Ox O2 Delivery O2 Flow Rate FiO2 06/04/25 13:45 97.3 95 18 117/67 96 97.3 Laboratory Tests Test 06/04/25 14:05 White Blood Count 8.0 10^3/uL (4.4-10.8) Departure 1 Departure Time of Disposition: 16:56 Impression: Primary Impression: Dry gangrene Disposition: 09 ADMITTED INPATIENT Condition: Stable Critical Care Note Critical Care Time?: No Stability Stability form required: No Heart Score Heart Score: Heart Score Response (Comments) Value History N/A 0 EKG N/A 0 Age N/A 0 Risk Factors N/A 0 Troponin N/A 0 Total 0 I personally scribed for JENN STALLINGS MD ([email or web address]) on 06/04/25 at 14:30. Electronically submitted by Camille Rowan ([email or web address]). JENN STALLINGS MD Jun 04, 2025 14:30
[2025-06-04 14:31] LABS: Anion Gap 5 (5-15); Calcium 9.3 mg/dL (8.7-10.4); Carbon Dioxide 27 mmol/L (20-31)
[2025-06-04 14:36] LABS: BUN/Creatinine Ratio 10.9 (10.0-20.0)
[2025-06-04 14:37] LABS: Blood Urea Nitrogen 7 mg/dL (9-23); Glucose 106 mg/dL (74-106)
[2025-06-04] MEDS: ONDANSETRON HCL 4 MG/2 ML VIAL IV ONE (15:00)
[2025-06-04] MEDS: MORPHINE SULFATE 4 MG/ML SYR/VIAL IV ONE (15:02)
--- NOTE | 2025-06-04 16:59 | DVHHP2 ---
Admitting Diagnosis: Left lower leg wound History of Present Illness 65-year-old male presents here with left foot wound. He states he has had these wounds since February of this year when he had left foot 3rd 4th and 5th digit amputation as they were a gangrenous. He states since then he has had his intense pain to the left lower extremity and today the pain was even worse. He states he has been taking Tylenol and ibuprofen for pain only and it does not suffice. He states he is wants the leg amputated. Wound care nurse has been coming 3 times a week for dressing change and applying Betadine per the orthopedic surgeons recommendation. He has a previous history of amputation to the right leg as that leg was gangrenous. Denies any fevers chills. Denies any purulent discharge from the wound. Patient Family History: FH: cancer G8 MOTHER FH: lung cancer G8 FATHER Hepatitis C 19 CHILD Allergies: Coded Allergies: NO KNOWN ALLERGIES (Unverified , 09/30/24) Home Meds Active Scripts Furosemide (Furosemide) 20 Mg Tab, 20 MG PO DAILY for 30 Days, #30 TAB Prov:[facility] 02/16/25 Pantoprazole Sodium Sesquihydr (Protonix) 40 Mg Tab, 40 MG PO DAILY for 60 Days, #60 TAB Prov:[facility] 02/16/25 Sucralfate (Sucralfate) 1 Gm Tab, 1 GM PO TIDWMEALS for 30 Days, #90 TAB Before meals Prov:[facility] ROY [facility] 02/16/25 Sulfamethoxazole W/Trimethopri (Bactrim Ds Tablet) 1 Tab Tb, 1 TAB PO Q12HR for 14 Days, #28 TAB Prov:[facility] 02/16/25 Tamsulosin Hcl (Tamsulosin Hcl) 0.4 Mg Cap, 2 CAP PO DAILY, #60 CAP 5 Refills Prov:BRANDI HOPPER [facility] 10/04/24 Cilostazol (Cilostazol) 100 Mg Tab, 1 TAB PO BID, #60 TAB 5 Refills Prov:BRANDI HOPPER [facility] 10/04/24 Nicotine (Nicoderm 21MG/24HR) 1 Patch Ph, 1 PATCH TD DAILY for 30 Days, #30 PATCH Prov:BRANDI HOPPER [facility] 12/24/24 Minoxidil (Loniten) 2.5 Mg Tb, 5 MG PO DAILY for 30 Days, #60 TAB [facility] 10/04/24 Lisinopril (Lisinopril) 5 Mg Tab, 5 MG PO DAILY for 30 Days, #30 TAB [facility] 10/04/24 Hydralazine HCl (Hydralazine HCl) 25 Mg Tab, 50 MG PO Q8HR for 30 Days, #180 TAB Prov:[facility] 10/04/24 Atorvastatin Calcium (ATORVASTATIN CALCIUM) 20 Mg Tab, 80 MG PO HS for 30 Days, #120 TAB [facility] 10/04/24 Aspirin (Aspirin Low Dose) 81 Mg Tab, 81 MG PO DAILY for 30 Days, #30 TAB [facility] 10/04/24 Current Medications Current Medications Medications (Trade) Dose Ordered Sig/Omar Route PRN Reason Start Time Stop Time Status Last Admin Aspirin (Ecotrin Enteric Coated Tablet) 81 mg DAILY PO 06/05/25 10:00 Atorvastatin Calcium (Lipitor) 80 mg HS PO 06/04/25 22:00 Cilostazol (Pletal) 100 mg BID PO 06/04/25 22:00 Furosemide (Lasix Tablet) 20 mg DAILY PO 06/05/25 10:00 Hydralazine HCl (Apresoline Tablet) 50 mg Q8HR PO 06/04/25 22:00 Lisinopril (Zestril Tablet) 5 mg DAILY PO 06/05/25 10:00 Minoxidil (Loniten Tablet) 5 mg DAILY PO 06/05/25 10:00 Nicotine (Nicoderm 21MG/ 24HR) 1 patch DAILY TD 06/05/25 10:00 Pantoprazole Sodium (Protonix Tablet) 40 mg DAILY PO 06/05/25 10:00 Sucralfate (Carafate Tab) 1 gm TIDWMEALS PO 06/04/25 18:00 Tamsulosin HCl (Flomax) 0.4 mg QPM PO 06/04/25 18:00 Sodium Chloride (Saline Lock Ns) 10 ml Q8HR IV 06/04/25 22:00 Docusate Sodium (Colace Capsule) 100 mg BIDPRN PRN PO FOR CONSTIPATION 06/04/25 17:30 Acetaminophen (Tylenol Tablet) 650 mg Q6HP PRN PO PAIN SCALE 1-3 OR TEMP>100.4 06/04/25 17:30 Acetaminophen/ Hydrocodone Bitart (Max 5/325MG Tab) 1 tab Q4HP PRN PO MODERATE PAIN (4-6 PAIN SCALE) 06/04/25 17:30 Ondansetron HCl (Zofran) 4 mg Q4HP PRN IV NAUSEA / VOMITING 06/04/25 17:30 Enoxaparin Sodium (Lovenox) 30 mg DAILY SC 06/05/25 10:00 Vancomycin HCl 0 ml @ 0 mls/hr UD IV 06/04/25 17:30 Piperacillin Sod/ Tazobactam Sod 100 ml @ 25 mls/hr Q8HR IV 06/04/25 22:00 Vital Signs Vital Signs Date Time Temp Pulse Resp B/P (MAP) Pulse Ox O2 Delivery O2 Flow Rate FiO2 06/04/25 15:02 95 98 Room Air 06/04/25 15:02 18 133/68 06/04/25 13:45 97.3 97.3 Physical Exam gen 65 y.o. man, lying in bed. mild distress HEENT: AT/NC Heart: RRR Lung: CTA b/l Abd: soft, non-tender, non-distended Msk: no edema. Left foot wrapped in dressing. Smell fall. Gangrenous neuro: Awake, alert, and oriented, strength and sensation intact. SEPSIS Sepsis Screen Date sepsis recognized/suspect: Jun 04, 2025 Time Sepsis recognized/suspect: 1345 Recent Procedure: No On Antibiotic Therapy: No Respiratory Rate >20: No Heart Rate >90: Yes Temp<36 C (96.8 F) or >38.3 C: No SBP <90 or MAP <65 mmHG: No New Acute Mental Status Change: No Is the patient on CPAP, BIPAP,: No Physician Orders Wound Culture W/ Gs (06/04/25 13:52) Aspirin Enteric Coated Tablet (Ecotrin E (06/05/25 10:00) Atorvastatin (Lipitor) (06/04/25 22:00) Cilostazol (Pletal) (06/04/25 22:00) Furosemide Tablet (Lasix Tablet) (06/05/25 10:00) Hydralazine Hcl Tablet (Apresoline Table (06/04/25 22:00) Lisinopril Tablet (Zestril Tablet) (06/05/25 10:00) Minoxidil Tablet (Loniten Tablet) (06/05/25 10:00) Nicotine 21mg/24hr (Nicoderm 21mg/24hr) (06/05/25 10:00) Pantoprazole Tablet (Protonix Tablet) (06/05/25 10:00) Sucralfate Tab (Carafate Tab) (06/04/25 18:00) Tamsulosin Hydrochloride (Flomax) (06/04/25 18:00) Admit (06/04/25:28) Code Status (06/04/25:) Vital Signs .PER UNIT PROTOCOL (06/04/25:28) Review Orders With Adm.Md (06/04/25:28) Encourage Activity As Tolerate (06/04/25:28) Sodium Chloride Lock (Saline Lock Ns) (06/04/25 22:00) Docusate Sodium Capsule (Colace Capsule) (06/04/25 17:30) Acetaminophen Tablet (Tylenol Tablet) (06/04/25 17:30) Notify Md Of Changes From Base (06/04/25:28) Advance Directive (06/04/25:) Patient Condition (06/04/25:28) Allergies (06/04/25:28) Hydrocodone-Acet 5/325mg Tab (Max 5/32 (06/04/25 17:30) Ondansetron Hcl (Zofran) (06/04/25 17:30) Complete Blood Count (06/05/25 05:00) Complete Blood Count (06/06/25 05:00) Complete Blood Count (06/07/25 05:00) Complete Blood Count (06/08/25 05:00) Complete Blood Count (06/09/25 05:00) Comprehensive Metabolic Panel (06/05/25 05:00) Comprehensive Metabolic Panel (06/06/25 05:00) Comprehensive Metabolic Panel (06/07/25 05:00) Comprehensive Metabolic Panel (06/08/25 05:00) Comprehensive Metabolic Panel (06/09/25 05:00) Vancomycin Per Pharmacy (06/04/25 17:30) Piperacillin-Tazob 3.375gm (Zosyn 3.375g (06/04/25 22:00) Podiatry Consult (06/04/25 17:37) Sequential Compression Device (06/04/25 17:44) Npo (Nothing By Mouth) Diet (06/05/25 Breakfast) Enoxaparin Sodium (Lovenox) (06/05/25 10:00) Vancomycin 750mg Kit (Vancomycin Hcl) (06/04/25 19:00) Vancomycin,Random (06/05/25 05:00) Vital Signs Date Time Temp Pulse Resp B/P (MAP) Pulse Ox O2 Delivery O2 Flow Rate FiO2 06/04/25 15:02 95 98 Room Air 06/04/25 15:02 95 18 133/68 06/04/25 15:02 95 18 133/68 (89) 98 06/04/25 13:45 97.3 95 18 117/67 96 97.3 Laboratory Tests Test 06/04/25 14:05 White Blood Count 8.0 10^3/uL (4.4-10.8) Medications Medications Dose Ordered Sig/Omar Route Start Time Stop Time Status Last Admin Dose Admin Morphine Sulfate 4 mg ONCE ONCE IV 06/04/25 14:45 06/04/25 14:46 DC 06/04/25 15:02 Ondansetron HCl 4 mg ONCE ONCE IV 06/04/25 14:45 06/04/25 14:46 DC 06/04/25 15:00 Piperacillin Sod/ Tazobactam Sod 100 ml @ 100 mls/hr ONCE ONCE IV 06/04/25 17:45 06/04/25 18:44 DC 06/04/25 18:18 Results Labs Test 06/04/25 14:05 Range/Units White Blood Count 8.0 4.4-10.8 10^3/uL Red Blood Count 4.14 L 4.5-5.90 10^6/uL Hemoglobin 12.7 L 13.5-17.5 g/dL Hematocrit 37.4 L 41.0-53.0 % Mean Corpuscular Volume 90.4 80.0-100.0 fL Mean Corpuscular Hemoglobin 30.6 28.0-32.0 pg Mean Corpuscular Hemoglobin Concent 33.9 32.0-36.0 g/dL Red Cell Distribution Width 16.7 H 11.8-14.3 % Platelet Count 394 140-450 10^3/uL Mean Platelet Volume 7.5 6.9-10.8 fL Neutrophils (%) (Auto) 59.0 37.0-80.0 % Lymphocytes (%) (Auto) 26.0 10.0-50.0 % Monocytes (%) (Auto) 10.3 0.0-12.0 % Eosinophils (%) (Auto) 4.1 0.0-7.0 % Basophils (%) (Auto) 0.6 0.0-2.0 % Neutrophils # (Auto) 4.7 1.6-8.6 10 ^3/uL Lymphocytes # (Auto) 2.1 0.4-5.4 10 ^3/uL Monocytes # (Auto) 0.8 0-1.3 10 ^3/uL Eosinophils # (Auto) 0.3 0-0.8 10 ^3/uL Basophils # (Auto) 0 0-0.2 10 ^3/uL Nucleated Red Blood Cells 0.0 % Erythrocyte Sedimentation Rate 47 H 0-20 mm/hr Sodium Level 136 136-145 mmol/L Potassium Level 3.8 3.5-5.1 mmol/L Chloride Level 104 98-107 mmol/L Carbon Dioxide Level 27 20-31 mmol/L Anion Gap 5 5-15 Blood Urea Nitrogen 7 L 9-23 mg/dL Creatinine 0.64 L 0.700-1.30 mg/dL Glomerular Filtration Rate Calc 104 >90 mL/min BUN/Creatinine Ratio 10.9 10.0-20.0 Serum Glucose 106 74-106 mg/dL Calcium Level 9.3 8.7-10.4 mg/dL C-Reactive Protein High Sensitivity 3.60 H <1.0 mg/dL Primary Diagnosis Left lower extremity cellulitis and dry gangrene Plan Vanc and Zosyn for broad-spectrum antibiotics. Follow the blood culture wound culture CRP and ESR Podiatry consult for possible amputation Control Resume home meds Antiemetic Full code SCD for DVT prophylaxis No GI prophylaxis needed Plan discussed with: Patient Problems List: (1) Dry gangrene Status: Acute Date of Service: Jun 04, 2025 Billing Provider: LIZ MAXWELL MD Common Visit Codes: [id number] INP/OBS CARE (MOD) LIZ MAXWELL MD Jun 04, 2025 16:59
[2025-06-04] MEDS ORDERED: ONDANSETRON HCL 4 MG/2 ML VIAL IV PRN (17:30)
[2025-06-04] MEDS ORDERED: VANCOMYCIN PER PHARMACY 0 MG IV SCH (17:30)
[2025-06-04] MEDS ORDERED: ACETAMINOPHEN 325 MG TAB PO PRN (17:30)
[2025-06-04] MEDS: PIPERACILLIN-TAZOB 3.375GM 100 ML IV ONE (18:18)
[2025-06-04] MEDS: HYDROcodone-ACET 5/325MG TAB PO PRN (20:14)
[2025-06-04] MEDS: TAMSULOSIN HYDROCHLORIDE 0.4 MG CAP PO SCH (20:14)
[2025-06-04] MEDS: SUCRALFATE 1 GM TAB PO SCH (20:15)
[2025-06-04] MEDS: VANCOMYCIN 750MG KIT 100 ML IV ONE (20:15)
[2025-06-04] MEDS: SODIUM CHLOR 0.9% PF (SALINE LOCK) 10ML VIAL/SYR IV SCH (22:00)
[2025-06-05] MEDS: ATORVASTATIN 20 MG TAB PO SCH (00:04)
[2025-06-05] MEDS: PIPERACILLIN-TAZOB 3.375GM 100 ML IV SCH (00:10)
[2025-06-05] MEDS: CILOSTAZOL 100 MG TAB PO SCH (00:25)
[2025-06-05 05:09] LABS: Hematocrit 39.2 % (41.0-53.0); Hemoglobin 13.1 g/dL (13.5-17.5); Mean Corpuscular Hemoglobin 30.6 pg (28.0-32.0); Mean Corpuscular Volume 92.0 fL (80.0-100.0); Nucleated Red Blood Cells % 0.1 %
[2025-06-05 05:37] LABS: Alanine Aminotransferase 10 U/L (7-40); Albumin 4.2 g/dL (3.2-4.8); Alkaline Phosphatase 94 U/L (46-116); Anion Gap 7 (5-15); BUN/Creatinine Ratio 8.8 (10.0-20.0); Calcium 9.4 mg/dL (8.7-10.4); Carbon Dioxide 22 mmol/L (20-31); Chloride 106 mmol/L (98-107); Potassium 4.0 mmol/L (3.5-5.1)
[2025-06-05 05:38] LABS: Bilirubin, Total 0.4 mg/dL (0.2-1.0); Blood Urea Nitrogen 6 mg/dL (9-23); Glucose 111 mg/dL (74-106); Sodium 135 mmol/L (136-145); Total Protein 8.2 g/dL (5.7-8.2)
[2025-06-05] MEDS: FUROSEMIDE 20 MG TAB PO SCH (10:00)
[2025-06-05] MEDS: PANTOPRAZOLE 40 MG TAB PO SCH (10:00)
[2025-06-05] MEDS: ASPirin-EC 81 mg tab PO SCH (10:22)
[2025-06-05] MEDS: VANCOMYCIN 1GM/250ML KIT 250 ML IV SCH (10:22)
[2025-06-05] MEDS: MINOXIDIL 2.5 MG TAB PO SCH (10:24)
[2025-06-05] MEDS: ENOXAPARIN SOD 30 MG/0.3 ML SYRINGE SC SCH (10:25)
[2025-06-05] MEDS: LISINOPRIL 5 MG TAB PO SCH (10:26)
[2025-06-05] MEDS: NICOTINE 21MG/24 HR TOPICAL PATCH TD SCH (10:26)
--- NOTE | 2025-06-05 11:57 | DVHPN2 ---
Subjective The patient seen and examined at bedside. Complains of pain in the leg. Reviewed: Care Plan, H&P, Labs, Medications, Previous Orders, Radiology Changes from previous H/P or p: No Changes Objective Vitals Vital Signs Date Time Temp Pulse Resp B/P (MAP) Pulse Ox O2 Delivery O2 Flow Rate FiO2 06/05/25 10:26 125/76 06/05/25 08:10 98.0 81 15 96 98.0 06/04/25 15:02 Room Air Intake/Output Intake and Output 06/05/25 06:59 Intake Total 200 ml Balance 200 ml Intake IV Total 200 ml General Appearance: Alert, Oriented X3, Cooperative, No acute distress HEENT: Atraumatic, PERRLA, EOMI, Mucous membr. moist/pink Neck: Supple Lungs: Clear to auscultation, Normal air movement Cardiovascular: Regular rate, Normal S1, Normal S2, No murmurs, Gallops, Rubs Abdomen: Normal bowel sounds, Soft, No tenderness Neuro: Cranial nerves 3-12 NL Psych/Mental Status: Mental status NL Medications Current Medications Medications Dose Ordered Sig/Omar Route Start Time Stop Time Status Last Admin Dose Admin Aspirin 81 mg DAILY PO 06/05/25 10:00 06/05/25 10:22 81 MG Atorvastatin Calcium 80 mg HS PO 06/04/25 22:00 06/05/25 00:04 80 MG Cilostazol 100 mg BID PO 06/04/25 22:00 06/05/25 00:25 100 MG Furosemide 20 mg DAILY PO 06/05/25 10:00 06/05/25 10:00 20 MG Hydralazine HCl 50 mg Q8HR PO 06/04/25 22:00 Lisinopril 5 mg DAILY PO 06/05/25 10:00 06/05/25 10:26 5 MG Minoxidil 5 mg DAILY PO 06/05/25 10:00 06/05/25 10:24 5 MG Nicotine 1 patch DAILY TD 06/05/25 10:00 06/05/25 10:26 1 PATCH Pantoprazole Sodium 40 mg DAILY PO 06/05/25 10:00 06/05/25 10:00 40 MG Sucralfate 1 gm TIDWMEALS PO 06/04/25 18:00 06/05/25 09:31 1 GM Tamsulosin HCl 0.4 mg QPM PO 06/04/25 18:00 06/04/25 20:14 0.4 MG Sodium Chloride 10 ml Q8HR IV 06/04/25 22:00 06/05/25 06:27 10 ML Docusate Sodium 100 mg BIDPRN PRN PO 06/04/25 17:30 Acetaminophen 650 mg Q6HP PRN PO 06/04/25 17:30 Acetaminophen/ Hydrocodone Bitart 1 tab Q4HP PRN PO 06/04/25 17:30 06/05/25 09:30 1 TAB Ondansetron HCl 4 mg Q4HP PRN IV 06/04/25 17:30 Enoxaparin Sodium 30 mg DAILY SC 06/05/25 10:00 06/05/25 10:25 30 MG Vancomycin HCl 0 ml @ 0 mls/hr UD IV 06/04/25 17:30 Piperacillin Sod/ Tazobactam Sod 100 ml @ 25 mls/hr Q8HR IV 06/04/25 22:00 06/05/25 06:00 25 MLS/HR Vancomycin HCl 250 ml @ 250 mls/hr Q12H IV 06/05/25 10:00 06/05/25 10:22 250 MLS/HR Laboratory Results Laboratory Tests 06/05/25 04:36 Chemistry Test 06/04/25 14:05 06/05/25 04:36 Calcium Level 9.3 mg/dL (8.7-10.4) 9.4 mg/dL (8.7-10.4) Albumin 4.2 g/dL (3.2-4.8) Total Protein 8.2 g/dL (5.7-8.2) LFT Test 06/05/25 04:36 Alanine Aminotransferase (ALT) 10 U/L (7-40) Alkaline Phosphatase 94 U/L (46-116) Aspartate Amino Transferase (AST) 18 U/L (13-40) Total Bilirubin 0.4 mg/dL (0.2-1.0) Labs and/or images reviewed: Labs reviewed by me Assessment/Plan Assessment/Plan Left lower extremity cellulitis and dry gangrene History of left foot 3rd 4th and 5th digit amputation in February as they were a gangrenous 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 PVD Hyperlipidemia Continue current management. Continue IV antibiotic. Continue pain medication Waiting for vascular and qualified craft worker electrician to see the patient. Continue statin. Continue wound care. Plan discussed with: Patient Date of Service: Jun 05, 2025 Billing Provider: GRIFFIN DEWEY MD Common Visit Codes: [id number] INP/OBS CARE(HIGH) GRIFFIN DEWEY MD Jun 05, 2025 11:57
[2025-06-05 14:58] VITALS: BP 94/53; PULSE 90; RESP 18; TEMP 98.2; O2SAT 96
--- NOTE | 2025-06-05 14:58 | DVH ---
CLINICAL HISTORY: Infection. Rule out osteomyelitis. TECHNIQUE: Multi sequence multi planar MRI images of the left foot were obtained without IV contrast . COMPARISON: Radiographs dated 05/11/2025. FINDINGS: Postsurgical changes of prior amputation of the mid to distal aspects of the 3rd, 4th, and 5th metatarsals. There is a wound at the amputation stump with surrounding subcutaneous edema, possi ble cellulitis and/or phlegmon in the appropriate clinical setting. No definite organized fluid colle ction identified to suggest abscess, although limited evaluation for abscess on noncontrast enhanced exam. There are patchy areas of t2/stir hyperintense signal of the 3rd through 5th metatarsal amputat ion stumps, which may be due to reactive marrow signal changes. Possible T1 hypointense signal of the distal aspect of the 3rd metatarsal, for which osteomyelitis can not be excluded. No definite eviden ce for osteomyelitis of the 4th or 5th metatarsal amputation stumps. There is also a wound at the dorsal aspect of the midfoot near the level of the cuneiforms navicular, also with adjacent subcutaneous edema, possible cellulitis and/or phlegmon in the appropriate clinic al setting. No definite abscess identified on limited noncontrast enhanced exam. There are patchy are as of t2/stir hyperintense signal in the medial and middle cuneiforms, may be reactive marrow signal changes with no definite T1 hypointense signal to suggest osteomyelitis. 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 No evidence of cortical collapse at this time. Additional scattered areas of serpiginous m arrow signal abnormality are seen, including at the 1st metatarsal shaft and head, which may be due t o bone infarcts/osteonecrosis. Possible additional areas of bone infarcts, , including of the cuneifo malachi, navicular, and 1st digit phalanges, although limited evaluation due to motion artifact. Prominent T2 hyperintense signal in the intrinsic musculature of the left foot, may be due to myositi s or due to acute/subacute component of denervation. Motion artifact limits evaluation. IMPRESSION: 1. Motion limited study. 2. Postsurgical changes of prior amputation of the 3rd, 4th, and 5th metatarsals with adjacent wound subcutaneous edema, likely cellulitis and/or phlegmon in the appropriate clinical setting. Possible m ild osteomyelitis of the distal aspect of the 3rd metatarsal amputation stump. Likely reactive marrow changes in the 4th and 5th metatarsal amputation stumps. 3. Wound at the dorsal aspect of the midfoot near the cuneiforms and navicular with adjacent subcutan eous edema, likely cellulitis in the appropriate clinical setting. No definite osteomyelitis demonstr ated, likely reactive marrow changes in the medial and middle cuneiforms. Correlate with clinical fin dings. 4. Osteonecrosis in the body of the talus, including the talar dome without evidence of cortical luh apse at this time. 5. Additional areas of serpiginous signal abnormality are seen as described above, suspected bone inf arcts/ osteonecrosis, although limited evaluation due to artifact. 6. Additional findings as described above.
--- NOTE | 2025-06-05 15:50 | DVHCONRES ---
Date Seen: Jun 05, 2025 Resident Creating Document: CINDY HAYWOOD Jr., MD Referring Physician er History of Present Illness 65-year-old male presents here with left foot wound. He states he has had these wounds since February of this year when he had left foot 3rd 4th and 5th digit amputation as they were a gangrenous. He states since then he has had his intense pain to the left lower extremity and today the pain was even worse. He states he has been taking Tylenol and ibuprofen for pain only and it does not suffice. He states he is wants the leg amputated. Wound care nurse has been coming 3 times a week for dressing change and applying Betadine . He has a previous history of amputation to the right leg as that leg was gangrenous. Denies any fevers chills. Denies any purulent discharge from the wound. Patient with significant left foot rest pain. I saw in the office on . Patient is requesting above knee amputation at this time. Patient will need medical clearance prior to surgery tomorrow. Past Medical History Hypertension diabetes peripheral vascular disease Past Surgical History Right above knee amputation, left 4th and 5th toe amputation Family History: FH: cancer G8 MOTHER FH: lung cancer G8 FATHER Hepatitis C 19 CHILD Social History Continues to smoke and drink alcohol. Allergies: Coded Allergies: NO KNOWN ALLERGIES (Unverified , 09/30/24) Home Meds Active Scripts Furosemide (Furosemide) 20 Mg Tab, 20 MG PO DAILY for 30 Days, #30 TAB Prov:[facility] 02/16/25 Pantoprazole Sodium Sesquihydr (Protonix) 40 Mg Tab, 40 MG PO DAILY for 60 Days, #60 TAB Prov:[facility] 02/16/25 Sucralfate (Sucralfate) 1 Gm Tab, 1 GM PO TIDWMEALS for 30 Days, #90 TAB Before meals Prov:[facility] 02/16/25 Sulfamethoxazole W/Trimethopri (Bactrim Ds Tablet) 1 Tab Tb, 1 TAB PO Q12HR for 14 Days, #28 TAB Prov:BUD ROY 02/16/25 Tamsulosin Hcl (Tamsulosin Hcl) 0.4 Mg Cap, 2 CAP PO DAILY, #60 CAP 5 Refills Prov:GIRDHAR,[facility] 10/04/24 Cilostazol (Cilostazol) 100 Mg Tab, 1 TAB PO BID, #60 TAB 5 [facility]ills [facility] 10/04/24 Nicotine (Nicoderm 21MG/24HR) 1 Patch Ph, 1 PATCH TD DAILY for 30 Days, #30 PATCH [facility]/04/24 Minoxidil (Loniten) 2.5 Mg Tb, 5 MG PO DAILY for 30 Days, #60 TAB Prov:[facility] 10/04/24 Lisinopril (Lisinopril) 5 Mg Tab, 5 MG PO DAILY for 30 Days, #30 TAB Prov:[facility] 10/04/24 Hydralazine HCl (Hydralazine HCl) 25 Mg Tab, 50 MG PO Q8HR for 30 Days, #180 TAB Prov:[facility] 10/04/24 Atorvastatin Calcium (ATORVASTATIN CALCIUM) 20 Mg Tab, 80 MG PO HS for 30 Days, #120 TAB [facility] 10/04/24 Aspirin (Aspirin Low Dose) 81 Mg Tab, 81 MG PO DAILY for 30 Days, #30 TAB Prov:[facility] 10/04/24 Current Medications Current Medications Medications (Trade) Dose Ordered Sig/Omar Route PRN Reason Start Time Stop Time Status Last Admin Aspirin (Ecotrin Enteric Coated Tablet) 81 mg DAILY PO 06/05/25 10:00 06/05/25 10:22 Atorvastatin Calcium (Lipitor) 80 mg HS PO 06/04/25 22:00 06/05/25 00:04 Cilostazol (Pletal) 100 mg BID PO 06/04/25 22:00 06/05/25 00:25 Furosemide (Lasix Tablet) 20 mg DAILY PO 06/05/25 10:00 06/05/25 10:00 Hydralazine HCl (Apresoline Tablet) 50 mg Q8HR PO 06/04/25 22:00 Lisinopril (Zestril Tablet) 5 mg DAILY PO 06/05/25 10:00 06/05/25 10:26 Minoxidil (Loniten Tablet) 5 mg DAILY PO 06/05/25 10:00 06/05/25 10:24 Nicotine (Nicoderm 21MG/ 24HR) 1 patch DAILY TD 06/05/25 10:00 06/05/25 10:26 Pantoprazole Sodium (Protonix Tablet) 40 mg DAILY PO 06/05/25 10:00 06/05/25 10:00 Sucralfate (Carafate Tab) 1 gm TIDWMEALS PO 06/04/25 18:00 06/05/25 12:36 Tamsulosin HCl (Flomax) 0.4 mg QPM PO 06/04/25 18:00 06/04/25 20:14 Sodium Chloride (Saline Lock Ns) 10 ml Q8HR IV 06/04/25 22:00 06/05/25 15:28 Docusate Sodium (Colace Capsule) 100 mg BIDPRN PRN PO FOR CONSTIPATION 06/04/25 17:30 Acetaminophen (Tylenol Tablet) 650 mg Q6HP PRN PO PAIN SCALE 1-3 OR TEMP>100.4 06/04/25 17:30 Acetaminophen/ Hydrocodone Bitart ([place] 5/325MG Tab) 1 tab Q4HP PRN PO MODERATE PAIN (4-6 PAIN SCALE) 06/04/25 17:30 06/05/25 15:27 Ondansetron HCl (Zofran) 4 mg Q4HP PRN IV NAUSEA / VOMITING 06/04/25 17:30 Enoxaparin Sodium (Lovenox) 30 mg DAILY SC 06/05/25 10:00 06/05/25 10:25 Vancomycin HCl 0 ml @ 0 mls/hr UD IV 06/04/25 17:30 Piperacillin Sod/ Tazobactam Sod 100 ml @ 25 mls/hr Q8HR IV 06/04/25 22:00 06/05/25 15:26 Vancomycin HCl 250 ml @ 250 mls/hr Q12H IV 06/05/25 10:00 06/05/25 10:22 Review of Systems All systems reviewed otherwise negative other than what is in the HPI. Vital Signs Vital Signs Date Time Temp Pulse Resp B/P (MAP) Pulse Ox O2 Delivery O2 Flow Rate FiO2 06/05/25 15:01 94/53 06/05/25 14:58 98.2 90 18 96 98.2 06/04/25 15:02 Room Air Physical Exam Left foot has dry gangrene of the lateral 2/3 of the foot. No palpable pulses below the femoral artery. Right side above knee amputation healed well Labs/Diagnostic Data Labs Test 06/05/25 04:36 06/04/25 14:05 Range/Units White Blood Count 6.7 4.4-10.8 10^3/uL Red Blood Count 4.26 L 4.5-5.90 10^6/uL Hemoglobin 13.1 L 13.5-17.5 g/dL Hematocrit 39.2 L 41.0-53.0 % Mean Corpuscular Volume 92.0 80.0-100.0 fL Mean Corpuscular Hemoglobin 30.6 28.0-32.0 pg Mean Corpuscular Hemoglobin Concent 33.3 32.0-36.0 g/dL Red Cell Distribution Width 16.8 H 11.8-14.3 % Platelet Count 313 140-450 10^3/uL Mean Platelet Volume 7.4 6.9-10.8 fL Neutrophils (%) (Auto) 49.0 37.0-80.0 % Lymphocytes (%) (Auto) 32.8 10.0-50.0 % Monocytes (%) (Auto) 12.2 H 0.0-12.0 % Eosinophils (%) (Auto) 5.1 0.0-7.0 % Basophils (%) (Auto) 0.9 0.0-2.0 % Neutrophils # (Auto) 3.3 1.6-8.6 10 ^3/uL Lymphocytes # (Auto) 2.2 0.4-5.4 10 ^3/uL Monocytes # (Auto) 0.8 0-1.3 10 ^3/uL Eosinophils # (Auto) 0.3 0-0.8 10 ^3/uL Basophils # (Auto) 0.1 0-0.2 10 ^3/uL Nucleated Red Blood Cells 0.1 % Sodium Level 135 L 136-145 mmol/L Potassium Level 4.0 3.5-5.1 mmol/L Chloride Level 106 98-107 mmol/L Carbon Dioxide Level 22 20-31 mmol/L Anion Gap 7 5-15 Blood Urea Nitrogen 6 L 9-23 mg/dL Creatinine 0.68 L 0.700-1.30 mg/dL Glomerular Filtration Rate Calc 102 >90 mL/min BUN/Creatinine Ratio 8.8 L 10.0-20.0 Serum Glucose 111 H 74-106 mg/dL Calcium Level 9.4 8.7-10.4 mg/dL Total Bilirubin 0.4 0.2-1.0 mg/dL Aspartate Amino Transferase (AST) 18 13-40 U/L Alanine Aminotransferase (ALT) 10 7-40 U/L Alkaline Phosphatase 94 46-116 U/L Total Protein 8.2 5.7-8.2 g/dL Albumin 4.2 3.2-4.8 g/dL Random Vancomycin Level 7.6 5-10 ug/mL Erythrocyte Sedimentation Rate 47 H 0-20 mm/hr C-Reactive Protein High Sensitivity 3.60 H <1.0 mg/dL Assessment Left leg severe peripheral vascular disease, gangrene of the left foot. We will need medical clearance prior to above knee amputation tomorrow. NPO after midnight Plan/Recommendation Left leg severe peripheral vascular disease, gangrene of the left foot. We will need medical clearance prior to above knee amputation tomorrow. NPO after midnight Plan discussed with: Patient CINDY HAYWOOD Jr., MD Jun 05, 2025 15:50
[2025-06-05 17:00] VITALS: BP 121/67; PULSE 84; RESP 16; TEMP 99.6; O2SAT 96
[2025-06-05] MEDS ORDERED: FLUO-126 PO (17:59)
[2025-06-05 20:00] VITALS: PULSE 65; RESP 16; O2SAT 98
[2025-06-05 21:00] VITALS: BP 120/48; PULSE 65; RESP 17; TEMP 98.1; O2SAT 96
[2025-06-06 01:00] VITALS: BP 105/47; PULSE 81; RESP 17; TEMP 97.3; O2SAT 99
[2025-06-06 05:00] VITALS: BP 116/72; PULSE 78; RESP 17; TEMP 97.5; O2SAT 97
[2025-06-06 05:44] LABS: Hematocrit 32.7 % (41.0-53.0); Hemoglobin 11.3 g/dL (13.5-17.5); Mean Corpuscular Hemoglobin 30.9 pg (28.0-32.0); Mean Corpuscular Volume 89.5 fL (80.0-100.0); Nucleated Red Blood Cells % 0.0 %
[2025-06-06 05:56] LABS: Albumin 3.9 g/dL (3.2-4.8); Alkaline Phosphatase 75 U/L (46-116); Anion Gap 4 (5-15); BUN/Creatinine Ratio 15.4 (10.0-20.0); Blood Urea Nitrogen 10 mg/dL (9-23); Calcium 8.7 mg/dL (8.7-10.4); Carbon Dioxide 26 mmol/L (20-31); Glucose 98 mg/dL (74-106); Potassium 3.5 mmol/L (3.5-5.1); Sodium 139 mmol/L (136-145); Total Protein 6.8 g/dL (5.7-8.2)
[2025-06-06 05:57] LABS: Bilirubin, Total 0.3 mg/dL (0.2-1.0)
[2025-06-06 06:00] LABS: Alanine Aminotransferase < 9 U/L (7-40); Chloride 109 mmol/L (98-107)
[2025-06-06 08:00] VITALS: BP 124/63; PULSE 78; RESP 14; TEMP 97.6; O2SAT 95
--- NOTE | 2025-06-06 11:38 | DVHPN2 ---
Subjective The patient seen and examined at bedside. Complains of pain in the leg. Waiting for surgery. Reviewed: Care Plan, H&P, Labs, Medications, Previous Orders, Radiology Changes from previous H/P or p: No Changes Objective Vitals Vital Signs Date Time Temp Pulse Resp B/P (MAP) Pulse Ox O2 Delivery O2 Flow Rate FiO2 06/06/25 08:00 Room Air* 0 21 06/06/25 08:00 97.6 78 14 124/63 (83) 95 97.6 Intake/Output Intake and Output 06/06/25 07:00 Intake Total 950 ml Balance 950 ml Intake Oral 600 ml IV Total 350 ml # Voids 2 General Appearance: Alert, Oriented X3, Cooperative, No acute distress HEENT: Atraumatic, PERRLA, EOMI, Mucous membr. moist/pink Neck: Supple Lungs: Clear to auscultation, Normal air movement Cardiovascular: Regular rate, Normal S1, Normal S2, No murmurs, Gallops, Rubs Abdomen: Normal bowel sounds, Soft, No tenderness Neuro: Cranial nerves 3-12 NL Psych/Mental Status: Mental status NL Medications Current Medications Medications Dose Ordered Sig/Omar Route Start Time Stop Time Status Last Admin Dose Admin Aspirin 81 mg DAILY PO 06/05/25 10:00 06/05/25 10:22 81 MG Atorvastatin Calcium 80 mg HS PO 06/04/25 22:00 06/05/25 22:41 80 MG Cilostazol 100 mg BID PO 06/04/25 22:00 06/05/25 22:40 100 MG Furosemide 20 mg DAILY PO 06/05/25 10:00 06/05/25 10:00 20 MG Hydralazine HCl 50 mg Q8HR PO 06/04/25 22:00 Lisinopril 5 mg DAILY PO 06/05/25 10:00 06/05/25 10:26 5 MG Minoxidil 5 mg DAILY PO 06/05/25 10:00 06/05/25 10:24 5 MG Nicotine 1 patch DAILY TD 06/05/25 10:00 06/06/25 09:11 1 PATCH Pantoprazole Sodium 40 mg DAILY PO 06/05/25 10:00 06/05/25 10:00 40 MG Sucralfate 1 gm TIDWMEALS PO 06/04/25 18:00 06/05/25 17:53 1 GM Tamsulosin HCl 0.4 mg QPM PO 06/04/25 18:00 06/05/25 17:53 0.4 MG Sodium Chloride 10 ml Q8HR IV 06/04/25 22:00 06/06/25 05:54 10 ML Docusate Sodium 100 mg BIDPRN PRN PO 06/04/25 17:30 Acetaminophen 650 mg Q6HP PRN PO 06/04/25 17:30 Acetaminophen/ Hydrocodone Bitart 1 tab Q4HP PRN PO 06/04/25 17:30 06/06/25 09:11 1 TAB Ondansetron HCl 4 mg Q4HP PRN IV 06/04/25 17:30 Enoxaparin Sodium 30 mg DAILY SC 06/05/25 10:00 06/05/25 10:25 30 MG Vancomycin HCl 0 ml @ 0 mls/hr UD IV 06/04/25 17:30 Piperacillin Sod/ Tazobactam Sod 100 ml @ 25 mls/hr Q8HR IV 06/04/25 22:00 06/06/25 05:39 25 MLS/HR Vancomycin HCl 250 ml @ 250 mls/hr Q12H IV 06/05/25 10:00 06/06/25 10:39 250 MLS/HR Laboratory Results Laboratory Tests 06/06/25 04:59 Chemistry Test 06/06/25 04:59 Albumin 3.9 g/dL (3.2-4.8) Calcium Level 8.7 mg/dL (8.7-10.4) Total Protein 6.8 g/dL (5.7-8.2) LFT Test 06/06/25 04:59 Alanine Aminotransferase (ALT) < 9 U/L (7-40) Alkaline Phosphatase 75 U/L (46-116) Aspartate Amino Transferase (AST) 13 U/L (13-40) Total Bilirubin 0.3 mg/dL (0.2-1.0) Labs and/or images reviewed: Labs reviewed by me Assessment/Plan Assessment/Plan Left lower extremity cellulitis and dry gangrene History of left foot 3rd 4th and 5th digit amputation in February as they were a gangrenous 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 PVD Hyperlipidemia Continue current management. Continue IV antibiotic. Continue pain medication Waiting for vascular and orthopedic cast specialist to see the patient. Continue statin. Continue wound care. This medical document was created using an electronic medical record system with [employer] direct computerized dictation system. Although this document has been carefully reviewed, there may still be some phonetic and typographical errors. These areas are purely typographical due to imperfections of the software programs, and do not reflect any compromise in the patient's medical care. Plan discussed with: Patient My Orders Orders - GRIFFIN DEWEY MD Procedure Category Date Status Time Mrsa Screen RON 06/05/25 In Process 18:15 Hepatitis B Surface LAB 06/05/25 In Process Antigen 18:15 Education - Smoking DELROY 06/05/25 In Process Cessation 18:15 * Dietary Consult CONS 06/05/25 Transmitted 19:03 * Wound Consult CONS 06/05/25 Transmitted Date of Service: Jun 06, 2025 Billing Provider: GRIFFIN DEWEY MD Common Visit Codes: [id number] INP/OBS CARE(HIGH) GRIFFIN DEWEY MD Jun 06, 2025 11:38
[2025-06-06 13:00] VITALS: BP 137/71; PULSE 70; RESP 18; TEMP 98.7; O2SAT 95
[2025-06-06] MEDS: BUPIVACAINE HCL 0.25% P/F 10 ML VIAL ONE (14:04)
[2025-06-06] MEDS: LIDOCAINE 1% HCL (LOCAL ANESTH.) INJ 20ML MDV ONE (14:04)
--- NOTE | 2025-06-06 14:35 | DVH ---
INDICATION: PRE-OP EVAL TECHNIQUE: Frontal view of the chest. COMPARISON: XY CHEST XRAY 1 VIEW on DOS: 02/07/25, XY CHEST PORTABLE on DOS: 01/28/25, XY CHEST PORTABL E on DOS: 10/02/24 FINDINGS: . The heart and mediastinal contours are grossly unremarkable. There is no evidence of pleural disea se. The lungs are clear. The bony structures of the chest are intact without fracture. IMPRESSION: 1. No evidence of acute disease.
[2025-06-06 15:57] LABS: INR 1.13 (0.9-1.15); Partial Thromboplastin Time 31.4 SEC (24.5-34.5); Prothrombin Time 11.8 sec (9.3-11.8)
[2025-06-06] MEDS: Glucerna Carbsteady SHAKE Vanilla 8oz PO SCH (18:20)
[2025-06-06 20:00] VITALS: PULSE 75; RESP 18; O2SAT 99
[2025-06-06 21:00] VITALS: BP 84/50; PULSE 42; RESP 16; TEMP 97.6; O2SAT 99
[2025-06-07] VITALS (17 sets, daily range): BP systolic 110–159; BP diastolic 52–74; PULSE 64–89; RESP 12–19; TEMP 97.6–98.1; O2SAT 94–100
[2025-06-07 06:43] LABS: Hematocrit 31.5 % (41.0-53.0); Hemoglobin 10.7 g/dL (13.5-17.5); Mean Corpuscular Hemoglobin 30.5 pg (28.0-32.0); Mean Corpuscular Volume 89.4 fL (80.0-100.0); Nucleated Red Blood Cells % 0.0 %
[2025-06-07 07:04] LABS: Albumin 3.8 g/dL (3.2-4.8); Alkaline Phosphatase 73 U/L (46-116); Anion Gap 5 (5-15); BUN/Creatinine Ratio 14.8 (10.0-20.0); Blood Urea Nitrogen 9 mg/dL (9-23); Calcium 8.7 mg/dL (8.7-10.4); Carbon Dioxide 25 mmol/L (20-31); Glucose 90 mg/dL (74-106); Potassium 3.7 mmol/L (3.5-5.1); Sodium 138 mmol/L (136-145); Total Protein 6.6 g/dL (5.7-8.2)
[2025-06-07 07:06] LABS: Alanine Aminotransferase < 9 U/L (7-40); Bilirubin, Total 0.3 mg/dL (0.2-1.0); Chloride 108 mmol/L (98-107)
[2025-06-07] MEDS: Juven Fruit Punch Powder PACKET 28.8gm PO SCH (10:00)
[2025-06-07] MEDS: VANCOMYCIN 750MG KIT 100 ML IV SCH (10:40)
[2025-06-07] MEDS: MUPIROCIN 2% OINT 15gm or 22gm FOR MRSA NARES EACHNOSTRI SCH (10:55)
--- NOTE | 2025-06-07 11:53 | DVHPN2 ---
Subjective The patient seen and examined at bedside. Complains of pain in the leg. Waiting for surgery. Reviewed: Care Plan, H&P, Labs, Medications, Previous Orders, Radiology Changes from previous H/P or p: No Changes Objective Vitals Vital Signs Date Time Temp Pulse Resp B/P (MAP) Pulse Ox O2 Delivery O2 Flow Rate FiO2 06/07/25 08:38 98.1 82 16 129/68 (88) 99 98.1 06/07/25 08:30 Room Air* 0 21 Intake/Output Intake and Output 06/07/25 07:00 Intake Total 1450 ml Output Total 800 ml Balance 650 ml Intake Oral 650 ml IV Total 800 ml Output Urine Total 800 ml # Voids 3 General Appearance: Alert, Oriented X3, Cooperative, No acute distress HEENT: Atraumatic, PERRLA, EOMI, Mucous membr. moist/pink Neck: Supple Lungs: Clear to auscultation, Normal air movement Cardiovascular: Regular rate, Normal S1, Normal S2, No murmurs, Gallops, Rubs Abdomen: Normal bowel sounds, Soft, No tenderness Neuro: Cranial nerves 3-12 NL Psych/Mental Status: Mental status NL Medications Current Medications Medications Dose Ordered Sig/Omar Route Start Time Stop Time Status Last Admin Dose Admin Aspirin 81 mg DAILY PO 06/05/25 10:00 06/05/25 10:22 81 MG Atorvastatin Calcium 80 mg HS PO 06/04/25 22:00 06/06/25 22:27 80 MG Cilostazol 100 mg BID PO 06/04/25 22:00 06/06/25 22:27 100 MG Furosemide 20 mg DAILY PO 06/05/25 10:00 06/05/25 10:00 20 MG Hydralazine HCl 50 mg Q8HR PO 06/04/25 22:00 06/06/25 22:27 50 MG Lisinopril 5 mg DAILY PO 06/05/25 10:00 06/05/25 10:26 5 MG Minoxidil 5 mg DAILY PO 06/05/25 10:00 06/05/25 10:24 5 MG Nicotine 1 patch DAILY TD 06/05/25 10:00 06/06/25 09:11 1 PATCH Pantoprazole Sodium 40 mg DAILY PO 06/05/25 10:00 06/07/25 10:46 40 MG Sucralfate 1 gm TIDWMEALS PO 06/04/25 18:00 06/06/25 17:46 1 GM Tamsulosin HCl 0.4 mg QPM PO 06/04/25 18:00 06/06/25 17:46 0.4 MG Sodium Chloride 10 ml Q8HR IV 06/04/25 22:00 06/07/25 06:04 10 ML Docusate Sodium 100 mg BIDPRN PRN PO 06/04/25 17:30 Acetaminophen 650 mg Q6HP PRN PO 06/04/25 17:30 Acetaminophen/ Hydrocodone Bitart 1 tab Q4HP PRN PO 06/04/25 17:30 06/07/25 10:55 1 TAB Ondansetron HCl 4 mg Q4HP PRN IV 06/04/25 17:30 Enoxaparin Sodium 30 mg DAILY SC 06/05/25 10:00 06/05/25 10:25 30 MG Vancomycin HCl 0 ml @ 0 mls/hr UD IV 06/04/25 17:30 Piperacillin Sod/ Tazobactam Sod 100 ml @ 25 mls/hr Q8HR IV 06/04/25 22:00 06/07/25 06:02 25 MLS/HR Enteral Nutritional Formula 28.8 gm DAILY PO 06/07/25 10:00 Enteral Nutritional Formula 240 ml TIDWM PO 06/06/25 18:00 06/06/25 18:20 240 ML Mupirocin 1 applic BID EACHNOSTRI 06/07/25 10:00 06/12/25 09:59 06/07/25 10:55 1 APPLIC Vancomycin HCl 100 ml @ 100 mls/hr Q12H IV 06/07/25 10:00 06/07/25 10:40 100 MLS/HR Laboratory Results Laboratory Tests 06/07/25 05:20 Chemistry Test 06/07/25 05:20 Albumin 3.8 g/dL (3.2-4.8) Calcium Level 8.7 mg/dL (8.7-10.4) Total Protein 6.6 g/dL (5.7-8.2) Coagulation Test 06/06/25 15:17 Prothrombin Time 11.8 sec (9.3-11.8) Prothrombin Time INR 1.13 (0.9-1.15) Activated Partial Thromboplast Time 31.4 SEC (24.5-34.5) LFT Test 06/07/25 05:20 Alanine Aminotransferase (ALT) < 9 U/L (7-40) Alkaline Phosphatase 73 U/L (46-116) Aspartate Amino Transferase (AST) 12 U/L (13-40) L Total Bilirubin 0.3 mg/dL (0.2-1.0) Microbiology Microbiology Date/Time Source Procedure Growth Status 06/05/25 18:20 Nose MRSA Screen - Final Methicillin Resistant S.aureus Complete Labs and/or images reviewed: Labs reviewed by me Assessment/Plan Assessment/Plan Left lower extremity cellulitis and dry gangrene History of left foot 3rd 4th and 5th digit amputation in February as they were a gangrenous 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 PVD Hyperlipidemia Continue current management. Continue IV antibiotic. Continue pain medication Surgery: amputation today. Continue statin. Continue wound care. This medical document was created using an electronic medical record system with [employer] direct computerized dictation system. Although this document has been carefully reviewed, there may still be some phonetic and typographical errors. These areas are purely typographical due to imperfections of the software programs, and do not reflect any compromise in the patient's medical care. Plan discussed with: Patient My Orders Orders - GRIFFIN DEWEY MD Procedure Category Date Status Time Precautions: Contact DELROY 06/06/25 In Process 14:16 Cleanse Wound With DELROY 06/06/25 In Process Mild Soap A 14:45 Nutritional PHA 06/07/25 In Process Supplements (Jose A 10:00 Nutritional PHA 06/06/25 In Process Supplements (Glucerna 18:00 Date of Service: Jun 07, 2025 Billing Provider: GRIFFIN DEWEY MD Common Visit Codes: [id number] INP/OBS CARE(HIGH) GRIFFIN DEWEY MD Jun 07, 2025 11:53
[2025-06-07] MEDS: BUPIVACAINE 0.25% INJ 50ML VIAL ONE (12:15)
[2025-06-07] MEDS: LIDOCAINE 1% HCL (LOCAL ANESTH.) INJ 20ML MDV ONE (12:15)
[2025-06-07] MEDS: BUPIVACAINE 0.5% P/F INJ 10 ML VIAL ONE (12:51)
[2025-06-07] MEDS ORDERED: MIDAZOLAM HCL 2MG/2ML 2ml VIAL (1mg/ml) ONE (12:53)
[2025-06-07] MEDS ORDERED: KETAMINE 50mg/ML 10ml Vial 10 ML ONE (12:53)
[2025-06-07] MEDS ORDERED: ONDANSETRON HCL 4 MG/2 ML VIAL ONE (12:53)
[2025-06-07] MEDS ORDERED: PROPOFOL 10 MG/ML 20 ML IV ONE (12:53)
[2025-06-07] MEDS ORDERED: GLYCOPYRROLATE 0.2 MG/ML 1ML VIAL ONE (12:53)
[2025-06-07] MEDS ORDERED: fentaNYL CITRATE 100 MCG/2 ML VL ONE (12:53)
[2025-06-07] MEDS: ceFAZolin 2 GM/D5W50ml 50 ML IV ONE (13:22)
--- NOTE | 2025-06-07 14:14 | DVHOP2 ---
Operative Report - 2 Report Details Date: 06/07/25 Preop Diagnosis: Left foot gangrene Postop Diagnosis: Same Surgeon: Wyatt Cali MD Anesthesiologist: Curtis Anesthesia: Mac, Regional Consent: The patient was informed of the risks and benefits of the procedure. These include but are not limited to complications of anesthesia, postoperative infection, incomplete relief of symptoms, recurrence of symptoms, damage to blood vessels, nerves and tendons, deep venous thrombosis, pulmonary embolism and possible need for repeat surgery in the future. Estimated Blood Loss: 100 mL Name of Procedure Performed Left above knee amputation Procedure Details Procedure Details: Patient was identified in the preop hold area. He has been consented in preop by myself he was brought back to the operating placed on operative table in supine position. After adequate induction of anesthesia antibiotics and time- out the left leg was prepped and draped in the normal surgical fashion. A standard above knee amputation incision was made with a fishmouth appearance. Bovie cauterization was used for hemostasis. Muscle was Bovie cauterized to di ssect through to the femur. The superficial femoral artery and vein were both isolated and ligated with 0 silk sutures x2. The remaining posterior muscles were then divided. The muscles were then dissected off of the femur more proximally the femur was then cut with a bone saw. The specimen was sent off for pathology. The wound was then irrigated out thoroughly no further bleeding was noted and then closure was being on closure was performed with 2-0 Vicryl sutures for the deep muscle layers followed by dermal layer closure with 2-0 Vicryl sutures. Skin was closed with catalino. Sterile dressing was applied including gauze Kerlix Hans wrap. Patient awoke with a any difficulties was taken to the PACU in a stable condition sponge and needle count was correct. Specimen: Left above knee amputation Condition Stable Disposition Still a Patient WYATT CALI Jr., MD Jun 07, 2025 14:14
[2025-06-07] MEDS ORDERED: diphenhdrAMINE HCL 50 MG/1 ML VL IV PRN (14:30)
[2025-06-07] MEDS ORDERED: NALOXONE HCL 0.4 MG/ML VIAL IV PRN (14:30)
[2025-06-07] MEDS ORDERED: ONDANSETRON HCL 4 MG/2 ML VIAL IV PRN ×2 (14:30)
[2025-06-07] MEDS: KETOROLAC TROMETH 30 MG/ML 1ML VIAL IV PRN (18:15)
[2025-06-08] VITALS (22 sets, daily range): BP systolic 82–160; BP diastolic 48–79; PULSE 70–100; RESP 16–95; TEMP 98–98.6; O2SAT 92–100
[2025-06-08 06:28] LABS: Hematocrit 29.9 % (41.0-53.0); Hemoglobin 10.3 g/dL (13.5-17.5); Mean Corpuscular Hemoglobin 31.0 pg (28.0-32.0); Mean Corpuscular Volume 89.7 fL (80.0-100.0); Nucleated Red Blood Cells % 0.0 %
[2025-06-08 06:59] LABS: Alanine Aminotransferase < 9 U/L (7-40); Alkaline Phosphatase 74 U/L (46-116); Anion Gap 4 (5-15); BUN/Creatinine Ratio 26.4 (10.0-20.0); Blood Urea Nitrogen 14 mg/dL (9-23); Calcium 7.9 mg/dL (8.7-10.4); Carbon Dioxide 25 mmol/L (20-31); Chloride 107 mmol/L (98-107); Glucose 119 mg/dL (74-106); Potassium 3.7 mmol/L (3.5-5.1); Sodium 136 mmol/L (136-145); Total Protein 6.2 g/dL (5.7-8.2)
[2025-06-08 07:00] LABS: Albumin 3.3 g/dL (3.2-4.8)
[2025-06-08 07:03] LABS: Bilirubin, Total 0.2 mg/dL (0.2-1.0)
[2025-06-08] MEDS: DOCUSATE SOD 100 MG CAP PO PRN (12:20)
--- NOTE | 2025-06-08 12:32 | DVHPN2 ---
Subjective The patient seen and examined at bedside. Complains of pain in the leg. Status post surgery Reviewed: Care Plan, H&P, Labs, Medications, Previous Orders, Radiology Changes from previous H/P or p: No Changes Objective Vitals Vital Signs Date Time Temp Pulse Resp B/P (MAP) Pulse Ox O2 Delivery O2 Flow Rate FiO2 06/08/25 10:46 97 16 95 06/08/25 10:02 160/79 06/08/25 09:00 98.6 98.6 06/07/25 20:00 Room Air* 0 21 Intake/Output Intake and Output 06/08/25 07:00 Intake Total 1050 ml Output Total 2800 ml Balance -1750 ml Intake Oral 900 ml IV Total 150 ml Output Urine Total 2800 ml General Appearance: Alert, Oriented X3, Cooperative, No acute distress HEENT: Atraumatic, PERRLA, EOMI, Mucous membr. moist/pink Neck: Supple Lungs: Clear to auscultation, Normal air movement Cardiovascular: Regular rate, Normal S1, Normal S2, No murmurs, Gallops, Rubs Abdomen: Normal bowel sounds, Soft, No tenderness Neuro: Cranial nerves 3-12 NL Psych/Mental Status: Mental status NL Medications Current Medications Medications Dose Ordered Sig/Omar Route Start Time Stop Time Status Last Admin Dose Admin Aspirin 81 mg DAILY PO 06/05/25 10:00 06/08/25 10:00 81 MG Atorvastatin Calcium 80 mg HS PO 06/04/25 22:00 06/07/25 21:29 80 MG Cilostazol 100 mg BID PO 06/04/25 22:00 06/08/25 10:01 100 MG Furosemide 20 mg DAILY PO 06/05/25 10:00 06/08/25 10:01 20 MG Hydralazine HCl 50 mg Q8HR PO 06/04/25 22:00 06/08/25 05:46 50 MG Lisinopril 5 mg DAILY PO 06/05/25 10:00 06/08/25 10:02 5 MG Minoxidil 5 mg DAILY PO 06/05/25 10:00 06/08/25 09:59 5 MG Nicotine 1 patch DAILY TD 06/05/25 10:00 06/08/25 10:04 1 PATCH Pantoprazole Sodium 40 mg DAILY PO 06/05/25 10:00 06/08/25 09:57 40 MG Sucralfate 1 gm TIDWMEALS PO 06/04/25 18:00 06/08/25 12:19 1 GM Tamsulosin HCl 0.4 mg QPM PO 06/04/25 18:00 06/07/25 17:58 0.4 MG Sodium Chloride 10 ml Q8HR IV 06/04/25 22:00 06/08/25 05:47 10 ML Docusate Sodium 100 mg BIDPRN PRN PO 06/04/25 17:30 06/08/25 12:20 100 MG Acetaminophen 650 mg Q6HP PRN PO 06/04/25 17:30 Acetaminophen/ Hydrocodone Bitart 1 tab Q4HP PRN PO 06/04/25 17:30 06/08/25 08:04 1 TAB Ondansetron HCl 4 mg Q4HP PRN IV 06/04/25 17:30 Enoxaparin Sodium 30 mg DAILY SC 06/05/25 10:00 06/08/25 10:03 30 MG Vancomycin HCl 0 ml @ 0 mls/hr UD IV 06/04/25 17:30 Piperacillin Sod/ Tazobactam Sod 100 ml @ 25 mls/hr Q8HR IV 06/04/25 22:00 06/08/25 05:46 25 MLS/HR Enteral Nutritional Formula 28.8 gm DAILY PO 06/07/25 10:00 06/08/25 10:04 28.8 GM Enteral Nutritional Formula 240 ml TIDWM PO 06/06/25 18:00 06/08/25 12:13 240 ML Mupirocin 1 applic BID EACHNOSTRI 06/07/25 10:00 06/12/25 09:59 06/08/25 10:06 1 APPLIC Vancomycin HCl 100 ml @ 100 mls/hr Q12H IV 06/07/25 10:00 06/08/25 09:59 100 MLS/HR Diphenhydramine HCl 25 mg Q4HP PRN IV 06/07/25 14:30 Ondansetron HCl 4 mg Q4HP PRN IV 06/07/25 14:30 Ketorolac Tromethamine 15 mg Q6HP PRN IV 06/07/25 14:30 06/12/25 14:29 06/07/25 18:15 15 MG Laboratory Results Laboratory Tests 06/08/25 05:08 Chemistry Test 06/08/25 05:08 Albumin 3.3 g/dL (3.2-4.8) Calcium Level 7.9 mg/dL (8.7-10.4) L Total Protein 6.2 g/dL (5.7-8.2) LFT Test 06/08/25 05:08 Alanine Aminotransferase (ALT) < 9 U/L (7-40) Alkaline Phosphatase 74 U/L (46-116) Aspartate Amino Transferase (AST) 21 U/L (13-40) Total Bilirubin 0.2 mg/dL (0.2-1.0) Microbiology Microbiology Date/Time Source Procedure Growth Status 06/05/25 18:20 Nose MRSA Screen - Final Methicillin Resistant S.aureus Complete Labs and/or images reviewed: Labs reviewed by me Assessment/Plan Assessment/Plan Left lower extremity cellulitis and dry gangrene History of left foot 3rd 4th and 5th digit amputation in February as they were a gangrenous 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 PVD Hyperlipidemia Continue current management. Continue IV antibiotic. Continue pain medication Status post amputation Continue statin. Continue wound care. Physical therapy evaluation and treat. Discharge planning This medical document was created using an electronic medical record system with [employer] computerized dictation system. Although this document has been carefully reviewed, there may still be some phonetic and typographical errors. These areas are purely typographical due to imperfections of the software programs, and do not reflect any compromise in the patient's medical care. Plan discussed with: Patient My Orders Orders - GRIFFIN DEWEY MD Procedure Category Date Status Time Transfer Orders XFER 06/07/25 Transmitted 17:42 Electrocardigram EKG 06/08/25 Logged 09:32 Date of Service: Jun 08, 2025 Billing Provider: GRIFFIN DEWEY MD Common Visit Codes: [id number] INP/OBS CARE(HIGH) GRIFFIN DEWEY MD Jun 08, 2025 12:32
--- NOTE | 2025-06-08 13:15 | ECG ---
[facility] Test Date: 2025-06-07 Test Time: 13:00:41 Pat Name: BOB PIERRE Department: Room: 0207T A Gender: M Home Manager: PAMELA : 1960 Requested By: GRIFFIN DEWEY Order Number: [id number] Reading MD: Tevin Ambriz Measurements Intervals [place] Rate: 83 P: -13 VT: 132 QRS: 66 QRSD: 84 T: 68 QT: 420 QTc: 493 Interpretive Statements Normal sinus rhythm Prolonged QT Electronically Signed On 06-08-2025 17:21:32 PDT by Tevin Ambriz Please click the below link to view image of tracing.
[2025-06-09] VITALS (18 sets, daily range): BP systolic 92–128; BP diastolic 52–76; PULSE 83–128; RESP 16–20; TEMP 97.4–100; O2SAT 93–96
[2025-06-09 10:35] LABS: Hematocrit 28.6 % (41.0-53.0); Hemoglobin 9.8 g/dL (13.5-17.5); Mean Corpuscular Hemoglobin 30.5 pg (28.0-32.0); Mean Corpuscular Volume 89.1 fL (80.0-100.0); Nucleated Red Blood Cells % 0.0 %
[2025-06-09 10:38] LABS: Alkaline Phosphatase 62 U/L (46-116); Anion Gap 4 (5-15); BUN/Creatinine Ratio 23.8 (10.0-20.0); Bilirubin, Total 0.4 mg/dL (0.2-1.0); Blood Urea Nitrogen 10 mg/dL (9-23); Carbon Dioxide 24 mmol/L (20-31); Chloride 107 mmol/L (98-107); Glucose 103 mg/dL (74-106); Total Protein 6.2 g/dL (5.7-8.2)
[2025-06-09 10:49] LABS: Alanine Aminotransferase 9 U/L (7-40); Albumin 3.2 g/dL (3.2-4.8); Calcium 8.1 mg/dL (8.7-10.4); Potassium 3.4 mmol/L (3.5-5.1); Sodium 135 mmol/L (136-145)
--- NOTE | 2025-06-09 12:20 | DVHPN2 ---
Subjective The patient seen and examined at bedside. Complains of pain in the leg. Status post surgery Reviewed: Care Plan, H&P, Labs, Medications, Previous Orders, Radiology Changes from previous H/P or p: No Changes Objective Vitals Vital Signs Date Time Temp Pulse Resp B/P (MAP) Pulse Ox O2 Delivery O2 Flow Rate FiO2 06/09/25 10:28 118/62 06/09/25 09:00 98.3 84 20 95 98.3 06/09/25 08:30 Room Air* 0 21 Intake/Output Intake and Output 06/09/25 07:00 Intake Total 2190 ml Output Total 1850 ml Balance 340 ml Intake Oral 1790 ml IV Total 400 ml Output Urine Total 1850 ml General Appearance: Alert, Oriented X3, Cooperative, No acute distress HEENT: Atraumatic, PERRLA, EOMI, Mucous membr. moist/pink Neck: Supple Lungs: Clear to auscultation, Normal air movement Cardiovascular: Regular rate, Normal S1, Normal S2, No murmurs, Gallops, Rubs Abdomen: Normal bowel sounds, Soft, No tenderness Neuro: Cranial nerves 3-12 NL Psych/Mental Status: Mental status NL Medications Current Medications Medications Dose Ordered Sig/Omar Route Start Time Stop Time Status Last Admin Dose Admin Aspirin 81 mg DAILY PO 06/05/25 10:00 06/09/25 10:27 81 MG Atorvastatin Calcium 80 mg HS PO 06/04/25 22:00 06/08/25 22:03 80 MG Cilostazol 100 mg BID PO 06/04/25 22:00 06/09/25 10:28 100 MG Furosemide 20 mg DAILY PO 06/05/25 10:00 06/09/25 10:27 20 MG Hydralazine HCl 50 mg Q8HR PO 06/04/25 22:00 06/08/25 22:12 50 MG Lisinopril 5 mg DAILY PO 06/05/25 10:00 06/09/25 10:28 5 MG Minoxidil 5 mg DAILY PO 06/05/25 10:00 06/09/25 10:28 5 MG Nicotine 1 patch DAILY TD 06/05/25 10:00 06/09/25 10:28 1 PATCH Pantoprazole Sodium 40 mg DAILY PO 06/05/25 10:00 06/09/25 10:28 40 MG Sucralfate 1 gm TIDWMEALS PO 06/04/25 18:00 06/09/25 12:10 1 GM Tamsulosin HCl 0.4 mg QPM PO 06/04/25 18:00 06/08/25 17:53 0.4 MG Sodium Chloride 10 ml Q8HR IV 06/04/25 22:00 06/09/25 06:11 10 ML Docusate Sodium 100 mg BIDPRN PRN PO 06/04/25 17:30 06/08/25 12:20 100 MG Acetaminophen 650 mg Q6HP PRN PO 06/04/25 17:30 Acetaminophen/ Hydrocodone Bitart 1 tab Q4HP PRN PO 06/04/25 17:30 06/09/25 08:24 1 TAB Ondansetron HCl 4 mg Q4HP PRN IV 06/04/25 17:30 Enoxaparin Sodium 30 mg DAILY SC 06/05/25 10:00 06/09/25 10:28 30 MG Vancomycin HCl 0 ml @ 0 mls/hr UD IV 06/04/25 17:30 Piperacillin Sod/ Tazobactam Sod 100 ml @ 25 mls/hr Q8HR IV 06/04/25 22:00 06/09/25 07:07 25 MLS/HR Enteral Nutritional Formula 28.8 gm DAILY PO 06/07/25 10:00 06/09/25 10:29 28.8 GM Enteral Nutritional Formula 240 ml TIDWM PO 06/06/25 18:00 06/09/25 08:24 240 ML Mupirocin 1 applic BID EACHNOSTRI 06/07/25 10:00 06/12/25 09:59 06/09/25 10:29 1 APPLIC Vancomycin HCl 100 ml @ 100 mls/hr Q12H IV 06/07/25 10:00 06/09/25 10:28 100 MLS/HR Diphenhydramine HCl 25 mg Q4HP PRN IV 06/07/25 14:30 Ondansetron HCl 4 mg Q4HP PRN IV 06/07/25 14:30 Ketorolac Tromethamine 15 mg Q6HP PRN IV 06/07/25 14:30 06/12/25 14:29 06/07/25 18:15 15 MG Laboratory Results Laboratory Tests 06/09/25 09:36 Chemistry Test 06/09/25 09:36 Albumin 3.2 g/dL (3.2-4.8) Calcium Level 8.1 mg/dL (8.7-10.4) L Total Protein 6.2 g/dL (5.7-8.2) LFT Test 06/09/25 09:36 Alanine Aminotransferase (ALT) 9 U/L (7-40) Alkaline Phosphatase 62 U/L (46-116) Aspartate Amino Transferase (AST) 28 U/L (13-40) Total Bilirubin 0.4 mg/dL (0.2-1.0) Microbiology Microbiology Date/Time Source Procedure Growth Status 06/05/25 18:20 Nose MRSA Screen - Final Methicillin Resistant S.aureus Complete Labs and/or images reviewed: Labs reviewed by me Assessment/Plan Assessment/Plan Left lower extremity cellulitis and dry gangrene History of left foot 3rd 4th and 5th digit amputation in February as they were a gangrenous 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 PVD Hyperlipidemia Continue current management. Continue IV antibiotic. Continue pain medication Status post amputation Continue statin. Continue wound care. Physical therapy evaluation and treat. Discharge planning This medical document was created using an electronic medical record system with [employer] computerized dictation system. Although this document has been carefully reviewed, there may still be some phonetic and typographical errors. These areas are purely typographical due to imperfections of the software programs, and do not reflect any compromise in the patient's medical care. Plan discussed with: Patient Date of Service: Jun 09, 2025 Billing Provider: GRIFFIN DEWEY MD Common Visit Codes: [id number] INP/OBS CARE(HIGH) GRIFFIN DEWEY MD Jun 09, 2025 12:20
--- NOTE | 2025-06-09 15:07 | DVHCONRES ---
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 Admitted with sepsis, severe anemia, and wound infection. Patient reports palpitations and skipped beats for many years but never formally evaluated. Over current admission he has had episodes of atrial fibrillation, and sinus tachycardia with QT prolongation.Previous admissions he had AV roslyn reentrant tachycardia, nonsustained VT, PVCs. He is hypotensive (SBP 7080s at times), required IV bolus. He denies current chest pain or syncope, endorses fatigue. Interval Events / Todays Progress * Hemodynamics: SBP 7080s fluctuating improved to 110-120 post iv fluids bolus. * Rhythm: Telemetry strips alternating between AFib, sinus tachycardia, NSVT, PVCs, AV dissociation (seen on prior EKG). * EKGs: * 01/28/25: AV dissociation, QTc 578 ms. * 02/08/25: Sinus tachycardia, QTc 511 ms, nonspecific T abnormalities, low voltage. * 06/07/25: Normal sinus rhythm, QTc 493 ms. * 06/08/25: Sinus tachycardia with PVCs, QTc ~511 ms. * Echocardiogram (02/03/25): Technically limited study; LVEF 6065% (normal), RV size/function normal, valves grossly normal, no significant (DOUG 2.4 cm), no significant MS (MVA normal). * Labs: * Hgb trend 13.1 ? 10.3 ? 9.8 g/dL. * Na 135, K 3.4 (low), Ca 8.1 (low), Mg not reported. * BUN 10, Cr 0.42, GFR >110 (renal function intact). * INR 1.13, coagulation normal. * Infections: Ongoing IV antibiotics (Vanc + Zosyn). * Medications (cardiac relevant): Aspirin 81, Atorvastatin 80, Cilostazol 100 BID, Lisinopril 5 ,Held LASIX and minoxidil and hydralazine due to hypotension, Nitro SL PRN Past Medical History * Hypertension, hyperlipidemia. * PAD with bilateral stents. * Hepatitis C, cirrhosis. * Right foot amputation (prior). * Left above-knee amputation (06/07/25). * No prior PCI/CABG/RI. Past Surgical History * Right foot amputation (prior). * Left above-knee amputation (06/07/25). * No prior PCI/CABG/RI. Family History: FH: cancer G8 MOTHER, Onset:Unknown G8 SISTER, Onset:Unknown FH: lung cancer G8 FATHER, Onset:Unknown Hepatitis C 19 CHILD G8 SISTER, Onset:Unknown Social History Smokes daily Alcohol no Drugs; in NOT ANYMORE Allergies: Coded Allergies: NO KNOWN ALLERGIES (Unverified , 06/05/25) Home Meds Active Scripts Furosemide (Furosemide) 20 Mg Tab, 20 MG PO DAILY for 30 Days, #30 TAB [facility] 02/16/25 Pantoprazole Sodium Sesquihydr (Protonix) 40 Mg Tab, 40 MG PO DAILY for 60 Days, #60 TAB Prov:[facility] 02/16/25 Sucralfate (Sucralfate) 1 Gm Tab, 1 GM PO TIDWMEALS for 30 Days, #90 TAB Before meals Prov:[facility] 02/16/25 Sulfamethoxazole W/Trimethopri (Bactrim Ds Tablet) 1 Tab Tb, 1 TAB PO Q12HR for 14 Days, #28 TAB [facility] 02/16/25 Tamsulosin Hcl (Tamsulosin Hcl) 0.4 Mg Cap, 2 CAP PO DAILY, #60 CAP 5 Refills Prov:[facility] 10/04/24 Cilostazol (Cilostazol) 100 Mg Tab, 1 TAB PO BID, #60 TAB 5 Refills Prov:[facility] 10/04/24 Nicotine (Nicoderm 21MG/24HR) 1 Patch Ph, 1 PATCH TD DAILY for 30 Days, #30 PATCH Prov:[facility] 10/04/24 Minoxidil (Loniten) 2.5 Mg Tb, 5 MG PO DAILY for 30 Days, #60 TAB Prov:[facility] 10/04/24 Lisinopril (Lisinopril) 5 Mg Tab, 5 MG PO DAILY for 30 Days, #30 TAB Prov:[facility] 10/04/24 Hydralazine HCl (Hydralazine HCl) 25 Mg Tab, 50 MG PO Q8HR for 30 Days, #180 TAB Prov:[facility] 10/04/24 Atorvastatin Calcium (ATORVASTATIN CALCIUM) 20 Mg Tab, 80 MG PO HS for 30 Days, #120 TAB Prov:[facility] 10/04/24 Aspirin (Aspirin Low Dose) 81 Mg Tab, 81 MG PO DAILY for 30 Days, #30 TAB Prov:[facility] 10/04/24 Reported Medications Fluoxetine Hcl (Fluoxetine Hcl) 10 Mg Cap, 10 MG PO DAILY for 30 Days, MG 06/05/25 Review of Systems * CV: Palpitations, no chest pain, no syncope. * Pulm: No acute dyspnea. * Neuro: No new weakness or dizziness. Vital Signs Vital Signs Date Time Temp Pulse Resp B/P (MAP) Pulse Ox O2 Delivery O2 Flow Rate FiO2 06/09/25 13:32 95/47 06/09/25 13:00 99.8 83 20 95 99.8 06/09/25 08:30 Room Air* 0 21 Physical Exam * General: Ill, fatigued. * Vitals: SBP variable 99514, HR variable 46158g, SpO >94%. * CV: Irregular rhythm at times, no murmurs, peripheral pulses weak. * Lungs: Clear. * Extremities: Post-op left AKA site. Labs/Diagnostic Data Labs Test 06/09/25 09:36 06/08/25 21:07 06/06/25 15:17 06/05/25 04:36 Range/Units White Blood Count 7.2 4.4-10.8 10^3/uL Red Blood Count 3.21 L 4.5-5.90 10^6/uL Hemoglobin 9.8 L 13.5-17.5 g/dL Hematocrit 28.6 L 41.0-53.0 % Mean Corpuscular Volume 89.1 80.0-100.0 fL Mean Corpuscular Hemoglobin 30.5 28.0-32.0 pg Mean Corpuscular Hemoglobin Concent 34.2 32.0-36.0 g/dL Red Cell Distribution Width 16.1 H 11.8-14.3 % Platelet Count 276 140-450 10^3/uL Mean Platelet Volume 7.6 6.9-10.8 fL Neutrophils (%) (Auto) 65.7 37.0-80.0 % Lymphocytes (%) (Auto) 17.4 10.0-50.0 % Monocytes (%) (Auto) 12.5 H 0.0-12.0 % Eosinophils (%) (Auto) 4.0 0.0-7.0 % Basophils (%) (Auto) 0.4 0.0-2.0 % Neutrophils # (Auto) 4.7 1.6-8.6 10 ^3/uL Lymphocytes # (Auto) 1.3 0.4-5.4 10 ^3/uL Monocytes # (Auto) 0.9 0-1.3 10 ^3/uL Eosinophils # (Auto) 0.3 0-0.8 10 ^3/uL Basophils # (Auto) 0 0-0.2 10 ^3/uL Nucleated Red Blood Cells 0.0 % Sodium Level 135 L 136-145 mmol/L Potassium Level 3.4 L 3.5-5.1 mmol/L Chloride Level 107 98-107 mmol/L Carbon Dioxide Level 24 20-31 mmol/L Anion Gap 4 L 5-15 Blood Urea Nitrogen 10 9-23 mg/dL Creatinine 0.42 L 0.700-1.30 mg/dL Glomerular Filtration Rate Calc 118 >90 mL/min BUN/Creatinine Ratio 23.8 H 10.0-20.0 Serum Glucose 103 74-106 mg/dL Calcium Level 8.1 L 8.7-10.4 mg/dL Total Bilirubin 0.4 0.2-1.0 mg/dL Aspartate Amino Transferase (AST) 28 13-40 U/L Alanine Aminotransferase (ALT) 9 7-40 U/L Alkaline Phosphatase 62 46-116 U/L Total Protein 6.2 5.7-8.2 g/dL Albumin 3.2 3.2-4.8 g/dL Vancomycin Level Trough 13.9 H 5-10 ug/mL Prothrombin Time 11.8 9.3-11.8 sec Prothrombin Time INR 1.13 0.9-1.15 Activated Partial Thromboplast Time 31.4 24.5-34.5 SEC Random Vancomycin Level 7.6 5-10 ug/mL Hepatitis B Surface Antigen Negative Negative Test 06/04/25 14:05 Range/Units Erythrocyte Sedimentation Rate 47 H 0-20 mm/hr C-Reactive Protein High Sensitivity 3.60 H <1.0 mg/dL Microbiology Date/Time Source Procedure Growth Status 06/05/25 18:20 Nose MRSA Screen - Final Methicillin Resistant S.aureus Complete Assessment 1. Arrhythmia alternating AFib, AVNRT, NSVT, sinus tachycardia with PVCs, QTc prolongation (QTc up to 511 ms). * Likely multifactorial: infection, anemia, electrolyte disturbances, pain, adrenergic surge. * YANETH?DS?-VASc = 3 (HTN, PAD, age [age]). Anticoagulation usually indicated. * However, anemia, , recent major surgery very high bleeding risk (HAS- BLED >3). 2. Hemodynamic instability: Hypotension episodes, likely multifactorial (sepsis, anemia, arrhythmia, post-op) IMPROVED post discontinuation of lasixs, minoxidil and hydralazine and administration of bolus iv fluids. 3. Electrolyte abnormalities: Hypokalemia (3.4), hypocalcemia (8.1), 4. anemia: Hb 9.8 trending down. 5. PAD s/p bilateral stents, left AKA, right amputation. 6. Sepsis / wound infection. Plan/Recommendation Treatment Plan Cardiovascular * Rate control: Start Metoprolol tartrate 25 mg PO BID;, HR <60, MAP <65. Target HR <110 bpm * Anticoagulation: Start Apixaban 5 mg PO BID for stroke prevention in AFib (YANETH?DS?-VASc = 3). Stop enoxaparin prophylaxis once Eliquis is initiated. * Antiplatelet therapy: Discontinue Aspirin 81 mg daily (bleeding risk). Start Clopidogrel 75 mg PO daily for PAD/atherosclerotic protection in setting of s moking and prior stenting. * GI prophylaxis: Start Pantoprazole 40 mg PO daily for upper GI bleed protection while on anticoagulation + antiplatelet. * Electrolyte optimization: Replete potassium >4.0, magnesium >2.0, calcium to normal range. Daily BMP, Mg, Ca. * QT prolongation precautions: Avoid QT-prolonging agents (macrolides, fluoroquinolones, amiodarone, methadone, ondansetron high dose). * Monitoring: Continuous telemetry. Repeat ECG in 2448 hrs to reassess rhythm and QTc. Hematology * Monitor CBC daily x3 then PRN. * Watch closely for bleeding signs (melena, hematuria, wound oozing). * Transfuse PRBC if Hgb <7 g/dL or symptomatic anemia. Infectious Disease * Continue broad-spectrum antibiotics (Vancomycin + Zosyn per ID/primary team) for wound infection; infection control important as it is a trigger for arrhythmia. Secondary Prevention / Risk Modification * Continue Atorvastatin 80 mg PO daily (HLD/PAD). * Strict smoking cessation counseling (nicotine patch already on DEC). * Control BP once hemodynamics stable. Prophylaxis * VTE: Covered by Apixaban (after initiation); stop heparin/enoxaparin prophylaxis. * GI: Pantoprazole daily Disposition / Follow-up * Cardiology follow-up inpatient daily; outpatient follow-up within 24 weeks post-discharge. * Outpatient event monitor to quantify AF burden and guide long-term rhythm vs rate control. Case discussed in detail with the attending physician, including the clinical presentation, diagnostic workup, and comprehensive management plan. The patient was present for the discussion and demonstrated understanding of his condition and the proposed plan. Plan discussed with: Patient Visit Coding Cardiology RES Date of Service: Jun 09, 2025 Billing Provider: ANNITA PRINCE RESIDENT Cardiology Common Codes: [id number] INP/OBS CARE (High) ANNITA PRINCE Jun 09, 2025 15:07
[2025-06-09] MEDS: POTASSIUM EFFERVESENT TAB 25 MEQ PO ONE (16:50)
[2025-06-09 17:16] LABS: Magnesium 1.6 mg/dL (1.6-2.6)
[2025-06-09] MEDS: METOPROLOL TARTRATE 25 MG TAB PO SCH (21:22)
[2025-06-09] MEDS: APIXABAN 5 MG TAB PO SCH (21:22)
[2025-06-10] VITALS (8 sets, daily range): BP systolic 101–137; BP diastolic 46–71; PULSE 72–97; RESP 16–20; TEMP 97.2–98.8; O2SAT 94–96
[2025-06-10 06:23] LABS: Hematocrit 28.8 % (41.0-53.0); Hemoglobin 10.0 g/dL (13.5-17.5); Mean Corpuscular Hemoglobin 30.6 pg (28.0-32.0); Mean Corpuscular Volume 88.4 fL (80.0-100.0); Nucleated Red Blood Cells % 0.0 %
[2025-06-10] MEDS: CLOPIDOGREL BISULFATE 75 MG TAB PO SCH (09:12)
--- NOTE | 2025-06-10 10:00 | DVHPN2 ---
Subjective The patient seen and examined at bedside. Complains of pain in the leg. Status post surgery Reviewed: Care Plan, H&P, Labs, Medications, Previous Orders, Radiology Changes from previous H/P or p: No Changes Objective Vitals Vital Signs Date Time Temp Pulse Resp B/P (MAP) Pulse Ox O2 Delivery O2 Flow Rate FiO2 06/10/25 09:32 97 126/65 06/10/25 09:03 97.8 20 96 97.8 06/09/25 20:00 Room Air* 0 21 Intake/Output Intake and Output 06/10/25 07:00 Intake Total 1814 ml Output Total 2725 ml Balance -911 ml Intake Oral 1314 ml IV Total 500 ml Output Urine Total 2725 ml General Appearance: Alert, Oriented X3, Cooperative, No acute distress HEENT: Atraumatic, PERRLA, EOMI, Mucous membr. moist/pink Neck: Supple Lungs: Clear to auscultation, Normal air movement Cardiovascular: Regular rate, Normal S1, Normal S2, No murmurs, Gallops, Rubs Abdomen: Normal bowel sounds, Soft, No tenderness Neuro: Cranial nerves 3-12 NL Psych/Mental Status: Mental status NL Medications Current Medications Medications Dose Ordered Sig/Omar Route Start Time Stop Time Status Last Admin Dose Admin Atorvastatin Calcium 80 mg HS PO 06/04/25 22:00 06/09/25 21:22 80 MG Cilostazol 100 mg BID PO 06/04/25 22:00 06/10/25 09:15 100 MG Lisinopril 5 mg DAILY PO 06/05/25 10:00 06/09/25 10:28 5 MG Nicotine 1 patch DAILY TD 06/05/25 10:00 06/10/25 09:18 1 PATCH Pantoprazole Sodium 40 mg DAILY PO 06/05/25 10:00 06/10/25 09:12 40 MG Sucralfate 1 gm TIDWMEALS PO 06/04/25 18:00 06/10/25 09:12 1 GM Tamsulosin HCl 0.4 mg QPM PO 06/04/25 18:00 06/09/25 16:50 0.4 MG Sodium Chloride 10 ml Q8HR IV 06/04/25 22:00 06/10/25 06:00 10 ML Docusate Sodium 100 mg BIDPRN PRN PO 06/04/25 17:30 06/08/25 12:20 100 MG Acetaminophen 650 mg Q6HP PRN PO 06/04/25 17:30 Acetaminophen/ Hydrocodone Bitart 1 tab Q4HP PRN PO 06/04/25 17:30 06/10/25 09:45 1 TAB Vancomycin HCl 0 ml @ 0 mls/hr UD IV 06/04/25 17:30 Piperacillin Sod/ Tazobactam Sod 100 ml @ 25 mls/hr Q8HR IV 06/04/25 22:00 06/10/25 05:25 25 MLS/HR Enteral Nutritional Formula 28.8 gm DAILY PO 06/07/25 10:00 06/10/25 09:15 28.8 GM Enteral Nutritional Formula 240 ml TIDWM PO 06/06/25 18:00 06/10/25 08:00 240 ML Mupirocin 1 applic BID EACHNOSTRI 06/07/25 10:00 06/12/25 09:59 06/10/25 09:17 1 APPLIC Vancomycin HCl 100 ml @ 100 mls/hr Q12H IV 06/07/25 10:00 06/10/25 09:16 100 MLS/HR Diphenhydramine HCl 25 mg Q4HP PRN IV 06/07/25 14:30 Ondansetron HCl 4 mg Q4HP PRN IV 06/07/25 14:30 Ketorolac Tromethamine 15 mg Q6HP PRN IV 06/07/25 14:30 06/12/25 14:29 06/07/25 18:15 15 MG Apixaban 5 mg BID PO 06/09/25 22:00 06/10/25 09:13 5 MG Clopidogrel Bisulfate 75 mg DAILY PO 06/10/25 10:00 06/10/25 09:12 75 MG Metoprolol Tartrate 25 mg BID PO 06/09/25 22:00 06/10/25 09:32 25 MG Laboratory Results Laboratory Tests 06/09/25 09:36 06/10/25 05:05 Microbiology Microbiology Date/Time Source Procedure Growth Status 06/05/25 18:20 Nose MRSA Screen - Final Methicillin Resistant S.aureus Complete Labs and/or images reviewed: Labs reviewed by me Assessment/Plan Assessment/Plan Left lower extremity cellulitis and dry gangrene status post [id number] amputation History of left foot 3rd 4th and 5th digit amputation in February as they were a gangrenous 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 PVD Hyperlipidemia Pseudomonas wound infection Continue current management. Continue IV antibiotic with Zosyn. Continue pain medication Status post amputation Continue statin. Continue wound care. Physical therapy evaluation and treat. Discharge planning Home health for wound care This medical document was created using an electronic medical record system with [employer] direct computerized dictation system. Although this document has been carefully reviewed, there may still be some phonetic and typographical errors. These areas are purely typographical due to imperfections of the software programs, and do not reflect any compromise in the patient's medical care. Plan discussed with: Patient Date of Service: Jun 10, 2025 Billing Provider: GRIFFIN DEWEY MD Common Visit Codes: [id number] INP/OBS CARE(HIGH) GRIFFIN DEWEY MD Jun 10, 2025 10:00
--- NOTE | 2025-06-10 15:23 | DVHPN2 ---
Consult Progress Note Subjective Patient reports: No new complaints Objective vital signs Vital Sign Date Time Temp Pulse Resp B/P (MAP) Pulse Ox O2 Delivery O2 Flow Rate FiO2 06/10/25 13:38 97.9 73 20 136/71 (92) 96 97.9 06/10/25 08:00 Room Air* 0 21 Total Intake and Output 06/09/25 06/09/25 06/10/25 15:00 23:00 07:00 Intake Total 200 ml 580 ml 1034 ml Output Total 400 ml 2325 ml Balance 200 ml 180 ml -1291 ml medications Current Medications Medications Dose Ordered Sig/Omar Route Start Time Stop Time Status Last Admin Dose Admin Atorvastatin Calcium 80 mg HS PO 06/04/25 22:00 06/09/25 21:22 80 MG Cilostazol 100 mg BID PO 06/04/25 22:00 06/10/25 09:15 100 MG Lisinopril 5 mg DAILY PO 06/05/25 10:00 06/09/25 10:28 5 MG Nicotine 1 patch DAILY TD 06/05/25 10:00 06/10/25 09:18 1 PATCH Pantoprazole Sodium 40 mg DAILY PO 06/05/25 10:00 06/10/25 09:12 40 MG Sucralfate 1 gm TIDWMEALS PO 06/04/25 18:00 06/10/25 12:25 1 GM Tamsulosin HCl 0.4 mg QPM PO 06/04/25 18:00 06/09/25 16:50 0.4 MG Sodium Chloride 10 ml Q8HR IV 06/04/25 22:00 06/10/25 14:19 10 ML Docusate Sodium 100 mg BIDPRN PRN PO 06/04/25 17:30 06/08/25 12:20 100 MG Acetaminophen 650 mg Q6HP PRN PO 06/04/25 17:30 Acetaminophen/ Hydrocodone Bitart 1 tab Q4HP PRN PO 06/04/25 17:30 06/10/25 13:57 1 TAB Vancomycin HCl 0 ml @ 0 mls/hr UD IV 06/04/25 17:30 Piperacillin Sod/ Tazobactam Sod 100 ml @ 25 mls/hr Q8HR IV 06/04/25 22:00 06/10/25 14:15 25 MLS/HR Enteral Nutritional Formula 28.8 gm DAILY PO 06/07/25 10:00 06/10/25 09:15 28.8 GM Enteral Nutritional Formula 240 ml TIDWM PO 06/06/25 18:00 06/10/25 12:25 240 ML Mupirocin 1 applic BID EACHNOSTRI 06/07/25 10:00 06/12/25 09:59 06/10/25 09:17 1 APPLIC Vancomycin HCl 100 ml @ 100 mls/hr Q12H IV 06/07/25 10:00 06/10/25 09:16 100 MLS/HR Diphenhydramine HCl 25 mg Q4HP PRN IV 06/07/25 14:30 Ondansetron HCl 4 mg Q4HP PRN IV 06/07/25 14:30 Ketorolac Tromethamine 15 mg Q6HP PRN IV 06/07/25 14:30 06/12/25 14:29 06/07/25 18:15 15 MG Apixaban 5 mg BID PO 06/09/25 22:00 06/10/25 09:13 5 MG Clopidogrel Bisulfate 75 mg DAILY PO 06/10/25 10:00 06/10/25 09:12 75 MG Metoprolol Tartrate 25 mg BID PO 06/09/25 22:00 06/10/25 09:32 25 MG laboratory and microbiology Laboratory Tests 06/10/25 05:05 06/09/25 09:36 Test 06/09/25 09:36 Range/Units Serum Glucose 103 74-106 mg/dL Problem List/Assessment/Plan Problem List/Assessment/Plan 1. Arrhythmia alternating AFib, AVNRT, NSVT, sinus tachycardia with PVCs, QTc prolongation (QTc up to 511 ms). * Likely multifactorial: infection, anemia, electrolyte disturbances, pain, adrenergic surge. * YANETH?DS?-VASc = 3 (HTN, PAD, age [age]). Anticoagulation usually indicated. * on Eliquis 5 mg p.o. twice daily, monitoring for bleeding. 2. Hemodynamic instability: Hypotension episodes, likely multifactorial (sepsis, anemia, arrhythmia, post-op) IMPROVED post discontinuation of lasixs, minoxidil and hydralazine and administration of bolus iv fluids. Monitor on metoprolol. 3. Electrolyte abnormalities: Hypokalemia (3.4), hypocalcemia (8.1), 4. anemia: Hb 9.8 trending down. 5. PAD s/p bilateral stents, left AKA, right amputation. 6. Sepsis / wound infection. Plan/Recommendation Treatment Plan Cardiovascular * Rate control: Continue Metoprolol tartrate 25 mg PO BID;, HR <60, MAP <65. Target HR <110 bpm * Anticoagulation: Continue Apixaban 5 mg PO BID for stroke prevention in AFib (YANETH?DS?-VASc = 3). Stop enoxaparin prophylaxis once Eliquis is initiated. * Antiplatelet therapy: Discontinue Aspirin 81 mg daily (bleeding risk). Continue Clopidogrel 75 mg PO daily for PAD/atherosclerotic protection in setting of smoking and prior stenting. * GI prophylaxis: Start Pantoprazole 40 mg PO daily for upper GI bleed protection while on anticoagulation + antiplatelet. * Electrolyte optimization: Replete potassium >4.0, magnesium >2.0, calcium to normal range. Daily BMP, Mg, Ca. * QT prolongation precautions: Avoid QT-prolonging agents (macrolides, fluoroquinolones, amiodarone, methadone, ondansetron high dose). * Monitoring: Continuous telemetry. Repeat ECG in 2448 hrs to reassess rhythm and QTc. Case Discussed with Dr Ambriz. Heart rate remained stable. Continue on metoprolol. Plan of care discussed with the patient as was initially refusing medication in the a.m.. Now is willing to take medication. BP continues to remain stable on metoprolol, titrate as tolerated. No further cardiac intervention indicated at this time. Please call for any questions or concerns. Critical care, time spent: 40 minutes This medical document was created using an electronic medical record system with voice recognition software and computerized dictation system. Although this document has been carefully reviewed, there might still be some phonetic and typographical errors. Occasional wrong-word or ``sound-alike substitutions may have occurred due to the inherent limitations of voice recognition software. These areas are purely typographical due to imperfections of the software programs and do not reflect any compromise in the patient's medical care. Please read the chart carefully and recognize, using context, where these substitutions have occurred. Thank you for allowing me to participate in the management of this patient. The treatment plan was discussed with and agreed upon by patient/family including requesting consultants and ordering of imaging/procedures. Plan discussed with: Patient Dietary Evaluation Review Comments: [place] pt's needs to faciliated healing after AKA surgery Offer Glucern TID for protein and energy Offer Jose A BID for healing Expected Outcomes/Goals: gradual wt gain, healed wounds, controlled DM. Date of Service: Jun 10, 2025 Billing Provider: SLADE YANG Common Visit Codes: [id number] INP/OBS CARE(HIGH), [id number] CARE 30-74 MIN SLADE YANG Jun 10, 2025 15:23
[2025-06-11] VITALS (8 sets, daily range): BP systolic 104–147; BP diastolic 54–73; PULSE 69–77; RESP 18–20; TEMP 97.2–98.4; O2SAT 90–96
[2025-06-12] VITALS (9 sets, daily range): BP systolic 104–141; BP diastolic 42–68; PULSE 69–87; RESP 16–18; TEMP 97.2–97.9; O2SAT 91–96
--- NOTE | 2025-06-12 09:15 | DVHPN2 ---
Subjective The patient seen and examined at bedside. Complains of pain in the leg. Status post surgery Reviewed: Care Plan, H&P, Labs, Medications, Previous Orders, Radiology Changes from previous H/P or p: No Changes Objective Vitals Vital Signs Date Time Temp Pulse Resp B/P (MAP) Pulse Ox O2 Delivery O2 Flow Rate FiO2 06/12/25 09:00 97.6 69 16 105/61 (76) 92 97.6 06/12/25 08:02 Room Air* 0 21 Intake/Output Intake and Output 06/12/25 07:00 Intake Total 1260 ml Output Total 2450 ml Balance -1190 ml Intake Oral 960 ml IV Total 300 ml Output Urine Total 2450 ml General Appearance: Alert, Oriented X3, Cooperative, No acute distress HEENT: Atraumatic, PERRLA, EOMI, Mucous membr. moist/pink Neck: Supple Lungs: Clear to auscultation, Normal air movement Cardiovascular: Regular rate, Normal S1, Normal S2, No murmurs, Gallops, Rubs Abdomen: Normal bowel sounds, Soft, No tenderness Neuro: Cranial nerves 3-12 NL Psych/Mental Status: Mental status NL Medications Current Medications Medications Dose Ordered Sig/Omar Route Start Time Stop Time Status Last Admin Dose Admin Atorvastatin Calcium 80 mg HS PO 06/04/25 22:00 06/11/25 21:55 80 MG Cilostazol 100 mg BID PO 06/04/25 22:00 06/11/25 21:55 100 MG Lisinopril 5 mg DAILY PO 06/05/25 10:00 06/09/25 10:28 5 MG Nicotine 1 patch DAILY TD 06/05/25 10:00 06/11/25 10:45 1 PATCH Pantoprazole Sodium 40 mg DAILY PO 06/05/25 10:00 06/11/25 10:46 40 MG Sucralfate 1 gm TIDWMEALS PO 06/04/25 18:00 06/12/25 08:01 1 GM Tamsulosin HCl 0.4 mg QPM PO 06/04/25 18:00 06/11/25 18:13 0.4 MG Sodium Chloride 10 ml Q8HR IV 06/04/25 22:00 06/12/25 07:14 10 ML Docusate Sodium 100 mg BIDPRN PRN PO 06/04/25 17:30 06/08/25 12:20 100 MG Acetaminophen 650 mg Q6HP PRN PO 06/04/25 17:30 Acetaminophen/ Hydrocodone Bitart 1 tab Q4HP PRN PO 06/04/25 17:30 06/12/25 08:09 1 TAB Vancomycin HCl 0 ml @ 0 mls/hr UD IV 06/04/25 17:30 Piperacillin Sod/ Tazobactam Sod 100 ml @ 25 mls/hr Q8HR IV 06/04/25 22:00 06/12/25 05:51 25 MLS/HR Enteral Nutritional Formula 28.8 gm DAILY PO 06/07/25 10:00 06/11/25 10:00 28.8 GM Enteral Nutritional Formula 240 ml TIDWM PO 06/06/25 18:00 06/12/25 08:01 240 ML Mupirocin 1 applic BID EACHNOSTRI 06/07/25 10:00 06/12/25 09:59 06/11/25 21:56 1 APPLIC Vancomycin HCl 100 ml @ 100 mls/hr Q12H IV 06/07/25 10:00 06/11/25 23:38 100 MLS/HR Diphenhydramine HCl 25 mg Q4HP PRN IV 06/07/25 14:30 Ondansetron HCl 4 mg Q4HP PRN IV 06/07/25 14:30 Ketorolac Tromethamine 15 mg Q6HP PRN IV 06/07/25 14:30 06/12/25 14:29 06/07/25 18:15 15 MG Apixaban 5 mg BID PO 06/09/25 22:00 06/11/25 21:56 5 MG Clopidogrel Bisulfate 75 mg DAILY PO 06/10/25 10:00 06/11/25 10:46 75 MG Metoprolol Tartrate 25 mg BID PO 06/09/25 22:00 06/11/25 22:00 25 MG Laboratory Results Laboratory Tests 06/09/25 09:36 06/10/25 05:05 Microbiology Microbiology Date/Time Source Procedure Growth Status 06/05/25 18:20 Nose MRSA Screen - Final Methicillin Resistant S.aureus Complete Assessment/Plan Assessment/Plan Left lower extremity cellulitis and dry gangrene status post [id number] amputation History of left foot 3rd 4th and 5th digit amputation in February as they were a gangrenous 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 PVD Hyperlipidemia Pseudomonas wound infection Continue current management. Continue IV antibiotic with Zosyn. Continue pain medication Status post amputation Continue statin. Continue wound care. Physical therapy evaluation and treat. Discharge planning Home health for wound care This medical document was created using an electronic medical record system with [employer] direct computerized dictation system. Although this document has been carefully reviewed, there may still be some phonetic and typographical errors. These areas are purely typographical due to imperfections of the software programs, and do not reflect any compromise in the patient's medical care. Plan discussed with: Patient My Orders Orders - GRIFFIN DEWEY MD Procedure Category Date Status Time * Transmission Design Engineer CONS 06/11/25 Transmitted Consult Date of Service: Jun 11, 2025 Billing Provider: GRIFFIN DEWEY MD Common Visit Codes: [id number] INP/OBS CARE(HIGH) GRIFFIN DEWEY MD Jun 12, 2025 09:15
--- NOTE | 2025-06-12 12:39 | DVHPN2 ---
Subjective The patient seen and examined at bedside. Complains of pain in the leg. Status post surgery Reviewed: Care Plan, H&P, Labs, Medications, Previous Orders, Radiology Changes from previous H/P or p: No Changes Objective Vitals Vital Signs Date Time Temp Pulse Resp B/P (MAP) Pulse Ox O2 Delivery O2 Flow Rate FiO2 06/12/25 09:37 69 105/61 06/12/25 09:00 97.6 16 92 97.6 06/12/25 08:02 Room Air* 0 21 Intake/Output Intake and Output 06/12/25 07:00 Intake Total 1260 ml Output Total 2450 ml Balance -1190 ml Intake Oral 960 ml IV Total 300 ml Output Urine Total 2450 ml General Appearance: Alert, Oriented X3, Cooperative, No acute distress HEENT: Atraumatic, PERRLA, EOMI, Mucous membr. moist/pink Neck: Supple Lungs: Clear to auscultation, Normal air movement Cardiovascular: Regular rate, Normal S1, Normal S2, No murmurs, Gallops, Rubs Abdomen: Normal bowel sounds, Soft, No tenderness Neuro: Cranial nerves 3-12 NL Psych/Mental Status: Mental status NL Medications Current Medications Medications Dose Ordered Sig/Omar Route Start Time Stop Time Status Last Admin Dose Admin Atorvastatin Calcium 80 mg HS PO 06/04/25 22:00 06/11/25 21:55 80 MG Cilostazol 100 mg BID PO 06/04/25 22:00 06/12/25 09:36 100 MG Lisinopril 5 mg DAILY PO 06/05/25 10:00 06/09/25 10:28 5 MG Nicotine 1 patch DAILY TD 06/05/25 10:00 06/12/25 09:38 1 PATCH Pantoprazole Sodium 40 mg DAILY PO 06/05/25 10:00 06/12/25 09:36 40 MG Sucralfate 1 gm TIDWMEALS PO 06/04/25 18:00 06/12/25 12:00 1 GM Tamsulosin HCl 0.4 mg QPM PO 06/04/25 18:00 06/11/25 18:13 0.4 MG Sodium Chloride 10 ml Q8HR IV 06/04/25 22:00 06/12/25 07:14 10 ML Docusate Sodium 100 mg BIDPRN PRN PO 06/04/25 17:30 06/08/25 12:20 100 MG Acetaminophen 650 mg Q6HP PRN PO 06/04/25 17:30 Acetaminophen/ Hydrocodone Bitart 1 tab Q4HP PRN PO 06/04/25 17:30 06/12/25 12:27 1 TAB Vancomycin HCl 0 ml @ 0 mls/hr UD IV 06/04/25 17:30 Piperacillin Sod/ Tazobactam Sod 100 ml @ 25 mls/hr Q8HR IV 06/04/25 22:00 06/12/25 05:51 25 MLS/HR Enteral Nutritional Formula 28.8 gm DAILY PO 06/07/25 10:00 06/12/25 09:37 28.8 GM Enteral Nutritional Formula 240 ml TIDWM PO 06/06/25 18:00 06/12/25 11:57 240 ML Vancomycin HCl 100 ml @ 100 mls/hr Q12H IV 06/07/25 10:00 06/12/25 09:37 100 MLS/HR Diphenhydramine HCl 25 mg Q4HP PRN IV 06/07/25 14:30 Ondansetron HCl 4 mg Q4HP PRN IV 06/07/25 14:30 Ketorolac Tromethamine 15 mg Q6HP PRN IV 06/07/25 14:30 06/12/25 14:29 06/07/25 18:15 15 MG Apixaban 5 mg BID PO 06/09/25 22:00 06/12/25 09:37 5 MG Clopidogrel Bisulfate 75 mg DAILY PO 06/10/25 10:00 06/12/25 09:36 75 MG Metoprolol Tartrate 25 mg BID PO 06/09/25 22:00 06/11/25 22:00 25 MG Laboratory Results Laboratory Tests 06/09/25 09:36 06/10/25 05:05 Microbiology Microbiology Date/Time Source Procedure Growth Status 06/05/25 18:20 Nose MRSA Screen - Final Methicillin Resistant S.aureus Complete Labs and/or images reviewed: Labs reviewed by me Assessment/Plan Assessment/Plan Left lower extremity cellulitis and dry gangrene status post [id number] amputation History of left foot 3rd 4th and 5th digit amputation in February as they were a gangrenous 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 PVD Hyperlipidemia Pseudomonas wound infection Continue current management. Continue IV antibiotic with Zosyn. Continue pain medication Status post amputation Continue statin. Continue wound care. Physical therapy evaluation and treat. Discharge planning Waiting for home health to set up today Home health for wound care BETSY Aviles This medical document was created using an electronic medical record system with [employer] direct computerized dictation system. Although this document has been carefully reviewed, there may still be some phonetic and typographical errors. These areas are purely typographical due to imperfections of the software programs, and do not reflect any compromise in the patient's medical care. Plan discussed with: Patient My Orders Orders - GRIFFIN DEWEY MD Procedure Category Date Status Time * Lidding Machine Operator CONS 06/11/25 Transmitted Consult * Lidding Machine Operator CONS 06/12/25 Transmitted Consult Date of Service: Jun 12, 2025 Billing Provider: GRIFFIN DEWEY MD Common Visit Codes: [id number] INP/OBS CARE(HIGH) GRIFFIN DEWEY MD Jun 12, 2025 12:39
[2025-06-12] MEDS: TRIAMCINOLONE ACET 0.1% TOPICAL CREAM 15GM TOP SCH (21:34)
[2025-06-13 01:00] VITALS: BP 150/81; PULSE 88; RESP 18; TEMP 98.2; O2SAT 93
[2025-06-13 05:00] VITALS: BP 121/60; PULSE 87; RESP 20; TEMP 97.6; O2SAT 91
[2025-06-13 08:00] VITALS: PULSE 85
[2025-06-13 09:00] VITALS: BP 95/57; PULSE 85; RESP 18; TEMP 97.9; O2SAT 94
[2025-06-13 10:17] VITALS: BP 107/65; PULSE 84
--- NOTE | 2025-06-13 11:07 | DVHDS2 ---
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 PVD Hyperlipidemia Pseudomonas wound infection Labs/Diagnostic Data: Laboratory Results Test 06/13/25 09:30 06/10/25 05:05 06/09/25 09:36 06/06/25 15:17 Creatinine 0.50 mg/dL (0.700-1.30) Glomerular Filtration Rate Calc 112 mL/min (>90) Vancomycin Level Trough 13.8 ug/mL (5-10) White Blood Count 6.9 10^3/uL (4.4-10.8) Red Blood Count 3.26 10^6/uL (4.5-5.90) Hemoglobin 10.0 g/dL (13.5-17.5) Hematocrit 28.8 % (41.0-53.0) Mean Corpuscular Volume 88.4 fL (80.0-100.0) Mean Corpuscular Hemoglobin 30.6 pg (28.0-32.0) Mean Corpuscular Hemoglobin Concent 34.6 g/dL (32.0-36.0) Red Cell Distribution Width 15.6 % (11.8-14.3) Platelet Count 292 10^3/uL (140-450) Mean Platelet Volume 7.8 fL (6.9-10.8) Neutrophils (%) (Auto) 57.5 % (37.0-80.0) Lymphocytes (%) (Auto) 23.5 % (10.0-50.0) Monocytes (%) (Auto) 12.4 % (0.0-12.0) Eosinophils (%) (Auto) 5.8 % (0.0-7.0) Basophils (%) (Auto) 0.8 % (0.0-2.0) Neutrophils # (Auto) 3.9 10 ^3/uL (1.6-8.6) Lymphocytes # (Auto) 1.6 10 ^3/uL (0.4-5.4) Monocytes # (Auto) 0.9 10 ^3/uL (0-1.3) Eosinophils # (Auto) 0.4 10 ^3/uL (0-0.8) Basophils # (Auto) 0.1 10 ^3/uL (0-0.2) Nucleated Red Blood Cells 0.0 % Sodium Level 135 mmol/L (136-145) Potassium Level 3.4 mmol/L (3.5-5.1) Chloride Level 107 mmol/L (98-107) Carbon Dioxide Level 24 mmol/L (20-31) Anion Gap 4 (5-15) Blood Urea Nitrogen 10 mg/dL (9-23) BUN/Creatinine Ratio 23.8 (10.0-20.0) Serum Glucose 103 mg/dL (74-106) Calcium Level 8.1 mg/dL (8.7-10.4) Phosphorus Level 3.3 mg/dL (2.4-5.1) Magnesium Level 1.6 mg/dL (1.6-2.6) Total Bilirubin 0.4 mg/dL (0.2-1.0) Aspartate Amino Transferase (AST) 28 U/L (13-40) Alanine Aminotransferase (ALT) 9 U/L (7-40) Alkaline Phosphatase 62 U/L (46-116) Total Protein 6.2 g/dL (5.7-8.2) Albumin 3.2 g/dL (3.2-4.8) Thyroid Stimulating Hormone (TSH) 3.34 uIU/mL (0.55-4.78) Prothrombin Time 11.8 sec (9.3-11.8) Prothrombin Time INR 1.13 (0.9-1.15) Activated Partial Thromboplast Time 31.4 SEC (24.5-34.5) Test 06/05/25 04:36 06/04/25 14:05 Random Vancomycin Level 7.6 ug/mL (5-10) Hepatitis B Surface Antigen Negative (Negative) Erythrocyte Sedimentation Rate 47 mm/hr (0-20) C-Reactive Protein High Sensitivity 3.60 mg/dL (<1.0) Other Laboratory Tests 06/13/25 09:30 06/10/25 05:05 06/09/25 09:36 Brief Hx & Hospital Course: This is a 65 years old male come to emergency department because of left foot wound. The patient stated that he had these wounds in February of 2025 when he had left foot 3rd, 4th, and 5th digit amputation as they was gangrenous. He states since then he had severe and intense pain on the left lower extremities and the pain get worse so he come to hospital for further evaluation. Per patient he does have a wound care nurse come to his house to change dressing 3 times per weeks. He does have previous history amputation to the right legs at the legs were gangrenous. The patient was admitted. The patient was put on IV antibiotic with vancomycin and Zosyn. The patient subsequently had a left extremity [id number] amputation. Patient recover well after surgery. The wound culture showed Pseudomonas and multiple organism the chest MRSA and Enterococcus faecalis sensitive to vancomycin and also linezolid. The patient will be discharged home today. Discharge with home health for wound care. The patient will continuing linezolid and Augmentin for 14 days. Follow up with primary care physician 1-2 weeks. Follow up with vascular surgeon Dr. Fitzpatrick per schedule. Activity as tolerated. Diet per home diet. Physical exam: HEENT: Normocephalic atraumatic pupils equal react to light and accommodation. Extraocular muscles intact, conjunctiva pink, oropharynx moist, no thrush, no exudate. Lymphatic: No lymphadenopathy Cardiovascular exam: S1, S2 was heard. No murmurs, rubs, gallops Lung: Clear on auscultation bilaterally, no wheeze, rale, rhonchi. GI: Abdominal soft, nondistended, nontenderness, positive bowel sounds. Extremity: No crepitus, cyanosis, edema. Bilateral uiqla-xou-uyei amputation Skin: Normal turgor, no rash. Psych: Alert, oriented x3. Neurology: No focal deficits, cranial nerve II to XII grossly intact. This medical document was created using an electronic medical record system with [employer] direct computerized dictation system. Although this document has been carefully reviewed, there may still be some phonetic and typographical errors. These areas are purely typographical due to imperfections of the software programs, and do not reflect any compromise in the patient's medical care. 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 PVD Hyperlipidemia Pseudomonas wound infection Discharge Disposition: Home with Health Services Discharge Instruct/Medications Diet: Cardiac 2g Na,low cholest Activity: No Restrictions, As Tolerated Scheduled Amoxicillin & Pot Clavulanate (Augmentin Tablet), 875 MG PO BID Aspirin (Aspirin Low Dose), 81 MG PO DAILY Atorvastatin Calcium (Atorvastatin Calcium), 80 MG PO HS Cilostazol (Cilostazol), 1 TAB PO BID Fluoxetine Hcl (Fluoxetine Hcl), 10 MG PO DAILY, (Reported) Furosemide (Furosemide), 20 MG PO DAILY Hydralazine HCl (Hydralazine HCl), 50 MG PO Q8HR Linezolid (Linezolid), 600 MG PO BID Lisinopril (Lisinopril), 5 MG PO DAILY Minoxidil (Loniten), 5 MG PO DAILY Nicotine (Nicoderm 21MG/24HR), 1 PATCH TD DAILY Pantoprazole Sodium Sesquihydr (Protonix), 40 MG PO DAILY Sucralfate (Sucralfate), 1 GM PO TIDWMEALS Tamsulosin Hcl (Tamsulosin Hcl), 2 CAP PO DAILY Discontinued Medications Sulfamethoxazole W/Trimethopri (Bactrim Ds Tablet), 1 TAB PO Q12HR Discharge Statement: "Patient was advised to return to the ER or call 911 if any headaches, dizziness, shortness of breath, chest pain, abdominal pain, bleeding, fevers, or worsening of medical condition. Patient was counseled about treatment plan, medications, possible side effects, patientverbalized understanding. All questions were answered to the best of my ability. This discharge took greater then 30 minutes in planning, reviewing documentation, counseling the patient, and discussing with other team members." ASSESSMENT ASSESSMENT Assessment Same Date of Service: Jun 13, 2025 Billing Provider: GRIFFIN DEWEY MD Common Visit Codes: [id number] DISCH DAY >30min GRIFFIN DEWEY MD Jun 13, 2025 11:07
[2025-06-13] MEDS ORDERED: AUG875T PO (11:10)
[2025-06-13] MEDS ORDERED: LINE1TAB10 PO (11:10)
[2025-06-13 13:00] VITALS: BP 146/81; PULSE 91; RESP 19; TEMP 98.2; O2SAT 96
--- NOTE | 2025-06-14 11:52 | ECG ---
[facility] Test Date: 2025-06-09 Test Time: 15:28:48 Pat Name: BOB PIERRE Department: [facility] Room: [facility] Gender: M Fancy Packer: MILDRED : 1960 Requested By: ANNITA PRINCE Order Number: [id number] Reading MD: Tevin Ambriz Measurements Intervals [place] Rate: 105 P: 63 AK: 118 QRS: 72 QRSD: 80 T: 71 QT: 358 QTc: 474 Interpretive Statements Sinus tachycardia Ventricular premature complex Baseline wander in lead(s) V4 Electronically Signed On 06-15-2025 14:28:08 PDT by Tevin Ambriz Please click the below link to view image of tracing.
== END 2025-06-13 16:09 | disposition home health service (06) | DRG 854 ==
LOC: ER 13:37 → OVERFLOW 17:28 → CENTRAL 06-05 15:26 → TELE-CENTR 06-07 23:19 → TELE-WESTW 06-09 20:34
PROVIDERS: ADMIT Internal Medicine; ATTEND Internal Medicine
PROC: 0Y6D0Z1 Detachment at Left Upper Leg, High, Open Approach (ICD-10-PCS; principal; 2025-06-07 13:22)
DX: A41.9 Sepsis, unspecified organism (principal); E11.52 Type 2 diabetes mellitus with diabetic peripheral angiopathy with gangrene; L03.116 Cellulitis of left lower limb; E78.5 Hyperlipidemia, unspecified; I11.0 Hypertensive heart disease with heart failure; I49.9 Cardiac arrhythmia, unspecified; B95.62 Methicillin resistant Staphylococcus aureus infection as the cause of diseases classified elsewhere; Z79.82 Long term (current) use of aspirin; Z79.899 Other long term (current) drug therapy; Z89.519 Acquired absence of unspecified leg below knee; Z89.431 Acquired absence of right foot; Z80.1 Family history of malignant neoplasm of trachea, bronchus and lung
CPT/HCPCS: 36415; 71045; 73718; 80048; 80053; 80202; 82565; 83735; 84100; 84443; 85025; 85610; 85652; 85730; 86141; 86850; 86900; 86901; 87077; 87081; 87186; 87340; 93005; 96365; 96375; 97163; G0378; J1885; J2003; J2250; J2405; J2543; J2704; J3490